=== PATIENT | female | born 1945 | race Caucasian/White ===

== ENCOUNTER → 2018-04-25 13:55 | Outpatient (CLI) | payer MEDICARE, OTHER, SELFPAY | PROVIDERS: PCP Physician Assistant; Visit Provider Physician Assistant | DX: M85.88 Other specified disorders of bone density and structure, other site (principal); Z78.0 Asymptomatic menopausal state; Z82.62 Family history of osteoporosis | CPT/HCPCS: 77080 ==

== ENCOUNTER → 2019-01-14 14:36 | Outpatient (CLI) | payer MEDICARE, OTHER, SELFPAY ==
[2019-01-14 15:35] LABS: Alanine Aminotransferase 23 IU/L (9-52); Albumin 4.6 g/dL (3.5-5.0); Albumin Globulin Ratio 1.6 (1.0-2.8); Alkaline Phosphatase 47 U/L (38-126); Aspartate Aminotransferase 28 IU/L (14-36); BUN Creatinine Ratio 17.5 (6-22); Bilirubin Total 0.5 mg/dL (0.2-1.3); Blood Urea Nitrogen 14 mg/dL (7-17); Calcium 9.7 mg/dL (8.4-10.2); Carbon Dioxide 30 mmol/L (22-32); Chloride 104 mmol/L (98-107); Estimated Glomerular Filt Rate > 60.0 mL/min (>60); Globulin 2.8 g/dL (1.7-4.1); Glucose 71 mg/dL (80-110); HEMOLYSIS < 15 (0-50); Potassium 4.7 mmol/L (3.4-5.1); Sodium 142 mmol/L (137-145); Total Protein 7.4 g/dL (6.3-8.2)
[2019-01-14 15:36] LABS: Iron 132 ug/dL (37-170)
[2019-01-14 15:40] LABS: Add Manual Diff / Slide Review NO; Basophils Absolute Auto 0 /uL (0-100); Basophils Percent Auto 0.7 % (0-2); Eosinophils Absolute Auto 0 /uL (0-450); Eosinophils Percent Auto 0.9 % (2-4); Hematocrit 37.1 % (36-46); Hemoglobin 12.4 g/dL (12.0-16.0); Lymphocytes Absolute Auto 1600 /uL (1100-4500); Lymphocytes Percent Auto 36.8 % (25-40); Mean Corpuscular HGB Conc 33.6 % (30-36); Mean Corpuscular Hemoglobin 31.7 PG (26-34); Mean Corpuscular Volume 94.3 fL (80-100); Monocytes Absolute Auto 600 /uL (0-900); Monocytes Percent Auto 13.2 % (3-14); Neutrophils Absolute Auto 2200 /uL (1500-7000); Neutrophils Percent Auto 48.4 % (50-75); Platelet Count 248 X10^3/uL (150-400); Red Blood Cell Count 3.93 X10^6/uL (4.0-5.2); Red Cell Distribution Width 14.3 % (11.6-14.8); White Blood Cell Count 4.5 X10^3/uL (4.5-11.0)
[2019-01-14 15:52] LABS: Vitamin D 25 Hydroxy (D3) 38.4 ng/mL (30.0-100.0)
[2019-01-14 16:06] LABS: Thyroid Stimulating Hormone 0.67 uIU/mL (0.47-4.68)
[2019-01-14 16:24] LABS: Vitamin B12 303 pg/mL (239-931)
== END ==
PROVIDERS: PCP Physician Assistant; Visit Provider Physician Assistant
DX: M81.0 Age-related osteoporosis without current pathological fracture (principal); R25.1 Tremor, unspecified; R26.89 Other abnormalities of gait and mobility; Z86.2 Personal history of diseases of the blood and blood-forming organs and certain disorders involving the immune mechanism
CPT/HCPCS: 36415; 80053; 82306; 82607; 83540; 84443; 85025

== ENCOUNTER → 2019-03-10 12:09 | Outpatient (CLI) | payer MEDICARE, OTHER, SELFPAY ==
--- NOTE | 2019-03-10 | DI.MG.S_ITS ---
BILATERAL DIGITAL SCREENING MAMMOGRAM 3D/2D WITH CAD WITH AUGMENTATION: 03/10/2019 CLINICAL: Routine screening. Family history of breast cancer. Comparison is made to exams dated: 11/05/2017 mammogram, 10/25/2015 mammogram, and 01/16/2013 mammogram - [facility]. The tissue of both breasts is extremely dense, which lowers the sensitivity of mammography. Current study was also evaluated with a Computer Aided Detection (CAD) system. Bilateral breast implants are stable. No significant masses, calcifications, or other findings are seen in either breast. There has been no significant interval change. IMPRESSION: NEGATIVE There is no mammographic evidence of malignancy. A 1 year screening mammogram is recommended. This exam was interpreted at Station ID: [id number]. NOTE: For mammograms, a report in lay terms will be sent to the patient. Approximately 15% of breast malignancies will not be visualized mammographically. In the management of a palpable breast mass, a negative mammogram must not discourage biopsy of a clinically suspicious lesion. Electronically Signed By: Chayo rosario/jaylon:03/10/2019 12:52:20 letter sent: Normal Exam ACR BI-RADS Category 1: Negative 3341F
== END ==
PROVIDERS: PCP Physician Assistant; Visit Provider Physician Assistant
DX: Z12.31 Encounter for screening mammogram for malignant neoplasm of breast (principal); Z80.3 Family history of malignant neoplasm of breast
CPT/HCPCS: 77063; 77067

== ENCOUNTER 2019-03-25 07:39 | Day surgery (SDC) | payer MEDICARE, OTHER, SELFPAY ==
--- NOTE | 2019-03-21 12:31 | PM.PREOP ---
Pre-operative Note Interval Note History & Physical reviewed/Exam performed by Physician: Yes Changes to H&P: No
--- NOTE | 2019-03-21 12:31 | PM.OP.1 ---
Operative Date/Time/Diagnoses Date of procedure: 03/25/19 Time of procedure: 08:45 Procedure & Clinicians Procedure: Preoperative diagnoses: 1. Right nuclear sclerotic and cortical cataract. Postoperative diagnoses: 1. Cataract removed by phacoemulsification with placement of posterior chamber intraocular lens. Procedure: Phacoemulsification with posterior chamber intraocular lens implant Surgeon: Carlene Avilez MD Complications: None Specimen: None Implant: ZCBOO+23.5 Blood loss: None Anesthesia: Retrobulbar with monitored standby Description of procedure: Patient presents with a complaint of decreased vision due to cataract which is affecting activities of daily living including driving and reading. Preoperative vision is 20/30 for distance with glare to 20/200. The patient wants surgery to improve vision. The patient was taken to the operating room and given IV sedation. A retrobulbar block consisting of 6 cc of 2% xylocaine without epinephrine mixed half and half with 0.5% Marcaine with 1 cc of hyaluronidase added is placed between the medial and lateral 1/3 of the inferior orbital rim. The eye is manually massaged for 30 sec, prepped using Betadine solution, and draped in the usual sterile fashion. Temporal approach was made, a 1 mm side-port incision was made 90? from the proposed clear corneal incision position. Phenylephrine 1.5% mixed with 1% xylocaine 0.2 cc was placed into the anterior chamber. Viscoat followed by Farnaz was then placed. A 2.6 mm clear incision with a 2.6 mm blade was placed. A 360 degree capsulorrhexis style capsulotomy was then performed with a cystitome needle on a Healon. Hydrodelineation and hydrodissection were performed. She had slight discomfort and therefore a topical lidocaine jelly was added with good relief. The phacoemulsification unit is introduced, and sculpting notice used to groove the central lens. It is then removed in chopping mode. Epi nucleus is removed with epinuclear mode and irrigation aspiration was used to remove the peripheral cortex. The posterior capsule is polished. The intraocular lens is selected, inspected, power confirmed, and placed in the posterior chamber. The wound was stromally hydrated and tested for leaks, there was none and it was left sutureless. Vigamox 0.1 cc was placed into the anterior chamber. Kenalog 0.2 cc was placed in the superior subconjunctival space. A drop of antibiotic and was placed and the eye was patched and shielded. The patient was stable and returned to the recovery room in excellent condition. Dictated by: Carlene Avilez MD Copy to: [facility]
[2019-03-25] MEDS: PROPARACAINE 0.5% OPHTH SOL 2 DROPS EYE-OP (08:04)
[2019-03-25] MEDS: CATARACT EYE COMPOUND (10 DROPS/SYRINGE) 3 DROPS EYE-OP ×5 (08:06→08:31)
[2019-03-25 08:14] VITALS: BP 121/78; PULSE 70; RESP 15; TEMP 36.1; O2SAT 99; BMI 19.0
--- NOTE | 2019-03-25 09:11 | SUR.OPER ---
Supine on eye stretcher, head on extension cradle secured with tape. Arms tucked at sides with blanket. Pillow under knees.
[2019-03-25] MEDS: HYALURONATE SODIUM 10 MG/ML SYRINGE INJ (09:15)
[2019-03-25] MEDS: BALANCED SALT IRRIG SOLN NO.2 15 ML IRR (09:15)
[2019-03-25] MEDS: BALANCED SALT IRRIG SOLN NO.2 500 ML, EPINEPHrine 1 MG IRR (09:15)
[2019-03-25] MEDS: CHONDROIDTIN/SOD HYALURONATE 1.05 ML SYRINGE INTRAOCULA (09:16)
[2019-03-25] MEDS: MOXIFLOXACIN INJ 5 MG/ML VIAL EYE-OP (09:18)
[2019-03-25] MEDS: NEOMYCIN/POLY/DEX OPHTH OINT 1 APPLIC EYE-RIGHT (09:18)
[2019-03-25] MEDS: PHENYLEPHRINE/LIDOCAINE VIAL (OR) 0.2 ML EYE-OP (09:19)
[2019-03-25] MEDS: TRIAMCINOLONE 50 MG/5 ML VIAL INJ (09:19)
[2019-03-25] MEDS: LIDOCAINE 2% 4 ML, BUPIVACAINE 0.5% (PF) 4 ML, HYALURONIDASE 150 UNIT INJ (09:20)
[2019-03-25] MEDS: LIDOCAINE JELLY 2% 5 ML 1 APPLIC TOP (09:22)
[2019-03-25 09:45] VITALS: BP 119/72; PULSE 70; RESP 15; TEMP 36.8; O2SAT 99
== END 2019-03-25 10:00 | disposition home or self-care (01) ==
LOC: OR 07:41
PROVIDERS: PCP Physician Assistant; Visit Provider Ophthalmology
PROC: (CPT 66984; principal; 2019-03-25 08:45)
DX: H25.811 Combined forms of age-related cataract, right eye (principal)
CPT/HCPCS: 66984; J0171; J2704; J3301; J3470

== ENCOUNTER 2019-04-01 09:26 | Day surgery (SDC) | payer MEDICARE, OTHER, SELFPAY ==
--- NOTE | 2019-03-28 12:57 | P.OP_ITS ---
Operative Date/Time/Diagnoses Date of procedure: 04/01/19 Time of procedure: 10:45 Procedure & Clinicians Procedure: Preoperative diagnoses: 1. Left nuclear sclerotic and cortical cataract. 2. Narrow angle anatomy with high hyperopic status. Postoperative diagnoses: 1. Cataract removed by phacoemulsification with placement of posterior chamber intraocular lens. Procedure: Phacoemulsification with posterior chamber intraocular lens implant Surgeon: Carlene Avilez MD Complications: None Specimen: None Implant: ZCBOO+26.5 Blood loss: None Anesthesia: Retrobulbar with monitored standby Description of procedure: Patient presents with a complaint of decreased vision due to cataract which is affecting activities of daily living especially distance. She has an anisotropia since recent right cataract surgery. The patient wants surgery to improve vision. The patient was taken to the operating room and given IV sedation. A retrobulbar block consisting of 6 cc of 2% xylocaine without epinephrine mixed half and half with 0.5% Marcaine with 1 cc of hyaluronidase added is placed between the medial and lateral 1/3 of the inferior orbital rim. The eye is manually massaged for 30 sec, prepped using Betadine solution, and draped in the usual sterile fashion. Temporal approach was made, a 1 mm side-port incision was made 90? from the proposed clear corneal incision position. Phenylephrine 1.5% mixed with 1% xylocaine 0.2 cc was placed into the anterior chamber. Viscoat followed by Ryanon was then placed. A 2.6 mm clear incision with a 2.6 mm blade was placed. A 360 degree capsulorrhexis style capsulotomy was then performed with a cystitome needle on a Healon. Hydrodelineation and hydrodissection were performed.She has dense arcus sinilus. The phacoemulsification unit is introduced, and sculpting notice used to groove the central lens. It is then removed in chopping mode. Epi nucleus is removed with epinuclear mode and irrigation aspiration was used to remove the peripheral cortex. The posterior capsule is polished. The intraocular lens is selected, inspected, power confirmed, and placed in the posterior chamber. The wound was stromally hydrated and tested for leaks, there was none and it was left sutureless. Vigamox 0.1 cc was placed into the anterior chamber. Kenalog 0.2 cc was placed in the superior subconjunctival space. A drop of antibiotic and was placed and the eye was patched and shielded. The patient was stable and returned to the recovery room in excellent condition. Dictated by: Carlene Avilez MD Copy to: [facility]
--- NOTE | 2019-03-28 12:57 | PM.PREOP ---
Pre-operative Note Interval Note History & Physical reviewed/Exam performed by Physician: Yes Changes to H&P: No
[2019-04-01] MEDS: PROPARACAINE 0.5% OPHTH SOL 2 DROPS EYE-OP (10:00)
[2019-04-01] MEDS: CATARACT EYE COMPOUND (10 DROPS/SYRINGE) 3 DROPS EYE-OP (10:05)
[2019-04-01 10:09] VITALS: BP 116/71; PULSE 73; RESP 18; TEMP 36.5; O2SAT 99; BMI 19.5
[2019-04-01] MEDS: LIDOCAINE 2% 4 ML, BUPIVACAINE 0.5% (PF) 4 ML, HYALURONIDASE 150 UNIT INJ (10:58)
[2019-04-01] MEDS: CHONDROIDTIN/SOD HYALURONATE 1.05 ML SYRINGE INTRAOCULA (11:12)
[2019-04-01] MEDS: HYALURONATE SODIUM 10 MG/ML SYRINGE INJ (11:12)
[2019-04-01] MEDS: MOXIFLOXACIN INJ 5 MG/ML VIAL EYE-OP (11:13)
[2019-04-01] MEDS: PHENYLEPHRINE/LIDOCAINE VIAL (OR) 0.2 ML EYE-OP (11:13)
[2019-04-01] MEDS: NEOMYCIN/POLY/DEX OPHTH OINT 1 APPLIC EYE-LEFT (11:13)
[2019-04-01] MEDS: TRIAMCINOLONE 50 MG/5 ML VIAL INJ (11:14)
[2019-04-01] MEDS: BALANCED SALT IRRIG SOLN NO.2 500 ML, EPINEPHrine 1 MG IRR (11:14)
[2019-04-01 13:45] VITALS: BP 142/74; PULSE 69; RESP 20; TEMP 36.2; O2SAT 100
== END 2019-04-01 11:55 | disposition home or self-care (01) ==
LOC: OR 09:28
PROVIDERS: PCP Physician Assistant; Visit Provider Ophthalmology
PROC: (CPT 66984; principal; 2019-04-01 10:45)
DX: H25.812 Combined forms of age-related cataract, left eye (principal)
CPT/HCPCS: 66984; J0171; J2704; J3301; J3470

== ENCOUNTER → 2019-04-02 08:56 | Outpatient (CLI) | payer MEDICARE, OTHER, SELFPAY ==
[2019-04-02 10:34] LABS: Vitamin D 25 Hydroxy (D3) 34.1 ng/mL (30.0-100.0)
[2019-04-02 11:07] LABS: Vitamin B12 448 pg/mL (239-931)
== END ==
PROVIDERS: PCP Physician Assistant; Visit Provider Physician Assistant
DX: E53.8 Deficiency of other specified B group vitamins (principal); E55.9 Vitamin D deficiency, unspecified; M85.80 Other specified disorders of bone density and structure, unspecified site
CPT/HCPCS: 36415; 82306; 82607

== ENCOUNTER → 2019-04-21 12:53 | Outpatient (CLI) | payer MEDICARE, OTHER, SELFPAY | PROVIDERS: PCP Physician Assistant; Visit Provider Physician Assistant | DX: M85.851 Other specified disorders of bone density and structure, right thigh (principal); Z78.0 Asymptomatic menopausal state; Z82.62 Family history of osteoporosis | CPT/HCPCS: 77080 ==

== ENCOUNTER → 2019-05-28 15:26 | Outpatient (CLI) | payer MEDICARE, OTHER, SELFPAY ==
[2019-05-28 15:32] LABS: Bacteria Urine None Seen; RBC Urine None Seen (0-5/HPF); WBC Urine None Seen (0-5/HPF)
[2019-05-28 16:00] LABS: Appearance Urine UA CLOUDY; Bilirubin Urine UA NEGATIVE (NEGATIVE); Color Urine UA YELLOW; Glucose Urine UA NEGATIVE (Negative); Ketones Urine UA NEGATIVE (NEGATIVE); Leukocyte Esterase Urine UA NEGATIVE (NEGATIVE); Nitrite Urine UA NEGATIVE (Negative); Occult Blood Urine UA TRACE-LYSED (Negative); Protein Urine UA NEGATIVE (Negative); Specific Gravity Urine UA <=1.005 (1.000-1.035); Urobilinogen Urine UA 0.2 E.U./dL (0.2)
[2019-05-28 16:22] LABS: Amorphous Sediment Urine 3+; Culture Indicated Urine Cult Not Indicated; pH Urine UA 7.5 (4.5-8.0)
== END ==
PROVIDERS: PCP Physician Assistant; Visit Provider Physician Assistant
DX: R30.0 Dysuria (principal)
CPT/HCPCS: 81001

== ENCOUNTER → 2019-07-13 12:10 | Outpatient (CLI) | payer MEDICARE, OTHER, SELFPAY ==
[2019-07-13 14:26] LABS: Vitamin B12 565 pg/mL (239-931)
[2019-07-13 16:22] LABS: Vitamin D 25 Hydroxy (D3) 39.3 ng/mL (30.0-100.0)
== END ==
PROVIDERS: PCP Physician Assistant; Visit Provider Physician Assistant
DX: E55.9 Vitamin D deficiency, unspecified (principal); M81.0 Age-related osteoporosis without current pathological fracture; E53.8 Deficiency of other specified B group vitamins
CPT/HCPCS: 36415; 82306; 82607

== ENCOUNTER → 2019-08-20 17:54 | Outpatient (ROUT) | payer MEDICARE, OTHER, SELFPAY ==
[2019-08-20 19:32] LABS: Blood Urea Nitrogen 18 mg/dL (7-17); Calcium 10.1 mg/dL (8.4-10.2); Carbon Dioxide 27 mmol/L (22-32); Chloride 102 mmol/L (98-107); Cholesterol 243 mg/dL (140-199); Estimated Glomerular Filt Rate > 60.0 mL/min (>60); Glucose 144 mg/dL (80-110); HDL Cholesterol 109 mg/dL (40-60); HEMOLYSIS < 15 (0-50); LDL Cholesterol Calculated 115 mg/dL (<100); Potassium 3.9 mmol/L (3.4-5.1); Sodium 139 mmol/L (137-145); Triglycerides 95 mg/dL (35-150)
[2019-08-20 20:02] LABS: TSH w/ Reflex to FT4 0.94 uIU/mL (0.47-4.68)
== END ==
PROVIDERS: PCP Physician Assistant; Visit Provider Internal Medicine
DX: Z13.220 Encounter for screening for lipoid disorders (principal); R25.1 Tremor, unspecified
CPT/HCPCS: 80048; 80061; 84443

== ENCOUNTER → 2019-09-15 13:53 | Outpatient (ROUT) | payer MEDICARE, OTHER, SELFPAY | PROVIDERS: PCP Physician Assistant; Visit Provider Physician Assistant | DX: N39.0 Urinary tract infection, site not specified (principal) | CPT/HCPCS: 87077; 87086; 87186 ==

== ENCOUNTER → 2019-11-25 11:14 | Outpatient (CLI) | payer MEDICARE, OTHER, SELFPAY ==
--- NOTE | 2019-11-25 | DI.MRI.S_ITS ---
PROCEDURE: MR HEAD/BRAIN WO CON INDICATIONS: Repeated falls TECHNIQUE: Non-contrast axial T1 spin echo, axial T2 fast spin echo, sagittal and axial FLAIR, coronal T2 fast spin echo, axial gradient echo, axial diffusion and ADC through the brain. COMPARISON: None. FINDINGS: Image quality: Excellent. CSF spaces: Ventricles appear symmetric in size and shape. Basal cisterns are patent. No extra-axial fluid collections. Brain: No intracranial bleeds or mass effects. There is cerebral volume loss for age. There are periventricular and deep white matter chronic small vessel ischemic changes. Brainstem appears normal. Diffusion-weighted images show no acute ischemic insults. No chronic ischemic insults. Normal intravascular flow voids are present. Skull and face: Calvarial bone marrow is normal in signal. Orbits are normal. Sinuses: Sinuses and mastoids are clear. IMPRESSION: No sign of mass, hemorrhage, or prior stroke. Mild to moderate microvascular atherosclerotic change is present in the deep white matter of each hemisphere, expected for age. No sign of hydrocephalus. Dictated by: Stanton Barger M.D. on 11/25/2019 at 12:39 Approved by: Stanton Barger M.D. on 11/25/2019 at 12:43
== END ==
PROVIDERS: PCP Internal Medicine; Referring Provider Internal Medicine; Visit Provider Internal Medicine
DX: R29.6 Repeated falls (principal)
CPT/HCPCS: 70551

== ENCOUNTER 2020-02-09 07:20 | Outpatient (RCR) | payer MEDICARE, OTHER, SELFPAY ==
--- NOTE | 2020-02-09 15:30 | OT.OP.EVAL ---
Visit Care Team Role Provider Type Helen Burroughs MD Primary Care Provider Physician Specialty: Internal Medicine Address: [address] [place] [address], [id number] Email: [email or web address] Niurka Ritter MD Attending Provider Non-Staff Referring Provider Specialty: Neurology Address: [address] [facility], [place], [address] Email: Occupational Therapy Initial Evaluation OT Outpatient Adult Evaluation Start: 02/09/20 07:26 Freq: Status: Active Protocol: Document 02/09/20 07:27 AMS (Rec: 02/09/20 08:16 AMS [id number]) General Information Visit Start Time 07:30 Visit Stop Time 08:15 Total Visit Minutes 45 Visit Number 07/17 Plan of Care Dates 02/09/20-02/09/20 Insurance Information Medicare Treatment Setting Outpatient Care Note Type Initial Evaluation Identification Confirmed Yes Identification Confirmed By Patient Assessment/Plan Treatment Assessment Crystal is a 74 year-old left hand dominant female referred to outpatient OT secondary to dx of Parkinsons. Crystal is mainly concerned about her balance. She has a h /o frequent falling; she reports loss of balance when looking up and has difficulty completing s-s from certain surfaces (sofa). Discussed soft vs firm seat cushions and modifications that may support her success. She denied dizziness. Crystal does report difficulties w/ saliva management; discussed seeing a speech therapist to assist her in this area. She denied seeing a speech therapist previously. She recently had cataract surgery; she does not wear glasses. Eye doctor is sending her to specialist. She has sensitivities to light. Reading is a past time; she struggles w/ reading currently and has difficulty tracking to the L. Education was provided and recommended exploring books on CD/tape. Functional activities: Crystal resides with spouse. Crystal reports difficulties with writing; decreased fluidity and size compared to PLOF based on self report. Recommended focusing on 'big' formation of letters and w/ writing. Also discussed various AE available and techniques to support fluidity ; increased errors observed on this date w/ metronome use w/ written work. Crystal denied troubles with buttons and zippers and managing most jewelry items. She did state that she encountered difficulties with necklace clasps and has trouble w/ earrings. Crystal denied any troubles with dressing. Crystal reported a little confusion managing cell telephone. Crystal reports mod I w/ bathing and toileting. Her did buy a suction cup grab bar for the shower stall; discussed importance of installing into studs of home. Self feeding: Crystal reports having trouble staying in front of the plate but no difficulties utilizing utensils. She is aware that she tends to lean to the right . No further OT is needed at this time. Patient in agreement. Recommend re- evaluating in the future as deemed appropriate by PCP. Therapeutic Contents Self-Care Patient Recommendations Discharge from Occupational Therapy Suggested Referrals Physical Therapy,Speech Therapy
== END 2020-02-12 15:36 ==
LOC: OT 07:20
PROVIDERS: PCP Internal Medicine; Referring Provider Psychiatry & Neurology Neurology; Visit Provider Psychiatry & Neurology Neurology
DX: G20 Parkinson's disease (principal)
CPT/HCPCS: 97165; 97535

== ENCOUNTER → 2020-02-29 18:56 | Outpatient (ROUT) | payer MEDICARE, OTHER, SELFPAY ==
[2020-02-29 19:07] LABS: BUN Creatinine Ratio 25.9 (6-22); Blood Urea Nitrogen 21 mg/dL (7-17); Calcium 9.6 mg/dL (8.4-10.2); Carbon Dioxide 29 mmol/L (22-32); Chloride 101 mmol/L (98-107); Estimated Glomerular Filt Rate > 60.0 mL/min (>60); Glucose 156 mg/dL (80-110); HEMOLYSIS 20 (0-50); Potassium 3.8 mmol/L (3.4-5.1); Sodium 137 mmol/L (137-145)
[2020-02-29 19:56] LABS: Vitamin B12 > 1000 pg/mL (239-931)
[2020-03-02 04:36] LABS: RPR Screen Non Reactive (Non Reactive)
== END ==
PROVIDERS: PCP Internal Medicine; Visit Provider Internal Medicine
DX: R41.3 Other amnesia (principal); R39.15 Urgency of urination
CPT/HCPCS: 80048; 82607; 86592; 87086

== ENCOUNTER → 2020-03-04 08:58 | Outpatient (CLI) | payer MEDICARE, OTHER, SELFPAY ==
[2020-03-04 09:15] LABS: Bacteria Urine None Seen; RBC Urine None Seen (0-5/HPF); WBC Urine None Seen (0-5/HPF)
[2020-03-04 09:53] LABS: Appearance Urine UA CLEAR; Bilirubin Urine UA NEGATIVE (NEGATIVE); Color Urine UA YELLOW; Glucose Urine UA NEGATIVE (Negative); Ketones Urine UA NEGATIVE (NEGATIVE); Leukocyte Esterase Urine UA NEGATIVE (NEGATIVE); Nitrite Urine UA NEGATIVE (Negative); Occult Blood Urine UA NEGATIVE (Negative); Protein Urine UA NEGATIVE (Negative); Specific Gravity Urine UA <=1.005 (1.000-1.035); Urobilinogen Urine UA 0.2 E.U./dL (0.2)
[2020-03-04 09:57] LABS: pH Urine UA 6.5 (4.5-8.0)
[2020-03-04 10:00] LABS: Culture Indicated Urine Cult Not Indicated; Urine Comments Microscopic Normal
== END ==
PROVIDERS: PCP Internal Medicine; Referring Provider Internal Medicine; Visit Provider Internal Medicine
DX: R39.15 Urgency of urination (principal)
CPT/HCPCS: 81001

== ENCOUNTER → 2020-03-24 11:15 | Outpatient (CLI) | payer MEDICARE, OTHER, SELFPAY ==
--- NOTE | 2020-03-24 | DI.MG.S_ITS ---
BILATERAL DIGITAL SCREENING MAMMOGRAM 3D/2D WITH CAD WITH AUGMENTATION: 03/24/2020 CLINICAL: Routine screening. Family history of breast cancer. Comparison is made to exams dated: 03/10/2019 mammogram, 11/05/2017 mammogram, and 10/25/2015 mammogram - [facility]. The tissue of both breasts is extremely dense, which lowers the sensitivity of mammography. Current study was also evaluated with a Computer Aided Detection (CAD) system. Bilateral breast implants are stable. No significant masses, calcifications, or other findings are seen in either breast. There has been no significant interval change. IMPRESSION: NEGATIVE There is no mammographic evidence of malignancy. A 1 year screening mammogram is recommended. This exam was interpreted at Station ID: [id number]. NOTE: For mammograms, a report in lay terms will be sent to the patient. Approximately 15% of breast malignancies will not be visualized mammographically. In the management of a palpable breast mass, a negative mammogram must not discourage biopsy of a clinically suspicious lesion. Electronically Signed By: Curtis Shelton M.D., jr/jaylon:03/24/2020 13:21:54 letter sent: Normal Exam ACR BI-RADS Category 1: Negative 3341F
== END ==
PROVIDERS: PCP Internal Medicine; Referring Provider Internal Medicine; Visit Provider Internal Medicine
DX: Z12.31 Encounter for screening mammogram for malignant neoplasm of breast (principal); Z80.3 Family history of malignant neoplasm of breast
CPT/HCPCS: 77063; 77067

== ENCOUNTER → 2020-06-23 09:39 | Outpatient (CLI) | payer MEDICARE, OTHER, SELFPAY | PROVIDERS: Family Provider Internal Medicine; PCP Internal Medicine; Referring Provider Ophthalmology; Visit Provider Ophthalmology | DX: H53.2 Diplopia (principal) | CPT/HCPCS: 36415; 83519; 86255 ==

== ENCOUNTER 2020-07-25 09:30 | Outpatient (RCR) | payer MEDICARE, OTHER, SELFPAY ==
--- NOTE | 2020-05-02 16:26 | OT.OP.EVAL ---
Visit Care Team Role Provider Type Helen Burroughs MD Attending Provider Physician Family Provider Primary Care Provider Referring Provider Specialty: Internal Medicine Address: [address] [place] [address], [id number] Email: [email or web address] Occupational Therapy Initial Evaluation OT Outpatient Adult Evaluation Start: 05/02/20 07:27 Freq: Status: Active Protocol: Document 05/02/20 08:30 AMS (Rec: 05/02/20 07:44 AMS [id number]) General Information Visit Start Time 07:30 Visit Stop Time 08:18 Total Visit Minutes 48 Visit Number 07/17 Plan of Care Dates 05/02/20-06/27/20 Insurance Information Medicare Treatment Setting Outpatient Care Note Type Initial Evaluation Goals Treatment Adaptive equipment education. Shelter Goals 1. Crystal will be modified independent w/ execution of home exercise program utilizing provided written and visual instructions from therapist. 2. Crystal will be able to identify at least 2 different pieces of adaptive equipment that will support her functional independence with active participation in meaningful activities (e.g., ADLs, such as feeding, dressing). Assessment/Plan Treatment Assessment Patient is a 74 year-old left hand dominant female referred to outpatient OT by PCP secondary to diagnosis of Parkinson's disease. PMH: Medical History form completed and placed in paper chart. Evaluation findings: Crystal presents w/ bilateral hand cramping L > R. She cuts and lifts heavy items w/ her right hand. 4 out of 10 indicated on the Pain Assessment Grid relative to her left shoulder and left knee and hand(s). Crystal has been evaluated by speech therapist and will be evaluated by PT on Saturday. Meaningful activities: Denied difficulties w/ g/h tasks. Difficulties w/ managing buttons and snaps; thus, has adjusted wardrobe accordingly. Difficulties w/ management of distal LB dressing; however, she denied diff w/ socks and is wearing shoes w/ shoe laces and was observed to tie shoes without assistance or request for assistance. d/t difficulties w/ donning pants = likely diff w/ lower body undergarment managment. 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 Cont use of bra w/ posterior clasping w/ reported difficulties w/ clasping. Education provided re: front clasping bra and/or clasping prior to donning upper body undergarment as a shirt/ sportsbra. Receives pedicure to care for feet, including managing toe nail length(s). Difficulties w/ clipping fingernails; unable to use traditional nail clippers however, uses file as a compensatory strategy. Crystal has difficulty w/ zippers; she reports increased success w/ no visual fixation when completing. Crystal is able to don watch L wrist without difficulty; denies wearing jewelry secondary to difficulties w/ clasps. Crystal has trouble managing foods w/ self-feeding; reports getting mat dirty frequently and not going out to eat w/ her . Recommended use of rocker knife, weighted utensils, built-up utensils, as well as lip plate to support scooping. Impaired fine motor coordination; reported reduction in clarity of handwriting/decreased accuracy w/ placement of signature on single line. Observations were w/ use of standard width writing utensil . Visual impairment noted; use of phone w/ increased font size. Difficulty reported w/ looking down (as noted w/ zipper management) looking to the left body of space and looking up in visual field. Difficulty w/ managing personal calendar; manages calendar on phone. Use of left second digit for managing phone tabs/et cetera. 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 Averages obtained from 3 trials on dynamometer. Outpatient OT is recommended to address these areas in order to maximize Crystal's success/functional independence w/ active participation in meaningful activities. Comment 8 weeks Treatment Frequency Once a Week Therapeutic Contents Active Range of Motion, Adaptive Equipment Education, Client Education,Cognitive Skills Development,Functional Activities,Home Exercise Program,Joint Protection, Education,Neurodevelopment Treatment,Neuromuscular Re- Education,Self-Care,Stretching /Flexibility Activities, Therapeutic Activities, Therapeutic Exercises Patient Instruction Home Exercise Program,Plan of Care,Questions/Concerns
--- NOTE | 2020-05-09 10:27 | OT.OP.TRT ---
Visit Care Team Role Provider Type Helen Burroughs MD Attending Provider Physician Family Provider Primary Care Provider Referring Provider Specialty: Internal Medicine Address: [address] [place] [id number] Email: [email or web address] Occupational Therapy Treatment Note OT Outpatient Treatment Note - Adult Start: 05/02/20 07:27 Freq: Status: Active Protocol: Document 05/09/20 09:57 AMS (Rec: 05/09/20 10:25 AMS [id number]) OT Outpatient Adult Treatment Note Session Time Visit Start Time 08:30 Visit Stop Time 09:20 Total Visit Minutes 50 Visit Information Visit Number 08/[id number] Plan of Care Dates 05/02/20-06/27/20 Insurance Information Medicare Setting Treatment Setting Outpatient Care Visit Type Note Type Treatment Note General Information General Information Patient is a 74 year-old left hand dominant female referred to outpatient OT by PCP secondary to diagnosis of Parkinson's disease. PMH: Medical History form completed and placed in paper chart. - Subjective Identification Type Name Identification Reconciled With Medical Record Observations Crystal was seen 1:1 for OT treatment session. Crystal saw PT prior to OT treatment session. Patient reportedly had fallen this a.m. - Objective Objective Measurements Please refer to below for progress towards meeting established OT goals: Lateral Riddle Pinch: Avg. 6.0# of force w/ R pinch; Avg 8.8# of force w/ L pinch. Avg = obtained from avg of 3 trials with Lateral Riddle Pinch Strength testing. Norms for women 70-75 years of age; R Lateral Riddle Pinch = 14.5 +/- 2 .9 (> 2 SD below the mean); L lateral Riddle Pinch = 13.8 +/- 3 .0 (> 1 SD below the mean). [facility] Goals 1. Crystal will be modified independent w/ execution of home exercise program utilizing provided written and visual instructions from therapist. 2. Crystal will be able to identify at least 2 different pieces of adaptive equipment that will support her functional independence with active participation in meaningful activities (e.g., ADLs, such as feeding, dressing). - Treatment 1 Descriptor HEP/POC/Education. Therapist recommended that Crystal and her explore the Parkinson '[employer] website given the many resources that the foundation has made available to the community (including videos for caregivers who have loved ones dx w/ Parkinson's disease). Recommended further exploration of audio resources that are available through the [employer]. Recommended practicing of signature given that this was an activity that was identified as meaningful to the patient. Discussed throw rugs and some additional adaptive strategies for the bathroom given that patient is currently showering independently without use of AE. Recommended following up w / PT in re: interest in biking . - Assessment Assessment of Improvement Education was provided. See treatment section of note for specific details. Decreased lateral pinch strength; R weakness > L weakness. Primary PT at [facility] is not utilizing the BIG approach to treatment; Crystal reportedly was given these movement patterns previously w/ PT. Current primary PT indicated that shoulder discomfort is encountered when completing the BIG movement patterns. Focus on meaningful activity ( signature) and education. Therapist did not explore shoulder on this treatment date; thus, will need to explore further at time of next treatment session. Home Exercise Program Please refer to treatment section of note for specific details. - Plan Therapy Recommendations Continue with Current Program, Advance per Rehabilitation Protocol
--- NOTE | 2020-05-16 15:30 | OT.OP.TRT ---
Visit Care Team Role Provider Type Helen Burroughs MD Attending Provider Physician Family Provider Primary Care Provider Referring Provider Specialty: Internal Medicine Address: [address] [place] [address], [id number] Email: [email or web address] Occupational Therapy Treatment Note OT Outpatient Treatment Note - Adult Start: 05/02/20 07:27 Freq: Status: Active Protocol: Document 05/16/20 15:30 AMS (Rec: 05/20/20 15:19 AMS [id number]) OT Outpatient Adult Treatment Note Session Time Visit Start Time 09:30 Visit Stop Time 10:15 Total Visit Minutes 45 Visit Information Visit Number 09/14 Plan of Care Dates 05/02/20-06/27/20 Insurance Information Medicare Setting Treatment Setting Outpatient Care Visit Type Note Type Treatment Note - Subjective Identification Type Name Identification Reconciled With Medical Record Observations I fell the other night on cemet. I was trying to step over a small donahue per Crystal. - Objective Objective Measurements Please refer to below for progress towards meeting established OT goals. Short Term Goals 1. 0-110 degrees active left shoulder abd ROM. 05/16/20 = NEW GOAL 2. 0-50 degrees active left shoulder ER. 05/16/20 = NEW GOAL 3. 4/5 MMT left shoulder extension. 05/16/20 = NEW GOAL 4. 4/5 MMT left shoulder abduction. 05/16/20 = NEW GOAL 5. 4/5 MMT left shoulder ER. 05/16/20 = NEW GOAL Covering Machine Tender Goals 1. Crystal will be modified independent w/ execution of home exercise program utilizing provided written and visual instructions from therapist. 2. Crystal will be able to identify at least 2 different pieces of adaptive equipment that will support her functional independence with active participation in meaningful activities (e.g., ADLs, such as feeding, dressing). - Treatment 2 Descriptor Manual therapy/passive range of motion to address tightness of anterior chest. 1 Descriptor HEP/POC/Education. Provided written and visual instructions for UE stretches; 3 different pec stretches were recommended for morning prior to completion of BIG program. Reviewed all exercises in treatment session . Stretches were selected in supine positioning based on fall risk/recent falls. Crystal denied questions. Exercises 2 Descriptor Pec stretches. 'T' stretch supine. 2 x 20 sec stretch. Football stretch supine. 2 x 20 sec stretch. Crocodile/UB and LB dissociation. 2 x 20 sec stretch. 1 Descriptor ROM. MMT testing. - Assessment Assessment of Improvement Decreased sh ext R, decreased L sh abd and ER. Elbow flex, ext and forearm supination/ pronation WFL. Decreased B UE strength; L UE weakness > R UE weakness. Decreased elbow ext strength B. Recommend addressing UE AROM, UE strength (primarily of the L UE based on patient's complaints/concerns), bilateral elbow strength to support functional abilities. Recommend revisiting functional activities, including signature and any other AE needs to support Crystal's functional independence. Home Exercise Program Please refer to treatment section of note for specific details. - Plan Therapy Recommendations Continue with Current Program, Advance per Rehabilitation Protocol
--- NOTE | 2020-05-24 10:21 | OT.OP.TRT ---
Visit Care Team Role Provider Type Helen Burroughs MD Attending Provider Physician Family Provider Primary Care Provider Referring Provider Specialty: Internal Medicine Address: [address] [place] [address], [address] Email: [email or web address] Occupational Therapy Treatment Note OT Outpatient Treatment Note - Adult Start: 05/02/20 07:27 Freq: Status: Active Protocol: Document 05/24/20 10:00 AMS (Rec: 05/24/20 10:21 AMS [id number]) OT Outpatient Adult Treatment Note Session Time Visit Start Time 08:30 Visit Stop Time 09:15 Total Visit Minutes 45 Visit Information Visit Number 10/15 Plan of Care Dates 05/02/20-06/27/20 Insurance Information Medicare Setting Treatment Setting Outpatient Care Visit Type Note Type Treatment Note General Information General Information Patient is a 74 year-old left hand dominant female referred to outpatient OT by PCP secondary to diagnosis of Parkinson's disease. PMH: Medical History form completed and placed in paper chart. - Subjective Identification Type Name Identification Reconciled With Medical Record Observations I fell again per Crystal. I was trying to do too many things. I was trying to reach for the croutons. I left my cane at home. It hurts this thumb. - Objective Objective Measurements Please refer to below for progress towards meeting established OT goals. Short Term Goals 1. 0-110 degrees active left shoulder abd ROM. 05/16/20 = NEW GOAL 2. 0-50 degrees active left shoulder ER. 05/16/20 = NEW GOAL 3. 4/5 MMT left shoulder extension. 05/16/20 = NEW GOAL 4. 4/5 MMT left shoulder abduction. 05/16/20 = NEW GOAL 5. 4/5 MMT left shoulder ER. 05/16/20 = NEW GOAL Penitentiary Goals 1. Crystal will be modified independent w/ execution of home exercise program utilizing provided written and visual instructions from therapist. 2. Crystal will be able to identify at least 2 different pieces of adaptive equipment that will support her functional independence with active participation in meaningful activities (e.g., ADLs, such as feeding, dressing). - Treatment 3 Descriptor Functional tasks. Use of supply technician. 2 Descriptor Manual therapy/passive range of motion to address tightness of anterior chest. 1 Descriptor HEP/POC/Education. Crystal reported that she is going to order the lip plate, biofreeze , and a grabber. Practiced grabber in treatment session. Reviewed stretches previously recommended and added additional exercises, including ROM exercise for thumb. Crystal denied questions . Exercises 4 Descriptor Thumb ROM/Education. CMC ROM 1x10. Self manual mobilization ; thumb adductor release. D1 2x10. 3 Descriptor UEB. x 5 minutes. 2 Descriptor Pec stretches. 'T' stretch supine. 2 x 20 sec stretch. Football stretch supine. 2 x 20 sec stretch. Crocodile/UB and LB dissociation. 2 x 20 sec stretch. 1 Descriptor ROM. Cane. Bilateral Shoulder Flexion. Supine. 3x10. Snow angels. Bilateral Shoulder Abduction. Supine. 3x10. - Assessment Assessment of Improvement Report of another fall; notified colleagues via e-mail of Crystal's report. Crystal arrived without cane; verbal indication that cane causes pain in the right hand. R thumb adductor tightness; tendency of radial side of hand/digits to position ulnarly. Thus, introduced D1 exercise. Tendency towards hyperextension of MP and IPJ of R thumb. Increased success w/ supply technician w/ practice. Patient report of tightness s/ p completion of exercises. Recommend reviewing grabber, thumb/hand exercises (consider putty if it does not exacerbate pain symptoms), and provided written and visual instructions of exercises. Home Exercise Program Please refer to treatment section of note for specific details. - Plan Therapy Recommendations Continue with Current Program, Advance per Rehabilitation Protocol
--- NOTE | 2020-05-30 10:27 | OT.OP.TRT ---
Visit Care Team Role Provider Type Helen Burroughs MD Attending Provider Physician Family Provider Primary Care Provider Referring Provider Specialty: Internal Medicine Address: [address] [place] [address], [id number] Email: [email or web address] Occupational Therapy Treatment Note OT Outpatient Treatment Note - Adult Start: 05/02/20 07:27 Freq: Status: Active Protocol: Document 05/30/20 10:14 AMS (Rec: 05/30/20 10:27 AMS [id number]) OT Outpatient Adult Treatment Note Session Time Visit Start Time 08:30 Visit Stop Time 09:15 Total Visit Minutes 45 Visit Information Visit Number 11/14 Plan of Care Dates 05/02/20-06/27/20 Insurance Information Medicare Setting Treatment Setting Outpatient Care Visit Type Note Type Treatment Note General Information General Information Patient is a 74 year-old left hand dominant female referred to outpatient OT by PCP secondary to diagnosis of Parkinson's disease. PMH: Medical History form completed and placed in paper chart. - Subjective Identification Type Name Identification Reconciled With Medical Record Observations I got my walker yesterday per Crystal. No, I have not yet ordered anything from the catalog. There are quite a few things in there that would be helpful. I am going to be ordering a lip plate and a solid tire finisher/grabber per Crystal. - Objective Objective Measurements Please refer to below for progress towards meeting established OT goals. Short Term Goals 1. 0-110 degrees active left shoulder abd ROM. 05/16/20 = 25 % met 2. 0-50 degrees active left shoulder ER. 05/16/20 = 25% met 3. 4/5 MMT left shoulder extension. 05/16/20 = 25% met 4. 4/5 MMT left shoulder abduction. 05/16/20 = 25% met 5. 4/5 MMT left shoulder ER. 05/16/20 = 25% met Chlorinator Goals 1. Crystal will be modified independent w/ execution of home exercise program utilizing provided written and visual instructions from therapist. 05/30/20= 25% met GOALS MET Cyrstal will be able to identify at least 2 different pieces of adaptive equipment that will support her functional independence with active participation in meaningful activities (e.g., ADLs, such as feeding, dressing). *MET - Treatment 3 Descriptor Functional tasks. Use of solid tire finisher. 2 Descriptor Manual therapy/passive range of motion to address tightness of anterior chest. 1 Descriptor HEP/POC/Education. Provided updated home exercise program to Crystal; written and visual instructions were provided. Original was placed in paper chart. Exercises were reviewed in treatment session. Exercises 7 Descriptor Posture. Scapular row. Standing. TB #1. 2x15 repetitions. 6 Descriptor Bilateral UE exercises. Sh ext. Standing. 1# DB. 2x15 repetitions. Sh abd. Sidelying. 1# DB. 2x15 repetitions. 5 Descriptor L sh strengthening ER sidelying. 1# DB. 2x15 repetitions. Posterior deltoid sidelying. 1 # DB. 2x15 repetitions. 4 Descriptor Thumb ROM/Education. CMC ROM 1x10. Self manual mobilization ; thumb adductor release. D1 2x10. 3 Descriptor UEB. x 5 minutes. 2 Descriptor ROM. 'T' stretch supine. 2 x 20 sec stretch. Football stretch supine. 2 x 20 sec stretch. Crocodile/UB and LB dissociation. 2 x 20 sec stretch. Yoga ball. Child pose. [place] morris. 2x20 sec stretch. 1 Descriptor ROM. Cane. Bilateral Shoulder Flexion. Supine. 3x10. Snow angels. Bilateral Shoulder Abduction. Supine. 3x10. - Assessment Assessment of Improvement Increased understanding of available AE that will support maintenance of functional independence; this is evidenced by Crystal meeting short term goal in this area and Crystal's ability to identify AE verbally that she believes will help her in day- to-day life. Condensed/ upgraded home exercise program ; reviewed in treatment session. Initiated new UE strengthening exercises. Recommended scheduling of additional visits. Home Exercise Program Please refer to treatment section of note for specific details. - Plan Therapy Recommendations Continue with Current Program, Advance per Rehabilitation Protocol
--- NOTE | 2020-06-06 12:13 | OT.OP.TRT ---
Visit Care Team Role Provider Type Helen Burroughs MD Attending Provider Physician Family Provider Primary Care Provider Referring Provider Specialty: Internal Medicine Address: [address] [place] [address], [id number] Email: [email or web address] Occupational Therapy Treatment Note OT Outpatient Treatment Note - Adult Start: 05/02/20 07:27 Freq: Status: Active Protocol: Document 06/06/20 11:44 AMS (Rec: 06/06/20 12:12 AMS [email or web address]) OT Outpatient Adult Treatment Note Session Time Visit Start Time 08:30 Visit Stop Time 09:15 Total Visit Minutes 45 Visit Information Visit Number 12/15 Plan of Care Dates 05/02/20-06/27/20 Insurance Information Medicare Setting Treatment Setting Outpatient Care Visit Type Note Type Treatment Note General Information General Information Patient is a 74 year-old left hand dominant female referred to outpatient OT by PCP secondary to diagnosis of Parkinson's disease. PMH: Medical History form completed and placed in paper chart. - Subjective Identification Type Name Identification Reconciled With Medical Record Observations I want to hold onto my independence per Crystal. - Objective Objective Measurements Please refer to below for progress towards meeting established OT goals. Short Term Goals 1. 0-110 degrees active left shoulder abd ROM. 05/16/20 = 25 % met 2. 0-50 degrees active left shoulder ER. 05/16/20 = 25% met 3. 4/5 MMT left shoulder extension. 05/16/20 = 25% met 4. 4/5 MMT left shoulder abduction. 05/16/20 = 25% met 5. 4/5 MMT left shoulder ER. 05/16/20 = 25% met Web Marketing Specialist Goals 1. Crystal will be modified independent w/ execution of home exercise program utilizing provided written and visual instructions from therapist. 05/30/20= 25% met GOALS MET Crystal will be able to identify at least 2 different pieces of adaptive equipment that will support her functional independence with active participation in meaningful activities (e.g., ADLs, such as feeding, dressing). *MET - Treatment 2 Descriptor Manual therapy/passive range of motion to address tightness of anterior chest and encourage L shoulder ROM. 1 Descriptor HEP/POC/Education. Discussed following PT recommendations re: mobility AE. Exercises 7 Descriptor Posture. Scapular row. Standing. TB #1. 2x15 repetitions. 6 Descriptor Bilateral UE exercises. Sh abd. Sidelying. 1# DB. 3x15 repetitions. 5 Descriptor L sh strengthening ER sidelying. 1# DB. 3x15 repetitions. Posterior deltoid sidelying. 1 # DB. 3x15 repetitions. 4 Descriptor Thumb ROM/Education. CMC ROM 1x10. Self manual mobilization ; thumb adductor release. D1 2x10. 3 Descriptor UEB. x 5 minutes. 2 Descriptor ROM. 'T' stretch supine. 2 x 20 sec . Football stretch supine. 2 x 20 sec. Crocodile/UB and LB dissociation. 2 x 20 sec. Wall stretch. Child pose. [place] morris. 2 x 20 sec. Upper trap. L/R. 2 x 20 sec. Neck ext. 2 x 20 sec. Rhomboids. Bilateral. 1 x 20 sec each. 1 Descriptor ROM. Cane. Bilateral Shoulder Flexion. Supine. 3x10. Snow angels. Bilateral Shoulder Abduction. Supine. 3x10. - Assessment Assessment of Improvement Upgraded UE therapeutic exercises on this treatment date. Arrived to treatment session without mobility AE; patient verbalized desire to maintain her functional independence. Encouraged following PT outpatient recommendations given fall risk. Recommend advanced UE exercises/stretches as tolerated. Home Exercise Program Please refer to treatment section of note for specific details. - Plan Therapy Recommendations Continue with Current Program, Advance per Rehabilitation Protocol
--- NOTE | 2020-06-13 11:45 | OT.OP.TRT ---
Visit Care Team Role Provider Type Helen Burroughs MD Attending Provider Physician Family Provider Primary Care Provider Referring Provider Specialty: Internal Medicine Address: [address] [place] [address], [id number] Email: [email or web address] Occupational Therapy Treatment Note OT Outpatient Treatment Note - Adult Start: 05/02/20 07:27 Freq: Status: Active Protocol: Document 06/13/20 11:33 AMS (Rec: 06/13/20 11:45 AMS [id number]) OT Outpatient Adult Treatment Note Session Time Visit Start Time 08:30 Visit Stop Time 09:15 Total Visit Minutes 45 Visit Information Visit Number 01/14 Plan of Care Dates 05/02/20-06/27/20 Insurance Information Medicare Setting Treatment Setting Outpatient Care Visit Type Note Type Treatment Note General Information General Information Patient is a 74 year-old left hand dominant female referred to outpatient OT by PCP secondary to diagnosis of Parkinson's disease. PMH: Medical History form completed and placed in paper chart. - Subjective Identification Type Name Identification Reconciled With Medical Record Observations I had one of my shoulders worked on about 7 years ago per Crystal. Did you give me a copy of the exercises? per Crystal. - Objective Objective Measurements Please refer to below for progress towards meeting established OT goals. Short Term Goals 1. 0-110 degrees active left shoulder abd ROM. 05/16/20 = 25 % met 2. 4/5 MMT left shoulder extension. 05/16/20 = 25% met 3. 4/5 MMT left shoulder abduction. 05/16/20 = 25% met 4. 4/5 MMT left shoulder ER. 05/16/20 = 25% met GOALS MET 0-50 degrees active left shoulder ER. *MET 06/13/20. 0- 60 degrees L sh ER Roofing Superintendent Goals 1. Crystal will be modified independent w/ execution of home exercise program utilizing provided written and visual instructions from therapist. 06/13/20= 25% met GOALS MET Crystal will be able to identify at least 2 different pieces of adaptive equipment that will support her functional independence with active participation in meaningful activities (e.g., ADLs, such as feeding, dressing). *MET - Treatment 2 Descriptor Manual therapy/passive range of motion to address tightness of anterior chest and encourage L shoulder ROM. 1 Descriptor HEP/POC/Education. Discussed scheduling of additional outpatient PT appointments; encouraged Crystal to have her call and speak to outpatient title insurance sales representative re: any insurance concerns. Reviewed importance of completing home exercises ( ROM) stretches prior to execution of BIG exercises. Exercises 7 Descriptor Posture. Scapular row. Standing. TB #1. 2x15 repetitions. 6 Descriptor Bilateral UE exercises. Sh abd. Sidelying. 1# DB. 3x15 repetitions. 5 Descriptor L sh strengthening ER sidelying. 2# DB. 2x15 repetitions. 1# DB. 1x15 repetitions. Posterior deltoid sidelying. 1 # DB. 3x15 repetitions. Hor abd and ER supine. 2# DB. 2x15 repetitions. 1# DB. 1x15 repetitions. 3 Descriptor UEB. x 10 minutes. 2 Descriptor ROM. 'T' stretch supine. 2 x 20 sec . Football stretch supine. 2 x 20 sec. Crocodile/UB and LB dissociation. 2 x 20 sec. Wall stretch. Pec stretch. 2 x 30 sec. Upper trap. L/R. 2 x 20 sec. Neck ext. 2 x 20 sec. Rhomboids. Bilateral. 1 x 20 sec each. 1 Descriptor ROM. Cane. Bilateral Shoulder Flexion. Supine. 3x10. Shoulder Abduction. Supine. 3x10. 'Y'. - Assessment Assessment of Improvement Arrived to treatment session with 4WW. Decreased carry-over of home recommendations relative to UE stretches. Improving active ER noted on this date; met short term goal in this area. Improving L sh abd; further improvement in L sh abd noted s/p exercises. Focus on education and support of carry-over. Recommend simplifying HEP with focus on a couple of shoulder ROM stretches to support carry- over pre-execution of BIG program work. Concern re: Medicare coverage of PT appointments; encouraged scheduling for the future and having call and speak to title insurance sales representative if any additional concerns present. Home Exercise Program Please refer to treatment section of note for specific details. - Plan Therapy Recommendations Continue with Current Program, Advance per Rehabilitation Protocol
--- NOTE | 2020-06-20 09:26 | OT.OP.TRT ---
Visit Care Team Role Provider Type Helen Burroughs MD Attending Provider Physician Family Provider Primary Care Provider Referring Provider Specialty: Internal Medicine Address: [address] [place] [address], [id number] Email: [email or web address] Occupational Therapy Treatment Note OT Outpatient Treatment Note - Adult Start: 05/02/20 07:27 Freq: Status: Active Protocol: Document 06/20/20 09:20 [facility] (Rec: 06/20/20 09:26 AMS [id number]) OT Outpatient Adult Treatment Note Session Time Visit Start Time 08:30 Visit Stop Time 09:15 Total Visit Minutes 45 Visit Information Visit Number 02/14 Plan of Care Dates 05/02/20-06/27/20 Insurance Information Medicare Setting Treatment Setting Outpatient Care Visit Type Note Type Treatment Note General Information General Information Patient is a 74 year-old left hand dominant female referred to outpatient OT by PCP secondary to diagnosis of Parkinson's disease. PMH: Medical History form completed and placed in paper chart. - Subjective Identification Type Name Identification Reconciled With Medical Record Observations I fell down the stairs the other day. I was reaching for something that I shouldn't have. My bought me another walker just like this one for downstairs per Crystal. - Objective Objective Measurements Please refer to below for progress towards meeting established OT goals. Short Term Goals 1. 0-110 degrees active left shoulder abd ROM. 05/16/20 = 25 % met 2. 4/5 MMT left shoulder extension. 05/16/20 = 25% met 3. 4/5 MMT left shoulder abduction. 05/16/20 = 25% met 4. 4/5 MMT left shoulder ER. 05/16/20 = 25% met GOALS MET 0-50 degrees active left shoulder ER. *MET 06/13/20. 0- 60 degrees L sh ER Halfway Goals 1. Crystal will be modified independent w/ execution of home exercise program utilizing provided written and visual instructions from therapist. 06/20/20= 25% met GOALS MET Crystal will be able to identify at least 2 different pieces of adaptive equipment that will support her functional independence with active participation in meaningful activities (e.g., ADLs, such as feeding, dressing). *MET - Treatment 2 Descriptor Manual therapy/passive range of motion to address tightness of anterior chest and encourage L shoulder ROM. 1 Descriptor HEP/POC/Education. Reviewed importance of completing home exercises (ROM) stretches prior to execution of BIG exercises. Exercises 7 Descriptor Bilateral sh extension with cane. Supine. TB #1. 3 x 15 repetitions. 6 Descriptor Bilateral UE exercises. Sh abd. Sidelying. 1# DB. 3x15 repetitions. 5 Descriptor L sh strengthening ER sidelying. 2# DB. 3x15 repetitions. Posterior deltoid sidelying. 1 # DB. 3x15 repetitions. Hor abd and ER supine. 2# DB. 3x15 repetitions. 3 Descriptor UEB. x 10 minutes. 2 Descriptor ROM. 'T' stretch supine. 2 x 20 sec . Football stretch supine. 2 x 20 sec. Crocodile/UB and LB dissociation. 2 x 20 sec. Wall stretch. Pec stretch. 2 x 30 sec. Upper trap. L/R. 2 x 20 sec. Neck ext. 2 x 20 sec. Rhomboids. Bilateral. 1 x 20 sec each. 1 Descriptor ROM. Cane. Bilateral Shoulder Flexion. Supine. 3x10. Shoulder Abduction. Supine. 3x10. 'Y'. - Assessment Assessment of Improvement Arrived to treatment session with 4WW. Report of recent fall down stairs w/ denial of injury secondary to reaching ' for something [she] shouldn't have'. Fall x 10 stairs within the home. Report of investing in second 4WW for the home for separate floor of house. Decreased carry-over of home recommendations relative to UE stretches. Focus on education and support of carry-over. Recommend simplifying HEP with focus on a couple of shoulder ROM stretches to support carry- over pre-execution of BIG program work. Upgraded therapeutic exercises, including strengthening exercises. Will need to assess progress at time of next treatment session. Home Exercise Program Please refer to treatment section of note for specific details. - Plan Therapy Recommendations Continue with Current Program, Advance per Rehabilitation Protocol
--- NOTE | 2020-06-27 10:31 | OT.OPPN ---
Current Diagnoses Parkinson's disease (06/27/20) Dysphagia, unspecified (06/27/20) Other lack of coordination (06/27/20) Repeated falls (06/27/20) Occupational Therapy Inpatient Evaluation/Re-Eval OT Outpatient Adult Evaluation Start: 05/02/20 07:27 Freq: Status: Active Protocol: Document 05/02/20 08:30 AMS (Rec: 05/02/20 07:44 AMS [id number]) General Information Session Time Visit Start Time 07:30 Visit Stop Time 08:18 Total Visit Minutes 48 Visit Information Visit Number 07/17 Plan of Care Dates 05/02/20-06/27/20 Insurance Information Medicare Setting Treatment Setting Outpatient Care Visit Type Note Type Initial Evaluation Goals Treatment Treatment Adaptive equipment education. Custodial Goals Custodial Goals 1. Crystal will be modified independent w/ execution of home exercise program utilizing provided written and visual instructions from therapist. 2. Crystal will be able to identify at least 2 different pieces of adaptive equipment that will support her functional independence with active participation in meaningful activities (e.g., ADLs, such as feeding, dressing). Assessment/Plan Assessment Treatment Assessment Patient is a 74 year-old left hand dominant female referred to outpatient OT by PCP secondary to diagnosis of Parkinson's disease. PMH: Medical History form completed and placed in paper chart. Evaluation findings: Crystal presents w/ bilateral hand cramping L > R. She cuts and lifts heavy items w/ her right hand. 4 out of 10 indicated on the Pain Assessment Grid relative to her left shoulder and left knee and hand(s). Crystal has been evaluated by speech therapist and will be evaluated by PT on Saturday. Meaningful activities: Denied difficulties w/ g/h tasks. Difficulties w/ managing buttons and snaps; thus, has adjusted wardrobe accordingly. Difficulties w/ management of distal LB dressing; however, she denied diff w/ socks and is wearing shoes w/ shoe laces and was observed to tie shoes without assistance or request for assistance. d/t difficulties w/ donning pants = likely diff w/ lower body undergarment managment. 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 Cont use of bra w/ posterior clasping w/ reported difficulties w/ clasping. Education provided re: front clasping bra and/or clasping prior to donning upper body undergarment as a shirt/ sportsbra. Receives pedicure to care for feet, including managing toe nail length(s). Difficulties w/ clipping fingernails; unable to use traditional nail clippers however, uses file as a compensatory strategy. Crystal has difficulty w/ zippers; she reports increased success w/ no visual fixation when completing. Crystal is able to don watch L wrist without difficulty; denies wearing jewelry secondary to difficulties w/ clasps. Crystal has trouble managing foods w/ self-feeding; reports getting mat dirty frequently and not going out to eat w/ her . Recommended use of rocker knife, weighted utensils, built-up utensils, as well as lip plate to support scooping. Impaired fine motor coordination; reported reduction in clarity of handwriting/decreased accuracy w/ placement of signature on single line. Observations were w/ use of standard width writing utensil . Visual impairment noted; use of phone w/ increased font size. Difficulty reported w/ looking down (as noted w/ zipper management) looking to the left body of space and looking up in visual field. Difficulty w/ managing personal calendar; manages calendar on phone. Use of left second digit for managing phone tabs/et cetera. 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 Averages obtained from 3 trials on dynamometer. Outpatient OT is recommended to address these areas in order to maximize Crystal's success/functional independence w/ active participation in meaningful activities. Plan Comment 8 weeks Treatment Frequency Once a Week Therapeutic Contents Active Range of Motion, Adaptive Equipment Education, Client Education,Cognitive Skills Development,Functional Activities,Home Exercise Program,Joint Protection, Education,Neurodevelopment Treatment,Neuromuscular Re- Education,Self-Care,Stretching /Flexibility Activities, Therapeutic Activities, Therapeutic Exercises Patient Instruction Home Exercise Program,Plan of Care,Questions/Concerns Sensory Assessment Sensory Profile2 Functional Wrist/Hand Scan Hand Side OT Outpatient Treatment Note - Adult Start: 05/02/20 07:27 Freq: Status: Active Protocol: Document 06/27/20 10:19 AMS (Rec: 06/27/20 10:31 AMS [id number]) OT Outpatient Adult Treatment Note Session Time Visit Start Time 08:30 Visit Stop Time 09:15 Total Visit Minutes 45 Visit Information Visit Number 1/10 Plan of Care Dates 06/27/20-09/19/20 Insurance Information Medicare Setting Treatment Setting Outpatient Care Visit Type Note Type Progress Note General Information General Information Patient is a 74 year-old left hand dominant female referred to outpatient OT by PCP secondary to diagnosis of Parkinson's disease. PMH: Medical History form completed and placed in paper chart. - Subjective Identification Type Name Identification Reconciled With Medical Record Observations I am using my walker at home. This shoulder and this thumb are sore per Crystal. - Objective Objective Measurements Please refer to below for progress towards meeting established OT goals. Short Term Goals 1. 4+/5 MMT left shoulder extension. 06/27/20 = GOAL UPGRADED 2. 4+/5 MMT left shoulder abduction. 06/27/20 = GOAL UPGRADED 3. 4+/5 MMT left shoulder ER. 06/27/20= GOAL UPGRADED GOALS MET 0-50 degrees active left shoulder ER. *MET 06/13/20. 0- 60 degrees L sh ER 0-110 degrees active left shoulder abd ROM. MET 06/27/20 ; 0-110 degrees Lan Analyst Goals 1. Crystal will be modified independent w/ execution of home exercise program utilizing provided written and visual instructions from therapist. 06/27/20= 25% met GOALS MET Crystal will be able to identify at least 2 different pieces of adaptive equipment that will support her functional independence with active participation in meaningful activities (e.g., ADLs, such as feeding, dressing). *MET - Treatment 2 Descriptor Manual therapy/passive range of motion to address tightness of anterior chest and encourage L shoulder ROM. 1 Descriptor HEP/POC/Education. Reviewed importance of completing home exercises (ROM) stretches prior to execution of BIG exercises. Exercises 7 Descriptor Bilateral sh extension with cane. Supine. TB #2. 3 x 15 repetitions. 6 Descriptor Bilateral UE exercises. Sh abd. Sidelying. 1# DB. 3x15 repetitions. 5 Descriptor L sh strengthening ER sidelying. 2# DB. 3x15 repetitions. Posterior deltoid sidelying. 1 # DB. 3x15 repetitions. Hor abd and ER supine. 2# DB. 3x15 repetitions. 3 Descriptor UEB. x 10 minutes. 2 Descriptor ROM. 'T' stretch supine. 2 x 20 sec . Football stretch supine. 2 x 20 sec. Crocodile/UB and LB dissociation. 2 x 20 sec. Wall stretch. Pec stretch. 2 x 30 sec. Upper trap. L/R. 2 x 20 sec. Neck ext. 2 x 20 sec. Rhomboids. Bilateral. 1 x 20 sec each. 1 Descriptor ROM. Cane. Bilateral Shoulder Flexion. Supine. 3x10. Shoulder Abduction. Supine. 3x10. 'Y'. - Assessment Assessment of Improvement Crystal has made progress over the last certification period relative to AE awareness, L UE AROM, and L UE strength. This is evidenced by objective measures and Crystal meeting goals in these areas. Thus, continued outpatient OT is recommended to address carry- over of HEP pre-BIG program relative to ROM to improve/ maintenance/or minimalization of regression w/ transition, and to determine if further progress relative to UE strength can be made. Crystal has verbalized a desire to maintain functional independence w/ ADLS (relative to feeding, dressing, et cetera). She has had several falls over this certification period and is likely to resume outpatient PT services in the new year. Crystal is also receiving outpatient HOSPITAL RECRUITER. Safety awareness is being supported by all disciplines. Home Exercise Program Please refer to treatment section of note for specific details. - Plan Comment 12 weeks Frequency of Treatment Once a Week Therapeutic Contents Active Range of Motion, Adaptive Equipment Education, Client Education,Cognitive Skills Development,Functional Activities,Home Exercise Program,Joint Protection, Manual Therapy,Education, Neurodevelopment Treatment, Neuromuscular Re-Education, Self-Care,Stretching/ Flexibility Activities, Therapeutic Activities, Therapeutic Exercises
--- NOTE | 2020-07-04 09:19 | OT.OP.TRT ---
Visit Care Team Role Provider Type Helen Burroughs MD Attending Provider Physician Family Provider Primary Care Provider Referring Provider Specialty: Internal Medicine Address: [address] [place] [address], [phone] Email: [email or web address] Occupational Therapy Treatment Note OT Outpatient Treatment Note - Adult Start: 05/02/20 07:27 Freq: Status: Active Protocol: Document 07/04/20 09:13 AMS (Rec: 07/04/20 09:19 AMS [id number]) OT Outpatient Adult Treatment Note Session Time Visit Start Time 08:30 Visit Stop Time 09:15 Total Visit Minutes 45 Visit Information Visit Number 08/17 Plan of Care Dates 06/27/20-09/19/20 Insurance Information Medicare Setting Treatment Setting Outpatient Care Visit Type Note Type Treatment Note General Information General Information Patient is a 74 year-old left hand dominant female referred to outpatient OT by PCP secondary to diagnosis of Parkinson's disease. PMH: Medical History form completed and placed in paper chart. - Subjective Identification Type Name Identification Reconciled With Medical Record Observations Yes I have been doing my stretches per Crystal prior to execution of BIG program. Crystal denied any recent falls. I got a payroll accounting specialist and weighted utensils. I still really want the plate to help with eating salads. - Objective Objective Measurements Please refer to below for progress towards meeting established OT goals. Short Term Goals 1. 4+/5 MMT left shoulder extension. 06/27/20 = GOAL UPGRADED 2. 4+/5 MMT left shoulder abduction. 06/27/20 = GOAL UPGRADED 3. 4+/5 MMT left shoulder ER. 06/27/20= GOAL UPGRADED GOALS MET 0-50 degrees active left shoulder ER. *MET 06/13/20. 0- 60 degrees L sh ER 0-110 degrees active left shoulder abd ROM. MET 06/27/20 ; 0-110 degrees Mainframe Analyst Goals 1. Crystal will be modified independent w/ execution of home exercise program utilizing provided written and visual instructions from therapist. 06/27/20= 25% met GOALS MET Crystal will be able to identify at least 2 different pieces of adaptive equipment that will support her functional independence with active participation in meaningful activities (e.g., ADLs, such as feeding, dressing). *MET - Treatment 2 Descriptor Manual therapy/passive range of motion to address tightness of anterior chest and encourage L shoulder ROM. 1 Descriptor HEP/POC/Education. Reviewed importance of completing home exercises (ROM) stretches prior to execution of BIG exercises. Exercises 7 Descriptor Bilateral sh extension with cane. Supine. TB #2. 3 x 15 repetitions. 6 Descriptor Bilateral UE exercises. Sh abd. Sidelying. 1# DB. 3x15 repetitions. 5 Descriptor L sh strengthening ER sidelying. 2# DB. 3x15 repetitions. Posterior deltoid sidelying. 1 # DB. 3x15 repetitions. Hor abd and ER supine. 2# DB. 3x15 repetitions. 3 Descriptor UEB. x 10 minutes. 2 Descriptor ROM. 'T' stretch supine. 2 x 20 sec . Football stretch supine. 2 x 20 sec. Crocodile/UB and LB dissociation. 2 x 20 sec. Neck ext. 2 x 20 sec. Rhomboids. Bilateral. 1 x 20 sec each. 1 Descriptor ROM. Cane. Bilateral Shoulder Flexion. Supine. 3x10. Shoulder Abduction. Supine. 3x10. 'Y'. - Assessment Assessment of Improvement Upgraded ther exercises/ activities. Improved carry- over of HEP per patient self- report; performing ROM prior to BIG exercises and utilizing payroll accounting specialist and weighted utensils . Inconsistent w/ locking of brakes of 4WW prior to transfer to seated surface. Safety awareness is being supported by all disciplines. Home Exercise Program Please refer to treatment section of note for specific details. - Plan Therapy Recommendations Continue with Current Program, Advance per Rehabilitation Protocol
--- NOTE | 2020-07-25 16:42 | OT.OP.DC ---
Visit Care Team Role Provider Type Helen Burroughs MD Attending Provider Physician Family Provider Primary Care Provider Referring Provider Address: [address] [place] [address], [id number] Email: [email or web address] Adult Evaluation Start: 05/02/20 07:27 Freq: Status: Active Protocol: Document 05/02/20 08:30 AMS (Rec: 05/02/20 07:44 AMS [id number]) General Information Session Time Visit Start Time 07:30 Visit Stop Time 08:18 Total Visit Minutes 48 Visit Information Visit Number 07/17 Plan of Care Dates 05/02/20-06/27/20 Insurance Information Medicare Setting Treatment Setting Outpatient Care Visit Type Note Type Initial Evaluation Goals Treatment Treatment Adaptive equipment education. Marketing Support Specialist Goals Care Home Goals 1. Crystal will be modified independent w/ execution of home exercise program utilizing provided written and visual instructions from therapist. 2. Crystal will be able to identify at least 2 different pieces of adaptive equipment that will support her functional independence with active participation in meaningful activities (e.g., ADLs, such as feeding, dressing). Assessment/Plan Assessment Treatment Assessment Patient is a 74 year-old left hand dominant female referred to outpatient OT by PCP secondary to diagnosis of Parkinson's disease. PMH: Medical History form completed and placed in paper chart. Evaluation findings: Crystal presents w/ bilateral hand cramping L > R. She cuts and lifts heavy items w/ her right hand. 4 out of 10 indicated on the Pain Assessment Grid relative to her left shoulder and left knee and hand(s). Crystal has been evaluated by speech therapist and will be evaluated by PT on Saturday. Meaningful activities: Denied difficulties w/ g/h tasks. Difficulties w/ managing buttons and snaps; thus, has adjusted wardrobe accordingly. Difficulties w/ management of distal LB dressing; however, she denied diff w/ socks and is wearing shoes w/ shoe laces and was observed to tie shoes without assistance or request for assistance. d/t difficulties w/ donning pants = likely diff w/ lower body undergarment managment. 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 Cont use of bra w/ posterior clasping w/ reported difficulties w/ clasping. Education provided re: front clasping bra and/or clasping prior to donning upper body undergarment as a shirt/ sportsbra. Receives pedicure to care for feet, including managing toe nail length(s). Difficulties w/ clipping fingernails; unable to use traditional nail clippers however, uses file as a compensatory strategy. Crystal has difficulty w/ zippers; she reports increased success w/ no visual fixation when completing. Crystal is able to don watch L wrist without difficulty; denies wearing jewelry secondary to difficulties w/ clasps. Crystal has trouble managing foods w/ self-feeding; reports getting mat dirty frequently and not going out to eat w/ her . Recommended use of rocker knife, weighted utensils, built-up utensils, as well as lip plate to support scooping. Impaired fine motor coordination; reported reduction in clarity of handwriting/decreased accuracy w/ placement of signature on single line. Observations were w/ use of standard width writing utensil . Visual impairment noted; use of phone w/ increased font size. Difficulty reported w/ looking down (as noted w/ zipper management) looking to the left body of space and looking up in visual field. Difficulty w/ managing personal calendar; manages calendar on phone. Use of left second digit for managing phone tabs/et cetera. Decreased hand/transportation officer strength; avg 21.7# avg R hand 29.0# avg L transportation officer. Averages obtained from 3 trials on dynamometer. Outpatient OT is recommended to address these areas in order to maximize Crystal's success/functional independence w/ active participation in meaningful activities. Plan Comment 8 weeks Treatment Frequency Once a Week Therapeutic Contents Active Range of Motion, Adaptive Equipment Education, Client Education,Cognitive Skills Development,Functional Activities,Home Exercise Program,Joint Protection, Education,Neurodevelopment Treatment,Neuromuscular Re- Education,Self-Care,Stretching /Flexibility Activities, Therapeutic Activities, Therapeutic Exercises Patient Instruction Home Exercise Program,Plan of Care,Questions/Concerns Sensory Assessment Sensory Profile2 Functional Wrist/Hand Scan Hand Side OT Outpatient Muscle Testing Start: 05/20/20 14:56 Freq: Status: Active Protocol: Document 07/25/20 16:18 AMS (Rec: 07/25/20 16:41 AMS [id number]) Shoulder Strength Shoulder Manual Muscle Testing Left Flexion 4+ Good+ Extension 4+ Good+ Abduction (C5) 4+ Good+ Adduction 4+ Good+ External Rotation 4+ Good+ Internal Rotation 5 Normal Horizontal Abduction 4 Good Horizontal Adduction 4+ Good+ Right Flexion 4+ Good+ Extension 4+ Good+ Abduction (C5) 4+ Good+ Adduction 4+ Good+ External Rotation 4+ Good+ Internal Rotation 5 Normal Horizontal Abduction 4+ Good+ Horizontal Adduction 4+ Good+ Elbow/Forearm Strength Elbow and Forearm Manual Muscle Testing Right Flexion (C6) 4+ Good+ Extension (C7) 4 Good Left Flexion (C6) 4+ Good+ Extension (C7) 4 Good OT Outpatient Range of Motion Start: 05/20/20 14:56 Freq: Status: Active Protocol: Document 07/25/20 16:18 AMS (Rec: 07/25/20 16:41 [facility] [id number]) ROM - Shoulder Shoulder Left Forearm ROM Testing Position Sitting Shoulder Flex AROM (degrees) 125 Query Text: Shoulder Ext AROM (degrees) 60 Shoulder Abd AROM (degrees) 110 Shoulder IR AROM (degrees) WFL Shoulder ER AROM (degrees) 60 Right Forearm ROM Testing Position Sitting Shoulder Flex AROM (degrees) 125 Query Text: Shoulder Ext AROM (degrees) 50 Shoulder Abd AROM (degrees) 120 Shoulder IR AROM (degrees) WFL Shoulder ER AROM (degrees) 58 ROM - Elbow/Forearm Elbow/Forearm Measured in Degrees Left Elbow/Forearm ROM WFL Yes Right Elbow/Forearm ROM WFL Yes OT Outpatient Treatment Note - Adult Start: 05/02/20 07:27 Freq: Status: Active Protocol: Document 07/25/20 16:18 AMS (Rec: 07/25/20 16:41 [facility] [id number]) OT Outpatient Adult Treatment Note Session Time Visit Start Time 09:30 Visit Stop Time 10:15 Total Visit Minutes 45 Visit Information Visit Number 09/14 Plan of Care Dates 06/27/20-09/19/20 Insurance Information Medicare Setting Treatment Setting Outpatient Care Visit Type Note Type Treatment Note General Information General Information Patient is a 74 year-old left hand dominant female referred to outpatient OT by PCP secondary to diagnosis of Parkinson's disease. PMH: Medical History form completed and placed in paper chart. - Subjective Identification Type Name Identification Reconciled With Medical Record Observations My is doing the cooking and grocery shopping. We have a cleaning lady that comes once a month and I do the cleaning in between. I make the bed and vacuum. I also do the laundry. I have a hard time getting the clothes out of the dryer. I reach and then have to reach some more. I some times get down onto the floor and reach into the dryer. Yes, I use my walker to move the laundry basket. I have a grab bar I use for bathing. I do have difficulty getting into and out of the car. I have to remember to back up. I have a hard time getting into and out of my bed because I think it is so soft . I think it is time we need to get a new bed per Crystal. I am doing the exercises and I think I am ready for a break per . In my garden, I will trim the bushes, weed, plant and transplant plants. I usually get down to do the weeding. - Objective Objective Measurements Please refer to below for progress towards meeting established OT goals. Short Term Goals GOALS MET 0-50 degrees active left shoulder ER. *MET 06/13/20. 0- 60 degrees L sh ER 0-110 degrees active left shoulder abd ROM. MET 06/27/20 ; 0-110 degrees 4+/5 MMT left shoulder ER. * MET 07/25/20 4+/5 MMT left shoulder abduction. *MET 07/25/20 4+/5 MMT left shoulder extension. *MET 07/25/20 Marketing Support Specialist Goals GOALS MET Crystal will be able to identify at least 2 different pieces of adaptive equipment that will support her functional independence with active participation in meaningful activities (e.g., ADLs, such as feeding, dressing). *MET Crystal will be modified independent w/ execution of home exercise program utilizing provided written and visual instructions from therapist. *MET 07/25/20 - Treatment 2 Descriptor Manual therapy/passive range of motion to address tightness of anterior chest and encourage L shoulder ROM. 1 Descriptor HEP/POC/Education. Reviewed home exercises. All questions were answered. Exercises 7 Descriptor Bilateral sh extension with cane. Supine. TB #2. 3 x 15 repetitions. 6 Descriptor Bilateral UE exercises. Sh abd. Sidelying. 1# DB. 3x15 repetitions. 5 Descriptor L sh strengthening ER sidelying. 2# DB. 3x15 repetitions. Posterior deltoid sidelying. 1 # DB. 3x15 repetitions. Hor abd and ER supine. 2# DB. 3x15 repetitions. 3 Descriptor UEB. Seated. x 8 minutes. 2 Descriptor ROM. 'T' stretch supine. 2 x 20 sec . Football stretch supine. 2 x 20 sec. Crocodile/UB and LB dissociation. 2 x 20 sec. Neck ext. 2 x 20 sec. Rhomboids. Bilateral. 1 x 20 sec each. 1 Descriptor ROM. Cane. Bilateral Shoulder Flexion. Supine. 3x10. Shoulder Abduction. Supine. 3x10. 'Y'. - Assessment Assessment of Improvement Crystal denied any recent falls. Crystal has met all short term and termite control service representative goals for outpatient OT, including identification of AE that may support her functional independence in self- identified areas. Based on self-report, Crystal is modified independent with upper extremity home exercise program utilizing provided written instructions. She was able to demonstrate 2 different pec stretches in supine without visual or written reference. Crystal is currently being seen by outpatient PT and FIRING PIN GAUGER and prior to today's appointment she had not been seen since . Therapist discussed continued treatment versus discharge to home exercise program w/ Crystal. Crystal denied any other functional areas that she needs assistance with at this time/continued need to address shoulder complaints . Based on progress and patient feedback, recommend d/ c from OT and therapist to follow-up as deemed appropriate by PCP. It is important to note that therapist did consult w/ PT given Crystal's history of falls /fall risk re: additional functional areas that were discussed in today's treatment session. Therapist also notified FIRING PIN GAUGER of d/c. Home Exercise Program Please refer to treatment section of note for specific details. - Plan Therapy Recommendations Discharge from Occupational Therapy
== END 2020-07-28 08:33 | disposition home or self-care (01) ==
LOC: OT 09:30
PROVIDERS: Family Provider Internal Medicine; PCP Internal Medicine; Referring Provider Internal Medicine; Visit Provider Internal Medicine
DX: G20 Parkinson's disease (principal); R27.8 Other lack of coordination; R29.6 Repeated falls; R13.10 Dysphagia, unspecified
CPT/HCPCS: 97110; 97140; 97165; 97530; 97535

== ENCOUNTER 2020-08-27 17:01 | Emergency (ER) | payer MEDICARE, OTHER, SELFPAY ==
[2020-08-27 17:12] VITALS: BP 172/79; PULSE 86; RESP 16; TEMP 36.3; O2SAT 97; BMI 20.5
--- NOTE | 2020-08-27 17:15 | DI.RAD.S_ITS ---
PROCEDURE: XR SHOULDER RT MIN 2V INDICATIONS: fall TECHNIQUE: 4 views of the shoulder were acquired. COMPARISON: None. FINDINGS: Bones: There is a moderately displaced fracture of the clavicle, with overlapping fragments of approximately 1.7 cm. No additional acute fractures are seen. No shoulder dislocation. There is a remote appearing right posterior 9th rib fracture. Age-appropriate bony degenerative changes are seen. Soft tissues: No suspicious soft tissue calcifications. The visualized lung demonstrates an unremarkable appearance. IMPRESSION: Right clavicle fracture. Dictated by: David Torres M.D. on 08/27/2020 at 16:54 Approved by: David Torres M.D. on 08/27/2020 at 16:55
--- NOTE | 2020-08-27 18:05 | ED_ITS ---
HPI - Fall General Chief Complaint: Fall Stated Complaint: Fall, Right Shoulder Pain,Hx Parkinson's Time Seen by Provider: 08/27/20 18:05 Source: patient and family () Limitations: no limitations History of Present Illness HPI Narrative: 74-year-old female comes emergency department with complaint ground level fall. Patient states she was trying to make sure her door was completely open and as she was leaning against it she states secondary to her Parkinson's she fell. She denies hitting her head. She denies any other injuries besides her right shoulder/clavicle area. Patient states that she does not have pain elsewhere other than some mild pain on the right lateral neck. Patient denies any other neck, back or hip pain. She states she was able to get herself up off the floor and walk to the front door. She has some tingling in her toes after sitting in the ER gurney for prolonged period but denies any other symptoms. No loss of consciousness, no dizziness, no chest pain, no shortness of breath, no vision changes, no nausea or vomiting. No other numbness, tingling or weakness is appreciated to the patient. Patient denies any other current issues. She does have a history of Parkinson's she takes levodopa daily and is due for her 2nd dose shortly. She denies any thinners or anticoagulants. She lives with her and normally walks unassisted. Helen Burroughs is her PCP. Related Data Home Medications Medication Instructions Recorded Confirmed Turmeric 1 cap PO 2XW 01/14/19 07/13/19 lysine 500 mg capsule 1,000 mg PO 3XW cap 01/14/19 07/13/19 Calcium See Rx Instructions .ROUTE .COMPLEX 02/16/19 07/13/19 Vitamin B-12 See Rx Instructions .ROUTE .COMPLEX 02/16/19 07/13/19 vitamin B complex 1 tab PO DAILY 02/16/19 07/13/19 Previous Rx's Medication Instructions Recorded alendronate 70 mg tablet 70 mg PO QWEEK #12 tab 03/27/19 vitamin D 1,000 unit PO DAILY #30 tab 06/02/19 hydrocodone-acetaminophen [[place]] 1 tab PO Q6H PRN #14 tab 08/27/20 Allergies Allergy/AdvReac Type Severity Reaction Status Date / Time No Known Drug Allergies Allergy Verified 07/13/19 11:39 Review of Systems Review of Systems ROS Unobtainable: All systems reviewed & are unremarkable except as noted in HPI and below Patient History Medical History Arthritis Chickenpox (~1958) History of recurrent ear infection Hx of fracture of wrist (~11/2012) Hyperlipemia Measles Osteopenia (1990) Ovarian cyst (1977) Peptic ulcer disease (1987) Surgical History History of breast augmentation (2002) Hx of thumb surgery (2003) Status post breast lumpectomy Family History (Updated 03/06/18 @ 10:50 by Awilda Marie LPN) Mother Alcoholism Father Cancer Sister Breast cancer Sister No problems noted. Social History household members: spouse Smoking Status: Never smoker second hand exposure: No alcohol intake: current (a glass of wine occasionally. ) substance use type: does not use Smoking Status: Never smoker Exam Narrative Exam Narrative: GEN: Patient appears in mild distress. HEAD: No evidence of trauma, no raccoon/Cueva sign. NECK: Nontender, painless range of motion, trachea midline Negative Nexus criteria, there is no mid line tenderness, distracting injury, altered mental status, neuro deficit, recent EtOH. EYES: PERRLA, EOMI ENT: External inspection normal, trachea is midline, airway is normal and with normal occlusion, No bony tenderness RESP: Chest is nontender and has symmetric movement, no ecchymosis, breath sound s are normal no crackles, wheezes or rales CVS: Heart sounds are normal, no murmur noted, No JVD. ABG/GI: Nontender, soft, normal bowel sounds, no distention, no organomegaly, pelvic rock is negative. NEURO: Oriented AOx3, neuro is grossly intact, sensation and motor is normal all 4 extremities moving, cranial nerves II through XII are intact, GCS is 15 PSYCH: Normal mood and affect SKIN: Intact, warm and dry, no crepitus and without decubitus BACK: No CVA tenderness, no vertebral tenderness, no step-off's, no crepitus EXT: Patient has mild deformity at the right clavicle with no tenting, 2+ radial pulses bilaterally vice president of compliance are equal bilaterally, no other upper extremity tenderness noted, hips are nontender, no pedal edema, normal color and temperature, normal range of motion of extremities with normal tendon exam, 2+ pulses in all four extremities Initial Vital Signs Initial Vital Signs: Vital Signs Temperature 97.4 F L 08/27/20 17:12 Pulse Rate 86 08/27/20 17:12 Respiratory Rate 16 08/27/20 17:12 Blood Pressure 172/79 H 08/27/20 17:12 Pulse Oximetry 97 08/27/20 17:12 Scores GCS Staples coma scale eye opening: Spontaneous Staples coma scale verbal response: Orientated Murtaza coma scale motor response: Obey commands Staples coma scale total score: 15 Course Orders Ordered: ED Orders 08/27/20 17:15 XR shoulder RT min 2V Stat Discontinued Medications Hydrocodone Bitart/Acetaminophen (Hydrocodone/Acet 5/325 Prepack) 1 bottle MISC SEEINSTR ONE Stop: 08/27/20 18:23 Last Admin: 08/27/20 18:39 Dose: 1 bottle Documented by: SACHI Vital Signs Vital signs: Vital Signs - 8 hr 08/27/20 17:12 08/27/20 18:45 Temperature 97.4 F L 98.7 F Pulse Rate 86 86 Respiratory Rate 16 18 Blood Pressure 172/79 H 151/72 H Pulse Oximetry 97 98 MDM - Fall Imaging Data Extremity x-ray #1: Radiologist's Impression: [address] [id number] ReportSigned Patient: Crystal Nickerson [facility]#: [id number]: 7Acct:[id number]/Sex: 74 / FDate of Service: 08/27/20Loc: EDAccession Number: [id number] Procedure: XR shoulder RT min 2V Ordering Provider: Emily Singh D.O. PROCEDURE: XR SHOULDER RT MIN 2V INDICATIONS: fall TECHNIQUE: 4 views of the shoulder were acquired. COMPARISON: None. FINDINGS: Bones: There is a moderately displaced fracture of the clavicle, with overlap ping fragments of approximately 1.7 cm. No additional acute fractures are seen. No shoulder dislocation. There is a remote appearing right posterior 9th rib fracture. Age-appropriate bony degenerative changes are seen. Soft tissues: No suspicious soft tissue calcifications. The visualized lung demonstrates an unremarkable appearance. IMPRESSION: Right clavicle fracture. Dictated by: David Torres M.D. on 08/27/2020 at 16:54 Approved by: David Torres M.D. on 08/27/2020 at 16:55 MDM Narrative Medical decision making narrative: This is a 74-year-old female with mechanical fall with right shoulder pain and right clavicle fracture. Patient denies any other injuries. She is not currently anticoagulated. Patient was placed in sling, given referral to follow up with primary care or orthopedic surgery. Pain control and return precautions discussed with her as well as her . Discharge Plan Departure Patient Disposition: Home Clinical Impression: Closed fracture of right clavicle, Fall from ground level Instructions: DI for Clavicle Fracture-Adult Activity Restrictions/Additional Instructions: Follow up with your physician or orthopedic surgery in the next week for recheck. Call for an appointment. Continue your home medications as prescribed. Take ibuprofen up to 600mg every 6 hours as needed until prescribed. You may take ibuprofen with the narcotic pain medication. Take pain medication as prescribed, this medication can make you sleepy, do not drive, perform hazardous activities or make any major decisions while taking it. Your prescription was sent [facility] in [place]. Make sure taking a stool softener such as Colace 1-2 tablets daily until stools are soft and regular. Splint Care: Elevated affected body part to decrease swelling. OK to use ice pack on the affected body part. Use for 15-20 minutes each time, for 5-6x per day. If you develop confusion, severe headaches, new neck or back pain, persistent vomiting, new chest pain or shortness of breath, worsening pain, numbness, tingling, discoloration of the affected body part, adjust your sling and either see your doctor for an urgent re-assessment, or return to the Emergency Department. Return to the Emergency Department for any new or worsening symptoms. Prescriptions: New hydrocodone-acetaminophen [[place]] 5-325 mg tablet 1 tab PO Q6H PRN (Reason: pain) Qty: 14 RF: 0 No Action alendronate 70 mg tablet 70 mg PO QWEEK Qty: 12 RF: 3 lysine 500 mg capsule 1,000 mg PO 3XW RF: 0 Turmeric 1 cap PO 2XW RF: 0 vitamin B complex tablet 1 tab PO DAILY RF: 0 Calcium See Rx Instructions .ROUTE .COMPLEX RF: 0 Vitamin B-12 See Rx Instructions .ROUTE .COMPLEX RF: 0 vitamin D 1,000 unit PO DAILY Qty: 30 RF: 0 Referrals: Helen Burroughs MD [Primary Care Provider] - Brie Rawls MD [Physician] -
[2020-08-27] MEDS: HYDROCODONE/ACET 5/325 PREPACK 1 BOTTLE MISC (18:39)
[2020-08-27 18:45] VITALS: BP 151/72; PULSE 86; RESP 18; TEMP 37.1; O2SAT 98
== END 2020-08-27 18:47 | disposition home or self-care (01) ==
PROVIDERS: Emergency Provider Emergency Medicine; Family Provider Internal Medicine; PCP Internal Medicine
DX: S42.001A Fracture of unspecified part of right clavicle, initial encounter for closed fracture (principal); M54.2 Cervicalgia; G20 Parkinson's disease; W19.XXXA Unspecified fall, initial encounter
CPT/HCPCS: 73030; 99281; 99283

== ENCOUNTER → 2020-09-16 08:50 | Outpatient (CLI) | payer MEDICARE, OTHER, SELFPAY ==
--- NOTE | 2020-09-16 | DI.RAD.S_ITS ---
PROCEDURE: XR CLAVICLE RT INDICATIONS: Displaced fracture of lateral end of right clavicle, subsequ TECHNIQUE: 2 views of the clavicle were acquired. COMPARISON: None. FINDINGS: Bones: No dislocations. No suspicious bony lesions. There is a transverse right clavicular fracture at the junction of the middle and lateral thirds, with proximal fracture margin overlapped by approximately 2 cm an elevated above the more distal fracture margin. Soft tissues: No suspicious soft tissue calcifications. IMPRESSION: Overlapped lateral clavicular fracture, with the proximal fracture margin elevated above that distal fracture margin. Dictated by: Stanton Barger M.D. on 09/16/2020 at 9:57 Approved by: Stanton Barger M.D. on 09/16/2020 at 9:59
== END ==
PROVIDERS: Family Provider Internal Medicine; PCP Internal Medicine; Referring Provider Internal Medicine; Visit Provider Internal Medicine
DX: S42.031D Displaced fracture of lateral end of right clavicle, subsequent encounter for fracture with routine healing (principal); X58.XXXD Exposure to other specified factors, subsequent encounter
CPT/HCPCS: 73000

== ENCOUNTER 2020-10-03 09:00 | Outpatient (RCR) | payer MEDICARE, OTHER, SELFPAY ==
--- NOTE | 2020-05-06 15:56 | PT.OIE ---
Current Diagnoses Parkinson's disease (05/06/20) Dysphagia, unspecified (05/06/20) Other abnormalities of gait and mobility (05/06/20) Repeated falls (05/06/20) Past Medical History (Last Updated 03/25/19 @ 08:21 by Claudia Parra RN) Arthritis (Acute) Chickenpox (Resolved ~1957) History of recurrent ear infection (Resolved) Hx of fracture of wrist (Resolved ~11/2012) Hyperlipemia (Chronic) Measles (Resolved) Osteopenia (Chronic 1990) Ovarian cyst (Resolved 1977) Peptic ulcer disease (Resolved 1987) Past Surgical History (Last Updated 03/06/18 @ 10:48 by Awilda Marie LPN) History of breast augmentation (2002) Hx of thumb surgery (Resolved 2003) Status post breast lumpectomy Visit Care Team Role Provider Type Helen Burroughs MD Attending Provider Physician Family Provider Primary Care Provider Referring Provider Specialty: Internal Medicine Address: [address] [place] [address] Email: [email or web address] Physical Therapy Initial Evaluation PT-OP-A Visit Information Start: 05/06/20 08:34 Freq: Status: Active Protocol: Document 05/06/20 14:15 AMB (Rec: 05/06/20 15:56 AMB [email or web address]) Out-Patient Physical Therapy Visit Information Visit Information Visit Type Initial Evaluation Visit Start Time 14:15 Visit Stop Time 15:05 Total Visit Minutes 50 Visit Number 1 PT-OP-B Current Condition Start: 05/06/20 08:34 Freq: Status: Active Protocol: Document 05/06/20 14:17 AMB (Rec: 05/06/20 14:35 AMB [id number]) Current Condition History of Current Condition Onset Date years Current Complaints fall history, History of Current Condition 5 falls in the last 6 months. Picking up an m&m from the floor and fell backwards. Has fallen forward multiple time and cut her face- not sure what causes it. Also has noticed reaching for things that are out of reach. Lives in a two story house with a rail, step over step and doesn 't feel like this is an issue, has a walk in shower without grab bars. L shoulder pain with stretching. Difficult to get up from the floor- does have knee pain with kneeling. Prior Treatments and Tests BIG therapy recently have continued on with exercises Treatment Goals Patient/Caregiver Goals Wants to walk with a cane when out in the community. Prior Functional Status Baseline Function- ADL's Modified Independent Baseline Function- Mobility Modified Independent Current Functional Impairments (Reported) Functional Limitations- ADL's Difficulty with floor transfers, gait, no longer driving Personal Factors Other Personal Factors That May Effect Recent cateract surgery pt Therapy/Recovery feels vision isn't the same after that PT-OP-C Subjective Start: 05/06/20 08:34 Freq: Status: Active Protocol: Document 05/06/20 14:15 AMB (Rec: 05/06/20 15:56 AMB [email or web address]) Patient Questionnaires ABC- Activity Specific Balance Confidence Scale ABC Score 48 ABC Functional Impairment 40 to <60% Impaired (Score 41- 60) PT-OP-E Functional Tests Start: 05/06/20 08:34 Freq: Status: Active Protocol: Document 05/06/20 14:15 AMB (Rec: 05/06/20 15:56 AMB [email or web address]) Functional Tests Dynamic Gait Index (DGI) Score 15 DGI Impairment Rating 20 to <40% Impaired (Score 15- 19) Five Times Sit to Stand Test Score 11 seconds, no UE PT-OP-G Mobility & Gait Start: 05/06/20 08:34 Freq: Status: Active Protocol: Document 05/06/20 14:15 AMB (Rec: 05/06/20 15:56 AMB [email or web address]) OP Gait Assessment Comments Gait Comments Pt can ambulate with arm swing when cued to do so, but naturally very stiff. Horizontal head turns are unsafe. Stair Climbing Evaluation Technique/Endurance Stair Climbing Direction Ascend and Descend Stair Climbing Technique Step Over Step Stair Climbing Set # Repetitions (reps) 4 PT-OP-J Posture/Palpation/Skin Start: 05/06/20 08:34 Freq: Status: Active Protocol: Document 05/06/20 14:15 AMB (Rec: 05/06/20 15:56 AMB [email or web address]) Posture Evaluation Comments Posture Comments scoliosis with left shoulder high PT-OP-M Strength Start: 05/06/20 08:34 Freq: Status: Active Protocol: Document 05/06/20 14:15 AMB (Rec: 05/06/20 15:56 AMB [email or web address]) Hip Strength Hip Manual Muscle Testing Right Flexion (L2) 4 Good Extension (S1) 4 Good Abduction 4 Good Adduction 4 Good Left Flexion (L2) 4 Good Extension (S1) 4 Good Abduction 4 Good Adduction 4 Good Knee Strength Knee Manual Muscle Testing Right Flexion (S2) 5 Normal Extension (L3) 5 Normal Left Flexion (S2) 5 Normal Extension (L3) 5 Normal PT-OP-Q Treatments Start: 05/06/20 08:34 Freq: Status: Active Protocol: Document 05/06/20 14:15 AMB (Rec: 05/06/20 15:56 AMB [email or web address]) Neuro Re-Education Treatment Other Activities 1 Details X1 Comments modified tandem horizontal head turns PT-OP-T Assessment and Plan Start: 05/06/20 08:34 Freq: Status: Active Protocol: Document 05/06/20 14:15 AMB (Rec: 05/06/20 15:56 AMB [email or web address]) Physical Therapy Assessment Rehab Potential Rehabilitation Potential Good Evaluation Complexity Number of Personal Factors/Comorbidities 1-2 Number of Body Systems Impaired 4 or More Clinical Presentation at Evaluation Evolving Impairments Impairments Activity Tolerance,Balance, Functional Activities, Functional Mobility,Gait, Posture,Strength,Visual Motor Goals Two Impairment Gait Short Term Goal (STG) Crystal will walk in the community for 6 minutes with a SPC. STG Duration 4 weeks Immunochemist Goal (LTG) Crystal will ambulate with slow head turns so she could safely cross a parking lot while being aware of oncoming vehicles without loss of balance. LTG Duration 8 weeks One Impairment Fall risk Short Term Goal (STG) Crystal will improve her DGI to 19/24 so that she can show decreased risk of falling. STG Duration 4 weeks Correction Goal (LTG) Crystal will safely reach for objects on the floor without loss of balance. LTG Duration 8 weeks Assessment Summary Assessment Crystal attends physical therapy with significant history of falling. She had a score of 15/24 on the dynamica gait index which show increased risk of falling, with the worst being horizontal head turns. She was unable to visually track vertical movement, and is aware of this and has been seeking medical care for it for the past month . She feels like it's been this way since her cateract surgery, but that really wouldn't make sense. Her visual symptoms are likely playing a role in her balance dysfunction, especially her feeling that she is always reaching for things that are out of her reach (she was unable to make her eyes converge as well during testing). She will benefit from gait and balance training , however her visual symptoms may make this challenging. Physical Therapy Plan Frequency and Duration Frequency of Treatment 2x/Week Duration of Treatment 8 weeks Plan of Care Start Date 05/06/20 Plan of Care End Date 07/01/20 Therapeutic Interventions Therapeutic Interventions Balance Training,Gait Training ,Home Exercise Program,Manual Therapy,Neuromuscular Re- education,Self-Care/Home Management,Therapeutic Activities,Therapeutic Exercises Next Visit Focus/Plan Next Note Type Treatment Note Next Visit Plan Progress HEP, focusing on balance and gait
--- NOTE | 2020-05-06 15:57 | PT.OPPOC ---
Physical, Occupational & Speech Therapy At [facility] Current Diagnoses Parkinson's disease (05/06/20) Dysphagia, unspecified (05/06/20) Other abnormalities of gait and mobility (05/06/20) Repeated falls (05/06/20) Visit Care Team Role Provider Type Helen Burroughs MD Attending Provider Physician Family Provider Primary Care Provider Referring Provider Specialty: Internal Medicine Address: [address] [place] [address], [id number] Email: [email or web address] Plan Of Care PT-OP-T Assessment and Plan Start: 05/06/20 08:34 Freq: Status: Active Protocol: Document 05/06/20 14:15 AMB (Rec: 05/06/20 15:56 AMB [email or web address]) Physical Therapy Assessment Rehab Potential Rehabilitation Potential Good Evaluation Complexity Number of Personal Factors/Comorbidities 1-2 Number of Body Systems Impaired 4 or More Clinical Presentation at Evaluation Evolving Impairments Impairments Activity Tolerance,Balance, Functional Activities, Functional Mobility,Gait, Posture,Strength,Visual Motor Goals Two Impairment Gait Short Term Goal (STG) Crystal will walk in the community for 6 minutes with a SPC. STG Duration 4 weeks Prison Goal (LTG) Crystal will ambulate with slow head turns so she could safely cross a parking lot while being aware of oncoming vehicles without loss of balance. LTG Duration 8 weeks One Impairment Fall risk Short Term Goal (STG) Crystal will improve her DGI to 19/24 so that she can show decreased risk of falling. STG Duration 4 weeks Prison Goal (LTG) Crystal will safely reach for objects on the floor without loss of balance. LTG Duration 8 weeks Assessment Summary Assessment Crystal attends physical therapy with significant history of falling. She had a score of 15/24 on the dynamica gait index which show increased risk of falling, with the worst being horizontal head turns. She was unable to visually track vertical movement, and is aware of this and has been seeking medical care for it for the past month . She feels like it's been this way since her cateract surgery, but that really wouldn't make sense. Her visual symptoms are likely playing a role in her balance dysfunction, especially her feeling that she is always reaching for things that are out of her reach (she was unable to make her eyes converge as well during testing). She will benefit from gait and balance training , however her visual symptoms may make this challenging. Physical Therapy Plan Frequency and Duration Frequency of Treatment 2x/Week Duration of Treatment 8 weeks Plan of Care Start Date 05/06/20 Plan of Care End Date 07/01/20 Therapeutic Interventions Therapeutic Interventions Balance Training,Gait Training ,Home Exercise Program,Manual Therapy,Neuromuscular Re- education,Self-Care/Home Management,Therapeutic Activities,Therapeutic Exercises Next Visit Focus/Plan Next Note Type Treatment Note Next Visit Plan Progress HEP, focusing on balance and gait Plan of Care Dates Plan of Care Start Date 05/06/20 Plan of Care End Date 07/01/20 Electronically Signed by: Maribel Fernández, PT 05/06/20 [id number] Please Sign and Return: I have reviewed this Plan of Care and certify that the skilled therapy services above are required to meet the patient?s needs. Physician Signature Date Printed Name and Credentials Clinical Instructor Signature Printed Name and Credentials
--- NOTE | 2020-05-09 10:05 | PT.OTN ---
Current Diagnoses Parkinson's disease (05/09/20) Dysphagia, unspecified (05/09/20) Other abnormalities of gait and mobility (05/09/20) Repeated falls (05/09/20) Physical Therapy Treatment Note PT-OP-A Visit Information Start: 05/06/20 08:34 Freq: Status: Active Protocol: Document 05/09/20 07:30 AMB (Rec: 05/09/20 08:18 AMB [id number]) Out-Patient Physical Therapy Visit Information Visit Information Visit Type Treatment Note Visit Start Time 07:30 Visit Stop Time 08:15 Total Visit Minutes 45 Visit Number 2 PT-OP-B Current Condition Start: 05/06/20 08:34 Freq: Status: Active Protocol: Document 05/06/20 14:17 AMB (Rec: 05/06/20 14:35 AMB [id number]) Current Condition History of Current Condition Onset Date years Current Complaints fall history, History of Current Condition 5 falls in the last 6 months. Picking up an m&m from the floor and fell backwards. Has fallen forward multiple time and cut her face- not sure what causes it. Also has noticed reaching for things that are out of reach. Lives in a two story house with a rail, step over step and doesn 't feel like this is an issue, has a walk in shower without grab bars. L shoulder pain with stretching. Difficult to get up from the floor- does have knee pain with kneeling. Prior Treatments and Tests BIG therapy recently have continued on with exercises Treatment Goals Patient/Caregiver Goals Wants to walk with a cane when out in the community. Prior Functional Status Baseline Function- ADL's Modified Independent Baseline Function- Mobility Modified Independent Current Functional Impairments (Reported) Functional Limitations- ADL's Difficulty with floor transfers, gait, no longer driving Personal Factors Other Personal Factors That May Effect Recent cateract surgery pt Therapy/Recovery feels vision isn't the same after that PT-OP-C Subjective Start: 05/06/20 08:34 Freq: Status: Active Protocol: Document 05/09/20 07:30 AMB (Rec: 05/09/20 08:18 AMB [id number]) OP-PT Subjective Patient Comments Patient Comments Pt reports a fall this morning . Was turning in slippers and hit her head against a corner . PT-OP-E Functional Tests Start: 05/06/20 08:34 Freq: Status: Active Protocol: Document 05/06/20 14:15 AMB (Rec: 05/06/20 15:56 AMB [email or web address]) Functional Tests Dynamic Gait Index (DGI) Score 15 DGI Impairment Rating 20 to <40% Impaired (Score 15- 19) Five Times Sit to Stand Test Score 11 seconds, no UE PT-OP-G Mobility & Gait Start: 05/06/20 08:34 Freq: Status: Active Protocol: Document 05/06/20 14:15 AMB (Rec: 05/06/20 15:56 AMB [email or web address]) OP Gait Assessment Comments Gait Comments Pt can ambulate with arm swing when cued to do so, but naturally very stiff. Horizontal head turns are unsafe. Stair Climbing Evaluation Technique/Endurance Stair Climbing Direction Ascend and Descend Stair Climbing Technique Step Over Step Stair Climbing Set # Repetitions (reps) 4 PT-OP-J Posture/Palpation/Skin Start: 05/06/20 08:34 Freq: Status: Active Protocol: Document 05/06/20 14:15 AMB (Rec: 05/06/20 15:56 AMB [email or web address]) Posture Evaluation Comments Posture Comments scoliosis with left shoulder high PT-OP-M Strength Start: 05/06/20 08:34 Freq: Status: Active Protocol: Document 05/06/20 14:15 AMB (Rec: 05/06/20 15:56 AMB [email or web address]) Hip Strength Hip Manual Muscle Testing Right Flexion (L2) 4 Good Extension (S1) 4 Good Abduction 4 Good Adduction 4 Good Left Flexion (L2) 4 Good Extension (S1) 4 Good Abduction 4 Good Adduction 4 Good Knee Strength Knee Manual Muscle Testing Right Flexion (S2) 5 Normal Extension (L3) 5 Normal Left Flexion (S2) 5 Normal Extension (L3) 5 Normal PT-OP-Q Treatments Start: 05/06/20 08:34 Freq: Status: Active Protocol: Document 05/09/20 07:30 AMB (Rec: 05/09/20 10:05 AMB [id number]) Gait Training Gait Activity 2 Description SPC Comments sequencing cane and LEs, suggested using SPC in left hand as pt feels right leg is weaker 1 Description 4WW vs FWW education Distance/Duration 400' Comments problem solving breaks with 4WW, backing up to chair, navigating around obstacles Neuro Re-Education Treatment Balance Activities 1 Details foam EO/EC Comments NBOS-difficult Other Activities 2 Details hallway walking with head turns Comments SPC vertical and horizontal 1 Details X1 Comments modified tandem horizontal head turns PT-OP-T Assessment and Plan Start: 05/06/20 08:34 Freq: Status: Active Protocol: Document 05/09/20 07:30 AMB (Rec: 05/09/20 09:44 AMB [id number]) Physical Therapy Assessment Assessment Summary Assessment Educated Crystal on footwear safety. Tried 4WW and FWW and educated that she could choose to use a walker in the morning/at night/ when levodopa hasn't kicked in yet, as she was not especially excited to use a walker as it makes me feel old Pt overall slow/careful with all ADs used in clinic today. Vision continues to be a large factor. Physical Therapy Plan Next Visit Focus/Plan Next Note Type Treatment Note Next Visit Plan Review fall safety, home modification, assistive device , continue balance/ gait training
--- NOTE | 2020-05-11 15:18 | PT.OTN ---
Current Diagnoses Parkinson's disease (05/11/20) Dysphagia, unspecified (05/11/20) Other abnormalities of gait and mobility (05/11/20) Repeated falls (05/11/20) Physical Therapy Treatment Note PT-OP-A Visit Information Start: 05/06/20 08:34 Freq: Status: Active Protocol: Document 05/11/20 14:15 AMB (Rec: 05/11/20 15:09 AMB [email or web address]) Out-Patient Physical Therapy Visit Information Visit Information Visit Type Treatment Note Visit Start Time 14:15 Visit Stop Time 15:00 Total Visit Minutes 45 Visit Number 3 PT-OP-B Current Condition Start: 05/06/20 08:34 Freq: Status: Active Protocol: Document 05/06/20 14:17 AMB (Rec: 05/06/20 14:35 AMB [id number]) Current Condition History of Current Condition Onset Date years Current Complaints fall history, History of Current Condition 5 falls in the last 6 months. Picking up an m&m from the floor and fell backwards. Has fallen forward multiple time and cut her face- not sure what causes it. Also has noticed reaching for things that are out of reach. Lives in a two story house with a rail, step over step and doesn 't feel like this is an issue, has a walk in shower without grab bars. L shoulder pain with stretching. Difficult to get up from the floor- does have knee pain with kneeling. Prior Treatments and Tests BIG therapy recently have continued on with exercises Treatment Goals Patient/Caregiver Goals Wants to walk with a cane when out in the community. Prior Functional Status Baseline Function- ADL's Modified Independent Baseline Function- Mobility Modified Independent Current Functional Impairments (Reported) Functional Limitations- ADL's Difficulty with floor transfers, gait, no longer driving Personal Factors Other Personal Factors That May Effect Recent cateract surgery pt Therapy/Recovery feels vision isn't the same after that PT-OP-C Subjective Start: 05/06/20 08:34 Freq: Status: Active Protocol: Document 05/11/20 14:15 AMB (Rec: 05/11/20 15:09 AMB [id number]) OP-PT Subjective Patient Comments Patient Comments Pt reports no new falls, but also attends without assistive device. PT-OP-E Functional Tests Start: 10/30/20 08:34 Freq: Status: Active Protocol: Document 05/06/20 14:15 AMB (Rec: 05/06/20 15:56 AMB [email or web address]) Functional Tests Dynamic Gait Index (DGI) Score 15 DGI Impairment Rating 20 to <40% Impaired (Score 15- 19) Five Times Sit to Stand Test Score 11 seconds, no UE PT-OP-G Mobility & Gait Start: 05/06/20 08:34 Freq: Status: Active Protocol: Document 05/06/20 14:15 AMB (Rec: 05/06/20 15:56 AMB [email or web address]) OP Gait Assessment Comments Gait Comments Pt can ambulate with arm swing when cued to do so, but naturally very stiff. Horizontal head turns are unsafe. Stair Climbing Evaluation Technique/Endurance Stair Climbing Direction Ascend and Descend Stair Climbing Technique Step Over Step Stair Climbing Set # Repetitions (reps) 4 PT-OP-J Posture/Palpation/Skin Start: 05/06/20 08:34 Freq: Status: Active Protocol: Document 05/06/20 14:15 AMB (Rec: 05/06/20 15:56 AMB [email or web address]) Posture Evaluation Comments Posture Comments scoliosis with left shoulder high PT-OP-M Strength Start: 05/06/20 08:34 Freq: Status: Active Protocol: Document 05/06/20 14:15 AMB (Rec: 05/06/20 15:56 AMB [email or web address]) Hip Strength Hip Manual Muscle Testing Right Flexion (L2) 4 Good Extension (S1) 4 Good Abduction 4 Good Adduction 4 Good Left Flexion (L2) 4 Good Extension (S1) 4 Good Abduction 4 Good Adduction 4 Good Knee Strength Knee Manual Muscle Testing Right Flexion (S2) 5 Normal Extension (L3) 5 Normal Left Flexion (S2) 5 Normal Extension (L3) 5 Normal PT-OP-Q Treatments Start: 05/06/20 08:34 Freq: Status: Active Protocol: Document 05/11/20 14:15 AMB (Rec: 05/11/20 15:18 AMB [id number]) Gait Training Gait Activity 3 Description stepping over hurdles Comments CGA, with SPC 2 Description SPC Comments sequencing cane and LEs, focus on looking forward rather than down, keeping cane farther away so doesn't trip on it. Neuro Re-Education Treatment Other Activities 3 Details stepping/ reaching/ weightshifting Comments stepping forward instead of reaching too far 2 Details hallway walking with head turns Comments SPC vertical and horizontal PT-OP-T Assessment and Plan Start: 05/06/20 08:34 Freq: Status: Active Protocol: Document 05/11/20 14:15 AMB (Rec: 05/11/20 15:09 AMB [id number]) Physical Therapy Assessment Assessment Summary Assessment Educated Crystal that her DGI score would indicate that she would be safer with AD. Told her she can use SPC at home, as she worries about a walker in the bathroom and kitchen, to have 's opinion on whether SPC is enough, would recommend 4WW for times when she is more off balance/ at night. Physical Therapy Plan Next Visit Focus/Plan Next Note Type Treatment Note Next Visit Plan Review fall safety, home modification, assistive device , continue balance/ gait training
--- NOTE | 2020-05-16 11:50 | PT.OTN ---
Current Diagnoses Parkinson's disease (05/16/20) Dysphagia, unspecified (05/16/20) Other abnormalities of gait and mobility (05/16/20) Repeated falls (05/16/20) Physical Therapy Treatment Note PT-OP-A Visit Information Start: 05/06/20 08:34 Freq: Status: Active Protocol: Document 05/16/20 10:30 AMB (Rec: 05/16/20 11:49 AMB [email or web address]) Out-Patient Physical Therapy Visit Information Visit Information Visit Type Treatment Note Visit Start Time 10:30 Visit Stop Time 11:15 Total Visit Minutes 45 Visit Number 4 PT-OP-B Current Condition Start: 05/06/20 08:34 Freq: Status: Active Protocol: Document 05/06/20 14:17 AMB (Rec: 05/06/20 14:35 AMB [id number]) Current Condition History of Current Condition Onset Date years Current Complaints fall history, History of Current Condition 5 falls in the last 6 months. Picking up an m&m from the floor and fell backwards. Has fallen forward multiple time and cut her face- not sure what causes it. Also has noticed reaching for things that are out of reach. Lives in a two story house with a rail, step over step and doesn 't feel like this is an issue, has a walk in shower without grab bars. L shoulder pain with stretching. Difficult to get up from the floor- does have knee pain with kneeling. Prior Treatments and Tests BIG therapy recently have continued on with exercises Treatment Goals Patient/Caregiver Goals Wants to walk with a cane when out in the community. Prior Functional Status Baseline Function- ADL's Modified Independent Baseline Function- Mobility Modified Independent Current Functional Impairments (Reported) Functional Limitations- ADL's Difficulty with floor transfers, gait, no longer driving Personal Factors Other Personal Factors That May Effect Recent cateract surgery pt Therapy/Recovery feels vision isn't the same after that PT-OP-C Subjective Start: 05/06/20 08:34 Freq: Status: Active Protocol: Document 05/16/20 10:30 AMB (Rec: 05/16/20 11:49 AMB [email or web address]) OP-PT Subjective Patient Comments Patient Comments Pt reports new fall, she was stepping over a donahue on a path in her yard. She was not using her cane. PT-OP-E Functional Tests Start: 05/06/20 08:34 Freq: Status: Active Protocol: Document 05/06/20 14:15 AMB (Rec: 05/06/20 15:56 AMB [email or web address]) Functional Tests Dynamic Gait Index (DGI) Score 15 DGI Impairment Rating 20 to <40% Impaired (Score 15- 19) Five Times Sit to Stand Test Score 11 seconds, no UE PT-OP-G Mobility & Gait Start: 05/06/20 08:34 Freq: Status: Active Protocol: Document 05/06/20 14:15 AMB (Rec: 05/06/20 15:56 AMB [email or web address]) OP Gait Assessment Comments Gait Comments Pt can ambulate with arm swing when cued to do so, but naturally very stiff. Horizontal head turns are unsafe. Stair Climbing Evaluation Technique/Endurance Stair Climbing Direction Ascend and Descend Stair Climbing Technique Step Over Step Stair Climbing Set # Repetitions (reps) 4 PT-OP-J Posture/Palpation/Skin Start: 05/06/20 08:34 Freq: Status: Active Protocol: Document 05/06/20 14:15 AMB (Rec: 05/06/20 15:56 AMB [email or web address]) Posture Evaluation Comments Posture Comments scoliosis with left shoulder high PT-OP-M Strength Start: 05/06/20 08:34 Freq: Status: Active Protocol: Document 05/06/20 14:15 AMB (Rec: 05/06/20 15:56 AMB [email or web address]) Hip Strength Hip Manual Muscle Testing Right Flexion (L2) 4 Good Extension (S1) 4 Good Abduction 4 Good Adduction 4 Good Left Flexion (L2) 4 Good Extension (S1) 4 Good Abduction 4 Good Adduction 4 Good Knee Strength Knee Manual Muscle Testing Right Flexion (S2) 5 Normal Extension (L3) 5 Normal Left Flexion (S2) 5 Normal Extension (L3) 5 Normal PT-OP-Q Treatments Start: 05/06/20 08:34 Freq: Status: Active Protocol: Document 05/16/20 10:30 AMB (Rec: 05/16/20 11:49 AMB [email or web address]) Gait Training Gait Activity 3 Description stepping over hurdles Comments CGA, with SPC 2 Description SPC Distance/Duration 500' Comments sequencing cane and LEs, focus on looking forward rather than down, walking BIG with natural arm swing, thoracic rotation Neuro Re-Education Treatment Other Activities 3 Details stepping/ reaching/ weightshifting Comments picking up cones from the floor 2 Details hallway walking with head turns Comments SPC vertical and horizontal 1 Details X1 Comments modified tandem horizontal head turns, added walking towards and away with SPC more difficult PT-OP-T Assessment and Plan Start: 05/06/20 08:34 Freq: Status: Active Protocol: Document 05/16/20 10:31 AMB (Rec: 05/16/20 11:37 AMB [id number]) Physical Therapy Assessment Goals Two Impairment Gait Short Term Goal (STG) Crystal will walk in the community for 6 minutes with a SPC. STG Duration 4 weeks [facility] Goal (LTG) Crystal will ambulate with slow head turns so she could safely cross a parking lot while being aware of oncoming vehicles without loss of balance. LTG Duration 8 weeks One Impairment Fall risk Short Term Goal (STG) Crystal will improve her DGI to 19/24 so that she can show decreased risk of falling. STG Duration 4 weeks Field Counsel Goal (LTG) Crystal will safely reach for objects on the floor without loss of balance. LTG Duration 8 weeks Assessment Summary Assessment Crystal continues to have slow processing, dual tasking increases her fall risk. Vision continues to limit safety as well. Crystal is hesitant to continue to use cane as it difficult for her to get the sequencing correct. Did fax her PCP for 4WW prescription per her request so she can use it outside and on first level of her home with plan to use SPC on upper floor. Physical Therapy Plan Next Visit Focus/Plan Next Note Type Treatment Note Next Visit Plan Review fall safety, home modification, assistive device , continue balance/ gait training
--- NOTE | 2020-05-19 08:03 | PT.OTN ---
Current Diagnoses Parkinson's disease (05/18/20) Dysphagia, unspecified (05/18/20) Other abnormalities of gait and mobility (05/18/20) Repeated falls (05/18/20) Physical Therapy Treatment Note PT-OP-A Visit Information Start: 05/06/20 08:34 Freq: Status: Active Protocol: Document 05/18/20 11:08 AMB (Rec: 05/18/20 11:57 AMB [id number]) Out-Patient Physical Therapy Visit Information Visit Information Visit Type Treatment Note Visit Start Time 10:30 Visit Stop Time 11:15 Total Visit Minutes 45 Visit Number 5 PT-OP-B Current Condition Start: 05/06/20 08:34 Freq: Status: Active Protocol: Document 05/06/20 14:17 AMB (Rec: 05/06/20 14:35 AMB [id number]) Current Condition History of Current Condition Onset Date years Current Complaints fall history, History of Current Condition 5 falls in the last 6 months. Picking up an m&m from the floor and fell backwards. Has fallen forward multiple time and cut her face- not sure what causes it. Also has noticed reaching for things that are out of reach. Lives in a two story house with a rail, step over step and doesn 't feel like this is an issue, has a walk in shower without grab bars. L shoulder pain with stretching. Difficult to get up from the floor- does have knee pain with kneeling. Prior Treatments and Tests BIG therapy recently have continued on with exercises Treatment Goals Patient/Caregiver Goals Wants to walk with a cane when out in the community. Prior Functional Status Baseline Function- ADL's Modified Independent Baseline Function- Mobility Modified Independent Current Functional Impairments (Reported) Functional Limitations- ADL's Difficulty with floor transfers, gait, no longer driving Personal Factors Other Personal Factors That May Effect Recent cateract surgery pt Therapy/Recovery feels vision isn't the same after that PT-OP-C Subjective Start: 05/06/20 08:34 Freq: Status: Active Protocol: Document 05/18/20 11:08 AMB (Rec: 05/18/20 11:57 AMB [id number]) OP-PT Subjective Patient Comments Patient Comments Pt reports no new falls, she attends with her SPC. PT-OP-E Functional Tests Start: 05/06/20 08:34 Freq: Status: Active Protocol: Document 05/06/20 14:15 AMB (Rec: 05/06/20 15:56 AMB [email or web address]) Functional Tests Dynamic Gait Index (DGI) Score 15 DGI Impairment Rating 20 to <40% Impaired (Score 15- 19) Five Times Sit to Stand Test Score 11 seconds, no UE PT-OP-G Mobility & Gait Start: 05/06/20 08:34 Freq: Status: Active Protocol: Document 05/06/20 14:15 AMB (Rec: 05/06/20 15:56 AMB [email or web address]) OP Gait Assessment Comments Gait Comments Pt can ambulate with arm swing when cued to do so, but naturally very stiff. Horizontal head turns are unsafe. Stair Climbing Evaluation Technique/Endurance Stair Climbing Direction Ascend and Descend Stair Climbing Technique Step Over Step Stair Climbing Set # Repetitions (reps) 4 PT-OP-J Posture/Palpation/Skin Start: 05/06/20 08:34 Freq: Status: Active Protocol: Document 05/06/20 14:15 AMB (Rec: 05/06/20 15:56 AMB [email or web address]) Posture Evaluation Comments Posture Comments scoliosis with left shoulder high PT-OP-M Strength Start: 05/06/20 08:34 Freq: Status: Active Protocol: Document 05/06/20 14:15 AMB (Rec: 05/06/20 15:56 AMB [email or web address]) Hip Strength Hip Manual Muscle Testing Right Flexion (L2) 4 Good Extension (S1) 4 Good Abduction 4 Good Adduction 4 Good Left Flexion (L2) 4 Good Extension (S1) 4 Good Abduction 4 Good Adduction 4 Good Knee Strength Knee Manual Muscle Testing Right Flexion (S2) 5 Normal Extension (L3) 5 Normal Left Flexion (S2) 5 Normal Extension (L3) 5 Normal PT-OP-Q Treatments Start: 05/06/20 08:34 Freq: Status: Active Protocol: Document 05/18/20 11:00 AMB (Rec: 05/19/20 08:03 AMB [email or web address]) Therapeutic Exercises Standing Exercises 1 Standing Exercise Name sit to stand Reps/Minutes 15 Comments vc avoid hitting back of knees on chair Gait Training Gait Activity 4 Description reaching for door and practice closing it Comments vc to not reach so far for door and moving body towards it instead 3 Description stepping over hurdles Comments CGA, with SPC 2 Description SPC Distance/Duration 500' Comments sequencing cane and LEs, focus on looking forward rather than down, walking BIG with natural arm swing, thoracic rotation 1 Description forward, side stepping, backward stepping Comments sequencing with SPC PT-OP-T Assessment and Plan Start: 05/06/20 08:34 Freq: Status: Active Protocol: Document 05/18/20 11:08 AMB (Rec: 05/18/20 11:57 AMB [id number]) Physical Therapy Assessment Assessment Summary Assessment Crystal eventually was able to coordinate walking backwards with cane, but will have to recheck her retention. Physical Therapy Plan Next Visit Focus/Plan Next Note Type Treatment Note Next Visit Plan Review fall safety, home modification, assistive device , continue balance/ gait training
--- NOTE | 2020-05-25 15:00 | PT.OTN ---
Current Diagnoses Parkinson's disease (05/25/20) Dysphagia, unspecified (05/25/20) Other abnormalities of gait and mobility (05/25/20) Repeated falls (05/25/20) Physical Therapy Treatment Note PT-OP-A Visit Information Start: 05/06/20 08:34 Freq: Status: Active Protocol: Document 05/25/20 12:45 AMB (Rec: 05/25/20 15:56 AMB [email or web address]) Out-Patient Physical Therapy Visit Information Visit Information Visit Type Treatment Note Visit Start Time 12:45 Visit Stop Time 13:30 Total Visit Minutes 45 Visit Number 6 PT-OP-B Current Condition Start: 05/06/20 08:34 Freq: Status: Active Protocol: Document 05/06/20 14:17 AMB (Rec: 05/06/20 14:35 AMB [id number]) Current Condition History of Current Condition Onset Date years Current Complaints fall history, History of Current Condition 5 falls in the last 6 months. Picking up an m&m from the floor and fell backwards. Has fallen forward multiple time and cut her face- not sure what causes it. Also has noticed reaching for things that are out of reach. Lives in a two story house with a rail, step over step and doesn 't feel like this is an issue, has a walk in shower without grab bars. L shoulder pain with stretching. Difficult to get up from the floor- does have knee pain with kneeling. Prior Treatments and Tests BIG therapy recently have continued on with exercises Treatment Goals Patient/Caregiver Goals Wants to walk with a cane when out in the community. Prior Functional Status Baseline Function- ADL's Modified Independent Baseline Function- Mobility Modified Independent Current Functional Impairments (Reported) Functional Limitations- ADL's Difficulty with floor transfers, gait, no longer driving Personal Factors Other Personal Factors That May Effect Recent cateract surgery pt Therapy/Recovery feels vision isn't the same after that PT-OP-C Subjective Start: 05/06/20 08:34 Freq: Status: Active Protocol: Document 05/25/20 12:45 AMB (Rec: 05/26/20 10:03 AMB [id number]) OP-PT Subjective Patient Comments Patient Comments Pt reports a new fall. She was reaching for a salad bowl and tipped it over, then she fell backwards. PT-OP-E Functional Tests Start: 05/06/20 08:34 Freq: Status: Active Protocol: Document 05/06/20 14:15 AMB (Rec: 05/06/20 15:56 AMB [email or web address]) Functional Tests Dynamic Gait Index (DGI) Score 15 DGI Impairment Rating 20 to <40% Impaired (Score 15- 19) Five Times Sit to Stand Test Score 11 seconds, no UE PT-OP-G Mobility & Gait Start: 05/06/20 08:34 Freq: Status: Active Protocol: Document 05/06/20 14:15 AMB (Rec: 05/06/20 15:56 AMB [email or web address]) OP Gait Assessment Comments Gait Comments Pt can ambulate with arm swing when cued to do so, but naturally very stiff. Horizontal head turns are unsafe. Stair Climbing Evaluation Technique/Endurance Stair Climbing Direction Ascend and Descend Stair Climbing Technique Step Over Step Stair Climbing Set # Repetitions (reps) 4 PT-OP-J Posture/Palpation/Skin Start: 05/06/20 08:34 Freq: Status: Active Protocol: Document 05/06/20 14:15 AMB (Rec: 05/06/20 15:56 AMB [email or web address]) Posture Evaluation Comments Posture Comments scoliosis with left shoulder high PT-OP-M Strength Start: 05/06/20 08:34 Freq: Status: Active Protocol: Document 05/06/20 14:15 AMB (Rec: 05/06/20 15:56 AMB [email or web address]) Hip Strength Hip Manual Muscle Testing Right Flexion (L2) 4 Good Extension (S1) 4 Good Abduction 4 Good Adduction 4 Good Left Flexion (L2) 4 Good Extension (S1) 4 Good Abduction 4 Good Adduction 4 Good Knee Strength Knee Manual Muscle Testing Right Flexion (S2) 5 Normal Extension (L3) 5 Normal Left Flexion (S2) 5 Normal Extension (L3) 5 Normal PT-OP-Q Treatments Start: 05/06/20 08:34 Freq: Status: Active Protocol: Document 05/25/20 12:45 AMB (Rec: 05/26/20 10:02 AMB [id number]) Gait Training Gait Activity 3 Description stepping over hurdles Comments CGA, with SPC 2 Description 4WW Distance/Duration 500' Comments safety with backing up to chair and with turning, going around corners PT-OP-T Assessment and Plan Start: 05/06/20 08:34 Freq: Status: Active Protocol: Document 05/25/20 12:45 AMB (Rec: 05/26/20 10:02 AMB [id number]) Physical Therapy Assessment Assessment Summary Assessment Crystal continues to have difficulty with gait safety due to retention and processing difficulties. Unfortunately we could not get her a 4WW through her insurance, so pt was given handouts on two appropriate 4WW that she could get on [employer] or could go to [employer]. Pt's has not come to any PT appointments, so somewhat concerned about whether or not this will happen. Pt was faster/safer with 4WW, but did have difficulty turning/ backing up with it. Will need to continue to practice with whatever assistive device she chooses to use. Recommended using 4WW in community and main level of house and SPC on other level, as pt does have stairs. Also talked about the possibility of getting two 4WWs that pt could have on different levels of her home. Physical Therapy Plan Next Visit Focus/Plan Next Note Type Treatment Note Next Visit Plan Review fall safety, home modification, assistive device , continue balance/ gait training
--- NOTE | 2020-06-01 16:04 | PT.OTN ---
Current Diagnoses Parkinson's disease (06/01/20) Dysphagia, unspecified (06/01/20) Other abnormalities of gait and mobility (06/01/20) Repeated falls (06/01/20) Physical Therapy Treatment Note PT-OP-A Visit Information Start: 05/06/20 08:34 Freq: Status: Active Protocol: Document 06/01/20 13:30 AMB (Rec: 06/01/20 16:02 AMB [email or web address]) Out-Patient Physical Therapy Visit Information Visit Information Visit Type Treatment Note Visit Start Time 13:30 Visit Stop Time 14:15 Total Visit Minutes 45 Visit Number 7 PT-OP-B Current Condition Start: 05/06/20 08:34 Freq: Status: Active Protocol: Document 05/06/20 14:17 AMB (Rec: 05/06/20 14:35 AMB [id number]) Current Condition History of Current Condition Onset Date years Current Complaints fall history, History of Current Condition 5 falls in the last 6 months. Picking up an m&m from the floor and fell backwards. Has fallen forward multiple time and cut her face- not sure what causes it. Also has noticed reaching for things that are out of reach. Lives in a two story house with a rail, step over step and doesn 't feel like this is an issue, has a walk in shower without grab bars. L shoulder pain with stretching. Difficult to get up from the floor- does have knee pain with kneeling. Prior Treatments and Tests BIG therapy recently have continued on with exercises Treatment Goals Patient/Caregiver Goals Wants to walk with a cane when out in the community. Prior Functional Status Baseline Function- ADL's Modified Independent Baseline Function- Mobility Modified Independent Current Functional Impairments (Reported) Functional Limitations- ADL's Difficulty with floor transfers, gait, no longer driving Personal Factors Other Personal Factors That May Effect Recent cateract surgery pt Therapy/Recovery feels vision isn't the same after that PT-OP-C Subjective Start: 05/06/20 08:34 Freq: Status: Active Protocol: Document 06/01/20 13:30 AMB (Rec: 06/01/20 16:02 AMB [email or web address]) OP-PT Subjective Patient Comments Patient Comments Pt attends pt with 4WW. PT-OP-E Functional Tests Start: 05/06/20 08:34 Freq: Status: Active Protocol: Document 05/06/20 14:15 AMB (Rec: 05/06/20 15:56 AMB [email or web address]) Functional Tests Dynamic Gait Index (DGI) Score 15 DGI Impairment Rating 20 to <40% Impaired (Score 15- 19) Five Times Sit to Stand Test Score 11 seconds, no UE PT-OP-G Mobility & Gait Start: 05/06/20 08:34 Freq: Status: Active Protocol: Document 05/06/20 14:15 AMB (Rec: 05/06/20 15:56 AMB [email or web address]) OP Gait Assessment Comments Gait Comments Pt can ambulate with arm swing when cued to do so, but naturally very stiff. Horizontal head turns are unsafe. Stair Climbing Evaluation Technique/Endurance Stair Climbing Direction Ascend and Descend Stair Climbing Technique Step Over Step Stair Climbing Set # Repetitions (reps) 4 PT-OP-J Posture/Palpation/Skin Start: 05/06/20 08:34 Freq: Status: Active Protocol: Document 05/06/20 14:15 AMB (Rec: 05/06/20 15:56 AMB [email or web address]) Posture Evaluation Comments Posture Comments scoliosis with left shoulder high PT-OP-M Strength Start: 05/06/20 08:34 Freq: Status: Active Protocol: Document 05/06/20 14:15 AMB (Rec: 05/06/20 15:56 AMB [email or web address]) Hip Strength Hip Manual Muscle Testing Right Flexion (L2) 4 Good Extension (S1) 4 Good Abduction 4 Good Adduction 4 Good Left Flexion (L2) 4 Good Extension (S1) 4 Good Abduction 4 Good Adduction 4 Good Knee Strength Knee Manual Muscle Testing Right Flexion (S2) 5 Normal Extension (L3) 5 Normal Left Flexion (S2) 5 Normal Extension (L3) 5 Normal PT-OP-Q Treatments Start: 05/06/20 08:34 Freq: Status: Active Protocol: Document 06/01/20 13:30 AMB (Rec: 06/01/20 16:02 AMB [email or web address]) Gait Training Gait Activity 3 Description stepping over hurdles Comments 4WW 2 Description 4WW Distance/Duration 1,000 Comments safety with backing up to chair and with turning, going around corners- went outside, pt needed [place] for safety when going up hill on grass, PT-OP-T Assessment and Plan Start: 05/06/20 08:34 Freq: Status: Active Protocol: Document 06/01/20 13:57 AMB (Rec: 06/01/20 14:22 AMB [id number]) Physical Therapy Assessment Goals Two Impairment Gait Short Term Goal (STG) Crystal will walk in the community for 6 minutes with a SPC. STG Duration 4 weeks Grease Renderer Goal (LTG) Crystal will ambulate with slow head turns so she could safely cross a parking lot while being aware of oncoming vehicles without loss of balance. LTG Duration 8 weeks One Impairment Fall risk Short Term Goal (STG) Crystal will improve her DGI to 19/24 so that she can show decreased risk of falling. STG Duration 4 weeks Mcfp Goal (LTG) Crystal will safely reach for objects on the floor without loss of balance. LTG Duration 8 weeks Assessment Summary Assessment Pt is wanting to take a break for awhile and return in July. She had a near LOB and needed ModA to recover balance when moving from sit to stand. The chair that she was pushing her knees against moved and she lost her balance posteriorly. She does look better with the 4WW, but she will need to continue to be very mindful given her continued visual deficits. Physical Therapy Plan Next Visit Focus/Plan Next Note Type Progress Note Next Visit Plan Pt will be returning in 1 month, follow up on fall risk.
--- NOTE | 2020-07-18 14:00 | PT.OTN ---
Current Diagnoses Parkinson's disease (07/18/20) Dysphagia, unspecified (07/18/20) Other abnormalities of gait and mobility (07/18/20) Repeated falls (07/18/20) Physical Therapy Treatment Note PT-OP-A Visit Information Start: 05/06/20 08:34 Freq: Status: Active Protocol: Document 07/18/20 13:30 AMB (Rec: 07/20/20 09:59 AMB [id number]) Out-Patient Physical Therapy Visit Information Visit Information Visit Type Progress Note Visit Start Time 13:30 Visit Stop Time 14:15 Total Visit Minutes 45 Visit Number 8 PT-OP-B Current Condition Start: 05/06/20 08:34 Freq: Status: Active Protocol: Document 05/06/20 14:17 AMB (Rec: 05/06/20 14:35 AMB [id number]) Current Condition History of Current Condition Onset Date years Current Complaints fall history, History of Current Condition 5 falls in the last 6 months. Picking up an m&m from the floor and fell backwards. Has fallen forward multiple time and cut her face- not sure what causes it. Also has noticed reaching for things that are out of reach. Lives in a two story house with a rail, step over step and doesn 't feel like this is an issue, has a walk in shower without grab bars. L shoulder pain with stretching. Difficult to get up from the floor- does have knee pain with kneeling. Prior Treatments and Tests BIG therapy recently have continued on with exercises Treatment Goals Patient/Caregiver Goals Wants to walk with a cane when out in the community. Prior Functional Status Baseline Function- ADL's Modified Independent Baseline Function- Mobility Modified Independent Current Functional Impairments (Reported) Functional Limitations- ADL's Difficulty with floor transfers, gait, no longer driving Personal Factors Other Personal Factors That May Effect Recent cateract surgery pt Therapy/Recovery feels vision isn't the same after that PT-OP-C Subjective Start: 05/06/20 08:34 Freq: Status: Active Protocol: Document 07/18/20 13:30 AMB (Rec: 07/18/20 13:40 AMB [id number]) OP-PT Subjective Patient Comments Patient Comments Lost her balance in kitchen, backwards, into crop ranch hand- was backing up away from . Was using the 4WW. Did see eye doctor about 2 weeks ago and is getting prism glasses. PT-OP-E Functional Tests Start: 05/06/20 08:34 Freq: Status: Active Protocol: Document 07/18/20 13:30 AMB (Rec: 07/20/20 09:59 AMB [id number]) Functional Tests Dynamic Gait Index (DGI) Score 16 DGI Impairment Rating 20 to <40% Impaired (Score 15- 19) PT-OP-G Mobility & Gait Start: 05/06/20 08:34 Freq: Status: Active Protocol: Document 05/06/20 14:15 AMB (Rec: 05/06/20 15:56 AMB [email or web address]) OP Gait Assessment Comments Gait Comments Pt can ambulate with arm swing when cued to do so, but naturally very stiff. Horizontal head turns are unsafe. Stair Climbing Evaluation Technique/Endurance Stair Climbing Direction Ascend and Descend Stair Climbing Technique Step Over Step Stair Climbing Set # Repetitions (reps) 4 PT-OP-J Posture/Palpation/Skin Start: 05/06/20 08:34 Freq: Status: Active Protocol: Document 05/06/20 14:15 AMB (Rec: 05/06/20 15:56 AMB [email or web address]) Posture Evaluation Comments Posture Comments scoliosis with left shoulder high PT-OP-M Strength Start: 05/06/20 08:34 Freq: Status: Active Protocol: Document 05/06/20 14:15 AMB (Rec: 05/06/20 15:56 AMB [email or web address]) Hip Strength Hip Manual Muscle Testing Right Flexion (L2) 4 Good Extension (S1) 4 Good Abduction 4 Good Adduction 4 Good Left Flexion (L2) 4 Good Extension (S1) 4 Good Abduction 4 Good Adduction 4 Good Knee Strength Knee Manual Muscle Testing Right Flexion (S2) 5 Normal Extension (L3) 5 Normal Left Flexion (S2) 5 Normal Extension (L3) 5 Normal PT-OP-Q Treatments Start: 05/06/20 08:34 Freq: Status: Active Protocol: Document 07/18/20 13:30 AMB (Rec: 07/20/20 10:14 AMB [email or web address]) Therapeutic Exercises Other Exercises 1 Other Exercise Name yoga routine Comments downward dog, susanne pose, quadruped UE ext, cat cow Gait Training Gait Activity 3 Description stepping over hurdles Comments 4WW 1 Description turning, walking with head turns with 4WW Comments keeping 4WW close especially with turning PT-OP-T Assessment and Plan Start: 05/06/20 08:34 Freq: Status: Active Protocol: Document 07/18/20 13:30 AMB (Rec: 07/20/20 09:59 AMB [id number]) Physical Therapy Assessment Goals Two Impairment Gait Short Term Goal (STG) Crystal will walk in the community for 6 minutes with a 4WW-- Crystal is using a 4WW STG Duration 4 weeks Stevedoring Supervisor Goal (LTG) Crystal will ambulate with slow head turns so she could safely cross a parking lot while being aware of oncoming vehicles without loss of balance. LTG Duration 8 weeks One Impairment Fall risk Short Term Goal (STG) Crystal will improve her DGI to so that she can show decreased risk of falling.-- - 1 point improvement STG Duration 4 weeks Stevedoring Supervisor Goal (LTG) Crystal will safely reach for objects on the floor without loss of balance.-- Crystal's vision makes this challenging LTG Duration 8 weeks Assessment Summary Assessment Crystal returns to PT after a 6 week break due to her request. She has had multiple falls over that time. She continues to be a fall risk, and has stopped doing her exercises from [facility] BIG- she did do some yoga as she previously liked that, but had to reiterate that she needs to hang on to a sturdy piece of furniture when moving from standing to floor for safety. She will benefit from continued PT to reduce her fall risk, although this is challenging considering her vision and processing complications. Physical Therapy Plan Frequency and Duration Frequency of Treatment 2x/Week Duration of Treatment 8 weeks Plan of Care Start Date 07/19/20 Plan of Care End Date 09/13/20 Therapeutic Interventions Therapeutic Interventions Balance Training,Gait Training ,Home Exercise Program,Manual Therapy,Neuromuscular Re- education,Self-Care/Home Management,Therapeutic Activities,Therapeutic Exercises Next Visit Focus/Plan Next Note Type Treatment Note Next Visit Plan Progress gait training, work on turning, fall reduction.
--- NOTE | 2020-07-18 14:30 | PT.OPPOC ---
Physical, Occupational & Speech Therapy At [facility] Current Diagnoses Parkinson's disease (07/18/20) Dysphagia, unspecified (07/18/20) Other abnormalities of gait and mobility (07/18/20) Repeated falls (07/18/20) Visit Care Team Role Provider Type Helen Burroughs MD Attending Provider Physician Family Provider Primary Care Provider Referring Provider Specialty: Internal Medicine Address: [address] [place] [address], [id number] Email: [email or web address] Plan Of Care PT-OP-T Assessment and Plan Start: 05/06/20 08:34 Freq: Status: Active Protocol: Document 07/18/20 13:30 AMB (Rec: 07/20/20 09:59 AMB [id number]) Physical Therapy Assessment Goals Two Impairment Gait Short Term Goal (STG) Crystal will walk in the community for 6 minutes with a 4WW-- Crystal is using a 4WW STG Duration 4 weeks Flight Service Specialist Goal (LTG) Crystal will ambulate with slow head turns so she could safely cross a parking lot while being aware of oncoming vehicles without loss of balance. LTG Duration 8 weeks One Impairment Fall risk Short Term Goal (STG) Crystal will improve her DGI to 19/24 so that she can show decreased risk of falling.-- 1624- 1 point improvement STG Duration 4 weeks Flight Service Specialist Goal (LTG) Crystal will safely reach for objects on the floor without loss of balance.-- Crystal's vision makes this challenging LTG Duration 8 weeks Assessment Summary Assessment Crystal returns to PT after a 6 week break due to her request. She has had multiple falls over that time. She continues to be a fall risk, and has stopped doing her exercises from [employer]- she did do some yoga as she previously liked that, but had to reiterate that she needs to hang on to a sturdy piece of furniture when moving from standing to floor for safety. She will benefit from continued PT to reduce her fall risk, although this is challenging considering her vision and processing complications. Physical Therapy Plan Frequency and Duration Frequency of Treatment 2x/Week Duration of Treatment 8 weeks Plan of Care Start Date 07/19/20 Plan of Care End Date 09/13/20 Therapeutic Interventions Therapeutic Interventions Balance Training,Gait Training ,Home Exercise Program,Manual Therapy,Neuromuscular Re- education,Self-Care/Home Management,Therapeutic Activities,Therapeutic Exercises Next Visit Focus/Plan Next Note Type Treatment Note Next Visit Plan Progress gait training, work on turning, fall reduction. Plan of Care Dates Plan of Care Start Date 07/19/20 Plan of Care End Date 09/13/20 Electronically Signed by: Maribel Fernández, PT 07/20/20 1011 Please Sign and Return: I have reviewed this Plan of Care and certify that the skilled therapy services above are required to meet the patient?s needs. Physician Signature Date Printed Name and Credentials Clinical Instructor Signature Printed Name and Credentials
--- NOTE | 2020-07-26 16:00 | PT.OTN ---
Current Diagnoses Parkinson's disease (07/26/20) Dysphagia, unspecified (07/26/20) Other abnormalities of gait and mobility (07/26/20) Repeated falls (07/26/20) Physical Therapy Treatment Note PT-OP-A Visit Information Start: 05/06/20 08:34 Freq: Status: Active Protocol: Document 07/26/20 14:15 AMB (Rec: 07/31/20 13:32 AMB [email or web address]) Out-Patient Physical Therapy Visit Information Visit Information Visit Type Treatment Note Visit Note 07/17 Visit Start Time 14:15 Visit Stop Time 15:00 Total Visit Minutes 45 Visit Number 9 PT-OP-B Current Condition Start: 05/06/20 08:34 Freq: Status: Active Protocol: Document 05/06/20 14:17 AMB (Rec: 05/06/20 14:35 AMB [id number]) Current Condition History of Current Condition Onset Date years Current Complaints fall history, History of Current Condition 5 falls in the last 6 months. Picking up an m&m from the floor and fell backwards. Has fallen forward multiple time and cut her face- not sure what causes it. Also has noticed reaching for things that are out of reach. Lives in a two story house with a rail, step over step and doesn 't feel like this is an issue, has a walk in shower without grab bars. L shoulder pain with stretching. Difficult to get up from the floor- does have knee pain with kneeling. Prior Treatments and Tests BIG therapy recently have continued on with exercises Treatment Goals Patient/Caregiver Goals Wants to walk with a cane when out in the community. Prior Functional Status Baseline Function- ADL's Modified Independent Baseline Function- Mobility Modified Independent Current Functional Impairments (Reported) Functional Limitations- ADL's Difficulty with floor transfers, gait, no longer driving Personal Factors Other Personal Factors That May Effect Recent cateract surgery pt Therapy/Recovery feels vision isn't the same after that PT-OP-C Subjective Start: 05/06/20 08:34 Freq: Status: Active Protocol: Document 07/26/20 14:15 AMB (Rec: 07/31/20 13:32 AMB [email or web address]) OP-PT Subjective Patient Comments Patient Comments Pt reports she was not able to do the bird dog exercise, but was able to do other yoga exercises on the floor. PT-OP-E Functional Tests Start: 05/06/20 08:34 Freq: Status: Active Protocol: Document 07/18/20 13:30 AMB (Rec: 07/20/20 09:59 AMB [id number]) Functional Tests Dynamic Gait Index (DGI) Score 16 DGI Impairment Rating 20 to <40% Impaired (Score 15- 19) PT-OP-G Mobility & Gait Start: 05/06/20 08:34 Freq: Status: Active Protocol: Document 05/06/20 14:15 AMB (Rec: 05/06/20 15:56 AMB [email or web address]) OP Gait Assessment Comments Gait Comments Pt can ambulate with arm swing when cued to do so, but naturally very stiff. Horizontal head turns are unsafe. Stair Climbing Evaluation Technique/Endurance Stair Climbing Direction Ascend and Descend Stair Climbing Technique Step Over Step Stair Climbing Set # Repetitions (reps) 4 PT-OP-J Posture/Palpation/Skin Start: 05/06/20 08:34 Freq: Status: Active Protocol: Document 05/06/20 14:15 AMB (Rec: 05/06/20 15:56 AMB [email or web address]) Posture Evaluation Comments Posture Comments scoliosis with left shoulder high PT-OP-M Strength Start: 05/06/20 08:34 Freq: Status: Active Protocol: Document 05/06/20 14:15 AMB (Rec: 05/06/20 15:56 AMB [email or web address]) Hip Strength Hip Manual Muscle Testing Right Flexion (L2) 4 Good Extension (S1) 4 Good Abduction 4 Good Adduction 4 Good Left Flexion (L2) 4 Good Extension (S1) 4 Good Abduction 4 Good Adduction 4 Good Knee Strength Knee Manual Muscle Testing Right Flexion (S2) 5 Normal Extension (L3) 5 Normal Left Flexion (S2) 5 Normal Extension (L3) 5 Normal PT-OP-Q Treatments Start: 05/06/20 08:34 Freq: Status: Active Protocol: Document 07/26/20 14:15 AMB (Rec: 08/01/20 10:46 AMB [email or web address]) Therapeutic Activity Therapeutic Activity 4 Name car transfer Comments Getting out of the way of the door (backing up) while shutting it, practiced shutting door avoiding over reaching, moving feet, focus on not rushing. 3 Name laundry Comments Pt has front kiln car unloader that she was having to reach in and reaching is a common cause of loss of balance, currently using a photo mask processor 2 Name gardening Comments problem solving floor tx as well as mobility in garden- pt most concerned about walking over uneven terrain 1 Name bed mobility Comments Pt able to roll I on mat table , but more difficult with soft mattress PT-OP-T Assessment and Plan Start: 05/06/20 08:34 Freq: Status: Active Protocol: Document 07/26/20 14:15 AMB (Rec: 08/01/20 10:46 AMB [email or web address]) Physical Therapy Assessment Assessment Summary Assessment Crystal continues to be a fall risk, spent most time on car transfer as well as counseling pt to try not to let herself feel rushed by her .
--- NOTE | 2020-08-02 10:11 | PT.OTN ---
Current Diagnoses Parkinson's disease (08/02/20) Dysphagia, unspecified (08/02/20) Other abnormalities of gait and mobility (08/02/20) Repeated falls (08/02/20) Physical Therapy Treatment Note PT-OP-A Visit Information Start: 05/06/20 08:34 Freq: Status: Active Protocol: Document 08/02/20 09:00 AMB (Rec: 08/02/20 10:11 AMB [id number]) Out-Patient Physical Therapy Visit Information Visit Information Visit Type Treatment Note Visit Note 08/17 Visit Start Time 09:00 Visit Stop Time 09:45 Total Visit Minutes 45 Visit Number 10 PT-OP-B Current Condition Start: 05/06/20 08:34 Freq: Status: Active Protocol: Document 05/06/20 14:17 AMB (Rec: 05/06/20 14:35 AMB [id number]) Current Condition History of Current Condition Onset Date years Current Complaints fall history, History of Current Condition 5 falls in the last 6 months. Picking up an m&m from the floor and fell backwards. Has fallen forward multiple time and cut her face- not sure what causes it. Also has noticed reaching for things that are out of reach. Lives in a two story house with a rail, step over step and doesn 't feel like this is an issue, has a walk in shower without grab bars. L shoulder pain with stretching. Difficult to get up from the floor- does have knee pain with kneeling. Prior Treatments and Tests BIG therapy recently have continued on with exercises Treatment Goals Patient/Caregiver Goals Wants to walk with a cane when out in the community. Prior Functional Status Baseline Function- ADL's Modified Independent Baseline Function- Mobility Modified Independent Current Functional Impairments (Reported) Functional Limitations- ADL's Difficulty with floor transfers, gait, no longer driving Personal Factors Other Personal Factors That May Effect Recent cateract surgery pt Therapy/Recovery feels vision isn't the same after that PT-OP-C Subjective Start: 05/06/20 08:34 Freq: Status: Active Protocol: Document 08/02/20 09:00 AMB (Rec: 08/02/20 10:11 AMB [id number]) OP-PT Subjective Patient Comments Patient Comments Pt reports fall yesterday, fell lateraly when getting up from stool in kitchen. States no injuries. PT-OP-E Functional Tests Start: 05/06/20 08:34 Freq: Status: Active Protocol: Document 07/18/20 13:30 AMB (Rec: 07/20/20 09:59 AMB [id number]) Functional Tests Dynamic Gait Index (DGI) Score 16 DGI Impairment Rating 20 to <40% Impaired (Score 15- 19) PT-OP-G Mobility & Gait Start: 05/06/20 08:34 Freq: Status: Active Protocol: Document 05/06/20 14:15 AMB (Rec: 05/06/20 15:56 AMB [email or web address]) OP Gait Assessment Comments Gait Comments Pt can ambulate with arm swing when cued to do so, but naturally very stiff. Horizontal head turns are unsafe. Stair Climbing Evaluation Technique/Endurance Stair Climbing Direction Ascend and Descend Stair Climbing Technique Step Over Step Stair Climbing Set # Repetitions (reps) 4 PT-OP-J Posture/Palpation/Skin Start: 05/06/20 08:34 Freq: Status: Active Protocol: Document 05/06/20 14:15 AMB (Rec: 05/06/20 15:56 AMB [email or web address]) Posture Evaluation Comments Posture Comments scoliosis with left shoulder high PT-OP-M Strength Start: 05/06/20 08:34 Freq: Status: Active Protocol: Document 05/06/20 14:15 AMB (Rec: 05/06/20 15:56 AMB [email or web address]) Hip Strength Hip Manual Muscle Testing Right Flexion (L2) 4 Good Extension (S1) 4 Good Abduction 4 Good Adduction 4 Good Left Flexion (L2) 4 Good Extension (S1) 4 Good Abduction 4 Good Adduction 4 Good Knee Strength Knee Manual Muscle Testing Right Flexion (S2) 5 Normal Extension (L3) 5 Normal Left Flexion (S2) 5 Normal Extension (L3) 5 Normal PT-OP-Q Treatments Start: 05/06/20 08:34 Freq: Status: Active Protocol: Document 08/02/20 09:00 AMB (Rec: 08/02/20 10:11 AMB [id number]) Therapeutic Exercises Standing Exercises 1 Standing Exercise Name sit to stand Reps/Minutes 15 Comments vc avoid hitting back of knees on chair Neuro Re-Education Treatment Balance Activities 1 Details corner balance exercises Comments NBOS: vertical/horizontal HT. Stride stance: EC, EO weightshifts PT-OP-T Assessment and Plan Start: 05/06/20 08:34 Freq: Status: Active Protocol: Document 08/02/20 09:00 AMB (Rec: 08/02/20 10:11 AMB [id number]) Physical Therapy Assessment Goals Two Impairment Gait Short Term Goal (STG) Crystal will walk in the community for 6 minutes with a 4WW-- Crystal is using a 4WW STG Duration 4 weeks Usp Goal (LTG) Crystal will ambulate with slow head turns so she could safely cross a parking lot while being aware of oncoming vehicles without loss of balance. LTG Duration 8 weeks One Impairment Fall risk Short Term Goal (STG) Crystal will improve her DGI to so that she can show decreased risk of falling.-- - 1 point improvement STG Duration 4 weeks Usp Goal (LTG) Crystal will safely reach for objects on the floor without loss of balance.-- Crystal's vision makes this challenging LTG Duration 8 weeks Assessment Summary Assessment Crystal needed extensive cues and written instruction for new HEP, but should be safe doing it at home, will reassess next visit. Discussed sit to stand safety after most recent fall. Physical Therapy Plan Next Visit Focus/Plan Next Note Type Treatment Note Next Visit Plan Progress gait training, work on turning, fall reduction, reasess HEP: corner balance
--- NOTE | 2020-08-08 11:54 | PT.OTN ---
Current Diagnoses Parkinson's disease (08/08/20) Dysphagia, unspecified (08/08/20) Other abnormalities of gait and mobility (08/08/20) Repeated falls (08/08/20) Physical Therapy Treatment Note PT-OP-A Visit Information Start: 05/06/20 08:34 Freq: Status: Active Protocol: Document 08/08/20 09:02 AMB (Rec: 08/08/20 09:08 AMB [id number]) Out-Patient Physical Therapy Visit Information Visit Information Visit Type Treatment Note Visit Note 09/14 Visit Start Time 09:00 Visit Stop Time 09:45 Total Visit Minutes 45 Visit Number 11 PT-OP-B Current Condition Start: 05/06/20 08:34 Freq: Status: Active Protocol: Document 05/06/20 14:17 AMB (Rec: 05/06/20 14:35 AMB [id number]) Current Condition History of Current Condition Onset Date years Current Complaints fall history, History of Current Condition 5 falls in the last 6 months. Picking up an m&m from the floor and fell backwards. Has fallen forward multiple time and cut her face- not sure what causes it. Also has noticed reaching for things that are out of reach. Lives in a two story house with a rail, step over step and doesn 't feel like this is an issue, has a walk in shower without grab bars. L shoulder pain with stretching. Difficult to get up from the floor- does have knee pain with kneeling. Prior Treatments and Tests BIG therapy recently have continued on with exercises Treatment Goals Patient/Caregiver Goals Wants to walk with a cane when out in the community. Prior Functional Status Baseline Function- ADL's Modified Independent Baseline Function- Mobility Modified Independent Current Functional Impairments (Reported) Functional Limitations- ADL's Difficulty with floor transfers, gait, no longer driving Personal Factors Other Personal Factors That May Effect Recent cateract surgery pt Therapy/Recovery feels vision isn't the same after that PT-OP-C Subjective Start: 05/06/20 08:34 Freq: Status: Active Protocol: Document 08/08/20 09:02 AMB (Rec: 08/08/20 09:08 AMB [id number]) OP-PT Subjective Patient Comments Patient Comments Pt reports 2 more falls, one where she was holding a dog while he was getting a shot, and the other while she was pushing a stool in, it got caught on a rug. PT-OP-E Functional Tests Start: 05/06/20 08:34 Freq: Status: Active Protocol: Document 07/18/20 13:30 AMB (Rec: 07/20/20 09:59 AMB [id number]) Functional Tests Dynamic Gait Index (DGI) Score 16 DGI Impairment Rating 20 to <40% Impaired (Score 15- 19) PT-OP-G Mobility & Gait Start: 05/06/20 08:34 Freq: Status: Active Protocol: Document 05/06/20 14:15 AMB (Rec: 05/06/20 15:56 AMB [email or web address]) OP Gait Assessment Comments Gait Comments Pt can ambulate with arm swing when cued to do so, but naturally very stiff. Horizontal head turns are unsafe. Stair Climbing Evaluation Technique/Endurance Stair Climbing Direction Ascend and Descend Stair Climbing Technique Step Over Step Stair Climbing Set # Repetitions (reps) 4 PT-OP-J Posture/Palpation/Skin Start: 05/06/20 08:34 Freq: Status: Active Protocol: Document 05/06/20 14:15 AMB (Rec: 05/06/20 15:56 AMB [email or web address]) Posture Evaluation Comments Posture Comments scoliosis with left shoulder high PT-OP-M Strength Start: 05/06/20 08:34 Freq: Status: Active Protocol: Document 05/06/20 14:15 AMB (Rec: 05/06/20 15:56 AMB [email or web address]) Hip Strength Hip Manual Muscle Testing Right Flexion (L2) 4 Good Extension (S1) 4 Good Abduction 4 Good Adduction 4 Good Left Flexion (L2) 4 Good Extension (S1) 4 Good Abduction 4 Good Adduction 4 Good Knee Strength Knee Manual Muscle Testing Right Flexion (S2) 5 Normal Extension (L3) 5 Normal Left Flexion (S2) 5 Normal Extension (L3) 5 Normal PT-OP-Q Treatments Start: 05/06/20 08:34 Freq: Status: Active Protocol: Document 08/08/20 09:00 AMB (Rec: 08/08/20 11:53 AMB [email or web address]) Gym Equipment Shuttle Balance 1 Details BLUE Comments NBOS EC WBOS HT EO Neuro Re-Education Treatment Balance Activities 1 Details corner balance exercises Comments NBOS: vertical/horizontal HT. Stride stance: EC, EO weightshifts Other Activities 2 [address] walking with head turns Comments SPC vertical and horizontal PT-OP-T Assessment and Plan Start: 05/06/20 08:34 Freq: Status: Active Protocol: Document 08/08/20 09:00 AMB (Rec: 08/08/20 11:53 AMB [email or web address]) Physical Therapy Assessment Assessment Summary Assessment Crystal was semi resistant to changing the way she is giving her dog shots, even though she has fallen doing it. Explained that it is important to change high risk activities so they are less high risk because there is only so much we can do with strengthening and improving reaction time. Physical Therapy Plan Next Visit Focus/Plan Next Note Type Treatment Note Next Visit Plan Progress gait training, work on turning, fall reduction, reasess HEP: corner balance
--- NOTE | 2020-08-15 10:43 | PT.OTN ---
Current Diagnoses Parkinson's disease (08/15/20) Dysphagia, unspecified (08/15/20) Other abnormalities of gait and mobility (08/15/20) Repeated falls (08/15/20) Physical Therapy Treatment Note PT-OP-A Visit Information Start: 05/06/20 08:34 Freq: Status: Active Protocol: Document 08/15/20 09:00 AMB (Rec: 08/15/20 10:43 AMB [id number]) Out-Patient Physical Therapy Visit Information Visit Information Visit Type Treatment Note Visit Start Time 09:00 Visit Stop Time 09:45 Total Visit Minutes 45 Visit Number 12 PT-OP-B Current Condition Start: 05/06/20 08:34 Freq: Status: Active Protocol: Document 05/06/20 14:17 AMB (Rec: 05/06/20 14:35 AMB [id number]) Current Condition History of Current Condition Onset Date years Current Complaints fall history, History of Current Condition 5 falls in the last 6 months. Picking up an m&m from the floor and fell backwards. Has fallen forward multiple time and cut her face- not sure what causes it. Also has noticed reaching for things that are out of reach. Lives in a two story house with a rail, step over step and doesn 't feel like this is an issue, has a walk in shower without grab bars. L shoulder pain with stretching. Difficult to get up from the floor- does have knee pain with kneeling. Prior Treatments and Tests BIG therapy recently have continued on with exercises Treatment Goals Patient/Caregiver Goals Wants to walk with a cane when out in the community. Prior Functional Status Baseline Function- ADL's Modified Independent Baseline Function- Mobility Modified Independent Current Functional Impairments (Reported) Functional Limitations- ADL's Difficulty with floor transfers, gait, no longer driving Personal Factors Other Personal Factors That May Effect Recent cateract surgery pt Therapy/Recovery feels vision isn't the same after that PT-OP-C Subjective Start: 05/06/20 08:34 Freq: Status: Active Protocol: Document 08/15/20 09:00 AMB (Rec: 08/15/20 10:43 AMB [id number]) OP-PT Subjective Patient Comments Patient Comments Pt reports 0 falls in the last week PT-OP-E Functional Tests Start: 05/06/20 08:34 Freq: Status: Active Protocol: Document 07/18/20 13:30 AMB (Rec: 07/20/20 09:59 AMB [id number]) Functional Tests Dynamic Gait Index (DGI) Score 16 DGI Impairment Rating 20 to <40% Impaired (Score 15- 19) PT-OP-G Mobility & Gait Start: 05/06/20 08:34 Freq: Status: Active Protocol: Document 05/06/20 14:15 AMB (Rec: 05/06/20 15:56 AMB [email or web address]) OP Gait Assessment Comments Gait Comments Pt can ambulate with arm swing when cued to do so, but naturally very stiff. Horizontal head turns are unsafe. Stair Climbing Evaluation Technique/Endurance Stair Climbing Direction Ascend and Descend Stair Climbing Technique Step Over Step Stair Climbing Set # Repetitions (reps) 4 PT-OP-J Posture/Palpation/Skin Start: 05/06/20 08:34 Freq: Status: Active Protocol: Document 05/06/20 14:15 AMB (Rec: 05/06/20 15:56 AMB [email or web address]) Posture Evaluation Comments Posture Comments scoliosis with left shoulder high PT-OP-M Strength Start: 05/06/20 08:34 Freq: Status: Active Protocol: Document 05/06/20 14:15 AMB (Rec: 05/06/20 15:56 AMB [email or web address]) Hip Strength Hip Manual Muscle Testing Right Flexion (L2) 4 Good Extension (S1) 4 Good Abduction 4 Good Adduction 4 Good Left Flexion (L2) 4 Good Extension (S1) 4 Good Abduction 4 Good Adduction 4 Good Knee Strength Knee Manual Muscle Testing Right Flexion (S2) 5 Normal Extension (L3) 5 Normal Left Flexion (S2) 5 Normal Extension (L3) 5 Normal PT-OP-Q Treatments Start: 05/06/20 08:34 Freq: Status: Active Protocol: Document 08/15/20 09:00 AMB (Rec: 08/15/20 10:43 AMB [id number]) Therapeutic Exercises Standing Exercises 3 Standing Exercise Name counter top pushups- HEP Reps/Minutes 10 2 Standing Exercise Name rows #2 tband- HEP Reps/Minutes 15 Therapeutic Activity Therapeutic Activity 4 Name car transfer Comments backing up, pushing door, decided safest was to backup and then sit down on seat and then move legs in- will need to follow up on follow through , as this is a new way of getting into the car. PT-OP-T Assessment and Plan Start: 05/06/20 08:34 Freq: Status: Active Protocol: Document 08/15/20 09:00 AMB (Rec: 08/15/20 10:43 AMB [id number]) Physical Therapy Assessment Assessment Summary Assessment Crystal is going back to eye doctor (has prisms in R lens for sunglasses but not regular glasses). Hoping improvement in vision will help balance. Pt is concerned about upper body strength with closing the large SUV door, hence new HEP exercises. T band rows are a bit of a balance exercise for her. Follow up on scheduling next visit. Physical Therapy Plan Next Visit Focus/Plan Next Note Type Treatment Note Next Visit Plan Progress gait training, work on turning, fall reduction, reasess HEP: countertop push up and t band rows
--- NOTE | 2020-08-22 12:35 | PT.OTN ---
Current Diagnoses Parkinson's disease (08/22/20) Dysphagia, unspecified (08/22/20) Other abnormalities of gait and mobility (08/22/20) Repeated falls (08/22/20) Physical Therapy Treatment Note PT-OP-A Visit Information Start: 05/06/20 08:34 Freq: Status: Active Protocol: Document 08/22/20 09:00 AMB (Rec: 08/22/20 12:35 AMB [email or web address]) Out-Patient Physical Therapy Visit Information Visit Information Visit Type Treatment Note Visit Note 11/14 Visit Start Time 09:00 Visit Stop Time 09:45 Total Visit Minutes 45 Visit Number 13 PT-OP-B Current Condition Start: 05/06/20 08:34 Freq: Status: Active Protocol: Document 05/06/20 14:17 AMB (Rec: 05/06/20 14:35 AMB [id number]) Current Condition History of Current Condition Onset Date years Current Complaints fall history, History of Current Condition 5 falls in the last 6 months. Picking up an m&m from the floor and fell backwards. Has fallen forward multiple time and cut her face- not sure what causes it. Also has noticed reaching for things that are out of reach. Lives in a two story house with a rail, step over step and doesn 't feel like this is an issue, has a walk in shower without grab bars. L shoulder pain with stretching. Difficult to get up from the floor- does have knee pain with kneeling. Prior Treatments and Tests BIG therapy recently have continued on with exercises Treatment Goals Patient/Caregiver Goals Wants to walk with a cane when out in the community. Prior Functional Status Baseline Function- ADL's Modified Independent Baseline Function- Mobility Modified Independent Current Functional Impairments (Reported) Functional Limitations- ADL's Difficulty with floor transfers, gait, no longer driving Personal Factors Other Personal Factors That May Effect Recent cateract surgery pt Therapy/Recovery feels vision isn't the same after that PT-OP-C Subjective Start: 05/06/20 08:34 Freq: Status: Active Protocol: Document 08/22/20 09:00 AMB (Rec: 08/22/20 12:35 AMB [email or web address]) OP-PT Subjective Patient Comments Patient Comments Pt reports 0 falls in the last week, the pushups didn't realy work, but the band exercise did. PT-OP-E Functional Tests Start: 05/06/20 08:34 Freq: Status: Active Protocol: Document 07/18/20 13:30 AMB (Rec: 07/20/20 09:59 AMB [id number]) Functional Tests Dynamic Gait Index (DGI) Score 16 DGI Impairment Rating 20 to <40% Impaired (Score 15- 19) PT-OP-G Mobility & Gait Start: 05/06/20 08:34 Freq: Status: Active Protocol: Document 05/06/20 14:15 AMB (Rec: 05/06/20 15:56 AMB [email or web address]) OP Gait Assessment Comments Gait Comments Pt can ambulate with arm swing when cued to do so, but naturally very stiff. Horizontal head turns are unsafe. Stair Climbing Evaluation Technique/Endurance Stair Climbing Direction Ascend and Descend Stair Climbing Technique Step Over Step Stair Climbing Set # Repetitions (reps) 4 PT-OP-J Posture/Palpation/Skin Start: 05/06/20 08:34 Freq: Status: Active Protocol: Document 05/06/20 14:15 AMB (Rec: 05/06/20 15:56 AMB [email or web address]) Posture Evaluation Comments Posture Comments scoliosis with left shoulder high PT-OP-M Strength Start: 05/06/20 08:34 Freq: Status: Active Protocol: Document 05/06/20 14:15 AMB (Rec: 05/06/20 15:56 AMB [email or web address]) Hip Strength Hip Manual Muscle Testing Right Flexion (L2) 4 Good Extension (S1) 4 Good Abduction 4 Good Adduction 4 Good Left Flexion (L2) 4 Good Extension (S1) 4 Good Abduction 4 Good Adduction 4 Good Knee Strength Knee Manual Muscle Testing Right Flexion (S2) 5 Normal Extension (L3) 5 Normal Left Flexion (S2) 5 Normal Extension (L3) 5 Normal PT-OP-Q Treatments Start: 05/06/20 08:34 Freq: Status: Active Protocol: Document 08/22/20 09:00 AMB (Rec: 08/22/20 12:35 AMB [email or web address]) Therapeutic Exercises Standing Exercises 2 Standing Exercise Name rows #2 tband- HEP Reps/Minutes 15 1 Standing Exercise Name t band tricep extension-HEP Reps/Minutes 15 Gait Training Gait Activity 4 Description walking: backing up and turning Comments wiht 4WW 3 Description 4WW Distance/Duration 350ft Comments CGA- focus on looking not straight down at feet to allow time to react to obstacles PT-OP-T Assessment and Plan Start: 05/06/20 08:34 Freq: Status: Active Protocol: Document 08/22/20 09:00 AMB (Rec: 08/22/20 12:35 AMB [email or web address]) Physical Therapy Assessment Assessment Summary Assessment Crystal is doing better with her falls, but her vision still limits her ability to be safe in a complex environment, does better when practicing with multiple reps, but ability to keep improvement over extended time frame is still challenging, difficult time remembering multiple cues, trying to keep cueing simple to aid with remembering. Physical Therapy Plan Next Visit Focus/Plan Next Note Type Treatment Note Next Visit Plan Progress gait training, work on turning, fall reduction, reasess HEP: corner balance, t band rows, t band tricep extension
--- NOTE | 2020-08-29 10:25 | PT.OPPOC ---
Physical, Occupational & Speech Therapy At [facility] Current Diagnoses Parkinson's disease (08/29/20) Dysphagia, unspecified (08/29/20) Other abnormalities of gait and mobility (08/29/20) Repeated falls (08/29/20) Visit Care Team Role Provider Type Helen Burroughs MD Attending Provider Physician Family Provider Primary Care Provider Referring Provider Specialty: Internal Medicine Address: [address] [place] [address], [id number] Email: [email or web address] Plan Of Care PT-OP-T Assessment and Plan Start: 05/06/20 08:34 Freq: Status: Active Protocol: Document 08/29/20 09:00 AMB (Rec: 09/03/20 10:24 AMB [email or web address]) Physical Therapy Assessment Other Concerns Fall Risk yes Goals Two Impairment Gait Short Term Goal (STG) Crystal will walk in the community for 6 minutes with a 4WW--08/29: using SPC due to clavicle fx and in a sling STG Duration 4 weeks Shelter Goal (LTG) Crystal will ambulate with slow head turns so she could safely cross a parking lot while being aware of oncoming vehicles without loss of balance. LTG Duration 8 weeks One Impairment Fall risk Short Term Goal (STG) Crystal will improve her DGI to 19/24 so that she can show decreased risk of falling.-- - 1 point improvement STG Duration 4 weeks Banjo Repairer Goal (LTG) Crystal will safely reach for objects on the floor without loss of balance.-- Crystal's vision makes this challenging LTG Duration 8 weeks Assessment Summary Assessment Crystal recently fell while closing a door. She fractured her clavicle, and is wearing a sling. She was seen in the ED and has an apt with her PCP in 2 days. She is more unstable now because she is no longer able to use her 4WW, but her is helping more around the house, with dressing, bathing, etc. Her vision continues to make her balance more precarious, she was not wearing her glasses at the time of the fall, as they are at the eye doctors, getting a prism put in them. Overall today, she was slower, but that is appropriate considering the SPC and her recent fall. She would benefit from continued physical therapy to manage her fall risk, although she continues to be a very high fall risk and she will likely need to make behavioral changes to manage this (doing fewer things that challenge her balance) but she does at times feel like she needs to crawley, makes poor decisions about challenging balance scenarios. Discussed this with Speech therapist, who did evaluate her cognition. She also found vision/spatial awareness impaired. Physical therapy will continue to focus on managing fall risk. Physical Therapy Plan Frequency and Duration Frequency of Treatment 1x/Week Duration of Treatment 8 weeks Plan of Care Start Date 08/29/20 Plan of Care End Date 10/24/20 Therapeutic Interventions Therapeutic Interventions Balance Training,Gait Training ,Home Exercise Program,Manual Therapy,Neuromuscular Re- education,Self-Care/Home Management,Therapeutic Activities,Therapeutic Exercises Next Visit Focus/Plan Next Note Type Treatment Note Next Visit Plan Progress gait training, work on turning, reaching, fall risk reduction, manage SPC while pt needs to use sling Plan of Care Dates Plan of Care Start Date 08/29/20 Plan of Care End Date 10/24/20 Electronically Signed by: Maribel Fernández, PT 09/03/20 1027 Please Sign and Return: I have reviewed this Plan of Care and certify that the skilled therapy services above are required to meet the patient?s needs. Physician Signature Date Printed Name and Credentials Clinical Instructor Signature Printed Name and Credentials
--- NOTE | 2020-08-29 10:25 | PT.OTN ---
Current Diagnoses Parkinson's disease (08/29/20) Dysphagia, unspecified (08/29/20) Other abnormalities of gait and mobility (08/29/20) Repeated falls (08/29/20) Physical Therapy Treatment Note PT-OP-A Visit Information Start: 05/06/20 08:34 Freq: Status: Active Protocol: Document 08/29/20 09:00 AMB (Rec: 08/29/20 10:05 AMB [id number]) Out-Patient Physical Therapy Visit Information Visit Information Visit Type Progress Note Visit Note 010 Visit Start Time 09:00 Visit Stop Time 09:45 Total Visit Minutes 45 Visit Number 14 PT-OP-B Current Condition Start: 05/06/20 08:34 Freq: Status: Active Protocol: Document 05/06/20 14:17 AMB (Rec: 05/06/20 14:35 AMB [id number]) Current Condition History of Current Condition Onset Date years Current Complaints fall history, History of Current Condition 5 falls in the last 6 months. Picking up an m&m from the floor and fell backwards. Has fallen forward multiple time and cut her face- not sure what causes it. Also has noticed reaching for things that are out of reach. Lives in a two story house with a rail, step over step and doesn 't feel like this is an issue, has a walk in shower without grab bars. L shoulder pain with stretching. Difficult to get up from the floor- does have knee pain with kneeling. Prior Treatments and Tests BIG therapy recently have continued on with exercises Treatment Goals Patient/Caregiver Goals Wants to walk with a cane when out in the community. Prior Functional Status Baseline Function- ADL's Modified Independent Baseline Function- Mobility Modified Independent Current Functional Impairments (Reported) Functional Limitations- ADL's Difficulty with floor transfers, gait, no longer driving Personal Factors Other Personal Factors That May Effect Recent cateract surgery pt Therapy/Recovery feels vision isn't the same after that PT-OP-C Subjective Start: 05/06/20 08:34 Freq: Status: Active Protocol: Document 08/29/20 09:00 AMB (Rec: 08/29/20 10:05 AMB [id number]) OP-PT Subjective Patient Comments Patient Comments Pt does report clavicle pain today thinks it's because she' s wearing a bra. Denies pain elsewhere, She is using a SPC and reports is helping with ADLS. She attends with a SPC. PT-OP-E Functional Tests Start: 05/06/20 08:34 Freq: Status: Active Protocol: Document 07/18/20 13:30 AMB (Rec: 07/20/20 09:59 AMB [id number]) Functional Tests Dynamic Gait Index (DGI) Score 16 DGI Impairment Rating 20 to <40% Impaired (Score 15- 19) PT-OP-G Mobility & Gait Start: 05/06/20 08:34 Freq: Status: Active Protocol: Document 05/06/20 14:15 AMB (Rec: 05/06/20 15:56 AMB [email or web address]) OP Gait Assessment Comments Gait Comments Pt can ambulate with arm swing when cued to do so, but naturally very stiff. Horizontal head turns are unsafe. Stair Climbing Evaluation Technique/Endurance Stair Climbing Direction Ascend and Descend Stair Climbing Technique Step Over Step Stair Climbing Set # Repetitions (reps) 4 PT-OP-J Posture/Palpation/Skin Start: 05/06/20 08:34 Freq: Status: Active Protocol: Document 05/06/20 14:15 AMB (Rec: 05/06/20 15:56 AMB [email or web address]) Posture Evaluation Comments Posture Comments scoliosis with left shoulder high PT-OP-M Strength Start: 05/06/20 08:34 Freq: Status: Active Protocol: Document 05/06/20 14:15 AMB (Rec: 05/06/20 15:56 AMB [email or web address]) Hip Strength Hip Manual Muscle Testing Right Flexion (L2) 4 Good Extension (S1) 4 Good Abduction 4 Good Adduction 4 Good Left Flexion (L2) 4 Good Extension (S1) 4 Good Abduction 4 Good Adduction 4 Good Knee Strength Knee Manual Muscle Testing Right Flexion (S2) 5 Normal Extension (L3) 5 Normal Left Flexion (S2) 5 Normal Extension (L3) 5 Normal PT-OP-Q Treatments Start: 05/06/20 08:34 Freq: Status: Active Protocol: Document 08/29/20 09:00 AMB (Rec: 09/03/20 10:24 AMB [email or web address]) Therapeutic Activity Therapeutic Activity 4 Name car transfer Comments backing up, pushing door, decided safest was to backup and then sit down on seat and then move legs in- now needs to close/open door for her given the sling 3 Name Closing/opening doors Comments backing up reaching, with SPC safely, again reiterated moving body toward door rather than reaching outside of SHU 2 Name SPC safety Comments turning body with SPC- not holding phone and SPC in the same hand while walking 1 Name dressing Comments considering sling- Crystal needs assistance from , reiterated importance of not trying to use shoulder even when it's in the sling PT-OP-T Assessment and Plan Start: 05/06/20 08:34 Freq: Status: Active Protocol: Document 08/29/20 09:00 AMB (Rec: 09/03/20 10:24 AMB [email or web address]) Physical Therapy Assessment Other Concerns Fall Risk yes Goals Two Impairment Gait Short Term Goal (STG) Crystal will walk in the community for 6 minutes with a 4WW--08/29: using SPC due to clavicle fx and in a sling STG Duration 4 weeks Usp Goal (LTG) Crystal will ambulate with slow head turns so she could safely cross a parking lot while being aware of oncoming vehicles without loss of balance. LTG Duration 8 weeks One Impairment Fall risk Short Term Goal (STG) Crystal will improve her DGI to 19/ so that she can show decreased risk of falling.-- - 1 point improvement STG Duration 4 weeks Material Crew Supervisor Goal (LTG) Crystal will safely reach for objects on the floor without loss of balance.-- Crystal's vision makes this challenging LTG Duration 8 weeks Assessment Summary Assessment Crystal recently fell while closing a door. She fractured her clavicle, and is wearing a sling. She was seen in the ED and has an apt with her PCP in 2 days. She is more unstable now because she is no longer able to use her 4WW, but her is helping more around the house, with dressing, bathing, etc. Her vision continues to make her balance more precarious, she was not wearing her glasses at the time of the fall, as they are at the eye doctors, getting a prism put in them. Overall today, she was slower, but that is appropriate considering the SPC and her recent fall. She would benefit from continued physical therapy to manage her fall risk, although she continues to be a very high fall risk and she will likely need to make behavioral changes to manage this (doing fewer things that challenge her balance) but she does at times feel like she needs to crawley, makes poor decisions about challenging balance scenarios. Discussed this with Speech therapist, who did evaluate her cognition. She also found vision/spatial awareness impaired. Physical therapy will continue to focus on managing fall risk. Physical Therapy Plan Frequency and Duration Frequency of Treatment 1x/Week Duration of Treatment 8 weeks Plan of Care Start Date 08/29/20 Plan of Care End Date 10/24/20 Therapeutic Interventions Therapeutic Interventions Balance Training,Gait Training ,Home Exercise Program,Manual Therapy,Neuromuscular Re- education,Self-Care/Home Management,Therapeutic Activities,Therapeutic Exercises Next Visit Focus/Plan Next Note Type Treatment Note Next Visit Plan Progress gait training, work on turning, reaching, fall risk reduction, manage SPC while pt needs to use sling
--- NOTE | 2020-09-05 13:26 | PT.OTN ---
Current Diagnoses Parkinson's disease (09/05/20) Dysphagia, unspecified (09/05/20) Other abnormalities of gait and mobility (09/05/20) Repeated falls (09/05/20) Physical Therapy Treatment Note PT-OP-A Visit Information Start: 05/06/20 08:34 Freq: Status: Active Protocol: Document 09/05/20 09:00 AMB (Rec: 09/05/20 10:11 AMB [id number]) Out-Patient Physical Therapy Visit Information Visit Information Visit Type Treatment Note Visit Note 07/17 Visit Start Time 09:00 Visit Stop Time 09:45 Total Visit Minutes 45 Visit Number 15 PT-OP-B Current Condition Start: 05/06/20 08:34 Freq: Status: Active Protocol: Document 05/06/20 14:17 AMB (Rec: 05/06/20 14:35 AMB [id number]) Current Condition History of Current Condition Onset Date years Current Complaints fall history, History of Current Condition 5 falls in the last 6 months. Picking up an m&m from the floor and fell backwards. Has fallen forward multiple time and cut her face- not sure what causes it. Also has noticed reaching for things that are out of reach. Lives in a two story house with a rail, step over step and doesn 't feel like this is an issue, has a walk in shower without grab bars. L shoulder pain with stretching. Difficult to get up from the floor- does have knee pain with kneeling. Prior Treatments and Tests BIG therapy recently have continued on with exercises Treatment Goals Patient/Caregiver Goals Wants to walk with a cane when out in the community. Prior Functional Status Baseline Function- ADL's Modified Independent Baseline Function- Mobility Modified Independent Current Functional Impairments (Reported) Functional Limitations- ADL's Difficulty with floor transfers, gait, no longer driving Personal Factors Other Personal Factors That May Effect Recent cateract surgery pt Therapy/Recovery feels vision isn't the same after that PT-OP-C Subjective Start: 05/06/20 08:34 Freq: Status: Active Protocol: Document 09/05/20 09:00 AMB (Rec: 09/05/20 10:11 AMB [id number]) OP-PT Subjective Patient Comments Patient Comments No falls in the last week, get X-ray 2 weeks from now, sling probably for another 5 weeks. PT-OP-E Functional Tests Start: 05/06/20 08:34 Freq: Status: Active Protocol: Document 07/18/20 13:30 AMB (Rec: 07/20/20 09:59 AMB [id number]) Functional Tests Dynamic Gait Index (DGI) Score 16 DGI Impairment Rating 20 to <40% Impaired (Score 15- 19) PT-OP-G Mobility & Gait Start: 05/06/20 08:34 Freq: Status: Active Protocol: Document 05/06/20 14:15 AMB (Rec: 05/06/20 15:56 AMB [email or web address]) OP Gait Assessment Comments Gait Comments Pt can ambulate with arm swing when cued to do so, but naturally very stiff. Horizontal head turns are unsafe. Stair Climbing Evaluation Technique/Endurance Stair Climbing Direction Ascend and Descend Stair Climbing Technique Step Over Step Stair Climbing Set # Repetitions (reps) 4 PT-OP-J Posture/Palpation/Skin Start: 05/06/20 08:34 Freq: Status: Active Protocol: Document 05/06/20 14:15 AMB (Rec: 05/06/20 15:56 AMB [email or web address]) Posture Evaluation Comments Posture Comments scoliosis with left shoulder high PT-OP-M Strength Start: 05/06/20 08:34 Freq: Status: Active Protocol: Document 05/06/20 14:15 AMB (Rec: 05/06/20 15:56 AMB [email or web address]) Hip Strength Hip Manual Muscle Testing Right Flexion (L2) 4 Good Extension (S1) 4 Good Abduction 4 Good Adduction 4 Good Left Flexion (L2) 4 Good Extension (S1) 4 Good Abduction 4 Good Adduction 4 Good Knee Strength Knee Manual Muscle Testing Right Flexion (S2) 5 Normal Extension (L3) 5 Normal Left Flexion (S2) 5 Normal Extension (L3) 5 Normal PT-OP-Q Treatments Start: 05/06/20 08:34 Freq: Status: Active Protocol: Document 09/05/20 09:00 AMB (Rec: 09/05/20 13:25 AMB [email or web address]) Therapeutic Activity Therapeutic Activity 5 Name laundry Comments reaching and pulling, bending safety with one arm as pt is not supposed to be lifting more than 5# 3 Name Closing/opening doors Comments backing up reaching, with SPC safely, again reiterated moving body toward door rather than reaching outside of SHU Gait Training Gait Activity 2 Description SPC training Level of Assistance SBA Surface smooth Distance/Duration 300' Comments looking forward, pt does tend to lose balance when she turns her head 1 Description SPC training Comments over hurdles PT-OP-T Assessment and Plan Start: 05/06/20 08:34 Freq: Status: Active Protocol: Document 09/05/20 09:00 AMB (Rec: 09/05/20 10:11 AMB [id number]) Physical Therapy Assessment Assessment Summary Assessment Crystal was encouraged to have her help with laundry. She is currently bending over reaching and pulling wet laundry and putting it into dryer and considering her balance and history of falls and vision challenges, it's very difficult to make this a safe activity at this time. Physical Therapy Plan Next Visit Focus/Plan Next Note Type Treatment Note Next Visit Plan Progress gait training, work on turning, reaching, fall risk reduction, manage SPC while pt needs to use sling
--- NOTE | 2020-09-12 16:31 | PT.OTN ---
Current Diagnoses Parkinson's disease (09/12/20) Dysphagia, unspecified (09/12/20) Other abnormalities of gait and mobility (09/12/20) Repeated falls (09/12/20) Physical Therapy Treatment Note PT-OP-A Visit Information Start: 05/06/20 08:34 Freq: Status: Active Protocol: Document 09/12/20 09:48 MA (Rec: 09/12/20 10:18 MA [id number]) Out-Patient Physical Therapy Visit Information Visit Information Visit Type Treatment Note Visit Note 08/17 Visit Start Time 09:30 Visit Stop Time 10:10 Total Visit Minutes 40 Visit Number 16 Number of [employer]ER Visits 1 PT-OP-B Current Condition Start: 05/06/20 08:34 Freq: Status: Active Protocol: Document 05/06/20 14:17 AMB (Rec: 05/06/20 14:35 AMB [id number]) Current Condition History of Current Condition Onset Date years Current Complaints fall history, History of Current Condition 5 falls in the last 6 months. Picking up an m&m from the floor and fell backwards. Has fallen forward multiple time and cut her face- not sure what causes it. Also has noticed reaching for things that are out of reach. Lives in a two story house with a rail, step over step and doesn 't feel like this is an issue, has a walk in shower without grab bars. L shoulder pain with stretching. Difficult to get up from the floor- does have knee pain with kneeling. Prior Treatments and Tests BIG therapy recently have continued on with exercises Treatment Goals Patient/Caregiver Goals Wants to walk with a cane when out in the community. Prior Functional Status Baseline Function- ADL's Modified Independent Baseline Function- Mobility Modified Independent Current Functional Impairments (Reported) Functional Limitations- ADL's Difficulty with floor transfers, gait, no longer driving Personal Factors Other Personal Factors That May Effect Recent cateract surgery pt Therapy/Recovery feels vision isn't the same after that PT-OP-C Subjective Start: 05/06/20 08:34 Freq: Status: Active Protocol: Document 09/12/20 09:48 MA (Rec: 09/12/20 10:18 MA [id number]) OP-PT Subjective Patient Comments Patient Comments Pt arrives with hank deras and SPC. She states I had a fall yesterday when I came out of the closet and tripped over the hamper. PT-OP-E Functional Tests Start: 05/06/20 08:34 Freq: Status: Active Protocol: Document 07/18/20 13:30 AMB (Rec: 07/20/20 09:59 AMB [id number]) Functional Tests Dynamic Gait Index (DGI) Score 16 DGI Impairment Rating 20 to <40% Impaired (Score 15- 19) PT-OP-G Mobility & Gait Start: 05/06/20 08:34 Freq: Status: Active Protocol: Document 05/06/20 14:15 AMB (Rec: 05/06/20 15:56 AMB [email or web address]) OP Gait Assessment Comments Gait Comments Pt can ambulate with arm swing when cued to do so, but naturally very stiff. Horizontal head turns are unsafe. Stair Climbing Evaluation Technique/Endurance Stair Climbing Direction Ascend and Descend Stair Climbing Technique Step Over Step Stair Climbing Set # Repetitions (reps) 4 PT-OP-J Posture/Palpation/Skin Start: 05/06/20 08:34 Freq: Status: Active Protocol: Document 05/06/20 14:15 AMB (Rec: 05/06/20 15:56 AMB [email or web address]) Posture Evaluation Comments Posture Comments scoliosis with left shoulder high PT-OP-M Strength Start: 05/06/20 08:34 Freq: Status: Active Protocol: Document 05/06/20 14:15 AMB (Rec: 05/06/20 15:56 AMB [email or web address]) Hip Strength Hip Manual Muscle Testing Right Flexion (L2) 4 Good Extension (S1) 4 Good Abduction 4 Good Adduction 4 Good Left Flexion (L2) 4 Good Extension (S1) 4 Good Abduction 4 Good Adduction 4 Good Knee Strength Knee Manual Muscle Testing Right Flexion (S2) 5 Normal Extension (L3) 5 Normal Left Flexion (S2) 5 Normal Extension (L3) 5 Normal PT-OP-Q Treatments Start: 05/06/20 08:34 Freq: Status: Active Protocol: Document 09/12/20 09:48 MA (Rec: 09/12/20 10:18 MA [id number]) Therapeutic Activity Therapeutic Activity 5 Name reaching Comments stepping up to cones and reaching to pick them up close to SHU, stepping up to signs and reaching up to tap them, stepping up to door and reaching handle 3 Name Closing/opening doors Comments backing up reaching, with SPC safely, again reiterated moving body toward door rather than reaching outside of SHU Gait Training Gait Activity Stairs Description 4 & 6 stairs Level of Assistance Left rail (ascending) Distance/Duration 6x Comments 1. stepping up on 6 single step alternating feet with cane 2. gym stairs-ascending step- over, descending step-to pattern using single rail 2 Description SPC training Level of Assistance SBA Surface smooth Distance/Duration 2x300' Comments 1. Working on looking fwd 2. Working on walking forward with head turns (L/R) 3. Walking backwards with cues to move cane 1 Description SPC training Comments over hurdles PT-OP-T Assessment and Plan Start: 05/06/20 08:34 Freq: Status: Active Protocol: Document 09/12/20 09:48 MA (Rec: 09/12/20 10:18 MA [id number]) Physical Therapy Assessment Goals Two Impairment Gait Short Term Goal (STG) Crystal will walk in the community for 6 minutes with a 4WW--08/29: using SPC due to clavicle fx and in a sling STG Duration 4 weeks Associate Relations Specialist Goal (LTG) Crystal will ambulate with slow head turns so she could safely cross a parking lot while being aware of oncoming vehicles without loss of balance. LTG Duration 8 weeks One Impairment Fall risk Short Term Goal (STG) Crystal will improve her DGI to so that she can show decreased risk of falling.-- - 1 point improvement STG Duration 4 weeks Associate Relations Specialist Goal (LTG) Crystal will safely reach for objects on the floor without loss of balance.-- Crystal's vision makes this challenging LTG Duration 8 weeks Assessment Summary Assessment Pt had another fall yesterday. Practiced looking forward while walking to be able to see any tripping hazards. Pt also states her worries about her on the stairs so practiced stepping up on 6 step with cane and then using gym stairs with single rail assist, no cane. Pt tends to step reciprocally when ascending/descending but loses her balance on descent. Worked on step-to pattern instead while descending so pt can maintain her balance with good results. Pt shows good carryover of training while opening and closing doors, stepping up to door before opening instead of leaning outside SHU. Physical Therapy Plan Frequency and Duration Frequency of Treatment 1x/Week Duration of Treatment 8 weeks Plan of Care Start Date 08/29/20 Plan of Care End Date 10/24/20 Therapeutic Interventions Therapeutic Interventions Balance Training,Gait Training ,Home Exercise Program,Manual Therapy,Neuromuscular Re- education,Self-Care/Home Management,Therapeutic Activities,Therapeutic Exercises Next Visit Focus/Plan Next Note Type Treatment Note Next Visit Plan Reassess stairs, ascending reciprocally and descending step-to with single rail assist. Progress gait training, work on turning, reaching, fall risk reduction, manage SPC while pt needs to use sling
--- NOTE | 2020-09-19 15:44 | PT.OTN ---
Current Diagnoses Parkinson's disease (09/19/20) Dysphagia, unspecified (09/19/20) Other abnormalities of gait and mobility (09/19/20) Repeated falls (09/19/20) Physical Therapy Treatment Note PT-OP-A Visit Information Start: 05/06/20 08:34 Freq: Status: Active Protocol: Document 09/19/20 09:06 AMB (Rec: 09/19/20 09:21 AMB [id number]) Out-Patient Physical Therapy Visit Information Visit Information Visit Type Treatment Note Visit Start Time 09:00 Visit Stop Time 09:45 Total Visit Minutes 45 Visit Number 17 PT-OP-B Current Condition Start: 05/06/20 08:34 Freq: Status: Active Protocol: Document 05/06/20 14:17 AMB (Rec: 05/06/20 14:35 AMB [id number]) Current Condition History of Current Condition Onset Date years Current Complaints fall history, History of Current Condition 5 falls in the last 6 months. Picking up an m&m from the floor and fell backwards. Has fallen forward multiple time and cut her face- not sure what causes it. Also has noticed reaching for things that are out of reach. Lives in a two story house with a rail, step over step and doesn 't feel like this is an issue, has a walk in shower without grab bars. L shoulder pain with stretching. Difficult to get up from the floor- does have knee pain with kneeling. Prior Treatments and Tests BIG therapy recently have continued on with exercises Treatment Goals Patient/Caregiver Goals Wants to walk with a cane when out in the community. Prior Functional Status Baseline Function- ADL's Modified Independent Baseline Function- Mobility Modified Independent Current Functional Impairments (Reported) Functional Limitations- ADL's Difficulty with floor transfers, gait, no longer driving Personal Factors Other Personal Factors That May Effect Recent cateract surgery pt Therapy/Recovery feels vision isn't the same after that PT-OP-C Subjective Start: 05/06/20 08:34 Freq: Status: Active Protocol: Document 09/19/20 09:06 AMB (Rec: 09/19/20 09:21 AMB [id number]) OP-PT Subjective Patient Comments Patient Comments Fell in the closet, yelled at her when she was in the closet to turn the light, turned the light on and stood up and wasn't able to stand up all the way and fell. PT-OP-E Functional Tests Start: 05/06/20 08:34 Freq: Status: Active Protocol: Document 07/18/20 13:30 AMB (Rec: 07/20/20 09:59 AMB [id number]) Functional Tests Dynamic Gait Index (DGI) Score 16 DGI Impairment Rating 20 to <40% Impaired (Score 15- 19) PT-OP-G Mobility & Gait Start: 05/06/20 08:34 Freq: Status: Active Protocol: Document 05/06/20 14:15 AMB (Rec: 05/06/20 15:56 AMB [email or web address]) OP Gait Assessment Comments Gait Comments Pt can ambulate with arm swing when cued to do so, but naturally very stiff. Horizontal head turns are unsafe. Stair Climbing Evaluation Technique/Endurance Stair Climbing Direction Ascend and Descend Stair Climbing Technique Step Over Step Stair Climbing Set # Repetitions (reps) 4 PT-OP-J Posture/Palpation/Skin Start: 05/06/20 08:34 Freq: Status: Active Protocol: Document 05/06/20 14:15 AMB (Rec: 05/06/20 15:56 AMB [email or web address]) Posture Evaluation Comments Posture Comments scoliosis with left shoulder high PT-OP-M Strength Start: 05/06/20 08:34 Freq: Status: Active Protocol: Document 05/06/20 14:15 AMB (Rec: 05/06/20 15:56 AMB [email or web address]) Hip Strength Hip Manual Muscle Testing Right Flexion (L2) 4 Good Extension (S1) 4 Good Abduction 4 Good Adduction 4 Good Left Flexion (L2) 4 Good Extension (S1) 4 Good Abduction 4 Good Adduction 4 Good Knee Strength Knee Manual Muscle Testing Right Flexion (S2) 5 Normal Extension (L3) 5 Normal Left Flexion (S2) 5 Normal Extension (L3) 5 Normal PT-OP-Q Treatments Start: 05/06/20 08:34 Freq: Status: Active Protocol: Document 09/19/20 09:00 AMB (Rec: 09/19/20 15:43 AMB [id number]) Therapeutic Activity Therapeutic Activity 1 Name sit to stand Reps/Minutes 35 minutes Comments See assessment Gait Training Gait Activity 2 Description SPC training Level of Assistance SBA Surface smooth Distance/Duration 2x300' Comments 1. Working on looking fwd 3. Walking backwards with cues to move cane PT-OP-T Assessment and Plan Start: 05/06/20 08:34 Freq: Status: Active Protocol: Document 09/19/20 09:00 AMB (Rec: 09/19/20 15:43 AMB [id number]) Physical Therapy Assessment Assessment Summary Assessment Pt continues to have tendency to go backwards with sit to stand, spent entire session working on safety with sit to stand, breaking it up into steps 1) scoot forward, 2)feet under neath, 3)lean forward, then stand up, pt able to do about 50% of the time, but continues to weightbear extensively on heels and fall backward. Physical Therapy Plan Next Visit Focus/Plan Next Note Type Treatment Note Next Visit Plan Reassess retention of sit to stand safety, this has been reiterated multiple times, but pt has had significant difficulty putting it into practice.
--- NOTE | 2020-09-26 14:12 | PT.OTN ---
Current Diagnoses Parkinson's disease (09/26/20) Dysphagia, unspecified (09/26/20) Other abnormalities of gait and mobility (09/26/20) Repeated falls (09/26/20) Physical Therapy Treatment Note PT-OP-A Visit Information Start: 05/06/20 08:34 Freq: Status: Active Protocol: Document 09/26/20 09:00 AMB (Rec: 09/26/20 10:11 AMB [id number]) Out-Patient Physical Therapy Visit Information Visit Information Visit Type Treatment Note Visit Start Time 09:00 Visit Stop Time 09:45 Total Visit Minutes 45 Visit Number 18 PT-OP-B Current Condition Start: 05/06/20 08:34 Freq: Status: Active Protocol: Document 05/06/20 14:17 AMB (Rec: 05/06/20 14:35 AMB [id number]) Current Condition History of Current Condition Onset Date years Current Complaints fall history, History of Current Condition 5 falls in the last 6 months. Picking up an m&m from the floor and fell backwards. Has fallen forward multiple time and cut her face- not sure what causes it. Also has noticed reaching for things that are out of reach. Lives in a two story house with a rail, step over step and doesn 't feel like this is an issue, has a walk in shower without grab bars. L shoulder pain with stretching. Difficult to get up from the floor- does have knee pain with kneeling. Prior Treatments and Tests BIG therapy recently have continued on with exercises Treatment Goals Patient/Caregiver Goals Wants to walk with a cane when out in the community. Prior Functional Status Baseline Function- ADL's Modified Independent Baseline Function- Mobility Modified Independent Current Functional Impairments (Reported) Functional Limitations- ADL's Difficulty with floor transfers, gait, no longer driving Personal Factors Other Personal Factors That May Effect Recent cateract surgery pt Therapy/Recovery feels vision isn't the same after that PT-OP-C Subjective Start: 05/06/20 08:34 Freq: Status: Active Protocol: Document 09/26/20 09:00 AMB (Rec: 09/26/20 10:11 AMB [id number]) OP-PT Subjective Patient Comments Patient Comments No falls in the last week. New sling is too big, getting a new one. PT-OP-E Functional Tests Start: 05/06/20 08:34 Freq: Status: Active Protocol: Document 07/18/20 13:30 AMB (Rec: 07/20/20 09:59 AMB [id number]) Functional Tests Dynamic Gait Index (DGI) Score 16 DGI Impairment Rating 20 to <40% Impaired (Score 15- 19) PT-OP-G Mobility & Gait Start: 05/06/20 08:34 Freq: Status: Active Protocol: Document 05/06/20 14:15 AMB (Rec: 05/06/20 15:56 AMB [email or web address]) OP Gait Assessment Comments Gait Comments Pt can ambulate with arm swing when cued to do so, but naturally very stiff. Horizontal head turns are unsafe. Stair Climbing Evaluation Technique/Endurance Stair Climbing Direction Ascend and Descend Stair Climbing Technique Step Over Step Stair Climbing Set # Repetitions (reps) 4 PT-OP-J Posture/Palpation/Skin Start: 05/06/20 08:34 Freq: Status: Active Protocol: Document 05/06/20 14:15 AMB (Rec: 05/06/20 15:56 AMB [email or web address]) Posture Evaluation Comments Posture Comments scoliosis with left shoulder high PT-OP-M Strength Start: 05/06/20 08:34 Freq: Status: Active Protocol: Document 05/06/20 14:15 AMB (Rec: 05/06/20 15:56 AMB [email or web address]) Hip Strength Hip Manual Muscle Testing Right Flexion (L2) 4 Good Extension (S1) 4 Good Abduction 4 Good Adduction 4 Good Left Flexion (L2) 4 Good Extension (S1) 4 Good Abduction 4 Good Adduction 4 Good Knee Strength Knee Manual Muscle Testing Right Flexion (S2) 5 Normal Extension (L3) 5 Normal Left Flexion (S2) 5 Normal Extension (L3) 5 Normal PT-OP-Q Treatments Start: 05/06/20 08:34 Freq: Status: Active Protocol: Document 09/26/20 09:00 AMB (Rec: 09/26/20 14:11 AMB [email or web address]) Therapeutic Activity Therapeutic Activity 5 Name reaching Comments stepping up to cones and reaching to pick them up close to SHU, stepping up to signs and reaching up to tap them, stepping up to door and reaching handle 3 Name Closing/opening doors Comments backing up reaching, with SPC safely, again reiterated moving body toward door rather than reaching outside of SHU 1 Name sit to stand Reps/Minutes 15 minutes Gait Training Gait Activity 2 Description SPC training Level of Assistance SBA Surface smooth Distance/Duration 2x300' Comments 1. Working on looking fwd rather than down 1 Description SPC training Comments over hurdles, around cones PT-OP-T Assessment and Plan Start: 05/06/20 08:34 Freq: Status: Active Protocol: Document 09/26/20 09:00 AMB (Rec: 09/26/20 10:11 AMB [id number]) Physical Therapy Assessment Goals Two Impairment Gait Short Term Goal (STG) Crystal will walk in the community for 6 minutes with a 4WW--08/29: using SPC due to clavicle fx and in a sling STG Duration 4 weeks Skilled Nursing Goal (LTG) Crystal will ambulate with slow head turns so she could safely cross a parking lot while being aware of oncoming vehicles without loss of balance. LTG Duration 8 weeks One Impairment Fall risk Short Term Goal (STG) Crystal will improve her DGI to so that she can show decreased risk of falling.-- - 1 point improvement STG Duration 4 weeks Vault Keeper Goal (LTG) Crystal will safely reach for objects on the floor without loss of balance.-- Crystal's vision makes this challenging LTG Duration 8 weeks Assessment Summary Assessment Anikas safety to sit to stand was improved today, but continues to fail to lean far enough forward about 25% of the time. Has good cognitive understanding of this, but difficulty putting it into practice. Physical Therapy Plan Next Visit Focus/Plan Next Visit Plan Continue work on sit to stand safety, reaching, try to progress safety with gait.
--- NOTE | 2020-10-03 14:43 | PT.OTN ---
Current Diagnoses Parkinson's disease (10/03/20) Dysphagia, unspecified (10/03/20) Other abnormalities of gait and mobility (10/03/20) Repeated falls (10/03/20) Physical Therapy Treatment Note PT-OP-A Visit Information Start: 05/06/20 08:34 Freq: Status: Active Protocol: Document 10/03/20 09:00 AMB (Rec: 10/03/20 10:25 AMB [id number]) Out-Patient Physical Therapy Visit Information Visit Information Visit Type Treatment Note Visit Start Time 09:00 Visit Stop Time 09:45 Total Visit Minutes 45 Visit Number 19 PT-OP-B Current Condition Start: 05/06/20 08:34 Freq: Status: Active Protocol: Document 05/06/20 14:17 AMB (Rec: 05/06/20 14:35 AMB [id number]) Current Condition History of Current Condition Onset Date years Current Complaints fall history, History of Current Condition 5 falls in the last 6 months. Picking up an m&m from the floor and fell backwards. Has fallen forward multiple time and cut her face- not sure what causes it. Also has noticed reaching for things that are out of reach. Lives in a two story house with a rail, step over step and doesn 't feel like this is an issue, has a walk in shower without grab bars. L shoulder pain with stretching. Difficult to get up from the floor- does have knee pain with kneeling. Prior Treatments and Tests BIG therapy recently have continued on with exercises Treatment Goals Patient/Caregiver Goals Wants to walk with a cane when out in the community. Prior Functional Status Baseline Function- ADL's Modified Independent Baseline Function- Mobility Modified Independent Current Functional Impairments (Reported) Functional Limitations- ADL's Difficulty with floor transfers, gait, no longer driving Personal Factors Other Personal Factors That May Effect Recent cateract surgery pt Therapy/Recovery feels vision isn't the same after that PT-OP-C Subjective Start: 05/06/20 08:34 Freq: Status: Active Protocol: Document 10/03/20 09:00 AMB (Rec: 10/03/20 10:25 AMB [id number]) OP-PT Subjective Patient Comments Patient Comments Saw orthopedist who d/jerry sling and said ok to return to 4WW. PT-OP-E Functional Tests Start: 05/06/20 08:34 Freq: Status: Active Protocol: Document 07/18/20 13:30 AMB (Rec: 07/20/20 09:59 AMB [id number]) Functional Tests Dynamic Gait Index (DGI) Score 16 DGI Impairment Rating 20 to <40% Impaired (Score 15- 19) PT-OP-G Mobility & Gait Start: 05/06/20 08:34 Freq: Status: Active Protocol: Document 05/06/20 14:15 AMB (Rec: 05/06/20 15:56 AMB [email or web address]) OP Gait Assessment Comments Gait Comments Pt can ambulate with arm swing when cued to do so, but naturally very stiff. Horizontal head turns are unsafe. Stair Climbing Evaluation Technique/Endurance Stair Climbing Direction Ascend and Descend Stair Climbing Technique Step Over Step Stair Climbing Set # Repetitions (reps) 4 PT-OP-J Posture/Palpation/Skin Start: 05/06/20 08:34 Freq: Status: Active Protocol: Document 05/06/20 14:15 AMB (Rec: 05/06/20 15:56 AMB [email or web address]) Posture Evaluation Comments Posture Comments scoliosis with left shoulder high PT-OP-M Strength Start: 05/06/20 08:34 Freq: Status: Active Protocol: Document 05/06/20 14:15 AMB (Rec: 05/06/20 15:56 AMB [email or web address]) Hip Strength Hip Manual Muscle Testing Right Flexion (L2) 4 Good Extension (S1) 4 Good Abduction 4 Good Adduction 4 Good Left Flexion (L2) 4 Good Extension (S1) 4 Good Abduction 4 Good Adduction 4 Good Knee Strength Knee Manual Muscle Testing Right Flexion (S2) 5 Normal Extension (L3) 5 Normal Left Flexion (S2) 5 Normal Extension (L3) 5 Normal PT-OP-Q Treatments Start: 05/06/20 08:34 Freq: Status: Active Protocol: Document 10/03/20 09:00 AMB (Rec: 10/03/20 14:43 AMB [email or web address]) Therapeutic Activity Therapeutic Activity 3 Name Closing/opening doors Comments backing up reaching, with 4WW safely, again reiterated moving body toward door rather than reaching outside of SHU 1 Name sit to stand Reps/Minutes 15 minutes Comments better at avoiding posterior LOB today Gait Training Gait Activity 2 Description 4WW Level of Assistance SBA Surface smooth Distance/Duration 2x300' Comments 1. Working on looking fwd rather than down Neuro Re-Education Treatment Balance Activities 1 Details corner balance exercises Comments NBOS: vertical/horizontal HT. Stride stance: EC, EO weightshifts PT-OP-T Assessment and Plan Start: 05/06/20 08:34 Freq: Status: Active Protocol: Document 10/03/20 09:00 AMB (Rec: 10/03/20 14:43 AMB [email or web address]) Physical Therapy Assessment Goals Two Impairment Gait Short Term Goal (STG) Crystal will walk in the community for 6 minutes with a 4WW--08/29: using SPC due to clavicle fx and in a sling STG Duration 4 weeks Mcfp Goal (LTG) Crystal will ambulate with slow head turns so she could safely cross a parking lot while being aware of oncoming vehicles without loss of balance. LTG Duration 8 weeks One Impairment Fall risk Short Term Goal (STG) Crystal will improve her DGI to so that she can show decreased risk of falling.-- - 1 point improvement STG Duration 4 weeks Mcfp Goal (LTG) Crystal will safely reach for objects on the floor without loss of balance.-- Crystal's vision makes this challenging LTG Duration 8 weeks Assessment Summary Assessment Crystal did better today with better sit to stand and better walking considering that she was able to use her 4WW. She does continue to have poor vision and poor awareness of her balance with reaching. Physical Therapy Plan Next Visit Focus/Plan Next Visit Plan Pt is wanting to d/c soon, but continues to be fall risk, will discuss at next visit
--- NOTE | 2020-10-04 15:18 | PT.OPDS ---
Current Diagnoses Parkinson's disease (10/03/20) Dysphagia, unspecified (10/03/20) Other abnormalities of gait and mobility (10/03/20) Repeated falls (10/03/20) Visit Care Team Role Provider Type Helen Burroughs MD Attending Provider Physician Family Provider Primary Care Provider Referring Provider Specialty: Internal Medicine Address: [address] [place] [address], [facility] Email: [email or web address] Visit Number Visit Number 19 Discharge Summary PT-OP-B Current Condition Start: 05/06/20 08:34 Freq: Status: Active Protocol: Document 05/06/20 14:17 AMB (Rec: 05/06/20 14:35 AMB [id number]) Current Condition History of Current Condition Onset Date years Current Complaints fall history, History of Current Condition 5 falls in the last 6 months. Picking up an m&m from the floor and fell backwards. Has fallen forward multiple time and cut her face- not sure what causes it. Also has noticed reaching for things that are out of reach. Lives in a two story house with a rail, step over step and doesn 't feel like this is an issue, has a walk in shower without grab bars. L shoulder pain with stretching. Difficult to get up from the floor- does have knee pain with kneeling. Prior Treatments and Tests BIG therapy recently have continued on with exercises Treatment Goals Patient/Caregiver Goals Wants to walk with a cane when out in the community. Prior Functional Status Baseline Function- ADL's Modified Independent Baseline Function- Mobility Modified Independent Current Functional Impairments (Reported) Functional Limitations- ADL's Difficulty with floor transfers, gait, no longer driving Personal Factors Other Personal Factors That May Effect Recent cateract surgery pt Therapy/Recovery feels vision isn't the same after that PT-OP-C Subjective Start: 05/06/20 08:34 Freq: Status: Active Protocol: Document 10/03/20 09:00 AMB (Rec: 10/03/20 10:25 AMB [id number]) OP-PT Subjective Patient Comments Patient Comments Saw orthopedist who d/jerry sling and said ok to return to 4WW. PT-OP-E Functional Tests Start: 05/06/20 08:34 Freq: Status: Active Protocol: Document 07/18/20 13:30 AMB (Rec: 07/20/20 09:59 AMB [id number]) Functional Tests Dynamic Gait Index (DGI) Score 16 DGI Impairment Rating 20 to <40% Impaired (Score 15- 19) PT-OP-G Mobility & Gait Start: 05/06/20 08:34 Freq: Status: Active Protocol: Document 05/06/20 14:15 AMB (Rec: 05/06/20 15:56 AMB [email or web address]) OP Gait Assessment Comments Gait Comments Pt can ambulate with arm swing when cued to do so, but naturally very stiff. Horizontal head turns are unsafe. Stair Climbing Evaluation Technique/Endurance Stair Climbing Direction Ascend and Descend Stair Climbing Technique Step Over Step Stair Climbing Set # Repetitions (reps) 4 PT-OP-J Posture/Palpation/Skin Start: 05/06/20 08:34 Freq: Status: Active Protocol: Document 05/06/20 14:15 AMB (Rec: 05/06/20 15:56 AMB [email or web address]) Posture Evaluation Comments Posture Comments scoliosis with left shoulder high PT-OP-M Strength Start: 05/06/20 08:34 Freq: Status: Active Protocol: Document 05/06/20 14:15 AMB (Rec: 05/06/20 15:56 AMB [email or web address]) Hip Strength Hip Manual Muscle Testing Right Flexion (L2) 4 Good Extension (S1) 4 Good Abduction 4 Good Adduction 4 Good Left Flexion (L2) 4 Good Extension (S1) 4 Good Abduction 4 Good Adduction 4 Good Knee Strength Knee Manual Muscle Testing Right Flexion (S2) 5 Normal Extension (L3) 5 Normal Left Flexion (S2) 5 Normal Extension (L3) 5 Normal PT-OP-T Assessment and Plan Start: 05/06/20 08:34 Freq: Status: Active Protocol: Document 10/04/20 15:14 AMB (Rec: 10/04/20 15:18 AMB [email or web address]) Physical Therapy Assessment Goals Two Impairment Gait Short Term Goal (STG) Crystal will walk in the community for 6 minutes with a 4WW--08/29: using SPC due to clavicle fx and in a sling STG Duration 4 weeks Motion Graphics Designer Goal (LTG) Crystal will ambulate with slow head turns so she could safely cross a parking lot while being aware of oncoming vehicles without loss of balance. LTG Duration 8 weeks One Impairment Fall risk Short Term Goal (STG) Crystal will improve her DGI to 19 so that she can show decreased risk of falling.-- - 1 point improvement STG Duration 4 weeks Motion Graphics Designer Goal (LTG) Crystal will safely reach for objects on the floor without loss of balance.-- Crystal's vision makes this challenging LTG Duration 8 weeks Assessment Summary Assessment Crystal is going to be evaluated by a PT in [place] so we are going to discharge for now. She continues to have very frequent falls, and is a very high fall risk. Her vision and cogniti ve status play an important role in this because she continues to perform risking activities that end in falls. We have spent extensive time on moving from sit to stand and reaching appropriately but she continues to have difficulty with this. She is using a 4WW in the community, but I doubt she is using it at home, unfortunately. She would be welcome back in the future if she wants continued PT.
== END 2020-10-13 10:11 | disposition home or self-care (01) ==
LOC: PHYS 09:00
PROVIDERS: Family Provider Internal Medicine; PCP Internal Medicine; Referring Provider Internal Medicine; Visit Provider Internal Medicine
DX: R29.6 Repeated falls (principal); G20 Parkinson's disease; R13.10 Dysphagia, unspecified; R26.89 Other abnormalities of gait and mobility
CPT/HCPCS: 97110; 97112; 97116; 97162; 97530

== ENCOUNTER 2020-10-18 12:30 | Outpatient (RCR) | payer MEDICARE, OTHER, SELFPAY ==
--- NOTE | 2020-04-20 16:36 | ST.OPIE ---
Visit Care Team Role Provider Type Helen Burroughs MD Attending Provider Physician Family Provider Primary Care Provider Referring Provider Specialty: Internal Medicine Address: [address] [place] [address], [address] Email: [email or web address] Speech-Language Pathology Initial Evaluation OUTREACH TEAM MEMBER Motor Speech Evaluation Start: 04/20/20 11:29 Freq: Status: Active Protocol: Document 04/20/20 11:30 BUCK (Rec: 04/20/20 11:40 BUCK [id number]) Motor Speech Evaluation Session Time Visit Start Time 14:30 Visit Stop Time 15:30 Total Visit Minutes 60 Visit Information Visit Number Initial Evaluation Plan of Care Dates 04/18/20 - 07/19/20 Insurance Information Medicare Setting Setting Outpatient Care Next Note Type Next Note Type Treatment Note Patient History Source: [employer]). Patient History The pt is a 74-yr-old female with Parkinsonian symptoms not yet diagnosed as Parkinson's Disease. The pt has been seeing Dr. Niurka Ritter, who is retiring. She is scheduled to establish neurological care with Dr. Harleen Phelan at [facility] in [place] at the end of this month. The pt has complaints of drooling and slowed speech and auditory processing since December. She states that she sometimes uses the wrong words , her voice has gotten quieter than it used to, and she feels a tremor inside her body, especially when she is tired. She recently began taking Levadopa, which has improved her symptoms. She denied dysphagia symptoms with exception of 3 recent coughing episodes, which the pt attributes to swallowing too large of bites without properly chewing. The pt also reported 4-5 falls since in the last ~1.5 months , some in which she hit her head, but she denies loss of consciousness, changes in mentation, or injuries greater that cuts and bruises. She has reported none of the falls to her doctors because she did not feel they were of great significance. Additionally, the pt reported recent cataract surgery (2019) and stated she is unable to move eyes to the left or focus to the left, which nearly eliminates her ability to read. During the oral peripheral exam today, some facial asymmetry was noted, and the pt stated that she thinks she had a small stroke or TIA a few years ago which went unreported and therefore undiagnosed. The pt did just complete the [facility] program with a Physical Therapist in [facility] in March. She stated she was originally interested in the [facility]-Loud program with Speech Therapy, but due to scheduling delays and concerns of symptoms besides voice, she desired to participate in more generalized ST services. Referral Referring Physician Dr. Helen Burroughs Reason for Referral Parkinsonian disorder Mental Status Mental Status Alert,Responsive,Cooperative Subjective Observations Subjective The pt arrived on time and provided case history supplemental to medical records. The pt informed that she lives with her , who is hard of hearing, and this adds to communication challenges. Oral Motor Lips Function Mild Impairment Observation at rest Mild asymmetry, reduced tone at Right side Pucker WNL Retraction WNL Alternating pucker/retraction Mildly reduced coordination Involuntary Movement No Tongue Function Mild Impairment Observations at rest WNL Protrusion Less mass on left side vs right Retraction WNL Lateralization WNL Involuntary Movement Mild tremor upon protrusion Jaw Function WNL Involuntary movement No Soft Palate Function WNL Involuntary Movement No Respiration/Phonation Phonation Stimulus Conversation Quality WNL,WFL Other Adequate loudness in quiet room w/ single partner. 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 It is possible that some characteristics may be contributed by stroke, if in fact the pt did experience a stroke in past, which is unknown. Vocal quality is perceived to be WNL; however, further assessment is warranted and will be conducted during treatment. Additionally, expressive, receptive and cognitive communication skills will also be assessed, given the pt's complaints of changes in these areas. In response to the pt's concern about communicating with her , education was provided orally and in writing to the pt RE communication associated with hearing loss. The OUTREACH TEAM MEMBER encouraged the pt to invite her to a session for further education and discussion of recommendations to meet both the pt's and her 's unique communication needs. She was in agreement with this and appreciative. Additional education was provided RE potential effects of Parkinson's disease on communication, voice, swallow, and cognitive linguistic skills, as well as recommended POC. Again, the pt was in agreement and appreciative. Prognosis Rehabilitation Potential Good Recommendations Treatment Recommended Yes Frequency 1x/wk Duration 12 wks Therapy Recommendations Further assessment of voice, expressive, receptive, and cognitive communication with treatment as indicated. Oral motor, vocal and breathing exercises to improve speech production and saliva management. Short Term Goals 1. The pt will participate in further assessment of voice, expressive, receptive, and cognitive communication skills to determine areas of strengths and deficits and to guide POC. 2. The pt will perform oral motor exercises with min cues to improve speech articulation , facial expression, and saliva management. 3. The pt will perform sustained phonation tasks at varying pitches and at or above 70 dB to increase breath support for voice and speech and reduce monoloudness/pitch. Additional goals to be determined pending further assessment Jail Goals 1. The pt will manage saliva WFL, as measured by pt report and clinician judgment. 2. The pt will exhibit variation of loudness, pitch, and facial expressions WNL in 80% of opportunities in structured tasks (e.g., reading paragraphs, role playing, etc.). 3. The pt will exhibit variation of loudness, pitch, and facial expressions WNL in at least 70% of opportunities in structured conversation to improve communication skills in the presence of a progressive disease. Additional goals to be determined pending further assessment Patient/Family Education Education Described results of evaluation,Patient Understanding,Patient Needs More Info,Family Needs More Info
--- NOTE | 2020-04-26 11:23 | ST.OPTN ---
Visit Care Team Role Provider Type Helen Burroughs MD Attending Provider Physician Family Provider Primary Care Provider Referring Provider Address: [address] [place] [address], [id number] INSTALLATION MANAGER Treatment Note INSTALLATION MANAGER Treatment Note Start: 04/18/20 14:31 Freq: Status: Active Protocol: Document 04/26/20 11:00 BUCK (Rec: 04/26/20 11:20 BUCK [id number]) Speech Pathology Treatment Note Session Time Visit Start Time 09:30 Visit Stop Time 10:20 Total Visit Minutes 50 Visit Information Visit Number 1 Plan of Care Dates 04/18/20 - 07/19/20 Insurance Information Medicare Setting Treatment Setting Outpatient Care Visit Type Note Type Treatment Note Next Note Type Next Note Type Treatment Note General Information General Information The pt is a 74-yr-old female with Parkinsonian symptoms not yet diagnosed as Parkinson's Disease. The pt has been seeing Dr. Niurka Ritter, who is retiring. She is scheduled to establish neurological care with Dr. Harleen Phelan at [facility] in [place] at the end of this month. The pt has complaints of drooling and slowed speech and auditory processing since December. She states that she sometimes uses the wrong words , her voice has gotten quieter than it used to, and she feels a tremor inside her body, especially when she is tired. She recently began taking Levadopa, which has improved her symptoms. She denied dysphagia symptoms with exception of 3 recent coughing episodes, which the pt attributes to swallowing too large of bites without properly chewing. The pt also reported 4-5 falls since in the last ~1.5 months , some in which she hit her head, but she denies loss of consciousness, changes in mentation, or injuries greater that cuts and bruises. She has reported none of the falls to her doctors because she did not feel they were of great significance. Additionally, the pt reported recent cataract surgery (2019) and stated she is unable to move eyes to the left or focus to the left, which nearly eliminates her ability to read. During the oral peripheral exam today, some facial asymmetry was noted, and the pt stated that she thinks she had a small stroke or TIA a few years ago which went unreported and therefore undiagnosed. The pt did just complete the LSVT-Big program with a Physical Therapist in [place] in March. She stated she was originally interested in the LSVT-Loud program with Speech Therapy, but due to scheduling delays and concerns of symptoms besides voice, she desired to participate in more generalized ST services. Subjective Observations/Patient Presentation The pt arrived on time unaccompanied. During discussions of POC, the pt prioritized targeting improvement of expressive language processing skills and speech articulation to improve her ability to communicate effectively, particularly with her . She stated that she often feels pressed to respond quickly to her , and in those times her language is jumbled and she finds it difficult to say what she is thinking. She reported saying a wrong word and then perseverating on it even though she knows it is wrong. She stated her becomes angry at her when she is unable to express herself. When asked how he displays that anger, she said he speaks to her condescendingly and I know he is mad. Upon further discussion, it appeared that her is in the process of accepting the pt's new condition and adjusting accordingly to transfer of household/relationship responsibilities from the pt to him. The couple has been 15 yrs and each have 2 grown children from previous relationships. Three of the children live in [place], and one lives in [place]. The pt has no other relatives or friends closeby. One neighbor frequently visits her; otherwise, her is her support system. Chief Complaint(s) Speech,Language,Voice Additional Areas of Concern Saliva management Patient Knowledge/Awareness of INSTALLATION MANAGER Role Good in Treatment Objective Short Term Goals 1. The pt will participate in further assessment of voice, expressive, receptive, and cognitive communication skills to determine areas of strengths and deficits and to guide POC. 2. The pt will perform oral motor exercises with min cues to improve speech articulation , facial expression, and saliva management. 3. The pt will perform sustained phonation tasks at varying pitches and at or above 70 dB to increase breath support for voice and speech and reduce monoloudness/pitch. Additional goals to be determined pending further assessment Senior Care Goals 1. The pt will manage saliva WFL, as measured by pt report and clinician judgment. 2. The pt will exhibit variation of loudness, pitch, and facial expressions WNL in 80% of opportunities in structured tasks (e.g., reading paragraphs, role playing, etc.). 3. The pt will exhibit variation of loudness, pitch, and facial expressions WNL in at least 70% of opportunities in structured conversation to improve communication skills in the presence of a progressive disease. Additional goals to be determined pending further assessment Treatment Activities Consulted with pt RE POC and pt goals. Trained pt in oral motor exercises targeting improving speech articulation, saliva management, facial expression, oral prep and swallow phases. Also initiated training in sustained phonation targeting breath support and vocal loudness for speech. The pt returned demonstration of all tasks and verbalized understanding and motivation to complete exercises. I think these will be really good. I will do my exercises every day. Assessment Patient Response to Treatment Good Rehab Potential Good Impairments Identified Dysarthria,Expressive Language ,Oral Motor,Parkinson's Disease,Speech Intelligibility ,Vocal Quality,Other Additional Impairments Identified Saliva managemetn Assessment of Improvement The pt was highly receptive to all information and training today. She demonstrated understanding of HEP tasks and motivation to complete. Pt/spouse education is necessary to promote family support/assistance and carryover of therapeutic targets. Recommended the pt's attend next therapy session and periodically thereafter. The pt was in agreement and stated she would invite her . Reviewed with Patient Goals,Progress Being Made,Home Exercise Program Patient/Caregiver Understanding Excellent Plan Therapeutic Contents Client Education,Expressive Language Training,Home Exercise Program,Information Processing,Intelligibility, Swallowing/Feeding,Voice Training Additional Areas of Treatment Saliva Management Provided Patient/Caregiver Instruction Home Exercise Program,Plan of Care,Questions/Concerns Therapy Recommendations Continue with Current Program
--- NOTE | 2020-05-04 18:31 | ST.OPTN ---
Visit Care Team Role Provider Type Helen Burroughs MD Attending Provider Physician Family Provider Primary Care Provider Referring Provider Address: [address] [place] [address], [id number] BUCKLE ASSEMBLER Treatment Note BUCKLE ASSEMBLER Treatment Note Start: 04/18/20 14:31 Freq: Status: Active Protocol: Document 05/04/20 17:53 BUCK (Rec: 05/04/20 18:31 BUCK [id number]) Speech Pathology Treatment Note Session Time Visit Start Time 10:30 Visit Stop Time 11:30 Total Visit Minutes 60 Visit Information Visit Number 2 Plan of Care Dates 04/18/20 - 07/19/20 Insurance Information Medicare Setting Treatment Setting Outpatient Care Visit Type Note Type Treatment Note Next Note Type Next Note Type Treatment Note General Information General Information The pt is a 74-yr-old female with Parkinsonian symptoms not yet diagnosed as Parkinson's Disease. The pt has been seeing Dr. Niurka Ritter, who is retiring. She is scheduled to establish neurological care with Dr. Harleen Phelan at [facility] in [place] at the end of this month. The pt has complaints of drooling and slowed speech and auditory processing since December. She states that she sometimes uses the wrong words , her voice has gotten quieter than it used to, and she feels a tremor inside her body, especially when she is tired. She recently began taking Levadopa, which has improved her symptoms. She denied dysphagia symptoms with exception of 3 recent coughing episodes, which the pt attributes to swallowing too large of bites without properly chewing. The pt also reported 4-5 falls since in the last ~1.5 months , some in which she hit her head, but she denies loss of consciousness, changes in mentation, or injuries greater that cuts and bruises. She has reported none of the falls to her doctors because she did not feel they were of great significance. Additionally, the pt reported recent cataract surgery (2019) and stated she is unable to move eyes to the left or focus to the left, which nearly eliminates her ability to read. During the oral peripheral exam today, some facial asymmetry was noted, and the pt stated that she thinks she had a small stroke or TIA a few years ago which went unreported and therefore undiagnosed. The pt did just complete the LSVT-Big program with a Physical Therapist in [place] in March. She stated she was originally interested in the LSVT-Loud program with Speech Therapy, but due to scheduling delays and concerns of symptoms besides voice, she desired to participate in more generalized ST services. Subjective Observations/Patient Presentation The pt arrived on time accompanied by her , Wilber, who was present and participatory in the session, providing case history supplemental to the pt's and expressing his perspective and concerns related to the pt's medical condition. The pt was seen by Neurologist at [facility] in [place] yesterday. Diagnosis was not made and is pending further assessment via imaging . She is also scheduled to see a vision therapist/specialist tomorrow for further assessment of vision changes and discussion of potential treatments. The pt is being seen by OT and PT at this clinic now as well . Chief Complaint(s) Speech,Language,Voice Additional Areas of Concern Saliva management Patient Knowledge/Awareness of BUCKLE ASSEMBLER Role Good in Treatment Objective Short Term Goals 1. The pt will participate in further assessment of voice, expressive, receptive, and cognitive communication skills to determine areas of strengths and deficits and to guide POC. 2. The pt will perform oral motor exercises with min cues to improve speech articulation , facial expression, and saliva management. 3. The pt will perform sustained phonation tasks at varying pitches and at or above 70 dB to increase breath support for voice and speech and reduce monoloudness/pitch. Additional goals to be determined pending further assessment Detention Goals 1. The pt will manage saliva WFL, as measured by pt report and clinician judgment. 2. The pt will exhibit variation of loudness, pitch, and facial expressions WNL in 80% of opportunities in structured tasks (e.g., reading paragraphs, role playing, etc.). 3. The pt will exhibit variation of loudness, pitch, and facial expressions WNL in at least 70% of opportunities in structured conversation to improve communication skills in the presence of a progressive disease. Additional goals to be determined pending further assessment Treatment Activities Education and counseling was provided to the pt and her RE common impacts of PD on communication, swallowing, voice, cognition and self-perception, as well as communication strategies in the presence of probable PD ( pt) and confirmed hearing loss (spouse). The discussion led to concerns expressed by spouse RE the pt's frequent falls, decreased ability to perform ADLs in the home, and decreased safety awareness and judgment. The pt confirmed events described by her , and this information was communicated via email by the BUCKLE ASSEMBLER to the pt's Physical and Occupational Therapists. Recommended the spouse attend the next treatment session and occasional subsequent sessions to target communication strategies in order to increase the pt's safety in the home, maintain/ improve their cooperative relationship, and maintain highest level of independence for the pt with caregiver support. Both the pt and spouse were agreeable to this. Assessment Patient Response to Treatment Good Rehab Potential Good Impairments Identified Dysarthria,Expressive Language ,Oral Motor,Parkinson's Disease,Speech Intelligibility ,Vocal Quality,Other Additional Impairments Identified Saliva management Assessment of Overall Progress Unchanged Assessment of Improvement The pt and her were participatory in today's discussion, receptive to education, and agreeable to collaborative therapy including caregiver education and training. It appears that the couple are still learning to accept and adapt to the changes in the pt 's abiliites and are both concerned for her safety, as related to decreased safety awareness and physcial ability to perform ADLs as per PLOF. The 's hearing loss compounds communication challenges, and it is highly recommended he be present and participatory in therapy to reach communication goals and promote carryover in the pt's functional environment. Reviewed with Patient Goals,Progress Being Made,Home Exercise Program Patient/Caregiver Understanding Excellent Plan Therapeutic Contents Client Education,Expressive Language Training,Home Exercise Program,Information Processing,Intelligibility, Swallowing/Feeding,Voice Training Additional Areas of Treatment Saliva Management Provided Patient/Caregiver Instruction Home Exercise Program,Plan of Care,Questions/Concerns Therapy Recommendations Continue with Current Program
--- NOTE | 2020-05-10 11:51 | ST.OPTN ---
Visit Care Team Role Provider Type Helen Burroughs MD Attending Provider Physician Family Provider Primary Care Provider Referring Provider Address: [address] [place] [address], [id number] PAINT DEPARTMENT SUPERVISOR Treatment Note PAINT DEPARTMENT SUPERVISOR Treatment Note Start: 04/18/20 14:31 Freq: Status: Active Protocol: Document 05/10/20 11:37 BUCK (Rec: 05/10/20 11:50 [email or web address]) Speech Pathology Treatment Note Session Time Visit Start Time 10:35 Visit Stop Time 11:35 Total Visit Minutes 60 Visit Information Visit Number 3 Plan of Care Dates 04/18/20 - 07/19/20 Insurance Information Medicare Setting Treatment Setting Outpatient Care Visit Type Note Type Treatment Note Next Note Type Next Note Type Treatment Note General Information General Information The pt is a 74-yr-old female with Parkinsonian symptoms not yet diagnosed as Parkinson's Disease. The pt has been seeing Dr. Niurka Ritter, who is retiring. She is scheduled to establish neurological care with Dr. Harleen Phelan at [facility] in [place] at the end of this month. The pt has complaints of drooling and slowed speech and auditory processing since December. She states that she sometimes uses the wrong words , her voice has gotten quieter than it used to, and she feels a tremor inside her body, especially when she is tired. She recently began taking Levadopa, which has improved her symptoms. She denied dysphagia symptoms with exception of 3 recent coughing episodes, which the pt attributes to swallowing too large of bites without properly chewing. The pt also reported 4-5 falls since in the last ~1.5 months , some in which she hit her head, but she denies loss of consciousness, changes in mentation, or injuries greater that cuts and bruises. She has reported none of the falls to her doctors because she did not feel they were of great significance. Additionally, the pt reported recent cataract surgery (2019) and stated she is unable to move eyes to the left or focus to the left, which nearly eliminates her ability to read. During the oral peripheral exam today, some facial asymmetry was noted, and the pt stated that she thinks she had a small stroke or TIA a few years ago which went unreported and therefore undiagnosed. The pt did just complete the LSVT-Big program with a Physical Therapist in [place] in March. She stated she was originally interested in the LSVT-Loud program with Speech Therapy, but due to scheduling delays and concerns of symptoms besides voice, she desired to participate in more generalized ST services. Subjective Observations/Patient Presentation The pt arrived on time accompanied by her , Wilber, who was present and participatory in the session. Chief Complaint(s) Speech,Language,Voice Additional Areas of Concern Saliva management Patient Knowledge/Awareness of PAINT DEPARTMENT SUPERVISOR Role Good in Treatment Objective Short Term Goals 1. The pt will participate in further assessment of voice, expressive, receptive, and cognitive communication skills to determine areas of strengths and deficits and to guide POC. 2. The pt will perform oral motor exercises with min cues to improve speech articulation , facial expression, and saliva management. 3. The pt will perform sustained phonation tasks at varying pitches and at or above 70 dB to increase breath support for voice and speech and reduce monoloudness/pitch. Additional goals to be determined pending further assessment Group Home Goals 1. The pt will manage saliva WFL, as measured by pt report and clinician judgment. 2. The pt will exhibit variation of loudness, pitch, and facial expressions WNL in 80% of opportunities in structured tasks (e.g., reading paragraphs, role playing, etc.). 3. The pt will exhibit variation of loudness, pitch, and facial expressions WNL in at least 70% of opportunities in structured conversation to improve communication skills in the presence of a progressive disease. Additional goals to be determined pending further assessment Treatment Activities Continued education and counseling to the pt and her RE common impacts of PD on communication, voice, cognition and self-perception, as well as communication strategies in the presence of probable PD (pt) and confirmed hearing loss (spouse). The pt expressed feeling desire to maintain independence and that her was over supervising her. Her expressed frustration with the pt's repeated patterns of putting herself in situations that often lead to falls and/ or unattainable goals (e.g., reaching for a plate across a large table), as well as her tendency not to face him when talking. Recommended strategies of saying each other's name at start of conversations and gentle reminders to use strategies discussed in therapy, including stating, Remember what Wilma said you/we need to do. Discussed the need for compromise on the part of each person and the need for reinforcement of strategies at home to promote carryover and transition to habit. Education and training was also provided RE respiratory support for speech, voice and airway protection. With PAINT DEPARTMENT SUPERVISOR verbal prompts, the pt sustained phonation at or above normal loudness levels for up to 13 sec. Needs reinforcement and further training at next session. Assessment Patient Response to Treatment Good Rehab Potential Good Impairments Identified Dysarthria,Expressive Language ,Oral Motor,Parkinson's Disease,Speech Intelligibility ,Vocal Quality,Other Additional Impairments Identified Saliva management Assessment of Overall Progress Unchanged Assessment of Improvement The pt and her were participatory in today's discussion. It appears that the couple are still learning to accept and adapt to the changes in the pt's abiliites and are both concerned for her safety, as related to decreased safety awareness and physcial ability to perform ADLs as per PLOF. The ' s hearing loss compounds communication challenges. The pt has expressed difficulty letting go of independence despite acknowledging physical changes that increase her risk of falling or otherwise hurting herself. Her admits to being impatient and easily bothered by the pt's attempts to accomplish tasks that he can see are unreasonable. Relationship dynamics and habitual patterns of behavior beyond the scope of Speech Pathology appear to be factors that contribute to challenges related to communication and patient safety. The pt was receptive to education and training in sustained phonation task, which will be critical to strengthening breath support for voice and speech. She demonstrated ability to extend sustained phonation at or above normal loudness levels, making her stimulable to improving breath support and vocal loudness for speech intelligibility. Reviewed with Patient Goals,Progress Being Made,Home Exercise Program Patient/Caregiver Understanding Good Plan Treatment Emphasis Next Session Sustained phonation, functional phrases - vocal loudness Therapeutic Contents Client Education,Expressive Language Training,Home Exercise Program,Information Processing,Intelligibility, Swallowing/Feeding,Voice Training Additional Areas of Treatment Saliva Management Provided Patient/Caregiver Instruction Home Exercise Program,Plan of Care,Questions/Concerns Therapy Recommendations Continue with Current Program
--- NOTE | 2020-05-20 15:01 | ST.OPIE ---
Visit Care Team Role Provider Type Helen Burroughs MD Attending Provider Physician Family Provider Primary Care Provider Referring Provider Specialty: Internal Medicine Address: [address] [place] [address], [id number] Email: [email or web address] Speech-Language Pathology Initial Evaluation SALES AND IN HOME DELIVERY SPECIALIST Voice Resonance Evaluation Start: 04/18/20 14:31 Freq: Status: Active Protocol: Document 05/18/20 18:12 BUCK (Rec: 05/18/20 18:12 [email or web address] [email or web address]) Voice and Resonance Assessment Session Time Visit Start Time 12:30 Visit Stop Time 13:45 Total Visit Minutes 45 Visit Information Visit Number 4 Plan of Care Dates 04/18/20 - 07/19/20 Insurance Information Medicare Next Note Type Next Note Type Treatment Note Referral Referring Physician Dr. Helen Burroughs Reason for Referral Parkinsonian disorder Setting Setting Outpatient Care Patient History General Information This 74-yr-old female has Parkinsonian symptoms and is currently in the process of diagnosis with Neurologist Dr. Harleen Phelan. She is being seen for Speech Pathology services targeting effective communication skills and is seen today for formal voice evaluation. Hearing Hearing Level Normal Vision Vision Status Impaired [place] Langauge Language(s) Spoken in the Home [place] Occupational Status Occupation Status Retired Previous Therapy History of Previous Therapy The pt has been seen by this clinician since 04/18/20. No previous Speech Therapy. Subjective Subjective The pt arrived on time. Expressed desires are to improve vocal loudness, increase rate of speech and rate of thought processing for expressive and receptive language. She states that by the time she formulates her thoughts, conversation topics have changed and her opinions are no longer relevant to the conversation. She lives with her who is hard of hearing, and the pt's declining vocal loudness levels further impede their communication. - Laryngeal Performance Voice Handicap Index Function Subtotal 16 - Moderate-Severe Physical Subtotal 8 - Mild Emotional Subtotal 12 - Mild-Moderate Total Score 36 Severity Moderate (31-60) CAPE-V Overall Severity 24% Mild-Moderate Roughness 3% Minimal Breathiness WNL Strain WNl Pitch 16% Mild Loudness 44% Moderate Normal Resonance? Yes Maximum Phonation Time MPT Norms: Women (15-25) Men (25-35) Loudness (50-60 dB); Speaking Rate: Oral Reading of Sentences (190 Words Per Minute); Oral Reading of Paragraphs (160-170 WPM); Speaking Rate in Conversation (150-250 WPM) Maximum Phonation Time 15.5 sec Maximum Phonation Time Adequate for Speech Maximum Phonation Time Comments Decreased to 13/1 sec with increased loudness of 69 dB. Jitter/Shimmer Norms: Jitter (Less than or equal to 1.040% - Frequency) Norms: Shimmer (Less than or equal to 3.810% - Amplitude) Jitter 0.24% WNL Shimmer 1.13% WNL Pitch [place] Pitch [place] Reduced Range Breath Support Speaks on Room Air Yes Voice Pitch Range Norms: Women (100-300 Hz) Men (70-250 Hz) Fundamental Frequency Norms: Women (Mean: 225 Hz; Range: 155-334 Hz) Men ( Mean: 128 Hz; Range: 85-196 Hz) Fundamental Frequency 192 Hz WNL Paradoxical Vocal Fold Movement No Indications Resonance Nasal Resonance Normal Oral Resonance Normal Therapeutic Techniques Therapy Tactics Increase Loudness Other Tactics Pt able to produce minimal loudness increase (62 - 69 dB) Findings Findings Moderate Impairment Voice/Resonance Assessment Assessment The pt presents with moderate dysphonia secondary to Parkinson's disease or Parkinsonian disorder, diagnosis pending. Vocal quality is largely WFL but with reduced vocal loudness and pitch range. The pt was stimulable to increasing loudness levels, making her a good candidate for voice therapy. Skilled intervention is medically necessary to increase the pt's ability to communicate her functional wants, needs, and ideas particularly given that her is hard of hearing. Prognosis Rehabilitation Potential Good - Recommendations Treatment Recommended Yes Treatment Frequency/Duration 1x/wk for 12 wks Placement Recommendation Home,Outpatient Therapy Therapy Recommendations [id number] exercises and rate of speech training to improve speech intelligibility . Expressive language therapy targeting increasing processing speeds and word recall strategies. Short Term Goals 1. The pt will participate in further assessment of voice, expressive, receptive, and cognitive communication skills to determine areas of strengths and deficits and to guide POC. 2. The pt will perform oral motor exercises with min cues to improve speech articulation , facial expression, and saliva management. 3. The pt will perform sustained phonation tasks at varying pitches and at or above 70 dB to increase breath support for voice and speech and reduce monoloudness/pitch. 4. The pt will read texts of a variety of lengths at 70 dB or greater in 80% of opportunities to increase speech intelligibility. Penitentiary Goals 1. The pt will manage saliva WFL, as measured by pt report and clinician judgment. 2. The pt will exhibit variation of loudness, pitch, and facial expressions WNL in 80% of opportunities in structured tasks (e.g., reading paragraphs, role playing, etc.). 3. The pt will exhibit variation of loudness, pitch, and facial expressions WNL in at least 70% of opportunities in structured conversation to improve communication skills in the presence of a progressive disease. 4. The pt will produce spontaneous conversation at 68 dB or greater in 80% of opportunities to increase speech intelligibility. Patient/Caregiver Education Patient/Family Education Described results of evaluation,Patient Understanding
--- NOTE | 2020-05-25 14:31 | ST.OPTN ---
Visit Care Team Role Provider Type Helen Burroughs MD Attending Provider Physician Family Provider Primary Care Provider Referring Provider Address: [address] [place] [address], [id number] QUALITY IMPROVEMENT SPECIALIST Treatment Note QUALITY IMPROVEMENT SPECIALIST Treatment Note Start: 04/18/20 14:31 Freq: Status: Active Protocol: Document 05/25/20 14:21 BUCK (Rec: 05/25/20 14:31 BUCK [email or web address]) Speech Pathology Treatment Note Session Time Visit Start Time 13:35 Visit Stop Time 14:20 Total Visit Minutes 45 Visit Information Visit Number 5 Plan of Care Dates 04/18/20 - 07/19/20 Insurance Information Medicare Setting Treatment Setting Outpatient Care Visit Type Note Type Treatment Note Next Note Type Next Note Type Treatment Note General Information General Information This 74-yr-old female has Parkinsonian symptoms and is currently in the process of diagnosis with Neurologist Dr. Harleen Phelan. She is being seen for Speech Pathology services targeting effective communication skills and is seen today for formal voice evaluation. Subjective Observations/Patient Presentation The pt arrived on time and reported having fallen again while reaching for something. She expressed frustration because in her mind she believes she can still do things that her body is no longer able to do. Chief Complaint(s) Speech,Language,Voice Additional Areas of Concern Saliva management Patient Knowledge/Awareness of QUALITY IMPROVEMENT SPECIALIST Role Good in Treatment Objective Short Term Goals 1. The pt will participate in further assessment of voice, expressive, receptive, and cognitive communication skills to determine areas of strengths and deficits and to guide POC. 2. The pt will perform oral motor exercises with min cues to improve speech articulation , facial expression, and saliva management. 3. The pt will perform sustained phonation tasks at varying pitches and at or above 70 dB to increase breath support for voice and speech and reduce monoloudness/pitch. 4. The pt will read texts of a variety of lengths at 70 dB or greater in 80% of opportunities to increase speech intelligibility. Care Home Goals 1. The pt will manage saliva WFL, as measured by pt report and clinician judgment. 2. The pt will exhibit variation of loudness, pitch, and facial expressions WNL in 80% of opportunities in structured tasks (e.g., reading paragraphs, role playing, etc.). 3. The pt will exhibit variation of loudness, pitch, and facial expressions WNL in at least 70% of opportunities in structured conversation to improve communication skills in the presence of a progressive disease. 4. The pt will produce spontaneous conversation at 68 dB or greater in 80% of opportunities to increase speech intelligibility. Treatment Activities Skilled counseling, education and feedback provided to the pt RE acceptance of physical changes and impacts of PD, strategies to increase safety and establishment of external/ internal reminders for safety and well being. Created 2 lists of written reminders for the pt to post in her home to promote acceptance and safety, including: *It's not me, it's my body *Don't reach *Don't bend *Listen to my gut After discussion and rehearsal , the pt recalled the list with min cues. These items were used to initiate a list of Functional Phrases to be included in voice therapy. The pt also identified 2 statements she says each day, one to her dog and the other to her . Will continue development of a list of 10 phrases at next session. Assessment Patient Response to Treatment Good Rehab Potential Good Impairments Identified Dysarthria,Expressive Language ,Oral Motor,Parkinson's Disease,Speech Intelligibility ,Vocal Quality,Other Additional Impairments Identified Saliva management Assessment of Overall Progress Unchanged Assessment of Improvement The pt was participatory and receptive in conversations related to safety. As a means of accepting her physical limitations, the pt benefited from herself as an individual from the body in which she lives. She also verbalized recognition of the risks of bending and reaching, as these activities have frequently lead to falls. She demonstrated good initial recall of these safety reminders; needs reinforcement in order to impact functional behavior. Reviewed with Patient Progress Being Made,Home Exercise Program Patient/Caregiver Understanding Good Plan Treatment Emphasis Next Session Sustained phonation, functional phrases - vocal loudness Therapeutic Contents Client Education,Expressive Language Training,Home Exercise Program,Information Processing,Intelligibility, Swallowing/Feeding,Voice Training Additional Areas of Treatment Saliva Management Provided Patient/Caregiver Instruction Home Exercise Program,Plan of Care,Questions/Concerns Therapy Recommendations Continue with Current Program
--- NOTE | 2020-05-31 12:22 | ST.OPTN ---
Visit Care Team Role Provider Type Helen Burroughs MD Attending Provider Physician Family Provider Primary Care Provider Referring Provider Address: [address] [place] [address], [id number] PITTING MACHINE OPERATOR Treatment Note PITTING MACHINE OPERATOR Treatment Note Start: 04/18/20 14:31 Freq: Status: Active Protocol: Document 05/31/20 12:12 BUCK (Rec: 05/31/20 12:22 [email or web address]) Speech Pathology Treatment Note Session Time Visit Start Time 10:30 Visit Stop Time 11:15 Total Visit Minutes 45 Visit Information Visit Number 12/15 Plan of Care Dates 04/18/20 - 07/19/20 Insurance Information Medicare Setting Treatment Setting Outpatient Care Visit Type Note Type Treatment Note Next Note Type Next Note Type Treatment Note General Information General Information This 74-yr-old female has Parkinsonian symptoms and is currently in the process of diagnosis with Neurologist Dr. Harleen Phelan. She is being seen for Speech Pathology services targeting effective communication skills and is seen today for formal voice evaluation. Subjective Observations/Patient Presentation The pt arrived on time and reported no falls since last seen. She has received a 4WW but ambulated today with cane. She questioned if the 4WW was appropriate for her. PITTING MACHINE OPERATOR encouraged pt to bring 4WW to her next PT appt for assessment. Pt stated she would. Chief Complaint(s) Speech,Language,Voice Additional Areas of Concern Saliva management Patient Knowledge/Awareness of PITTING MACHINE OPERATOR Role Good in Treatment Objective Short Term Goals 1. The pt will participate in further assessment of voice, expressive, receptive, and cognitive communication skills to determine areas of strengths and deficits and to guide POC. 2. The pt will perform oral motor exercises with min cues to improve speech articulation , facial expression, and saliva management. 3. The pt will perform sustained phonation tasks at varying pitches and at or above 70 dB to increase breath support for voice and speech and reduce monoloudness/pitch. 4. The pt will read texts of a variety of lengths at 70 dB or greater in 80% of opportunities to increase speech intelligibility. Fpc Goals 1. The pt will manage saliva WFL, as measured by pt report and clinician judgment. 2. The pt will exhibit variation of loudness, pitch, and facial expressions WNL in 80% of opportunities in structured tasks (e.g., reading paragraphs, role playing, etc.). 3. The pt will exhibit variation of loudness, pitch, and facial expressions WNL in at least 70% of opportunities in structured conversation to improve communication skills in the presence of a progressive disease. 4. The pt will produce spontaneous conversation at 68 dB or greater in 80% of opportunities to increase speech intelligibility. Treatment Activities The pt independently recalled 4/4 safety strategies introduced in last session. She stated these strategies had helped her throughout the week and she had no falls. Completed development of Functional Phrases list. With PITTING MACHINE OPERATOR guidance, the pt completed oral motor exercises targeting lips, cheeks and various aspects of tongue. She completed diadochokinetic tasks with good rate and consistent rhythm of individual phonemes and mildly reduced rate and rhythm with combined phonemes sequence. The pt stated the later was difficult as the sequence did not form a known word. Trialed the pt in use of word pattycake but she stated it was not easier and chose to continue with phoneme sequence . The pt demonstrated good ability to complete anterior lingual press against a tongue depressor, but difficulty using tongue depressor for lateral presses. Much improved with pressure of fingers against cheeks. Pt sustained phonation from 13 - 12.5 sec with avg loudness of 74.3 dB. She benefited from PITTING MACHINE OPERATOR encouragement during sustained phonation. Pt read functional phrases with an avg of 72.3 dB across 3 trials. Skilled feedback and instruction for home practice was provided. Pt verbalized understanding. Assessment Patient Response to Treatment Good Rehab Potential Good Impairments Identified Dysarthria,Expressive Language ,Oral Motor,Parkinson's Disease,Speech Intelligibility ,Vocal Quality,Other Additional Impairments Identified Saliva management Progress Towards Goals Slow Progress Assessment of Overall Progress Improving Assessment of Improvement The pt performed all tasks well with min cues required. Modifications to ease exercise completion were made as needed, and the pt was able to follow all directions. She performed all structured tasks with loudness levels WNL with min-mod prompts. The pt exhibited excellent carryover of information targeted at last session, able to recall safety strategies independently. Reviewed with Patient Progress Being Made,Home Exercise Program Patient/Caregiver Understanding Good Plan Treatment Emphasis Next Session Sustained phonation, functional phrases - vocal loudness Therapeutic Contents Client Education,Expressive Language Training,Home Exercise Program,Information Processing,Intelligibility, Swallowing/Feeding,Voice Training Additional Areas of Treatment Saliva Management Provided Patient/Caregiver Instruction Home Exercise Program,Plan of Care,Questions/Concerns Therapy Recommendations Continue with Current Program
--- NOTE | 2020-07-04 16:44 | ST.OPTN ---
Visit Care Team Role Provider Type Helen Burroughs MD Attending Provider Physician Family Provider Primary Care Provider Referring Provider Address: [address] [place] [address], [id number] BRAIDER SETTER Treatment Note BRAIDER SETTER Treatment Note Start: 04/18/20 14:31 Freq: Status: Active Protocol: Document 06/29/20 18:15 BUCK (Rec: 06/29/20 18:19 BUCK [email or web address]) Speech Pathology Treatment Note Session Time Visit Start Time 10:30 Visit Stop Time 11:30 Total Visit Minutes 60 Visit Information Visit Number 01/14 Plan of Care Dates 04/18/20 - 07/19/20 Insurance Information Medicare Setting Treatment Setting Outpatient Care Visit Type Note Type Treatment Note Next Note Type Next Note Type Treatment Note General Information General Information This 74-yr-old female has Parkinsonian symptoms and is currently in the process of diagnosis with Neurologist Dr. Harleen Phelan. She is being seen for Speech Pathology services targeting effective communication skills and is seen today for formal voice evaluation. Subjective Observations/Patient Presentation Reported falls but claims she is being very careful not to bend over and reach, yet fell on stairs d/t bending over to pick something off the step. Also fell in bathroom when stepping backwards and losing balance. Hit head while falling down steps. Denied changes in communication, cognition, vision, etc. Did not seek medical assistance. was present and available after falls; did not witness. Chief Complaint(s) Speech,Language,Voice Additional Areas of Concern Saliva management Patient Knowledge/Awareness of BRAIDER SETTER Role Good in Treatment Objective Jail Goals 1. The pt will manage saliva WFL, as measured by pt report and clinician judgment. 2. The pt will exhibit variation of loudness, pitch, and facial expressions WNL in 80% of opportunities in structured tasks (e.g., reading paragraphs, role playing, etc.). 3. The pt will exhibit variation of loudness, pitch, and facial expressions WNL in at least 70% of opportunities in structured conversation to improve communication skills in the presence of a progressive disease. 4. The pt will produce spontaneous conversation at 68 dB or greater in 80% of opportunities to increase speech intelligibility. Treatment Activities Pt independently recalled safety mantras from earlier sessions. Pt participated in establishing a visual reminder for posture (Upright) attached to her walker for daily functional use, to increase safety and reduce behaviors that frequently lead to falls. This strategy supports earlier mantras for safety. Established daily schedule to increase OT/PT/ST HEP compliance. Assessment Patient Response to Treatment Good Rehab Potential Good Impairments Identified Dysarthria,Expressive Language ,Oral Motor,Parkinson's Disease,Speech Intelligibility ,Vocal Quality,Other Additional Impairments Identified Saliva management Progress Towards Goals Slow Progress Assessment of Overall Progress Improving Assessment of Improvement The pt is reporting adherence to safety strategies and did independently recall associated mantras; however, she continues to fall, at least sometimes while using behaviors that the mantras are designed to reduce (i.e., bending over to pick items off the floor, even on stairs). This is of great concern as the potential for injury is so high. During today's session, the pt was highly participatory in establishment of external cues to increase safety and reduce risk of falls and to increase HEP compliance with home exercise programs. Reviewed with Patient Goals,Progress Being Made,Home Exercise Program Patient/Caregiver Understanding Good Plan Treatment Emphasis Next Session Sustained phonation, functional phrases - vocal loudness Therapeutic Contents Client Education,Expressive Language Training,Home Exercise Program,Information Processing,Intelligibility, Swallowing/Feeding,Voice Training Additional Areas of Treatment Saliva Management Provided Patient/Caregiver Instruction Home Exercise Program,Plan of Care,Questions/Concerns Therapy Recommendations Continue with Current Program
--- NOTE | 2020-07-13 17:21 | ST.OPTN ---
Visit Care Team Role Provider Type Helen Burroughs MD Attending Provider Physician Family Provider Primary Care Provider Referring Provider Address: [address] [place] [address], [id number] SMALL LOT OPERATOR Treatment Note SMALL LOT OPERATOR Treatment Note Start: 04/18/20 14:31 Freq: Status: Active Protocol: Document 07/06/20 18:24 BUCK (Rec: 07/06/20 18:25 BUCK [email or web address]) Speech Pathology Treatment Note Session Time Visit Start Time 10:30 Visit Stop Time 11:15 Total Visit Minutes 45 Visit Information Visit Number 01/14 Plan of Care Dates 04/18/20 - 07/19/20 Insurance Information Medicare Setting Treatment Setting Outpatient Care Visit Type Note Type Treatment Note Next Note Type Next Note Type Treatment Note General Information General Information This 74-yr-old female has Parkinsonian symptoms and is currently in the process of diagnosis with Neurologist Dr. Harleen Phelan. She is being seen for Speech Pathology services targeting effective communication skills and is seen today for formal voice evaluation. Subjective Observations/Patient Presentation Reported no falls since last visit. Written reminder for upright position remains on walker, and pt states this is helpful. She also stated that she is having difficulty being motivated to perform home exercises (PT/OT/ST) and did not perform over the last week . With pt's permission, this report was shared with pt's PT and OT by this SMALL LOT OPERATOR. Chief Complaint(s) Speech,Language,Voice Additional Areas of Concern Saliva management Patient Knowledge/Awareness of SMALL LOT OPERATOR Role Good in Treatment Objective Short Term Goals 1. The pt will participate in further assessment of voice, expressive, receptive, and cognitive communication skills to determine areas of strengths and deficits and to guide POC. 2. The pt will perform oral motor exercises with min cues to improve speech articulation , facial expression, and saliva management. 3. The pt will perform sustained phonation tasks at varying pitches and at or above 70 dB to increase breath support for voice and speech and reduce monoloudness/pitch. 4. The pt will read texts of a variety of lengths at 70 dB or greater in 80% of opportunities to increase speech intelligibility. Nursing Home Goals 1. The pt will manage saliva WFL, as measured by pt report and clinician judgment. 2. The pt will exhibit variation of loudness, pitch, and facial expressions WNL in 80% of opportunities in structured tasks (e.g., reading paragraphs, role playing, etc.). 3. The pt will exhibit variation of loudness, pitch, and facial expressions WNL in at least 70% of opportunities in structured conversation to improve communication skills in the presence of a progressive disease. 4. The pt will produce spontaneous conversation at 68 dB or greater in 80% of opportunities to increase speech intelligibility. Treatment Activities Consulted with pt to determine topics of interest to incorporate into speech tasks to promote home practice. The pt identified [address] that she performs regularly at different times during the day. This left 3 exercises that have been prescribed: sustained phonation, lingual resistance exercises that the pt stated were difficult to perform with tongue depressor, and reading aloud tasks targeting vocal loudness which are difficult for her to perform d/t vision deficits. Encouraged pt to perform sustained phonation tasks, and she was agreeable. Modified lingual exercise to pressing tongue into cheeks against resistance of fingers. Pt performed and expressed this was much easier. Modified reading task to picture description tasks. The pt follows online group that shares Hooked dog photos. The pt described photos as she scrolled through them on her phone, keeping her vocal loudness to WNL over duration of 5 min. She expressed feeling this was an easier and more enjoyable task, and she committed to increasing frequency of home practice. Assessment Patient Response to Treatment Good Rehab Potential Good Impairments Identified Dysarthria,Expressive Language ,Oral Motor,Parkinson's Disease,Speech Intelligibility ,Vocal Quality,Other Additional Impairments Identified Saliva management Progress Towards Goals Slow Progress Assessment of Overall Progress Improving Assessment of Improvement The pt was collaborative and honest in discussions and tasks today. She was able to perform modifications to HEP tasks appropriately and expressed feeling they were easier and more enjoyable. She committed to increasing home practice. Reviewed with Patient Goals,Progress Being Made,Home Exercise Program Patient/Caregiver Understanding Good Plan Treatment Emphasis Next Session Sustained phonation, functional phrases - vocal loudness Therapeutic Contents Client Education,Expressive Language Training,Home Exercise Program,Information Processing,Intelligibility, Swallowing/Feeding,Voice Training Additional Areas of Treatment Saliva Management Provided Patient/Caregiver Instruction Home Exercise Program,Plan of Care,Questions/Concerns Therapy Recommendations Continue with Current Program
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
--- NOTE | 2020-07-20 11:11 | ST.OPTN ---
Visit Care Team Role Provider Type Helen Burroughs MD Attending Provider Physician Family Provider Primary Care Provider Referring Provider Address: [address] [place] [address], [id number] BRAKE RELINER Treatment Note BRAKE RELINER Treatment Note Start: 04/18/20 14:31 Freq: Status: Active Protocol: Document 07/20/20 11:10 BUCK (Rec: 07/20/20 11:11 BUCK [email or web address]) Speech Pathology Treatment Note Subjective Observations/Patient Presentation No Show. Called pt and left msg on VM.
--- NOTE | 2020-07-27 17:11 | ST.OPTN ---
Visit Care Team Role Provider Type Helen Burroughs MD Attending Provider Physician Family Provider Primary Care Provider Referring Provider Address: [address] [place] [address], [id number] EDITOR IN CHIEF NEWSPAPER Treatment Note EDITOR IN CHIEF NEWSPAPER Treatment Note Start: 04/18/20 14:31 Freq: Status: Active Protocol: Document 07/27/20 16:48 BUCK (Rec: 07/27/20 17:11 [email or web address] [email or web address]) Speech Pathology Treatment Note Session Time Visit Start Time 10:30 Visit Stop Time 11:20 Total Visit Minutes 50 Visit Information Visit Number 03/17 Plan of Care Dates 04/18/20 - 07/19/20 Insurance Information Medicare Setting Treatment Setting Outpatient Care Visit Type Note Type Treatment Note Next Note Type Next Note Type Progress Note General Information General Information This 74-yr-old female has Parkinsonian symptoms and is currently in the process of diagnosis with Neurologist Dr. Harleen Phelan. She is being seen for Speech Pathology services targeting effective communication skills and is seen today for formal voice evaluation. Subjective Observations/Patient Presentation The pt arrived on time. She reported that last week's appt fell off the calendar and she apologized for missing it. She reported falling once ( yesterday) in the last 2 wks. She stated she felt dizzy after exercising and fell on her side. She denied injury. The pt also reported that information provided in writing by the therapist at last visit was received well by her and that he has been more gentle and kinder since then. The pt reported difficulty with expressive language, sometimes skipping words in speech, other times saying unintended things such as no when she meands yes. This has been frustrating her. Chief Complaint(s) Speech,Language,Voice Additional Areas of Concern Saliva management Patient Knowledge/Awareness of EDITOR IN CHIEF NEWSPAPER Role Good in Treatment Objective Short Term Goals 1. The pt will participate in further assessment of voice, expressive, receptive, and cognitive communication skills to determine areas of strengths and deficits and to guide POC. 2. The pt will perform oral motor exercises with min cues to improve speech articulation , facial expression, and saliva management. 3. The pt will perform sustained phonation tasks at varying pitches and at or above 70 dB to increase breath support for voice and speech and reduce monoloudness/pitch. 4. The pt will read texts of a variety of lengths at 70 dB or greater in 80% of opportunities to increase speech intelligibility. Scientific Artist Goals 1. The pt will manage saliva WFL, as measured by pt report and clinician judgment. 2. The pt will exhibit variation of loudness, pitch, and facial expressions WNL in 80% of opportunities in structured tasks (e.g., reading paragraphs, role playing, etc.). 3. The pt will exhibit variation of loudness, pitch, and facial expressions WNL in at least 70% of opportunities in structured conversation to improve communication skills in the presence of a progressive disease. 4. The pt will produce spontaneous conversation at 68 dB or greater in 80% of opportunities to increase speech intelligibility. Treatment Activities Consulted with the pt RE saliva management. She reported it being under control, as she has increased her awareness of oral saliva and been swallowing more frequently. She had one daytime drooling episode last week but otherwise only at night when sleeping. Education provided RE expressive language changes that sometimes occur with PD. Trained pt in use of pacing board to reduce rate of speech and increase attention to words and intended messages. The pt produced scripted sentences while tapping the table with each word. Initially, she exhibited difficulty synchronizing words and tapping but improved with practice. A pacing board was provided for home practice using both scripted and spontaneous speech. Assessment Patient Response to Treatment Good Rehab Potential Good Impairments Identified Dysarthria,Expressive Language ,Oral Motor,Parkinson's Disease,Speech Intelligibility ,Vocal Quality,Other Additional Impairments Identified Saliva management Progress Towards Goals Good Progress Assessment of Overall Progress Improving Assessment of Improvement The pt was responsive to education and training of pacing board use with improved accuracy with practice. While using pacing board, the pt's speech was mildly slowed and halting, which is expected to improve to more natural fluency as the pt becomes more familiar and proficient with its use. Needs reinforcement. Reviewed with Patient Goals,Progress Being Made,Home Exercise Program Patient/Caregiver Understanding Good Plan Therapeutic Contents Client Education,Expressive Language Training,Home Exercise Program,Information Processing,Intelligibility, Swallowing/Feeding,Voice Training Additional Areas of Treatment Saliva Management Provided Patient/Caregiver Instruction Home Exercise Program,Plan of Care,Questions/Concerns Therapy Recommendations Continue with Current Program
--- NOTE | 2020-08-03 12:08 | ST.OPTN ---
Visit Care Team Role Provider Type Helen Burroughs MD Attending Provider Physician Family Provider Primary Care Provider Referring Provider Address: [address] [place] [address], [id number] PRICING ASSOCIATE Treatment Note PRICING ASSOCIATE Treatment Note Start: 04/18/20 14:31 Freq: Status: Active Protocol: Document 07/27/20 16:48 BUCK (Rec: 07/27/20 17:11 [email or web address] [email or web address]) Speech Pathology Treatment Note Session Time Visit Start Time 10:30 Visit Stop Time 11:20 Total Visit Minutes 50 Visit Information Visit Number 03/17 Plan of Care Dates 07/27/20 - 10/25/20 Insurance Information Medicare Setting Treatment Setting Outpatient Care Visit Type Note Type Progress Note Next Note Type Next Note Type Treatment Note General Information General Information This 74-yr-old female has Parkinsonian symptoms and is currently in the process of diagnosis with Neurologist Dr. Harleen Phelan. She is being seen for Speech Pathology services targeting effective communication skills and is seen today for formal voice evaluation. Subjective Observations/Patient Presentation The pt arrived on time. She reported that last week's appt fell off the calendar and she apologized for missing it. She reported falling once ( yesterday) in the last 2 wks. She stated she felt dizzy after exercising and fell on her side. She denied injury. The pt also reported that information provided in writing by the therapist at last visit was received well by her and that he has been more gentle and kinder since then. The pt reported difficulty with expressive language, sometimes skipping words in speech, other times saying unintended things such as no when she meands yes. This has been frustrating her. Chief Complaint(s) Speech,Language,Voice Additional Areas of Concern Saliva management Patient Knowledge/Awareness of PRICING ASSOCIATE Role Good in Treatment Objective Short Term Goals 1. The pt will participate in further assessment of voice, expressive, receptive, and cognitive communication skills to determine areas of strengths and deficits and to guide POC. GOAL MET 2. The pt will perform oral motor exercises with min cues to improve speech articulation , facial expression, and saliva management. GOAL MET 3. The pt will perform sustained phonation tasks at varying pitches and at or above 70 dB to increase breath support for voice and speech and reduce monoloudness/pitch. MAKING PROGRESS 4. The pt will read texts of a variety of lengths at 70 dB or greater in 80% of opportunities to increase speech intelligibility. MAKING PROGRESS NEW GOAL: 5. Using a pacing board, the pt will produce scripted speech in tandem to finger tapping to increase control of expressive language and reduce episodes of incorrect or missing words in functional speech. Fpc Goals 1. The pt will manage saliva WFL, as measured by pt report and clinician judgment. GOAL MET 2. The pt will exhibit variation of loudness, pitch, and facial expressions WNL in 80% of opportunities in structured tasks (e.g., reading paragraphs, role playing, etc.). GOAL MET 3. The pt will exhibit variation of loudness, pitch, and facial expressions WNL in at least 70% of opportunities in structured conversation to improve communication skills in the presence of a progressive disease. MAKING PROGRESS 4. The pt will produce spontaneous conversation at 68 dB or greater in 80% of opportunities to increase speech intelligibility. MAKING PROGRESS NEW GOAL: 5. Using finger tapping strategy as needed, the pt will control rate of speech in order to increase attention to word choices to improve expressive language and reduce episodes of missing or misuse of words in functional communication. Treatment Activities Consulted with the pt RE saliva management. She reported it being under control, as she has increased her awareness of oral saliva and been swallowing more frequently. She had one daytime drooling episode last week but otherwise only at night when sleeping. Education provided RE expressive language changes that sometimes occur with PD. Trained pt in use of pacing board to reduce rate of speech and increase attention to words and intended messages. The pt produced scripted sentences while tapping the table with each word. Initially, she exhibited difficulty synchronizing words and tapping but improved with practice. A pacing board was provided for home practice using both scripted and spontaneous speech. Assessment Patient Response to Treatment Good Rehab Potential Good Impairments Identified Dysarthria,Expressive Language ,Oral Motor,Parkinson's Disease,Speech Intelligibility ,Vocal Quality,Other Additional Impairments Identified Saliva management Progress Towards Goals Good Progress Assessment of Overall Progress Improving Assessment of Improvement The pt was responsive to education and training of pacing board use with improved accuracy with practice. While using pacing board, the pt's speech was mildly slowed and halting, which is expected to improve to more natural fluency as the pt becomes more familiar and proficient with its use. Needs reinforcement. Over the course of treatment, the pt has made progress with saliva management, reporting only occasional drooling episodes, most of which occur while sleeping (WFL). The pt's conversational loudness levels are WNL for 1:1 communication in a quiet environment. Further training is necessary to increase loudness levels and stamina for loudness in busier environments and/or conversation partners who have hearing impairment, such as the pt's . Early in treatment course, the pt's accompanied her and education was provided to the couple RE strategies to improve communication between the two, including strategies addressing speakers with weaker voices and partners who are hard of hearing. The pt reports the couple are implementing these strategies with improved communication results. The pt has also reported frustration on the part of her regarding the pt's frequent falls. Per pt report, this frustration often is expressed via harsh voice/ language aimed at the patient. Additional communication strategies and education RE potential impacts of PD on couples and families was provided in writing for the couple to review at home. The pt reported this was helpful and that her has modified his words and tone with her; however, the couple would likely benefit from marriage counseling with a therapist trained for assisting couples in major life transitions, particularly with diseases. Other targets in treatment have included external aids to remind the pt of strategies to decrease fall risk, including signs at home and on her walker to remain upright and to avoid mending and reaching and to follow my gut in moments when she has acted impulsively against her inner judgment. The pt can recite all of these, although she continues to fall frequently. She continues to work with PT to improve balance and otherwise reduce fall risk. In general, the pt is making slow but good progress toward speech therapy goals. Continued skilled intervention is medically necessary to improve the pt's vocal loudness, facial expression and expressive language in order to maintain highest level of independence, ability to communicate, and quality of life. Reviewed with Patient Goals,Progress Being Made,Home Exercise Program Patient/Caregiver Understanding Good Plan Amount of Therapy Recommended 3-4 Months Frequency of Treatment Once a Week Length of Session 45 Minutes Treatment Emphasis Next Session Continue pacing board training . Therapeutic Contents Client Education,Expressive Language Training,Home Exercise Program,Information Processing,Intelligibility, Swallowing/Feeding,Voice Training Additional Areas of Treatment Saliva Management Provided Patient/Caregiver Instruction Home Exercise Program,Plan of Care,Questions/Concerns Therapy Recommendations Continue with Current Program Suggested Referral Other Other Referrals Couples counseling for pt and her
--- NOTE | 2020-08-03 12:23 | ST.OPTN ---
Visit Care Team Role Provider Type Helen Burroughs MD Attending Provider Physician Family Provider Primary Care Provider Referring Provider Address: [address] [place] [address], [id number] RADIOLOGICAL EQUIPMENT SPECIALIST Treatment Note RADIOLOGICAL EQUIPMENT SPECIALIST Treatment Note Start: 04/18/20 14:31 Freq: Status: Active Protocol: Document 08/03/20 12:08 BUCK (Rec: 08/03/20 12:23 [email or web address] [email or web address]) Speech Pathology Treatment Note Session Time Visit Start Time 10:30 Visit Stop Time 11:20 Total Visit Minutes 50 Visit Information Visit Number 07/17 Plan of Care Dates 07/27/20 - 10/25/20 Insurance Information Medicare Setting Treatment Setting Outpatient Care Visit Type Note Type Treatment Note Next Note Type Next Note Type Treatment Note General Information General Information This 74-yr-old female has Parkinsonian symptoms and is currently in the process of diagnosis with Neurologist Dr. Harleen Phelan. She is being seen for Speech Pathology services targeting effective communication skills and is seen today for formal voice evaluation. Subjective Observations/Patient Presentation The pt arrived on time. She reported having fallen once in the last week (yesterday) without injury. She lost balance while getting off a stool at the kitchen counter. She also reported the fall to her PT. Chief Complaint(s) Speech,Language,Voice Additional Areas of Concern Saliva management Patient Knowledge/Awareness of RADIOLOGICAL EQUIPMENT SPECIALIST Role Good in Treatment Objective Short Term Goals 1. The pt will participate in further assessment of voice, expressive, receptive, and cognitive communication skills to determine areas of strengths and deficits and to guide POC. GOAL MET 2. The pt will perform oral motor exercises with min cues to improve speech articulation , facial expression, and saliva management. GOAL MET 3. The pt will perform sustained phonation tasks at varying pitches and at or above 70 dB to increase breath support for voice and speech and reduce monoloudness/pitch. MAKING PROGRESS 4. The pt will read texts of a variety of lengths at 70 dB or greater in 80% of opportunities to increase speech intelligibility. MAKING PROGRESS NEW GOAL: 5. Using a pacing board, the pt will produce scripted speech in tandem to finger tapping to increase control of expressive language and reduce episodes of incorrect or missing words in functional speech. Cloth Winder Goals 1. The pt will manage saliva WFL, as measured by pt report and clinician judgment. GOAL MET 2. The pt will exhibit variation of loudness, pitch, and facial expressions WNL in 80% of opportunities in structured tasks (e.g., reading paragraphs, role playing, etc.). GOAL MET 3. The pt will exhibit variation of loudness, pitch, and facial expressions WNL in at least 70% of opportunities in structured conversation to improve communication skills in the presence of a progressive disease. MAKING PROGRESS 4. The pt will produce spontaneous conversation at 68 dB or greater in 80% of opportunities to increase speech intelligibility. MAKING PROGRESS NEW GOAL: 5. Using finger tapping strategy as needed, the pt will control rate of speech in order to increase attention to word choices to improve expressive language and reduce episodes of missing or misuse of words in functional communication. Treatment Activities Continued training pt in use of pacing board to reduce rate of speech to facilitate complete and accurate expression of thoughts and word choices. Using functional phrases from the pt's life ( things she says to her dog), the pt tapped out sentences initially with inconsistent coordination between finger tapping and verbalizations. This improved with practice and modifications to include functional words and content words in single taps (e.g., go *for*awalk vs go*for*a*walk) in order to simplify dual task coordination. The pt transitioned from tapping on the pacing board to tapping on leg, and then from tapping scripted speech to spontaneous conversation. The latter again resulted in moderate incoordination between taps and words, but clearly demonstrated progress in understanding and use of the technique. Materials and recommendations for home practice were provided. Assessment Patient Response to Treatment Good Rehab Potential Good Impairments Identified Dysarthria,Expressive Language ,Oral Motor,Parkinson's Disease,Speech Intelligibility ,Vocal Quality,Other Additional Impairments Identified Saliva management Progress Towards Goals Good Progress Assessment of Overall Progress Improving Assessment of Improvement The pt is making good progress with use of pacing board technique, advancing from scripted speech on visual board to spontaneous speech while tapping on leg. Practice and reinforcement is required , but the pt did exhibit independent use in a conversation with the RADIOLOGICAL EQUIPMENT SPECIALIST. Reviewed with Patient Goals,Progress Being Made,Home Exercise Program Patient/Caregiver Understanding Good Plan Amount of Therapy Recommended 3-4 Months Frequency of Treatment Once a Week Length of Session 45 Minutes Treatment Emphasis Next Session Continue pacing board training . Review goals with pt. Therapeutic Contents Client Education,Expressive Language Training,Home Exercise Program,Information Processing,Intelligibility, Swallowing/Feeding,Voice Training Additional Areas of Treatment Saliva Management Provided Patient/Caregiver Instruction Home Exercise Program,Plan of Care,Questions/Concerns Therapy Recommendations Continue with Current Program Suggested Referral Other Other Referrals Couples counseling for pt and her
--- NOTE | 2020-08-10 17:16 | ST.OPTN ---
Visit Care Team Role Provider Type Helen Burroughs MD Attending Provider Physician Family Provider Primary Care Provider Referring Provider Address: [address] [place] [address], [id number] PLATFORM BEATER Treatment Note PLATFORM BEATER Treatment Note Start: 04/18/20 14:31 Freq: Status: Active Protocol: Document 08/10/20 16:44 BUCK (Rec: 08/10/20 17:16 BUCK [email or web address]) Speech Pathology Treatment Note Session Time Visit Start Time 10:30 Visit Stop Time 11:20 Total Visit Minutes 45 Visit Information Visit Number 08/17 Plan of Care Dates 07/27/20 - 10/25/20 Insurance Information Medicare Setting Treatment Setting Outpatient Care Visit Type Note Type Treatment Note Next Note Type Next Note Type Treatment Note General Information General Information This 74-yr-old female has Parkinsonian symptoms and is currently in the process of diagnosis with Neurologist Dr. Harleen Phelan. She is being seen for Speech Pathology services targeting effective communication skills and is seen today for formal voice evaluation. Subjective Observations/Patient Presentation The pt arrived on time. She reported having fallen once in the last week without injury. She lost balance while moving a stool by the kitchen counter. She also reported the fall to her PT, who had informed the PLATFORM BEATER of the fall yesterday after the pt's PT appt. PT also informed that during a dual task exercise during that session, the pt was unable to count backwards from 100 by 2s, which raised concerns about the pt's cognitive skills. Chief Complaint(s) Speech,Language,Voice Additional Areas of Concern Saliva management Patient Knowledge/Awareness of PLATFORM BEATER Role Good in Treatment Objective Short Term Goals 1. The pt will perform sustained phonation tasks at varying pitches and at or above 70 dB to increase breath support for voice and speech and reduce monoloudness/pitch. MAKING PROGRESS 2. The pt will read texts of a variety of lengths at 70 dB or greater in 80% of opportunities to increase speech intelligibility. MAKING PROGRESS 3. Using a pacing board, the pt will produce scripted speech in tandem to finger tapping to increase control of expressive language and reduce episodes of incorrect or missing words in functional speech. 4. Given a concrete category, the pt will name 12 items in 60 sec to improve organization of thought and expressive language processing. 5. The pt will complete simple mental flexibility tasks (e.g ., trail making tasks, listing items in various sequences, etc.) to improve executive function and information processing skills. Mcfp Goals 1. The pt will exhibit variation of loudness, pitch, and facial expressions WNL in at least 70% of opportunities in structured conversation to improve communication skills in the presence of a progressive disease. MAKING PROGRESS 2. The pt will produce spontaneous conversation at 68 dB or greater in 80% of opportunities to increase speech intelligibility. MAKING PROGRESS 3. Using finger tapping strategy as needed, the pt will control rate of speech in order to increase attention to word choices to improve expressive language and reduce episodes of missing or misuse of words in functional communication. 4. Given abstract categories, the pt will name 8 items in 60 sec to improve organization of thought and expressive language processing. 5. The pt will complete mental flexibility tasks of moderate complexity to improve executive function and information processing skills. Treatment Activities Consulted with pt RE cogntive skills involving thought organization, formulation and mental flexibility and potential impacts of PD on cognitive skills. The pt reporte ongoing challenges in organizing thoughts for expressive language and reported that the tapping technique trained and practiced in the last 2 sessions were helpful. She was agreeable to cognitive screening using MoCA (v. 8.3), which was administered with a score of 21/30 pts (26 or greater is normal). She exhibited greatest difficulty completing visuospatial tasks secondary to impaired vision and with executive functions and mental flexibility in trail making task, subtraction task (subtracting by 7s), and naming words beginning with b (6 words in 60 sec). Additionally, she altered words in 1/2 sentence repetition tasks, recalled 4/5 words in a list after a delay , and stated the date as Aug 11 (acutally Aug 10). Skilled feedback was provided with recommendation to include cognitive training in thought organization and mental flexibility, which will also aid her in organizing thoughts into speech. The pt was in agreement. New goals established. Assessment Patient Response to Treatment Good Rehab Potential Good Impairments Identified Dysarthria,Expressive Language ,Oral Motor,Parkinson's Disease,Speech Intelligibility ,Vocal Quality,Other Additional Impairments Identified Saliva management Progress Towards Goals Good Progress Assessment of Overall Progress Improving Assessment of Improvement The pt is making good progress with use of pacing board technique, and demonstrated independent use of it in conversations with PLATFORM BEATER. She demonstrated mild-moderate impairments in areas of executive function, thought organization/flexibility and slowed information processing during completion of MoCA cognitive screening tool. Addition of cognitive- linguistic skills into therapy is medically necessary to improve cognitive linguistic skills necessary to complete ADLs and converstational tasks of moderate or greater complexity. Reviewed with Patient Goals,Progress Being Made,Home Exercise Program Patient/Caregiver Understanding Good Plan Amount of Therapy Recommended 3-4 Months Frequency of Treatment Once a Week Length of Session 45 Minutes Treatment Emphasis Next Session Initiate cognitive-linguistic therapy Therapeutic Contents Client Education,Expressive Language Training,Home Exercise Program,Information Processing,Intelligibility, Swallowing/Feeding,Voice Training Additional Areas of Treatment Saliva Management Provided Patient/Caregiver Instruction Home Exercise Program,Plan of Care,Questions/Concerns Therapy Recommendations Continue with Current Program Suggested Referral Other Other Referrals Couples counseling for pt and her
--- NOTE | 2020-08-24 11:39 | ST.OPTN ---
Visit Care Team Role Provider Type Helen Burroughs MD Attending Provider Physician Family Provider Primary Care Provider Referring Provider Address: [address] [place] [address], [id number] ETL ANALYST DEVELOPER Treatment Note ETL ANALYST DEVELOPER Treatment Note Start: 04/18/20 14:31 Freq: Status: Active Protocol: Document 08/24/20 11:30 BUCK (Rec: 08/24/20 11:39 BUCK [email or web address]) Speech Pathology Treatment Note Session Time Visit Start Time 10:30 Visit Stop Time 11:25 Total Visit Minutes 55 Visit Information Visit Number 09/14 Plan of Care Dates 07/27/20 - 10/25/20 Insurance Information Medicare Setting Treatment Setting Outpatient Care Visit Type Note Type Treatment Note Next Note Type Next Note Type Treatment Note General Information General Information This 74-yr-old female has Parkinsonian symptoms and is currently in the process of diagnosis with Neurologist Dr. Harleen Phelan. She is being seen for Speech Pathology services targeting effective communication skills and is seen today for formal voice evaluation. Subjective Observations/Patient Presentation The pt arrived on time. She reported no falls in the last 5 days. No new complaints. Chief Complaint(s) Speech,Language,Voice Additional Areas of Concern Saliva management Patient Knowledge/Awareness of ETL ANALYST DEVELOPER Role Good in Treatment Objective Short Term Goals 1. The pt will perform sustained phonation tasks at varying pitches and at or above 70 dB to increase breath support for voice and speech and reduce monoloudness/pitch. MAKING PROGRESS 2. The pt will read texts of a variety of lengths at 70 dB or greater in 80% of opportunities to increase speech intelligibility. MAKING PROGRESS 3. Using a pacing board, the pt will produce scripted speech in tandem to finger tapping to increase control of expressive language and reduce episodes of incorrect or missing words in functional speech. 4. Given a concrete category, the pt will name 12 items in 60 sec to improve organization of thought and expressive language processing. 5. The pt will complete simple mental flexibility tasks (e.g ., trail making tasks, listing items in various sequences, etc.) to improve executive function and information processing skills. Display Trimmer Goals 1. The pt will exhibit variation of loudness, pitch, and facial expressions WNL in at least 70% of opportunities in structured conversation to improve communication skills in the presence of a progressive disease. MAKING PROGRESS 2. The pt will produce spontaneous conversation at 68 dB or greater in 80% of opportunities to increase speech intelligibility. MAKING PROGRESS 3. Using finger tapping strategy as needed, the pt will control rate of speech in order to increase attention to word choices to improve expressive language and reduce episodes of missing or misuse of words in functional communication. 4. Given abstract categories, the pt will name 8 items in 60 sec to improve organization of thought and expressive language processing. 5. The pt will complete mental flexibility tasks of moderate complexity to improve executive function and information processing skills. Treatment Activities Initiated training in thought organization using categorical naming tasks with education and feedback RE carryover to conversational skills. Instructed pt in keeping thoughts simple and organized, using sub-categories for categorical naming task, and focusing on main points in conversation, discussing details as they arise in conversation. Given concrete categories, the pt identified 7+ sub- categories and, with min-mod verbal prompts, listed 21 animals and 31 foods (untimed) . Skilled feedback RE transfer of skills to conversation was provided. The pt offered examples from her own conversations and ideas for minimizing confusion, demonstrating understanding. HEP tasks provided. Assessment Patient Response to Treatment Good Rehab Potential Good Impairments Identified Dysarthria,Expressive Language ,Oral Motor,Parkinson's Disease,Speech Intelligibility ,Vocal Quality,Other Additional Impairments Identified Saliva management Progress Towards Goals Good Progress Assessment of Overall Progress Improving Assessment of Improvement The pt was responsive to education and training today, able to organized broad concrete topics into specific sub-categories and generate large numbers of items in each . In discussions of organizing thoughts in spontaneous conversations, she offered personal examples, demonstrating understanding. The pt continues to report benefit from tapping method also to maintain thought organization in conjunction with speech. Reviewed with Patient Goals,Progress Being Made,Home Exercise Program Patient/Caregiver Understanding Good Plan Amount of Therapy Recommended 3-4 Months Frequency of Treatment Once a Week Length of Session 45 Minutes Treatment Emphasis Next Session Initiate cognitive-linguistic therapy Therapeutic Contents Client Education,Expressive Language Training,Home Exercise Program,Information Processing,Intelligibility, Swallowing/Feeding,Voice Training Additional Areas of Treatment Saliva Management Provided Patient/Caregiver Instruction Home Exercise Program,Plan of Care,Questions/Concerns Therapy Recommendations Continue with Current Program Suggested Referral Other Other Referrals Couples counseling for pt and her
--- NOTE | 2020-08-30 17:27 | ST.OPTN ---
Visit Care Team Role Provider Type Helen Burroughs MD Attending Provider Physician Family Provider Primary Care Provider Referring Provider Address: [address] [place] [address], [id number] [employer]PRESENT[employer]IVE Treatment Note [employer] REPRESENTATIVE Treatment Note Start: 04/18/20 14:31 Freq: Status: Active Protocol: Document 08/30/20 17:15 BUCK (Rec: 08/30/20 17:27 [email or web address]) Speech Pathology Treatment Note Session Time Visit Start Time 15:30 Visit Stop Time 16:20 Total Visit Minutes 50 Visit Information Visit Number 10/15 Plan of Care Dates 07/27/20 - 10/25/20 Insurance Information Medicare Setting Treatment Setting Outpatient Care Visit Type Note Type Treatment Note Next Note Type Next Note Type Treatment Note General Information General Information This 74-yr-old female has Parkinsonian symptoms and is currently in the process of diagnosis with Neurologist Dr. Harleen Phelan. She is being seen for Speech Pathology services targeting effective communication skills. Subjective Observations/Patient Presentation The pt arrived on time with her arm in a sling d/t broken clavical resulting from a fall since last visit. Pt reported she will be receiving prism eye glasses from othalmologist within the next 1.5 wks. Chief Complaint(s) Speech,Language,Voice Additional Areas of Concern Saliva management Patient Knowledge/Awareness of [employer] REPRESENTATIVE Role Good in Treatment Objective Short Term Goals 1. The pt will perform sustained phonation tasks at varying pitches and at or above 70 dB to increase breath support for voice and speech and reduce monoloudness/pitch. MAKING PROGRESS 2. The pt will read texts of a variety of lengths at 70 dB or greater in 80% of opportunities to increase speech intelligibility. MAKING PROGRESS 3. Using a pacing board, the pt will produce scripted speech in tandem to finger tapping to increase control of expressive language and reduce episodes of incorrect or missing words in functional speech. 4. Given a concrete category, the pt will name 12 items in 60 sec to improve organization of thought and expressive language processing. 5. The pt will complete simple mental flexibility tasks (e.g ., trail making tasks, listing items in various sequences, etc.) to improve executive function and information processing skills. Fdc Goals 1. The pt will exhibit variation of loudness, pitch, and facial expressions WNL in at least 70% of opportunities in structured conversation to improve communication skills in the presence of a progressive disease. MAKING PROGRESS 2. The pt will produce spontaneous conversation at 68 dB or greater in 80% of opportunities to increase speech intelligibility. MAKING PROGRESS 3. Using finger tapping strategy as needed, the pt will control rate of speech in order to increase attention to word choices to improve expressive language and reduce episodes of missing or misuse of words in functional communication. 4. Given abstract categories, the pt will name 8 items in 60 sec to improve organization of thought and expressive language processing. 5. The pt will complete mental flexibility tasks of moderate complexity to improve executive function and information processing skills. Treatment Activities Received updated case hx from pt RE recent fall. She has been instructed to maintain a shoulders-back posture to promote optimal healing of clavical. Pt expressed concern of remembering to do this and felt that external reminders in her home would be helpful. Those were made by [employer] SAL[employer] REPRESENTATIVE on sticky notes that the pt could post around her home. Education provided RE breath support for voice, swallow and cough, as related to potential restriction d/t broken clavical. The pt denied difficulty taking breath and denied pain with deep and tidal breathing. Pt performed deep breathing with phonation task and exhibited no interference from injury in doing so. Phonation time ranged from 9-11.9s with avg loudness levels ranging from 74-77 dB. Pt benefited from visual biofeedback using Voice Stamper Blocker iza, where she could monitor and modify her loudness levels to increase and maintain loudness. With biofeedback, she was able to maintain consistent loudness throughout repetitions. Assessment Patient Response to Treatment Good Rehab Potential Good Impairments Identified Dysarthria,Expressive Language ,Oral Motor,Parkinson's Disease,Speech Intelligibility ,Vocal Quality,Other Additional Impairments Identified Saliva management Progress Towards Goals Good Progress Assessment of Overall Progress Improving Assessment of Improvement The pt was responsive to education and continued training in vocal loudness. She increased loudness in phonation tasks from 74-77 dB and improved consistency of loudness with use of visual biofeedback. She continues be a high fall risk and expressed frustration with this. Hopefully corrective prism lenses with improve eyesight issues that may contribute to falling, as well as allow the pt to resume reading, which she is limited in doing. Reviewed with Patient Goals,Progress Being Made,Home Exercise Program Patient/Caregiver Understanding Good Plan Amount of Therapy Recommended 3-4 Months Frequency of Treatment Once a Week Length of Session 45 Minutes Treatment Emphasis Next Session Initiate cognitive-linguistic therapy Therapeutic Contents Client Education,Expressive Language Training,Home Exercise Program,Information Processing,Intelligibility, Swallowing/Feeding,Voice Training Additional Areas of Treatment Saliva Management Provided Patient/Caregiver Instruction Home Exercise Program,Plan of Care,Questions/Concerns Therapy Recommendations Continue with Current Program Suggested Referral Other Other Referrals Couples counseling for pt and her
--- NOTE | 2020-09-20 15:48 | ST.OPTN ---
Visit Care Team Role Provider Type Helen Burroughs MD Attending Provider Physician Family Provider Primary Care Provider Referring Provider Address: [address] [place] [address], [id number] H[employer] AND [employer]YING ROOM ATTENDANT Treatment Note HAT AND [employer] DRYING ROOM ATTENDANT Treatment Note Start: 04/18/20 14:31 Freq: Status: Active Protocol: Document 09/20/20 15:19 BUCK (Rec: 09/20/20 15:47 BUCK [email or web address]) Speech Pathology Treatment Note Session Time Visit Start Time 15:30 Visit Stop Time 16:15 Total Visit Minutes 45 Visit Information Visit Number 11/14 Plan of Care Dates 07/27/20 - 10/25/20 Insurance Information Medicare Setting Treatment Setting Outpatient Care Visit Type Note Type Treatment Note Next Note Type Next Note Type Treatment Note General Information General Information This 74-yr-old female has Parkinsonian symptoms and is currently in the process of diagnosis with Neurologist Dr. Harleen Phelan. She is being seen for Speech Pathology services targeting effective communication skills. Subjective Observations/Patient Presentation The pt arrived on time. Continues to wear a sling d/t broken clavical. The pt did report falling x2 earlier this week but was not injured. She continues to work with PT on balance and strength. The pt also was wearing new glasses that are bifocal prescription with prisms. She reports these are helping her to see her environment better. She has attempted reading but found she was confused by the content, which focused on medications and chemistry related to PD including names of chemicals with which she was unfamiliar. This raised concerns for her about her reading comprehension skills. 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 The pt will perform sustained phonation tasks at varying pitches and at or above 70 dB to increase breath support for voice and speech and reduce monoloudness/pitch. MAKING PROGRESS 2. The pt will read texts of a variety of lengths at 70 dB or greater in 80% of opportunities to increase speech intelligibility. MAKING PROGRESS 3. Using a pacing board, the pt will produce scripted speech in tandem to finger tapping to increase control of expressive language and reduce episodes of incorrect or missing words in functional speech. 4. Given a concrete category, the pt will name 12 items in 60 sec to improve organization of thought and expressive language processing. 5. The pt will complete simple mental flexibility tasks (e.g ., trail making tasks, listing items in various sequences, etc.) to improve executive function and information processing skills. 6. Using visual aids as needed , the pt will read simple texts with 90% accuracy to improve reading comprehension skills. Tie In Hand Goals 1. The pt will exhibit variation of loudness, pitch, and facial expressions WNL in at least 70% of opportunities in structured conversation to improve communication skills in the presence of a progressive disease. MAKING PROGRESS 2. The pt will produce spontaneous conversation at 68 dB or greater in 80% of opportunities to increase speech intelligibility. MAKING PROGRESS 3. Using finger tapping strategy as needed, the pt will control rate of speech in order to increase attention to word choices to improve expressive language and reduce episodes of missing or misuse of words in functional communication. 4. Given abstract categories, the pt will name 8 items in 60 sec to improve organization of thought and expressive language processing. 5. The pt will complete mental flexibility tasks of moderate complexity to improve executive function and information processing skills. 6. Using visual aids as necessary, the pt will demonstrate understanding of simple written texts (e.g., newspaper articles) by retelling stories and/or answering open-ended questions with 80% acc to improve reading comprehension and confidence. Treatment Activities Assessed pt's reading skills with short story from [employer]. Given the text as presented in the magazine (~11 pt font), the pt read text using her finger as visual guide. Accuracy of reading was ~60%; the pt skipped many words, freqently at left margin to center, and frequently substituted words for other words/phrases that were at times, but not always, synonymous with given text. Attempted to highlight left margin with a colored vertical line and provided a visual guide to assist in line orientation. These strategies improved accuracy minimally, but the pt continued with the same types of errors. The text was then copied to enlarge print to ~16 pt font. Given larger text, the same visual aids and mod prompts to read the words that are there, the pt read text with ~80% acc , with 19 word/phrase errors occurring over 5 paragraphs. When prompted to reread text for accuracy, the pt was able to do so, indicating visual acuity adequate for reading, with mild left side neglect apparent. Suspect attention deficits contribute to the pt' s errors. Upon completion of reading, the pt retold the story and answered referential questions with 67% acc. Skilled feedback was provided related to left side neglect, attention skills as related to reading, and strategies to improve visual attention. The pt verbalized understanding. A highlighted reading guide was provided to the pt for home use. Assessment Patient Response to Treatment Good Rehab Potential Good Impairments Identified Attention,Cognitive-Linguistic Skills,Dysarthria,Expressive Language,Oral Motor,Parkinson' s Disease,Reading Comprehension,Speech Intelligibility,Vocal Quality, Other Additional Impairments Identified Saliva management Progress Towards Goals Good Progress Assessment of Overall Progress Improving Assessment of Improvement The pt exhibits mild-mod reading and reading comprehension dificits secondary to visual and attention impairments, resulting in left side neglect , overlooking of words/phrases , and substitutions of words/ phrases seemingly based on assumptions of text. While some substitutions were synonymous with given text, others were not and significantly changed the meaning of messages, which likely contributes significantly to the pt's comprehension and recall of information. When corrected or prompted to read text accurately, she demonstrated adequate comprehension of this limited trial. The pt benefited from visual aids including left margin indicators and line markers; however, use of these tools requires further training. Goals added to POC to address reading and reading comprehension skills. Reviewed with Patient Goals,Progress Being Made,Home Exercise Program Patient/Caregiver Understanding Good Plan Amount of Therapy Recommended 3-4 Months Frequency of Treatment Once a Week Length of Session 45 Minutes Treatment Emphasis Next Session Initiate cognitive-linguistic therapy Therapeutic Contents Client Education,Cognitive- Linguistic Training,Expressive Language Training,Home Exercise Program,Information Processing,Intelligibility, Reading Comprehension, Swallowing/Feeding,Voice Training Additional Areas of Treatment Saliva Management Provided Patient/Caregiver Instruction Home Exercise Program,Plan of Care,Questions/Concerns Therapy Recommendations Continue with Current Program Suggested Referral Other Other Referrals Couples counseling for pt and her
--- NOTE | 2020-09-27 17:47 | ST.OPTN ---
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 SORTER Treatment Note CATTLE S[employer]TER Treatment Note Start: 04/18/20 14:31 Freq: Status: Active Protocol: Document 09/27/20 18:08 BUCK (Rec: 09/27/20 18:08 BUCK [email or web address]) Speech Pathology Treatment Note Session Time Visit Start Time 12:30 Visit Stop Time 13:15 Total Visit Minutes 45 Visit Information Visit Number 12/15 Plan of Care Dates 07/27/20 - 10/25/20 Insurance Information Medicare Setting Treatment Setting Outpatient Care Visit Type Note Type Treatment Note Next Note Type Next Note Type Treatment Note General Information General Information This 74-yr-old female has Parkinsonian symptoms and is currently in the process of diagnosis with Neurologist Dr. Harleen Phelan. She is being seen for Speech Pathology services targeting effective communication skills. Subjective Observations/Patient Presentation The pt arrived on time and without arm sling. She saw MD yesterday who released her from continuous use of sling. She was again walking with her walker now that she has access to both hands, and has not fallen since last visit. The pt was not wearing prism glasses because she has requested transition glasses vs bifocals. She anticipates getting her new glasses within the week. She did report improved reading ability at home using prism glasses and felt that the difficulty she experienced earlier last week was d/t the content of the material vs her reading ability. She did report frequently missing information on the left side of the page. 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 The pt will perform sustained phonation tasks at varying pitches and at or above 70 dB to increase breath support for voice and speech and reduce monoloudness/pitch. GOAL MET 2. The pt will read texts/ describe pictures at 70 dB or greater in 80% of opportunities to increase speech intelligibility. GOAL MET 3. Using a pacing board, the pt will produce scripted speech in tandem to finger tapping to increase control of expressive language and reduce episodes of incorrect or missing words in functional speech. GOAL MET 4. Given a concrete category, the pt will name 12 items in 60 sec to improve organization of thought and expressive language processing. 5. The pt will complete simple mental flexibility tasks (e.g ., trail making tasks, listing items in various sequences, etc.) to improve executive function and information processing skills. 6. Using visual aids as needed , the pt will read simple texts with 90% accuracy to improve reading comprehension skills. Mcfp Goals 1. The pt will exhibit variation of loudness, pitch, and facial expressions WNL in at least 70% of opportunities in structured conversation to improve communication skills in the presence of a progressive disease. GOAL MET 2. The pt will produce spontaneous conversation at 68 dB or greater in 80% of opportunities to increase speech intelligibility. GOAL MET 3. Using finger tapping strategy as needed, the pt will control rate of speech in order to increase attention to word choices to improve expressive language and reduce episodes of missing or misuse of words in functional communication. GOAL MET 4. Given abstract categories, the pt will name 8 items in 60 sec to improve organization of thought and expressive language processing. 5. The pt will complete mental flexibility tasks of moderate complexity to improve executive function and information processing skills. 6. Using visual aids as necessary, the pt will demonstrate understanding of simple written texts (e.g., newspaper articles) by retelling stories and/or answering open-ended questions with 80% acc to improve reading comprehension and confidence. Treatment Activities Pt sustained phonation with avg loudness of 75.8 dB. MPT = 12 sec; beyond this time, the pt consistently reported a need to swallow, indicating posterior drainage of saliva from oral cavity. She expressed frustration at not being able to go longer and did appear to have breath to support longer durations. However, in order to prevent aspiration of saliva, the pt was instructed to stop when she felt that sensation. Due to absence of prescription glasses and pt's subsequent vision difficulties, picture description exercise replaced reading exercise. The pt described pictures with avg loudness of 71.8 dB. Loudness ranged from 70 dB (pt's natural loudness level) to 73 dB when instructed to speak as though talking to her , who is [place]. The pt reported some effort with increased loudness, stating, I would get tired if I had to talk for very long at that level. Education was provided RE cognitive processes often involved in speech comprehension for persons with high frequency hearing loss, such as the pt's . Discussed challenges in hearing only parts of words/ sentences and the need to use context to fill in missing pieces. The pt was quite surprised and expressed empathy for her . Reviewed importance of communication strategies previously discussed in treatment in light of this information. The pt verbalized understanding and intention to continue to use strategies at home in functional communication with her . Assessment Patient Response to Treatment Good Rehab Potential Good Impairments Identified Attention,Cognitive-Linguistic Skills,Dysarthria,Expressive Language,Oral Motor,Parkinson' s Disease,Reading Comprehension,Speech Intelligibility,Vocal Quality, Other Additional Impairments Identified Saliva management Progress Towards Goals Good Progress Assessment of Overall Progress Improving Assessment of Improvement The pt exhibits vocal loudness in conversation and structured tasks WNL. However, d/t her 's hearing loss, louder than normal levels are often required of the pt. She was highly receptive of education RE communication challenges for people with hearing loss. Use of communication strategies (e .g., facing conversation partner, using person's name to get attention at start of conversations, eliminating distracting noises, etc.) are imperative to optimize conversation between the pt and her . She was in strong agreement with this and expressed motivation to continue to use/increase use of strategies. The pt's MPT was limited by urge to swallow after 10-12 sec., indicating possible excessive saliva or difficulty managing saliva. Will f/u with this in further sessions. The pt's speech rate was mildly slow but steady and fluent, both in structured tasks and spontaneous speech. The pt reports benefit from occasional use of tapping strategy but does not rely heavily on it. She reported feeling more comfortable with the rate of her speech. Reviewed with Patient Goals,Progress Being Made,Home Exercise Program Patient/Caregiver Understanding Good Plan Amount of Therapy Recommended 3-4 Months Frequency of Treatment Once a Week Length of Session 45 Minutes Treatment Emphasis Next Session cognitive-linguistic treatment ; reading skills & comp Therapeutic Contents Client Education,Cognitive- Linguistic Training,Expressive Language Training,Home Exercise Program,Information Processing,Intelligibility, Reading Comprehension, Swallowing/Feeding,Voice Training Additional Areas of Treatment Saliva Management Provided Patient/Caregiver Instruction Home Exercise Program,Plan of Care,Questions/Concerns Therapy Recommendations Continue with Current Program Suggested Referral Other Other Referrals Couples counseling for pt and her
--- NOTE | 2020-10-04 17:20 | ST.OPTN ---
Visit Care Team Role Provider Type Helen Burroughs MD Attending Provider Physician Family Provider Primary Care Provider Referring Provider Address: [address] [place] [address], [id number] MANAGER TRANSPLANT Treatment Note MANAGER TRANSPLANT Treatment Note Start: 04/18/20 14:31 Freq: Status: Active Protocol: Document 10/04/20 13:22 BUCK (Rec: 10/04/20 13:31 [email or web address]) Speech Pathology Treatment Note Session Time Visit Start Time 12:30 Visit Stop Time 13:20 Total Visit Minutes 50 Visit Information Visit Number 01/14 Plan of Care Dates 07/27/20 - 10/25/20 Insurance Information Medicare Setting Treatment Setting Outpatient Care Visit Type Note Type Treatment Note Next Note Type Next Note Type Treatment Note General Information General Information This 74-yr-old female has Parkinsonian symptoms and is currently in the process of diagnosis with Neurologist Dr. Harleen Phelan. She is being seen for Speech Pathology services targeting effective communication skills. Subjective Observations/Patient Presentation The pt arrived on time with noticable bruising and contusion at right eye. Pt reported having fallen while getting into the shower this morning when her was not home. She braced herself with her forearms and did have a scrape on her right wrist. She felt her right arm was tired and mildly bruised but demonstrated full ROM. She denied cognitive, vision, and language changes since fall, but did report having increased confusion in conversation yesterday, both with her and with neighbors. She had difficulty maintaining focus, comprehending what was being said, and finding her words to respond. She stated, Yesterday I just felt bad. She stated she was feeling better today and comprehending conversation better. She agreed that she would see her PCP or attend to ED if she observed any further changes, which could be a result of the fall. This MANAGER TRANSPLANT consulted with the pt 's PT, Maribel Fernández, regarding physical aspects of the fall. PT has discharged the pt from care as of yesterday because the pt is transferring PT and OT care to her neurology clinic in [place] next week (10/10/20). Maribel did not see the pt but recommended the pt track right shoulder ROM and seek PCP assistance if reduced. This was communicated to the pt, who verbalized understanding and was in agreement. It is understood from conversations between this clinic and the pt's that the pt will continue Speech Therapy at this clinic while receiving PT/OT care in [place]. Chief Complaint(s) Speech,Language,Voice Patient Knowledge/Awareness of MANAGER TRANSPLANT Role Good in Treatment Objective Short Term Goals 1. The pt will perform sustained phonation tasks at varying pitches and at or above 70 dB to increase breath support for voice and speech and reduce monoloudness/pitch. GOAL MET 2. The pt will read texts/ describe pictures at 70 dB or greater in 80% of opportunities to increase speech intelligibility. GOAL MET 3. Using a pacing board, the pt will produce scripted speech in tandem to finger tapping to increase control of expressive language and reduce episodes of incorrect or missing words in functional speech. GOAL MET 4. Given a concrete category, the pt will name 12 items in 60 sec to improve organization of thought and expressive language processing. 5. The pt will complete simple mental flexibility tasks (e.g ., trail making tasks, listing items in various sequences, etc.) to improve executive function and information processing skills. 6. Using visual aids as needed , the pt will read simple texts with 90% accuracy to improve reading comprehension skills. Longterm Goals 1. The pt will exhibit variation of loudness, pitch, and facial expressions WNL in at least 70% of opportunities in structured conversation to improve communication skills in the presence of a progressive disease. GOAL MET 2. The pt will produce spontaneous conversation at 68 dB or greater in 80% of opportunities to increase speech intelligibility. GOAL MET 3. Using finger tapping strategy as needed, the pt will control rate of speech in order to increase attention to word choices to improve expressive language and reduce episodes of missing or misuse of words in functional communication. GOAL MET 4. Given abstract categories, the pt will name 8 items in 60 sec to improve organization of thought and expressive language processing. 5. The pt will complete mental flexibility tasks of moderate complexity to improve executive function and information processing skills. 6. Using visual aids as necessary, the pt will demonstrate understanding of simple written texts (e.g., newspaper articles) by retelling stories and/or answering open-ended questions with 80% acc to improve reading comprehension and confidence. Treatment Activities Consulted with pt RE recent fall, upcoming appt with [facility] [place], and new concerns, as identified above. In conversation, the pt exhibited occasional confusion in identifying current date and finding dates related to upcoming appts on the calendar . Some confusion between months was present. At times, the pt repeated information but with differing details, requiring clarification. The pt also expressed fear and concern that her was going to move them/her out of their home and possibly move her into a facility. Provided skilled education and counseling to the pt RE disease progression and importance of carryover of therapeutic strategies in completion of home tasks. Initiated education and training of name recall and auditory processing strategies . Will continue at next session. The pt verbalized understanding of all information provided today. Assessment Patient Response to Treatment Good Rehab Potential Good Impairments Identified Attention,Cognitive-Linguistic Skills,Dysarthria,Expressive Language,Oral Motor,Parkinson' s Disease,Reading Comprehension,Speech Intelligibility,Vocal Quality, Other Additional Impairments Identified Saliva management Progress Towards Goals Good Progress Assessment of Overall Progress Improving Assessment of Improvement The pt presented with mild confusion in both conversation and in calendar tasks related to her treatment schedule and other appts. She was responsive to redirection and clarifying questions. Given her continued falls at home and interactions with her related to these falls, the pt expressed fears and concern related to potential future living arrangements. She demonstrates good awareness of the safety concerns and consequences around her frequent falls during discussions had in treatment; however, she exhibits poor judgment in decision making and consideration of these consequences when performing functional tasks at home, indicating decline in cognitive skills. Continued skilled intervention is medically necessary to improve the pt's ability to make safe functional choices, as well participate effectively in social conversations and those related to her care, safety and future planning. Reviewed with Patient Goals,Progress Being Made,Home Exercise Program Patient/Caregiver Understanding Good Plan Amount of Therapy Recommended 3-4 Months Frequency of Treatment Once a Week Length of Session 45 Minutes Treatment Emphasis Next Session Information processing; problem-solving/reasoning skills Therapeutic Contents Client Education,Cognitive- Linguistic Training,Expressive Language Training,Home Exercise Program,Information Processing,Intelligibility, Reading Comprehension, Swallowing/Feeding,Voice Training Additional Areas of Treatment Saliva Management Provided Patient/Caregiver Instruction Home Exercise Program,Plan of Care,Questions/Concerns Therapy Recommendations Continue with Current Program Suggested Referral Other Other Referrals Couples counseling for pt and her
--- NOTE | 2020-10-11 15:21 | ST.OPTN ---
Visit Care Team Role Provider Type Helen Burroughs MD Attending Provider Physician Family Provider Primary Care Provider Referring Provider Address: [address] [place] [address], [id number] SWITCH FOREMAN Treatment Note SWITCH FOREMAN Treatment Note Start: 04/18/20 14:31 Freq: Status: Active Protocol: Document 10/11/20 14:59 BUCK (Rec: 10/11/20 15:21 BUCK [email or web address]) Speech Pathology Treatment Note Session Time Visit Start Time 12:30 Visit Stop Time 11:20 Total Visit Minutes 50 Visit Information Visit Number 02/14 Plan of Care Dates 07/27/20 - 10/25/20 Insurance Information Medicare Setting Treatment Setting Outpatient Care Visit Type Note Type Treatment Note Next Note Type Next Note Type Treatment Note General Information General Information This 74-yr-old female has Parkinsonian symptoms and is currently in the process of diagnosis with Neurologist Dr. Harleen Phelan. She is being seen for Speech Pathology services targeting effective communication skills. Subjective Observations/Patient Presentation The pt arrived on time accompanied by her , who requested advice and guidance on how to assist the pt at home. He reported that the pt had again fallen last night in the bathroom after refusing multiple requests from her to get into bed. Mr. Nickerson expressed frustration, stating She won' t listen to me. He reported having consulted with [facility] regarding potential placement of the pt but felt this was not appropriate because they told him that they cannot prevent her from falling at that facility. In response, the pt simply apologized and stated that she would go to bed when her told her in the future. The pt's also informed that PT/ OT evaluations were administered at [facility] yesterday, and that ST services were also scheduled for initiation in December, including some kind of swallow test. He reported observing increased coughing from the pt, particularly in the middle of the night and requested a swallow assessment by this clinician. Chief Complaint(s) Speech,Language,Swallowing, Cognitive Patient Knowledge/Awareness of SWITCH FOREMAN Role Good in Treatment Objective Short Term Goals 1. Given a concrete category, the pt will name 12 items in 60 sec to improve organization of thought and expressive language processing. 2. The pt will complete simple mental flexibility tasks (e.g ., trail making tasks, listing items in various sequences, etc.) to improve executive function and information processing skills. 3. Using visual aids as needed , the pt will read simple texts with 90% accuracy to improve reading comprehension skills. 4. The pt will participate in evaluation of swallow to guide POC. Primary School Principal Goals 1. Given abstract categories, the pt will name 8 items in 60 sec to improve organization of thought and expressive language processing. 2. The pt will complete mental flexibility tasks of moderate complexity to improve executive function and information processing skills. 3. Using visual aids as necessary, the pt will demonstrate understanding of simple written texts (e.g., newspaper articles) by retelling stories and/or answering open-ended questions with 80% acc to improve reading comprehension and confidence. Treatment Activities Consulted with pt/spouse RE spouse's concerns and frustrations with the pt's continued falling and challenges in communication between the couple related to this. Discussed possibility of in-home therapeutic care as well as counseling for the couple to target communication and coping strategies and future planning guidance. Counseling was provided by this clinician within scope of practice and related to multiple factors related to progression of Parkinson's disease that may be impacting the couple's current situation . This SWITCH FOREMAN offered to research resources for the couple, and they were agreeable to this. SWITCH FOREMAN also agreed to consult with [facility] around collaborative care, and the couple agreed. Throughout the session, the pt was largely silent with exception of apologizing for falling and expressing agreement with the clinician's offers of research and care coordination. After the session, this SWITCH FOREMAN left a request at [facility] for a call back from the pt's neurologist, Dr Monalisa Phelan. Also consulted [facility] Social Workers and obtained names and numbers of potential community resources, as well as talked with Nieves Dykes OT and Home Modification Specialist, who expressed interest in working with the couple in their home. This information will be passed on to the pt and her as it becomes available. Assessment Patient Response to Treatment Good Rehab Potential Good Impairments Identified Attention,Cognitive-Linguistic Skills,Dysarthria,Expressive Language,Oral Motor,Parkinson' s Disease,Reading Comprehension,Speech Intelligibility,Vocal Quality, Other Additional Impairments Identified Saliva management Progress Towards Goals Slow Progress Assessment of Improvement The pt continues to experience falls at home, which frustrate her spouse. He expressed feeling at a loss of what to do to prevent falls . The pt expressed very little beyond apologizing for fall and agreeing to do what her asks her to do. The couple is in need of guidance, which would best be offered by community and/or counseling resources in order to provide home assistance and training for the pt and spouse in their functional environment, as well as support for the couple in coping with stages of disease progression and related communication. This clinician was successful in connecting with a local OT who provides in-home care. Awaiting call back from Dr. Phelan for collaboration. Reviewed with Patient Goals,Progress Being Made,Home Exercise Program Patient/Caregiver Understanding Good Plan Amount of Therapy Recommended 3-4 Months Frequency of Treatment Once a Week Length of Session 45 Minutes Treatment Emphasis Next Session Information processing; problem-solving/reasoning skills Therapeutic Contents Client Education,Cognitive- Linguistic Training,Expressive Language Training,Home Exercise Program,Information Processing,Intelligibility, Reading Comprehension, Swallowing/Feeding,Voice Training Additional Areas of Treatment Saliva Management Provided Patient/Caregiver Instruction Home Exercise Program,Plan of Care,Questions/Concerns Therapy Recommendations Continue with Current Program Suggested Referral Other Other Referrals Couples counseling for pt and her
--- NOTE | 2020-10-18 16:45 | ST.OPIE ---
Visit Care Team Role Provider Type Helen Burroughs MD Attending Provider Physician Family Provider Primary Care Provider Referring Provider Specialty: Internal Medicine Address: [address] [place] [address], [id number] Email: [email or web address] Speech-Language Pathology Initial Evaluation ASP NET DEVELOPER Clinical Swallow Evaluation Start: 10/18/20 16:55 Freq: Status: Active Protocol: Document 10/18/20 16:56 BUCK (Rec: 10/18/20 17:04 BUCK [email or web address]) Clinical Swallow Evaluation Session Time Visit Start Time 12:30 Visit Stop Time 11:20 Total Visit Minutes 50 Visit Information Plan of Care Dates 07/27/20 - 10/25/20 Insurance Information Medicare Referral Referring Provider Dr. Helen Burroughs Reason for Referral Parkinsonian disorder Setting Assessment Location Outpatient Care Visit Type Note Type Initial evaluation Next Note Type Next Note Type Treatment Note Patient Information History The pt is a 74-yr-old female with Parkinsonian symptoms not yet diagnosed as Parkinson's Disease. The pt has been seeing Dr. Niurka Ritter, who is retiring. She is scheduled to establish neurological care with Dr. aHrleen Phelan at [facility] in [place] at the end of this month. The pt has complaints of drooling and slowed speech and auditory processing since December. She states that she sometimes uses the wrong words , her voice has gotten quieter than it used to, and she feels a tremor inside her body, especially when she is tired. She recently began taking Levadopa, which has improved her symptoms. She denied dysphagia symptoms with exception of 3 recent coughing episodes, which the pt attributes to swallowing too large of bites without properly chewing. The pt also reported 4-5 falls since in the last ~1.5 months , some in which she hit her head, but she denies loss of consciousness, changes in mentation, or injuries greater that cuts and bruises. She has reported none of the falls to her doctors because she did not feel they were of great significance. Additionally, the pt reported recent cataract surgery (2019) and stated she is unable to move eyes to the left or focus to the left, which nearly eliminates her ability to read. During the oral peripheral exam today, some facial asymmetry was noted, and the pt stated that she thinks she had a small stroke or TIA a few years ago which went unreported and therefore undiagnosed. The pt did just complete the LSVT-Big program with a Physical Therapist in [facility] [place] in March. She stated she was originally interested in the LSVT-Loud program with Speech Therapy, but due to scheduling delays and concerns of symptoms besides voice, she desired to participate in more generalized ST services. Subjective Observations The pt arrived on time, unaccompanied. She reported that she has discontinued therapy services at [facility] [place] in order to continue with therapy at [facility]. ASP NET DEVELOPER has a call in with Dr. Phelan to discuss but has not received a call back. Per the pt's 's concern of observing the pt with increased coughing and choking when eating, pt agreed to swallow evaluation. She reported some coughing with orange juice and dry crumbly textures and increased drooling, especially at night. Reported by Patient Other Symptoms Coughing,Difficulty swallowing liquids,Difficulty swallowing solids,Drooling Comment liquids = orange juice; solids = dry crumbly textures Current Diet Regular,Thin liquids Baseline Feeding Method Independent in self-feeding Objective Assessment Mental Status Alert,Responsive,Cooperative Oral Integrity WFL Dentition Within normal limits Lip Function Mild impairment Observation of Lips at Rest Symmetrical Pucker Within normal limits Lip Retraction Reduced range of motion Alternating Pucker/Lip Retraction Within normal limits Tongue Function Mild impairment Observations of Tongue at Rest Involuntary movement(s) Tongue Protrusion Involuntary movement(s) Tongue Lateralization Reduced strength Jaw Function Mild impairment Observations of Jaw at Rest Within normal limits Jaw Opening Within normal limits Jaw Closing Reduced strength Jaw Lateralization Reduced range of motion Hard/Soft Palate Function Within normal limits Observations of Hard/Soft Palate Within normal limits Nasality Within normal limits Phonation Within normal limits Respiratory Sufficiency Within normal limits Comment Mild tremors observed upon tongue protrusion. The pt has dental implants in excellent condition. Food and Liquid Trials Position During Assessment Upright (90 degrees) Liquids Trialed Thin Solids Trialed Puree,Mechanical Soft,Regular Administration Type Self-feeding Oral Impairment Mildly impaired Oral Phase Comments Oral prep and swallow phase WNL with solids and liquid trials. Mildly excessive saliva buildup observed and reported. Pt c/o difficulty managing saliva. No food/ liquid residue observed. Pharyngeal Phase Comments No overt s/sx of aspiration were observed during today's evaluation; however, the pt reports occasional coughing with dry crumbly foods and with orange juice. Her spouse reports more coughing that the pt endorses. Treatment will include ongoing evaluation. Will attempt to consult with [facility] to collaborate care and determine if MBSS is warranted. Comment Endurance WNL with limited trials. Findings Swallowing Function Comments Mild oral dysphagia. Suspect mild pharyngeal dysphagia. Contributing Factors to Swallow Reduced oral strength/ Impairment coordination/sensation, Impaired airway protection Prognosis Good Based on Cognitive status,Family support,Duration of symptoms/ severity Comment Trained oral motor exercises targeting labial and buccal strength/coordination to improve saliva management. Educated pt RE community services that can provide in- home Occupational Therapy care to assess home environment and pt/caregiver skills to reduce falls. The pt expressed great interest in this and stated intent to call the OT when she returned home from this appt to discuss an appt for consultation. This is highly recommended. Impact on Safety and Functioning Risk for aspiration Comments Mild risk Recommendations Instrumental Assessment No Swallowing Treatment Yes Frequency 1x/wk in conjunction with ongoing speech therapy Duration 2-30 months Recommended Solids Regular Recommended Liquids Thin Safety Precautions/Swallowing Reduce distractions,Remain Recommendations upright (90 degrees) during all oral intake,Upright position at least 30 minutes after meals,Small bites and sips when eating,Slow rate; swallow between bites Medication Recommendations As Tolerated Education Patient/Caregiver Education Described results of evaluation,Patient expressed understanding of evaluation, Patient expressed agreement with goals & treatment plans, Patient expressed understanding of safety precautions,Patient expressed understanding of feeding recommendations Goals Short-term Goals 1. The pt will follow safe swallow strategies and aspiration precautions to reduce risk of aspiration. 2. The pt will perform oral- motor and swallow exercises to improve saliva management and swallow safety. Long-term Goals 1. The pt will tolerate least restrictive diet to meet her nutrition and hydration needs.
--- NOTE | 2020-11-30 11:34 | ST.OPDS ---
Visit Care Team Role Provider Type Helen Burroughs MD Attending Provider Physician Family Provider Primary Care Provider Referring Provider Address: [address] [place] [address], [id number] LITERATURE PROFESSOR Treatment Note LITERATURE PROFESSOR Treatment Note Start: 04/18/20 14:31 Freq: Status: Active Protocol: Document 11/30/20 11:22 BUCK (Rec: 11/30/20 11:34 BUCK [email or web address]) Speech Pathology Treatment Note Visit Information Plan of Care Dates 07/27/20 - 10/25/20 Setting Treatment Setting Outpatient Care Visit Type Note Type Discharge Summary General Information General Information This now 75-yr-old female has Parkinsonian symptoms and is currently in the process of diagnosis with Neurologist Dr. Harleen Phelan. She is being seen for Speech Pathology services targeting effective expressive, receptive and cognitive communication skills and swallow safety. Subjective Observations/Patient Presentation New orders for Speech Therapy have been received. The pt had been collaborating with [facility] over last ~2 mos. Unclear if pt was seen by Speech Therapy there. She is discharged from this course of therapy at this time and will be reassessed and new POC developed under new orders. Chief Complaint(s) Speech,Language,Swallowing, Cognitive Patient Knowledge/Awareness of LITERATURE PROFESSOR Role Good in Treatment Objective Short Term Goals 1. Given a concrete category, the pt will name 12 items in 60 sec to improve organization of thought and expressive language processing. GOAL MET 2. The pt will complete simple mental flexibility tasks (e.g ., trail making tasks, listing items in various sequences, etc.) to improve executive function and information processing skills. GOAL NOT MET 3. Using visual aids as needed , the pt will read simple texts with 90% accuracy to improve reading comprehension skills. NOT MET D/T VISUAL DEFICITS 4. The pt will participate in evaluation of swallow to guide POC. GOAL MET Group Home Goals 1. Given abstract categories, the pt will name 8 items in 60 sec to improve organization of thought and expressive language processing. GOAL NOT MET 2. The pt will complete mental flexibility tasks of moderate complexity to improve executive function and information processing skills. GOAL NOT MET 3. Using visual aids as necessary, the pt will demonstrate understanding of simple written texts (e.g., newspaper articles) by retelling stories and/or answering open-ended questions with 80% acc to improve reading comprehension and confidence. GOAL NOT MET D/T VISUAL DEFICITS Assessment Patient Response to Treatment Fair Rehab Potential Good Impairments Identified Attention,Cognitive-Linguistic Skills,Dysarthria,Expressive Language,Oral Motor,Parkinson' s Disease,Reading Comprehension,Speech Intelligibility,Vocal Quality, Other Additional Impairments Identified Saliva management Progress Towards Goals Slow Progress Assessment of Improvement Over the course of treatment, the pt has demonstrated appropriate loudness levels of voice. Language has been appropriate in basic conversation. Swallow safety appears to be WFL via therapeutic trials, although the pt/spouse report more coughing with oral intake than has been observed in therapy. Mild-moderate impairment of saliva management remains present but improved with oral motor exercises. The pt has exhibited mild decline in cognitive function over the course of treatment with increased difficulty with mental flexibility and executive functions and occ decrease in STM skills. Suspect cognitive changes may impact the pt's ability to make safe decisions related to movements around her home that frequently result in falls. Communication between the pt and her regarding such safety appears to continue to be strained. The couple may benefit from counseling with a family therapist to navigate these challenges. Patient/Caregiver Understanding Good Plan Therapy Recommendations Discharge from Speech Therapy Suggested Referral Other Other Referrals Couples counseling for pt and her
== END 2020-12-07 13:18 | disposition home or self-care (01) ==
LOC: SP 12:30
PROVIDERS: Family Provider Internal Medicine; PCP Internal Medicine; Referring Provider Internal Medicine; Visit Provider Internal Medicine
DX: R29.6 Repeated falls (principal); G20 Parkinson's disease; R13.10 Dysphagia, unspecified
CPT/HCPCS: 92507; 92520; 92521; 92523; 92524; 92610; 97129; 97130

== ENCOUNTER 2020-11-24 10:21 | Emergency (ER) | payer MEDICARE, OTHER, SELFPAY ==
[2020-11-24] VITALS (20 sets, daily range): BP systolic 122–148; BP diastolic 64–74; PULSE 63–76; RESP 14–17; TEMP 36.7; O2SAT 92–100
--- NOTE | 2020-11-24 10:33 | DI.CT.S_ITS ---
PROCEDURE: CT HEAD/BRAIN WO CON INDICATIONS: falls, hit right side of head. TECHNIQUE: Noncontrast 4.5 mm thick angled axial sections acquired from the foramen magnum to the vertex, with coronal and sagittal reformats. For radiation dose reduction, the following was used: automated exposure control, adjustment of mA and/or kV according to patient size. COMPARISON: None. FINDINGS: Image quality: Excellent. CSF spaces: Basal cisterns are patent. No extra-axial fluid collections. The ventricles are symmetric in size and shape. Brain: No intracranial bleeds or masses. There is cerebral volume loss for age, with resultant ventricular and sulcal prominence. There are periventricular and deep white matter chronic small vessel ischemic changes. There is intracranial internal carotid artery atherosclerosis. Skull and face: Calvarium and visualized facial bones appear intact, without suspicious lesions. Sinuses: Visualized sinuses and mastoids are clear. IMPRESSION: No acute intracranial disease process. Dictated by: Ashlee Laura MD, PhD on 11/24/2020 at 11:22 Approved by: Ashlee Laura MD, PhD on 11/24/2020 at 11:24
--- NOTE | 2020-11-24 10:39 | DI.CT.S_ITS ---
PROCEDURE: CT CERVICAL SPINE WO CON INDICATIONS: falls hit right side of neck. TECHNIQUE: Noncontrast 3 mm thick sections acquired from the skull base to the T4 level. Sagittal and coronal reformats were then constructed. For radiation dose reduction, the following was used: automated exposure control, adjustment of mA and/or kV according to patient size. COMPARISON: None. FINDINGS: Image quality: Excellent. Bones: Comminuted, fracture of the tip of the right C1 transverse process. Fracture lucency appears to extend into the right transverse foramen. Visualized superior ribs are intact. Spine degenerative disc disease and facet arthropathy. Soft tissues: Prevertebral soft tissues are normal in thickness. No paravertebral hematomas. No apical pneumothoraces. Pleural-parenchymal scarring noted in the lung apices. IMPRESSION: Fracture of the C1 right transverse process with possible extension into the right transverse foramen. Recommend CT angiogram of the neck for dedicated evaluation of the right vertebral artery. Findings telephoned to Dr. Singh on November 24, 2020 at 11:29 a.m. Dictated by: Ashlee Laura MD, PhD on 11/24/2020 at 11:25 Approved by: Ashlee Laura MD, PhD on 11/24/2020 at 11:34
[2020-11-24 10:49] LABS: Add Manual Diff / Slide Review NO; Basophils Absolute Auto 0 /uL (0-100); Basophils Percent Auto 0.6 % (0-2); Eosinophils Absolute Auto 0 /uL (0-450); Eosinophils Percent Auto 0.5 % (2-4); Hematocrit 36.1 % (36-46); Hemoglobin 11.9 g/dL (12.0-16.0); Lymphocytes Absolute Auto 1100 /uL (1100-4500); Mean Corpuscular HGB Conc 32.9 % (30-36); Mean Corpuscular Hemoglobin 30.5 PG (26-34); Mean Corpuscular Volume 92.6 fL (80-100); Monocytes Absolute Auto 700 /uL (0-900); Monocytes Percent Auto 10.4 % (3-14); Neutrophils Absolute Auto 4400 /uL (1500-7000); Neutrophils Percent Auto 70.5 % (50-75); Platelet Count 214 X10^3/uL (150-400); Red Cell Distribution Width 14.1 % (11.6-14.8); White Blood Cell Count 6.3 X10^3/uL (4.5-11.0)
--- NOTE | 2020-11-24 10:52 | ED.FALL ---
HPI - Fall General Chief Complaint: Fall Stated Complaint: Fell, slipped on floor Time Seen by Provider: 11/24/20 10:47 Source: patient and family Mode of arrival: Wheelchair Limitations: no limitations History of Present Illness HPI Narrative: Patient is a 74-year-old female who has history of Parkinson's presenting with increase in falls. She does fall frequently, however she fell last night and this morning. Last night the saw her she has perception and depth issues she was turning around from her walker to sit on the bed and as she was doing so only 1 buttock was on the bed and she fell down to the ground. This morning she her walker and fell hitting her head. She has a laceration on the right side of her head. No loss of consciousness she has some minimal neck pain but no vertebral tenderness. She denies any fever or chills. No chest pain shortness of breath or painful or frequent urination. MD complaint: fall Onset (ago): day(s) Fall from: standing Fall witnessed: yes, by family Loss of consciousness: none Prolonged down time: no Symptoms prior to fall: none Related Data Home Medications Medication Instructions Recorded Confirmed carbidopa-levodopa 1 tab PO 5XD 11/24/20 11/24/20 donepezil 5 mg PO QAM 11/24/20 11/24/20 sertraline 100 mg PO QAM 11/24/20 11/24/20 Allergies Allergy/AdvReac Type Severity Reaction Status Date / Time No Known Drug Allergies Allergy Verified 11/24/20 10:45 Review of Systems Review of Systems ROS Unobtainable: All systems reviewed & are unremarkable except as noted in HPI and below Constitutional Constitutional: Denies chills, Denies fever(s), Reports frequent falls, Denies headache(s), Denies lethargy and Denies weakness ENT Ears, Nose, Mouth, and Throat: Denies change in voice, Denies vertigo, Denies dizziness, Denies headache(s), Denies neck pain and Denies sore throat Cardiovascular Cardiovascular: Denies chest pain, Denies syncope, Denies irregular heart rhythm, Denies lightheadedness, Denies palpitations, Denies dyspnea, Denies dyspnea on exertion and Denies orthopnea Respiratory Respiratory: Denies cough, Denies dyspnea, Denies dyspnea on exertion and Denies wheezing Gastrointestinal Gastrointestinal: Denies abdominal pain, Denies change in bowel habits, Denies diarrhea, Denies nausea and Denies vomiting Musculoskeletal Musculoskeletal: Denies arthralgias, Denies back pain and Denies neck pain Integumentary/Breasts Skin/Breast: Reports as per HPI Neurologic Neurologic: Denies vertigo, Denies dizziness, Denies syncope, Reports frequent falls, Denies headache(s) and Denies weakness Endocrine Endocrine: Denies palpitations Allergic/Immunologic Allergic/Immunologic: Denies wheezing Patient History Medical History Arthritis Chickenpox (~1957) History of recurrent ear infection Hx of fracture of wrist (~11/2012) Hyperlipemia Measles Osteopenia (1990) Ovarian cyst (1977) Peptic ulcer disease (1987) Surgical History History of breast augmentation (2002) Hx of thumb surgery (2003) Status post breast lumpectomy Family History Mother Alcoholism Father Cancer Sister Breast cancer Sister No problems noted. Social History household members: spouse Smoking Status: Never smoker second hand exposure: No alcohol intake: current (a glass of wine occasionally. ) substance use type: does not use Smoking Status: Never smoker alcohol intake frequency: 0-2 drinks per day Substance Use Type: does not use Exam Initial Vital Signs Initial Vital Signs: Vital Signs Temperature 98.0 F 11/24/20 10:30 Pulse Rate 71 11/24/20 10:30 Respiratory Rate 14 11/24/20 10:30 Blood Pressure 138/73 11/24/20 10:30 Pulse Oximetry 99 11/24/20 10:30 GENERAL: Alert thin 74-year-old female and in no acute distress. HEENT: Head 1 cm laceration right parietal no crepitations or depression,EOMI, pupils reactive, face symmetric, moist mucous membranes NECK: No vertebral tenderness no step-offs full flexion extension and rotation CARDIOVASCULAR: Regular rate and rhythm without murmurs, rubs or gallops. RESPIRATORY: Breath sounds equal bilaterally, no wheezes rales or rhonchi. ABDOMEN: Soft, nontender. Normoactive bowel sounds all 4 quadrants. No guarding or rebound. BACK: No vertebral tenderness no step-offs no sign of trauma EXTREMITIES: Normal range of motion, no clubbing or edema. Neurovascularly intact NEUROLOGICAL: Alert and oriented x4.Normal gait and speech. Cranial nerves II through XII grossly intact. Good [id number], good ohdk-yr-[id number], strength equal bilaterally, no dysarthria or aphasia, sensation in tact to soft touch bilaterally, no visual changes, no facial droop SKIN: Warm, dry, no laceration, no petechiae, no rashes or lesions. Procedures Laceration Repair Laceration 1: Site: scalp Side (If applicable): right Description: linear Skin layer closed with: marizol Number of sutures: 1 Course Orders Ordered: ED Orders 11/24/20 10:33 CT head/brain wo con Stat EKG-12 Lead Stat 11/24/20 10:39 CT cervical spine wo con Stat 11/24/20 10:42 Complete Blood Count AUTO DIFF Stat Comprehensive Metabolic Panel Stat Partial Thromboplastin Time Stat Prothrombin Time INR Stat 11/24/20 11:33 CT angio neck Stat Discontinued Medications Acetaminophen (Acetaminophen 325 Mg Tablet) 975 mg PO NOW ONE Stop: 11/24/20 11:02 Last Admin: 11/24/20 11:22 Dose: 975 mg Documented by: DOMENIC Carbidopa/Levodopa (Carbidopa-Levodopa 25/100 Tablet) 1 each PO NOW ONE Stop: 11/24/20 11:53 Last Admin: 11/24/20 11:56 Dose: 1 each Documented by: DOMENIC Carbidopa/Levodopa (Carbidopa-Levodopa 25/100 Tablet) 1 each PO NOW ONE Stop: 11/24/20 17:02 Last Admin: 11/24/20 17:14 Dose: 1 each Documented by: DOMENIC Diphtheria/Tetanus/Acell Pertussis (Tet,Diph,Pertuss(Acell),Vac/Pf 0.5 Ml Syringe) 0.5 ml IM .ONCE ONE Stop: 11/24/20 11:14 Last Admin: 11/24/20 11:21 Dose: 0.5 ml Documented by: DOMENIC Vital Signs Vital signs: Vital Signs - 8 hr 11/24/20 10:30 11/24/20 10:51 11/24/20 10:52 Temperature 98.0 F Pulse Rate 71 68 66 Respiratory Rate 14 Blood Pressure 138/73 140/74 Pulse Oximetry 99 100 99 11/24/20 11:00 11/24/20 11:23 11/24/20 11:30 Temperature Pulse Rate 66 63 Respiratory Rate 17 16 Blood Pressure 134/69 130/67 Pulse Oximetry 99 100 11/24/20 11:56 11/24/20 12:00 11/24/20 12:30 Temperature Pulse Rate 76 68 65 Respiratory Rate Blood Pressure 148/73 H 141/70 H Pulse Oximetry 92 97 98 11/24/20 13:00 11/24/20 13:30 11/24/20 13:45 Temperature Pulse Rate 64 69 70 Respiratory Rate 14 Blood Pressure 122/64 123/67 123/67 Pulse Oximetry 97 96 99 11/24/20 14:00 11/24/20 14:03 11/24/20 14:30 Temperature Pulse Rate 67 68 67 Respiratory Rate Blood Pressure 145/70 H 134/73 Pulse Oximetry 97 97 97 11/24/20 15:00 11/24/20 15:30 11/24/20 16:00 Temperature Pulse Rate 63 64 65 Respiratory Rate 14 16 Blood Pressure 135/70 125/74 122/65 Pulse Oximetry 96 96 96 11/24/20 16:30 11/24/20 17:00 Temperature Pulse Rate 64 66 Respiratory Rate 15 Blood Pressure 124/65 124/67 Pulse Oximetry 96 96 MDM - Fall Lab Data Attestation: I reviewed the patient's lab results. Result diagrams: 11/24/20 10:42 11/24/20 10:42 Labs: Lab Results 11/24/20 11/24/20 11/24/20 Range/Units 10:42 10:42 10:42 WBC 6.3 (4.5-11.0) X10^3/uL RBC 3.90 L (4.0-5.2) X10^6/uL Hgb 11.9 L (12.0-16.0) g/dL Hct 36.1 (36-46) % MCV 92.6 (80-100) fL MCH 30.5 (26-34) PG MCHC 32.9 (30-36) % RDW 14.1 (11.6-14.8) % Plt Count 214 (150-400) X10^3/uL Neut % (Auto) 70.5 (50-75) % Lymph % (Auto) 18.0 L (25-40) % Bowman % (Auto) 10.4 (3-14) % Eos % (Auto) 0.5 L (2-4) % Baso % (Auto) 0.6 (0-2) % Neut # (Auto) 4400 (3913-5596) /uL Lymph # (Auto) 1100 (3399-0527) /uL Bowman # (Auto) 700 (0-900) /uL Eos # (Auto) 0 (0-450) /uL Baso # (Auto) 0 (0-100) /uL PT 10.2 (10.1-12.7) SECONDS INR 0.9 (0.9-1.3) APTT 29 (26.4-36.2) SECONDS Sodium 137 (137-145) mmol/L Potassium 4.3 (3.4-5.1) mmol/L Chloride 106 (98-107) mmol/L Carbon Dioxide 24 (22-32) mmol/L BUN 20 H (7-17) mg/dL Creatinine 0.72 (0.52-1.04) mg/dL Estimated GFR > 60.0 (>60) mL/min BUN/Creatinine Ratio 27.8 H (6-22) Glucose 93 (80-110) mg/dL Calcium 9.4 (8.4-10.2) mg/dL Total Bilirubin 0.4 (0.2-1.3) mg/dL AST 24 (14-36) IU/L ALT 4 (<35) IU/L Alkaline Phosphatase 71 (38-126) U/L Total Protein 7.0 (6.3-8.2) g/dL Albumin 4.3 (3.5-5.0) g/dL Globulin 2.7 (1.7-4.1) g/dL Albumin/Globulin Ratio 1.6 (1.0-2.8) Urine Dip Bedside Urine Glucose Negative Bedside Urine Bilirubin - Negative Bedside Urine Ketone - Negative Urine Specific [place] 1.020 Bedside Urine Occult Blood - Negative Bedside Urine pH 7.0 Bedside Urine Protein - Negative Bedside Urine Urobilinogen - Negative Bedside Urine Nitrite - Negative Bedside Urine Leukocytes - Negative Esterase Imaging Data CT scan - head: Radiologist's Impression: PROCEDURE: CT HEAD/BRAIN WO CON INDICATIONS: falls, hit right side of head. TECHNIQUE: Noncontrast 4.5 mm thick angled axial sections acquired from the foramen magnum to the vertex, with coronal and sagittal reformats. For radiation dose reduction, the following was used: automated exposure control, adjustment of mA and/or kV according to patient size. COMPARISON: None. FINDINGS: Image quality: Excellent. CSF spaces: Basal cisterns are patent. No extra-axial fluid collections. The ventricles are symmetric in size and shape. Brain: No intracranial bleeds or masses. There is cerebral volume loss for age, with resultant ventricular and sulcal prominence. There are periventricular and deep white matter chronic small vessel ischemic changes. There is intracranial internal carotid artery atherosclerosis. Skull and face: Calvarium and visualized facial bones appear intact, without suspicious lesions. Sinuses: Visualized sinuses and mastoids are clear. IMPRESSION: No acute intracranial disease process. Dictated by: Ashlee Laura MD, PhD on 11/24/2020 at 11:22 CT - cervical spine: Radiologist's Impression: PROCEDURE: CT CERVICAL SPINE WO CON INDICATIONS: falls hit right side of neck. TECHNIQUE: Noncontrast 3 mm thick sections acquired from the skull base to the T4 level. Sagittal and coronal reformats were then constructed. For radiation dose reduction, the following was used: automated exposure control, adjustment of mA and/or kV according to patient size. COMPARISON: None. FINDINGS: Image quality: Excellent. Bones: Comminuted, fracture of the tip of the right C1 transverse process. Fracture lucency appears to extend into the right transverse foramen. Visualized superior ribs are intact. Spine degenerative disc disease and facet arthropathy. Soft tissues: Prevertebral soft tissues are normal in thickness. No paravertebral hematomas. No apical pneumothoraces. Pleural-parenchymal scarring noted in the lung apices. IMPRESSION: Fracture of the C1 right transverse process with possible extension into the right transverse foramen. Recommend CT angiogram of the neck for dedicated evaluation of the right vertebral artery. Findings telephoned to Dr. Singh on November 24, 2020 at 11:29 a.m. Dictated by: Ashlee Laura MD, PhD on 11/24/2020 at 11:25 CTA - brain/neck: Radiologist's Impression: PROCEDURE: CT ANGIO NECK INDICATIONS: ? Possible dissection TECHNIQUE: After the administration of intravenous contrast, 1.5 mm axial sections acquired from the aortic arch to the [place] of [place]. Maximum intensity projection (MIP) reformats were then performed. COMPARISON: [facility], CT, CT HEAD/BRAIN WO [facility], 11/24/2020, 10:43. [facility], CT, CT CERVICAL SPINE WO [facility], 11/24/2020, 10:43. FINDINGS: Image quality: Excellent. Carotid system: The great vessels demonstrate a conventional anatomy as they arise from the aortic arch. The origins of the common carotid arteries appear patent. The common carotid arteries demonstrate normal calibers and courses. The bifurcation regions appear normal bilaterally. The internal carotid arteries demonstrate normal caliber and course. Posterior circulation: In this patient with this given history, scrutiny is given to the right vertebral artery at the C1 level. At this site, the right vertebral artery appears normal, without findings of dissection or luminal narrowing. The origins of the vertebral arteries appear patent. The more superior portions of the vertebral arteries demonstrate normal course and caliber. The left vertebral artery is dominant to the right. They join to form a normal appearing basilar artery. Soft tissues: Visualized neck soft tissues demonstrate no suspicious abnormalities. Thyroid gland is within normal limits, with a posteriorly projected portion on the right side, as on series 5, image 99. Bones: The known right C1 transverse process fracture is again seen. No suspicious bony lesions. Visualized cervical spine appears normally aligned. Degenerative changes are seen, which are worst inferiorly. IMPRESSION: No findings of dissection can be seen within the right vertebral artery at C1. Right C1 transverse process fracture again seen. Within the arteries of the neck, no hemodynamically significant stenosis can be seen. Any quantitative stenosis measurements were performed using the NASCET criteria. Dictated by: David Torres M.D. on 11/24/2020 at 10:57 Approved by: David Torres M.D. on 11/24/2020 at 11:00 [facility] Narrative Medical decision making narrative: Patient is found to have a C1 transverse fracture. CT angio does not show any dissection. Patient is initially placed in [place] collar in till arm speaking with spine surgeon Unfortunately heart reviews PACS system is down a difficult time seeing images images actually were not seen by the spine surgeon but I was able to read the report to Dr. Amezcua. At this time no color is needed no surgical management pain control only 1700 Dr. Amezcua, updated patient's symptoms and radiology reports at this time conservative management only no surgical intervention and no collar needed. Patient's collar was removed and she was given Parkinson's medication in the emergency department. Discharge Plan Departure Patient Disposition: Home Clinical Impression: Laceration of head C1 cervical fracture Qualifiers: Encounter type: initial encounter Fracture type: closed Fracture morphology: other fracture Fracture alignment: nondisplaced Qualified Code(s): S12.091A - Other nondisplaced fracture of first cervical vertebra, initial encounter for closed fracture Instructions: Neck Fracture Activity Restrictions/Additional Instructions: *You have been diagnosed with cervical fracture, scalp laceration *What to do: At this time I have spoken with the hazardous waste management specialist no need to wear a collar no need for surgical intervention this will heal on its own. Please have your marizol removed in about 5 days. He may wash your hair. *Continue to take medications as directed Tylenol 650 mg every 4-6 hours if needed for xmhf-pu-boagropj pain *Follow up with your primary care provider in 2-3 days *Return to ER if you should have increasing shortness of breath [or] any new, worsening or concerning symptoms Prescriptions: No Action sertraline 100 mg tablet 100 mg PO QAM RF: 0 donepezil 5 mg tablet 5 mg PO QAM RF: 0 carbidopa-levodopa 25-100 mg tablet 1 tab PO 5XD RF: 0 Referrals: Helen Burroughs MD [Primary Care Provider] -
[2020-11-24 10:56] LABS: INR 0.9 (0.9-1.3); Prothrombin Time 10.2 SECONDS (10.1-12.7)
[2020-11-24 10:58] LABS: PTT Partial Thromboplastin Tim 29 SECONDS (26.4-36.2)
[2020-11-24 11:00] LABS: Alanine Aminotransferase 4 IU/L (<35); Albumin 4.3 g/dL (3.5-5.0); Albumin Globulin Ratio 1.6 (1.0-2.8); Alkaline Phosphatase 71 U/L (38-126); Aspartate Aminotransferase 24 IU/L (14-36); BUN Creatinine Ratio 27.8 (6-22); Bilirubin Total 0.4 mg/dL (0.2-1.3); Blood Urea Nitrogen 20 mg/dL (7-17); Calcium 9.4 mg/dL (8.4-10.2); Carbon Dioxide 24 mmol/L (22-32); Chloride 106 mmol/L (98-107); Estimated Glomerular Filt Rate > 60.0 mL/min (>60); Globulin 2.7 g/dL (1.7-4.1); Glucose 93 mg/dL (80-110); HEMOLYSIS 33 (0-50); Potassium 4.3 mmol/L (3.4-5.1); Sodium 137 mmol/L (137-145)
[2020-11-24] MEDS: TET,DIPH,PERTUSS(ACELL),VAC/PF 0.5 ML SYRINGE IM (11:21)
[2020-11-24] MEDS: ACETAMINOPHEN 325 MG TABLET 975 MG PO (11:22)
--- NOTE | 2020-11-24 11:33 | DI.CT.S_ITS ---
PROCEDURE: CT ANGIO NECK INDICATIONS: ? Possible dissection TECHNIQUE: After the administration of intravenous contrast, 1.5 mm axial sections acquired from the aortic arch to the [place] of [place]. Maximum intensity projection (MIP) reformats were then performed. COMPARISON: [facility], CT, CT HEAD/BRAIN WO [facility], 11/24/2020, 10:43. [facility], CT, CT CERVICAL SPINE WO [facility], 11/24/2020, 10:43. FINDINGS: Image quality: Excellent. Carotid system: The great vessels demonstrate a conventional anatomy as they arise from the aortic arch. The origins of the common carotid arteries appear patent. The common carotid arteries demonstrate normal calibers and courses. The bifurcation regions appear normal bilaterally. The internal carotid arteries demonstrate normal caliber and course. Posterior circulation: In this patient with this given history, scrutiny is given to the right vertebral artery at the C1 level. At this site, the right vertebral artery appears normal, without findings of dissection or luminal narrowing. The origins of the vertebral arteries appear patent. The more superior portions of the vertebral arteries demonstrate normal course and caliber. The left vertebral artery is dominant to the right. They join to form a normal appearing basilar artery. Soft tissues: Visualized neck soft tissues demonstrate no suspicious abnormalities. Thyroid gland is within normal limits, with a posteriorly projected portion on the right side, as on series 5, image 99. Bones: The known right C1 transverse process fracture is again seen. No suspicious bony lesions. Visualized cervical spine appears normally aligned. Degenerative changes are seen, which are worst inferiorly. IMPRESSION: No findings of dissection can be seen within the right vertebral artery at C1. Right C1 transverse process fracture again seen. Within the arteries of the neck, no hemodynamically significant stenosis can be seen. Any quantitative stenosis measurements were performed using the NASCET criteria. Dictated by: David Torres M.D. on 11/24/2020 at 10:57 Approved by: David Torres M.D. on 11/24/2020 at 11:00
--- NOTE | 2020-11-24 11:40 | PC.NURSE ---
Trego collar placed w/ Dr. Singh. Pt w/ no cervical spine tenderness nor neuro deficit. Verbalized understanding of need for Trego collar and cervical spine immobilization.
[2020-11-24] MEDS: CARBIDOPA-LEVODOPA 25/100 TABLET 1 EACH PO ×2 (11:56→17:14)
== END 2020-11-24 17:23 | disposition home or self-care (01) ==
PROVIDERS: Emergency Provider Emergency Medicine; Family Provider Internal Medicine; PCP Internal Medicine
DX: S12.091A Other nondisplaced fracture of first cervical vertebra, initial encounter for closed fracture (principal); S01.01XA Laceration without foreign body of scalp, initial encounter; W19.XXXA Unspecified fall, initial encounter; G20 Parkinson's disease; R29.6 Repeated falls; Z23 Encounter for immunization
CPT/HCPCS: 12001; 36415; 70450; 70498; 72125; 80053; 81003; 85025; 85610; 85730; 90471; 93005; 99284; 99285; 90715

== ENCOUNTER 2021-01-20 09:41 | Emergency (ER) | payer MEDICARE, OTHER, SELFPAY ==
[2021-01-20 09:43] VITALS: BP 140/70; PULSE 68; RESP 14; TEMP 36.2; O2SAT 99
--- NOTE | 2021-01-20 09:56 | ED.FALL ---
HPI - Fall General Chief Complaint: Fall Stated Complaint: fell and split scalp Time Seen by Provider: 01/20/21 09:55 Source: patient Mode of arrival: Wheelchair History of Present Illness HPI Narrative: Patient is a 75-year-old female. History of Parkinson's disease. Not on anticoagulation who is here for evaluation of a fall. Patient and state that she does have balance issues secondary to her Parkinson's disease and she fell backwards off of her walker. She did hit her head. No loss of conscious. No neck pain. No tingling in her arms or legs. No other orthopedic injuries reported from the patient. She did sustain a cut to her scalp. She is up-to-date on her tetanus shot. She did have a fall within the past year where she had a cervical spine CT and a cervical fracture was found. It was determined that this was non operative and she was discharged home. They state that she was not having any discomfort at that time. Related Data Home Medications Medication Instructions Recorded Confirmed carbidopa 25 mg-levodopa 100 mg 1 tab PO 5XD 11/24/20 11/24/20 tablet donepezil 5 mg tablet 5 mg PO QAM 11/24/20 11/24/20 sertraline 100 mg tablet 100 mg PO QAM 11/24/20 11/24/20 Allergies Allergy/AdvReac Type Severity Reaction Status Date / Time No Known Drug Allergies Allergy Verified 11/24/20 10:45 Review of Systems Constitutional Constitutional: Denies headache(s) Eyes Eyes: Reports system reviewed and no additional complaints, except as documented ENT Ears, Nose, Mouth, and Throat: Denies headache(s) Cardiovascular Cardiovascular: Reports system reviewed and no additional complaints, except as documented Respiratory Respiratory: Reports system reviewed and no additional complaints, except as documented Musculoskeletal Comments: No arms or leg discomfort Integumentary/Breasts Comments: Cut to scalp Neurologic Neurologic: Denies headache(s) Psychiatric Psychiatric: Reports system reviewed and no additional complaints, except as documented Hematologic/Lymphatic On Anticoagulants: No Allergic/Immunologic Allergic/Immunologic: Reports system reviewed and no additional complaints, except as documented Patient History Medical History Arthritis Chickenpox (~1957) History of recurrent ear infection Hx of fracture of wrist (~11/2012) Hyperlipemia Measles Osteopenia (1990) Ovarian cyst (1977) Peptic ulcer disease (1987) Surgical History History of breast augmentation (2002) Hx of thumb surgery (2003) Status post breast lumpectomy Family History Mother Alcoholism Father Cancer Sister Breast cancer Sister No problems noted. Social History household members: spouse Smoking Status: Never smoker second hand exposure: No alcohol intake: current substance use type: does not use Smoking Status: Never smoker alcohol intake frequency: 0-2 drinks per day Substance Use Type: does not use Exam Initial Vital Signs Initial Vital Signs: Vital Signs Temperature 97.1 F L 01/20/21 09:43 Pulse Rate 68 01/20/21 09:43 Respiratory Rate 14 01/20/21 09:43 Blood Pressure 140/70 01/20/21 09:43 Pulse Oximetry 99 01/20/21 09:43 Const General: cooperative, healthy appearing and comfortable HENIA Head: laceration Eyes General: appearance normal, both eyes and all related structures Resp Effort & Inspection: normal respiratory effort Cardio Rate: regular rate Back/Spine/Pelvis Cervical Spine: No collar present, No cervical spasm and No cervical spinal tenderness Thoracic/Lumbar Spine: No thoracic spinal tenderness Skin Other: 4 cm laceration to the right parietal/occipital portion of the scalp. No active bleeding. Neuro General: patient alert, patient awake, patient oriented x3 and moves all extremities Extrem General: normal to inspection and capillary refill normal Psych Appearance: grossly normal Procedures Laceration Repair Laceration 1: Site: scalp Side (If applicable): right Size (cm): 4 Description: linear Depth: simple, single layer Local Anesthetic: lidocaine 1% and with bicarb Amount of anesthesia used (mL): 4 Pre-repair: wound explored and irrigated extensively Skin layer closed with: aby Course Orders Ordered: ED Orders 01/20/21 10:25 CT cervical spine wo con Stat CT head/brain wo con Stat Discontinued Medications Lidocaine/Sodium Bicarbonate (Lido 1%/Sod Bicarb 8.4% (10ml) 10 Ml Syringe) 10 ml INJ NOW ONE Stop: 01/20/21 09:57 Last Admin: 07/16/21 10:05 Dose: 10 ml Documented by: DOMENIC Vital Signs Vital signs: Vital Signs - 8 hr 01/20/21 09:43 Temperature 97.1 F L Pulse Rate 68 Respiratory Rate 14 Blood Pressure 140/70 Pulse Oximetry 99 MDM - Fall Imaging Data CT scan - head: Radiologist's Impression: [facility] [place] [id number] Scan ReportSigned Patient: Crystal Nickerson MMR#: [id number]: [id number]:[id number]/Sex: 75 / FDate of Service: 01/20/21Loc: EDAccession Number: [id number] Procedure: CT head/brain wo con Ordering Provider: Schuyler Moss D.O. PROCEDURE: CT HEAD/BRAIN WO CON INDICATIONS: fall hit head and head laceration TECHNIQUE: Noncontrast 4.5 mm thick angled axial sections acquired from the foramen magnum to the vertex, with coronal and sagittal reformats. For radiation dose reduction, the following was used: automated exposure control, adjustment of mA and/or kV according to patient size. COMPARISON: [facility], MR, MR HEAD/BRAIN WO CON, 11/25/2019, 11:37. [facility], CT, CT CERVICAL SPINE WO CON, 01/20/2021, 10:27. [facility], CT, CT HEAD/BRAIN WO CON, 11/24/2020, 10:43. FINDINGS: Image quality: Excellent. CSF spaces: Basal cisterns are patent. No extra-axial fluid collections. The ventricles are symmetric in size and shape. Brain: No intracranial bleeds or masses. There is cerebral volume loss for age, with resultant ventricular and sulcal prominence. There are periventricular and deep white matter chronic small vessel ischemic changes. There is intracranial internal carotid artery atherosclerosis. Skull and face: There is a repaired scalp laceration seen involving the right occipital region. No underlying calvarial fracture is seen. Calvarium and visualized facial bones appear intact, without suspicious lesions. Sinuses: Visualized sinuses and mastoids are clear. IMPRESSION: No acute intracranial hemorrhage is seen. No acute intracranial process is seen. Repaired right posterior scalp laceration. Dictated by: David Torres M.D. on 01/20/2021 at 9:46 Approved by: David Torres M.D. on 01/20/2021 at 9:48 CT - cervical spine: Radiologist's Impression: [address] [id number] Scan ReportSigned Patient: Crystal Nickerson MMR#: [id number]: [id number]:[id number]/Sex: 75 / FDate of Service: 01/20/21Loc: EDAccession Number: [id number] Procedure: CT cervical spine wo con Ordering Provider: Schuyler Moss D.O. PROCEDURE: CT CERVICAL SPINE WO CON INDICATIONS: fall hx oc cervical fx no pain TECHNIQUE: Noncontrast 3 mm thick sections acquired from the skull base to the T4 level. Sagittal and coronal reformats were then constructed. For radiation dose reduction, the following was used: automated exposure control, adjustment of mA and/or kV according to patient size. COMPARISON: [facility], CT, CT CERVICAL SPINE WO CON, 11/24/2020, 10:43. FINDINGS: Image quality: Excellent. Bones: There is straightening of normal cervical lordosis with minimal retrolisthesis of C3 on C4 and minimal anterolisthesis of C4 on C5. Previously noted fracture involving tip of right C1 transverse process is seen with interval healing at fracture site. No acute fracture or dislocation. Vertebral body heights are preserved. Decreased intervertebral disc space and degenerative endplate changes throughout cervical spine is seen. Visualized superior ribs are intact. Soft tissues: Prevertebral soft tissues are normal in thickness. No paravertebral hematomas. No apical pneumothoraces. IMPRESSION: 1. Healing at comminuted right C1 transverse process fracture site. No new cervical spine fracture or dislocation is seen. 2. Degenerative disc disease throughout cervical spine not significantly changed from prior study. Dictated by: Rolly Serrano M.D. on 01/20/2021 at 10:54 Approved by: Rolly Serrano M.D. on 01/20/2021 at 11:00 [facility] Narrative Medical decision making narrative: Her head CT and cervical spine CT were ordered secondary to her history, Parkinson's disease, prior cervical spine fracture and also per family request. These CT scans were subsequently unremarkable for any new acute fractures. The scalp laceration was closed with aby and she was given care instructions and return precautions. This does appear to be a mechanical fall most likely secondary to or balance issues secondary to Parkinson's disease. She was given care instructions and return precautions. She expressed understanding and agreement. Discharge Plan Departure Patient Disposition: Home Clinical Impression: Laceration of scalp Instructions: DI for Laceration Repair -- Aby Activity Restrictions/Additional Instructions: Continue all of your medications as directed. The aby do need to be removed in 7-10 days. Please contact your primary provider for this. No restrictions on your activities. You can shower like normal. Return to the emergency department for any new or worsening symptoms Prescriptions: No Action sertraline 100 mg tablet 100 mg PO QAM RF: 0 donepezil 5 mg tablet 5 mg PO QAM RF: 0 carbidopa-levodopa 25-100 mg tablet 1 tab PO 5XD RF: 0 Referrals: Helen Burroughs MD [Primary Care Provider] -
[2021-01-20] MEDS: LIDO 1%/SOD BICARB 8.4% (10ML) 10 ML SYRINGE INJ (10:05)
--- NOTE | 2021-01-20 10:25 | DI.CT.S_ITS ---
PROCEDURE: CT HEAD/BRAIN WO CON INDICATIONS: fall hit head and head laceration TECHNIQUE: Noncontrast 4.5 mm thick angled axial sections acquired from the foramen magnum to the vertex, with coronal and sagittal reformats. For radiation dose reduction, the following was used: automated exposure control, adjustment of mA and/or kV according to patient size. COMPARISON: [facility], MR, MR HEAD/BRAIN WO CON, 11/25/2019, 11:37. [facility], CT, CT CERVICAL SPINE WO CON, 01/20/2021, 10:27. [facility], CT, CT HEAD/BRAIN WO CON, 11/24/2020, 10:43. FINDINGS: Image quality: Excellent. CSF spaces: Basal cisterns are patent. No extra-axial fluid collections. The ventricles are symmetric in size and shape. Brain: No intracranial bleeds or masses. There is cerebral volume loss for age, with resultant ventricular and sulcal prominence. There are periventricular and deep white matter chronic small vessel ischemic changes. There is intracranial internal carotid artery atherosclerosis. Skull and face: There is a repaired scalp laceration seen involving the right occipital region. No underlying calvarial fracture is seen. Calvarium and visualized facial bones appear intact, without suspicious lesions. Sinuses: Visualized sinuses and mastoids are clear. IMPRESSION: No acute intracranial hemorrhage is seen. No acute intracranial process is seen. Repaired right posterior scalp laceration. Dictated by: David Torres M.D. on 01/20/2021 at 9:46 Approved by: David Torres M.D. on 01/20/2021 at 9:48
--- NOTE | 2021-01-20 10:25 | DI.CT.S_ITS ---
PROCEDURE: CT CERVICAL SPINE WO CON INDICATIONS: fall hx oc cervical fx no pain TECHNIQUE: Noncontrast 3 mm thick sections acquired from the skull base to the T4 level. Sagittal and coronal reformats were then constructed. For radiation dose reduction, the following was used: automated exposure control, adjustment of mA and/or kV according to patient size. COMPARISON: [facility], CT, CT CERVICAL SPINE WO CON, 11/24/2020, 10:43. FINDINGS: Image quality: Excellent. Bones: There is straightening of normal cervical lordosis with minimal retrolisthesis of C3 on C4 and minimal anterolisthesis of C4 on C5. Previously noted fracture involving tip of right C1 transverse process is seen with interval healing at fracture site. No acute fracture or dislocation. Vertebral body heights are preserved. Decreased intervertebral disc space and degenerative endplate changes throughout cervical spine is seen. Visualized superior ribs are intact. Soft tissues: Prevertebral soft tissues are normal in thickness. No paravertebral hematomas. No apical pneumothoraces. IMPRESSION: 1. Healing at comminuted right C1 transverse process fracture site. No new cervical spine fracture or dislocation is seen. 2. Degenerative disc disease throughout cervical spine not significantly changed from prior study. Dictated by: Rolly Serrano M.D. on 01/20/2021 at 10:54 Approved by: Rolly Serrano M.D. on 01/20/2021 at 11:00
[2021-01-20 11:41] VITALS: BP 108/55; PULSE 68; RESP 16; O2SAT 98
== END 2021-01-20 11:42 | disposition home or self-care (01) ==
PROVIDERS: Emergency Provider Emergency Medicine; Family Provider Internal Medicine; PCP Internal Medicine
DX: S01.01XA Laceration without foreign body of scalp, initial encounter (principal); G20 Parkinson's disease; W19.XXXA Unspecified fall, initial encounter
CPT/HCPCS: 12002; 70450; 72125; 99283; 99284

== ENCOUNTER 2021-03-09 16:21 | Emergency (ER) | payer MEDICARE, OTHER, SELFPAY ==
[2021-03-09 16:26] VITALS: BP 141/73; PULSE 87; RESP 16; TEMP 37; O2SAT 97
--- NOTE | 2021-03-09 16:32 | DI.CT.S_ITS ---
PROCEDURE: CT CERVICAL SPINE WO CON INDICATIONS: fall, altered mental status TECHNIQUE: Noncontrast 3 mm thick sections acquired from the skull base to the T4 level. Sagittal and coronal reformats were then constructed. For radiation dose reduction, the following was used: automated exposure control, adjustment of mA and/or kV according to patient size. COMPARISON: [facility], CT, CT CERVICAL SPINE WO CON, 01/20/2021, 10:27. FINDINGS: Image quality: Excellent. Bones: No fractures or dislocations. Visualized superior ribs are intact. Cervical straightening is present. There is trace retrolisthesis of C3 on C4, C5 on C6 and trace anterolisthesis of C4 on C5, unchanged. Soft tissues: Prevertebral soft tissues are normal in thickness. No paravertebral hematomas. No apical pneumothoraces. IMPRESSION: Multilevel degenerative changes without visualized fracture. Dictated by: Melia Zee M.D. on 03/09/2021 at 16:52 Approved by: Melia Zee M.D. on 03/09/2021 at 16:53
--- NOTE | 2021-03-09 16:32 | DI.CT.S_ITS ---
PROCEDURE: CT HEAD/BRAIN WO CON INDICATIONS: fall, mental status change TECHNIQUE: Noncontrast 4.5 mm thick angled axial sections acquired from the foramen magnum to the vertex, with coronal and sagittal reformats. For radiation dose reduction, the following was used: automated exposure control, adjustment of mA and/or kV according to patient size. COMPARISON: [facility], CT, CT HEAD/BRAIN WO CON, 01/20/2021, 10:27. FINDINGS: Image quality: Excellent. CSF spaces: Basal cisterns are patent. No extra-axial fluid collections. The ventricles are symmetric in size and shape. Brain: No intracranial bleeds or masses. There is cerebral volume loss for age, with resultant ventricular and sulcal prominence. There are periventricular and deep white matter chronic small vessel ischemic changes. There is intracranial internal carotid artery atherosclerosis. Skull and face: Calvarium and visualized facial bones appear intact, without suspicious lesions. Right frontal scalp hematoma. Sinuses: Visualized sinuses and mastoids are clear. IMPRESSION: 1. No acute intracranial process. Right frontal scalp hematoma. 2. Moderate atrophy and chronic microvascular ischemic changes. Dictated by: Melia Zee M.D. on 03/09/2021 at 16:51 Approved by: Melia Zee M.D. on 03/09/2021 at 16:52
--- NOTE | 2021-03-09 17:33 | ED.HEATRA ---
HPI - Head Injury General Chief complaint: Head Injury Stated complaint: fall, change in mental status Time Seen by Provider: 03/09/21 16:32 Source: patient Mode of arrival: Wheelchair Limitations: no limitations History of Present Illness HPI Narrative: The patient has Parkinson's with serous balance issues. She falls frequently. Today she was sitting in her living room, watching TV. Her was several feet away, but did not see her get up. She fell to the floor striking her right forehead. She does not remember falling. She was not having chest pain, palpitations, or dyspnea. She was unconscious for several minutes. She was confused when she did wake up. She has been seen here multiple times for falls with head injury. She has walker, but her has resorted to moving her in a wheelchair. She has no history of stroke, cardiac disease, or arrhythmia. She has no recent illness. She is not anticoagulated. Related Data Home Medications Medication Instructions Recorded Confirmed carbidopa 25 mg-levodopa 100 mg 1 tab PO 5XD 11/24/20 01/31/21 tablet donepezil 5 mg tablet 5 mg PO QAM 11/24/20 01/31/21 sertraline 100 mg tablet 100 mg PO QAM 11/24/20 01/31/21 pramipexole 0.125 mg tablet 0.125 mg PO DAILY 01/31/21 01/31/21 Allergies Allergy/AdvReac Type Severity Reaction Status Date / Time No Known Drug Allergies Allergy Verified 11/24/20 10:45 Review of Systems Constitutional Constitutional: Denies body ache(s), Denies chills, Denies fever(s), Reports headache(s) and Denies weakness Eyes Eyes: Denies blurry vision, Denies change in vision and Reports other (No eye injury) ENT Ears, Nose, Mouth, and Throat: Denies dysphagia, Denies vertigo, Denies dizziness, Reports headache(s), Denies hoarseness, Denies nose pain, Denies sinus pressure and Denies sore throat Cardiovascular Cardiovascular: Denies chest pain, Reports syncope, Denies rapid heart rate and Denies dyspnea Respiratory Respiratory: Denies chest congestion, Denies cough and Denies dyspnea Gastrointestinal Gastrointestinal: Denies abdominal pain, Denies constipation, Denies dysphagia and Denies nausea Genitourinary Genitourinary: Denies dysuria Musculoskeletal Musculoskeletal: Reports as per HPI Integumentary/Breasts Skin/Breast: Denies lesions, Denies rash and Denies wounds Neurologic Neurologic: Reports abnormal movements, Denies abnormal speech, Denies confusion, Denies vertigo, Denies dizziness, Reports syncope, Reports headache(s), Denies seizure-like activity and Denies weakness Psychiatric Psychiatric: Denies confusion Hematologic/Lymphatic On Anticoagulants: No Patient History Medical History Arthritis Chickenpox (~1957) History of recurrent ear infection Hx of fracture of wrist (~11/2012) Hyperlipemia Measles Osteopenia (1990) Ovarian cyst (1977) Peptic ulcer disease (1987) Surgical History History of breast augmentation (2002) Hx of thumb surgery (2003) Status post breast lumpectomy Family History Mother Alcoholism Father Cancer Sister Breast cancer Sister No problems noted. Social History household members: spouse Smoking Status: Never smoker second hand exposure: No alcohol intake: current (a glass of wine occasionally. ) substance use type: does not use Smoking Status: Never smoker alcohol intake frequency: 0-2 drinks per day Substance Use Type: does not use Exam Initial Vital Signs Initial Vital Signs: Vital Signs Temperature 98.6 F 03/09/21 16:26 Pulse Rate 87 03/09/21 16:26 Respiratory Rate 16 03/09/21 16:26 Blood Pressure 141/73 H 03/09/21 16:26 Pulse Oximetry 97 03/09/21 16:26 Const General: cooperative, healthy appearing and comfortable [facility] Head: contusion (Right forehead hematoma without bony abnormality), No laceration and No scalp lesion Ears: external ears normal and TM's normal bilaterally Nose: nares normal Face and sinus: normal facial exam Mouth: oral mucosae normal Throat: posterior oropharynx normal Eyes Pupils: PERRL EOM: EOM intact bilaterally and No nystagmus Neck Neck: normal visual inspection, full ROM, No tender and No JVD Chest Chest: normal inspection of the chest and normal palpation of entire chest wall Resp Auscultation: clear to auscultation bilaterally Cardio Rate: regular rate Rhythm: regular rhythm Heart Sounds: S1 normal, S2 normal and no murmurs Pulses: brachial pulses present GI Inspection: normal to inspection Palpation: No tender Auscultation: normal bowel sounds Back/Spine/Pelvis Back: normal to inspection, No back tenderness and No CVA tenderness Skin General: no rashes or lesions noted Neuro General: patient alert, patient awake, patient oriented x3 and no focal motor deficits Cranial Nerves: No nystagmus Cognition: normal cognition Speech: speech normal Motor: muscle tone normal throughout Sensory Exam: no sensory deficits noted Other: NIHSS is 0 Extrem General: normal to inspection, full ROM and no pedal edema Right lower extremity: hip/thigh Details: Negative for no tenderness and no swelling Psych Appearance: grossly normal Course Course Course Narrative: The patient appears to have followed her pattern of falling due to poor balance. It is unclear if she had syncope, though in this situation. A prolonged QTC is noted, she has no arrhythmia history. She is advised to follow-up with her PCM. Orders Ordered: ED Orders 03/09/21 16:32 CT cervical spine wo con Stat CT head/brain wo con Stat 03/09/21 17:42 Basic Metabolic Panel Stat Complete Blood Count AUTO DIFF Stat Prothrombin Time INR Stat EKG-12 Lead Stat Vital Signs Vital signs: Vital Signs - 8 hr 03/09/21 16:26 Temperature 98.6 F Pulse Rate 87 Respiratory Rate 16 Blood Pressure 141/73 H Pulse Oximetry 97 MDM - Head Injury Lab Data Result diagrams: 03/09/21 18:04 03/09/21 18:04 Labs: Lab Results 03/09/21 03/09/21 03/09/21 Range/Units 18:04 18:04 18:04 WBC 6.0 (4.5-11.0) X10^3/uL RBC 3.91 L (4.0-5.2) X10^6/uL Hgb 12.2 (12.0-16.0) g/dL Hct 36.1 (36-46) % MCV 92.4 (80-100) fL MCH 31.2 (26-34) PG MCHC 33.8 (30-36) % RDW 14.1 (11.6-14.8) % Plt Count 266 (150-400) X10^3/uL Neut % (Auto) 74.3 (50-75) % Lymph % (Auto) 13.9 L (25-40) % [place] % (Auto) 10.2 (3-14) % Eos % (Auto) 0.6 L (2-4) % Baso % (Auto) 1.0 (0-2) % Neut # (Auto) 4500 (4096-7457) /uL Lymph # (Auto) 800 L (0257-5965) /uL [place] # (Auto) 600 (0-900) /uL Eos # (Auto) 0 (0-450) /uL Baso # (Auto) 100 (0-100) /uL PT 10.8 (10.1-12.7) SECONDS INR 1.0 (0.9-1.3) Sodium 134 L (137-145) mmol/L Potassium 4.4 (3.4-5.1) mmol/L Chloride 100 (98-107) mmol/L Carbon Dioxide 27 (22-32) mmol/L BUN 17 (7-17) mg/dL Creatinine 0.79 (0.52-1.04) mg/dL Estimated GFR > 60.0 (>60) mL/min BUN/Creatinine Ratio 21.5 (6-22) Glucose 94 (80-110) mg/dL Calcium 9.2 (8.4-10.2) mg/dL Imaging Data CT - cervical spine: Radiologist's Impression: [address] [address] [address] Scan Report Signed Patient: Crystal Nickerson MR#: [id number] : 1945 Acct:[id number] Age/Sex: 75 / F Date of Service: 03/09/21 Loc: ED Accession Number: [id number] ?? Procedure: CT cervical spine wo con Ordering Provider: Lucy Lara P.A-C PROCEDURE:? CT CERVICAL SPINE WO CON ? INDICATIONS:? fall, altered mental status ? TECHNIQUE:? Noncontrast 3 mm thick sections acquired from the skull base to the T4 level.? Sagittal and coronal reformats were then constructed.? For radiation dose reduction, the following was used:? automated exposure control, adjustment of mA and/or kV according to patient size.? ? COMPARISON:? [facility], CT, CT CERVICAL SPINE WO CON, 01/20/2021, 10:27. ? FINDINGS:? Image quality:? Excellent.? ? Bones:? No fractures or dislocations.? Visualized superior ribs are intact.? Cervical straightening is present.? There is trace retrolisthesis of C3 on C4, C5 on C6 and trace anterolisthesis of C4 on C5, unchanged. ? Soft tissues:? Prevertebral soft tissues are normal in thickness.? No paravertebral hematomas.? No apical pneumothoraces.? ? ? IMPRESSION:? Multilevel degenerative changes without visualized fracture. ? Dictated by: Melia Zee M.D. on 03/09/2021 at 16:52 ? ? Approved by: Melia Zee M.D. on 03/09/2021 at 16:53?? CT scan - head: Radiologist's Impression: [place] [address] CT Scan Report Signed Patient: Crystal Nickerson MR#: [id number] : 1945 Acct:[id number] Age/Sex: 75 / F Date of Service: 03/09/21 Loc: ED Accession Number: [id number] ?? Procedure: CT head/brain wo con Ordering Provider: Lucy Lara P.A-C PROCEDURE:? CT HEAD/BRAIN WO CON ? INDICATIONS:? fall, mental status change ? TECHNIQUE:? Noncontrast 4.5 mm thick angled axial sections acquired from the foramen magnum to the vertex, with coronal and sagittal reformats.? For radiation dose reduction, the following was used:? automated exposure control, adjustment of mA and/or kV according to patient size.? ? COMPARISON:? [facility], CT, CT HEAD/BRAIN WO CON, 01/20/2021, 10:27. ? FINDINGS:? Image quality:? Excellent.? ? CSF spaces:? Basal cisterns are patent.? No extra-axial fluid collections.? The ventricles are symmetric in size and shape.? ? Brain:? No intracranial bleeds or masses.? There is cerebral volume loss for age, with resultant ventricular and sulcal prominence.? There are periventricular and deep white matter chronic small vessel ischemic changes.? There is intracranial internal carotid artery atherosclerosis.? ? Skull and face:? Calvarium and visualized facial bones appear intact, without suspicious lesions.? Right frontal scalp hematoma. ? Sinuses:? Visualized sinuses and mastoids are clear.? ? IMPRESSION:? ? 1. No acute intracranial process.? Right frontal scalp hematoma. ? 2. Moderate atrophy and chronic microvascular ischemic changes. ? ? ? Dictated by: Melia Zee M.D. on 03/09/2021 at 16:51 ? ? Approved by: Melia Zee M.D. on 03/09/2021 at 16:52?? ECG Data Attestation: I personally reviewed and interpreted this ECG as follows: (Normal sinus rhythm rate 82 beats per minute. Normal intervals. No ectopy. No acute ST T wave changes. QTC 432 , QTC 504.) Discharge Plan Departure Patient Disposition: Home Clinical Impression: Parkinson's disease Contusion of forehead Qualifiers: Encounter type: initial encounter Qualified Code(s): S00.83XA - Contusion of other part of head, initial encounter Concussion Qualifiers: Encounter type: initial encounter Instructions: Concussion Activity Restrictions/Additional Instructions: Continue current medications. I suggest you follow up with her PCM, noting her past history the 1 thing I would add would be possibly at home cardiac monitoring. Give Tylenol for her headache. Return here as needed. Prescriptions: No Action sertraline 100 mg tablet 100 mg PO QAM RF: 0 donepezil 5 mg tablet 5 mg PO QAM RF: 0 carbidopa-levodopa 25-100 mg tablet 1 tab PO 5XD RF: 0 pramipexole 0.125 mg tablet 0.125 mg PO DAILY RF: 0 Referrals: Helen Burroughs MD [Primary Care Provider] -
[2021-03-09 18:22] LABS: Add Manual Diff / Slide Review NO; Basophils Absolute Auto 100 /uL (0-100); Eosinophils Absolute Auto 0 /uL (0-450); Eosinophils Percent Auto 0.6 % (2-4); Hematocrit 36.1 % (36-46); Hemoglobin 12.2 g/dL (12.0-16.0); Lymphocytes Absolute Auto 800 /uL (1100-4500); Lymphocytes Percent Auto 13.9 % (25-40); Mean Corpuscular HGB Conc 33.8 % (30-36); Mean Corpuscular Hemoglobin 31.2 PG (26-34); Mean Corpuscular Volume 92.4 fL (80-100); Monocytes Absolute Auto 600 /uL (0-900); Monocytes Percent Auto 10.2 % (3-14); Neutrophils Absolute Auto 4500 /uL (1500-7000); Neutrophils Percent Auto 74.3 % (50-75); Platelet Count 266 X10^3/uL (150-400); Red Blood Cell Count 3.91 X10^6/uL (4.0-5.2); Red Cell Distribution Width 14.1 % (11.6-14.8)
[2021-03-09 18:41] LABS: Prothrombin Time 10.8 SECONDS (10.1-12.7)
[2021-03-09 18:45] LABS: BUN Creatinine Ratio 21.5 (6-22); Blood Urea Nitrogen 17 mg/dL (7-17); Calcium 9.2 mg/dL (8.4-10.2); Carbon Dioxide 27 mmol/L (22-32); Chloride 100 mmol/L (98-107); Estimated Glomerular Filt Rate > 60.0 mL/min (>60); Glucose 94 mg/dL (80-110); HEMOLYSIS < 15 (0-50); Potassium 4.4 mmol/L (3.4-5.1); Sodium 134 mmol/L (137-145)
[2021-03-09 19:14] VITALS: BP 146/74; PULSE 86; RESP 16; O2SAT 98
== END 2021-03-09 19:15 | disposition home or self-care (01) ==
PROVIDERS: Emergency Provider Emergency Medicine; Family Provider Internal Medicine; PCP Internal Medicine
DX: S06.0X1A Concussion with loss of consciousness of 30 minutes or less, initial encounter (principal); S00.83XA Contusion of other part of head, initial encounter; G20 Parkinson's disease; R29.6 Repeated falls; R51.9 Headache, unspecified; W19.XXXA Unspecified fall, initial encounter
CPT/HCPCS: 36415; 70450; 72125; 80048; 85025; 85610; 93005; 99282; 99284

== ENCOUNTER 2021-04-11 10:43 | Emergency (ER) | payer MEDICARE, OTHER, SELFPAY ==
[2021-04-11 10:48] VITALS: BP 124/67; PULSE 84; RESP 14; TEMP 35.9; O2SAT 98; BMI 20.7
== END 2021-04-11 11:43 | disposition left against medical advice (07) ==
PROVIDERS: Emergency Provider Emergency Medicine; Family Provider Internal Medicine; PCP Internal Medicine
CPT/HCPCS: 99281

== ENCOUNTER 2021-04-11 15:10 | Emergency (ER) | payer SELFPAY ==
[2021-04-11 15:38] VITALS: BP 141/62; PULSE 86; RESP 16; TEMP 36.2; O2SAT 98; BMI 19.5
== END 2021-04-11 15:45 | disposition left against medical advice (07) ==
PROVIDERS: Emergency Provider Emergency Medicine; Family Provider Internal Medicine; PCP Internal Medicine

== ENCOUNTER → 2021-08-15 09:55 | Outpatient (CLI) | payer MEDICARE, OTHER, SELFPAY ==
--- NOTE | 2021-08-15 | DI.RAD.S_ITS ---
PROCEDURE: FL BARIUM SWALLOW W SPEECH INDICATIONS: Dysphagia, oropharyngeal phase COMPARISON: TECHNIQUE: Examination was conducted in conjunction with speech pathology per standard protocol. In the lateral projection, filming was performed of the patient swallowing. AP projection filming may also be performed with patient swallowing. COMPARISON: [facility], CT, CT HEAD/BRAIN WO CON, 03/09/2021, 16:38. FINDINGS: Function: The oral preparatory phase appears normal, with proper containment. The subsequent oral propulsive phase, pharyngeal phase, and esophageal phase of swallowing also appear normal with all proffered substances. No laryngotracheal penetration or aspiration. No pathologic vallecular pooling. Morphology: No cricopharyngeal bar is identified. No cervical esophageal webs. No Zenker's diverticulum. No strictures. IMPRESSION: No laryngeal tracheal penetration or aspiration. Please see speech pathologist's report for detail. Dictated by: Jake Cali M.D. on 08/15/2021 at 13:41 Approved by: Jake Cali M.D. on 08/15/2021 at 13:42
--- NOTE | 2021-08-16 11:45 | ST.SWALLOW ---
Visit Care Team Role Provider Type Helen Burroughs MD Attending Provider Physician Family Provider Primary Care Provider Referring Provider Specialty: Internal Medicine Address: [address] [place] [address], [address] Email: [email or web address] Modified Barium Swallow Study MOTOR VEHICLE FIELD REPRESENTATIVE Modified Barium Swallow Study Start: 08/15/21 13:39 Freq: Status: Active Protocol: Document 08/15/21 13:39 LNK (Rec: 08/15/21 14:29 LNK [email or web address]) Modified Barium Swallow Study Total Time Visit Start Time 10:30 Visit Stop Time 11:00 Total Visit Minutes [address] Helen Burroughs Reason for Referral dysphagia Setting Setting Outpatient Care Patient Information Identification Type Name,Date of Patient History Pt was seen for a Modified Barium Swallow Study as per her physician, Dr. Burroughs. Pt has been seen for dysphagia treatment by TAMMY Clay at [facility] with a clinical dysphagia evaluation completed on 08/09/21. The results of that evaluation noted that the pt frequently cleared her throat, even prior to oral intake trials. The pt reported feeling there is a sense of something...in my throat. She described the feeling as a fluid/water build up. Swallowing was assessed via oral trials including pureed texture and thin liquids. The pt reported consistent feelings of pharyngeal residue, minimized somewhat with postural head changes, no one change better than the others. No reduction in throat clearing was noted; pt cleared throat after all trials. No coughing or wet vocal quality were noted. MBSS was recommended. Subjective Observations Pt was seated in her wheel chair for the MBSS. Instructions and procedures were described for the pt who indicated she understood and agreed to proceed. Patient Positioning Position View Lateral Imaging Lateral View Textures Administered Trials Presented Thin Liquid via Spoon,Thin Liquid via Cup,Lipan Liquid via Spoon,Honey Liquid via Spoon,Pudding Thick Liquid via Spoon,Dysphagia Mechanical Textures,Regular Textures Oral Phase Source: MBSIMP (TM) (C) Bolus Specific Scoring Grid Lip Closure Mild Impairment Tongue Control During Bolus Hold Mild Impairment Bolus Prep/Mastication WFL Bolus Transport/Lingual Motion Mild Impairment A/P Lingual Propulsion Delay Yes: For solid bolus trials Oral Residue Minimal Impairment Residue Clearing WFL Nasal Regurgitation No Additional Oral Phase Observations Pt's speech intelligibility was good. Oral structures were judged to be adequate for mastication. OME noted ROM reduced as well as speed and strength for DKS. ORAL PHASE: Observed weak labial closure with difficulty with liquids escaping closure. Tongue control was reduced with premature spillage to the valeculla before the swallow response was observed. Lingual rocking was observed with solid trials. Minimal to mild oral residue was seen post swallow, which was cleared spontaneously with subsequent swallows. Pharyngeal Phase Source: MBSIMP (TM) (C) Bolus Specific Scoring Grid Delayed Initiation of Pharyngeal Swallow Yes: Premature spillage to vallecula before swallow response was observed Soft Palate Elevation WFL Tongue Base Strength/Range of Motion Mild Impairment Residue Along the Tongue Base Yes Clearance of Residue Along Tongue Base Minimal Impairment Laryngeal Elevation WFL Anterior Hyoid Movement WFL Epiglottic Range of Motion WFL Vallecular Residue Yes: Trace to mild residue which cleared with spontaneous second swallow Clearance of Vallecular Residue Minimal Impairment Laryngeal Vestibular Closure Minimal Impairment Pharyngeal Stripping Wave Mild Impairment Posterior Pharyngeal Wall Residue Yes: trace to minimal Clearance of Posterior Pharyngeal Wall WFL Residue Upper Esophageal Sphincter Opening WFL Residue in the Pyriform Sinuses No Esophageal Clearance Upright Position WFL Pharyngoesophageal Backflow Observed No Additional Pharyngeal Phase Observations PHARYNGEAL PHASE: The patient presented with minimal to mild pharyngeal phase dysphagia. Hyolaryngeal elevation and movement were observed to be WFL. Epiglottic inversion and laryngeal seal were adequate to protect the airway. Mild tongue base weakness was observed resulting in mild to moderate pharyngeal contrast pooling: spontaneous second swallows were observed to clear pooled contrast. Flash penetration x1 was observed, which is considered to be normal for older pts. No other penetration or aspiration was observed. Pt did not cough or clear her throat during the evaluation. A/P View Esophageal Observations Esophageal Function esophagus was not screened Clinical Impressions Dysphagia Type mild oropharyngeal dysphagia Findings Mild oropharyngeal dysphagia characterized by weak and slow oromotor skills. Pt is able to chew foods adequately but at a slower pace. Tongue control of liquids and solids noted to be mildy impaired with premature escape of the boluses from the oral cavity into the pharynx. Pharyngeal pooling was observed within the pharynx and was cleared following second swallow. Using a second swallow per bite/drink when eating appears to be a good strategy to increase safety when swallowing, reducing cough/ choking episodes. Continued dysphagia therapy is recommended for the pt. Safe swallow strategies as well as pt/family education would continue to be target in treatment. Rehabilitation Potential Fair Patient Appropriate for Therapy Yes: Continue current therapeutic program with MOTOR VEHICLE FIELD REPRESENTATIVE Recommendations Diet Liquids Order [place] Diet Order Dysphagia Mechanical Medication Recommendation Whole in Carrier,Crushed in Carrier Additional Dietary Needs 1:1 Assistance,Encourage to Self-Feed Aspiration Precautions Recommended Precautions Upright at 90 Degrees,Frequent Rest Periods,Small Bites/Sips ,Double Swallow Treatment Plan Therapy Recommendations Outpatient Speech Therapy Additional Therapy Recommendations Continue current dysphagia therapy program with her MOTOR VEHICLE FIELD REPRESENTATIVE Compensatory Strategies Recommendations Sitting Upright (90 deg),Small Bites and Sips Short Term Goals see goals established by current MOTOR VEHICLE FIELD REPRESENTATIVE
== END ==
PROVIDERS: Family Provider Internal Medicine; PCP Internal Medicine; Referring Provider Internal Medicine; Visit Provider Internal Medicine
DX: R13.12 Dysphagia, oropharyngeal phase (principal)
CPT/HCPCS: 74230; 92507

== ENCOUNTER → 2021-10-28 17:41 | Outpatient (CLI) | payer MEDICARE, OTHER, SELFPAY | PROVIDERS: Family Provider Internal Medicine; PCP Internal Medicine; Visit Provider Nurse Practitioner Family | DX: N39.0 Urinary tract infection, site not specified (principal) | CPT/HCPCS: 87077; 87086; 87186 ==

== ENCOUNTER 2021-12-22 13:45 | Outpatient (RCR) | payer MEDICARE, OTHER, SELFPAY ==
--- NOTE | 2020-11-23 15:52 | PT.OIE ---
Current Diagnoses Parkinson's disease (11/23/20) Other abnormalities of gait and mobility (11/23/20) History of falling (11/23/20) Past Medical History (Last Reviewed 08/27/20 @ 18:30 by Pamela Sierra DO) Arthritis Chickenpox (~1957) History of recurrent ear infection Hx of fracture of wrist (~11/2012) Hyperlipemia Measles Osteopenia (1990) Ovarian cyst (1977) Peptic ulcer disease (1987) Past Surgical History (Last Reviewed 08/27/20 @ 18:30 by Pamela Sierra DO) History of breast augmentation (2002) Hx of thumb surgery (2003) Status post breast lumpectomy Visit Care Team Role Provider Type Helen Burroughs MD Family Provider Physician Primary Care Provider Specialty: Internal Medicine Address: [address] [place] [address], [facility] Email: [email or web address] Attending Provider Referring Provider Specialty: Address: Phone: Fax: Email: Physical Therapy Initial Evaluation PT-OP-A Visit Information Start: 11/23/20 13:39 Freq: Status: Active Protocol: Document 11/23/20 14:15 AMB (Rec: 11/23/20 15:46 AMB [email or web address]) Out-Patient Physical Therapy Visit Information Visit Information Visit Type Initial Evaluation Visit Start Time 14:15 Visit Stop Time 15:00 Total Visit Minutes 45 Visit Number 1 PT-OP-B Current Condition Start: 11/23/20 13:39 Freq: Status: Active Protocol: Document 11/23/20 14:15 AMB (Rec: 11/23/20 14:28 AMB [email or web address]) Current Condition History of Current Condition Onset Date years Current Complaints fall history, Parkinsons History of Current Condition Crystal returns to physical therapy to continue to reduce her fall risk. She reports a bad fall going into the shower fell in October and hit her head. Multiple other small falls. She does report that she now uses the walker in the house. Also has noticed reaching for things that are out of reach causes falls. Lives in a two story house with her . Has a walk in shower without grab bars. L shoulder pain with stretching- did have clavicle fracture that she reports healed poory- sleeping on the shoulder is challenging. Difficult to get up from the floor- does have knee pain with kneeling. No longer doing the laundry- takes it to a laundromat. No longer wearing her glasses, no longer cooks. Doing BIG exercises, reads. My doesn't let me do anything any more. Prior Treatments and Tests BIG therapy recently have continued on with exercises Treatment Goals Patient/Caregiver Goals I'd like how to use my walker better, going in and out of doorways, getting in and out of the car. Prior Functional Status Baseline Function- ADL's Modified Independent Baseline Function- Mobility Modified Independent Current Functional Impairments (Reported) Functional Limitations- ADL's No longer does laundry, no longer cooks, falls with ADLS like bathing, dressing Personal Factors Other Personal Factors That May Effect Long history of falls, vision Therapy/Recovery issues, recall issues PT-OP-E Functional Tests Start: 11/23/20 13:39 Freq: Status: Active Protocol: Document 11/23/20 14:15 AMB (Rec: 11/23/20 15:46 AMB [email or web address]) Functional Tests 10 Meter Walk Test Distance 13 seconds Device Used 4WW Five Times Sit to Stand Test Score 31 seconds Timed Up and Go (TUG) Score 37 seconds Comments 4WW TUG Impairment Rating 100% Impaired (Score 20) PT-OP-G Mobility & Gait Start: 11/23/20 13:39 Freq: Status: Active Protocol: Document 11/23/20 14:15 AMB (Rec: 11/23/20 15:46 AMB [email or web address]) OP Mobility Evaluation Transfers Sit to Stand Poor habits--pt tends to pull on 4WW, stop before the chair and then walk a few steps from walker to chair-- all despite extensive prior training in correct usage. OP Gait Assessment Assistive Devices Assistive Device 4 Wheeled Walker Gait Deviations General Gait Pattern Decreased Stride Length, Decreased Feet Clearance, Festinating,Lateral Trunk Lean ,Narrow Based Gait Stair Climbing Evaluation Evaluation Level of Assist On Stairs Standby Assistance Devices Stair Climbing Assistive Devices Left Railing Technique/Endurance Stair Climbing Direction Ascend and Descend Stair Climbing Technique Step to Step Number of Steps Climbed 8 PT-OP-J Posture/Palpation/Skin Start: 11/23/20 13:39 Freq: Status: Active Protocol: Document 11/23/20 14:15 AMB (Rec: 11/23/20 15:46 AMB [email or web address]) Posture Evaluation Comments Posture Comments scoliosis, tends to have severe cervical flexion PT-OP-M Strength Start: 11/23/20 13:39 Freq: Status: Active Protocol: Document 11/23/20 14:15 AMB (Rec: 11/23/20 15:46 AMB [email or web address]) Hip Strength Hip Manual Muscle Testing Right Flexion (L2) 4+ Good+ Extension (S1) 4- Good- Abduction 4 Good Left Flexion (L2) 4+ Good+ Extension (S1) 4- Good- Abduction 4 Good Knee Strength Knee Manual Muscle Testing Right Flexion (S2) 4- Good- Extension (L3) 4+ Good+ Left Flexion (S2) 4- Good- Extension (L3) 4+ Good+ PT-OP-T Assessment and Plan Start: 11/23/20 13:39 Freq: Status: Active Protocol: Document 11/23/20 14:15 AMB (Rec: 11/23/20 15:46 AMB [email or web address]) Physical Therapy Assessment Rehab Potential Rehabilitation Potential Fair Evaluation Complexity Number of Personal Factors/Comorbidities 1-2 Number of Body Systems Impaired 4 or More Clinical Presentation at Evaluation Evolving Impairments Impairments Balance,Functional Activities, Gait,Posture Goals Three Impairment Sit to stand Short Term Goal (STG) Crystal will improve her 5x sit to stand to 20 seconds or less . STG Duration 4 weeks Senior Living Goal (LTG) Crystal will move from sit to stand from a low chair without UE support with good balance. LTG Duration 8 weeks Two Impairment Gait Short Term Goal (STG) Crystal will walk with her 4WW for 6 minutes over smooth terrain without loss of balance or running into obstacles. STG Duration 4 weeks One Impairment Fall risk Short Term Goal (STG) Crystal will decrease her timed up and go score to 30 seconds or less to show decreased risk of falling. STG Duration 4 weeks Senior Living Goal (LTG) Crystal will use her 4WW appropriately when moving from walking to sitting ( remembering to reach for chair , not leaving 4WW and walking to chair, etc.). LTG Duration 8 weeks Assessment Summary Assessment Crystal attends physical therapy with continued fall history. First when asked how many falls she has had, she reports a bad fall in the shower last month, and the fall where she broke her left clavicle. However upon further questioning it sounds like she has had more falls that did not result in injury. She has multiple impairments that impact her ability to move without falling. Her vision, pathfinding, and problem solving greatly impact her fall risk and it will be difficult to change these in physical therapy. 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 She will benefit from physical therapy for further strengthening, and instruction in safety although her recall of this may be limited. Physical Therapy Plan Frequency and Duration Frequency of Treatment 1x/Week Duration of Treatment 12 weeks Plan of Care Start Date 11/23/20 Plan of Care End Date 02/15/21 Therapeutic Interventions Therapeutic Interventions Balance Training,Gait Training ,Home Exercise Program,Manual Therapy,Neuromuscular Re- education,Self-Care/Home Management,Therapeutic Activities,Therapeutic Exercises Next Visit Focus/Plan Next Note Type Treatment Note Next Visit Plan Safety with sit to stand and 4WW
--- NOTE | 2020-11-23 15:53 | PT.OPPOC ---
Physical, Occupational & Speech Therapy At [facility] Current Diagnoses Parkinson's disease (11/23/20) Other abnormalities of gait and mobility (11/23/20) History of falling (11/23/20) Visit Care Team Role Provider Type Helen Burroughs MD Family Provider Physician Primary Care Provider Specialty: Internal Medicine Address: [address] [place] [address], [facility] Email: [email or web address] Attending Provider Referring Provider Specialty: Address: Phone: Fax: Email: Plan Of Care PT-OP-T Assessment and Plan Start: 11/23/20 13:39 Freq: Status: Active Protocol: Document 11/23/20 14:15 AMB (Rec: 11/23/20 15:46 AMB [id number]) Physical Therapy Assessment Rehab Potential Rehabilitation Potential Fair Evaluation Complexity Number of Personal Factors/Comorbidities 1-2 Number of Body Systems Impaired 4 or More Clinical Presentation at Evaluation Evolving Impairments Impairments Balance,Functional Activities, Gait,Posture Goals Three Impairment Sit to stand Short Term Goal (STG) Crystal will improve her 5x sit to stand to 20 seconds or less . STG Duration 4 weeks Metal Tester Goal (LTG) Crystal will move from sit to stand from a low chair without UE support with good balance. LTG Duration 8 weeks Two Impairment Gait Short Term Goal (STG) Crystal will walk with her 4WW for 6 minutes over smooth terrain without loss of balance or running into obstacles. STG Duration 4 weeks One Impairment Fall risk Short Term Goal (STG) Crystal will decrease her timed up and go score to 30 seconds or less to show decreased risk of falling. STG Duration 4 weeks Correction Goal (LTG) Crystal will use her 4WW appropriately when moving from walking to sitting ( remembering to reach for chair , not leaving 4WW and walking to chair, etc.). LTG Duration 8 weeks Assessment Summary Assessment Crystal attends physical therapy with continued fall history. First when asked how many falls she has had, she reports a bad fall in the shower last month, and the fall where she broke her left clavicle. However upon further questioning it sounds like she has had more falls that did not result in injury. She has multiple impairments that impact her ability to move without falling. Her vision, pathfinding, and problem solving greatly impact her fall risk and it will be difficult to change these in physical therapy. 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 She will benefit from physical therapy for further strengthening, and instruction in safety although her recall of this may be limited. Physical Therapy Plan Frequency and Duration Frequency of Treatment 1x/Week Duration of Treatment 12 weeks Plan of Care Start Date 11/23/20 Plan of Care End Date 02/15/21 Therapeutic Interventions Therapeutic Interventions Balance Training,Gait Training ,Home Exercise Program,Manual Therapy,Neuromuscular Re- education,Self-Care/Home Management,Therapeutic Activities,Therapeutic Exercises Next Visit Focus/Plan Next Note Type Treatment Note Next Visit Plan Safety with sit to stand and 4WW Plan of Care Dates Plan of Care Start Date 11/23/20 Plan of Care End Date 02/15/21 Electronically Signed by: Maribel Fernández, PT 11/23/20 [id number] Please Sign and Return: I have reviewed this Plan of Care and certify that the skilled therapy services above are required to meet the patient?s needs. Physician Signature Date Printed Name and Credentials Clinical Instructor Signature Printed Name and Credentials
--- NOTE | 2020-12-06 16:01 | PT.OTN ---
Current Diagnoses Parkinson's disease (12/06/20) Other abnormalities of gait and mobility (12/06/20) History of falling (12/06/20) Physical Therapy Treatment Note PT-OP-A Visit Information Start: 11/23/20 13:39 Freq: Status: Active Protocol: Document 12/06/20 11:00 AMB (Rec: 12/06/20 11:36 AMB [id number]) Out-Patient Physical Therapy Visit Information Visit Information Visit Type Treatment Note Visit Start Time 11:00 Visit Stop Time 11:45 Total Visit Minutes 45 Visit Number 2 PT-OP-B Current Condition Start: 11/23/20 13:39 Freq: Status: Active Protocol: Document 11/23/20 14:15 AMB (Rec: 11/23/20 14:28 AMB [id number]) Current Condition History of Current Condition Onset Date years Current Complaints fall history, Parkinsons History of Current Condition Crystal returns to physical therapy to continue to reduce her fall risk. She reports a bad fall going into the shower fell in October and hit her head. Multiple other small falls. She does report that she now uses the walker in the house. Also has noticed reaching for things that are out of reach causes falls. Lives in a two story house with her . Has a walk in shower without grab bars. L shoulder pain with stretching- did have clavicle fracture that she reports healed poory- sleeping on the shoulder is challenging. Difficult to get up from the floor- does have knee pain with kneeling. No longer doing the laundry- takes it to a laundromat. No longer wearing her glasses, no longer cooks. Doing BIG exercises, reads. My doesn't let me do anything any more. Prior Treatments and Tests BIG therapy recently have continued on with exercises Treatment Goals Patient/Caregiver Goals I'd like how to use my walker better, going in and out of doorways, getting in and out of the car. Prior Functional Status Baseline Function- ADL's Modified Independent Baseline Function- Mobility Modified Independent Current Functional Impairments (Reported) Functional Limitations- ADL's No longer does laundry, no longer cooks, falls with ADLS like bathing, dressing Personal Factors Other Personal Factors That May Effect Long history of falls, vision Therapy/Recovery issues, recall issues PT-OP-C Subjective Start: 11/23/20 13:39 Freq: Status: Active Protocol: Document 12/06/20 11:00 AMB (Rec: 12/06/20 11:36 AMB [id number]) OP-PT Subjective Patient Comments Patient Comments Pt was in the ED since eval and broke C1 transverse process. She reports she fell off the bed and hit her neck against the walker. She needed a staple on her scalp. She did need assistance remembering the fall. She does report near falls since that incident. PT-OP-E Functional Tests Start: 11/23/20 13:39 Freq: Status: Active Protocol: Document 11/23/20 14:15 AMB (Rec: 11/23/20 15:46 AMB [email or web address]) Functional Tests 10 Meter Walk Test Distance 13 seconds Device Used 4WW Five Times Sit to Stand Test Score 31 seconds Timed Up and Go (TUG) Score 37 seconds Comments 4WW TUG Impairment Rating 100% Impaired (Score 20) PT-OP-G Mobility & Gait Start: 11/23/20 13:39 Freq: Status: Active Protocol: Document 11/23/20 14:15 AMB (Rec: 11/23/20 15:46 AMB [email or web address]) OP Mobility Evaluation Transfers Sit to Stand Poor habits--pt tends to pull on 4WW, stop before the chair and then walk a few steps from walker to chair-- all despite extensive prior training in correct usage. OP Gait Assessment Assistive Devices Assistive Device 4 Wheeled Walker Gait Deviations General Gait Pattern Decreased Stride Length, Decreased Feet Clearance, Festinating,Lateral Trunk Lean ,Narrow Based Gait Stair Climbing Evaluation Evaluation Level of Assist On Stairs Standby Assistance Devices Stair Climbing Assistive Devices Left Railing Technique/Endurance Stair Climbing Direction Ascend and Descend Stair Climbing Technique Step to Step Number of Steps Climbed 8 PT-OP-J Posture/Palpation/Skin Start: 11/23/20 13:39 Freq: Status: Active Protocol: Document 11/23/20 14:15 AMB (Rec: 11/23/20 15:46 AMB [email or web address]) Posture Evaluation Comments Posture Comments scoliosis, tends to have severe cervical flexion PT-OP-M Strength Start: 11/23/20 13:39 Freq: Status: Active Protocol: Document 11/23/20 14:15 AMB (Rec: 11/23/20 15:46 AMB [email or web address]) Hip Strength Hip Manual Muscle Testing Right Flexion (L2) 4+ Good+ Extension (S1) 4- Good- Abduction 4 Good Left Flexion (L2) 4+ Good+ Extension (S1) 4- Good- Abduction 4 Good Knee Strength Knee Manual Muscle Testing Right Flexion (S2) 4- Good- Extension (L3) 4+ Good+ Left Flexion (S2) 4- Good- Extension (L3) 4+ Good+ PT-OP-Q Treatments Start: 11/23/20 13:39 Freq: Status: Active Protocol: Document 12/06/20 11:00 AMB (Rec: 12/06/20 16:01 AMB [id number]) Gait Training Gait Activity 1 Description sit to stand then walk around cones Comments with 4WW- Crystal needs repeat cues for sequencing safely, safely using 4WW 2 Description 4WW Distance/Duration 250' Comments cues to attend to visual cues- pt does tend to run into things Neuro Re-Education Treatment Balance Activities 1 Details seated balance- reaching laterally for cones Comments Most difficulty putting cones on stack- put them to the side , difficulty with shifting weight. PT-OP-T Assessment and Plan Start: 11/23/20 13:39 Freq: Status: Active Protocol: Document 12/06/20 11:00 AMB (Rec: 12/06/20 15:58 AMB [id number]) Physical Therapy Assessment Assessment Summary Assessment Pt denied neck pain s/p fall and ER visit, see subjective. Does not need surgery/to wear brace. She continues to need reminders to look to avoid running into objects, and showed poor vision with difficulty reaching and stacking cones. Pt continues to be a high falls risk, with motor planning and visuospatial challenges that make PT training challenging. Physical Therapy Plan Next Visit Focus/Plan Next Note Type Treatment Note Next Visit Plan Would pt benefit from caregiver/be interested- especially with showering as she states that her lets her do this independently and she has had previous falls in the shower.
--- NOTE | 2020-12-12 13:45 | PT.OTN ---
Current Diagnoses Parkinson's disease (12/12/20) Other abnormalities of gait and mobility (12/12/20) History of falling (12/12/20) Physical Therapy Treatment Note PT-OP-A Visit Information Start: 11/23/20 13:39 Freq: Status: Active Protocol: Document 12/12/20 13:05 SP (Rec: 12/12/20 16:15 SP [id number]) Out-Patient Physical Therapy Visit Information Visit Information Visit Type Treatment Note Visit Start Time 13:05 Visit Stop Time 13:45 Total Visit Minutes 40 Visit Number 3 Number of SEWING MACHINE REPAIRER HELPER Visits 1 PT-OP-B Current Condition Start: 11/23/20 13:39 Freq: Status: Active Protocol: Document 11/23/20 14:15 AMB (Rec: 11/23/20 14:28 AMB [id number]) Current Condition History of Current Condition Onset Date years Current Complaints fall history, Parkinsons History of Current Condition Crystal returns to physical therapy to continue to reduce her fall risk. She reports a bad fall going into the shower fell in October and hit her head. Multiple other small falls. She does report that she now uses the walker in the house. Also has noticed reaching for things that are out of reach causes falls. Lives in a two story house with her . Has a walk in shower without grab bars. L shoulder pain with stretching- did have clavicle fracture that she reports healed poory- sleeping on the shoulder is challenging. Difficult to get up from the floor- does have knee pain with kneeling. No longer doing the laundry- takes it to a laundromat. No longer wearing her glasses, no longer cooks. Doing BIG exercises, reads. My doesn't let me do anything any more. Prior Treatments and Tests BIG therapy recently have continued on with exercises Treatment Goals Patient/Caregiver Goals I'd like how to use my walker better, going in and out of doorways, getting in and out of the car. Prior Functional Status Baseline Function- ADL's Modified Independent Baseline Function- Mobility Modified Independent Current Functional Impairments (Reported) Functional Limitations- ADL's No longer does laundry, no longer cooks, falls with ADLS like bathing, dressing Personal Factors Other Personal Factors That May Effect Long history of falls, vision Therapy/Recovery issues, recall issues PT-OP-C Subjective Start: 11/23/20 13:39 Freq: Status: Active Protocol: Document 12/12/20 13:05 SP (Rec: 12/12/20 16:15 SP [id number]) OP-PT Subjective Patient Comments Patient Comments Pt stated felt very good after last tx. Pt stated did have a fall before going into the shower taking stool from one location to another, ususally is not in bathroom because likes her privacy. Pt stated tends to look down when walking because her vision is most clear in front of her. PT-OP-E Functional Tests Start: 11/23/20 13:39 Freq: Status: Active Protocol: Document 11/23/20 14:15 AMB (Rec: 11/23/20 15:46 AMB [email or web address]) Functional Tests 10 Meter Walk Test Distance 13 seconds Device Used 4WW Five Times Sit to Stand Test Score 31 seconds Timed Up and Go (TUG) Score 37 seconds Comments 4WW TUG Impairment Rating 100% Impaired (Score 20) PT-OP-G Mobility & Gait Start: 11/23/20 13:39 Freq: Status: Active Protocol: Document 11/23/20 14:15 AMB (Rec: 11/23/20 15:46 AMB [email or web address]) OP Mobility Evaluation Transfers Sit to Stand Poor habits--pt tends to pull on 4WW, stop before the chair and then walk a few steps from walker to chair-- all despite extensive prior training in correct usage. OP Gait Assessment Assistive Devices Assistive Device 4 Wheeled Walker Gait Deviations General Gait Pattern Decreased Stride Length, Decreased Feet Clearance, Festinating,Lateral Trunk Lean ,Narrow Based Gait Stair Climbing Evaluation Evaluation Level of Assist On Stairs Standby Assistance Devices Stair Climbing Assistive Devices Left Railing Technique/Endurance Stair Climbing Direction Ascend and Descend Stair Climbing Technique Step to Step Number of Steps Climbed 8 PT-OP-J Posture/Palpation/Skin Start: 11/23/20 13:39 Freq: Status: Active Protocol: Document 11/23/20 14:15 AMB (Rec: 11/23/20 15:46 AMB [email or web address]) Posture Evaluation Comments Posture Comments scoliosis, tends to have severe cervical flexion PT-OP-M Strength Start: 11/23/20 13:39 Freq: Status: Active Protocol: Document 11/23/20 14:15 AMB (Rec: 11/23/20 15:46 AMB [email or web address]) Hip Strength Hip Manual Muscle Testing Right Flexion (L2) 4+ Good+ Extension (S1) 4- Good- Abduction 4 Good Left Flexion (L2) 4+ Good+ Extension (S1) 4- Good- Abduction 4 Good Knee Strength Knee Manual Muscle Testing Right Flexion (S2) 4- Good- Extension (L3) 4+ Good+ Left Flexion (S2) 4- Good- Extension (L3) 4+ Good+ PT-OP-Q Treatments Start: 11/23/20 13:39 Freq: Status: Active Protocol: Document 12/12/20 13:05 SP (Rec: 12/12/20 16:15 SP [id number]) Therapeutic Activity Therapeutic Activity transfer trng w/ 4WW Comments education for brake mgt pre stand, sit and stationary stance activities reaching outside SHU for objects in standing for stability. 1 Name sit<>stands Reps/Minutes 2x5 reps Comments cues scoot forward, feet under LE, hip hinge forward knees apart- push from chair arms at this time, redirected from pulling on 4WW. Improved COG over SHU Gait Training Gait Activity 1 Description sit to stand then walk around cones and gym equipment Comments with 4WW- Crystal needs repeat cues for sequencing safely brake mgt after cues, safely using 4WW obstacle mgt focuses one side. 2 Description 4WW Distance/Duration 340 ft (2 laps around gym/ hallway) Treatment Focus safety path finding w/ upright posture Comments cues to attend to visual cues of upright posture scanning upcoming obstacles/ turns- pt does tend to look down toward feet thus run into things Neuro Re-Education Treatment Balance Activities 2 Details standing balance- reaching laterally and cross body Surface firm Equipment 4WW front for assist if needed Reps/Duration 4x8 cones Comments difficulty stacking cones due to limited vision clarity in depth perception, stable reaching outside SHU, no LOB. 1 Details seated balance- reaching laterally for cones Comments Most difficulty putting cones on stack- put them to the side , difficulty with shifting weight. PT-OP-T Assessment and Plan Start: 11/23/20 13:39 Freq: Status: Active Protocol: Document 12/12/20 13:05 SP (Rec: 12/12/20 16:15 SP [id number]) Physical Therapy Assessment Goals Three Impairment Sit to stand Short Term Goal (STG) Crystal will improve her 5x sit to stand to 20 seconds or less . STG Duration 4 weeks Foam Rubber Fabricator Goal (LTG) Crystal will move from sit to stand from a low chair without UE support with good balance. LTG Duration 8 weeks Two Impairment Gait Short Term Goal (STG) Crystal will walk with her 4WW for 6 minutes over smooth terrain without loss of balance or running into obstacles. STG Duration 4 weeks One Impairment Fall risk Short Term Goal (STG) Crystal will decrease her timed up and go score to 30 seconds or less to show decreased risk of falling. STG Duration 4 weeks [facility] Goal (LTG) Crystal will use her 4WW appropriately when moving from walking to sitting ( remembering to reach for chair , not leaving 4WW and walking to chair, etc.). LTG Duration 8 weeks Assessment Summary Assessment Pt requires multiple cues for follow through directions of planning reaching, safety brake mgt during transfer, directions loop walking around clinic with upright posture needs to look out in front for obstacle mgt, tends to look near feet. SEWING MACHINE REPAIRER HELPER discussed with patient if could call spouse to discuss doing coming in to PT to work with therapists on safety cues/ training including transfers, gait with obstacle mgt and set up bathroom for use and potentially someone safety support durign showers, requires multiple cuing and support needed for safety during tx. Physical Therapy Plan Frequency and Duration Frequency of Treatment 1x/Week Duration of Treatment 12 weeks Plan of Care Start Date 11/23/20 Plan of Care End Date 02/15/21 Therapeutic Interventions Therapeutic Interventions Balance Training,Gait Training ,Home Exercise Program,Manual Therapy,Neuromuscular Re- education,Self-Care/Home Management,Therapeutic Activities,Therapeutic Exercises Next Visit Focus/Plan Next Note Type Treatment Note Next Visit Plan Pt open to calling spouse to attend PT for safety support training, especially with showering as she states that her lets her do this independently and she has had previous falls in the shower.
--- NOTE | 2020-12-21 11:34 | PT.OTN ---
Current Diagnoses Parkinson's disease (12/21/20) Other abnormalities of gait and mobility (12/21/20) History of falling (12/21/20) Physical Therapy Treatment Note PT-OP-A Visit Information Start: 11/23/20 13:39 Freq: Status: Active Protocol: Document 12/21/20 10:30 AMB (Rec: 12/21/20 10:44 AMB [id number]) Out-Patient Physical Therapy Visit Information Visit Information Visit Type Treatment Note Visit Start Time 10:30 Visit Stop Time 11:15 Total Visit Minutes 45 Visit Number 4 Number of ELEVATOR EXAMINER AND ADJUSTER Visits 0 PT-OP-B Current Condition Start: 11/23/20 13:39 Freq: Status: Active Protocol: Document 11/23/20 14:15 AMB (Rec: 11/23/20 14:28 AMB [id number]) Current Condition History of Current Condition Onset Date years Current Complaints fall history, Parkinsons History of Current Condition Crystal returns to physical therapy to continue to reduce her fall risk. She reports a bad fall going into the shower fell in October and hit her head. Multiple other small falls. She does report that she now uses the walker in the house. Also has noticed reaching for things that are out of reach causes falls. Lives in a two story house with her . Has a walk in shower without grab bars. L shoulder pain with stretching- did have clavicle fracture that she reports healed poory- sleeping on the shoulder is challenging. Difficult to get up from the floor- does have knee pain with kneeling. No longer doing the laundry- takes it to a laundromat. No longer wearing her glasses, no longer cooks. Doing BIG exercises, reads. My doesn't let me do anything any more. Prior Treatments and Tests BIG therapy recently have continued on with exercises Treatment Goals Patient/Caregiver Goals I'd like how to use my walker better, going in and out of doorways, getting in and out of the car. Prior Functional Status Baseline Function- ADL's Modified Independent Baseline Function- Mobility Modified Independent Current Functional Impairments (Reported) Functional Limitations- ADL's No longer does laundry, no longer cooks, falls with ADLS like bathing, dressing Personal Factors Other Personal Factors That May Effect Long history of falls, vision Therapy/Recovery issues, recall issues PT-OP-C Subjective Start: 11/23/20 13:39 Freq: Status: Active Protocol: Document 12/21/20 10:30 AMB (Rec: 12/21/20 10:44 AMB [id number]) OP-PT Subjective Patient Comments Patient Comments Pt reports walked on the patio with her and that went well but did need his assistance to look up and to navigate. PT-OP-E Functional Tests Start: 11/23/20 13:39 Freq: Status: Active Protocol: Document 11/23/20 14:15 AMB (Rec: 11/23/20 15:46 AMB [email or web address]) Functional Tests 10 Meter Walk Test Distance 13 seconds Device Used 4WW Five Times Sit to Stand Test Score 31 seconds Timed Up and Go (TUG) Score 37 seconds Comments 4WW TUG Impairment Rating 100% Impaired (Score 20) PT-OP-G Mobility & Gait Start: 11/23/20 13:39 Freq: Status: Active Protocol: Document 11/23/20 14:15 AMB (Rec: 11/23/20 15:46 AMB [email or web address]) OP Mobility Evaluation Transfers Sit to Stand Poor habits--pt tends to pull on 4WW, stop before the chair and then walk a few steps from walker to chair-- all despite extensive prior training in correct usage. OP Gait Assessment Assistive Devices Assistive Device 4 Wheeled Walker Gait Deviations General Gait Pattern Decreased Stride Length, Decreased Feet Clearance, Festinating,Lateral Trunk Lean ,Narrow Based Gait Stair Climbing Evaluation Evaluation Level of Assist On Stairs Standby Assistance Devices Stair Climbing Assistive Devices Left Railing Technique/Endurance Stair Climbing Direction Ascend and Descend Stair Climbing Technique Step to Step Number of Steps Climbed 8 PT-OP-J Posture/Palpation/Skin Start: 11/23/20 13:39 Freq: Status: Active Protocol: Document 11/23/20 14:15 AMB (Rec: 11/23/20 15:46 AMB [email or web address]) Posture Evaluation Comments Posture Comments scoliosis, tends to have severe cervical flexion PT-OP-M Strength Start: 11/23/20 13:39 Freq: Status: Active Protocol: Document 11/23/20 14:15 AMB (Rec: 11/23/20 15:46 AMB [email or web address]) Hip Strength Hip Manual Muscle Testing Right Flexion (L2) 4+ Good+ Extension (S1) 4- Good- Abduction 4 Good Left Flexion (L2) 4+ Good+ Extension (S1) 4- Good- Abduction 4 Good Knee Strength Knee Manual Muscle Testing Right Flexion (S2) 4- Good- Extension (L3) 4+ Good+ Left Flexion (S2) 4- Good- Extension (L3) 4+ Good+ PT-OP-Q Treatments Start: 11/23/20 13:39 Freq: Status: Active Protocol: Document 12/21/20 11:25 AMB (Rec: 12/21/20 11:34 AMB [email or web address]) Therapeutic Activity Therapeutic Activity 1 Name sit<>stands Reps/Minutes 2x5 reps Comments cues scoot forward, feet under LE, hip hinge forward knees apart- push from chair arms at this time, redirected from pulling on 4WW. Improved COG over SHU Gait Training Gait Activity 2 Description outdoor walking Distance/Duration 200' Treatment Focus safety path finding w/ upright posture Comments cues to attend to visual cues of upright posture scanning upcoming obstacles/ turns- pt does tend to look down toward feet thus run into things- needed approx 5-6 cues to avoid running into objects- walking around parking lot but avoided uneven terrain/curbs for now PT-OP-T Assessment and Plan Start: 11/23/20 13:39 Freq: Status: Active Protocol: Document 12/21/20 11:25 AMB (Rec: 12/21/20 11:34 AMB [email or web address]) Physical Therapy Assessment Goals Three Impairment Sit to stand Short Term Goal (STG) Crystal will improve her 5x sit to stand to 20 seconds or less . STG Duration 4 weeks Ecological Economist Goal (LTG) Crystal will move from sit to stand from a low chair without UE support with good balance. LTG Duration 8 weeks Two Impairment Gait Short Term Goal (STG) Crystal will walk with her 4WW for 6 minutes over smooth terrain without loss of balance or running into obstacles. STG Duration 4 weeks One Impairment Fall risk Short Term Goal (STG) Crystal will decrease her timed up and go score to 30 seconds or less to show decreased risk of falling. STG Duration 4 weeks [facility] Goal (LTG) Crystal will use her 4WW appropriately when moving from walking to sitting ( remembering to reach for chair , not leaving 4WW and walking to chair, etc.). LTG Duration 8 weeks Assessment Summary Assessment Will follow up with spouse to educate in appropriate cueing for pt. Pt continues to need fairly constant cueing for safety and to be aware of her surroundings while walking. Physical Therapy Plan Next Visit Focus/Plan Next Note Type Treatment Note Next Visit Plan Discuss education of spouse
--- NOTE | 2020-12-28 16:13 | PT.OTN ---
Current Diagnoses Parkinson's disease (12/28/20) Other abnormalities of gait and mobility (12/28/20) History of falling (12/28/20) Physical Therapy Treatment Note PT-OP-A Visit Information Start: 11/23/20 13:39 Freq: Status: Active Protocol: Document 12/28/20 12:45 AMB (Rec: 12/28/20 12:55 AMB [id number]) Out-Patient Physical Therapy Visit Information Visit Information Visit Type Treatment Note Visit Start Time 12:45 Visit Stop Time 13:30 Total Visit Minutes 45 Visit Number 5 PT-OP-B Current Condition Start: 11/23/20 13:39 Freq: Status: Active Protocol: Document 11/23/20 14:15 AMB (Rec: 11/23/20 14:28 AMB [id number]) Current Condition History of Current Condition Onset Date years Current Complaints fall history, Parkinsons History of Current Condition Crystal returns to physical therapy to continue to reduce her fall risk. She reports a bad fall going into the shower fell in October and hit her head. Multiple other small falls. She does report that she now uses the walker in the house. Also has noticed reaching for things that are out of reach causes falls. Lives in a two story house with her . Has a walk in shower without grab bars. L shoulder pain with stretching- did have clavicle fracture that she reports healed poory- sleeping on the shoulder is challenging. Difficult to get up from the floor- does have knee pain with kneeling. No longer doing the laundry- takes it to a laundromat. No longer wearing her glasses, no longer cooks. Doing BIG exercises, reads. My doesn't let me do anything any more. Prior Treatments and Tests BIG therapy recently have continued on with exercises Treatment Goals Patient/Caregiver Goals I'd like how to use my walker better, going in and out of doorways, getting in and out of the car. Prior Functional Status Baseline Function- ADL's Modified Independent Baseline Function- Mobility Modified Independent Current Functional Impairments (Reported) Functional Limitations- ADL's No longer does laundry, no longer cooks, falls with ADLS like bathing, dressing Personal Factors Other Personal Factors That May Effect Long history of falls, vision Therapy/Recovery issues, recall issues PT-OP-C Subjective Start: 11/23/20 13:39 Freq: Status: Active Protocol: Document 12/28/20 12:45 AMB (Rec: 12/28/20 12:55 AMB [id number]) OP-PT Subjective Patient Comments Patient Comments Pt reports no falls, but did have a near fall yesterday when getting off the stool at dinner time while holding a drinking glass. PT-OP-E Functional Tests Start: 11/23/20 13:39 Freq: Status: Active Protocol: Document 11/23/20 14:15 AMB (Rec: 11/23/20 15:46 AMB [email or web address]) Functional Tests 10 Meter Walk Test Distance 13 seconds Device Used 4WW Five Times Sit to Stand Test Score 31 seconds Timed Up and Go (TUG) Score 37 seconds Comments 4WW TUG Impairment Rating 100% Impaired (Score 20) PT-OP-G Mobility & Gait Start: 11/23/20 13:39 Freq: Status: Active Protocol: Document 11/23/20 14:15 AMB (Rec: 11/23/20 15:46 AMB [email or web address]) OP Mobility Evaluation Transfers Sit to Stand Poor habits--pt tends to pull on 4WW, stop before the chair and then walk a few steps from walker to chair-- all despite extensive prior training in correct usage. OP Gait Assessment Assistive Devices Assistive Device 4 Wheeled Walker Gait Deviations General Gait Pattern Decreased Stride Length, Decreased Feet Clearance, Festinating,Lateral Trunk Lean ,Narrow Based Gait Stair Climbing Evaluation Evaluation Level of Assist On Stairs Standby Assistance Devices Stair Climbing Assistive Devices Left Railing Technique/Endurance Stair Climbing Direction Ascend and Descend Stair Climbing Technique Step to Step Number of Steps Climbed 8 PT-OP-J Posture/Palpation/Skin Start: 11/23/20 13:39 Freq: Status: Active Protocol: Document 11/23/20 14:15 AMB (Rec: 11/23/20 15:46 AMB [email or web address]) Posture Evaluation Comments Posture Comments scoliosis, tends to have severe cervical flexion PT-OP-M Strength Start: 11/23/20 13:39 Freq: Status: Active Protocol: Document 11/23/20 14:15 AMB (Rec: 11/23/20 15:46 AMB [email or web address]) Hip Strength Hip Manual Muscle Testing Right Flexion (L2) 4+ Good+ Extension (S1) 4- Good- Abduction 4 Good Left Flexion (L2) 4+ Good+ Extension (S1) 4- Good- Abduction 4 Good Knee Strength Knee Manual Muscle Testing Right Flexion (S2) 4- Good- Extension (L3) 4+ Good+ Left Flexion (S2) 4- Good- Extension (L3) 4+ Good+ PT-OP-Q Treatments Start: 11/23/20 13:39 Freq: Status: Active Protocol: Document 12/28/20 13:32 AMB (Rec: 12/28/20 13:33 AMB [id number]) Therapeutic Activity Therapeutic Activity 1 Name sit<>stands Reps/Minutes 2x5 reps Comments cues scoot forward, feet under LE, hip hinge forward knees apart- push from chair arms at this time, redirected from pulling on 4WW. Improved COG over SHU- but without constant cues pt has difficulty doing this. Gait Training Gait Activity 3 Description indoor walking-navigating clinic Comments Crystal needed repeat cues to not run into objects/people in the clinic. Knows cognitively to look up but cannot do so in practice. PT-OP-T Assessment and Plan Start: 11/23/20 13:39 Freq: Status: Active Protocol: Document 12/28/20 12:45 AMB (Rec: 12/28/20 12:55 AMB [id number]) Physical Therapy Assessment Goals Three Impairment Sit to stand Short Term Goal (STG) Crystal will improve her 5x sit to stand to 20 seconds or less . STG Duration 4 weeks Halfway Goal (LTG) Crystal will move from sit to stand from a low chair without UE support with good balance. LTG Duration 8 weeks Two Impairment Gait Short Term Goal (STG) Crystal will walk with her 4WW for 6 minutes over smooth terrain without loss of balance or running into obstacles. STG Duration 4 weeks One Impairment Fall risk Short Term Goal (STG) Crystal will decrease her timed up and go score to 30 seconds or less to show decreased risk of falling. STG Duration 4 weeks District Attorney Goal (LTG) Crystal will use her 4WW appropriately when moving from walking to sitting ( remembering to reach for chair , not leaving 4WW and walking to chair, etc.). LTG Duration 8 weeks Assessment Summary Assessment Crystal continues to run into objects in the clinic despite extensive verbal cues to scan her environment. She continues to have difficult with sit to stand and can verbally describe that she is supposed to lean forward and push from her chair, but then about half the time does not do this when she is moving from sit to stand. Physical Therapy Plan Next Visit Focus/Plan Next Note Type Treatment Note Next Visit Plan Discuss education of spouse
--- NOTE | 2021-01-05 15:27 | PT.OTN ---
Current Diagnoses Parkinson's disease (01/05/21) Other abnormalities of gait and mobility (01/05/21) History of falling (01/05/21) Physical Therapy Treatment Note PT-OP-A Visit Information Start: 11/23/20 13:39 Freq: Status: Active Protocol: Document 01/05/21 12:45 AMB (Rec: 01/05/21 14:15 AMB [email or web address]) Out-Patient Physical Therapy Visit Information Visit Information Visit Type Treatment Note Visit Start Time 12:45 Visit Stop Time 13:30 Total Visit Minutes 45 Visit Number 6 PT-OP-B Current Condition Start: 11/23/20 13:39 Freq: Status: Active Protocol: Document 11/23/20 14:15 AMB (Rec: 11/23/20 14:28 AMB [id number]) Current Condition History of Current Condition Onset Date years Current Complaints fall history, Parkinsons History of Current Condition Crystal returns to physical therapy to continue to reduce her fall risk. She reports a bad fall going into the shower fell in October and hit her head. Multiple other small falls. She does report that she now uses the walker in the house. Also has noticed reaching for things that are out of reach causes falls. Lives in a two story house with her . Has a walk in shower without grab bars. L shoulder pain with stretching- did have clavicle fracture that she reports healed poory- sleeping on the shoulder is challenging. Difficult to get up from the floor- does have knee pain with kneeling. No longer doing the laundry- takes it to a laundromat. No longer wearing her glasses, no longer cooks. Doing BIG exercises, reads. My doesn't let me do anything any more. Prior Treatments and Tests BIG therapy recently have continued on with exercises Treatment Goals Patient/Caregiver Goals I'd like how to use my walker better, going in and out of doorways, getting in and out of the car. Prior Functional Status Baseline Function- ADL's Modified Independent Baseline Function- Mobility Modified Independent Current Functional Impairments (Reported) Functional Limitations- ADL's No longer does laundry, no longer cooks, falls with ADLS like bathing, dressing Personal Factors Other Personal Factors That May Effect Long history of falls, vision Therapy/Recovery issues, recall issues PT-OP-C Subjective Start: 11/23/20 13:39 Freq: Status: Active Protocol: Document 01/05/21 12:45 AMB (Rec: 01/05/21 15:27 AMB [email or web address]) OP-PT Subjective Patient Comments Patient Comments Pt attends with Wilber per PT request. PT-OP-E Functional Tests Start: 11/23/20 13:39 Freq: Status: Active Protocol: Document 11/23/20 14:15 AMB (Rec: 11/23/20 15:46 AMB [email or web address]) Functional Tests 10 Meter Walk Test Distance 13 seconds Device Used 4WW Five Times Sit to Stand Test Score 31 seconds Timed Up and Go (TUG) Score 37 seconds Comments 4WW TUG Impairment Rating 100% Impaired (Score 20) PT-OP-G Mobility & Gait Start: 11/23/20 13:39 Freq: Status: Active Protocol: Document 11/23/20 14:15 AMB (Rec: 11/23/20 15:46 AMB [email or web address]) OP Mobility Evaluation Transfers Sit to Stand Poor habits--pt tends to pull on 4WW, stop before the chair and then walk a few steps from walker to chair-- all despite extensive prior training in correct usage. OP Gait Assessment Assistive Devices Assistive Device 4 Wheeled Walker Gait Deviations General Gait Pattern Decreased Stride Length, Decreased Feet Clearance, Festinating,Lateral Trunk Lean ,Narrow Based Gait Stair Climbing Evaluation Evaluation Level of Assist On Stairs Standby Assistance Devices Stair Climbing Assistive Devices Left Railing Technique/Endurance Stair Climbing Direction Ascend and Descend Stair Climbing Technique Step to Step Number of Steps Climbed 8 PT-OP-J Posture/Palpation/Skin Start: 11/23/20 13:39 Freq: Status: Active Protocol: Document 11/23/20 14:15 AMB (Rec: 11/23/20 15:46 AMB [email or web address]) Posture Evaluation Comments Posture Comments scoliosis, tends to have severe cervical flexion PT-OP-M Strength Start: 11/23/20 13:39 Freq: Status: Active Protocol: Document 11/23/20 14:15 AMB (Rec: 11/23/20 15:46 AMB [email or web address]) Hip Strength Hip Manual Muscle Testing Right Flexion (L2) 4+ Good+ Extension (S1) 4- Good- Abduction 4 Good Left Flexion (L2) 4+ Good+ Extension (S1) 4- Good- Abduction 4 Good Knee Strength Knee Manual Muscle Testing Right Flexion (S2) 4- Good- Extension (L3) 4+ Good+ Left Flexion (S2) 4- Good- Extension (L3) 4+ Good+ PT-OP-Q Treatments Start: 11/23/20 13:39 Freq: Status: Active Protocol: Document 01/05/21 12:45 AMB (Rec: 01/05/21 15:27 AMB [email or web address]) Self-Care/Home Management Treatment Education Caregiver Education Encouraged Wilber that Crystal is not doing things that she shouldn't on purpose but it is the disease process and if he could possibly more patient with her that would be very helpful. Also encouraged to consider caregivers to decrease his stress with feeling like he has to watch her at all times. PT-OP-T Assessment and Plan Start: 11/23/20 13:39 Freq: Status: Active Protocol: Document 01/05/21 12:45 AMB (Rec: 01/05/21 15:27 AMB [email or web address]) Physical Therapy Assessment Assessment Summary Assessment Discussed care with Crystal and Wilber extensively and was blunt that the number of falls Crystal has had is really extremely concerning and that it is too much work for Wilber to watch her 28/01. Encouraged them to get at least a physics department chair caregiver, consider bedside commode to reduce chance of falling, but agree with Wilber that it is hard for her to remember all of her fall reduction strategies so she will very likely unfortunately continue to fall. Physical Therapy Plan Next Visit Focus/Plan Next Note Type Treatment Note Next Visit Plan Follow up with pt in regards to last appointment with her
--- NOTE | 2021-01-11 16:04 | PT.OTN ---
Current Diagnoses Parkinson's disease (01/11/21) Other abnormalities of gait and mobility (01/11/21) History of falling (01/11/21) Physical Therapy Treatment Note PT-OP-A Visit Information Start: 11/23/20 13:39 Freq: Status: Active Protocol: Document 01/11/21 14:15 AMB (Rec: 01/11/21 16:04 AMB [email or web address]) Out-Patient Physical Therapy Visit Information Visit Information Visit Type Treatment Note Visit Start Time 14:15 Visit Stop Time 15:00 Total Visit Minutes 45 Visit Number 7 PT-OP-B Current Condition Start: 11/23/20 13:39 Freq: Status: Active Protocol: Document 11/23/20 14:15 AMB (Rec: 11/23/20 14:28 AMB [id number]) Current Condition History of Current Condition Onset Date years Current Complaints fall history, Parkinsons History of Current Condition Crystal returns to physical therapy to continue to reduce her fall risk. She reports a bad fall going into the shower fell in October and hit her head. Multiple other small falls. She does report that she now uses the walker in the house. Also has noticed reaching for things that are out of reach causes falls. Lives in a two story house with her . Has a walk in shower without grab bars. L shoulder pain with stretching- did have clavicle fracture that she reports healed poory- sleeping on the shoulder is challenging. Difficult to get up from the floor- does have knee pain with kneeling. No longer doing the laundry- takes it to a laundromat. No longer wearing her glasses, no longer cooks. Doing BIG exercises, reads. My doesn't let me do anything any more. Prior Treatments and Tests BIG therapy recently have continued on with exercises Treatment Goals Patient/Caregiver Goals I'd like how to use my walker better, going in and out of doorways, getting in and out of the car. Prior Functional Status Baseline Function- ADL's Modified Independent Baseline Function- Mobility Modified Independent Current Functional Impairments (Reported) Functional Limitations- ADL's No longer does laundry, no longer cooks, falls with ADLS like bathing, dressing Personal Factors Other Personal Factors That May Effect Long history of falls, vision Therapy/Recovery issues, recall issues PT-OP-C Subjective Start: 11/23/20 13:39 Freq: Status: Active Protocol: Document 01/11/21 14:15 AMB (Rec: 01/11/21 16:04 AMB [email or web address]) OP-PT Subjective Patient Comments Patient Comments Crystal says things are doing well, better since talking with Wilber. PT-OP-E Functional Tests Start: 11/23/20 13:39 Freq: Status: Active Protocol: Document 11/23/20 14:15 AMB (Rec: 11/23/20 15:46 AMB [email or web address]) Functional Tests 10 Meter Walk Test Distance 13 seconds Device Used 4WW Five Times Sit to Stand Test Score 31 seconds Timed Up and Go (TUG) Score 37 seconds Comments 4WW TUG Impairment Rating 100% Impaired (Score 20) PT-OP-G Mobility & Gait Start: 11/23/20 13:39 Freq: Status: Active Protocol: Document 11/23/20 14:15 AMB (Rec: 11/23/20 15:46 AMB [email or web address]) OP Mobility Evaluation Transfers Sit to Stand Poor habits--pt tends to pull on 4WW, stop before the chair and then walk a few steps from walker to chair-- all despite extensive prior training in correct usage. OP Gait Assessment Assistive Devices Assistive Device 4 Wheeled Walker Gait Deviations General Gait Pattern Decreased Stride Length, Decreased Feet Clearance, Festinating,Lateral Trunk Lean ,Narrow Based Gait Stair Climbing Evaluation Evaluation Level of Assist On Stairs Standby Assistance Devices Stair Climbing Assistive Devices Left Railing Technique/Endurance Stair Climbing Direction Ascend and Descend Stair Climbing Technique Step to Step Number of Steps Climbed 8 PT-OP-J Posture/Palpation/Skin Start: 11/23/20 13:39 Freq: Status: Active Protocol: Document 11/23/20 14:15 AMB (Rec: 11/23/20 15:46 AMB [email or web address]) Posture Evaluation Comments Posture Comments scoliosis, tends to have severe cervical flexion PT-OP-M Strength Start: 11/23/20 13:39 Freq: Status: Active Protocol: Document 11/23/20 14:15 AMB (Rec: 11/23/20 15:46 AMB [email or web address]) Hip Strength Hip Manual Muscle Testing Right Flexion (L2) 4+ Good+ Extension (S1) 4- Good- Abduction 4 Good Left Flexion (L2) 4+ Good+ Extension (S1) 4- Good- Abduction 4 Good Knee Strength Knee Manual Muscle Testing Right Flexion (S2) 4- Good- Extension (L3) 4+ Good+ Left Flexion (S2) 4- Good- Extension (L3) 4+ Good+ PT-OP-Q Treatments Start: 11/23/20 13:39 Freq: Status: Active Protocol: Document 01/11/21 14:15 AMB (Rec: 01/11/21 16:04 AMB [email or web address]) Therapeutic Activity Therapeutic Activity transfer trng w/ 4WW Comments education for brake mgt pre stand, sit and stationary stance activities reaching outside SHU for objects in standing for stability. 1 Name sit<>stands Reps/Minutes 2x5 reps Comments cues scoot forward, feet under LE, hip hinge forward knees apart- push from chair arms at this time, redirected from pulling on 4WW. Improved COG over SHU- but without constant cues pt has difficulty doing this. Gait Training Gait Activity 3 Description indoor walking-navigating clinic Comments Crystal needed repeat cues to not run into objects/people in the clinic. Knows cognitively to look up but cannot do so in practice. PT-OP-T Assessment and Plan Start: 11/23/20 13:39 Freq: Status: Active Protocol: Document 01/11/21 14:15 AMB (Rec: 01/11/21 16:04 AMB [email or web address]) Physical Therapy Assessment Assessment Summary Assessment Crystal continues to need verbal cues for safety, but feels her is very negative when giving those cues and pt is feeling like he is limiting her from moving, she feels like she can do things still but he isn't letting her. Encouraged Crystal that she continues to need to be mindful of her fall risk as it is quite high and needs to have someone with her at all times really. Physical Therapy Plan Next Visit Focus/Plan Next Note Type Treatment Note Next Visit Plan Continue to follow up on home safety
--- NOTE | 2021-01-18 15:38 | PT.OTN ---
Current Diagnoses Parkinson's disease (01/18/21) Other abnormalities of gait and mobility (01/18/21) History of falling (01/18/21) Physical Therapy Treatment Note PT-OP-A Visit Information Start: 11/23/20 13:39 Freq: Status: Active Protocol: Document 01/18/21 13:30 AMB (Rec: 01/18/21 13:50 AMB [id number]) Out-Patient Physical Therapy Visit Information Visit Information Visit Type Treatment Note Visit Start Time 13:30 Visit Stop Time 14:15 Total Visit Minutes 45 Visit Number 8 PT-OP-B Current Condition Start: 11/23/20 13:39 Freq: Status: Active Protocol: Document 11/23/20 14:15 AMB (Rec: 11/23/20 14:28 AMB [id number]) Current Condition History of Current Condition Onset Date years Current Complaints fall history, Parkinsons History of Current Condition Crystal returns to physical therapy to continue to reduce her fall risk. She reports a bad fall going into the shower fell in October and hit her head. Multiple other small falls. She does report that she now uses the walker in the house. Also has noticed reaching for things that are out of reach causes falls. Lives in a two story house with her . Has a walk in shower without grab bars. L shoulder pain with stretching- did have clavicle fracture that she reports healed poory- sleeping on the shoulder is challenging. Difficult to get up from the floor- does have knee pain with kneeling. No longer doing the laundry- takes it to a laundromat. No longer wearing her glasses, no longer cooks. Doing BIG exercises, reads. My doesn't let me do anything any more. Prior Treatments and Tests BIG therapy recently have continued on with exercises Treatment Goals Patient/Caregiver Goals I'd like how to use my walker better, going in and out of doorways, getting in and out of the car. Prior Functional Status Baseline Function- ADL's Modified Independent Baseline Function- Mobility Modified Independent Current Functional Impairments (Reported) Functional Limitations- ADL's No longer does laundry, no longer cooks, falls with ADLS like bathing, dressing Personal Factors Other Personal Factors That May Effect Long history of falls, vision Therapy/Recovery issues, recall issues PT-OP-C Subjective Start: 11/23/20 13:39 Freq: Status: Active Protocol: Document 01/18/21 13:30 AMB (Rec: 01/18/21 13:50 AMB [id number]) OP-PT Subjective Patient Comments Patient Comments Crystal has had two falls, both walking with the walker and ended up falling backwards. PT-OP-E Functional Tests Start: 11/23/20 13:39 Freq: Status: Active Protocol: Document 11/23/20 14:15 AMB (Rec: 11/23/20 15:46 AMB [email or web address]) Functional Tests 10 Meter Walk Test Distance 13 seconds Device Used 4WW Five Times Sit to Stand Test Score 31 seconds Timed Up and Go (TUG) Score 37 seconds Comments 4WW TUG Impairment Rating 100% Impaired (Score 20) PT-OP-G Mobility & Gait Start: 11/23/20 13:39 Freq: Status: Active Protocol: Document 11/23/20 14:15 AMB (Rec: 11/23/20 15:46 AMB [email or web address]) OP Mobility Evaluation Transfers Sit to Stand Poor habits--pt tends to pull on 4WW, stop before the chair and then walk a few steps from walker to chair-- all despite extensive prior training in correct usage. OP Gait Assessment Assistive Devices Assistive Device 4 Wheeled Walker Gait Deviations General Gait Pattern Decreased Stride Length, Decreased Feet Clearance, Festinating,Lateral Trunk Lean ,Narrow Based Gait Stair Climbing Evaluation Evaluation Level of Assist On Stairs Standby Assistance Devices Stair Climbing Assistive Devices Left Railing Technique/Endurance Stair Climbing Direction Ascend and Descend Stair Climbing Technique Step to Step Number of Steps Climbed 8 PT-OP-J Posture/Palpation/Skin Start: 11/23/20 13:39 Freq: Status: Active Protocol: Document 11/23/20 14:15 AMB (Rec: 11/23/20 15:46 AMB [email or web address]) Posture Evaluation Comments Posture Comments scoliosis, tends to have severe cervical flexion PT-OP-M Strength Start: 11/23/20 13:39 Freq: Status: Active Protocol: Document 11/23/20 14:15 AMB (Rec: 11/23/20 15:46 AMB [email or web address]) Hip Strength Hip Manual Muscle Testing Right Flexion (L2) 4+ Good+ Extension (S1) 4- Good- Abduction 4 Good Left Flexion (L2) 4+ Good+ Extension (S1) 4- Good- Abduction 4 Good Knee Strength Knee Manual Muscle Testing Right Flexion (S2) 4- Good- Extension (L3) 4+ Good+ Left Flexion (S2) 4- Good- Extension (L3) 4+ Good+ PT-OP-Q Treatments Start: 11/23/20 13:39 Freq: Status: Active Protocol: Document 01/18/21 15:30 AMB (Rec: 01/18/21 15:34 AMB [email or web address]) Gait Training Gait Activity 1 Description sit to stand then walk around cones and gym equipment Comments with 4WW- Crystal needs repeat cues for sequencing safely brake mgt after cues, safely using 4WW obstacle mgt focuses one side. Stairs Description 6 stairs Level of Assistance Right railing (ascending) Distance/Duration 6x Comments gym stairs-ascending step-over , descending step-to pattern using single rail 4 Description walking: backing up and turning Comments with 4WW - managing backing up into chair 3 Description indoor walking-navigating clinic Comments Crystal needed repeat cues to not run into objects/people in the clinic. Knows cognitively to look up but cannot do so in practice without heavy cueing. 2 Description outdoor walking Distance/Duration 150 ft Comments on sidewalk only, cues for navigating and posture PT-OP-T Assessment and Plan Start: 11/23/20 13:39 Freq: Status: Active Protocol: Document 01/18/21 13:30 AMB (Rec: 01/18/21 13:50 AMB [id number]) Physical Therapy Assessment Goals Three Impairment Sit to stand Short Term Goal (STG) Crystal will improve her 5x sit to stand to 20 seconds or less . STG Duration 4 weeks Patient Safety Attendant Goal (LTG) Crystal will move from sit to stand from a low chair without UE support with good balance. LTG Duration 8 weeks Two Impairment Gait Short Term Goal (STG) Crystal will walk with her 4WW for 6 minutes over smooth terrain without loss of balance or running into obstacles. STG Duration 4 weeks One Impairment Fall risk Short Term Goal (STG) Crystal will decrease her timed up and go score to 30 seconds or less to show decreased risk of falling. STG Duration 4 weeks Detention Goal (LTG) Crystal will use her 4WW appropriately when moving from walking to sitting ( remembering to reach for chair , not leaving 4WW and walking to chair, etc.). LTG Duration 8 weeks Assessment Summary Assessment Crystal states she has had two falls, but then when talking with at end of session he states she is having about 2 falls a day at home. During therapy she bent down to pick a sticker off her walker despite PT cues to avoid bending and that this was a fall risk activity. Pt is seeing neurologist in 2 weeks and advised pt and to discuss speed of pt 's descent- even two years ago she was not falling nearly as much and was traveling/ boating, just in the time she has known this PT she has had a significant decline that is quite precipitous given her Parkinson's diagnosis. Physical Therapy Plan Next Visit Focus/Plan Next Note Type Treatment Note Next Visit Plan Continue to follow up on home safety
--- NOTE | 2021-01-31 13:07 | PT-OP ANOTE ---
Pt and family member arrived stating saw neurologist yesterday and has a new diagnosis of PSP. Neurologist suggested DC current PT and being assessed for OT and PT for progressive mobility and potential DME needs into the future then can come back to continue PT here at if prefers.
--- NOTE | 2021-01-31 15:31 | PT.OTN ---
Current Diagnoses Parkinson's disease (01/31/21) Other abnormalities of gait and mobility (01/31/21) History of falling (01/31/21) Physical Therapy Treatment Note PT-OP-A Visit Information Start: 11/23/20 13:39 Freq: Status: Active Protocol: Document 01/31/21 13:30 AMB (Rec: 01/31/21 14:09 AMB [id number]) Out-Patient Physical Therapy Visit Information Visit Information Visit Type Progress Note Visit Start Time 13:30 Visit Stop Time 14:15 Total Visit Minutes 45 Visit Number 9 PT-OP-B Current Condition Start: 11/23/20 13:39 Freq: Status: Active Protocol: Document 11/23/20 14:15 AMB (Rec: 11/23/20 14:28 AMB [id number]) Current Condition History of Current Condition Onset Date years Current Complaints fall history, Parkinsons History of Current Condition Crystal returns to physical therapy to continue to reduce her fall risk. She reports a bad fall going into the shower fell in October and hit her head. Multiple other small falls. She does report that she now uses the walker in the house. Also has noticed reaching for things that are out of reach causes falls. Lives in a two story house with her . Has a walk in shower without grab bars. L shoulder pain with stretching- did have clavicle fracture that she reports healed poory- sleeping on the shoulder is challenging. Difficult to get up from the floor- does have knee pain with kneeling. No longer doing the laundry- takes it to a laundromat. No longer wearing her glasses, no longer cooks. Doing BIG exercises, reads. My doesn't let me do anything any more. Prior Treatments and Tests BIG therapy recently have continued on with exercises Treatment Goals Patient/Caregiver Goals I'd like how to use my walker better, going in and out of doorways, getting in and out of the car. Prior Functional Status Baseline Function- ADL's Modified Independent Baseline Function- Mobility Modified Independent Current Functional Impairments (Reported) Functional Limitations- ADL's No longer does laundry, no longer cooks, falls with ADLS like bathing, dressing Personal Factors Other Personal Factors That May Effect Long history of falls, vision Therapy/Recovery issues, recall issues PT-OP-C Subjective Start: 11/23/20 13:39 Freq: Status: Active Protocol: Document 01/31/21 14:30 AMB (Rec: 01/31/21 14:33 AMB [id number]) OP-PT Subjective Patient Comments Patient Comments Pt had a recent diagnosis from neurologist yesterday: Progressive supranuclear palsy . Neurologist wants her to be evaluated for a w/c down in [place] so we will need to discharge before that happens per and then if neurologist wants us to resume they would need a new referral. PT-OP-E Functional Tests Start: 11/23/20 13:39 Freq: Status: Active Protocol: Document 01/31/21 13:30 AMB (Rec: 01/31/21 15:25 AMB [id number]) Functional Tests 6 Minute Walk Test Distance 414 Device Used 4WW Comments cues for navigating Five Times Sit to Stand Test Score 40 Comments needed bilat UE support Timed Up and Go (TUG) Score 57 Comments 4WW TUG Impairment Rating 100% Impaired (Score 20) PT-OP-G Mobility & Gait Start: 11/23/20 13:39 Freq: Status: Active Protocol: Document 11/23/20 14:15 AMB (Rec: 11/23/20 15:46 AMB [email or web address]) OP Mobility Evaluation Transfers Sit to Stand Poor habits--pt tends to pull on 4WW, stop before the chair and then walk a few steps from walker to chair-- all despite extensive prior training in correct usage. OP Gait Assessment Assistive Devices Assistive Device 4 Wheeled Walker Gait Deviations General Gait Pattern Decreased Stride Length, Decreased Feet Clearance, Festinating,Lateral Trunk Lean ,Narrow Based Gait Stair Climbing Evaluation Evaluation Level of Assist On Stairs Standby Assistance Devices Stair Climbing Assistive Devices Left Railing Technique/Endurance Stair Climbing Direction Ascend and Descend Stair Climbing Technique Step to Step Number of Steps Climbed 8 PT-OP-J Posture/Palpation/Skin Start: 11/23/20 13:39 Freq: Status: Active Protocol: Document 11/23/20 14:15 AMB (Rec: 11/23/20 15:46 AMB [email or web address]) Posture Evaluation Comments Posture Comments scoliosis, tends to have severe cervical flexion PT-OP-M Strength Start: 11/23/20 13:39 Freq: Status: Active Protocol: Document 11/23/20 14:15 AMB (Rec: 11/23/20 15:46 AMB [email or web address]) Hip Strength Hip Manual Muscle Testing Right Flexion (L2) 4+ Good+ Extension (S1) 4- Good- Abduction 4 Good Left Flexion (L2) 4+ Good+ Extension (S1) 4- Good- Abduction 4 Good Knee Strength Knee Manual Muscle Testing Right Flexion (S2) 4- Good- Extension (L3) 4+ Good+ Left Flexion (S2) 4- Good- Extension (L3) 4+ Good+ PT-OP-Q Treatments Start: 11/23/20 13:39 Freq: Status: Active Protocol: Document 01/31/21 13:30 AMB (Rec: 01/31/21 15:31 AMB [id number]) Therapeutic Activity Therapeutic Activity 5 Name sit to stand Reps/Minutes 5 Gait Training Gait Activity 1 Description sit to stand then walk around cones and gym equipment Comments with 4WW- Crystal needs repeat cues for sequencing safely brake mgt after cues, safely using 4WW obstacle mgt focuses one side. 3 Description indoor walking-navigating clinic Distance/Duration 414 Comments Crystal needed repeat cues to not run into objects/people in the clinic. Knows cognitively to look up but cannot do so in practice without heavy cueing. PT-OP-T Assessment and Plan Start: 11/23/20 13:39 Freq: Status: Active Protocol: Document 01/31/21 13:30 AMB (Rec: 01/31/21 14:09 AMB [id number]) Physical Therapy Assessment Goals Three Impairment Sit to stand Short Term Goal (STG) Crystal will improve her 5x sit to stand to 20 seconds or less . STG Duration 01/31: 40 seconds Filterer Goal (LTG) Crystal will move from sit to stand from a low chair without UE support with good balance. LTG Duration NOT MET Two Impairment Gait Short Term Goal (STG) Crystal will walk with her 4WW for 6 minutes over smooth terrain without loss of balance or running into obstacles. STG Duration NOT MET One Impairment Fall risk Short Term Goal (STG) Crystal will decrease her timed up and go score to 30 seconds or less to show decreased risk of falling. STG Duration NOT MET Care Home Goal (LTG) Crystal will use her 4WW appropriately when moving from walking to sitting ( remembering to reach for chair , not leaving 4WW and walking to chair, etc.). LTG Duration NOT MET Assessment Summary Assessment Crystal unfortunately has not progressed with her mobility and has in fact deteriorated. Discussed this with patient and . Pt is going to get w/c eval and will call to say when this is. Physical Therapy Plan Frequency and Duration Frequency of Treatment 1x/Week Duration of Treatment 12 weeks Plan of Care Start Date 11/23/20 Plan of Care End Date 02/15/21 Therapeutic Interventions Therapeutic Interventions Balance Training,Gait Training ,Home Exercise Program,Manual Therapy,Neuromuscular Re- education,Self-Care/Home Management,Therapeutic Activities,Therapeutic Exercises Next Visit Focus/Plan Next Note Type Treatment Note Next Visit Plan Depending on upcoming w/c eval may consider d/c
--- NOTE | 2021-02-08 16:11 | PT.OTN ---
Current Diagnoses Parkinson's disease (02/08/21) Other abnormalities of gait and mobility (02/08/21) History of falling (02/08/21) Physical Therapy Treatment Note PT-OP-A Visit Information Start: 11/23/20 13:39 Freq: Status: Active Protocol: Document 02/08/21 11:15 AMB (Rec: 02/08/21 16:10 AMB [email or web address]) Out-Patient Physical Therapy Visit Information Visit Information Visit Type Treatment Note Visit Note 08/17 Visit Start Time 11:15 Visit Stop Time 12:00 Total Visit Minutes 45 Visit Number 10 PT-OP-B Current Condition Start: 11/23/20 13:39 Freq: Status: Active Protocol: Document 11/23/20 14:15 AMB (Rec: 11/23/20 14:28 AMB [id number]) Current Condition History of Current Condition Onset Date years Current Complaints fall history, Parkinsons History of Current Condition Crystal returns to physical therapy to continue to reduce her fall risk. She reports a bad fall going into the shower fell in October and hit her head. Multiple other small falls. She does report that she now uses the walker in the house. Also has noticed reaching for things that are out of reach causes falls. Lives in a two story house with her . Has a walk in shower without grab bars. L shoulder pain with stretching- did have clavicle fracture that she reports healed poory- sleeping on the shoulder is challenging. Difficult to get up from the floor- does have knee pain with kneeling. No longer doing the laundry- takes it to a laundromat. No longer wearing her glasses, no longer cooks. Doing BIG exercises, reads. My doesn't let me do anything any more. Prior Treatments and Tests BIG therapy recently have continued on with exercises Treatment Goals Patient/Caregiver Goals I'd like how to use my walker better, going in and out of doorways, getting in and out of the car. Prior Functional Status Baseline Function- ADL's Modified Independent Baseline Function- Mobility Modified Independent Current Functional Impairments (Reported) Functional Limitations- ADL's No longer does laundry, no longer cooks, falls with ADLS like bathing, dressing Personal Factors Other Personal Factors That May Effect Long history of falls, vision Therapy/Recovery issues, recall issues PT-OP-C Subjective Start: 11/23/20 13:39 Freq: Status: Active Protocol: Document 02/08/21 11:15 AMB (Rec: 02/08/21 16:10 AMB [email or web address]) OP-PT Subjective Patient Comments Patient Comments Wilber states pt hasn't had any falls in the last 2 weeks. She will be seen down in [place] for w/c eval at the beginning of March. Crystal states she is extra stiff today. PT-OP-E Functional Tests Start: 11/23/20 13:39 Freq: Status: Active Protocol: Document 01/31/21 13:30 AMB (Rec: 01/31/21 15:25 AMB [id number]) Functional Tests 6 Minute Walk Test Distance 414 Device Used 4WW Comments cues for navigating Five Times Sit to Stand Test Score 40 Comments needed bilat UE support Timed Up and Go (TUG) Score 57 Comments 4WW TUG Impairment Rating 100% Impaired (Score 20) PT-OP-G Mobility & Gait Start: 11/23/20 13:39 Freq: Status: Active Protocol: Document 11/23/20 14:15 AMB (Rec: 11/23/20 15:46 AMB [email or web address]) OP Mobility Evaluation Transfers Sit to Stand Poor habits--pt tends to pull on 4WW, stop before the chair and then walk a few steps from walker to chair-- all despite extensive prior training in correct usage. OP Gait Assessment Assistive Devices Assistive Device 4 Wheeled Walker Gait Deviations General Gait Pattern Decreased Stride Length, Decreased Feet Clearance, Festinating,Lateral Trunk Lean ,Narrow Based Gait Stair Climbing Evaluation Evaluation Level of Assist On Stairs Standby Assistance Devices Stair Climbing Assistive Devices Left Railing Technique/Endurance Stair Climbing Direction Ascend and Descend Stair Climbing Technique Step to Step Number of Steps Climbed 8 PT-OP-J Posture/Palpation/Skin Start: 11/23/20 13:39 Freq: Status: Active Protocol: Document 11/23/20 14:15 AMB (Rec: 11/23/20 15:46 AMB [email or web address]) Posture Evaluation Comments Posture Comments scoliosis, tends to have severe cervical flexion PT-OP-M Strength Start: 11/23/20 13:39 Freq: Status: Active Protocol: Document 11/23/20 14:15 AMB (Rec: 11/23/20 15:46 AMB [email or web address]) Hip Strength Hip Manual Muscle Testing Right Flexion (L2) 4+ Good+ Extension (S1) 4- Good- Abduction 4 Good Left Flexion (L2) 4+ Good+ Extension (S1) 4- Good- Abduction 4 Good Knee Strength Knee Manual Muscle Testing Right Flexion (S2) 4- Good- Extension (L3) 4+ Good+ Left Flexion (S2) 4- Good- Extension (L3) 4+ Good+ PT-OP-Q Treatments Start: 11/23/20 13:39 Freq: Status: Active Protocol: Document 02/08/21 11:15 AMB (Rec: 02/08/21 16:10 AMB [email or web address]) Therapeutic Exercises Supine Exercises 3 Supine Exercise Name piriformis stretch Reps/Minutes 30x3 2 Supine Exercise Name LTR Reps/Minutes 10 1 Supine Exercise Name Bridging Reps/Minutes 2x10 Gait Training Gait Activity 3 Description indoor walking-navigating clinic Distance/Duration 500' Comments Cyrstal needed repeat cues to not run into objects/people in clinic- vision is a big impairment. PT-OP-T Assessment and Plan Start: 11/23/20 13:39 Freq: Status: Active Protocol: Document 02/08/21 11:15 AMB (Rec: 02/08/21 16:10 AMB [email or web address]) Physical Therapy Assessment Assessment Summary Assessment Crystal did wel with supine HEP today. Continues to need cues for safe mobility around clinic, needs extensive education in exercises. Physical Therapy Plan Next Visit Focus/Plan Next Note Type Treatment Note Next Visit Plan Progress HEP as safety allows
--- NOTE | 2021-02-15 15:17 | PT.OTN ---
Current Diagnoses Parkinson's disease (02/15/21) Other abnormalities of gait and mobility (02/15/21) History of falling (02/15/21) Physical Therapy Treatment Note PT-OP-A Visit Information Start: 11/23/20 13:39 Freq: Status: Active Protocol: Document 02/15/21 11:16 AMB (Rec: 02/15/21 11:39 AMB [id number]) Out-Patient Physical Therapy Visit Information Visit Information Visit Type Progress Note Visit Start Time 11:15 Visit Stop Time 12:00 Total Visit Minutes 45 Visit Number 11 PT-OP-B Current Condition Start: 11/23/20 13:39 Freq: Status: Active Protocol: Document 11/23/20 14:15 AMB (Rec: 11/23/20 14:28 AMB [id number]) Current Condition History of Current Condition Onset Date years Current Complaints fall history, Parkinsons History of Current Condition Crystal returns to physical therapy to continue to reduce her fall risk. She reports a bad fall going into the shower fell in October and hit her head. Multiple other small falls. She does report that she now uses the walker in the house. Also has noticed reaching for things that are out of reach causes falls. Lives in a two story house with her . Has a walk in shower without grab bars. L shoulder pain with stretching- did have clavicle fracture that she reports healed poory- sleeping on the shoulder is challenging. Difficult to get up from the floor- does have knee pain with kneeling. No longer doing the laundry- takes it to a laundromat. No longer wearing her glasses, no longer cooks. Doing BIG exercises, reads. My doesn't let me do anything any more. Prior Treatments and Tests BIG therapy recently have continued on with exercises Treatment Goals Patient/Caregiver Goals I'd like how to use my walker better, going in and out of doorways, getting in and out of the car. Prior Functional Status Baseline Function- ADL's Modified Independent Baseline Function- Mobility Modified Independent Current Functional Impairments (Reported) Functional Limitations- ADL's No longer does laundry, no longer cooks, falls with ADLS like bathing, dressing Personal Factors Other Personal Factors That May Effect Long history of falls, vision Therapy/Recovery issues, recall issues PT-OP-C Subjective Start: 11/23/20 13:39 Freq: Status: Active Protocol: Document 02/15/21 11:16 AMB (Rec: 02/15/21 11:39 AMB [id number]) OP-PT Subjective Patient Comments Patient Comments Mid back pain after fall backwards. Was using walker, but notes difficulty with turning and walking backwards to sit down. PT-OP-E Functional Tests Start: 11/23/20 13:39 Freq: Status: Active Protocol: Document 01/31/21 13:30 AMB (Rec: 01/31/21 15:25 AMB [id number]) Functional Tests 6 Minute Walk Test Distance 414 Device Used 4WW Comments cues for navigating Five Times Sit to Stand Test Score 40 Comments needed bilat UE support Timed Up and Go (TUG) Score 57 Comments 4WW TUG Impairment Rating 100% Impaired (Score 20) PT-OP-G Mobility & Gait Start: 11/23/20 13:39 Freq: Status: Active Protocol: Document 11/23/20 14:15 AMB (Rec: 11/23/20 15:46 AMB [email or web address]) OP Mobility Evaluation Transfers Sit to Stand Poor habits--pt tends to pull on 4WW, stop before the chair and then walk a few steps from walker to chair-- all despite extensive prior training in correct usage. OP Gait Assessment Assistive Devices Assistive Device 4 Wheeled Walker Gait Deviations General Gait Pattern Decreased Stride Length, Decreased Feet Clearance, Festinating,Lateral Trunk Lean ,Narrow Based Gait Stair Climbing Evaluation Evaluation Level of Assist On Stairs Standby Assistance Devices Stair Climbing Assistive Devices Left Railing Technique/Endurance Stair Climbing Direction Ascend and Descend Stair Climbing Technique Step to Step Number of Steps Climbed 8 PT-OP-J Posture/Palpation/Skin Start: 11/23/20 13:39 Freq: Status: Active Protocol: Document 11/23/20 14:15 AMB (Rec: 11/23/20 15:46 AMB [email or web address]) Posture Evaluation Comments Posture Comments scoliosis, tends to have severe cervical flexion PT-OP-M Strength Start: 11/23/20 13:39 Freq: Status: Active Protocol: Document 11/23/20 14:15 AMB (Rec: 11/23/20 15:46 AMB [email or web address]) Hip Strength Hip Manual Muscle Testing Right Flexion (L2) 4+ Good+ Extension (S1) 4- Good- Abduction 4 Good Left Flexion (L2) 4+ Good+ Extension (S1) 4- Good- Abduction 4 Good Knee Strength Knee Manual Muscle Testing Right Flexion (S2) 4- Good- Extension (L3) 4+ Good+ Left Flexion (S2) 4- Good- Extension (L3) 4+ Good+ PT-OP-Q Treatments Start: 11/23/20 13:39 Freq: Status: Active Protocol: Document 02/15/21 12:44 AMB (Rec: 02/15/21 12:48 AMB [email or web address]) Therapeutic Activity Therapeutic Activity 5 Name sit to stand Reps/Minutes 10x2 Comments vc lean forward Gait Training Gait Activity 1 Description sit to stand then walk around cones and gym equipment Comments with 4WW- Crystal needs repeat cues for sequencing safely brake mgt after cues, safely using 4WW obstacle mgt focuses one side. 3 Description indoor walking-navigating clinic Distance/Duration 500' Comments Crsytal needed repeat cues to not run into objects/people in clinic- vision is a big impairment. PT-OP-T Assessment and Plan Start: 11/23/20 13:39 Freq: Status: Active Protocol: Document 02/15/21 11:16 AMB (Rec: 02/15/21 11:39 AMB [id number]) Physical Therapy Assessment Goals Three Impairment Sit to stand Short Term Goal (STG) Crystal will improve her 5x sit to stand to 20 seconds or less . STG Duration 01/31: 40 seconds Title Department Manager Goal (LTG) Crystal will move from sit to stand from a low chair without UE support with good balance. LTG Duration NOT MET Two Impairment Gait Short Term Goal (STG) Crystal will walk with her 4WW for 6 minutes over smooth terrain without loss of balance or running into obstacles. STG Duration NOT MET One Impairment Fall risk Short Term Goal (STG) Crystal will decrease her timed up and go score to 30 seconds or less to show decreased risk of falling. STG Duration NOT MET Alf Goal (LTG) Crystal will use her 4WW appropriately when moving from walking to sitting ( remembering to reach for chair , not leaving 4WW and walking to chair, etc.). LTG Duration NOT MET Assessment Summary Assessment Crystal's function continues to worsen, however without physical therapy her physical function would likely be even worse. We continue to work on gait and transfer safety, and while Crystal cognitively can understand what she is supposed to do, planning the motor function continues to be quite challenging. Her impaired vision also complicates her safety and fall risk. She continues to be very high risk for falling. Physical Therapy Plan Frequency and Duration Frequency of Treatment 1x/Week Duration of Treatment 4 weeks Plan of Care Start Date 02/15/21 Plan of Care End Date 03/15/21 Therapeutic Interventions Therapeutic Interventions Balance Training,Gait Training ,Home Exercise Program,Manual Therapy,Neuromuscular Re- education,Self-Care/Home Management,Therapeutic Activities,Therapeutic Exercises
--- NOTE | 2021-02-15 15:18 | PT.OPPOC ---
Physical, Occupational & Speech Therapy At [facility] Current Diagnoses Parkinson's disease (02/15/21) Other abnormalities of gait and mobility (02/15/21) History of falling (02/15/21) Visit Care Team Role Provider Type Helen Burroughs MD Family Provider Physician Primary Care Provider Specialty: Internal Medicine Address: [address] [place] [address], [facility] Email: [email or web address] Attending Provider Referring Provider Specialty: Address: Phone: Fax: Email: Plan Of Care PT-OP-T Assessment and Plan Start: 11/23/20 13:39 Freq: Status: Active Protocol: Document 02/15/21 11:16 AMB (Rec: 02/15/21 11:39 AMB [id number]) Physical Therapy Assessment Goals Three Impairment Sit to stand Short Term Goal (STG) Crystal will improve her 5x sit to stand to 20 seconds or less . STG Duration 01/31: 40 seconds Proj Mgr Goal (LTG) Crystal will move from sit to stand from a low chair without UE support with good balance. LTG Duration NOT MET Two Impairment Gait Short Term Goal (STG) Crystal will walk with her 4WW for 6 minutes over smooth terrain without loss of balance or running into obstacles. STG Duration NOT MET One Impairment Fall risk Short Term Goal (STG) Crystal will decrease her timed up and go score to 30 seconds or less to show decreased risk of falling. STG Duration NOT MET Proj Mgr Goal (LTG) Crystal will use her 4WW appropriately when moving from walking to sitting ( remembering to reach for chair , not leaving 4WW and walking to chair, etc.). LTG Duration NOT MET Assessment Summary Assessment Crystal's function continues to worsen, however without physical therapy her physical function would likely be even worse. We continue to work on gait and transfer safety, and while Crystal cognitively can understand what she is supposed to do, planning the motor function continues to be quite challenging. Her impaired vision also complicates her safety and fall risk. She continues to be very high risk for falling. Physical Therapy Plan Frequency and Duration Frequency of Treatment 1x/Week Duration of Treatment 4 weeks Plan of Care Start Date 02/15/21 Plan of Care End Date 03/15/21 Therapeutic Interventions Therapeutic Interventions Balance Training,Gait Training ,Home Exercise Program,Manual Therapy,Neuromuscular Re- education,Self-Care/Home Management,Therapeutic Activities,Therapeutic Exercises Plan of Care Dates Plan of Care Start Date 02/15/21 Plan of Care End Date 03/15/21 Electronically Signed by: Maribel Fernández, PT 02/15/21 0594 Please Sign and Return: I have reviewed this Plan of Care and certify that the skilled therapy services above are required to meet the patient?s needs. Physician Signature Date Printed Name and Credentials Clinical Instructor Signature Printed Name and Credentials
--- NOTE | 2021-02-21 09:45 | PT.OTN ---
Current Diagnoses Parkinson's disease (02/21/21) Other abnormalities of gait and mobility (02/21/21) History of falling (02/21/21) Physical Therapy Treatment Note PT-OP-A Visit Information Start: 11/23/20 13:39 Freq: Status: Active Protocol: Document 02/21/21 09:00 SP (Rec: 02/21/21 09:45 SP [id number]) Out-Patient Physical Therapy Visit Information Visit Information Visit Type Treatment Note Visit Start Time 09:00 Visit Stop Time 09:45 Total Visit Minutes 45 Visit Number 12 Number of FURNACE ROOM SUPERVISOR Visits 1 PT-OP-B Current Condition Start: 11/23/20 13:39 Freq: Status: Active Protocol: Document 11/23/20 14:15 AMB (Rec: 11/23/20 14:28 AMB [id number]) Current Condition History of Current Condition Onset Date years Current Complaints fall history, Parkinsons History of Current Condition Crystal returns to physical therapy to continue to reduce her fall risk. She reports a bad fall going into the shower fell in October and hit her head. Multiple other small falls. She does report that she now uses the walker in the house. Also has noticed reaching for things that are out of reach causes falls. Lives in a two story house with her . Has a walk in shower without grab bars. L shoulder pain with stretching- did have clavicle fracture that she reports healed poory- sleeping on the shoulder is challenging. Difficult to get up from the floor- does have knee pain with kneeling. No longer doing the laundry- takes it to a laundromat. No longer wearing her glasses, no longer cooks. Doing BIG exercises, reads. My doesn't let me do anything any more. Prior Treatments and Tests BIG therapy recently have continued on with exercises Treatment Goals Patient/Caregiver Goals I'd like how to use my walker better, going in and out of doorways, getting in and out of the car. Prior Functional Status Baseline Function- ADL's Modified Independent Baseline Function- Mobility Modified Independent Current Functional Impairments (Reported) Functional Limitations- ADL's No longer does laundry, no longer cooks, falls with ADLS like bathing, dressing Personal Factors Other Personal Factors That May Effect Long history of falls, vision Therapy/Recovery issues, recall issues PT-OP-C Subjective Start: 11/23/20 13:39 Freq: Status: Active Protocol: Document 02/21/21 09:00 SP (Rec: 02/21/21 09:45 SP [id number]) OP-PT Subjective Patient Comments Patient Comments Pt reported doing well. PT-OP-E Functional Tests Start: 11/23/20 13:39 Freq: Status: Active Protocol: Document 01/31/21 13:30 AMB (Rec: 01/31/21 15:25 AMB [id number]) Functional Tests 6 Minute Walk Test Distance 414 Device Used 4WW Comments cues for navigating Five Times Sit to Stand Test Score 40 Comments needed bilat UE support Timed Up and Go (TUG) Score 57 Comments 4WW TUG Impairment Rating 100% Impaired (Score 20) PT-OP-G Mobility & Gait Start: 11/23/20 13:39 Freq: Status: Active Protocol: Document 11/23/20 14:15 AMB (Rec: 11/23/20 15:46 AMB [email or web address]) OP Mobility Evaluation Transfers Sit to Stand Poor habits--pt tends to pull on 4WW, stop before the chair and then walk a few steps from walker to chair-- all despite extensive prior training in correct usage. OP Gait Assessment Assistive Devices Assistive Device 4 Wheeled Walker Gait Deviations General Gait Pattern Decreased Stride Length, Decreased Feet Clearance, Festinating,Lateral Trunk Lean ,Narrow Based Gait Stair Climbing Evaluation Evaluation Level of Assist On Stairs Standby Assistance Devices Stair Climbing Assistive Devices Left Railing Technique/Endurance Stair Climbing Direction Ascend and Descend Stair Climbing Technique Step to Step Number of Steps Climbed 8 PT-OP-J Posture/Palpation/Skin Start: 11/23/20 13:39 Freq: Status: Active Protocol: Document 11/23/20 14:15 AMB (Rec: 11/23/20 15:46 AMB [email or web address]) Posture Evaluation Comments Posture Comments scoliosis, tends to have severe cervical flexion PT-OP-M Strength Start: 11/23/20 13:39 Freq: Status: Active Protocol: Document 11/23/20 14:15 AMB (Rec: 11/23/20 15:46 AMB [email or web address]) Hip Strength Hip Manual Muscle Testing Right Flexion (L2) 4+ Good+ Extension (S1) 4- Good- Abduction 4 Good Left Flexion (L2) 4+ Good+ Extension (S1) 4- Good- Abduction 4 Good Knee Strength Knee Manual Muscle Testing Right Flexion (S2) 4- Good- Extension (L3) 4+ Good+ Left Flexion (S2) 4- Good- Extension (L3) 4+ Good+ PT-OP-Q Treatments Start: 11/23/20 13:39 Freq: Status: Active Protocol: Document 02/21/21 09:00 SP (Rec: 02/21/21 09:45 SP [id number]) Therapeutic Activity Therapeutic Activity 5 Name sit to stand Reps/Minutes 10x2 Comments 4 reps in 30sec. Max cues for lean forward ascend/ descending with UE reaching back prior sit for safety guidence. Gait Training Gait Activity 1 Description sit to stand then walk around cones and gym equipment Comments with 4WW- Crystal needs repeat cues for sequencing safely brake mgt after cues, safely using 4WW obstacle mgt focuses one side. 3 Description indoor walking-navigating clinic Distance/Duration 203 ft, 256 ft Comments Crystal needed repeat cues to not run into objects/people in clinic- vision is a big impairment. Neuro Re-Education Treatment Balance Activities 3 Details standing balance COG over SHU Equipment //bars Comments -WBOS, NBOS w/ head turns CG- Min A - stagger 1 foot on 8 step COG over SHU PT-OP-T Assessment and Plan Start: 11/23/20 13:39 Freq: Status: Active Protocol: Document 02/21/21 09:00 SP (Rec: 02/21/21 09:45 SP [id number]) Physical Therapy Assessment Goals Three Impairment Sit to stand Short Term Goal (STG) Crystal will improve her 5x sit to stand to 20 seconds or less . STG Duration 01/31: 40 seconds Centrifugal Chiller Technician Goal (LTG) Crystal will move from sit to stand from a low chair without UE support with good balance. LTG Duration NOT MET Two Impairment Gait Short Term Goal (STG) Crystal will walk with her 4WW for 6 minutes over smooth terrain without loss of balance or running into obstacles. STG Duration NOT MET One Impairment Fall risk Short Term Goal (STG) Crystal will decrease her timed up and go score to 30 seconds or less to show decreased risk of falling. STG Duration NOT MET Centrifugal Chiller Technician Goal (LTG) Crystal will use her 4WW appropriately when moving from walking to sitting ( remembering to reach for chair , not leaving 4WW and walking to chair, etc.). LTG Duration NOT MET Assessment Summary Assessment Pt continues to require max cuing for forward hip hinge COG over SHU to decrease retro lean for safety ascend/ descend sit<> stands, proper hand placement for safety. Pt had 1 LOB requiring Mod A for recovery while pivoting and backing up to chair due to retro lean and couldn't recovery without assist. Min cues for obstacle management using 4WW for safety. We continue to work on gait and transfer safety, and while Crystal cognitively can understand what she is supposed to do, planning the motor function continues to be quite challenging along with vision impaired. She continues to be very high risk for falling. Physical Therapy Plan Frequency and Duration Frequency of Treatment 1x/Week Duration of Treatment 4 weeks Plan of Care Start Date 02/15/21 Plan of Care End Date 03/15/21 Therapeutic Interventions Therapeutic Interventions Balance Training,Gait Training ,Home Exercise Program,Manual Therapy,Neuromuscular Re- education,Self-Care/Home Management,Therapeutic Activities,Therapeutic Exercises Next Visit Focus/Plan Next Note Type Treatment Note Next Visit Plan Progress HEP as safety allows
--- NOTE | 2021-03-01 15:57 | PT.OTN ---
Current Diagnoses Parkinson's disease (03/01/21) Other abnormalities of gait and mobility (03/01/21) History of falling (03/01/21) Physical Therapy Treatment Note PT-OP-A Visit Information Start: 11/23/20 13:39 Freq: Status: Active Protocol: Document 03/01/21 12:45 AMB (Rec: 03/01/21 13:27 AMB [id number]) Out-Patient Physical Therapy Visit Information Visit Information Visit Type Treatment Note PT-OP-B Current Condition Start: 11/23/20 13:39 Freq: Status: Active Protocol: Document 11/23/20 14:15 AMB (Rec: 11/23/20 14:28 AMB [id number]) Current Condition History of Current Condition Onset Date years Current Complaints fall history, Parkinsons History of Current Condition Crystal returns to physical therapy to continue to reduce her fall risk. She reports a bad fall going into the shower fell in October and hit her head. Multiple other small falls. She does report that she now uses the walker in the house. Also has noticed reaching for things that are out of reach causes falls. Lives in a two story house with her . Has a walk in shower without grab bars. L shoulder pain with stretching- did have clavicle fracture that she reports healed poory- sleeping on the shoulder is challenging. Difficult to get up from the floor- does have knee pain with kneeling. No longer doing the laundry- takes it to a laundromat. No longer wearing her glasses, no longer cooks. Doing BIG exercises, reads. My doesn't let me do anything any more. Prior Treatments and Tests BIG therapy recently have continued on with exercises Treatment Goals Patient/Caregiver Goals I'd like how to use my walker better, going in and out of doorways, getting in and out of the car. Prior Functional Status Baseline Function- ADL's Modified Independent Baseline Function- Mobility Modified Independent Current Functional Impairments (Reported) Functional Limitations- ADL's No longer does laundry, no longer cooks, falls with ADLS like bathing, dressing Personal Factors Other Personal Factors That May Effect Long history of falls, vision Therapy/Recovery issues, recall issues PT-OP-C Subjective Start: 11/23/20 13:39 Freq: Status: Active Protocol: Document 03/01/21 12:45 AMB (Rec: 03/01/21 15:57 AMB [email or web address]) OP-PT Subjective Patient Comments Patient Comments Pt is attending in transport chair today. PT-OP-E Functional Tests Start: 11/23/20 13:39 Freq: Status: Active Protocol: Document 01/31/21 13:30 AMB (Rec: 01/31/21 15:25 AMB [id number]) Functional Tests 6 Minute Walk Test Distance 414 Device Used 4WW Comments cues for navigating Five Times Sit to Stand Test Score 40 Comments needed bilat UE support Timed Up and Go (TUG) Score 57 Comments 4WW TUG Impairment Rating 100% Impaired (Score 20) PT-OP-G Mobility & Gait Start: 11/23/20 13:39 Freq: Status: Active Protocol: Document 11/23/20 14:15 AMB (Rec: 11/23/20 15:46 AMB [email or web address]) OP Mobility Evaluation Transfers Sit to Stand Poor habits--pt tends to pull on 4WW, stop before the chair and then walk a few steps from walker to chair-- all despite extensive prior training in correct usage. OP Gait Assessment Assistive Devices Assistive Device 4 Wheeled Walker Gait Deviations General Gait Pattern Decreased Stride Length, Decreased Feet Clearance, Festinating,Lateral Trunk Lean ,Narrow Based Gait Stair Climbing Evaluation Evaluation Level of Assist On Stairs Standby Assistance Devices Stair Climbing Assistive Devices Left Railing Technique/Endurance Stair Climbing Direction Ascend and Descend Stair Climbing Technique Step to Step Number of Steps Climbed 8 PT-OP-J Posture/Palpation/Skin Start: 11/23/20 13:39 Freq: Status: Active Protocol: Document 11/23/20 14:15 AMB (Rec: 11/23/20 15:46 AMB [email or web address]) Posture Evaluation Comments Posture Comments scoliosis, tends to have severe cervical flexion PT-OP-M Strength Start: 11/23/20 13:39 Freq: Status: Active Protocol: Document 11/23/20 14:15 AMB (Rec: 11/23/20 15:46 AMB [email or web address]) Hip Strength Hip Manual Muscle Testing Right Flexion (L2) 4+ Good+ Extension (S1) 4- Good- Abduction 4 Good Left Flexion (L2) 4+ Good+ Extension (S1) 4- Good- Abduction 4 Good Knee Strength Knee Manual Muscle Testing Right Flexion (S2) 4- Good- Extension (L3) 4+ Good+ Left Flexion (S2) 4- Good- Extension (L3) 4+ Good+ PT-OP-Q Treatments Start: 11/23/20 13:39 Freq: Status: Active Protocol: Document 03/01/21 12:45 AMB (Rec: 03/01/21 15:57 AMB [email or web address]) Therapeutic Exercises Sitting Exercises 2 Sitting Exercise Name t band seated exercises Resistance #3 t band Comments hip abd, knee ext, flex, hip flex 1 Sitting Exercise Name toe tapping alternating Comments difficult to coordinate Gait Training Gait Activity 1 Description sit to stand then walk around cones and gym equipment Comments with 4WW- Crystal needs repeat cues for sequencing safely brake mgt after cues, safely using 4WW obstacle mgt focuses one side. 3 Description outdoor walking Distance/Duration 200ft Comments Crystal needed repeat cues to not run into objects/people in clinic- vision is a big impairment. PT-OP-T Assessment and Plan Start: 11/23/20 13:39 Freq: Status: Active Protocol: Document 03/01/21 12:45 AMB (Rec: 03/01/21 15:57 AMB [email or web address]) Physical Therapy Assessment Goals Three Impairment Sit to stand Short Term Goal (STG) Crystal will improve her 5x sit to stand to 20 seconds or less . STG Duration 01/31: 40 seconds Penitentiary Goal (LTG) Crystal will move from sit to stand from a low chair without UE support with good balance. LTG Duration NOT MET Two Impairment Gait Short Term Goal (STG) Crystal will walk with her 4WW for 6 minutes over smooth terrain without loss of balance or running into obstacles. STG Duration NOT MET One Impairment Fall risk Short Term Goal (STG) Crystal will decrease her timed up and go score to 30 seconds or less to show decreased risk of falling. STG Duration NOT MET Keg Washer Goal (LTG) Crystal will use her 4WW appropriately when moving from walking to sitting ( remembering to reach for chair , not leaving 4WW and walking to chair, etc.). LTG Duration NOT MET Assessment Summary Assessment Pt attended with w/c today and new gait belt. Encouraged pt that we will continue to work on gait here. Pt given seated exercises to work on continued strengthening. Physical Therapy Plan Next Visit Focus/Plan Next Note Type Treatment Note Next Visit Plan Progress HEP as safety allows
--- NOTE | 2021-03-08 15:28 | PT.OTN ---
Current Diagnoses Parkinson's disease (03/08/21) Other abnormalities of gait and mobility (03/08/21) History of falling (03/08/21) Physical Therapy Treatment Note PT-OP-A Visit Information Start: 11/23/20 13:39 Freq: Status: Active Protocol: Document 03/08/21 12:45 AMB (Rec: 03/08/21 15:28 AMB [email or web address]) Out-Patient Physical Therapy Visit Information Visit Information Visit Type Treatment Note Visit Start Time 12:45 Visit Stop Time 13:30 Total Visit Minutes 45 Visit Number 13 PT-OP-B Current Condition Start: 11/23/20 13:39 Freq: Status: Active Protocol: Document 11/23/20 14:15 AMB (Rec: 11/23/20 14:28 AMB [id number]) Current Condition History of Current Condition Onset Date years Current Complaints fall history, Parkinsons History of Current Condition Crystal returns to physical therapy to continue to reduce her fall risk. She reports a bad fall going into the shower fell in October and hit her head. Multiple other small falls. She does report that she now uses the walker in the house. Also has noticed reaching for things that are out of reach causes falls. Lives in a two story house with her . Has a walk in shower without grab bars. L shoulder pain with stretching- did have clavicle fracture that she reports healed poory- sleeping on the shoulder is challenging. Difficult to get up from the floor- does have knee pain with kneeling. No longer doing the laundry- takes it to a laundromat. No longer wearing her glasses, no longer cooks. Doing BIG exercises, reads. My doesn't let me do anything any more. Prior Treatments and Tests BIG therapy recently have continued on with exercises Treatment Goals Patient/Caregiver Goals I'd like how to use my walker better, going in and out of doorways, getting in and out of the car. Prior Functional Status Baseline Function- ADL's Modified Independent Baseline Function- Mobility Modified Independent Current Functional Impairments (Reported) Functional Limitations- ADL's No longer does laundry, no longer cooks, falls with ADLS like bathing, dressing Personal Factors Other Personal Factors That May Effect Long history of falls, vision Therapy/Recovery issues, recall issues PT-OP-C Subjective Start: 11/23/20 13:39 Freq: Status: Active Protocol: Document 03/08/21 12:45 AMB (Rec: 03/08/21 15:28 AMB [email or web address]) OP-PT Subjective Patient Comments Patient Comments Pt attends with 4WW, Wilber attends first 10 minutes, states she had an almost choking episode last night. She fell backwards onto her buttocks. PT-OP-E Functional Tests Start: 11/23/20 13:39 Freq: Status: Active Protocol: Document 01/31/21 13:30 AMB (Rec: 01/31/21 15:25 AMB [id number]) Functional Tests 6 Minute Walk Test Distance 414 Device Used 4WW Comments cues for navigating Five Times Sit to Stand Test Score 40 Comments needed bilat UE support Timed Up and Go (TUG) Score 57 Comments 4WW TUG Impairment Rating 100% Impaired (Score 20) PT-OP-G Mobility & Gait Start: 11/23/20 13:39 Freq: Status: Active Protocol: Document 11/23/20 14:15 AMB (Rec: 11/23/20 15:46 AMB [email or web address]) OP Mobility Evaluation Transfers Sit to Stand Poor habits--pt tends to pull on 4WW, stop before the chair and then walk a few steps from walker to chair-- all despite extensive prior training in correct usage. OP Gait Assessment Assistive Devices Assistive Device 4 Wheeled Walker Gait Deviations General Gait Pattern Decreased Stride Length, Decreased Feet Clearance, Festinating,Lateral Trunk Lean ,Narrow Based Gait Stair Climbing Evaluation Evaluation Level of Assist On Stairs Standby Assistance Devices Stair Climbing Assistive Devices Left Railing Technique/Endurance Stair Climbing Direction Ascend and Descend Stair Climbing Technique Step to Step Number of Steps Climbed 8 PT-OP-J Posture/Palpation/Skin Start: 11/23/20 13:39 Freq: Status: Active Protocol: Document 11/23/20 14:15 AMB (Rec: 11/23/20 15:46 AMB [email or web address]) Posture Evaluation Comments Posture Comments scoliosis, tends to have severe cervical flexion PT-OP-M Strength Start: 11/23/20 13:39 Freq: Status: Active Protocol: Document 11/23/20 14:15 AMB (Rec: 11/23/20 15:46 AMB [email or web address]) Hip Strength Hip Manual Muscle Testing Right Flexion (L2) 4+ Good+ Extension (S1) 4- Good- Abduction 4 Good Left Flexion (L2) 4+ Good+ Extension (S1) 4- Good- Abduction 4 Good Knee Strength Knee Manual Muscle Testing Right Flexion (S2) 4- Good- Extension (L3) 4+ Good+ Left Flexion (S2) 4- Good- Extension (L3) 4+ Good+ PT-OP-Q Treatments Start: 11/23/20 13:39 Freq: Status: Active Protocol: Document 03/08/21 12:45 AMB (Rec: 03/08/21 15:28 AMB [email or web address]) Therapeutic Exercises Supine Exercises 4 Supine Exercise Name SAQ Resistance 4# Reps/Minutes 2x10 3 Supine Exercise Name piriformis stretch Reps/Minutes 30x3 2 Supine Exercise Name LTR Reps/Minutes 10 1 Supine Exercise Name Bridging Reps/Minutes 2x10 Sitting Exercises 2 Sitting Exercise Name t band seated exercises Resistance #3 t band Comments hip abd, knee ext, flex, hip flex 1 Sitting Exercise Name toe tapping alternating Comments difficult to coordinate Gait Training Gait Activity 1 Description sit to stand then walk around cones and gym equipment Comments with 4WW- Crystal needs repeat cues for sequencing safely brake mgt after cues, safely using 4WW obstacle mgt focuses one side. PT-OP-T Assessment and Plan Start: 11/23/20 13:39 Freq: Status: Active Protocol: Document 03/08/21 12:45 AMB (Rec: 03/08/21 15:28 AMB [email or web address]) Physical Therapy Assessment Goals Three Impairment Sit to stand Short Term Goal (STG) Crystal will improve her 5x sit to stand to 20 seconds or less . STG Duration 01/31: 40 seconds Rougher Machine Operator Goal (LTG) Crystal will move from sit to stand from a low chair without UE support with good balance. LTG Duration NOT MET Two Impairment Gait Short Term Goal (STG) Crystal will walk with her 4WW for 6 minutes over smooth terrain without loss of balance or running into obstacles. STG Duration NOT MET Assessment Summary Assessment Continued to encourage Crystal to communicate with Wilber when she is going to stand up so that he is able to guard her appropriately. Physical Therapy Plan Next Visit Focus/Plan Next Note Type Treatment Note Next Visit Plan Consider modified exercises for amplitude
--- NOTE | 2021-03-15 16:06 | PT.OTN ---
Current Diagnoses Parkinson's disease (03/15/21) Other abnormalities of gait and mobility (03/15/21) History of falling (03/15/21) Physical Therapy Treatment Note PT-OP-A Visit Information Start: 11/23/20 13:39 Freq: Status: Active Protocol: Document 03/15/21 12:57 AMB (Rec: 03/15/21 13:41 AMB [id number]) Out-Patient Physical Therapy Visit Information Visit Information Visit Type Progress Note Visit Start Time 13:00 Visit Stop Time 13:45 Total Visit Minutes 45 Visit Number 14 PT-OP-B Current Condition Start: 11/23/20 13:39 Freq: Status: Active Protocol: Document 11/23/20 14:15 AMB (Rec: 11/23/20 14:28 AMB [id number]) Current Condition History of Current Condition Onset Date years Current Complaints fall history, Parkinsons History of Current Condition Crystal returns to physical therapy to continue to reduce her fall risk. She reports a bad fall going into the shower fell in October and hit her head. Multiple other small falls. She does report that she now uses the walker in the house. Also has noticed reaching for things that are out of reach causes falls. Lives in a two story house with her . Has a walk in shower without grab bars. L shoulder pain with stretching- did have clavicle fracture that she reports healed poory- sleeping on the shoulder is challenging. Difficult to get up from the floor- does have knee pain with kneeling. No longer doing the laundry- takes it to a laundromat. No longer wearing her glasses, no longer cooks. Doing BIG exercises, reads. My doesn't let me do anything any more. Prior Treatments and Tests BIG therapy recently have continued on with exercises Treatment Goals Patient/Caregiver Goals I'd like how to use my walker better, going in and out of doorways, getting in and out of the car. Prior Functional Status Baseline Function- ADL's Modified Independent Baseline Function- Mobility Modified Independent Current Functional Impairments (Reported) Functional Limitations- ADL's No longer does laundry, no longer cooks, falls with ADLS like bathing, dressing Personal Factors Other Personal Factors That May Effect Long history of falls, vision Therapy/Recovery issues, recall issues PT-OP-C Subjective Start: 11/23/20 13:39 Freq: Status: Active Protocol: Document 03/15/21 13:00 AMB (Rec: 03/15/21 15:42 AMB [id number]) OP-PT Subjective Patient Comments Patient Comments Crystal fell at home and had to go to the ER because she lost conciousness after hitting her head. Wilber states he was in the room with her and she decided to stand up and before he could get to her she fell. He has since taken the walker away and she is only in the transport chair or the couch. PT-OP-E Functional Tests Start: 11/23/20 13:39 Freq: Status: Active Protocol: Document 01/31/21 13:30 AMB (Rec: 01/31/21 15:25 AMB [id number]) Functional Tests 6 Minute Walk Test Distance 414 Device Used 4WW Comments cues for navigating Five Times Sit to Stand Test Score 40 Comments needed bilat UE support Timed Up and Go (TUG) Score 57 Comments 4WW TUG Impairment Rating 100% Impaired (Score 20) PT-OP-G Mobility & Gait Start: 11/23/20 13:39 Freq: Status: Active Protocol: Document 11/23/20 14:15 AMB (Rec: 11/23/20 15:46 AMB [email or web address]) OP Mobility Evaluation Transfers Sit to Stand Poor habits--pt tends to pull on 4WW, stop before the chair and then walk a few steps from walker to chair-- all despite extensive prior training in correct usage. OP Gait Assessment Assistive Devices Assistive Device 4 Wheeled Walker Gait Deviations General Gait Pattern Decreased Stride Length, Decreased Feet Clearance, Festinating,Lateral Trunk Lean ,Narrow Based Gait Stair Climbing Evaluation Evaluation Level of Assist On Stairs Standby Assistance Devices Stair Climbing Assistive Devices Left Railing Technique/Endurance Stair Climbing Direction Ascend and Descend Stair Climbing Technique Step to Step Number of Steps Climbed 8 PT-OP-J Posture/Palpation/Skin Start: 11/23/20 13:39 Freq: Status: Active Protocol: Document 11/23/20 14:15 AMB (Rec: 11/23/20 15:46 AMB [email or web address]) Posture Evaluation Comments Posture Comments scoliosis, tends to have severe cervical flexion PT-OP-M Strength Start: 11/23/20 13:39 Freq: Status: Active Protocol: Document 11/23/20 14:15 AMB (Rec: 11/23/20 15:46 AMB [email or web address]) Hip Strength Hip Manual Muscle Testing Right Flexion (L2) 4+ Good+ Extension (S1) 4- Good- Abduction 4 Good Left Flexion (L2) 4+ Good+ Extension (S1) 4- Good- Abduction 4 Good Knee Strength Knee Manual Muscle Testing Right Flexion (S2) 4- Good- Extension (L3) 4+ Good+ Left Flexion (S2) 4- Good- Extension (L3) 4+ Good+ PT-OP-Q Treatments Start: 11/23/20 13:39 Freq: Status: Active Protocol: Document 03/15/21 13:00 AMB (Rec: 03/16/21 16:00 AMB [email or web address]) Gait Training Gait Activity 1 Description sit to stand then walk around cones and gym equipment Comments with 4WW- Crystal needs repeat cues for sequencing safely brake mgt after cues, safely using 4WW obstacle mgt focuses one side. Neuro Re-Education Treatment Other Activities 1 Details BIG exercises (seated) Comments Pt needed cues for all exercises, but was able to do them safely, difficulty with sequencing coordination, will need to repeat if pt to be independent. PT-OP-T Assessment and Plan Start: 11/23/20 13:39 Freq: Status: Active Protocol: Document 03/15/21 12:57 AMB (Rec: 03/15/21 13:41 AMB [id number]) Physical Therapy Assessment Goals Three Impairment Sit to stand Short Term Goal (STG) Crystal will improve her 5x sit to stand to 20 seconds or less . STG Duration 01/31: 40 seconds Supervisor Detasseling Crew Goal (LTG) Crystal will move from sit to stand from a low chair without UE support with good balance. LTG Duration NOT MET Two Impairment Gait Short Term Goal (STG) Crystal will walk with her 4WW for 6 minutes over smooth terrain without loss of balance or running into obstacles. STG Duration NOT MET One Impairment Fall risk Short Term Goal (STG) Crystal will decrease her timed up and go score to 30 seconds or less to show decreased risk of falling. STG Duration NOT MET Supervisor Detasseling Crew Goal (LTG) Crystal will use her 4WW appropriately when moving from walking to sitting ( remembering to reach for chair , not leaving 4WW and walking to chair, etc.). LTG Duration NOT MET Assessment Summary Assessment Spent a significant amount of today's treatment in counseling with Wilber (Crystal' s ) about home safety. Pt continues to stand up from surfaces without discussing this with him and then she falls. She went to the ED due to concussion last week. Did give pt and information on a w/c alarm so that at least he would hear when she stands up, but he states often she stands up while he is in the room but he just can't get there fast enough because she is on another couch. He has taken away the walker at this point and she either sits on the couch or in her transport chair. PT will focus on gait training to maintain strength while in PT, but agree with Wilber that Crystal is just not safe to do this at home at this point. Discussed this with Crystal and Wilber. Did instruct Crystal in a seated HEP to work on movement amplitude and coordination but will need to review again for Crystal to be able to perform independently. Wilber is considering home caregiver to help Crystal with showering and this PT would encourage that. Physical Therapy Plan Frequency and Duration Frequency of Treatment 1x/Week Duration of Treatment 8 weeks Plan of Care Start Date 03/15/21 Plan of Care End Date 05/10/21 Therapeutic Interventions Therapeutic Interventions Balance Training,Gait Training ,Home Exercise Program,Manual Therapy,Neuromuscular Re- education,Self-Care/Home Management,Therapeutic Activities,Therapeutic Exercises Next Visit Focus/Plan Next Note Type Treatment Note Next Visit Plan Progress seated exercises for amplitude and coordination
--- NOTE | 2021-03-16 16:06 | PT.OPPOC ---
Physical, Occupational & Speech Therapy At [facility] Current Diagnoses Parkinson's disease (03/15/21) Other abnormalities of gait and mobility (03/15/21) History of falling (03/15/21) Visit Care Team Role Provider Type Helen Burroughs MD Family Provider Physician Primary Care Provider Specialty: Internal Medicine Address: [address] [place] [address], [facility] Email: [email or web address] Attending Provider Referring Provider Specialty: Address: Phone: Fax: Email: Plan Of Care PT-OP-T Assessment and Plan Start: 11/23/20 13:39 Freq: Status: Active Protocol: Document 03/15/21 12:57 AMB (Rec: 03/15/21 13:41 AMB [id number]) Physical Therapy Assessment Goals Three Impairment Sit to stand Short Term Goal (STG) Crystal will improve her 5x sit to stand to 20 seconds or less . STG Duration 01/31: 40 seconds Senior Living Goal (LTG) Crystal will move from sit to stand from a low chair without UE support with good balance. LTG Duration NOT MET Two Impairment Gait Short Term Goal (STG) Crystal will walk with her 4WW for 6 minutes over smooth terrain without loss of balance or running into obstacles. STG Duration NOT MET One Impairment Fall risk Short Term Goal (STG) Crystal will decrease her timed up and go score to 30 seconds or less to show decreased risk of falling. STG Duration NOT MET Consumer Analyst Goal (LTG) Crystal will use her 4WW appropriately when moving from walking to sitting ( remembering to reach for chair , not leaving 4WW and walking to chair, etc.). LTG Duration NOT MET Assessment Summary Assessment Spent a significant amount of today's treatment in counseling with Wilber (Crystal' s ) about home safety. Pt continues to stand up from surfaces without discussing this with him and then she falls. She went to the ED due to concussion last week. Did give pt and information on a w/c alarm so that at least he would hear when she stands up, but he states often she stands up while he is in the room but he just can't get there fast enough because she is on another couch. He has taken away the walker at this point and she either sits on the couch or in her transport chair. PT will focus on gait training to maintain strength while in PT, but agree with Wilber that Crystal is just not safe to do this at home at this point. Discussed this with Crystal and Wilber. Did instruct Crystal in a seated HEP to work on movement amplitude and coordination but will need to review again for Crystal to be able to perform independently. Wilber is considering home caregiver to help Crystal with showering and this PT would encourage that. Physical Therapy Plan Frequency and Duration Frequency of Treatment 1x/Week Duration of Treatment 8 weeks Plan of Care Start Date 03/15/21 Plan of Care End Date 05/10/21 Therapeutic Interventions Therapeutic Interventions Balance Training,Gait Training ,Home Exercise Program,Manual Therapy,Neuromuscular Re- education,Self-Care/Home Management,Therapeutic Activities,Therapeutic Exercises Next Visit Focus/Plan Next Note Type Treatment Note Next Visit Plan Progress seated exercises for amplitude and coordination Plan of Care Dates Plan of Care Start Date 03/15/21 Plan of Care End Date 05/10/21 Electronically Signed by: Maribel Fernández, PT 03/16/21 [id number] Please Sign and Return: I have reviewed this Plan of Care and certify that the skilled therapy services above are required to meet the patient?s needs. Physician Signature Date Printed Name and Credentials Clinical Instructor Signature Printed Name and Credentials
--- NOTE | 2021-03-22 13:36 | PT-OP ANOTE ---
pt no showed appointment, called and left a voicemail.
--- NOTE | 2021-04-07 15:39 | PT.OTN ---
Current Diagnoses Parkinson's disease (04/07/21) Other abnormalities of gait and mobility (04/07/21) History of falling (04/07/21) Physical Therapy Treatment Note PT-OP-A Visit Information Start: 11/23/20 13:39 Freq: Status: Active Protocol: Document 04/07/21 13:46 AMB (Rec: 04/07/21 14:36 AMB [id number]) Out-Patient Physical Therapy Visit Information Visit Information Visit Type Treatment Note Visit Start Time 13:45 Visit Stop Time 14:30 Total Visit Minutes 45 Visit Number 15 PT-OP-B Current Condition Start: 11/23/20 13:39 Freq: Status: Active Protocol: Document 11/23/20 14:15 AMB (Rec: 11/23/20 14:28 AMB [id number]) Current Condition History of Current Condition Onset Date years Current Complaints fall history, Parkinsons History of Current Condition Crystal returns to physical therapy to continue to reduce her fall risk. She reports a bad fall going into the shower fell in October and hit her head. Multiple other small falls. She does report that she now uses the walker in the house. Also has noticed reaching for things that are out of reach causes falls. Lives in a two story house with her . Has a walk in shower without grab bars. L shoulder pain with stretching- did have clavicle fracture that she reports healed poory- sleeping on the shoulder is challenging. Difficult to get up from the floor- does have knee pain with kneeling. No longer doing the laundry- takes it to a laundromat. No longer wearing her glasses, no longer cooks. Doing BIG exercises, reads. My doesn't let me do anything any more. Prior Treatments and Tests BIG therapy recently have continued on with exercises Treatment Goals Patient/Caregiver Goals I'd like how to use my walker better, going in and out of doorways, getting in and out of the car. Prior Functional Status Baseline Function- ADL's Modified Independent Baseline Function- Mobility Modified Independent Current Functional Impairments (Reported) Functional Limitations- ADL's No longer does laundry, no longer cooks, falls with ADLS like bathing, dressing Personal Factors Other Personal Factors That May Effect Long history of falls, vision Therapy/Recovery issues, recall issues PT-OP-C Subjective Start: 11/23/20 13:39 Freq: Status: Active Protocol: Document 04/07/21 13:45 AMB (Rec: 04/07/21 15:39 AMB [email or web address]) OP-PT Subjective Patient Comments Patient Comments Aylin state she has not had any more falls, pretty much in the chair or on the couch all day long. PT-OP-E Functional Tests Start: 11/23/20 13:39 Freq: Status: Active Protocol: Document 01/31/21 13:30 AMB (Rec: 01/31/21 15:25 AMB [id number]) Functional Tests 6 Minute Walk Test Distance 414 Device Used 4WW Comments cues for navigating Five Times Sit to Stand Test Score 40 Comments needed bilat UE support Timed Up and Go (TUG) Score 57 Comments 4WW TUG Impairment Rating 100% Impaired (Score 20) PT-OP-G Mobility & Gait Start: 11/23/20 13:39 Freq: Status: Active Protocol: Document 11/23/20 14:15 AMB (Rec: 11/23/20 15:46 AMB [email or web address]) OP Mobility Evaluation Transfers Sit to Stand Poor habits--pt tends to pull on 4WW, stop before the chair and then walk a few steps from walker to chair-- all despite extensive prior training in correct usage. OP Gait Assessment Assistive Devices Assistive Device 4 Wheeled Walker Gait Deviations General Gait Pattern Decreased Stride Length, Decreased Feet Clearance, Festinating,Lateral Trunk Lean ,Narrow Based Gait Stair Climbing Evaluation Evaluation Level of Assist On Stairs Standby Assistance Devices Stair Climbing Assistive Devices Left Railing Technique/Endurance Stair Climbing Direction Ascend and Descend Stair Climbing Technique Step to Step Number of Steps Climbed 8 PT-OP-J Posture/Palpation/Skin Start: 11/23/20 13:39 Freq: Status: Active Protocol: Document 11/23/20 14:15 AMB (Rec: 11/23/20 15:46 AMB [email or web address]) Posture Evaluation Comments Posture Comments scoliosis, tends to have severe cervical flexion PT-OP-M Strength Start: 11/23/20 13:39 Freq: Status: Active Protocol: Document 11/23/20 14:15 AMB (Rec: 11/23/20 15:46 AMB [email or web address]) Hip Strength Hip Manual Muscle Testing Right Flexion (L2) 4+ Good+ Extension (S1) 4- Good- Abduction 4 Good Left Flexion (L2) 4+ Good+ Extension (S1) 4- Good- Abduction 4 Good Knee Strength Knee Manual Muscle Testing Right Flexion (S2) 4- Good- Extension (L3) 4+ Good+ Left Flexion (S2) 4- Good- Extension (L3) 4+ Good+ PT-OP-Q Treatments Start: 11/23/20 13:39 Freq: Status: Active Protocol: Document 04/07/21 15:30 AMB (Rec: 04/07/21 15:35 AMB [email or web address]) Gait Training Gait Activity 1 Description sit to stand then walk around cones and gym equipment Comments with 4WW- Crystal needs repeat cues for sequencing safely brake mgt after cues, safely using 4WW obstacle mgt focuses one side. Neuro Re-Education Treatment Other Activities 1 Details BIG exercises (seated) Comments Pt needed cues for all exercises, but was able to do them safely, difficulty with sequencing coordination, will need to repeat if pt to be independent. PT-OP-T Assessment and Plan Start: 11/23/20 13:39 Freq: Status: Active Protocol: Document 04/07/21 15:30 AMB (Rec: 04/07/21 15:35 AMB [email or web address]) Physical Therapy Assessment Goals Three Impairment Sit to stand Short Term Goal (STG) Crystal will improve her 5x sit to stand to 20 seconds or less . STG Duration 01/31: 40 seconds Intermediate Goal (LTG) Crystal will move from sit to stand from a low chair without UE support with good balance. LTG Duration NOT MET Two Impairment Gait Short Term Goal (STG) Crystal will walk with her 4WW for 6 minutes over smooth terrain without loss of balance or running into obstacles. STG Duration NOT MET One Impairment Fall risk Short Term Goal (STG) Crystal will decrease her timed up and go score to 30 seconds or less to show decreased risk of falling. STG Duration NOT MET Intermediate Goal (LTG) Crystal will use her 4WW appropriately when moving from walking to sitting ( remembering to reach for chair , not leaving 4WW and walking to chair, etc.). LTG Duration NOT MET Assessment Summary Assessment Crystal continues to need extensive cueing to avoid posterior lean, worse today, leaning back even in seated. Physical Therapy Plan Next Visit Focus/Plan Next Note Type Treatment Note Next Visit Plan Progress seated exercises for amplitude and coordination
--- NOTE | 2021-04-12 16:07 | PT.OTN ---
Current Diagnoses Parkinson's disease (04/12/21) Other abnormalities of gait and mobility (04/12/21) History of falling (04/12/21) Physical Therapy Treatment Note PT-OP-A Visit Information Start: 11/23/20 13:39 Freq: Status: Active Protocol: Document 04/12/21 14:30 AMB (Rec: 04/12/21 16:06 AMB [id number]) Out-Patient Physical Therapy Visit Information Visit Information Visit Type Treatment Note Visit Start Time 14:30 Visit Stop Time 15:15 Total Visit Minutes 45 Visit Number 16 PT-OP-B Current Condition Start: 11/23/20 13:39 Freq: Status: Active Protocol: Document 11/23/20 14:15 AMB (Rec: 11/23/20 14:28 AMB [id number]) Current Condition History of Current Condition Onset Date years Current Complaints fall history, Parkinsons History of Current Condition Crystal returns to physical therapy to continue to reduce her fall risk. She reports a bad fall going into the shower fell in October and hit her head. Multiple other small falls. She does report that she now uses the walker in the house. Also has noticed reaching for things that are out of reach causes falls. Lives in a two story house with her . Has a walk in shower without grab bars. L shoulder pain with stretching- did have clavicle fracture that she reports healed poory- sleeping on the shoulder is challenging. Difficult to get up from the floor- does have knee pain with kneeling. No longer doing the laundry- takes it to a laundromat. No longer wearing her glasses, no longer cooks. Doing BIG exercises, reads. My doesn't let me do anything any more. Prior Treatments and Tests BIG therapy recently have continued on with exercises Treatment Goals Patient/Caregiver Goals I'd like how to use my walker better, going in and out of doorways, getting in and out of the car. Prior Functional Status Baseline Function- ADL's Modified Independent Baseline Function- Mobility Modified Independent Current Functional Impairments (Reported) Functional Limitations- ADL's No longer does laundry, no longer cooks, falls with ADLS like bathing, dressing Personal Factors Other Personal Factors That May Effect Long history of falls, vision Therapy/Recovery issues, recall issues PT-OP-C Subjective Start: 11/23/20 13:39 Freq: Status: Active Protocol: Document 04/12/21 14:30 AMB (Rec: 04/12/21 16:06 AMB [id number]) OP-PT Subjective Patient Comments Patient Comments Crystal is able to report that she fell yesterday. She was standing to brush her teeth with her transport chair behind her PT-OP-E Functional Tests Start: 11/23/20 13:39 Freq: Status: Active Protocol: Document 01/31/21 13:30 AMB (Rec: 01/31/21 15:25 AMB [id number]) Functional Tests 6 Minute Walk Test Distance 414 Device Used 4WW Comments cues for navigating Five Times Sit to Stand Test Score 40 Comments needed bilat UE support Timed Up and Go (TUG) Score 57 Comments 4WW TUG Impairment Rating 100% Impaired (Score 20) PT-OP-G Mobility & Gait Start: 11/23/20 13:39 Freq: Status: Active Protocol: Document 11/23/20 14:15 AMB (Rec: 11/23/20 15:46 AMB [email or web address]) OP Mobility Evaluation Transfers Sit to Stand Poor habits--pt tends to pull on 4WW, stop before the chair and then walk a few steps from walker to chair-- all despite extensive prior training in correct usage. OP Gait Assessment Assistive Devices Assistive Device 4 Wheeled Walker Gait Deviations General Gait Pattern Decreased Stride Length, Decreased Feet Clearance, Festinating,Lateral Trunk Lean ,Narrow Based Gait Stair Climbing Evaluation Evaluation Level of Assist On Stairs Standby Assistance Devices Stair Climbing Assistive Devices Left Railing Technique/Endurance Stair Climbing Direction Ascend and Descend Stair Climbing Technique Step to Step Number of Steps Climbed 8 PT-OP-J Posture/Palpation/Skin Start: 11/23/20 13:39 Freq: Status: Active Protocol: Document 11/23/20 14:15 AMB (Rec: 11/23/20 15:46 AMB [email or web address]) Posture Evaluation Comments Posture Comments scoliosis, tends to have severe cervical flexion PT-OP-M Strength Start: 11/23/20 13:39 Freq: Status: Active Protocol: Document 11/23/20 14:15 AMB (Rec: 11/23/20 15:46 AMB [email or web address]) Hip Strength Hip Manual Muscle Testing Right Flexion (L2) 4+ Good+ Extension (S1) 4- Good- Abduction 4 Good Left Flexion (L2) 4+ Good+ Extension (S1) 4- Good- Abduction 4 Good Knee Strength Knee Manual Muscle Testing Right Flexion (S2) 4- Good- Extension (L3) 4+ Good+ Left Flexion (S2) 4- Good- Extension (L3) 4+ Good+ PT-OP-Q Treatments Start: 11/23/20 13:39 Freq: Status: Active Protocol: Document 04/12/21 14:30 AMB (Rec: 04/12/21 16:06 AMB [id number]) Therapeutic Activity Therapeutic Activity 5 Name sit to stand Reps/Minutes 10x2 Comments Max cues for lean forward ascend/ descending with UE reaching back prior sit for safety guidence. Pt needed min/modA for appropriate form. Gait Training Gait Activity 1 Description sit to stand then walk around cones and gym equipment Comments with 4WW- Crystal needs repeat cues for sequencing safely brake mgt after cues, safely using 4WW obstacle mgt focuses one side. 4 Description walking: backing up and turning Comments with 4WW - managing backing up into chair PT-OP-T Assessment and Plan Start: 11/23/20 13:39 Freq: Status: Active Protocol: Document 04/12/21 14:30 AMB (Rec: 04/12/21 16:06 AMB [id number]) Physical Therapy Assessment Assessment Summary Assessment Would like to follow up with Wilber on transfer training and if he needs assistance with getting antitip bars or a different w/c, will call Physical Therapy Plan Next Visit Focus/Plan Next Note Type Treatment Note Next Visit Plan Progress seated exercises for amplitude and coordination
--- NOTE | 2021-04-19 12:14 | PT.OTN ---
Current Diagnoses Parkinson's disease (04/19/21) Other abnormalities of gait and mobility (04/19/21) History of falling (04/19/21) Physical Therapy Treatment Note PT-OP-A Visit Information Start: 11/23/20 13:39 Freq: Status: Active Protocol: Document 04/19/21 11:15 AMB (Rec: 04/19/21 12:14 AMB [email or web address]) Out-Patient Physical Therapy Visit Information Visit Information Visit Type Treatment Note Visit Start Time 11:15 Visit Stop Time 12:00 Total Visit Minutes 45 Visit Number 17 PT-OP-B Current Condition Start: 11/23/20 13:39 Freq: Status: Active Protocol: Document 11/23/20 14:15 AMB (Rec: 11/23/20 14:28 AMB [id number]) Current Condition History of Current Condition Onset Date years Current Complaints fall history, Parkinsons History of Current Condition Crystal returns to physical therapy to continue to reduce her fall risk. She reports a bad fall going into the shower fell in October and hit her head. Multiple other small falls. She does report that she now uses the walker in the house. Also has noticed reaching for things that are out of reach causes falls. Lives in a two story house with her . Has a walk in shower without grab bars. L shoulder pain with stretching- did have clavicle fracture that she reports healed poory- sleeping on the shoulder is challenging. Difficult to get up from the floor- does have knee pain with kneeling. No longer doing the laundry- takes it to a laundromat. No longer wearing her glasses, no longer cooks. Doing BIG exercises, reads. My doesn't let me do anything any more. Prior Treatments and Tests BIG therapy recently have continued on with exercises Treatment Goals Patient/Caregiver Goals I'd like how to use my walker better, going in and out of doorways, getting in and out of the car. Prior Functional Status Baseline Function- ADL's Modified Independent Baseline Function- Mobility Modified Independent Current Functional Impairments (Reported) Functional Limitations- ADL's No longer does laundry, no longer cooks, falls with ADLS like bathing, dressing Personal Factors Other Personal Factors That May Effect Long history of falls, vision Therapy/Recovery issues, recall issues PT-OP-C Subjective Start: 11/23/20 13:39 Freq: Status: Active Protocol: Document 04/19/21 11:15 AMB (Rec: 04/19/21 12:14 AMB [email or web address]) OP-PT Subjective Patient Comments Patient Comments Crystal attends with her for the first few minutes of the PT session. He states that she will be getting an evaulation for a new w/c next week. He is having difficulty with her pulling backwards with transfers. She has not had any falls this week. PT-OP-E Functional Tests Start: 11/23/20 13:39 Freq: Status: Active Protocol: Document 01/31/21 13:30 AMB (Rec: 01/31/21 15:25 AMB [id number]) Functional Tests 6 Minute Walk Test Distance 414 Device Used 4WW Comments cues for navigating Five Times Sit to Stand Test Score 40 Comments needed bilat UE support Timed Up and Go (TUG) Score 57 Comments 4WW TUG Impairment Rating 100% Impaired (Score 20) PT-OP-G Mobility & Gait Start: 11/23/20 13:39 Freq: Status: Active Protocol: Document 11/23/20 14:15 AMB (Rec: 11/23/20 15:46 AMB [email or web address]) OP Mobility Evaluation Transfers Sit to Stand Poor habits--pt tends to pull on 4WW, stop before the chair and then walk a few steps from walker to chair-- all despite extensive prior training in correct usage. OP Gait Assessment Assistive Devices Assistive Device 4 Wheeled Walker Gait Deviations General Gait Pattern Decreased Stride Length, Decreased Feet Clearance, Festinating,Lateral Trunk Lean ,Narrow Based Gait Stair Climbing Evaluation Evaluation Level of Assist On Stairs Standby Assistance Devices Stair Climbing Assistive Devices Left Railing Technique/Endurance Stair Climbing Direction Ascend and Descend Stair Climbing Technique Step to Step Number of Steps Climbed 8 PT-OP-J Posture/Palpation/Skin Start: 11/23/20 13:39 Freq: Status: Active Protocol: Document 11/23/20 14:15 AMB (Rec: 11/23/20 15:46 AMB [email or web address]) Posture Evaluation Comments Posture Comments scoliosis, tends to have severe cervical flexion PT-OP-M Strength Start: 11/23/20 13:39 Freq: Status: Active Protocol: Document 11/23/20 14:15 AMB (Rec: 11/23/20 15:46 AMB [email or web address]) Hip Strength Hip Manual Muscle Testing Right Flexion (L2) 4+ Good+ Extension (S1) 4- Good- Abduction 4 Good Left Flexion (L2) 4+ Good+ Extension (S1) 4- Good- Abduction 4 Good Knee Strength Knee Manual Muscle Testing Right Flexion (S2) 4- Good- Extension (L3) 4+ Good+ Left Flexion (S2) 4- Good- Extension (L3) 4+ Good+ PT-OP-Q Treatments Start: 11/23/20 13:39 Freq: Status: Active Protocol: Document 04/19/21 11:15 AMB (Rec: 04/19/21 12:14 AMB [email or web address]) Therapeutic Activity Therapeutic Activity 5 Name sit to stand Reps/Minutes 10x2 Comments Max cues for lean forward ascend/ descending with UE reaching back prior sit for safety guidence. Pt needed min/modA for appropriate form. 1 Name squat pivot transfer Comments reaching forward gave pt better lean forward Gait Training Gait Activity 1 Description sit to stand then walk around cones and gym equipment Comments with 4WW- Crystal needs repeat cues for sequencing safely brake mgt after cues, safely using 4WW obstacle mgt focuses one side. Neuro Re-Education Treatment Other Activities 1 Details BIG exercises (seated) Comments Pt needed cues for all exercises, but was able to do them safely, difficulty with sequencing coordination, will need to repeat if pt to be independent. Just did forward reach warm up today. PT-OP-T Assessment and Plan Start: 11/23/20 13:39 Freq: Status: Active Protocol: Document 04/19/21 11:15 AMB (Rec: 04/19/21 12:14 AMB [email or web address]) Physical Therapy Assessment Assessment Summary Assessment Crystal did well with cues for forward reach instead of leaning forward. Best when she has something to reach towards like w/c arm rest, did give her this info written down to give to Wilber. Physical Therapy Plan Next Visit Focus/Plan Next Note Type Treatment Note Next Visit Plan Progress seated exercises for amplitude and coordination
--- NOTE | 2021-04-26 12:00 | PT.OTN ---
Current Diagnoses Parkinson's disease (04/26/21) Other abnormalities of gait and mobility (04/26/21) History of falling (04/26/21) Physical Therapy Treatment Note PT-OP-A Visit Information Start: 11/23/20 13:39 Freq: Status: Active Protocol: Document 04/26/21 11:15 AMB (Rec: 04/26/21 16:32 AMB [email or web address]) Out-Patient Physical Therapy Visit Information Visit Information Visit Type Treatment Note Visit Start Time 11:15 Visit Stop Time 12:00 Total Visit Minutes 45 Visit Number 18 PT-OP-B Current Condition Start: 11/23/20 13:39 Freq: Status: Active Protocol: Document 11/23/20 14:15 AMB (Rec: 11/23/20 14:28 AMB [id number]) Current Condition History of Current Condition Onset Date years Current Complaints fall history, Parkinsons History of Current Condition Crystal returns to physical therapy to continue to reduce her fall risk. She reports a bad fall going into the shower fell in October and hit her head. Multiple other small falls. She does report that she now uses the walker in the house. Also has noticed reaching for things that are out of reach causes falls. Lives in a two story house with her . Has a walk in shower without grab bars. L shoulder pain with stretching- did have clavicle fracture that she reports healed poory- sleeping on the shoulder is challenging. Difficult to get up from the floor- does have knee pain with kneeling. No longer doing the laundry- takes it to a laundromat. No longer wearing her glasses, no longer cooks. Doing BIG exercises, reads. My doesn't let me do anything any more. Prior Treatments and Tests BIG therapy recently have continued on with exercises Treatment Goals Patient/Caregiver Goals I'd like how to use my walker better, going in and out of doorways, getting in and out of the car. Prior Functional Status Baseline Function- ADL's Modified Independent Baseline Function- Mobility Modified Independent Current Functional Impairments (Reported) Functional Limitations- ADL's No longer does laundry, no longer cooks, falls with ADLS like bathing, dressing Personal Factors Other Personal Factors That May Effect Long history of falls, vision Therapy/Recovery issues, recall issues PT-OP-C Subjective Start: 11/23/20 13:39 Freq: Status: Active Protocol: Document 04/26/21 11:15 AMB (Rec: 04/30/21 10:17 AMB [email or web address]) OP-PT Subjective Patient Comments Patient Comments Pt is getting fit for new w/c this week, reports no new falls. PT-OP-E Functional Tests Start: 11/23/20 13:39 Freq: Status: Active Protocol: Document 01/31/21 13:30 AMB (Rec: 01/31/21 15:25 AMB [id number]) Functional Tests 6 Minute Walk Test Distance 414 Device Used 4WW Comments cues for navigating Five Times Sit to Stand Test Score 40 Comments needed bilat UE support Timed Up and Go (TUG) Score 57 Comments 4WW TUG Impairment Rating 100% Impaired (Score 20) PT-OP-G Mobility & Gait Start: 11/23/20 13:39 Freq: Status: Active Protocol: Document 11/23/20 14:15 AMB (Rec: 11/23/20 15:46 AMB [email or web address]) OP Mobility Evaluation Transfers Sit to Stand Poor habits--pt tends to pull on 4WW, stop before the chair and then walk a few steps from walker to chair-- all despite extensive prior training in correct usage. OP Gait Assessment Assistive Devices Assistive Device 4 Wheeled Walker Gait Deviations General Gait Pattern Decreased Stride Length, Decreased Feet Clearance, Festinating,Lateral Trunk Lean ,Narrow Based Gait Stair Climbing Evaluation Evaluation Level of Assist On Stairs Standby Assistance Devices Stair Climbing Assistive Devices Left Railing Technique/Endurance Stair Climbing Direction Ascend and Descend Stair Climbing Technique Step to Step Number of Steps Climbed 8 PT-OP-J Posture/Palpation/Skin Start: 11/23/20 13:39 Freq: Status: Active Protocol: Document 11/23/20 14:15 AMB (Rec: 11/23/20 15:46 AMB [email or web address]) Posture Evaluation Comments Posture Comments scoliosis, tends to have severe cervical flexion PT-OP-M Strength Start: 11/23/20 13:39 Freq: Status: Active Protocol: Document 11/23/20 14:15 AMB (Rec: 11/23/20 15:46 AMB [email or web address]) Hip Strength Hip Manual Muscle Testing Right Flexion (L2) 4+ Good+ Extension (S1) 4- Good- Abduction 4 Good Left Flexion (L2) 4+ Good+ Extension (S1) 4- Good- Abduction 4 Good Knee Strength Knee Manual Muscle Testing Right Flexion (S2) 4- Good- Extension (L3) 4+ Good+ Left Flexion (S2) 4- Good- Extension (L3) 4+ Good+ PT-OP-Q Treatments Start: 11/23/20 13:39 Freq: Status: Active Protocol: Document 04/26/21 11:15 AMB (Rec: 04/30/21 10:16 AMB [email or web address]) Therapeutic Activity Therapeutic Activity 5 Name sit to stand Reps/Minutes 10x2 Comments Max cues for lean forward ascend/ descending with UE reaching back prior sit for safety guidence. Pt needed min/modA for appropriate form. 4 Name squat pivot transfer Reps/Minutes 30min Comments w/c to chair and back. Best with forward lean to reach for armrest, difficulty with forward lean when doesn't have anything specific to reach for. Gait Training Gait Activity 1 Description sit to stand then walk around cones and gym equipment Comments with 4WW- Crystal needs repeat cues for sequencing safely brake mgt after cues, safely using 4WW obstacle mgt focuses one side. PT-OP-T Assessment and Plan Start: 11/23/20 13:39 Freq: Status: Active Protocol: Document 04/26/21 11:15 AMB (Rec: 04/30/21 10:16 AMB [email or web address]) Physical Therapy Assessment Assessment Summary Assessment Crystal did well with the cue to reach forward for an armrest. when she has a goal of what to reach for her forward lean is much better with her transfers. Physical Therapy Plan Next Visit Focus/Plan Next Note Type Treatment Note Next Visit Plan Progress seated exercises for amplitude and coordination. Safety with sit to stand and transfers
--- NOTE | 2021-05-03 15:20 | PT.OTN ---
Current Diagnoses Parkinson's disease (05/03/21) Other abnormalities of gait and mobility (05/03/21) History of falling (05/03/21) Physical Therapy Treatment Note PT-OP-A Visit Information Start: 11/23/20 13:39 Freq: Status: Active Protocol: Document 05/03/21 11:15 AMB (Rec: 05/03/21 12:51 AMB [email or web address]) Out-Patient Physical Therapy Visit Information Visit Information Visit Type Treatment Note Visit Start Time 11:15 Visit Stop Time 12:00 Total Visit Minutes 45 Visit Number 19 PT-OP-B Current Condition Start: 11/23/20 13:39 Freq: Status: Active Protocol: Document 11/23/20 14:15 AMB (Rec: 11/23/20 14:28 AMB [id number]) Current Condition History of Current Condition Onset Date years Current Complaints fall history, Parkinsons History of Current Condition Crystal returns to physical therapy to continue to reduce her fall risk. She reports a bad fall going into the shower fell in October and hit her head. Multiple other small falls. She does report that she now uses the walker in the house. Also has noticed reaching for things that are out of reach causes falls. Lives in a two story house with her . Has a walk in shower without grab bars. L shoulder pain with stretching- did have clavicle fracture that she reports healed poory- sleeping on the shoulder is challenging. Difficult to get up from the floor- does have knee pain with kneeling. No longer doing the laundry- takes it to a laundromat. No longer wearing her glasses, no longer cooks. Doing BIG exercises, reads. My doesn't let me do anything any more. Prior Treatments and Tests BIG therapy recently have continued on with exercises Treatment Goals Patient/Caregiver Goals I'd like how to use my walker better, going in and out of doorways, getting in and out of the car. Prior Functional Status Baseline Function- ADL's Modified Independent Baseline Function- Mobility Modified Independent Current Functional Impairments (Reported) Functional Limitations- ADL's No longer does laundry, no longer cooks, falls with ADLS like bathing, dressing Personal Factors Other Personal Factors That May Effect Long history of falls, vision Therapy/Recovery issues, recall issues PT-OP-C Subjective Start: 11/23/20 13:39 Freq: Status: Active Protocol: Document 05/03/21 11:15 AMB (Rec: 05/03/21 15:20 AMB [email or web address]) OP-PT Subjective Patient Comments Patient Comments Wilber Rojas has not had any falls in the last week . The new w/c has been ordered. PT-OP-E Functional Tests Start: 11/23/20 13:39 Freq: Status: Active Protocol: Document 01/31/21 13:30 AMB (Rec: 01/31/21 15:25 AMB [id number]) Functional Tests 6 Minute Walk Test Distance 414 Device Used 4WW Comments cues for navigating Five Times Sit to Stand Test Score 40 Comments needed bilat UE support Timed Up and Go (TUG) Score 57 Comments 4WW TUG Impairment Rating 100% Impaired (Score 20) PT-OP-G Mobility & Gait Start: 11/23/20 13:39 Freq: Status: Active Protocol: Document 11/23/20 14:15 AMB (Rec: 11/23/20 15:46 AMB [email or web address]) OP Mobility Evaluation Transfers Sit to Stand Poor habits--pt tends to pull on 4WW, stop before the chair and then walk a few steps from walker to chair-- all despite extensive prior training in correct usage. OP Gait Assessment Assistive Devices Assistive Device 4 Wheeled Walker Gait Deviations General Gait Pattern Decreased Stride Length, Decreased Feet Clearance, Festinating,Lateral Trunk Lean ,Narrow Based Gait Stair Climbing Evaluation Evaluation Level of Assist On Stairs Standby Assistance Devices Stair Climbing Assistive Devices Left Railing Technique/Endurance Stair Climbing Direction Ascend and Descend Stair Climbing Technique Step to Step Number of Steps Climbed 8 PT-OP-J Posture/Palpation/Skin Start: 11/23/20 13:39 Freq: Status: Active Protocol: Document 11/23/20 14:15 AMB (Rec: 11/23/20 15:46 AMB [email or web address]) Posture Evaluation Comments Posture Comments scoliosis, tends to have severe cervical flexion PT-OP-M Strength Start: 11/23/20 13:39 Freq: Status: Active Protocol: Document 11/23/20 14:15 AMB (Rec: 11/23/20 15:46 AMB [email or web address]) Hip Strength Hip Manual Muscle Testing Right Flexion (L2) 4+ Good+ Extension (S1) 4- Good- Abduction 4 Good Left Flexion (L2) 4+ Good+ Extension (S1) 4- Good- Abduction 4 Good Knee Strength Knee Manual Muscle Testing Right Flexion (S2) 4- Good- Extension (L3) 4+ Good+ Left Flexion (S2) 4- Good- Extension (L3) 4+ Good+ PT-OP-Q Treatments Start: 11/23/20 13:39 Freq: Status: Active Protocol: Document 05/03/21 11:15 AMB (Rec: 05/03/21 15:20 AMB [email or web address]) Therapeutic Activity Therapeutic Activity 5 Name sit to stand Reps/Minutes 2x5 Comments Max cues for lean forward ascend/ descending with UE reaching back prior sit for safety guidence. Pt needed min/modA for appropriate form. 1 Name squat pivot transfer Reps/Minutes 10 min Comments reaching forward gave pt better lean forward Gait Training Gait Activity 1 Description sit to stand then walk around cones and gym equipment Distance/Duration 100x2 Comments with 4WW- Crystal needs repeat cues for sequencing safely brake mgt after cues, safely using 4WW obstacle mgt focuses one side. PT-OP-T Assessment and Plan Start: 11/23/20 13:39 Freq: Status: Active Protocol: Document 05/03/21 11:15 AMB (Rec: 05/03/21 15:20 AMB [email or web address]) Physical Therapy Assessment Goals Three Impairment Sit to stand Short Term Goal (STG) Crystal will improve her 5x sit to stand to 20 seconds or less . STG Duration 01/31: 40 seconds Intermediate Goal (LTG) Crystal will move from sit to stand from a low chair without UE support with good balance. LTG Duration NOT MET Two Impairment Gait Short Term Goal (STG) Crystal will walk with her 4WW for 6 minutes over smooth terrain without loss of balance or running into obstacles. STG Duration NOT MET One Impairment Fall risk Short Term Goal (STG) Crystal will decrease her timed up and go score to 30 seconds or less to show decreased risk of falling. STG Duration NOT MET Hose Mender Goal (LTG) Crystal will use her 4WW appropriately when moving from walking to sitting ( remembering to reach for chair , not leaving 4WW and walking to chair, etc.). LTG Duration NOT MET Assessment Summary Assessment Crystal did well today with reaching and increasing her forward lean. Physical Therapy Plan Next Visit Focus/Plan Next Note Type Progress Note Next Visit Plan Reassess goals
--- NOTE | 2021-05-10 16:10 | PT.OTN ---
Current Diagnoses Parkinson's disease (05/10/21) Other abnormalities of gait and mobility (05/10/21) History of falling (05/10/21) Physical Therapy Treatment Note PT-OP-A Visit Information Start: 11/23/20 13:39 Freq: Status: Active Protocol: Document 05/10/21 11:15 AMB (Rec: 05/10/21 16:08 AMB [email or web address]) Out-Patient Physical Therapy Visit Information Visit Information Visit Type Progress Note Visit Start Time 11:15 Visit Stop Time 12:00 Total Visit Minutes 45 Visit Number 20 PT-OP-B Current Condition Start: 11/23/20 13:39 Freq: Status: Active Protocol: Document 11/23/20 14:15 AMB (Rec: 11/23/20 14:28 AMB [id number]) Current Condition History of Current Condition Onset Date years Current Complaints fall history, Parkinsons History of Current Condition Crystal returns to physical therapy to continue to reduce her fall risk. She reports a bad fall going into the shower fell in October and hit her head. Multiple other small falls. She does report that she now uses the walker in the house. Also has noticed reaching for things that are out of reach causes falls. Lives in a two story house with her . Has a walk in shower without grab bars. L shoulder pain with stretching- did have clavicle fracture that she reports healed poory- sleeping on the shoulder is challenging. Difficult to get up from the floor- does have knee pain with kneeling. No longer doing the laundry- takes it to a laundromat. No longer wearing her glasses, no longer cooks. Doing BIG exercises, reads. My doesn't let me do anything any more. Prior Treatments and Tests BIG therapy recently have continued on with exercises Treatment Goals Patient/Caregiver Goals I'd like how to use my walker better, going in and out of doorways, getting in and out of the car. Prior Functional Status Baseline Function- ADL's Modified Independent Baseline Function- Mobility Modified Independent Current Functional Impairments (Reported) Functional Limitations- ADL's No longer does laundry, no longer cooks, falls with ADLS like bathing, dressing Personal Factors Other Personal Factors That May Effect Long history of falls, vision Therapy/Recovery issues, recall issues PT-OP-C Subjective Start: 11/23/20 13:39 Freq: Status: Active Protocol: Document 05/10/21 11:15 AMB (Rec: 05/10/21 16:08 AMB [email or web address]) OP-PT Subjective Patient Comments Patient Comments No new falls, got a new transport chair that fits her better, still waiting on new w /c PT-OP-E Functional Tests Start: 11/23/20 13:39 Freq: Status: Active Protocol: Document 05/10/21 11:15 AMB (Rec: 05/10/21 16:08 AMB [email or web address]) Functional Tests Timed Up and Go (TUG) Score 1 minute 53 seconds Comments 4WW TUG Impairment Rating 100% Impaired (Score 20) PT-OP-G Mobility & Gait Start: 11/23/20 13:39 Freq: Status: Active Protocol: Document 11/23/20 14:15 AMB (Rec: 11/23/20 15:46 AMB [email or web address]) OP Mobility Evaluation Transfers Sit to Stand Poor habits--pt tends to pull on 4WW, stop before the chair and then walk a few steps from walker to chair-- all despite extensive prior training in correct usage. OP Gait Assessment Assistive Devices Assistive Device 4 Wheeled Walker Gait Deviations General Gait Pattern Decreased Stride Length, Decreased Feet Clearance, Festinating,Lateral Trunk Lean ,Narrow Based Gait Stair Climbing Evaluation Evaluation Level of Assist On Stairs Standby Assistance Devices Stair Climbing Assistive Devices Left Railing Technique/Endurance Stair Climbing Direction Ascend and Descend Stair Climbing Technique Step to Step Number of Steps Climbed 8 PT-OP-J Posture/Palpation/Skin Start: 11/23/20 13:39 Freq: Status: Active Protocol: Document 11/23/20 14:15 AMB (Rec: 11/23/20 15:46 AMB [email or web address]) Posture Evaluation Comments Posture Comments scoliosis, tends to have severe cervical flexion PT-OP-M Strength Start: 11/23/20 13:39 Freq: Status: Active Protocol: Document 11/23/20 14:15 AMB (Rec: 11/23/20 15:46 AMB [email or web address]) Hip Strength Hip Manual Muscle Testing Right Flexion (L2) 4+ Good+ Extension (S1) 4- Good- Abduction 4 Good Left Flexion (L2) 4+ Good+ Extension (S1) 4- Good- Abduction 4 Good Knee Strength Knee Manual Muscle Testing Right Flexion (S2) 4- Good- Extension (L3) 4+ Good+ Left Flexion (S2) 4- Good- Extension (L3) 4+ Good+ PT-OP-Q Treatments Start: 11/23/20 13:39 Freq: Status: Active Protocol: Document 05/10/21 11:15 AMB (Rec: 05/10/21 16:08 AMB [email or web address]) Therapeutic Activity Therapeutic Activity 5 Name sit to stand Reps/Minutes 2x5 Comments Max cues for lean forward ascend/ descending with UE reaching back prior sit for safety guidence. Pt needed min/modA for appropriate form. 1 Name squat pivot transfer Reps/Minutes 10 min Comments reaching forward gave pt better lean forward Gait Training Gait Activity 1 Description sit to stand then walk around cones and gym equipment Distance/Duration TUG x 3 Comments with 4WW- Crystal needs repeat cues for sequencing safely brake mgt after cues, safely using 4WW obstacle mgt focuses one side. - significant difficulty motor planning stand to sit today. PT-OP-T Assessment and Plan Start: 11/23/20 13:39 Freq: Status: Active Protocol: Document 05/10/21 11:15 AMB (Rec: 05/10/21 16:08 AMB [email or web address]) Physical Therapy Assessment Goals Three Impairment SIT TO STAND Short Term Goal (STG) NEW GOAL: Crystal will move from sit to stand and stand to sit with Milton and good forward lean without heavy posterior LOB. STG Duration 4 weeks Two Short Term Goal (STG) NEW GOAL Crystal will walk with a 4WW for 100' with CGA over smooth terrain without LOB. STG Duration 4 weeks One Impairment Transfers Short Term Goal (STG) NEW GOAL: Crystal will perform a squat pivot transfer with Milton. STG Duration 4 weeks Mcc Goal (LTG) NEW GOAL: Crystal and Wilber will perform a squat pivot transfer with good body mechanics. LTG Duration 8 weeks Assessment Summary Assessment Due to the progressive nature of Crystal's disease, we updated her goals today to be more appropriate for her functional level. Her TUG Score unfortuantely progressed from 54 seconds to 1 minute 54seconds. She is not really ambulating at home any more, so we are more focused on transfer safety. Her retropulsion has significnatly increased, and while she cognitively understands it is difficult for her to put the forward lean into practice. Physical Therapy Plan Frequency and Duration Frequency of Treatment 1x/Week Duration of Treatment 8 weeks Plan of Care Start Date 05/10/21 Plan of Care End Date 07/05/21 Next Visit Focus/Plan Next Note Type Treatment Note Next Visit Plan Progress transfer safety, promote forward lean
--- NOTE | 2021-05-10 16:11 | PT.OPPOC ---
Physical, Occupational & Speech Therapy At [facility] Current Diagnoses Parkinson's disease (05/10/21) Other abnormalities of gait and mobility (05/10/21) History of falling (05/10/21) Visit Care Team Role Provider Type Helen Burroughs MD Family Provider Physician Primary Care Provider Specialty: Internal Medicine Address: [address] [place] [address], [facility] Email: [email or web address]ending Provider Referring Provider Specialty: Address: Phone: Fax: Email: Plan Of Care PT-OP-T Assessment and Plan Start: 11/23/20 13:39 Freq: Status: Active Protocol: Document 05/10/21 11:15 AMB (Rec: 05/10/21 16:08 AMB [email or web address]) Physical Therapy Assessment Goals Three Impairment SIT TO STAND Short Term Goal (STG) NEW GOAL: Crystal will move from sit to stand and stand to sit with Milton and good forward lean without heavy posterior LOB. STG Duration 4 weeks Two Short Term Goal (STG) NEW GOAL Crystal will walk with a 4WW for 100' with CGA over smooth terrain without LOB. STG Duration 4 weeks One Impairment Transfers Short Term Goal (STG) NEW GOAL: Crystal will perform a squat pivot transfer with Milton. STG Duration 4 weeks Usp Goal (LTG) NEW GOAL: Crystal and Wilber will perform a squat pivot transfer with good body mechanics. LTG Duration 8 weeks Assessment Summary Assessment Due to the progressive nature of Crystal's disease, we updated her goals today to be more appropriate for her functional level. Her TUG Score unfortunately progressed from 54 seconds to 1 minute 54seconds. She is not really ambulating at home any more, so we are more focused on transfer safety. Her retropulsion has significantly increased, and while she cognitively understands it is difficult for her to put the forward lean into practice. Physical Therapy Plan Frequency and Duration Frequency of Treatment 1x/Week Duration of Treatment 8 weeks Plan of Care Start Date 05/10/21 Plan of Care End Date 07/05/21 Next Visit Focus/Plan Next Note Type Treatment Note Next Visit Plan Progress transfer safety, promote forward lean Plan of Care Dates Plan of Care Start Date 05/10/21 Plan of Care End Date 07/05/21 Electronically Signed by: Maribel Fernández, PT 05/10/21 [id number] Please Sign and Return: I have reviewed this Plan of Care and certify that the skilled therapy services above are required to meet the patient?s needs. Physician Signature Date Printed Name and Credentials Clinical Instructor Signature Printed Name and Credentials
--- NOTE | 2021-05-31 15:35 | PT.OTN ---
Current Diagnoses Parkinson's disease (05/31/21) Other abnormalities of gait and mobility (05/31/21) History of falling (05/31/21) Physical Therapy Treatment Note PT-OP-A Visit Information Start: 11/23/20 13:39 Freq: Status: Active Protocol: Document 05/31/21 14:35 AMB (Rec: 05/31/21 15:28 AMB [id number]) Out-Patient Physical Therapy Visit Information Visit Information Visit Type Treatment Note Visit Start Time 14:30 Visit Stop Time 15:15 Total Visit Minutes 45 Visit Number 21 PT-OP-B Current Condition Start: 11/23/20 13:39 Freq: Status: Active Protocol: Document 11/23/20 14:15 AMB (Rec: 11/23/20 14:28 AMB [id number]) Current Condition History of Current Condition Onset Date years Current Complaints fall history, Parkinsons History of Current Condition Crystal returns to physical therapy to continue to reduce her fall risk. She reports a bad fall going into the shower fell in October and hit her head. Multiple other small falls. She does report that she now uses the walker in the house. Also has noticed reaching for things that are out of reach causes falls. Lives in a two story house with her . Has a walk in shower without grab bars. L shoulder pain with stretching- did have clavicle fracture that she reports healed poory- sleeping on the shoulder is challenging. Difficult to get up from the floor- does have knee pain with kneeling. No longer doing the laundry- takes it to a laundromat. No longer wearing her glasses, no longer cooks. Doing BIG exercises, reads. My doesn't let me do anything any more. Prior Treatments and Tests BIG therapy recently have continued on with exercises Treatment Goals Patient/Caregiver Goals I'd like how to use my walker better, going in and out of doorways, getting in and out of the car. Prior Functional Status Baseline Function- ADL's Modified Independent Baseline Function- Mobility Modified Independent Current Functional Impairments (Reported) Functional Limitations- ADL's No longer does laundry, no longer cooks, falls with ADLS like bathing, dressing Personal Factors Other Personal Factors That May Effect Long history of falls, vision Therapy/Recovery issues, recall issues PT-OP-C Subjective Start: 11/23/20 13:39 Freq: Status: Active Protocol: Document 05/31/21 14:35 AMB (Rec: 05/31/21 15:28 AMB [id number]) OP-PT Subjective Patient Comments Patient Comments Pt fell was in the bathroom, standing at the bathroom sink. Wilber helped get off floor. Happened on Saturday and didn' t hurt herself. Was alone in the bathroom and decided to stand up alone. PT-OP-E Functional Tests Start: 11/23/20 13:39 Freq: Status: Active Protocol: Document 05/10/21 11:15 AMB (Rec: 05/10/21 16:08 AMB [email or web address]) Functional Tests Timed Up and Go (TUG) Score 1 minute 53 seconds Comments 4WW TUG Impairment Rating 100% Impaired (Score 20) PT-OP-G Mobility & Gait Start: 11/23/20 13:39 Freq: Status: Active Protocol: Document 11/23/20 14:15 AMB (Rec: 11/23/20 15:46 AMB [email or web address]) OP Mobility Evaluation Transfers Sit to Stand Poor habits--pt tends to pull on 4WW, stop before the chair and then walk a few steps from walker to chair-- all despite extensive prior training in correct usage. OP Gait Assessment Assistive Devices Assistive Device 4 Wheeled Walker Gait Deviations General Gait Pattern Decreased Stride Length, Decreased Feet Clearance, Festinating,Lateral Trunk Lean ,Narrow Based Gait Stair Climbing Evaluation Evaluation Level of Assist On Stairs Standby Assistance Devices Stair Climbing Assistive Devices Left Railing Technique/Endurance Stair Climbing Direction Ascend and Descend Stair Climbing Technique Step to Step Number of Steps Climbed 8 PT-OP-J Posture/Palpation/Skin Start: 11/23/20 13:39 Freq: Status: Active Protocol: Document 11/23/20 14:15 AMB (Rec: 11/23/20 15:46 AMB [email or web address]) Posture Evaluation Comments Posture Comments scoliosis, tends to have severe cervical flexion PT-OP-M Strength Start: 11/23/20 13:39 Freq: Status: Active Protocol: Document 11/23/20 14:15 AMB (Rec: 11/23/20 15:46 AMB [email or web address]) Hip Strength Hip Manual Muscle Testing Right Flexion (L2) 4+ Good+ Extension (S1) 4- Good- Abduction 4 Good Left Flexion (L2) 4+ Good+ Extension (S1) 4- Good- Abduction 4 Good Knee Strength Knee Manual Muscle Testing Right Flexion (S2) 4- Good- Extension (L3) 4+ Good+ Left Flexion (S2) 4- Good- Extension (L3) 4+ Good+ PT-OP-Q Treatments Start: 11/23/20 13:39 Freq: Status: Active Protocol: Document 05/31/21 14:15 AMB (Rec: 05/31/21 15:35 AMB [email or web address]) Therapeutic Exercises Supine Exercises 3 Supine Exercise Name adductor stretch Reps/Minutes 30x3 2 Supine Exercise Name LTR Reps/Minutes 10 1 Supine Exercise Name Bridging Reps/Minutes 2x10 Therapeutic Activity Therapeutic Activity 5 Name sit to stand Reps/Minutes 2x5 Comments Max cues for lean forward ascend/ descending with UE reaching back prior sit for safety guidence. Pt needed min/modA for appropriate form. 1 Name squat pivot transfer Reps/Minutes 10 min Comments reaching forward gave pt better lean forward Gait Training Gait Activity 4 Description walking: backing up and turning Comments with 4WW - managing backing up into chair 2 Description indoor walking Distance/Duration 150 ft Comments heavy cues for navigation-4WW PT-OP-T Assessment and Plan Start: 11/23/20 13:39 Freq: Status: Active Protocol: Document 05/31/21 14:35 AMB (Rec: 05/31/21 15:28 AMB [id number]) Physical Therapy Assessment Goals Three Impairment SIT TO STAND Short Term Goal (STG) NEW GOAL: Crystal will move from sit to stand and stand to sit with Milton and good forward lean without heavy posterior LOB. STG Duration 4 weeks Two Short Term Goal (STG) NEW GOAL Crystal will walk with a 4WW for 100' with CGA over smooth terrain without LOB. STG Duration 4 weeks One Impairment Transfers Short Term Goal (STG) NEW GOAL: Crystal will perform a squat pivot transfer with Milton. STG Duration 4 weeks Registered Nurses Goal (LTG) NEW GOAL: Crystal and Wilber will perform a squat pivot transfer with good body mechanics. LTG Duration 8 weeks Assessment Summary Assessment Crystal is having a difficult time with forward lean. Pt is having a difficult time with feeling slow. She cognitively knows she is declining and this is frustrating. Physical Therapy Plan Next Visit Focus/Plan Next Note Type Treatment Note Next Visit Plan Progress transfer safety, promote forward lean
--- NOTE | 2021-06-07 15:48 | PT.OTN ---
Current Diagnoses Parkinson's disease (06/07/21) Other abnormalities of gait and mobility (06/07/21) History of falling (06/07/21) Physical Therapy Treatment Note PT-OP-A Visit Information Start: 11/23/20 13:39 Freq: Status: Active Protocol: Document 06/07/21 13:45 AMB (Rec: 06/07/21 15:48 AMB [email or web address]) Out-Patient Physical Therapy Visit Information Visit Information Visit Type Treatment Note Visit Start Time 13:45 Visit Stop Time 14:30 Total Visit Minutes 45 Visit Number 22 PT-OP-B Current Condition Start: 11/23/20 13:39 Freq: Status: Active Protocol: Document 11/23/20 14:15 AMB (Rec: 11/23/20 14:28 AMB [id number]) Current Condition History of Current Condition Onset Date years Current Complaints fall history, Parkinsons History of Current Condition Crystal returns to physical therapy to continue to reduce her fall risk. She reports a bad fall going into the shower fell in October and hit her head. Multiple other small falls. She does report that she now uses the walker in the house. Also has noticed reaching for things that are out of reach causes falls. Lives in a two story house with her . Has a walk in shower without grab bars. L shoulder pain with stretching- did have clavicle fracture that she reports healed poory- sleeping on the shoulder is challenging. Difficult to get up from the floor- does have knee pain with kneeling. No longer doing the laundry- takes it to a laundromat. No longer wearing her glasses, no longer cooks. Doing BIG exercises, reads. My doesn't let me do anything any more. Prior Treatments and Tests BIG therapy recently have continued on with exercises Treatment Goals Patient/Caregiver Goals I'd like how to use my walker better, going in and out of doorways, getting in and out of the car. Prior Functional Status Baseline Function- ADL's Modified Independent Baseline Function- Mobility Modified Independent Current Functional Impairments (Reported) Functional Limitations- ADL's No longer does laundry, no longer cooks, falls with ADLS like bathing, dressing Personal Factors Other Personal Factors That May Effect Long history of falls, vision Therapy/Recovery issues, recall issues PT-OP-C Subjective Start: 11/23/20 13:39 Freq: Status: Active Protocol: Document 06/07/21 13:45 AMB (Rec: 06/07/21 15:48 AMB [email or web address]) OP-PT Subjective Patient Comments Patient Comments Pt does not have any falls to report. She states she is doing well. PT-OP-E Functional Tests Start: 11/23/20 13:39 Freq: Status: Active Protocol: Document 05/10/21 11:15 AMB (Rec: 05/10/21 16:08 AMB [email or web address]) Functional Tests Timed Up and Go (TUG) Score 1 minute 53 seconds Comments 4WW TUG Impairment Rating 100% Impaired (Score 20) PT-OP-G Mobility & Gait Start: 11/23/20 13:39 Freq: Status: Active Protocol: Document 11/23/20 14:15 AMB (Rec: 11/23/20 15:46 AMB [email or web address]) OP Mobility Evaluation Transfers Sit to Stand Poor habits--pt tends to pull on 4WW, stop before the chair and then walk a few steps from walker to chair-- all despite extensive prior training in correct usage. OP Gait Assessment Assistive Devices Assistive Device 4 Wheeled Walker Gait Deviations General Gait Pattern Decreased Stride Length, Decreased Feet Clearance, Festinating,Lateral Trunk Lean ,Narrow Based Gait Stair Climbing Evaluation Evaluation Level of Assist On Stairs Standby Assistance Devices Stair Climbing Assistive Devices Left Railing Technique/Endurance Stair Climbing Direction Ascend and Descend Stair Climbing Technique Step to Step Number of Steps Climbed 8 PT-OP-J Posture/Palpation/Skin Start: 11/23/20 13:39 Freq: Status: Active Protocol: Document 11/23/20 14:15 AMB (Rec: 11/23/20 15:46 AMB [email or web address]) Posture Evaluation Comments Posture Comments scoliosis, tends to have severe cervical flexion PT-OP-M Strength Start: 11/23/20 13:39 Freq: Status: Active Protocol: Document 11/23/20 14:15 AMB (Rec: 11/23/20 15:46 AMB [email or web address]) Hip Strength Hip Manual Muscle Testing Right Flexion (L2) 4+ Good+ Extension (S1) 4- Good- Abduction 4 Good Left Flexion (L2) 4+ Good+ Extension (S1) 4- Good- Abduction 4 Good Knee Strength Knee Manual Muscle Testing Right Flexion (S2) 4- Good- Extension (L3) 4+ Good+ Left Flexion (S2) 4- Good- Extension (L3) 4+ Good+ PT-OP-Q Treatments Start: 11/23/20 13:39 Freq: Status: Active Protocol: Document 06/07/21 13:45 AMB (Rec: 06/07/21 15:48 AMB [email or web address]) Therapeutic Exercises Supine Exercises 3 Supine Exercise Name adductor stretch Reps/Minutes 30x3 2 Supine Exercise Name LTR Reps/Minutes 10 Sidelying Exercises open book Resistance 10 ea side Comments Milton for setup Gait Training Gait Activity 4 Description walking: backing up and turning Comments with 4WW - managing backing up into chair- min/modA 2 Description indoor walking Distance/Duration 150 ft Comments heavy cues for navigation-4WW Min/ModA for safety PT-OP-T Assessment and Plan Start: 11/23/20 13:39 Freq: Status: Active Protocol: Document 06/07/21 13:45 AMB (Rec: 06/07/21 15:48 AMB [email or web address]) Physical Therapy Assessment Goals Three Impairment SIT TO STAND Short Term Goal (STG) NEW GOAL: Crystal will move from sit to stand and stand to sit with Milton and good forward lean without heavy posterior LOB. STG Duration 4 weeks Two Short Term Goal (STG) NEW GOAL Crystal will walk with a 4WW for 100' with CGA over smooth terrain without LOB. STG Duration 4 weeks One Impairment Transfers Short Term Goal (STG) NEW GOAL: Crystal will perform a squat pivot transfer with Milton. STG Duration 4 weeks Compressor Station Operator Goal (LTG) NEW GOAL: Crystal and Wilber will perform a squat pivot transfer with good body mechanics. LTG Duration 8 weeks Assessment Summary Assessment Crystal did well with stretches, but continues to need Milton for gait safety, starting to get into ModA really. Physical Therapy Plan Next Visit Focus/Plan Next Note Type Treatment Note Next Visit Plan Progress transfer safety, promote forward lean
--- NOTE | 2021-06-14 15:34 | PT.OTN ---
Current Diagnoses Parkinson's disease (06/14/21) Other abnormalities of gait and mobility (06/14/21) History of falling (06/14/21) Physical Therapy Treatment Note PT-OP-A Visit Information Start: 11/23/20 13:39 Freq: Status: Active Protocol: Document 06/14/21 10:30 AMB (Rec: 06/14/21 11:19 AMB [id number]) Out-Patient Physical Therapy Visit Information Visit Information Visit Type Treatment Note Visit Start Time 10:30 Visit Stop Time 11:15 Total Visit Minutes 45 Visit Number 23 PT-OP-B Current Condition Start: 11/23/20 13:39 Freq: Status: Active Protocol: Document 11/23/20 14:15 AMB (Rec: 11/23/20 14:28 AMB [id number]) Current Condition History of Current Condition Onset Date years Current Complaints fall history, Parkinsons History of Current Condition Crystal returns to physical therapy to continue to reduce her fall risk. She reports a bad fall going into the shower fell in October and hit her head. Multiple other small falls. She does report that she now uses the walker in the house. Also has noticed reaching for things that are out of reach causes falls. Lives in a two story house with her . Has a walk in shower without grab bars. L shoulder pain with stretching- did have clavicle fracture that she reports healed poory- sleeping on the shoulder is challenging. Difficult to get up from the floor- does have knee pain with kneeling. No longer doing the laundry- takes it to a laundromat. No longer wearing her glasses, no longer cooks. Doing BIG exercises, reads. My doesn't let me do anything any more. Prior Treatments and Tests BIG therapy recently have continued on with exercises Treatment Goals Patient/Caregiver Goals I'd like how to use my walker better, going in and out of doorways, getting in and out of the car. Prior Functional Status Baseline Function- ADL's Modified Independent Baseline Function- Mobility Modified Independent Current Functional Impairments (Reported) Functional Limitations- ADL's No longer does laundry, no longer cooks, falls with ADLS like bathing, dressing Personal Factors Other Personal Factors That May Effect Long history of falls, vision Therapy/Recovery issues, recall issues PT-OP-C Subjective Start: 11/23/20 13:39 Freq: Status: Active Protocol: Document 06/14/21 10:30 AMB (Rec: 06/14/21 11:19 AMB [id number]) OP-PT Subjective Patient Comments Patient Comments Pt reports fall yesterday, was trying to walk, does report understanding that she shouldn 't do that. PT-OP-E Functional Tests Start: 11/23/20 13:39 Freq: Status: Active Protocol: Document 05/10/21 11:15 AMB (Rec: 05/10/21 16:08 AMB [email or web address]) Functional Tests Timed Up and Go (TUG) Score 1 minute 53 seconds Comments 4WW TUG Impairment Rating 100% Impaired (Score 20) PT-OP-G Mobility & Gait Start: 11/23/20 13:39 Freq: Status: Active Protocol: Document 11/23/20 14:15 AMB (Rec: 11/23/20 15:46 AMB [email or web address]) OP Mobility Evaluation Transfers Sit to Stand Poor habits--pt tends to pull on 4WW, stop before the chair and then walk a few steps from walker to chair-- all despite extensive prior training in correct usage. OP Gait Assessment Assistive Devices Assistive Device 4 Wheeled Walker Gait Deviations General Gait Pattern Decreased Stride Length, Decreased Feet Clearance, Festinating,Lateral Trunk Lean ,Narrow Based Gait Stair Climbing Evaluation Evaluation Level of Assist On Stairs Standby Assistance Devices Stair Climbing Assistive Devices Left Railing Technique/Endurance Stair Climbing Direction Ascend and Descend Stair Climbing Technique Step to Step Number of Steps Climbed 8 PT-OP-J Posture/Palpation/Skin Start: 11/23/20 13:39 Freq: Status: Active Protocol: Document 11/23/20 14:15 AMB (Rec: 11/23/20 15:46 AMB [email or web address]) Posture Evaluation Comments Posture Comments scoliosis, tends to have severe cervical flexion PT-OP-M Strength Start: 11/23/20 13:39 Freq: Status: Active Protocol: Document 11/23/20 14:15 AMB (Rec: 11/23/20 15:46 AMB [email or web address]) Hip Strength Hip Manual Muscle Testing Right Flexion (L2) 4+ Good+ Extension (S1) 4- Good- Abduction 4 Good Left Flexion (L2) 4+ Good+ Extension (S1) 4- Good- Abduction 4 Good Knee Strength Knee Manual Muscle Testing Right Flexion (S2) 4- Good- Extension (L3) 4+ Good+ Left Flexion (S2) 4- Good- Extension (L3) 4+ Good+ PT-OP-Q Treatments Start: 11/23/20 13:39 Freq: Status: Active Protocol: Document 06/14/21 10:30 AMB (Rec: 06/14/21 11:19 AMB [id number]) Therapeutic Exercises Sitting Exercises 5 Sitting Exercise Name thoracic rotation Reps/Minutes 10 4 Sitting Exercise Name thoracic extension Reps/Minutes 10 3 Sitting Exercise Name forward lean Reps/Minutes 10 Therapeutic Activity Therapeutic Activity 5 Name sit to stand Reps/Minutes 2x5 Comments Max cues for lean forward ascend/ descending with UE reaching back prior sit for safety guidence. Pt needed min/modA for appropriate form. PT-OP-T Assessment and Plan Start: 11/23/20 13:39 Freq: Status: Active Protocol: Document 06/14/21 10:30 AMB (Rec: 06/14/21 15:28 AMB [email or web address]) Physical Therapy Assessment Goals Three Impairment SIT TO STAND Short Term Goal (STG) NEW GOAL: Crystal will move from sit to stand and stand to sit with Milton and good forward lean without heavy posterior LOB. STG Duration 4 weeks Two Short Term Goal (STG) NEW GOAL Crystal will walk with a 4WW for 100' with CGA over smooth terrain without LOB. STG Duration 4 weeks One Impairment Transfers Short Term Goal (STG) NEW GOAL: Crystal will perform a squat pivot transfer with Milton. STG Duration 4 weeks [employer] Goal (LTG) NEW GOAL: Crystal and Wilber will perform a squat pivot transfer with good body mechanics. LTG Duration 8 weeks Assessment Summary Assessment Crystal continues to struggle with sit to stand and sequencing of motor tasks. Continues to need heavy verbal cues and displays poor decision making ability as shown by her decision to try to walk at home. She is able to exercise and transfer with patient consistent cues. Physical Therapy Plan Next Visit Focus/Plan Next Note Type Treatment Note Next Visit Plan Progress transfer safety, promote forward lean
--- NOTE | 2021-06-30 16:00 | PT.OTN ---
Current Diagnoses Parkinson's disease (06/29/21) Other abnormalities of gait and mobility (06/29/21) History of falling (06/29/21) Physical Therapy Treatment Note PT-OP-A Visit Information Start: 11/23/20 13:39 Freq: Status: Active Protocol: Document 06/29/21 09:45 AMB (Rec: 06/29/21 16:19 AMB [id number]) Out-Patient Physical Therapy Visit Information Visit Information Visit Type Progress Note Visit Start Time 09:45 Visit Stop Time 10:30 Total Visit Minutes 45 Visit Number 24 PT-OP-B Current Condition Start: 11/23/20 13:39 Freq: Status: Active Protocol: Document 11/23/20 14:15 AMB (Rec: 11/23/20 14:28 AMB [id number]) Current Condition History of Current Condition Onset Date years Current Complaints fall history, Parkinsons History of Current Condition Crystal returns to physical therapy to continue to reduce her fall risk. She reports a bad fall going into the shower fell in October and hit her head. Multiple other small falls. She does report that she now uses the walker in the house. Also has noticed reaching for things that are out of reach causes falls. Lives in a two story house with her . Has a walk in shower without grab bars. L shoulder pain with stretching- did have clavicle fracture that she reports healed poory- sleeping on the shoulder is challenging. Difficult to get up from the floor- does have knee pain with kneeling. No longer doing the laundry- takes it to a laundromat. No longer wearing her glasses, no longer cooks. Doing BIG exercises, reads. My doesn't let me do anything any more. Prior Treatments and Tests BIG therapy recently have continued on with exercises Treatment Goals Patient/Caregiver Goals I'd like how to use my walker better, going in and out of doorways, getting in and out of the car. Prior Functional Status Baseline Function- ADL's Modified Independent Baseline Function- Mobility Modified Independent Current Functional Impairments (Reported) Functional Limitations- ADL's No longer does laundry, no longer cooks, falls with ADLS like bathing, dressing Personal Factors Other Personal Factors That May Effect Long history of falls, vision Therapy/Recovery issues, recall issues PT-OP-C Subjective Start: 11/23/20 13:39 Freq: Status: Active Protocol: Document 06/29/21 09:45 AMB (Rec: 06/29/21 16:19 AMB [id number]) OP-PT Subjective Patient Comments Patient Comments Wilber states pt has caregiver coming 3x/week for a couple hours to help with showers/ chores around the house. PT-OP-E Functional Tests Start: 11/23/20 13:39 Freq: Status: Active Protocol: Document 05/10/21 11:15 AMB (Rec: 05/10/21 16:08 AMB [email or web address]) Functional Tests Timed Up and Go (TUG) Score 1 minute 53 seconds Comments 4WW TUG Impairment Rating 100% Impaired (Score 20) PT-OP-G Mobility & Gait Start: 11/23/20 13:39 Freq: Status: Active Protocol: Document 11/23/20 14:15 AMB (Rec: 11/23/20 15:46 AMB [email or web address]) OP Mobility Evaluation Transfers Sit to Stand Poor habits--pt tends to pull on 4WW, stop before the chair and then walk a few steps from walker to chair-- all despite extensive prior training in correct usage. OP Gait Assessment Assistive Devices Assistive Device 4 Wheeled Walker Gait Deviations General Gait Pattern Decreased Stride Length, Decreased Feet Clearance, Festinating,Lateral Trunk Lean ,Narrow Based Gait Stair Climbing Evaluation Evaluation Level of Assist On Stairs Standby Assistance Devices Stair Climbing Assistive Devices Left Railing Technique/Endurance Stair Climbing Direction Ascend and Descend Stair Climbing Technique Step to Step Number of Steps Climbed 8 PT-OP-J Posture/Palpation/Skin Start: 11/23/20 13:39 Freq: Status: Active Protocol: Document 11/23/20 14:15 AMB (Rec: 11/23/20 15:46 AMB [email or web address]) Posture Evaluation Comments Posture Comments scoliosis, tends to have severe cervical flexion PT-OP-M Strength Start: 11/23/20 13:39 Freq: Status: Active Protocol: Document 11/23/20 14:15 AMB (Rec: 11/23/20 15:46 AMB [email or web address]) Hip Strength Hip Manual Muscle Testing Right Flexion (L2) 4+ Good+ Extension (S1) 4- Good- Abduction 4 Good Left Flexion (L2) 4+ Good+ Extension (S1) 4- Good- Abduction 4 Good Knee Strength Knee Manual Muscle Testing Right Flexion (S2) 4- Good- Extension (L3) 4+ Good+ Left Flexion (S2) 4- Good- Extension (L3) 4+ Good+ PT-OP-Q Treatments Start: 11/23/20 13:39 Freq: Status: Active Protocol: Document 06/29/21 09:45 AMB (Rec: 06/29/21 16:19 AMB [id number]) Therapeutic Activity Therapeutic Activity 5 Name sit to stand Reps/Minutes 2x5 Comments Max cues for lean forward ascend/ descending with UE reaching back prior sit for safety guidence. Pt needed min/modA for appropriate form. 4 Name stand pivot transfer R and L Reps/Minutes 4 Comments Milton for transfer until sitting down then ModA Gait Training Gait Activity 4 Description walking: backing up and turning Comments with 4WW - managing backing up into chair- min/modA- pt tends to lose balance posteriorly with taking steps backwards 2 Description indoor walking Distance/Duration 150 ft Comments heavy cues for navigation-4WW MinAfor safety Neuro Re-Education Treatment Other Activities 1 Details seated floor to ceiling Reps/Duration 5 3 Details seated vahid to side Reps/Duration 5 PT-OP-T Assessment and Plan Start: 11/23/20 13:39 Freq: Status: Active Protocol: Document 06/29/21 09:50 AMB (Rec: 06/29/21 10:21 AMB [id number]) Physical Therapy Assessment Goals Three Impairment SIT TO STAND Short Term Goal (STG) Crystal will move from sit to stand and stand to sit with Milton and good forward lean without heavy posterior LOB. STG Duration PROGRESS MADE- can do sit to stand but stand to sit loses balance post Two Short Term Goal (STG) Crystal will walk with a 4WW for 100' with CGA over smooth terrain without LOB. STG Duration PROGRESS MADE- Milton for navigation, walker management One Impairment Transfers Short Term Goal (STG) Crystal will perform a squat pivot transfer with Milton. STG Duration 4 weeks Intermediate Goal (LTG) Crystal and Wilber will perform a squat pivot transfer with good body mechanics. LTG Duration 8 weeks Assessment Summary Assessment Crystal is continuing to lose her balance backwards with sit to stand despite extended time spent in therapy on this. She is falling less at home, but this is mostly because she is doing less. Her has gotten a caregiver for shower assistance. Crystal continues to use her transport chair which does not have adequate anti tip bars because the wheelchair that she has is too wide for her to get into her bathroom. Will discuss with her OT further. Physical therapy has focused on safe transfers and mobility preservation considering the progressive degenerative nature of her disease. Physical Therapy Plan Frequency and Duration Frequency of Treatment 1x/Week Duration of Treatment 12 weeks Plan of Care Start Date 06/29/21 Plan of Care End Date 09/21/21 Therapeutic Interventions Therapeutic Interventions Balance Training,Gait Training ,Home Exercise Program,Manual Therapy,Neuromuscular Re- education,Self-Care/Home Management,Therapeutic Activities,Therapeutic Exercises Next Visit Focus/Plan Next Note Type Treatment Note Next Visit Plan Progress forward lean with transfers, gait.
--- NOTE | 2021-06-30 16:00 | PT.OPPOC ---
Physical, Occupational & Speech Therapy At [facility] Current Diagnoses Parkinson's disease (06/29/21) Other abnormalities of gait and mobility (06/29/21) History of falling (06/29/21) Visit Care Team Role Provider Type Helen Burroughs MD Family Provider Physician Primary Care Provider Specialty: Internal Medicine Address: [address] [place] [address], [facility] Email: [email or web address] Attending Provider Referring Provider Specialty: Address: Phone: Fax: Email: Plan Of Care PT-OP-T Assessment and Plan Start: 11/23/20 13:39 Freq: Status: Active Protocol: Document 06/29/21 09:50 AMB (Rec: 06/29/21 10:21 AMB [id number]) Physical Therapy Assessment Goals Three Impairment SIT TO STAND Short Term Goal (STG) Crystal will move from sit to stand and stand to sit with Milton and good forward lean without heavy posterior LOB. STG Duration PROGRESS MADE- can do sit to stand but stand to sit loses balance post Two Short Term Goal (STG) Crystal will walk with a 4WW for 100' with CGA over smooth terrain without LOB. STG Duration PROGRESS MADE- Milton for navigation, walker management One Impairment Transfers Short Term Goal (STG) Crystal will perform a squat pivot transfer with Milton. STG Duration 4 weeks Test Driller Goal (LTG) Crystal and Wilber will perform a squat pivot transfer with good body mechanics. LTG Duration 8 weeks Assessment Summary Assessment Crystal is continuing to lose her balance backwards with sit to stand despite extended time spent in therapy on this. She is falling less at home, but this is mostly because she is doing less. Her has gotten a caregiver for shower assistance. Crystal continues to use her transport chair which does not have adequte anti tip bars because the wheelchair that she has is too wide for her to get into her bathroom. Will discuss with her OT further. Physical therapy has focused on safe transfers and mobility preservation considering the progressive degenerative nature of her disease. Physical Therapy Plan Frequency and Duration Frequency of Treatment 1x/Week Duration of Treatment 12 weeks Plan of Care Start Date 06/29/21 Plan of Care End Date 09/21/21 Therapeutic Interventions Therapeutic Interventions Balance Training,Gait Training ,Home Exercise Program,Manual Therapy,Neuromuscular Re- education,Self-Care/Home Management,Therapeutic Activities,Therapeutic Exercises Next Visit Focus/Plan Next Note Type Treatment Note Next Visit Plan Progress forward lean with transfers, gait. Plan of Care Dates Plan of Care Start Date 06/29/21 Plan of Care End Date 09/21/21 Electronically Signed by: Maribel Fernández, PT 07/05/21 [id number] Please Sign and Return: I have reviewed this Plan of Care and certify that the skilled therapy services above are required to meet the patient?s needs. Physician Signature Date Printed Name and Credentials Clinical Instructor Signature Printed Name and Credentials
--- NOTE | 2021-07-05 14:07 | PT.OTN ---
Current Diagnoses Parkinson's disease (07/05/21) Other abnormalities of gait and mobility (07/05/21) History of falling (07/05/21) Physical Therapy Treatment Note PT-OP-A Visit Information Start: 11/23/20 13:39 Freq: Status: Active Protocol: Document 07/05/21 13:02 AW (Rec: 07/05/21 14:07 AW [id number]) Out-Patient Physical Therapy Visit Information Visit Information Visit Type Treatment Note Visit Start Time 13:00 Visit Stop Time 13:45 Total Visit Minutes 45 Visit Number 25 PT-OP-B Current Condition Start: 11/23/20 13:39 Freq: Status: Active Protocol: Document 11/23/20 14:15 AMB (Rec: 11/23/20 14:28 AMB [id number]) Current Condition History of Current Condition Onset Date years Current Complaints fall history, Parkinsons History of Current Condition Crystal returns to physical therapy to continue to reduce her fall risk. She reports a bad fall going into the shower fell in October and hit her head. Multiple other small falls. She does report that she now uses the walker in the house. Also has noticed reaching for things that are out of reach causes falls. Lives in a two story house with her . Has a walk in shower without grab bars. L shoulder pain with stretching- did have clavicle fracture that she reports healed poory- sleeping on the shoulder is challenging. Difficult to get up from the floor- does have knee pain with kneeling. No longer doing the laundry- takes it to a laundromat. No longer wearing her glasses, no longer cooks. Doing BIG exercises, reads. My doesn't let me do anything any more. Prior Treatments and Tests BIG therapy recently have continued on with exercises Treatment Goals Patient/Caregiver Goals I'd like how to use my walker better, going in and out of doorways, getting in and out of the car. Prior Functional Status Baseline Function- ADL's Modified Independent Baseline Function- Mobility Modified Independent Current Functional Impairments (Reported) Functional Limitations- ADL's No longer does laundry, no longer cooks, falls with ADLS like bathing, dressing Personal Factors Other Personal Factors That May Effect Long history of falls, vision Therapy/Recovery issues, recall issues PT-OP-C Subjective Start: 11/23/20 13:39 Freq: Status: Active Protocol: Document 07/05/21 13:02 AW (Rec: 07/05/21 14:07 AW [id number]) OP-PT Subjective Patient Comments Patient Comments Wilber arrives with pt but leaves to run some errands during appointment. Both deny falls since last visit. PT-OP-E Functional Tests Start: 11/23/20 13:39 Freq: Status: Active Protocol: Document 05/10/21 11:15 AMB (Rec: 05/10/21 16:08 AMB [email or web address]) Functional Tests Timed Up and Go (TUG) Score 1 minute 53 seconds Comments 4WW TUG Impairment Rating 100% Impaired (Score 20) PT-OP-G Mobility & Gait Start: 11/23/20 13:39 Freq: Status: Active Protocol: Document 11/23/20 14:15 AMB (Rec: 11/23/20 15:46 AMB [email or web address]) OP Mobility Evaluation Transfers Sit to Stand Poor habits--pt tends to pull on 4WW, stop before the chair and then walk a few steps from walker to chair-- all despite extensive prior training in correct usage. OP Gait Assessment Assistive Devices Assistive Device 4 Wheeled Walker Gait Deviations General Gait Pattern Decreased Stride Length, Decreased Feet Clearance, Festinating,Lateral Trunk Lean ,Narrow Based Gait Stair Climbing Evaluation Evaluation Level of Assist On Stairs Standby Assistance Devices Stair Climbing Assistive Devices Left Railing Technique/Endurance Stair Climbing Direction Ascend and Descend Stair Climbing Technique Step to Step Number of Steps Climbed 8 PT-OP-J Posture/Palpation/Skin Start: 11/23/20 13:39 Freq: Status: Active Protocol: Document 11/23/20 14:15 AMB (Rec: 11/23/20 15:46 AMB [email or web address]) Posture Evaluation Comments Posture Comments scoliosis, tends to have severe cervical flexion PT-OP-M Strength Start: 11/23/20 13:39 Freq: Status: Active Protocol: Document 11/23/20 14:15 AMB (Rec: 11/23/20 15:46 AMB [email or web address]) Hip Strength Hip Manual Muscle Testing Right Flexion (L2) 4+ Good+ Extension (S1) 4- Good- Abduction 4 Good Left Flexion (L2) 4+ Good+ Extension (S1) 4- Good- Abduction 4 Good Knee Strength Knee Manual Muscle Testing Right Flexion (S2) 4- Good- Extension (L3) 4+ Good+ Left Flexion (S2) 4- Good- Extension (L3) 4+ Good+ PT-OP-Q Treatments Start: 11/23/20 13:39 Freq: Status: Active Protocol: Document 07/05/21 13:02 AW (Rec: 07/05/21 14:07 AW [id number]) Therapeutic Activity Therapeutic Activity seated fwd lean Name seated fwd lean Comments - with 45 cm ball on lap - reaching fwd toward target without ball 5 Name sit to stand Reps/Minutes 2x5 Comments Max cues for lean forward ascend/ descending with UE reaching back prior sit for safety guidence. Pt needed min/modA for appropriate form and constant cues for leaning forward. 4 Name stand pivot transfer R and L Reps/Minutes 4 Comments Milton for transfer until sitting down then ModA. Cues needed for pt to contact chair arms on descent. Gait Training Gait Activity 4 Description walking: backing up and turning Comments with 4WW - managing backing up into chair- min/modA- pt tends to lose balance posteriorly with taking steps backwards and is unable to correct PT-OP-T Assessment and Plan Start: 11/23/20 13:39 Freq: Status: Active Protocol: Document 07/05/21 13:02 AW (Rec: 07/05/21 14:07 AW [id number]) Physical Therapy Assessment Goals Three Impairment SIT TO STAND Short Term Goal (STG) Crystal will move from sit to stand and stand to sit with Milton and good forward lean without heavy posterior LOB. STG Duration PROGRESS MADE- can do sit to stand but stand to sit loses balance post Two Short Term Goal (STG) Crystal will walk with a 4WW for 100' with CGA over smooth terrain without LOB. STG Duration PROGRESS MADE- Milton for navigation, walker management One Impairment Transfers Short Term Goal (STG) Crystal will perform a squat pivot transfer with Milton. STG Duration 4 weeks Photographs Curator Goal (LTG) Crystal and Wilber will perform a squat pivot transfer with good body mechanics. LTG Duration 8 weeks Assessment Summary Assessment Crystal does well with forward leaning as a pre-standing activity. She improves eccentric control of backward lean with increased repetitions but reverts to heavy posterior lean for sit to stand and transfers. Practiced in supported and unsupported sitting today for maximal involvement of postural musculature. Physical Therapy Plan Frequency and Duration Frequency of Treatment 1x/Week Duration of Treatment 12 weeks Plan of Care Start Date 06/29/21 Plan of Care End Date 09/21/21 Therapeutic Interventions Therapeutic Interventions Balance Training,Gait Training ,Home Exercise Program,Manual Therapy,Neuromuscular Re- education,Self-Care/Home Management,Therapeutic Activities,Therapeutic Exercises Next Visit Focus/Plan Next Note Type Treatment Note Next Visit Plan Progress forward lean with transfers, gait.
--- NOTE | 2021-07-11 11:17 | PT.OTN ---
Current Diagnoses Parkinson's disease (07/11/21) Other abnormalities of gait and mobility (07/11/21) History of falling (07/11/21) Physical Therapy Treatment Note PT-OP-A Visit Information Start: 11/23/20 13:39 Freq: Status: Active Protocol: Document 07/11/21 09:49 AMB (Rec: 07/11/21 10:31 AMB [id number]) Out-Patient Physical Therapy Visit Information Visit Information Visit Type Treatment Note Visit Start Time 09:45 Visit Stop Time 10:30 Total Visit Minutes 45 Visit Number 26 PT-OP-B Current Condition Start: 11/23/20 13:39 Freq: Status: Active Protocol: Document 11/23/20 14:15 AMB (Rec: 11/23/20 14:28 AMB [id number]) Current Condition History of Current Condition Onset Date years Current Complaints fall history, Parkinsons History of Current Condition Crystal returns to physical therapy to continue to reduce her fall risk. She reports a bad fall going into the shower fell in October and hit her head. Multiple other small falls. She does report that she now uses the walker in the house. Also has noticed reaching for things that are out of reach causes falls. Lives in a two story house with her . Has a walk in shower without grab bars. L shoulder pain with stretching- did have clavicle fracture that she reports healed poory- sleeping on the shoulder is challenging. Difficult to get up from the floor- does have knee pain with kneeling. No longer doing the laundry- takes it to a laundromat. No longer wearing her glasses, no longer cooks. Doing BIG exercises, reads. My doesn't let me do anything any more. Prior Treatments and Tests BIG therapy recently have continued on with exercises Treatment Goals Patient/Caregiver Goals I'd like how to use my walker better, going in and out of doorways, getting in and out of the car. Prior Functional Status Baseline Function- ADL's Modified Independent Baseline Function- Mobility Modified Independent Current Functional Impairments (Reported) Functional Limitations- ADL's No longer does laundry, no longer cooks, falls with ADLS like bathing, dressing Personal Factors Other Personal Factors That May Effect Long history of falls, vision Therapy/Recovery issues, recall issues PT-OP-C Subjective Start: 11/23/20 13:39 Freq: Status: Active Protocol: Document 07/11/21 09:45 AMB (Rec: 07/11/21 11:17 AMB [id number]) OP-PT Subjective Patient Comments Patient Comments Crystal reports both caregiver and Wilber tend to transfer her passively instead of letting her help. Denies falls, sent w/c back as it wasn't working to get into bathroom. PT-OP-E Functional Tests Start: 11/23/20 13:39 Freq: Status: Active Protocol: Document 05/10/21 11:15 AMB (Rec: 05/10/21 16:08 AMB [email or web address]) Functional Tests Timed Up and Go (TUG) Score 1 minute 53 seconds Comments 4WW TUG Impairment Rating 100% Impaired (Score 20) PT-OP-G Mobility & Gait Start: 11/23/20 13:39 Freq: Status: Active Protocol: Document 11/23/20 14:15 AMB (Rec: 11/23/20 15:46 AMB [email or web address]) OP Mobility Evaluation Transfers Sit to Stand Poor habits--pt tends to pull on 4WW, stop before the chair and then walk a few steps from walker to chair-- all despite extensive prior training in correct usage. OP Gait Assessment Assistive Devices Assistive Device 4 Wheeled Walker Gait Deviations General Gait Pattern Decreased Stride Length, Decreased Feet Clearance, Festinating,Lateral Trunk Lean ,Narrow Based Gait Stair Climbing Evaluation Evaluation Level of Assist On Stairs Standby Assistance Devices Stair Climbing Assistive Devices Left Railing Technique/Endurance Stair Climbing Direction Ascend and Descend Stair Climbing Technique Step to Step Number of Steps Climbed 8 PT-OP-J Posture/Palpation/Skin Start: 11/23/20 13:39 Freq: Status: Active Protocol: Document 11/23/20 14:15 AMB (Rec: 11/23/20 15:46 AMB [email or web address]) Posture Evaluation Comments Posture Comments scoliosis, tends to have severe cervical flexion PT-OP-M Strength Start: 11/23/20 13:39 Freq: Status: Active Protocol: Document 11/23/20 14:15 AMB (Rec: 11/23/20 15:46 AMB [email or web address]) Hip Strength Hip Manual Muscle Testing Right Flexion (L2) 4+ Good+ Extension (S1) 4- Good- Abduction 4 Good Left Flexion (L2) 4+ Good+ Extension (S1) 4- Good- Abduction 4 Good Knee Strength Knee Manual Muscle Testing Right Flexion (S2) 4- Good- Extension (L3) 4+ Good+ Left Flexion (S2) 4- Good- Extension (L3) 4+ Good+ PT-OP-Q Treatments Start: 11/23/20 13:39 Freq: Status: Active Protocol: Document 07/11/21 09:45 AMB (Rec: 07/11/21 11:17 AMB [id number]) Therapeutic Activity Therapeutic Activity 5 Name sit to stand Reps/Minutes 2x5 Comments Max cues for lean forward ascend/ descending with UE reaching back prior sit for safety guidence. Pt needed min/modA for appropriate form and constant cues for leaning forward. 4 Name stand pivot transfer R and L Reps/Minutes 4 Comments Milton for transfer until sitting down then ModA. Cues needed for pt to contact chair arms on descent. Gait Training Gait Activity 4 Description walking: backing up and turning Comments with 4WW - managing backing up into chair- min/modA- pt tends to lose balance posteriorly with taking steps backwards and is unable to correct 2 Description indoor walking Distance/Duration 150 ftx2 Comments heavy cues for navigation-4WW MinAfor safety Neuro Re-Education Treatment Other Activities 1 Details seated floor to ceiling Reps/Duration 5 3 Details seated vahid to side Reps/Duration 5 Comments physical cues to avoid LOB posterior PT-OP-T Assessment and Plan Start: 11/23/20 13:39 Freq: Status: Active Protocol: Document 07/11/21 09:45 AMB (Rec: 07/11/21 11:17 AMB [id number]) Physical Therapy Assessment Goals Three Impairment SIT TO STAND Short Term Goal (STG) Crystal will move from sit to stand and stand to sit with Milton and good forward lean without heavy posterior LOB. STG Duration PROGRESS MADE- can do sit to stand but stand to sit loses balance post Two Short Term Goal (STG) Crystal will walk with a 4WW for 100' with CGA over smooth terrain without LOB. STG Duration PROGRESS MADE- Milton for navigation, walker management One Impairment Transfers Short Term Goal (STG) Crystal will perform a squat pivot transfer with Milton. STG Duration 4 weeks Snf Goal (LTG) Crystal and Wilber will perform a squat pivot transfer with good body mechanics. LTG Duration 8 weeks Assessment Summary Assessment Crystal had a better time with gait practice today, did well with forward lean with exercises, but then reverts back to hard posterior lean with standing and with transfers. Physical Therapy Plan Next Visit Focus/Plan Next Note Type Treatment Note Next Visit Plan Progress forward lean with transfers, gait.
--- NOTE | 2021-07-21 15:57 | PT.OTN ---
Current Diagnoses Parkinson's disease (07/21/21) Other abnormalities of gait and mobility (07/21/21) History of falling (07/21/21) Physical Therapy Treatment Note PT-OP-A Visit Information Start: 11/23/20 13:39 Freq: Status: Active Protocol: Document 07/21/21 13:00 AMB (Rec: 07/21/21 15:56 AMB [id number]) Out-Patient Physical Therapy Visit Information Visit Information Visit Type Treatment Note Visit Start Time 13:00 Visit Stop Time 13:45 Total Visit Minutes 45 Visit Number 27 PT-OP-B Current Condition Start: 11/23/20 13:39 Freq: Status: Active Protocol: Document 11/23/20 14:15 AMB (Rec: 11/23/20 14:28 AMB [id number]) Current Condition History of Current Condition Onset Date years Current Complaints fall history, Parkinsons History of Current Condition Crystal returns to physical therapy to continue to reduce her fall risk. She reports a bad fall going into the shower fell in October and hit her head. Multiple other small falls. She does report that she now uses the walker in the house. Also has noticed reaching for things that are out of reach causes falls. Lives in a two story house with her . Has a walk in shower without grab bars. L shoulder pain with stretching- did have clavicle fracture that she reports healed poory- sleeping on the shoulder is challenging. Difficult to get up from the floor- does have knee pain with kneeling. No longer doing the laundry- takes it to a laundromat. No longer wearing her glasses, no longer cooks. Doing BIG exercises, reads. My doesn't let me do anything any more. Prior Treatments and Tests BIG therapy recently have continued on with exercises Treatment Goals Patient/Caregiver Goals I'd like how to use my walker better, going in and out of doorways, getting in and out of the car. Prior Functional Status Baseline Function- ADL's Modified Independent Baseline Function- Mobility Modified Independent Current Functional Impairments (Reported) Functional Limitations- ADL's No longer does laundry, no longer cooks, falls with ADLS like bathing, dressing Personal Factors Other Personal Factors That May Effect Long history of falls, vision Therapy/Recovery issues, recall issues PT-OP-C Subjective Start: 11/23/20 13:39 Freq: Status: Active Protocol: Document 07/21/21 13:00 AMB (Rec: 07/21/21 15:56 AMB [id number]) OP-PT Subjective Patient Comments Patient Comments Crystal says things are fine, Wilber says that the w/c rep is coming on Saturday. PT-OP-E Functional Tests Start: 11/23/20 13:39 Freq: Status: Active Protocol: Document 05/10/21 11:15 AMB (Rec: 05/10/21 16:08 AMB [email or web address]) Functional Tests Timed Up and Go (TUG) Score 1 minute 53 seconds Comments 4WW TUG Impairment Rating 100% Impaired (Score 20) PT-OP-G Mobility & Gait Start: 11/23/20 13:39 Freq: Status: Active Protocol: Document 11/23/20 14:15 AMB (Rec: 11/23/20 15:46 AMB [email or web address]) OP Mobility Evaluation Transfers Sit to Stand Poor habits--pt tends to pull on 4WW, stop before the chair and then walk a few steps from walker to chair-- all despite extensive prior training in correct usage. OP Gait Assessment Assistive Devices Assistive Device 4 Wheeled Walker Gait Deviations General Gait Pattern Decreased Stride Length, Decreased Feet Clearance, Festinating,Lateral Trunk Lean ,Narrow Based Gait Stair Climbing Evaluation Evaluation Level of Assist On Stairs Standby Assistance Devices Stair Climbing Assistive Devices Left Railing Technique/Endurance Stair Climbing Direction Ascend and Descend Stair Climbing Technique Step to Step Number of Steps Climbed 8 PT-OP-J Posture/Palpation/Skin Start: 11/23/20 13:39 Freq: Status: Active Protocol: Document 11/23/20 14:15 AMB (Rec: 11/23/20 15:46 AMB [email or web address]) Posture Evaluation Comments Posture Comments scoliosis, tends to have severe cervical flexion PT-OP-M Strength Start: 11/23/20 13:39 Freq: Status: Active Protocol: Document 11/23/20 14:15 AMB (Rec: 11/23/20 15:46 AMB [email or web address]) Hip Strength Hip Manual Muscle Testing Right Flexion (L2) 4+ Good+ Extension (S1) 4- Good- Abduction 4 Good Left Flexion (L2) 4+ Good+ Extension (S1) 4- Good- Abduction 4 Good Knee Strength Knee Manual Muscle Testing Right Flexion (S2) 4- Good- Extension (L3) 4+ Good+ Left Flexion (S2) 4- Good- Extension (L3) 4+ Good+ PT-OP-Q Treatments Start: 11/23/20 13:39 Freq: Status: Active Protocol: Document 07/21/21 13:00 AMB (Rec: 07/21/21 15:56 [facility] [id number]) Therapeutic Activity Therapeutic Activity 5 Name sit to stand Reps/Minutes 2x5 Comments Max cues for lean forward ascend/ descending with UE reaching back prior sit for safety guidence. Pt needed min/modA for appropriate form and constant cues for leaning forward. Head forward cues did seem to help Gait Training Gait Activity 2 Description indoor walking Distance/Duration 75'x2 Comments heavy cues for navigation-4WW ModA for safety, MaxA when backing up to chair Neuro Re-Education Treatment Balance Activities 3 Details standing balance COG over SHU Equipment 4WW Comments -WBOS, Other Activities 1 Details seated floor to ceiling Reps/Duration 5 PT-OP-T Assessment and Plan Start: 11/23/20 13:39 Freq: Status: Active Protocol: Document 07/21/21 13:00 AMB (Rec: 07/21/21 15:56 [facility] [id number]) Physical Therapy Assessment Assessment Summary Assessment Crystal had a difficult time with PT today, she did not sleep well last night and thinks that is why. She was quite unsafe with her gait, needing Mod/Max A to prevent falling and was reminded as to why she is not walking at home. Physical Therapy Plan Next Visit Focus/Plan Next Note Type Treatment Note Next Visit Plan Progress forward lean with transfers, gait.
--- NOTE | 2021-07-26 16:01 | PT.OTN ---
Current Diagnoses Parkinson's disease (07/26/21) Other abnormalities of gait and mobility (07/26/21) History of falling (07/26/21) Physical Therapy Treatment Note PT-OP-A Visit Information Start: 11/23/20 13:39 Freq: Status: Active Protocol: Document 07/26/21 14:33 AMB (Rec: 07/26/21 15:33 AMB [id number]) Out-Patient Physical Therapy Visit Information Visit Information Visit Type Treatment Note Visit Start Time 14:30 Visit Stop Time 15:15 Total Visit Minutes 45 Visit Number 28 PT-OP-B Current Condition Start: 11/23/20 13:39 Freq: Status: Active Protocol: Document 11/23/20 14:15 AMB (Rec: 11/23/20 14:28 AMB [id number]) Current Condition History of Current Condition Onset Date years Current Complaints fall history, Parkinsons History of Current Condition Crystal returns to physical therapy to continue to reduce her fall risk. She reports a bad fall going into the shower fell in October and hit her head. Multiple other small falls. She does report that she now uses the walker in the house. Also has noticed reaching for things that are out of reach causes falls. Lives in a two story house with her . Has a walk in shower without grab bars. L shoulder pain with stretching- did have clavicle fracture that she reports healed poory- sleeping on the shoulder is challenging. Difficult to get up from the floor- does have knee pain with kneeling. No longer doing the laundry- takes it to a laundromat. No longer wearing her glasses, no longer cooks. Doing BIG exercises, reads. My doesn't let me do anything any more. Prior Treatments and Tests BIG therapy recently have continued on with exercises Treatment Goals Patient/Caregiver Goals I'd like how to use my walker better, going in and out of doorways, getting in and out of the car. Prior Functional Status Baseline Function- ADL's Modified Independent Baseline Function- Mobility Modified Independent Current Functional Impairments (Reported) Functional Limitations- ADL's No longer does laundry, no longer cooks, falls with ADLS like bathing, dressing Personal Factors Other Personal Factors That May Effect Long history of falls, vision Therapy/Recovery issues, recall issues PT-OP-C Subjective Start: 11/23/20 13:39 Freq: Status: Active Protocol: Document 07/26/21 14:33 AMB (Rec: 07/26/21 15:33 AMB [id number]) OP-PT Subjective Patient Comments Patient Comments w/c rep was supposed to come this week but rescheduled due to having covid last week. PT-OP-E Functional Tests Start: 11/23/20 13:39 Freq: Status: Active Protocol: Document 05/10/21 11:15 AMB (Rec: 05/10/21 16:08 AMB [email or web address]) Functional Tests Timed Up and Go (TUG) Score 1 minute 53 seconds Comments 4WW TUG Impairment Rating 100% Impaired (Score 20) PT-OP-G Mobility & Gait Start: 11/23/20 13:39 Freq: Status: Active Protocol: Document 11/23/20 14:15 AMB (Rec: 11/23/20 15:46 AMB [email or web address]) OP Mobility Evaluation Transfers Sit to Stand Poor habits--pt tends to pull on 4WW, stop before the chair and then walk a few steps from walker to chair-- all despite extensive prior training in correct usage. OP Gait Assessment Assistive Devices Assistive Device 4 Wheeled Walker Gait Deviations General Gait Pattern Decreased Stride Length, Decreased Feet Clearance, Festinating,Lateral Trunk Lean ,Narrow Based Gait Stair Climbing Evaluation Evaluation Level of Assist On Stairs Standby Assistance Devices Stair Climbing Assistive Devices Left Railing Technique/Endurance Stair Climbing Direction Ascend and Descend Stair Climbing Technique Step to Step Number of Steps Climbed 8 PT-OP-J Posture/Palpation/Skin Start: 11/23/20 13:39 Freq: Status: Active Protocol: Document 11/23/20 14:15 AMB (Rec: 11/23/20 15:46 AMB [email or web address]) Posture Evaluation Comments Posture Comments scoliosis, tends to have severe cervical flexion PT-OP-M Strength Start: 11/23/20 13:39 Freq: Status: Active Protocol: Document 11/23/20 14:15 AMB (Rec: 11/23/20 15:46 AMB [email or web address]) Hip Strength Hip Manual Muscle Testing Right Flexion (L2) 4+ Good+ Extension (S1) 4- Good- Abduction 4 Good Left Flexion (L2) 4+ Good+ Extension (S1) 4- Good- Abduction 4 Good Knee Strength Knee Manual Muscle Testing Right Flexion (S2) 4- Good- Extension (L3) 4+ Good+ Left Flexion (S2) 4- Good- Extension (L3) 4+ Good+ PT-OP-Q Treatments Start: 11/23/20 13:39 Freq: Status: Active Protocol: Document 07/26/21 14:30 AMB (Rec: 07/26/21 16:01 AMB [id number]) Therapeutic Activity Therapeutic Activity transfer trng w/ 4WW Comments stand pivot transfer- discussed not going up on toes 1 Reps/Minutes 10 min Comments seated balloon toss on rajan disc- challenging, mirror feedback to work on upright posture Gait Training Gait Activity 2 Description indoor walking Distance/Duration 75'x2 Comments heavy cues for navigation-4WW ModA for safety, MaxA when backing up to chair Neuro Re-Education Treatment Other Activities 1 Details seated floor to ceiling Reps/Duration 5 3 Details seated vahid to side Reps/Duration 5 Comments physical cues to avoid LOB posterior PT-OP-T Assessment and Plan Start: 11/23/20 13:39 Freq: Status: Active Protocol: Document 07/26/21 14:33 AMB (Rec: 07/26/21 15:33 AMB [id number]) Physical Therapy Assessment Assessment Summary Assessment Crystal is showing increased difficulty cognitively today. Worked more on seated balance , as she does have a tendency to fall into her scoliosis, especially when walking. Needed Mod/MaxA when backing up today. Physical Therapy Plan Next Visit Focus/Plan Next Note Type Treatment Note Next Visit Plan Progress forward lean with transfers, gait.
--- NOTE | 2021-08-02 15:32 | PT.OTN ---
Current Diagnoses Parkinson's disease (08/02/21) Other abnormalities of gait and mobility (08/02/21) History of falling (08/02/21) Physical Therapy Treatment Note PT-OP-A Visit Information Start: 11/23/20 13:39 Freq: Status: Active Protocol: Document 08/02/21 13:45 AMB (Rec: 08/02/21 15:31 AMB [id number]) Out-Patient Physical Therapy Visit Information Visit Information Visit Type Treatment Note Visit Start Time 13:45 Visit Stop Time 14:30 Total Visit Minutes 45 Visit Number 29 PT-OP-B Current Condition Start: 11/23/20 13:39 Freq: Status: Active Protocol: Document 11/23/20 14:15 AMB (Rec: 11/23/20 14:28 AMB [id number]) Current Condition History of Current Condition Onset Date years Current Complaints fall history, Parkinsons History of Current Condition Crystal returns to physical therapy to continue to reduce her fall risk. She reports a bad fall going into the shower fell in October and hit her head. Multiple other small falls. She does report that she now uses the walker in the house. Also has noticed reaching for things that are out of reach causes falls. Lives in a two story house with her . Has a walk in shower without grab bars. L shoulder pain with stretching- did have clavicle fracture that she reports healed poory- sleeping on the shoulder is challenging. Difficult to get up from the floor- does have knee pain with kneeling. No longer doing the laundry- takes it to a laundromat. No longer wearing her glasses, no longer cooks. Doing BIG exercises, reads. My doesn't let me do anything any more. Prior Treatments and Tests BIG therapy recently have continued on with exercises Treatment Goals Patient/Caregiver Goals I'd like how to use my walker better, going in and out of doorways, getting in and out of the car. Prior Functional Status Baseline Function- ADL's Modified Independent Baseline Function- Mobility Modified Independent Current Functional Impairments (Reported) Functional Limitations- ADL's No longer does laundry, no longer cooks, falls with ADLS like bathing, dressing Personal Factors Other Personal Factors That May Effect Long history of falls, vision Therapy/Recovery issues, recall issues PT-OP-C Subjective Start: 11/23/20 13:39 Freq: Status: Active Protocol: Document 08/02/21 13:45 AMB (Rec: 08/02/21 15:31 AMB [id number]) OP-PT Subjective Patient Comments Patient Comments w/c rep coming tomorrow. Crystal states she spends a lot of time on the couch and then uses the tranport chair to go to the bathroom. PT-OP-E Functional Tests Start: 11/23/20 13:39 Freq: Status: Active Protocol: Document 05/10/21 11:15 AMB (Rec: 05/10/21 16:08 AMB [email or web address]) Functional Tests Timed Up and Go (TUG) Score 1 minute 53 seconds Comments 4WW TUG Impairment Rating 100% Impaired (Score 20) PT-OP-G Mobility & Gait Start: 11/23/20 13:39 Freq: Status: Active Protocol: Document 11/23/20 14:15 AMB (Rec: 11/23/20 15:46 AMB [email or web address]) OP Mobility Evaluation Transfers Sit to Stand Poor habits--pt tends to pull on 4WW, stop before the chair and then walk a few steps from walker to chair-- all despite extensive prior training in correct usage. OP Gait Assessment Assistive Devices Assistive Device 4 Wheeled Walker Gait Deviations General Gait Pattern Decreased Stride Length, Decreased Feet Clearance, Festinating,Lateral Trunk Lean ,Narrow Based Gait Stair Climbing Evaluation Evaluation Level of Assist On Stairs Standby Assistance Devices Stair Climbing Assistive Devices Left Railing Technique/Endurance Stair Climbing Direction Ascend and Descend Stair Climbing Technique Step to Step Number of Steps Climbed 8 PT-OP-J Posture/Palpation/Skin Start: 11/23/20 13:39 Freq: Status: Active Protocol: Document 11/23/20 14:15 AMB (Rec: 11/23/20 15:46 AMB [email or web address]) Posture Evaluation Comments Posture Comments scoliosis, tends to have severe cervical flexion PT-OP-M Strength Start: 11/23/20 13:39 Freq: Status: Active Protocol: Document 11/23/20 14:15 AMB (Rec: 11/23/20 15:46 AMB [email or web address]) Hip Strength Hip Manual Muscle Testing Right Flexion (L2) 4+ Good+ Extension (S1) 4- Good- Abduction 4 Good Left Flexion (L2) 4+ Good+ Extension (S1) 4- Good- Abduction 4 Good Knee Strength Knee Manual Muscle Testing Right Flexion (S2) 4- Good- Extension (L3) 4+ Good+ Left Flexion (S2) 4- Good- Extension (L3) 4+ Good+ PT-OP-Q Treatments Start: 11/23/20 13:39 Freq: Status: Active Protocol: Document 08/02/21 13:45 AMB (Rec: 08/02/21 15:31 AMB [id number]) Therapeutic Exercises Standing Exercises 1 Standing Exercise Name sidestepping at railing Reps/Minutes 10'x2 Therapeutic Activity Therapeutic Activity 1 Reps/Minutes 10 min Comments seated balloon toss on firm surface, mirror feedback to work on upright posture Gait Training Gait Activity 2 Description indoor walking Distance/Duration 75'x1 Comments heavy cues for navigation-4WW ModA for safety, MaxA when backing up to chair. Leaning to R requires ModA to prevent LOB even with forward gait. Running into dennis. PT-OP-T Assessment and Plan Start: 11/23/20 13:39 Freq: Status: Active Protocol: Document 08/02/21 13:45 AMB (Rec: 08/02/21 15:31 AMB [id number]) Physical Therapy Assessment Goals Three Impairment SIT TO STAND Short Term Goal (STG) Crystal will move from sit to stand and stand to sit with Milton and good forward lean without heavy posterior LOB. STG Duration PROGRESS MADE- can do sit to stand but stand to sit loses balance post Two Short Term Goal (STG) Crystal will walk with a 4WW for 100' with CGA over smooth terrain without LOB. STG Duration PROGRESS MADE- Milton for navigation, walker management One Impairment Transfers Short Term Goal (STG) Crystal will perform a squat pivot transfer with Milton. STG Duration 4 weeks Prison Goal (LTG) Crystal and Wilber will perform a squat pivot transfer with good body mechanics. LTG Duration 8 weeks Assessment Summary Assessment Continued seated balance, Crystal really needed ModA during all gait today, but did well at the railing. Physical Therapy Plan Next Visit Focus/Plan Next Note Type Treatment Note Next Visit Plan Consider transition to // bars for gait training instead of 4WW due to continued decline in vision/ right lean
--- NOTE | 2021-08-09 16:00 | PT.OTN ---
Current Diagnoses Parkinson's disease (08/09/21) Other abnormalities of gait and mobility (08/09/21) History of falling (08/09/21) Physical Therapy Treatment Note PT-OP-A Visit Information Start: 11/23/20 13:39 Freq: Status: Active Protocol: Document 08/09/21 13:45 AMB (Rec: 08/09/21 14:35 AMB [id number]) Out-Patient Physical Therapy Visit Information Visit Information Visit Type Treatment Note Visit Start Time 13:45 Visit Stop Time 14:30 Total Visit Minutes 45 Visit Number 30 PT-OP-B Current Condition Start: 11/23/20 13:39 Freq: Status: Active Protocol: Document 11/23/20 14:15 AMB (Rec: 11/23/20 14:28 AMB [id number]) Current Condition History of Current Condition Onset Date years Current Complaints fall history, Parkinsons History of Current Condition Crystal returns to physical therapy to continue to reduce her fall risk. She reports a bad fall going into the shower fell in October and hit her head. Multiple other small falls. She does report that she now uses the walker in the house. Also has noticed reaching for things that are out of reach causes falls. Lives in a two story house with her . Has a walk in shower without grab bars. L shoulder pain with stretching- did have clavicle fracture that she reports healed poory- sleeping on the shoulder is challenging. Difficult to get up from the floor- does have knee pain with kneeling. No longer doing the laundry- takes it to a laundromat. No longer wearing her glasses, no longer cooks. Doing BIG exercises, reads. My doesn't let me do anything any more. Prior Treatments and Tests BIG therapy recently have continued on with exercises Treatment Goals Patient/Caregiver Goals I'd like how to use my walker better, going in and out of doorways, getting in and out of the car. Prior Functional Status Baseline Function- ADL's Modified Independent Baseline Function- Mobility Modified Independent Current Functional Impairments (Reported) Functional Limitations- ADL's No longer does laundry, no longer cooks, falls with ADLS like bathing, dressing Personal Factors Other Personal Factors That May Effect Long history of falls, vision Therapy/Recovery issues, recall issues PT-OP-C Subjective Start: 11/23/20 13:39 Freq: Status: Active Protocol: Document 08/09/21 13:45 AMB (Rec: 08/13/21 10:50 AMB [id number]) OP-PT Subjective Patient Comments Patient Comments using w/c at home and it seems to be working, brought transport chair because it's dry boss to PT Patient Reported Progress Same PT-OP-E Functional Tests Start: 11/23/20 13:39 Freq: Status: Active Protocol: Document 05/10/21 11:15 AMB (Rec: 05/10/21 16:08 AMB [email or web address]) Functional Tests Timed Up and Go (TUG) Score 1 minute 53 seconds Comments 4WW TUG Impairment Rating 100% Impaired (Score 20) PT-OP-G Mobility & Gait Start: 11/23/20 13:39 Freq: Status: Active Protocol: Document 11/23/20 14:15 AMB (Rec: 11/23/20 15:46 AMB [email or web address]) OP Mobility Evaluation Transfers Sit to Stand Poor habits--pt tends to pull on 4WW, stop before the chair and then walk a few steps from walker to chair-- all despite extensive prior training in correct usage. OP Gait Assessment Assistive Devices Assistive Device 4 Wheeled Walker Gait Deviations General Gait Pattern Decreased Stride Length, Decreased Feet Clearance, Festinating,Lateral Trunk Lean ,Narrow Based Gait Stair Climbing Evaluation Evaluation Level of Assist On Stairs Standby Assistance Devices Stair Climbing Assistive Devices Left Railing Technique/Endurance Stair Climbing Direction Ascend and Descend Stair Climbing Technique Step to Step Number of Steps Climbed 8 PT-OP-J Posture/Palpation/Skin Start: 11/23/20 13:39 Freq: Status: Active Protocol: Document 11/23/20 14:15 AMB (Rec: 11/23/20 15:46 AMB [email or web address]) Posture Evaluation Comments Posture Comments scoliosis, tends to have severe cervical flexion PT-OP-M Strength Start: 11/23/20 13:39 Freq: Status: Active Protocol: Document 11/23/20 14:15 AMB (Rec: 11/23/20 15:46 AMB [email or web address]) Hip Strength Hip Manual Muscle Testing Right Flexion (L2) 4+ Good+ Extension (S1) 4- Good- Abduction 4 Good Left Flexion (L2) 4+ Good+ Extension (S1) 4- Good- Abduction 4 Good Knee Strength Knee Manual Muscle Testing Right Flexion (S2) 4- Good- Extension (L3) 4+ Good+ Left Flexion (S2) 4- Good- Extension (L3) 4+ Good+ PT-OP-Q Treatments Start: 11/23/20 13:39 Freq: Status: Active Protocol: Document 08/09/21 13:45 AMB (Rec: 08/13/21 10:50 AMB [id number]) Therapeutic Exercises Sitting Exercises 5 Sitting Exercise Name forward lean Comments 10x in seated Standing Exercises 3 Standing Exercise Name mini squat in // bars Reps/Minutes 10 Comments with focus on forward lean 2 Standing Exercise Name high knee marching in // bars Reps/Minutes 3 min 1 Standing Exercise Name sidestepping at railing Reps/Minutes 10'x2 Gait Training Gait Activity 3 Description // bars Comments fwd, lateral, backwards walking- heavy use of UEs but overall safer than with 4WW PT-OP-T Assessment and Plan Start: 11/23/20 13:39 Freq: Status: Active Protocol: Document 08/09/21 13:45 AMB (Rec: 08/13/21 10:50 AMB [id number]) Physical Therapy Assessment Goals Three Impairment SIT TO STAND Short Term Goal (STG) Crystal will move from sit to stand and stand to sit with Milton and good forward lean without heavy posterior LOB. STG Duration PROGRESS MADE- can do sit to stand but stand to sit loses balance post Two Short Term Goal (STG) Crystal will walk with a 4WW for 100' with CGA over smooth terrain without LOB. STG Duration PROGRESS MADE- Milton for navigation, walker management One Impairment Transfers Short Term Goal (STG) Crystal will perform a squat pivot transfer with Milton. STG Duration 4 weeks Nursing Home Goal (LTG) Aylin will perform a squat pivot transfer with good body mechanics. LTG Duration 8 weeks Assessment Summary Assessment Crystal did well with exercise in the paralel bars. Will need to assess safety at counter in order to provide her a new HEP. Physical Therapy Plan Next Visit Focus/Plan Next Note Type Treatment Note Next Visit Plan Consider transition to // bars for gait training instead of 4WW due to continued decline in vision/ right lean
--- NOTE | 2021-08-17 15:59 | PT.OTN ---
Current Diagnoses Parkinson's disease (08/17/21) Other abnormalities of gait and mobility (08/17/21) History of falling (08/17/21) Physical Therapy Treatment Note PT-OP-A Visit Information Start: 11/23/20 13:39 Freq: Status: Active Protocol: Document 08/17/21 13:17 AMB (Rec: 08/17/21 13:49 AMB [id number]) Out-Patient Physical Therapy Visit Information Visit Information Visit Type Treatment Note Visit Start Time 13:00 Visit Stop Time 13:45 Total Visit Minutes 45 Visit Number 31 PT-OP-B Current Condition Start: 11/23/20 13:39 Freq: Status: Active Protocol: Document 11/23/20 14:15 AMB (Rec: 11/23/20 14:28 AMB [id number]) Current Condition History of Current Condition Onset Date years Current Complaints fall history, Parkinsons History of Current Condition Donn returns to physical therapy to continue to reduce her fall risk. She reports a bad fall going into the shower fell in October and hit her head. Multiple other small falls. She does report that she now uses the walker in the house. Also has noticed reaching for things that are out of reach causes falls. Lives in a two story house with her . Has a walk in shower without grab bars. L shoulder pain with stretching- did have clavicle fracture that she reports healed poory- sleeping on the shoulder is challenging. Difficult to get up from the floor- does have knee pain with kneeling. No longer doing the laundry- takes it to a laundromat. No longer wearing her glasses, no longer cooks. Doing BIG exercises, reads. My doesn't let me do anything any more. Prior Treatments and Tests BIG therapy recently have continued on with exercises Treatment Goals Patient/Caregiver Goals I'd like how to use my walker better, going in and out of doorways, getting in and out of the car. Prior Functional Status Baseline Function- ADL's Modified Independent Baseline Function- Mobility Modified Independent Current Functional Impairments (Reported) Functional Limitations- ADL's No longer does laundry, no longer cooks, falls with ADLS like bathing, dressing Personal Factors Other Personal Factors That May Effect Long history of falls, vision Therapy/Recovery issues, recall issues PT-OP-C Subjective Start: 11/23/20 13:39 Freq: Status: Active Protocol: Document 08/17/21 13:17 AMB (Rec: 08/17/21 13:49 AMB [id number]) OP-PT Subjective Patient Comments Patient Comments Saw neurologist who is offering a referral to paliative care. PT-OP-E Functional Tests Start: 11/23/20 13:39 Freq: Status: Active Protocol: Document 05/10/21 11:15 AMB (Rec: 05/10/21 16:08 AMB [email or web address]) Functional Tests Timed Up and Go (TUG) Score 1 minute 53 seconds Comments 4WW TUG Impairment Rating 100% Impaired (Score 20) PT-OP-G Mobility & Gait Start: 11/23/20 13:39 Freq: Status: Active Protocol: Document 11/23/20 14:15 AMB (Rec: 11/23/20 15:46 AMB [email or web address]) OP Mobility Evaluation Transfers Sit to Stand Poor habits--pt tends to pull on 4WW, stop before the chair and then walk a few steps from walker to chair-- all despite extensive prior training in correct usage. OP Gait Assessment Assistive Devices Assistive Device 4 Wheeled Walker Gait Deviations General Gait Pattern Decreased Stride Length, Decreased Feet Clearance, Festinating,Lateral Trunk Lean ,Narrow Based Gait Stair Climbing Evaluation Evaluation Level of Assist On Stairs Standby Assistance Devices Stair Climbing Assistive Devices Left Railing Technique/Endurance Stair Climbing Direction Ascend and Descend Stair Climbing Technique Step to Step Number of Steps Climbed 8 PT-OP-J Posture/Palpation/Skin Start: 11/23/20 13:39 Freq: Status: Active Protocol: Document 11/23/20 14:15 AMB (Rec: 11/23/20 15:46 AMB [email or web address]) Posture Evaluation Comments Posture Comments scoliosis, tends to have severe cervical flexion PT-OP-M Strength Start: 11/23/20 13:39 Freq: Status: Active Protocol: Document 11/23/20 14:15 AMB (Rec: 11/23/20 15:46 AMB [email or web address]) Hip Strength Hip Manual Muscle Testing Right Flexion (L2) 4+ Good+ Extension (S1) 4- Good- Abduction 4 Good Left Flexion (L2) 4+ Good+ Extension (S1) 4- Good- Abduction 4 Good Knee Strength Knee Manual Muscle Testing Right Flexion (S2) 4- Good- Extension (L3) 4+ Good+ Left Flexion (S2) 4- Good- Extension (L3) 4+ Good+ PT-OP-Q Treatments Start: 11/23/20 13:39 Freq: Status: Active Protocol: Document 08/17/21 15:54 AMB (Rec: 08/17/21 15:59 AMB [id number]) Therapeutic Exercises Sitting Exercises 1 Sitting Exercise Name sit to stand Reps/Minutes 10 Comments [place] for forward lean Standing Exercises 4 Standing Exercise Name mini lunges in // bars Reps/Minutes 10 3 Standing Exercise Name mini squat in // bars Reps/Minutes 10 Comments with focus on forward lean 2 Standing Exercise Name high knee marching in // bars Reps/Minutes 3 min 1 Standing Exercise Name sidestepping at railing Reps/Minutes 10'x2 Neuro Re-Education Treatment Balance Activities 1 Details baloon toss Comments difficulty throwing baloon- was able to bat at it, needed cues to avoid posterior lean PT-OP-T Assessment and Plan Start: 11/23/20 13:39 Freq: Status: Active Protocol: Document 08/17/21 13:17 AMB (Rec: 08/17/21 13:49 AMB [id number]) Physical Therapy Assessment Goals Three Impairment SIT TO STAND Short Term Goal (STG) Donn will move from sit to stand and stand to sit with [place] and good forward lean without heavy posterior LOB. STG Duration PROGRESS MADE- can do sit to stand but stand to sit loses balance post Two Short Term Goal (STG) Donn will walk with a 4WW for 100' with CGA over smooth terrain without LOB. STG Duration PROGRESS MADE- Milton for navigation, walker management One Impairment Transfers Short Term Goal (STG) Donn will perform a squat pivot transfer with Milton. STG Duration 4 weeks Dry Kiln Operator Goal (LTG) Donn and Wilber will perform a squat pivot transfer with good body mechanics. LTG Duration 8 weeks Assessment Summary Assessment Donn tolerated exercises well . Tried to problem solve bathroom transfer. Donn wants to pull on w/c arm rests which isn't really safe. Have talked to Wilber previously on putting something so that Donn can push up from toilet, but will discuss again. Physical Therapy Plan Next Visit Focus/Plan Next Note Type Treatment Note Next Visit Plan Continue transition to // bars for gait training instead of 4WW due to continued decline in vision/ right lean
--- NOTE | 2021-08-23 16:06 | PT.OTN ---
Current Diagnoses Parkinson's disease (08/23/21) Other abnormalities of gait and mobility (08/23/21) History of falling (08/23/21) Physical Therapy Treatment Note PT-OP-A Visit Information Start: 11/23/20 13:39 Freq: Status: Active Protocol: Document 08/23/21 13:45 AMB (Rec: 08/23/21 14:30 AMB [id number]) Out-Patient Physical Therapy Visit Information Visit Information Visit Type Treatment Note Visit Start Time 13:45 Visit Stop Time 14:30 Total Visit Minutes 45 Visit Number 32 PT-OP-B Current Condition Start: 11/23/20 13:39 Freq: Status: Active Protocol: Document 11/23/20 14:15 AMB (Rec: 11/23/20 14:28 AMB [id number]) Current Condition History of Current Condition Onset Date years Current Complaints fall history, Parkinsons History of Current Condition Crystal returns to physical therapy to continue to reduce her fall risk. She reports a bad fall going into the shower fell in October and hit her head. Multiple other small falls. She does report that she now uses the walker in the house. Also has noticed reaching for things that are out of reach causes falls. Lives in a two story house with her . Has a walk in shower without grab bars. L shoulder pain with stretching- did have clavicle fracture that she reports healed poory- sleeping on the shoulder is challenging. Difficult to get up from the floor- does have knee pain with kneeling. No longer doing the laundry- takes it to a laundromat. No longer wearing her glasses, no longer cooks. Doing BIG exercises, reads. My doesn't let me do anything any more. Prior Treatments and Tests BIG therapy recently have continued on with exercises Treatment Goals Patient/Caregiver Goals I'd like how to use my walker better, going in and out of doorways, getting in and out of the car. Prior Functional Status Baseline Function- ADL's Modified Independent Baseline Function- Mobility Modified Independent Current Functional Impairments (Reported) Functional Limitations- ADL's No longer does laundry, no longer cooks, falls with ADLS like bathing, dressing Personal Factors Other Personal Factors That May Effect Long history of falls, vision Therapy/Recovery issues, recall issues PT-OP-C Subjective Start: 11/23/20 13:39 Freq: Status: Active Protocol: Document 08/23/21 13:45 AMB (Rec: 08/23/21 14:30 AMB [id number]) OP-PT Subjective Patient Comments Patient Reported Progress Same PT-OP-E Functional Tests Start: 11/23/20 13:39 Freq: Status: Active Protocol: Document 05/10/21 11:15 AMB (Rec: 05/10/21 16:08 AMB [email or web address]) Functional Tests Timed Up and Go (TUG) Score 1 minute 53 seconds Comments 4WW TUG Impairment Rating 100% Impaired (Score 20) PT-OP-G Mobility & Gait Start: 11/23/20 13:39 Freq: Status: Active Protocol: Document 11/23/20 14:15 AMB (Rec: 11/23/20 15:46 AMB [email or web address]) OP Mobility Evaluation Transfers Sit to Stand Poor habits--pt tends to pull on 4WW, stop before the chair and then walk a few steps from walker to chair-- all despite extensive prior training in correct usage. OP Gait Assessment Assistive Devices Assistive Device 4 Wheeled Walker Gait Deviations General Gait Pattern Decreased Stride Length, Decreased Feet Clearance, Festinating,Lateral Trunk Lean ,Narrow Based Gait Stair Climbing Evaluation Evaluation Level of Assist On Stairs Standby Assistance Devices Stair Climbing Assistive Devices Left Railing Technique/Endurance Stair Climbing Direction Ascend and Descend Stair Climbing Technique Step to Step Number of Steps Climbed 8 PT-OP-J Posture/Palpation/Skin Start: 11/23/20 13:39 Freq: Status: Active Protocol: Document 11/23/20 14:15 AMB (Rec: 11/23/20 15:46 AMB [email or web address]) Posture Evaluation Comments Posture Comments scoliosis, tends to have severe cervical flexion PT-OP-M Strength Start: 11/23/20 13:39 Freq: Status: Active Protocol: Document 11/23/20 14:15 AMB (Rec: 11/23/20 15:46 AMB [email or web address]) Hip Strength Hip Manual Muscle Testing Right Flexion (L2) 4+ Good+ Extension (S1) 4- Good- Abduction 4 Good Left Flexion (L2) 4+ Good+ Extension (S1) 4- Good- Abduction 4 Good Knee Strength Knee Manual Muscle Testing Right Flexion (S2) 4- Good- Extension (L3) 4+ Good+ Left Flexion (S2) 4- Good- Extension (L3) 4+ Good+ PT-OP-Q Treatments Start: 11/23/20 13:39 Freq: Status: Active Protocol: Document 08/23/21 15:50 AMB (Rec: 08/23/21 16:06 AMB [id number]) Therapeutic Exercises Supine Exercises 4 Supine Exercise Name calf/hamstring stretch Reps/Minutes 30x2 3 Supine Exercise Name adductor stretch Reps/Minutes 30x3 2 Supine Exercise Name LTR Reps/Minutes 10 1 Supine Exercise Name Bridging Reps/Minutes 2x10 Sitting Exercises 1 Sitting Exercise Name sit to stand Reps/Minutes 10 Comments Milton for forward lean Standing Exercises 4 Standing Exercise Name mini lunges in // bars Reps/Minutes 10 3 Standing Exercise Name mini squat in // bars Reps/Minutes 10 Comments with focus on forward lean 2 Standing Exercise Name high knee marching in // bars Reps/Minutes 3 min 1 Standing Exercise Name sidestepping at railing Reps/Minutes 10'x2 Therapeutic Activity Therapeutic Activity 2 Name rolling Reps/Minutes ModA Comments difficult for pt to initiate 1 Name stand pivot transfer Reps/Minutes 2 Comments ModA Neuro Re-Education Treatment Balance Activities 1 Details baloon toss Comments difficulty throwing baloon- was able to bat at it, needed physical cues to avoid posterior lean PT-OP-T Assessment and Plan Start: 11/23/20 13:39 Freq: Status: Active Protocol: Document 08/23/21 15:50 AMB (Rec: 08/23/21 16:06 AMB [id number]) Physical Therapy Assessment Assessment Summary Assessment Crystal struggled with rolling today, better with standing balance but continues to tend to weightshift backwards heavily and need Mod/Max A at times to avoid posterior fall. Physical Therapy Plan Frequency and Duration Frequency of Treatment 1x/Week Duration of Treatment 12 weeks Plan of Care Start Date 06/29/21 Plan of Care End Date 09/21/21 Next Visit Focus/Plan Next Note Type Treatment Note Next Visit Plan Follow up on rolling. Continue transition to // bars for gait training instead of 4WW due to continued decline in vision/ right lean
--- NOTE | 2021-09-06 14:56 | PT.OTN ---
Current Diagnoses Parkinson's disease (09/06/21) Other abnormalities of gait and mobility (09/06/21) History of falling (09/06/21) Physical Therapy Treatment Note PT-OP-A Visit Information Start: 11/23/20 13:39 Freq: Status: Active Protocol: Document 09/06/21 13:45 AMB (Rec: 09/06/21 14:56 AMB [id number]) Out-Patient Physical Therapy Visit Information Visit Information Visit Type Treatment Note Visit Start Time 13:45 Visit Stop Time 14:30 Total Visit Minutes 45 Visit Number 33 PT-OP-B Current Condition Start: 11/23/20 13:39 Freq: Status: Active Protocol: Document 11/23/20 14:15 AMB (Rec: 11/23/20 14:28 AMB [id number]) Current Condition History of Current Condition Onset Date years Current Complaints fall history, Parkinsons History of Current Condition Crystal returns to physical therapy to continue to reduce her fall risk. She reports a bad fall going into the shower fell in October and hit her head. Multiple other small falls. She does report that she now uses the walker in the house. Also has noticed reaching for things that are out of reach causes falls. Lives in a two story house with her . Has a walk in shower without grab bars. L shoulder pain with stretching- did have clavicle fracture that she reports healed poory- sleeping on the shoulder is challenging. Difficult to get up from the floor- does have knee pain with kneeling. No longer doing the laundry- takes it to a laundromat. No longer wearing her glasses, no longer cooks. Doing BIG exercises, reads. My doesn't let me do anything any more. Prior Treatments and Tests BIG therapy recently have continued on with exercises Treatment Goals Patient/Caregiver Goals I'd like how to use my walker better, going in and out of doorways, getting in and out of the car. Prior Functional Status Baseline Function- ADL's Modified Independent Baseline Function- Mobility Modified Independent Current Functional Impairments (Reported) Functional Limitations- ADL's No longer does laundry, no longer cooks, falls with ADLS like bathing, dressing Personal Factors Other Personal Factors That May Effect Long history of falls, vision Therapy/Recovery issues, recall issues PT-OP-C Subjective Start: 11/23/20 13:39 Freq: Status: Active Protocol: Document 09/06/21 13:45 AMB (Rec: 09/06/21 14:56 AMB [id number]) OP-PT Subjective Patient Comments Patient Comments Wilber reports that Crystal had a fall right before coming to PT. He had gone to the bathroom and she got up and tried to walk per his report. She fell into some electronics. He reports she was uninjured. He also reports he is feeling very overwhelmed because he has been up since 3am, she kept getting up and trying to get out of bed. HE is feeling very overwhelmed. PT-OP-E Functional Tests Start: 11/23/20 13:39 Freq: Status: Active Protocol: Document 05/10/21 11:15 AMB (Rec: 05/10/21 16:08 AMB [email or web address]) Functional Tests Timed Up and Go (TUG) Score 1 minute 53 seconds Comments 4WW TUG Impairment Rating 100% Impaired (Score 20) PT-OP-G Mobility & Gait Start: 11/23/20 13:39 Freq: Status: Active Protocol: Document 11/23/20 14:15 AMB (Rec: 11/23/20 15:46 AMB [email or web address]) OP Mobility Evaluation Transfers Sit to Stand Poor habits--pt tends to pull on 4WW, stop before the chair and then walk a few steps from walker to chair-- all despite extensive prior training in correct usage. OP Gait Assessment Assistive Devices Assistive Device 4 Wheeled Walker Gait Deviations General Gait Pattern Decreased Stride Length, Decreased Feet Clearance, Festinating,Lateral Trunk Lean ,Narrow Based Gait Stair Climbing Evaluation Evaluation Level of Assist On Stairs Standby Assistance Devices Stair Climbing Assistive Devices Left Railing Technique/Endurance Stair Climbing Direction Ascend and Descend Stair Climbing Technique Step to Step Number of Steps Climbed 8 PT-OP-J Posture/Palpation/Skin Start: 11/23/20 13:39 Freq: Status: Active Protocol: Document 11/23/20 14:15 AMB (Rec: 11/23/20 15:46 AMB [email or web address]) Posture Evaluation Comments Posture Comments scoliosis, tends to have severe cervical flexion PT-OP-M Strength Start: 11/23/20 13:39 Freq: Status: Active Protocol: Document 11/23/20 14:15 AMB (Rec: 11/23/20 15:46 AMB [email or web address]) Hip Strength Hip Manual Muscle Testing Right Flexion (L2) 4+ Good+ Extension (S1) 4- Good- Abduction 4 Good Left Flexion (L2) 4+ Good+ Extension (S1) 4- Good- Abduction 4 Good Knee Strength Knee Manual Muscle Testing Right Flexion (S2) 4- Good- Extension (L3) 4+ Good+ Left Flexion (S2) 4- Good- Extension (L3) 4+ Good+ PT-OP-Q Treatments Start: 11/23/20 13:39 Freq: Status: Active Protocol: Document 09/06/21 13:45 AMB (Rec: 09/06/21 14:56 AMB [id number]) Therapeutic Exercises Sitting Exercises 1 Sitting Exercise Name sit to stand Reps/Minutes 10 Comments [place] for forward lean Standing Exercises 4 Standing Exercise Name mini lunges in // bars Reps/Minutes 10 3 Standing Exercise Name mini squat in // bars Reps/Minutes 10 Comments with focus on forward lean Gait Training Gait Activity 3 Description // bars Comments fwd, lateral, backwards walking- heavy use of UEs but overall safer than with 4WW Neuro Re-Education Treatment Balance Activities 1 Details balloon toss Comments difficulty throwing baloon- was able to bat at it, needed physical cues to avoid posterior lean PT-OP-T Assessment and Plan Start: 11/23/20 13:39 Freq: Status: Active Protocol: Document 09/06/21 13:45 AMB (Rec: 09/06/21 14:56 AMB [id number]) Physical Therapy Assessment Goals Three Impairment SIT TO STAND Short Term Goal (STG) Crystal will move from sit to stand and stand to sit with Milton and good forward lean without heavy posterior LOB. STG Duration PROGRESS MADE- can do sit to stand but stand to sit loses balance post Two Short Term Goal (STG) Crystal will walk with a 4WW for 100' with CGA over smooth terrain without LOB. STG Duration PROGRESS MADE- Milton for navigation, walker management One Impairment Transfers Short Term Goal (STG) Crystal will perform a squat pivot transfer with Milton. STG Duration 4 weeks [employer]fter [employer] Goal (LTG) Crystal and Wilber will perform a squat pivot transfer with good body mechanics. LTG Duration 8 weeks Assessment Summary Assessment Encouraged Wilber to follow up with Crystal's neurologist re considering hospice so that he has more support. Overall Crystal did ok today, definitely needs // bars continues to be challenged by sit to stand. Physical Therapy Plan Next Visit Focus/Plan Next Note Type Progress Note
--- NOTE | 2021-09-27 14:56 | PT-OP ANOTE ---
Pt no showed PT appt and prior Speech appt, ST had already called and left detailed voicemail.
--- NOTE | 2021-10-09 15:58 | PT.OTN ---
Current Diagnoses Parkinson's disease (10/09/21) Other abnormalities of gait and mobility (10/09/21) History of falling (10/09/21) Physical Therapy Treatment Note PT-OP-A Visit Information Start: 11/23/20 13:39 Freq: Status: Active Protocol: Document 10/09/21 14:33 AMB (Rec: 10/09/21 15:53 AMB [id number]) Out-Patient Physical Therapy Visit Information Visit Information Visit Type Progress Note Visit Start Time 14:30 Visit Stop Time 15:15 Total Visit Minutes 45 Visit Number 34 PT-OP-B Current Condition Start: 11/23/20 13:39 Freq: Status: Active Protocol: Document 11/23/20 14:15 AMB (Rec: 11/23/20 14:28 AMB [id number]) Current Condition History of Current Condition Onset Date years Current Complaints fall history, Parkinsons History of Current Condition Crystal returns to physical therapy to continue to reduce her fall risk. She reports a bad fall going into the shower fell in October and hit her head. Multiple other small falls. She does report that she now uses the walker in the house. Also has noticed reaching for things that are out of reach causes falls. Lives in a two story house with her . Has a walk in shower without grab bars. L shoulder pain with stretching- did have clavicle fracture that she reports healed poory- sleeping on the shoulder is challenging. Difficult to get up from the floor- does have knee pain with kneeling. No longer doing the laundry- takes it to a laundromat. No longer wearing her glasses, no longer cooks. Doing BIG exercises, reads. My doesn't let me do anything any more. Prior Treatments and Tests BIG therapy recently have continued on with exercises Treatment Goals Patient/Caregiver Goals I'd like how to use my walker better, going in and out of doorways, getting in and out of the car. Prior Functional Status Baseline Function- ADL's Modified Independent Baseline Function- Mobility Modified Independent Current Functional Impairments (Reported) Functional Limitations- ADL's No longer does laundry, no longer cooks, falls with ADLS like bathing, dressing Personal Factors Other Personal Factors That May Effect Long history of falls, vision Therapy/Recovery issues, recall issues PT-OP-C Subjective Start: 11/23/20 13:39 Freq: Status: Active Protocol: Document 10/09/21 14:33 AMB (Rec: 10/09/21 15:53 AMB [id number]) OP-PT Subjective Patient Comments Patient Comments Crystal fell out of bed this morning, Wilber is going to to be getting a new bed railing. PT-OP-E Functional Tests Start: 11/23/20 13:39 Freq: Status: Active Protocol: Document 05/10/21 11:15 AMB (Rec: 05/10/21 16:08 AMB [email or web address]) Functional Tests Timed Up and Go (TUG) Score 1 minute 53 seconds Comments 4WW TUG Impairment Rating 100% Impaired (Score 20) PT-OP-G Mobility & Gait Start: 11/23/20 13:39 Freq: Status: Active Protocol: Document 11/23/20 14:15 AMB (Rec: 11/23/20 15:46 AMB [email or web address]) OP Mobility Evaluation Transfers Sit to Stand Poor habits--pt tends to pull on 4WW, stop before the chair and then walk a few steps from walker to chair-- all despite extensive prior training in correct usage. OP Gait Assessment Assistive Devices Assistive Device 4 Wheeled Walker Gait Deviations General Gait Pattern Decreased Stride Length, Decreased Feet Clearance, Festinating,Lateral Trunk Lean ,Narrow Based Gait Stair Climbing Evaluation Evaluation Level of Assist On Stairs Standby Assistance Devices Stair Climbing Assistive Devices Left Railing Technique/Endurance Stair Climbing Direction Ascend and Descend Stair Climbing Technique Step to Step Number of Steps Climbed 8 PT-OP-J Posture/Palpation/Skin Start: 11/23/20 13:39 Freq: Status: Active Protocol: Document 11/23/20 14:15 AMB (Rec: 11/23/20 15:46 AMB [email or web address]) Posture Evaluation Comments Posture Comments scoliosis, tends to have severe cervical flexion PT-OP-M Strength Start: 11/23/20 13:39 Freq: Status: Active Protocol: Document 11/23/20 14:15 AMB (Rec: 11/23/20 15:46 AMB [email or web address]) Hip Strength Hip Manual Muscle Testing Right Flexion (L2) 4+ Good+ Extension (S1) 4- Good- Abduction 4 Good Left Flexion (L2) 4+ Good+ Extension (S1) 4- Good- Abduction 4 Good Knee Strength Knee Manual Muscle Testing Right Flexion (S2) 4- Good- Extension (L3) 4+ Good+ Left Flexion (S2) 4- Good- Extension (L3) 4+ Good+ PT-OP-Q Treatments Start: 11/23/20 13:39 Freq: Status: Active Protocol: Document 10/09/21 14:33 AMB (Rec: 10/09/21 15:53 AMB [id number]) Therapeutic Exercises Standing Exercises 4 Standing Exercise Name mini lunges in // bars Reps/Minutes 10 3 Standing Exercise Name mini squat in // bars Reps/Minutes 10 Comments with focus on forward lean 1 Standing Exercise Name sidestepping at railing Reps/Minutes 10'x2 Therapeutic Activity Therapeutic Activity 2 Name rolling Reps/Minutes ModA Comments difficult for pt to initiate both to right and left Gait Training Gait Activity 3 Description // bars Comments fwd walking and stepping over 2 nestor- Milton throughout, cues for sequencing, posture PT-OP-T Assessment and Plan Start: 11/23/20 13:39 Freq: Status: Active Protocol: Document 10/09/21 14:33 AMB (Rec: 10/09/21 15:53 AMB [id number]) Physical Therapy Assessment Goals Three Impairment SIT TO STAND Short Term Goal (STG) Crystal will move from sit to stand and stand to sit with Milton and good forward lean without heavy posterior LOB. STG Duration PROGRESS MADE- can do sit to stand but stand to sit loses balance post Two Short Term Goal (STG) Crystal will ambulate in the paralel bars for 20' with Milton for quality of life purposes as she continues to be motivated with gait. STG Duration 4 weeks One Impairment Transfers Short Term Goal (STG) Crystal will perform a squat pivot transfer with Milton. STG Duration MET Mcc Goal (LTG) Crystal and Wilber will perform a squat pivot transfer with good body mechanics. LTG Duration 8 weeks- per pt report does most of the work when transferring Assessment Summary Assessment Crystal continues to show declines consistent with her degenerative neurological disease process. Her neurologist has encouraged Wilbre to consider hospice care, but they have not yet been evaluated by hospice. Time spent today discussing that if hospice orders home health that we would discontinue outpatient therapy services. While we wait for hospice care, Crystal would continue to benefit from physical therapy to work on transfer safety and to reduce tone and fall risk. Physical Therapy Plan Frequency and Duration Frequency of Treatment 1x/Week Duration of Treatment 8 weeks Plan of Care Start Date 10/09/21 Plan of Care End Date 12/04/21 Therapeutic Interventions Therapeutic Interventions Balance Training,Gait Training ,Home Exercise Program,Manual Therapy,Neuromuscular Re- education,Self-Care/Home Management,Therapeutic Activities,Therapeutic Exercises Next Visit Focus/Plan Next Visit Plan // bars, rolling/bed mobility training. Safety with stand pivot transfers.
--- NOTE | 2021-10-09 15:58 | PT.OPPOC ---
Physical, Occupational & Speech Therapy At [facility] Current Diagnoses Parkinson's disease (10/09/21) Other abnormalities of gait and mobility (10/09/21) History of falling (10/09/21) Visit Care Team Role Provider Type Helen Burroughs MD Family Provider Physician Primary Care Provider Specialty: Internal Medicine Address: [address] [place] [address], [facility]: [email or web address] Attending Provider Referring Provider Specialty: Address: Phone: Fax: Email: Plan Of Care PT-OP-T Assessment and Plan Start: 11/23/20 13:39 Freq: Status: Active Protocol: Document 10/09/21 14:33 AMB (Rec: 10/09/21 15:53 AMB [id number]) Physical Therapy Assessment Goals Three Impairment SIT TO STAND Short Term Goal (STG) Crystal will move from sit to stand and stand to sit with Milton and good forward lean without heavy posterior LOB. STG Duration PROGRESS MADE- can do sit to stand but stand to sit loses balance post Two Short Term Goal (STG) Crystal will ambulate in the paralel bars for 20' with Milton for quality of life purposes as she continues to be motivated with gait. STG Duration 4 weeks One Impairment Transfers Short Term Goal (STG) Crystal will perform a squat pivot transfer with Milton. STG Duration MET [facility] Goal (LTG) Crystal and Wilber will perform a squat pivot transfer with good body mechanics. LTG Duration 8 weeks- per pt report does most of the work when transferring Assessment Summary Assessment Crystal continues to show declines consistent with her degenerative neurological disease process. Her neurologist has encouraged Wilber to consider hospice care, but they have not yet been evaluated by hospice. Time spent today discussing that if hospice orders home health that we would discontinue outpatient therapy services. While we wait for hospice care, Crystal would continue to benefit from physical therapy to work on transfer safety and to reduce tone and fall risk. Physical Therapy Plan Frequency and Duration Frequency of Treatment 1x/Week Duration of Treatment 8 weeks Plan of Care Start Date 10/09/21 Plan of Care End Date 12/04/21 Therapeutic Interventions Therapeutic Interventions Balance Training,Gait Training ,Home Exercise Program,Manual Therapy,Neuromuscular Re- education,Self-Care/Home Management,Therapeutic Activities,Therapeutic Exercises Next Visit Focus/Plan Next Visit Plan // bars, rolling/bed mobility training. Safety with stand pivot transfers. Plan of Care Dates Plan of Care Start Date 10/09/21 Plan of Care End Date 12/04/21 Electronically Signed by: Maribel Fernández, PT 10/09/21 [id number] Please Sign and Return: I have reviewed this Plan of Care and certify that the skilled therapy services above are required to meet the patient?s needs. Physician Signature Date Printed Name and Credentials Clinical Instructor Signature Printed Name and Credentials
--- NOTE | 2021-10-16 16:28 | PT.OTN ---
Current Diagnoses Parkinson's disease (10/16/21) Other abnormalities of gait and mobility (10/16/21) History of falling (10/16/21) Physical Therapy Treatment Note PT-OP-A Visit Information Start: 11/23/20 13:39 Freq: Status: Active Protocol: Document 10/16/21 10:50 AMB (Rec: 10/16/21 11:22 AMB [id number]) Out-Patient Physical Therapy Visit Information Visit Information Visit Type Treatment Note Visit Start Time 10:30 Visit Stop Time 11:15 Total Visit Minutes 45 Visit Number 35 PT-OP-B Current Condition Start: 11/23/20 13:39 Freq: Status: Active Protocol: Document 11/23/20 14:15 AMB (Rec: 11/23/20 14:28 AMB [id number]) Current Condition History of Current Condition Onset Date years Current Complaints fall history, Parkinsons History of Current Condition Crystal returns to physical therapy to continue to reduce her fall risk. She reports a bad fall going into the shower fell in October and hit her head. Multiple other small falls. She does report that she now uses the walker in the house. Also has noticed reaching for things that are out of reach causes falls. Lives in a two story house with her . Has a walk in shower without grab bars. L shoulder pain with stretching- did have clavicle fracture that she reports healed poory- sleeping on the shoulder is challenging. Difficult to get up from the floor- does have knee pain with kneeling. No longer doing the laundry- takes it to a laundromat. No longer wearing her glasses, no longer cooks. Doing BIG exercises, reads. My doesn't let me do anything any more. Prior Treatments and Tests BIG therapy recently have continued on with exercises Treatment Goals Patient/Caregiver Goals I'd like how to use my walker better, going in and out of doorways, getting in and out of the car. Prior Functional Status Baseline Function- ADL's Modified Independent Baseline Function- Mobility Modified Independent Current Functional Impairments (Reported) Functional Limitations- ADL's No longer does laundry, no longer cooks, falls with ADLS like bathing, dressing Personal Factors Other Personal Factors That May Effect Long history of falls, vision Therapy/Recovery issues, recall issues PT-OP-C Subjective Start: 11/23/20 13:39 Freq: Status: Active Protocol: Document 10/16/21 10:30 AMB (Rec: 10/19/21 16:28 AMB [id number]) OP-PT Subjective Patient Comments Patient Comments No more falls reported. PT-OP-E Functional Tests Start: 11/23/20 13:39 Freq: Status: Active Protocol: Document 05/10/21 11:15 AMB (Rec: 05/10/21 16:08 AMB [email or web address]) Functional Tests Timed Up and Go (TUG) Score 1 minute 53 seconds Comments 4WW TUG Impairment Rating 100% Impaired (Score 20) PT-OP-G Mobility & Gait Start: 11/23/20 13:39 Freq: Status: Active Protocol: Document 11/23/20 14:15 AMB (Rec: 11/23/20 15:46 AMB [email or web address]) OP Mobility Evaluation Transfers Sit to Stand Poor habits--pt tends to pull on 4WW, stop before the chair and then walk a few steps from walker to chair-- all despite extensive prior training in correct usage. OP Gait Assessment Assistive Devices Assistive Device 4 Wheeled Walker Gait Deviations General Gait Pattern Decreased Stride Length, Decreased Feet Clearance, Festinating,Lateral Trunk Lean ,Narrow Based Gait Stair Climbing Evaluation Evaluation Level of Assist On Stairs Standby Assistance Devices Stair Climbing Assistive Devices Left Railing Technique/Endurance Stair Climbing Direction Ascend and Descend Stair Climbing Technique Step to Step Number of Steps Climbed 8 PT-OP-J Posture/Palpation/Skin Start: 11/23/20 13:39 Freq: Status: Active Protocol: Document 11/23/20 14:15 AMB (Rec: 11/23/20 15:46 AMB [email or web address]) Posture Evaluation Comments Posture Comments scoliosis, tends to have severe cervical flexion PT-OP-M Strength Start: 11/23/20 13:39 Freq: Status: Active Protocol: Document 11/23/20 14:15 AMB (Rec: 11/23/20 15:46 AMB [email or web address]) Hip Strength Hip Manual Muscle Testing Right Flexion (L2) 4+ Good+ Extension (S1) 4- Good- Abduction 4 Good Left Flexion (L2) 4+ Good+ Extension (S1) 4- Good- Abduction 4 Good Knee Strength Knee Manual Muscle Testing Right Flexion (S2) 4- Good- Extension (L3) 4+ Good+ Left Flexion (S2) 4- Good- Extension (L3) 4+ Good+ PT-OP-Q Treatments Start: 11/23/20 13:39 Freq: Status: Active Protocol: Document 10/16/21 10:30 AMB (Rec: 10/19/21 16:28 AMB [id number]) Therapeutic Activity Therapeutic Activity seated fwd lean Name seated fwd lean Comments then progressed to sit to stand with focus on fwd lean- pt requires Milton 2 Name rolling Reps/Minutes ModA Comments difficult for pt to initiate both to right and left Gait Training Gait Activity 3 Description // bars Comments fwd walking and stepping over 2 nestor- Milton throughout, cues for sequencing, posture, sidestepping, backwards stepping requires Mod/MAXA PT-OP-T Assessment and Plan Start: 11/23/20 13:39 Freq: Status: Active Protocol: Document 10/16/21 10:30 AMB (Rec: 10/19/21 16:28 AMB [id number]) Physical Therapy Assessment Goals Three Impairment SIT TO STAND Short Term Goal (STG) Crystal will move from sit to stand and stand to sit with Milton and good forward lean without heavy posterior LOB. STG Duration PROGRESS MADE- can do sit to stand but stand to sit loses balance post Two Short Term Goal (STG) Crystal will ambulate in the paralel bars for 20' with Milton for quality of life purposes as she continues to be motivated with gait. STG Duration 4 weeks One Impairment Transfers Short Term Goal (STG) Crystal will perform a squat pivot transfer with Milton. STG Duration MET Intermediate Goal (LTG) Crystal and Wilber will perform a squat pivot transfer with good body mechanics. LTG Duration 8 weeks- per pt report does most of the work when transferring Assessment Summary Assessment Discussed hospice with Crystal and Wilber. Pt and are meeting with them on Saturday. Crystal continues to need more and more support to be safe with ambulation, but continues to voice that it is very important for her quality of life to keep moving. Discussed with Wilber that she really needs help to exercise at home, he voices feeling overwhelmed with just ADLs, encouraged to either think about hospice or adult family home program manager helping with home exercise since it is a quality of life concern. Physical Therapy Plan Next Visit Focus/Plan Next Note Type Treatment Note Next Visit Plan // bars, rolling/bed mobility training. Safety with stand pivot transfers.
--- NOTE | 2021-10-26 14:19 | PT.OTN ---
Current Diagnoses Parkinson's disease (10/26/21) Other abnormalities of gait and mobility (10/26/21) History of falling (10/26/21) Physical Therapy Treatment Note PT-OP-A Visit Information Start: 11/23/20 13:39 Freq: Status: Active Protocol: Document 10/26/21 13:00 AMB (Rec: 10/26/21 15:51 AMB [id number]) Out-Patient Physical Therapy Visit Information Visit Information Visit Type Treatment Note Visit Start Time 13:00 Visit Stop Time 13:45 Total Visit Minutes 45 Visit Number 36 PT-OP-B Current Condition Start: 11/23/20 13:39 Freq: Status: Active Protocol: Document 11/23/20 14:15 AMB (Rec: 11/23/20 14:28 AMB [id number]) Current Condition History of Current Condition Onset Date years Current Complaints fall history, Parkinsons History of Current Condition Ney returns to physical therapy to continue to reduce her fall risk. She reports a bad fall going into the shower fell in October and hit her head. Multiple other small falls. She does report that she now uses the walker in the house. Also has noticed reaching for things that are out of reach causes falls. Lives in a two story house with her . Has a walk in shower without grab bars. L shoulder pain with stretching- did have clavicle fracture that she reports healed poory- sleeping on the shoulder is challenging. Difficult to get up from the floor- does have knee pain with kneeling. No longer doing the laundry- takes it to a laundromat. No longer wearing her glasses, no longer cooks. Doing BIG exercises, reads. My doesn't let me do anything any more. Prior Treatments and Tests BIG therapy recently have continued on with exercises Treatment Goals Patient/Caregiver Goals I'd like how to use my walker better, going in and out of doorways, getting in and out of the car. Prior Functional Status Baseline Function- ADL's Modified Independent Baseline Function- Mobility Modified Independent Current Functional Impairments (Reported) Functional Limitations- ADL's No longer does laundry, no longer cooks, falls with ADLS like bathing, dressing Personal Factors Other Personal Factors That May Effect Long history of falls, vision Therapy/Recovery issues, recall issues PT-OP-C Subjective Start: 11/23/20 13:39 Freq: Status: Active Protocol: Document 10/26/21 13:00 AMB (Rec: 10/26/21 15:51 AMB [id number]) OP-PT Subjective Patient Comments Patient Comments Wilber reports he has some concerns about hospice, regarding what medicare would pay for with her custom wheelchair and speech devices. PT-OP-E Functional Tests Start: 11/23/20 13:39 Freq: Status: Active Protocol: Document 05/10/21 11:15 AMB (Rec: 05/10/21 16:08 AMB [email or web address]) Functional Tests Timed Up and Go (TUG) Score 1 minute 53 seconds Comments 4WW TUG Impairment Rating 100% Impaired (Score 20) PT-OP-G Mobility & Gait Start: 11/23/20 13:39 Freq: Status: Active Protocol: Document 11/23/20 14:15 AMB (Rec: 11/23/20 15:46 AMB [email or web address]) OP Mobility Evaluation Transfers Sit to Stand Poor habits--pt tends to pull on 4WW, stop before the chair and then walk a few steps from walker to chair-- all despite extensive prior training in correct usage. OP Gait Assessment Assistive Devices Assistive Device 4 Wheeled Walker Gait Deviations General Gait Pattern Decreased Stride Length, Decreased Feet Clearance, Festinating,Lateral Trunk Lean ,Narrow Based Gait Stair Climbing Evaluation Evaluation Level of Assist On Stairs Standby Assistance Devices Stair Climbing Assistive Devices Left Railing Technique/Endurance Stair Climbing Direction Ascend and Descend Stair Climbing Technique Step to Step Number of Steps Climbed 8 PT-OP-J Posture/Palpation/Skin Start: 11/23/20 13:39 Freq: Status: Active Protocol: Document 11/23/20 14:15 AMB (Rec: 11/23/20 15:46 AMB [email or web address]) Posture Evaluation Comments Posture Comments scoliosis, tends to have severe cervical flexion PT-OP-M Strength Start: 11/23/20 13:39 Freq: Status: Active Protocol: Document 11/23/20 14:15 AMB (Rec: 11/23/20 15:46 AMB [email or web address]) Hip Strength Hip Manual Muscle Testing Right Flexion (L2) 4+ Good+ Extension (S1) 4- Good- Abduction 4 Good Left Flexion (L2) 4+ Good+ Extension (S1) 4- Good- Abduction 4 Good Knee Strength Knee Manual Muscle Testing Right Flexion (S2) 4- Good- Extension (L3) 4+ Good+ Left Flexion (S2) 4- Good- Extension (L3) 4+ Good+ PT-OP-Q Treatments Start: 11/23/20 13:39 Freq: Status: Active Protocol: Document 10/26/21 13:00 AMB (Rec: 10/26/21 15:51 AMB [id number]) Therapeutic Exercises Sitting Exercises 5 Sitting Exercise Name forward lean Comments 10x in seated 4 Sitting Exercise Name alternating marching Comments challenging 3 Sitting Exercise Name upright seated posture Comments ney is tending to lean heavily to the right in seated and standing Therapeutic Activity Therapeutic Activity seated fwd lean Name seated fwd lean Comments then progressed to sit to stand with focus on fwd lean- pt requires Milton Gait Training Gait Activity 3 Description // bars Comments fwd walking and stepping over 2 nestor- Milton throughout, cues for sequencing, posture, sidestepping, backwards stepping requires Mod/MAXA PT-OP-T Assessment and Plan Start: 11/23/20 13:39 Freq: Status: Active Protocol: Document 10/26/21 13:00 AMB (Rec: 10/26/21 15:51 AMB [id number]) Physical Therapy Assessment Goals Three Impairment SIT TO STAND Short Term Goal (STG) Ney will move from sit to stand and stand to sit with Milton and good forward lean without heavy posterior LOB. STG Duration PROGRESS MADE- can do sit to stand but stand to sit loses balance post Two Short Term Goal (STG) Ney will ambulate in the paralel bars for 20' with Milton for quality of life purposes as she continues to be motivated with gait. STG Duration 4 weeks One Impairment Transfers Short Term Goal (STG) Ney will perform a squat pivot transfer with Milton. STG Duration [facility] [employer] Ad[facility] Goal (LTG) Ney and Wilber will perform a squat pivot transfer with good body mechanics. LTG Duration 8 weeks- per pt report does most of the work when transferring Assessment Summary Assessment Ney's gait and transfers continue to decline, she is now having a harder time maintaining an upright position while seated or standing and tends to collapse over to her right side. Physical Therapy Plan Next Visit Focus/Plan Next Note Type Treatment Note Next Visit Plan // bars, rolling/bed mobility training. Safety with stand pivot transfers.
--- NOTE | 2021-10-31 15:33 | PT.OTN ---
Current Diagnoses Parkinson's disease (10/31/21) Other abnormalities of gait and mobility (10/31/21) History of falling (10/31/21) Physical Therapy Treatment Note PT-OP-A Visit Information Start: 11/23/20 13:39 Freq: Status: Active Protocol: Document 10/31/21 14:30 AMB (Rec: 10/31/21 15:33 AMB [id number]) Out-Patient Physical Therapy Visit Information Visit Information Visit Type Treatment Note Visit Start Time 14:30 Visit Stop Time 15:15 Total Visit Minutes 45 Visit Number 37 PT-OP-B Current Condition Start: 11/23/20 13:39 Freq: Status: Active Protocol: Document 11/23/20 14:15 AMB (Rec: 11/23/20 14:28 AMB [id number]) Current Condition History of Current Condition Onset Date years Current Complaints fall history, Parkinsons History of Current Condition Crystal returns to physical therapy to continue to reduce her fall risk. She reports a bad fall going into the shower fell in October and hit her head. Multiple other small falls. She does report that she now uses the walker in the house. Also has noticed reaching for things that are out of reach causes falls. Lives in a two story house with her . Has a walk in shower without grab bars. L shoulder pain with stretching- did have clavicle fracture that she reports healed poory- sleeping on the shoulder is challenging. Difficult to get up from the floor- does have knee pain with kneeling. No longer doing the laundry- takes it to a laundromat. No longer wearing her glasses, no longer cooks. Doing BIG exercises, reads. My doesn't let me do anything any more. Prior Treatments and Tests BIG therapy recently have continued on with exercises Treatment Goals Patient/Caregiver Goals I'd like how to use my walker better, going in and out of doorways, getting in and out of the car. Prior Functional Status Baseline Function- ADL's Modified Independent Baseline Function- Mobility Modified Independent Current Functional Impairments (Reported) Functional Limitations- ADL's No longer does laundry, no longer cooks, falls with ADLS like bathing, dressing Personal Factors Other Personal Factors That May Effect Long history of falls, vision Therapy/Recovery issues, recall issues PT-OP-C Subjective Start: 11/23/20 13:39 Freq: Status: Active Protocol: Document 10/31/21 14:30 AMB (Rec: 10/31/21 15:33 AMB [id number]) OP-PT Subjective Patient Comments Patient Comments Crystal is in the waiting area, leaning heavily to the right. Wilber says that she leans to her right when at home on the couch as well. PT-OP-E Functional Tests Start: 11/23/20 13:39 Freq: Status: Active Protocol: Document 05/10/21 11:15 AMB (Rec: 05/10/21 16:08 AMB [email or web address]) Functional Tests Timed Up and Go (TUG) Score 1 minute 53 seconds Comments 4WW TUG Impairment Rating 100% Impaired (Score 20) PT-OP-G Mobility & Gait Start: 11/23/20 13:39 Freq: Status: Active Protocol: Document 11/23/20 14:15 AMB (Rec: 11/23/20 15:46 AMB [email or web address]) OP Mobility Evaluation Transfers Sit to Stand Poor habits--pt tends to pull on 4WW, stop before the chair and then walk a few steps from walker to chair-- all despite extensive prior training in correct usage. OP Gait Assessment Assistive Devices Assistive Device 4 Wheeled Walker Gait Deviations General Gait Pattern Decreased Stride Length, Decreased Feet Clearance, Festinating,Lateral Trunk Lean ,Narrow Based Gait Stair Climbing Evaluation Evaluation Level of Assist On Stairs Standby Assistance Devices Stair Climbing Assistive Devices Left Railing Technique/Endurance Stair Climbing Direction Ascend and Descend Stair Climbing Technique Step to Step Number of Steps Climbed 8 PT-OP-J Posture/Palpation/Skin Start: 11/23/20 13:39 Freq: Status: Active Protocol: Document 11/23/20 14:15 AMB (Rec: 11/23/20 15:46 AMB [email or web address]) Posture Evaluation Comments Posture Comments scoliosis, tends to have severe cervical flexion PT-OP-M Strength Start: 11/23/20 13:39 Freq: Status: Active Protocol: Document 11/23/20 14:15 AMB (Rec: 11/23/20 15:46 AMB [email or web address]) Hip Strength Hip Manual Muscle Testing Right Flexion (L2) 4+ Good+ Extension (S1) 4- Good- Abduction 4 Good Left Flexion (L2) 4+ Good+ Extension (S1) 4- Good- Abduction 4 Good Knee Strength Knee Manual Muscle Testing Right Flexion (S2) 4- Good- Extension (L3) 4+ Good+ Left Flexion (S2) 4- Good- Extension (L3) 4+ Good+ PT-OP-Q Treatments Start: 11/23/20 13:39 Freq: Status: Active Protocol: Document 10/31/21 14:30 AMB (Rec: 10/31/21 15:33 AMB [id number]) Gait Training Gait Activity 1 Description // bars 3 Description // bars Distance/Duration 2 laps, slow processing Comments fwd walking and stepping ModA throughout, cues for sequencing, posture, Neuro Re-Education Treatment Other Activities 1 Comments postural righting in front of mirror with ModA from therapist-Crystal abl eto maintain 50% of the time for short periods but not able to maintain. 3 Details forward lean with therapy ball 2 Details sitting balance Reps/Duration 5 min Comments Crystal requires ModA to maintain sitting balance, leans heavily to the right and backward, unable to maintain seated posture independently PT-OP-T Assessment and Plan Start: 11/23/20 13:39 Freq: Status: Active Protocol: Document 10/31/21 14:30 AMB (Rec: 10/31/21 15:33 AMB [id number]) Physical Therapy Assessment Goals Three Impairment SIT TO STAND Short Term Goal (STG) Crystal will move from sit to stand and stand to sit with Milton and good forward lean without heavy posterior LOB. STG Duration PROGRESS MADE- can do sit to stand but stand to sit loses balance post Two Short Term Goal (STG) Crystal will ambulate in the paralel bars for 20' with Milton for quality of life purposes as she continues to be motivated with gait. STG Duration 4 weeks One Impairment Transfers Short Term Goal (STG) Crystal will perform a squat pivot transfer with Milton. STG Duration [facility] Goal (LTG) Crystal and Wilber will perform a squat pivot transfer with good body mechanics. LTG Duration 8 weeks- per pt report does most of the work when transferring Assessment Summary Assessment Crystal had a really hard time today with postural righting. She leans heavily to the right, and needed physical assistance to maintain a more neutral posture. Physical Therapy Plan Next Visit Focus/Plan Next Note Type Treatment Note Next Visit Plan // bars, rolling/bed mobility training. Safety with stand pivot transfers.
--- NOTE | 2021-11-07 15:11 | PT.OTN ---
Current Diagnoses Parkinson's disease (11/07/21) Other abnormalities of gait and mobility (11/07/21) History of falling (11/07/21) Physical Therapy Treatment Note PT-OP-A Visit Information Start: 11/23/20 13:39 Freq: Status: Active Protocol: Document 11/07/21 13:47 AMB (Rec: 11/07/21 15:11 AMB [id number]) Out-Patient Physical Therapy Visit Information Visit Information Visit Type Treatment Note Visit Start Time 13:30 Visit Stop Time 13:45 Total Visit Minutes 45 Visit Number 38 PT-OP-B Current Condition Start: 11/23/20 13:39 Freq: Status: Active Protocol: Document 11/23/20 14:15 AMB (Rec: 11/23/20 14:28 AMB [id number]) Current Condition History of Current Condition Onset Date years Current Complaints fall history, Parkinsons History of Current Condition Crystal returns to physical therapy to continue to reduce her fall risk. She reports a bad fall going into the shower fell in October and hit her head. Multiple other small falls. She does report that she now uses the walker in the house. Also has noticed reaching for things that are out of reach causes falls. Lives in a two story house with her . Has a walk in shower without grab bars. L shoulder pain with stretching- did have clavicle fracture that she reports healed poory- sleeping on the shoulder is challenging. Difficult to get up from the floor- does have knee pain with kneeling. No longer doing the laundry- takes it to a laundromat. No longer wearing her glasses, no longer cooks. Doing BIG exercises, reads. My doesn't let me do anything any more. Prior Treatments and Tests BIG therapy recently have continued on with exercises Treatment Goals Patient/Caregiver Goals I'd like how to use my walker better, going in and out of doorways, getting in and out of the car. Prior Functional Status Baseline Function- ADL's Modified Independent Baseline Function- Mobility Modified Independent Current Functional Impairments (Reported) Functional Limitations- ADL's No longer does laundry, no longer cooks, falls with ADLS like bathing, dressing Personal Factors Other Personal Factors That May Effect Long history of falls, vision Therapy/Recovery issues, recall issues PT-OP-C Subjective Start: 11/23/20 13:39 Freq: Status: Active Protocol: Document 11/07/21 13:47 AMB (Rec: 11/07/21 15:11 AMB [id number]) OP-PT Subjective Patient Comments Patient Comments Wilber and Crystal are 30 minutes late due to being confused as to the start time of their appointment. PT-OP-E Functional Tests Start: 11/23/20 13:39 Freq: Status: Active Protocol: Document 05/10/21 11:15 AMB (Rec: 05/10/21 16:08 AMB [email or web address]) Functional Tests Timed Up and Go (TUG) Score 1 minute 53 seconds Comments 4WW TUG Impairment Rating 100% Impaired (Score 20) PT-OP-G Mobility & Gait Start: 11/23/20 13:39 Freq: Status: Active Protocol: Document 11/23/20 14:15 AMB (Rec: 11/23/20 15:46 AMB [email or web address]) OP Mobility Evaluation Transfers Sit to Stand Poor habits--pt tends to pull on 4WW, stop before the chair and then walk a few steps from walker to chair-- all despite extensive prior training in correct usage. OP Gait Assessment Assistive Devices Assistive Device 4 Wheeled Walker Gait Deviations General Gait Pattern Decreased Stride Length, Decreased Feet Clearance, Festinating,Lateral Trunk Lean ,Narrow Based Gait Stair Climbing Evaluation Evaluation Level of Assist On Stairs Standby Assistance Devices Stair Climbing Assistive Devices Left Railing Technique/Endurance Stair Climbing Direction Ascend and Descend Stair Climbing Technique Step to Step Number of Steps Climbed 8 PT-OP-J Posture/Palpation/Skin Start: 11/23/20 13:39 Freq: Status: Active Protocol: Document 11/23/20 14:15 AMB (Rec: 11/23/20 15:46 AMB [email or web address]) Posture Evaluation Comments Posture Comments scoliosis, tends to have severe cervical flexion PT-OP-M Strength Start: 11/23/20 13:39 Freq: Status: Active Protocol: Document 11/23/20 14:15 AMB (Rec: 11/23/20 15:46 AMB [email or web address]) Hip Strength Hip Manual Muscle Testing Right Flexion (L2) 4+ Good+ Extension (S1) 4- Good- Abduction 4 Good Left Flexion (L2) 4+ Good+ Extension (S1) 4- Good- Abduction 4 Good Knee Strength Knee Manual Muscle Testing Right Flexion (S2) 4- Good- Extension (L3) 4+ Good+ Left Flexion (S2) 4- Good- Extension (L3) 4+ Good+ PT-OP-Q Treatments Start: 11/23/20 13:39 Freq: Status: Active Protocol: Document 11/07/21 13:47 AMB (Rec: 11/07/21 15:11 AMB [id number]) Neuro Re-Education Treatment Other Activities 1 Comments postural righting in front of mirror with ModA from therapist-Crystal abl eto maintain 50% of the time for short periods but not able to maintain. 3 Details forward lean 2 Details sitting balance Reps/Duration 5 min Comments Crystal requires ModA to maintain sitting balance, but then was able to decrease to CGA and then SBA throughout session. PT-OP-T Assessment and Plan Start: 11/23/20 13:39 Freq: Status: Active Protocol: Document 11/07/21 13:47 AMB (Rec: 11/07/21 15:11 AMB [id number]) Physical Therapy Assessment Goals Three Impairment SIT TO STAND Short Term Goal (STG) Crystal will move from sit to stand and stand to sit with Milton and good forward lean without heavy posterior LOB. STG Duration PROGRESS MADE- can do sit to stand but stand to sit loses balance post Two Short Term Goal (STG) Crystal will ambulate in the paralel bars for 20' with Milton for quality of life purposes as she continues to be motivated with gait. STG Duration 4 weeks One Impairment Transfers Short Term Goal (STG) Crystal will perform a squat pivot transfer with Milton. STG Duration MET [employer] Professor Goal (LTG) Crystal and Wilber will perform a squat pivot transfer with good body mechanics. LTG Duration 8 weeks- per pt report does most of the work when transferring Assessment Summary Assessment Crystal did better today with the short appointment as far as keeping herself upright, was able to sit with SBA on the plinth.
--- NOTE | 2021-11-14 16:47 | PT.OTN ---
Current Diagnoses Parkinson's disease (11/14/21) Other abnormalities of gait and mobility (11/14/21) History of falling (11/14/21) Physical Therapy Treatment Note PT-OP-A Visit Information Start: 11/23/20 13:39 Freq: Status: Active Protocol: Document 11/14/21 13:00 AMB (Rec: 11/14/21 13:48 AMB [id number]) Out-Patient Physical Therapy Visit Information Visit Information Visit Type Treatment Note Visit Start Time 13:00 Visit Stop Time 13:45 Total Visit Minutes 45 Visit Number 39 PT-OP-B Current Condition Start: 11/23/20 13:39 Freq: Status: Active Protocol: Document 11/23/20 14:15 AMB (Rec: 11/23/20 14:28 AMB [id number]) Current Condition History of Current Condition Onset Date years Current Complaints fall history, Parkinsons History of Current Condition Crystal returns to physical therapy to continue to reduce her fall risk. She reports a bad fall going into the shower fell in October and hit her head. Multiple other small falls. She does report that she now uses the walker in the house. Also has noticed reaching for things that are out of reach causes falls. Lives in a two story house with her . Has a walk in shower without grab bars. L shoulder pain with stretching- did have clavicle fracture that she reports healed poory- sleeping on the shoulder is challenging. Difficult to get up from the floor- does have knee pain with kneeling. No longer doing the laundry- takes it to a laundromat. No longer wearing her glasses, no longer cooks. Doing BIG exercises, reads. My doesn't let me do anything any more. Prior Treatments and Tests BIG therapy recently have continued on with exercises Treatment Goals Patient/Caregiver Goals I'd like how to use my walker better, going in and out of doorways, getting in and out of the car. Prior Functional Status Baseline Function- ADL's Modified Independent Baseline Function- Mobility Modified Independent Current Functional Impairments (Reported) Functional Limitations- ADL's No longer does laundry, no longer cooks, falls with ADLS like bathing, dressing Personal Factors Other Personal Factors That May Effect Long history of falls, vision Therapy/Recovery issues, recall issues PT-OP-C Subjective Start: 11/23/20 13:39 Freq: Status: Active Protocol: Document 11/14/21 13:00 AMB (Rec: 11/14/21 13:48 AMB [id number]) OP-PT Subjective Patient Comments Patient Comments Wilber reports new research test engine evaluator, Wilver requests handout for her with appropriate exercises. PT-OP-E Functional Tests Start: 11/23/20 13:39 Freq: Status: Active Protocol: Document 05/10/21 11:15 AMB (Rec: 05/10/21 16:08 AMB [email or web address]) Functional Tests Timed Up and Go (TUG) Score 1 minute 53 seconds Comments 4WW TUG Impairment Rating 100% Impaired (Score 20) PT-OP-G Mobility & Gait Start: 11/23/20 13:39 Freq: Status: Active Protocol: Document 11/23/20 14:15 AMB (Rec: 11/23/20 15:46 AMB [email or web address]) OP Mobility Evaluation Transfers Sit to Stand Poor habits--pt tends to pull on 4WW, stop before the chair and then walk a few steps from walker to chair-- all despite extensive prior training in correct usage. OP Gait Assessment Assistive Devices Assistive Device 4 Wheeled Walker Gait Deviations General Gait Pattern Decreased Stride Length, Decreased Feet Clearance, Festinating,Lateral Trunk Lean ,Narrow Based Gait Stair Climbing Evaluation Evaluation Level of Assist On Stairs Standby Assistance Devices Stair Climbing Assistive Devices Left Railing Technique/Endurance Stair Climbing Direction Ascend and Descend Stair Climbing Technique Step to Step Number of Steps Climbed 8 PT-OP-J Posture/Palpation/Skin Start: 11/23/20 13:39 Freq: Status: Active Protocol: Document 11/23/20 14:15 AMB (Rec: 11/23/20 15:46 AMB [email or web address]) Posture Evaluation Comments Posture Comments scoliosis, tends to have severe cervical flexion PT-OP-M Strength Start: 11/23/20 13:39 Freq: Status: Active Protocol: Document 11/23/20 14:15 AMB (Rec: 11/23/20 15:46 AMB [email or web address]) Hip Strength Hip Manual Muscle Testing Right Flexion (L2) 4+ Good+ Extension (S1) 4- Good- Abduction 4 Good Left Flexion (L2) 4+ Good+ Extension (S1) 4- Good- Abduction 4 Good Knee Strength Knee Manual Muscle Testing Right Flexion (S2) 4- Good- Extension (L3) 4+ Good+ Left Flexion (S2) 4- Good- Extension (L3) 4+ Good+ PT-OP-Q Treatments Start: 11/23/20 13:39 Freq: Status: Active Protocol: Document 11/14/21 13:00 AMB (Rec: 11/14/21 13:48 [facility] [id number]) Therapeutic Exercises Standing Exercises 3 Standing Exercise Name mini squat in // bars Reps/Minutes 10 Comments with focus on forward lean 2 Standing Exercise Name high knee marching in // bars Reps/Minutes 3 min 1 Standing Exercise Name sidestepping at railing Reps/Minutes 10'x2 Gait Training Gait Activity 1 Description // bars Level of Assistance Milton- 1 LOB Surface firm PT-OP-T Assessment and Plan Start: 11/23/20 13:39 Freq: Status: Active Protocol: Document 11/14/21 13:[address] [facility] (Rec: 11/14/21 13:48 [facility] [id number]) Physical Therapy Assessment Assessment Summary Assessment Crystal was well motivated today with her exercises and gait. Difficulty with coordinating left/ right toe taps, but was able to coordinate left right marching. Physical Therapy Plan Next Visit Focus/Plan Next Note Type Treatment Note Next Visit Plan // bars, rolling/bed mobility training. Safety with stand pivot transfers.
--- NOTE | 2021-11-21 15:43 | PT.OTN ---
Current Diagnoses Parkinson's disease (11/21/21) Other abnormalities of gait and mobility (11/21/21) History of falling (11/21/21) Physical Therapy Treatment Note PT-OP-A Visit Information Start: 11/23/20 13:39 Freq: Status: Active Protocol: Document 11/21/21 14:30 AMB (Rec: 11/21/21 15:42 AMB [id number]) Out-Patient Physical Therapy Visit Information Visit Information Visit Type Treatment Note Visit Start Time 14:30 Visit Stop Time 15:15 Total Visit Minutes 45 Visit Number 40 PT-OP-B Current Condition Start: 11/23/20 13:39 Freq: Status: Active Protocol: Document 11/23/20 14:15 AMB (Rec: 11/23/20 14:28 AMB [id number]) Current Condition History of Current Condition Onset Date years Current Complaints fall history, Parkinsons History of Current Condition Crystal returns to physical therapy to continue to reduce her fall risk. She reports a bad fall going into the shower fell in October and hit her head. Multiple other small falls. She does report that she now uses the walker in the house. Also has noticed reaching for things that are out of reach causes falls. Lives in a two story house with her . Has a walk in shower without grab bars. L shoulder pain with stretching- did have clavicle fracture that she reports healed poory- sleeping on the shoulder is challenging. Difficult to get up from the floor- does have knee pain with kneeling. No longer doing the laundry- takes it to a laundromat. No longer wearing her glasses, no longer cooks. Doing BIG exercises, reads. My doesn't let me do anything any more. Prior Treatments and Tests BIG therapy recently have continued on with exercises Treatment Goals Patient/Caregiver Goals I'd like how to use my walker better, going in and out of doorways, getting in and out of the car. Prior Functional Status Baseline Function- ADL's Modified Independent Baseline Function- Mobility Modified Independent Current Functional Impairments (Reported) Functional Limitations- ADL's No longer does laundry, no longer cooks, falls with ADLS like bathing, dressing Personal Factors Other Personal Factors That May Effect Long history of falls, vision Therapy/Recovery issues, recall issues PT-OP-C Subjective Start: 11/23/20 13:39 Freq: Status: Active Protocol: Document 11/21/21 14:30 AMB (Rec: 11/21/21 15:42 AMB [id number]) OP-PT Subjective Patient Comments Patient Comments Crystal states caregiver has been doing exercises with her Saturday-Saturday PT-OP-E Functional Tests Start: 11/23/20 13:39 Freq: Status: Active Protocol: Document 05/10/21 11:15 AMB (Rec: 05/10/21 16:08 AMB [email or web address]) Functional Tests Timed Up and Go (TUG) Score 1 minute 53 seconds Comments 4WW TUG Impairment Rating 100% Impaired (Score 20) PT-OP-G Mobility & Gait Start: 11/23/20 13:39 Freq: Status: Active Protocol: Document 11/23/20 14:15 AMB (Rec: 11/23/20 15:46 AMB [email or web address]) OP Mobility Evaluation Transfers Sit to Stand Poor habits--pt tends to pull on 4WW, stop before the chair and then walk a few steps from walker to chair-- all despite extensive prior training in correct usage. OP Gait Assessment Assistive Devices Assistive Device 4 Wheeled Walker Gait Deviations General Gait Pattern Decreased Stride Length, Decreased Feet Clearance, Festinating,Lateral Trunk Lean ,Narrow Based Gait Stair Climbing Evaluation Evaluation Level of Assist On Stairs Standby Assistance Devices Stair Climbing Assistive Devices Left Railing Technique/Endurance Stair Climbing Direction Ascend and Descend Stair Climbing Technique Step to Step Number of Steps Climbed 8 PT-OP-J Posture/Palpation/Skin Start: 11/23/20 13:39 Freq: Status: Active Protocol: Document 11/23/20 14:15 AMB (Rec: 11/23/20 15:46 AMB [email or web address]) Posture Evaluation Comments Posture Comments scoliosis, tends to have severe cervical flexion PT-OP-M Strength Start: 11/23/20 13:39 Freq: Status: Active Protocol: Document 11/23/20 14:15 AMB (Rec: 11/23/20 15:46 AMB [email or web address]) Hip Strength Hip Manual Muscle Testing Right Flexion (L2) 4+ Good+ Extension (S1) 4- Good- Abduction 4 Good Left Flexion (L2) 4+ Good+ Extension (S1) 4- Good- Abduction 4 Good Knee Strength Knee Manual Muscle Testing Right Flexion (S2) 4- Good- Extension (L3) 4+ Good+ Left Flexion (S2) 4- Good- Extension (L3) 4+ Good+ PT-OP-Q Treatments Start: 11/23/20 13:39 Freq: Status: Active Protocol: Document 11/21/21 14:30 AMB (Rec: 11/21/21 15:42 AMB [id number]) Therapeutic Exercises Standing Exercises 4 Standing Exercise Name calf stretch Reps/Minutes 30x4 Comments on DUDLEY and in stride stance Milton for foot placement 3 Standing Exercise Name mini squat in // bars Reps/Minutes 10 Comments with focus on forward lean 2 Standing Exercise Name high knee marching in // bars Reps/Minutes 3 min 1 Standing Exercise Name sidestepping at railing Reps/Minutes 10'x2 Gait Training Gait Activity 1 Description // bars Level of Assistance Milton- 1 LOB Surface firm Neuro Re-Education Treatment Balance Activities 3 Details standing balance COG over SHU Comments // bars 2 Comments Weightshifting- challenging- pt tends to to plantarflex foot 1 Comments Forward stepping at railing, cued high stepping Other Activities 1 Comments postural righting in front of mirror with ModA from therapist-Crystal abl eto maintain 50% of the time for short periods but not able to maintain. 3 Details forward lean 2 Details sitting balance Reps/Duration 5 min Comments Crystal requires ModA to maintain sitting balance, but then was able to decrease to CGA and then SBA throughout session. PT-OP-T Assessment and Plan Start: 11/23/20 13:39 Freq: Status: Active Protocol: Document 11/21/21 14:30 AMB (Rec: 11/21/21 15:42 AMB [id number]) Physical Therapy Assessment Goals Three Impairment SIT TO STAND Short Term Goal (STG) Crystal will move from sit to stand and stand to sit with Milton and good forward lean without heavy posterior LOB. STG Duration PROGRESS MADE- can do sit to stand but stand to sit loses balance post Two Short Term Goal (STG) Crystal will ambulate in the paralel bars for 20' with Milton for quality of life purposes as she continues to be motivated with gait. STG Duration 4 weeks One Impairment Transfers Short Term Goal (STG) Crystal will perform a squat pivot transfer with Milton. STG Duration MET Wire Straightener Goal (LTG) Crystal and Wilber will perform a squat pivot transfer with good body mechanics. LTG Duration 8 weeks- per pt report does most of the work when transferring Assessment Summary Assessment Crystal continues to be able to flex forward with exercises when cued, but flexing trunk forward in standing to sit back down safely continues to be challenging. Pt does continue to enjoy exercises. Physical Therapy Plan Next Visit Focus/Plan Next Note Type Treatment Note Next Visit Plan // bars, rolling/bed mobility training. Safety with stand pivot transfers.
--- NOTE | 2021-12-05 16:00 | PT.OPPOC ---
Physical, Occupational & Speech Therapy At [facility] Current Diagnoses Parkinson's disease (12/05/21) Other abnormalities of gait and mobility (12/05/21) History of falling (12/05/21) Visit Care Team Role Provider Type Helen Burroughs MD Family Provider Physician Primary Care Provider Specialty: Internal Medicine Address: [address] [place] [address], [facility] Email: [email or web address] Attending Provider Referring Provider Specialty: Address: Phone: Fax: Email: Plan Of Care PT-OP-T Assessment and Plan Start: 11/23/20 13:39 Freq: Status: Active Protocol: Document 12/05/21 15:00 AMB (Rec: 12/05/21 16:08 AMB [id number]) Physical Therapy Assessment Goals Three Impairment SIT TO STAND Short Term Goal (STG) Crystal will move from sit to stand and stand to sit with Milton and good forward lean without heavy posterior LOB. STG Duration Heavy posterior LOB at times Two Short Term Goal (STG) Crystal will ambulate in the paralel bars for 20' with Milton for quality of life purposes as she continues to be motivated with gait. STG Duration MET One Impairment Transfers Short Term Goal (STG) Crystal will perform a squat pivot transfer with Milton. STG Duration MET Custodial Goal (LTG) Crystal and Wilber will perform a squat pivot transfer with good body mechanics. LTG Duration 8 weeks- per pt report does most of the work when transferring Assessment Summary Assessment Crystal continues to be motivated when coming to physical therapy. She does have a home care aide who is helping her with standing exercises at home, and has shown good improvement with those recently. Her disease continues to progress and she is needing heavier cueing/more prossessing time to perform exercises/ gait activities. She continues to need Min/ModA for sit to stand and despite being able to lean forward for exercises, has a difficult time moving that into her transfers at home. 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 Overall she continues to benefit from physical therapy to manage her decline and provide family/caregiver with changing instructions for her mobility as she declines. Physical Therapy Plan Frequency and Duration Frequency of Treatment 1x/Week Duration of Treatment 12 weeks Plan of Care Start Date 12/05/21 Plan of Care End Date 02/27/22 Therapeutic Interventions Therapeutic Interventions Balance Training,Gait Training ,Home Exercise Program,Manual Therapy,Neuromuscular Re- education,Self-Care/Home Management,Therapeutic Activities,Therapeutic Exercises Next Visit Focus/Plan Next Note Type Treatment Note Next Visit Plan // bars, rolling/bed mobility training. Safety with stand pivot transfers. Plan of Care Dates Plan of Care Start Date 12/05/21 Plan of Care End Date 02/27/22 Electronically Signed by: Maribel Fernández, PT 12/10/21 [id number] If you are in agreement with this Plan of Care, please return a signed and dated copy. I have reviewed this Plan of Care and certify that the skilled therapy services above are required to meet the patient?s needs. Physician Signature Date Printed Name and Credentials Clinical Instructor Signature Printed Name and Credentials
--- NOTE | 2021-12-05 16:00 | PT.OTN ---
Current Diagnoses Parkinson's disease (12/05/21) Other abnormalities of gait and mobility (12/05/21) History of falling (12/05/21) Physical Therapy Treatment Note PT-OP-A Visit Information Start: 11/23/20 13:39 Freq: Status: Active Protocol: Document 12/05/21 15:00 AMB (Rec: 12/05/21 16:08 AMB [id number]) Out-Patient Physical Therapy Visit Information Visit Information Visit Type Treatment Note Visit Start Time 14:30 Visit Stop Time 15:15 Total Visit Minutes 45 Visit Number 40 PT-OP-B Current Condition Start: 11/23/20 13:39 Freq: Status: Active Protocol: Document 11/23/20 14:15 AMB (Rec: 11/23/20 14:28 AMB [id number]) Current Condition History of Current Condition Onset Date years Current Complaints fall history, Parkinsons History of Current Condition Crystal returns to physical therapy to continue to reduce her fall risk. She reports a bad fall going into the shower fell in October and hit her head. Multiple other small falls. She does report that she now uses the walker in the house. Also has noticed reaching for things that are out of reach causes falls. Lives in a two story house with her . Has a walk in shower without grab bars. L shoulder pain with stretching- did have clavicle fracture that she reports healed poory- sleeping on the shoulder is challenging. Difficult to get up from the floor- does have knee pain with kneeling. No longer doing the laundry- takes it to a laundromat. No longer wearing her glasses, no longer cooks. Doing BIG exercises, reads. My doesn't let me do anything any more. Prior Treatments and Tests BIG therapy recently have continued on with exercises Treatment Goals Patient/Caregiver Goals I'd like how to use my walker better, going in and out of doorways, getting in and out of the car. Prior Functional Status Baseline Function- ADL's Modified Independent Baseline Function- Mobility Modified Independent Current Functional Impairments (Reported) Functional Limitations- ADL's No longer does laundry, no longer cooks, falls with ADLS like bathing, dressing Personal Factors Other Personal Factors That May Effect Long history of falls, vision Therapy/Recovery issues, recall issues PT-OP-C Subjective Start: 11/23/20 13:39 Freq: Status: Active Protocol: Document 12/05/21 14:30 AMB (Rec: 12/10/21 11:15 AMB [id number]) OP-PT Subjective Patient Comments Patient Comments Pt reports she is doing well, Wilber states no new falls, caregiver is coming for 4 hrs/ day 5 days a week and is doing exercises with her. PT-OP-E Functional Tests Start: 11/23/20 13:39 Freq: Status: Active Protocol: Document 05/10/21 11:15 AMB (Rec: 05/10/21 16:08 AMB [id number]) Functional Tests Timed Up and Go (TUG) Score 1 minute 53 seconds Comments 4WW TUG Impairment Rating 100% Impaired (Score 20) PT-OP-G Mobility & Gait Start: 11/23/20 13:39 Freq: Status: Active Protocol: Document 11/23/20 14:15 AMB (Rec: 11/23/20 15:46 AMB [id number]) OP Mobility Evaluation Transfers Sit to Stand Poor habits--pt tends to pull on 4WW, stop before the chair and then walk a few steps from walker to chair-- all despite extensive prior training in correct usage. OP Gait Assessment Assistive Devices Assistive Device 4 Wheeled Walker Gait Deviations General Gait Pattern Decreased Stride Length, Decreased Feet Clearance, Festinating,Lateral Trunk Lean ,Narrow Based Gait Stair Climbing Evaluation Evaluation Level of Assist On Stairs Standby Assistance Devices Stair Climbing Assistive Devices Left Railing Technique/Endurance Stair Climbing Direction Ascend and Descend Stair Climbing Technique Step to Step Number of Steps Climbed 8 PT-OP-J Posture/Palpation/Skin Start: 11/23/20 13:39 Freq: Status: Active Protocol: Document 11/23/20 14:15 AMB (Rec: 11/23/20 15:46 AMB [email or web address]) Posture Evaluation Comments Posture Comments scoliosis, tends to have severe cervical flexion PT-OP-M Strength Start: 11/23/20 13:39 Freq: Status: Active Protocol: Document 11/23/20 14:15 AMB (Rec: 11/23/20 15:46 AMB [email or web address]) Hip Strength Hip Manual Muscle Testing Right Flexion (L2) 4+ Good+ Extension (S1) 4- Good- Abduction 4 Good Left Flexion (L2) 4+ Good+ Extension (S1) 4- Good- Abduction 4 Good Knee Strength Knee Manual Muscle Testing Right Flexion (S2) 4- Good- Extension (L3) 4+ Good+ Left Flexion (S2) 4- Good- Extension (L3) 4+ Good+ PT-OP-Q Treatments Start: 11/23/20 13:39 Freq: Status: Active Protocol: Document 12/05/21 14:30 AMB (Rec: 12/10/21 11:15 AMB [id number]) Therapeutic Exercises Standing Exercises 3 Standing Exercise Name mini squat in // bars Reps/Minutes 10 Comments with focus on forward lean 2 Standing Exercise Name high knee marching in // bars Reps/Minutes 3 min Gait Training Gait Activity 1 Description // bars Level of Assistance Milton- no LOB Surface firm Comments fwd/backward/side, pt needs assist for motor planning, cue big movement, slow processing PT-OP-T Assessment and Plan Start: 11/23/20 13:39 Freq: Status: Active Protocol: Document 12/05/21 15:00 AMB (Rec: 12/05/21 16:08 AMB [id number]) Physical Therapy Assessment Goals Three Impairment SIT TO STAND Short Term Goal (STG) Crystal will move from sit to stand and stand to sit with Milton and good forward lean without heavy posterior LOB. STG Duration Heavy posterior LOB at times Two Short Term Goal (STG) Crystal will ambulate in the paralel bars for 20' with Milton for quality of life purposes as she continues to be motivated with gait. STG Duration MET One Impairment Transfers Short Term Goal (STG) Crystal will perform a squat pivot transfer with Milton. STG Duration MET Nursing Home Goal (LTG) Crystal and Wilber will perform a squat pivot transfer with good body mechanics. LTG Duration 8 weeks- per pt report does most of the work when transferring Assessment Summary Assessment Crystal continues to be motivated when coming to physical therapy. She does have a home designer who is helping her with standing exercises at home, and has shown good improvement with those recently. Her disease continues to progress and she is needing heavier cueing/more prossessing time to perform exercises/ gait activities. She continues to need Min/ModA for sit to stand and despite being able to lean forward for exercises, has a difficult time moving that into her transfers at home. 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 Overall she continues to benefit from physical therapy to manage her decline and provide family/caregiver with changing instructions for her mobility as she declines. Physical Therapy Plan Frequency and Duration Frequency of Treatment 1x/Week Duration of Treatment 12 weeks Plan of Care Start Date 12/05/21 Plan of Care End Date 02/27/22 Therapeutic Interventions Therapeutic Interventions Balance Training,Gait Training ,Home Exercise Program,Manual Therapy,Neuromuscular Re- education,Self-Care/Home Management,Therapeutic Activities,Therapeutic Exercises Next Visit Focus/Plan Next Note Type Treatment Note Next Visit Plan // bars, rolling/bed mobility training. Safety with stand pivot transfers.
--- NOTE | 2021-12-22 14:53 | PT.OTN ---
Current Diagnoses Parkinson's disease (12/22/21) Other abnormalities of gait and mobility (12/22/21) History of falling (12/22/21) Physical Therapy Treatment Note PT-OP-A Visit Information Start: 11/23/20 13:39 Freq: Status: Active Protocol: Document 12/22/21 14:13 AMB (Rec: 12/22/21 14:51 AMB [id number]) Out-Patient Physical Therapy Visit Information Visit Information Visit Type Treatment Note Visit Start Time 13:45 Visit Stop Time 14:30 Total Visit Minutes 45 Visit Number 40 PT-OP-B Current Condition Start: 11/23/20 13:39 Freq: Status: Active Protocol: Document 11/23/20 14:15 AMB (Rec: 11/23/20 14:28 AMB [id number]) Current Condition History of Current Condition Onset Date years Current Complaints fall history, Parkinsons History of Current Condition Crystal returns to physical therapy to continue to reduce her fall risk. She reports a bad fall going into the shower fell in October and hit her head. Multiple other small falls. She does report that she now uses the walker in the house. Also has noticed reaching for things that are out of reach causes falls. Lives in a two story house with her . Has a walk in shower without grab bars. L shoulder pain with stretching- did have clavicle fracture that she reports healed poory- sleeping on the shoulder is challenging. Difficult to get up from the floor- does have knee pain with kneeling. No longer doing the laundry- takes it to a laundromat. No longer wearing her glasses, no longer cooks. Doing BIG exercises, reads. My doesn't let me do anything any more. Prior Treatments and Tests BIG therapy recently have continued on with exercises Treatment Goals Patient/Caregiver Goals I'd like how to use my walker better, going in and out of doorways, getting in and out of the car. Prior Functional Status Baseline Function- ADL's Modified Independent Baseline Function- Mobility Modified Independent Current Functional Impairments (Reported) Functional Limitations- ADL's No longer does laundry, no longer cooks, falls with ADLS like bathing, dressing Personal Factors Other Personal Factors That May Effect Long history of falls, vision Therapy/Recovery issues, recall issues PT-OP-C Subjective Start: 11/23/20 13:39 Freq: Status: Active Protocol: Document 12/22/21 14:13 AMB (Rec: 12/22/21 14:51 AMB [id number]) OP-PT Subjective Patient Comments Patient Comments Crystal is going to be getting botox in her neck and hand. Wilber continues to consider hospice. PT-OP-E Functional Tests Start: 11/23/20 13:39 Freq: Status: Active Protocol: Document 05/10/21 11:15 AMB (Rec: 05/10/21 16:08 AMB [email or web address]) Functional Tests Timed Up and Go (TUG) Score 1 minute 53 seconds Comments 4WW TUG Impairment Rating 100% Impaired (Score 20) PT-OP-G Mobility & Gait Start: 11/23/20 13:39 Freq: Status: Active Protocol: Document 11/23/20 14:15 AMB (Rec: 11/23/20 15:46 AMB [email or web address]) OP Mobility Evaluation Transfers Sit to Stand Poor habits--pt tends to pull on 4WW, stop before the chair and then walk a few steps from walker to chair-- all despite extensive prior training in correct usage. OP Gait Assessment Assistive Devices Assistive Device 4 Wheeled Walker Gait Deviations General Gait Pattern Decreased Stride Length, Decreased Feet Clearance, Festinating,Lateral Trunk Lean ,Narrow Based Gait Stair Climbing Evaluation Evaluation Level of Assist On Stairs Standby Assistance Devices Stair Climbing Assistive Devices Left Railing Technique/Endurance Stair Climbing Direction Ascend and Descend Stair Climbing Technique Step to Step Number of Steps Climbed 8 PT-OP-J Posture/Palpation/Skin Start: 11/23/20 13:39 Freq: Status: Active Protocol: Document 11/23/20 14:15 AMB (Rec: 11/23/20 15:46 AMB [email or web address]) Posture Evaluation Comments Posture Comments scoliosis, tends to have severe cervical flexion PT-OP-M Strength Start: 11/23/20 13:39 Freq: Status: Active Protocol: Document 11/23/20 14:15 AMB (Rec: 11/23/20 15:46 AMB [email or web address]) Hip Strength Hip Manual Muscle Testing Right Flexion (L2) 4+ Good+ Extension (S1) 4- Good- Abduction 4 Good Left Flexion (L2) 4+ Good+ Extension (S1) 4- Good- Abduction 4 Good Knee Strength Knee Manual Muscle Testing Right Flexion (S2) 4- Good- Extension (L3) 4+ Good+ Left Flexion (S2) 4- Good- Extension (L3) 4+ Good+ PT-OP-Q Treatments Start: 11/23/20 13:39 Freq: Status: Active Protocol: Document 12/22/21 14:13 AMB (Rec: 12/22/21 14:51 AMB [id number]) Therapeutic Exercises Standing Exercises 4 Standing Exercise Name sit to stand Comments encourage forward lean 3 Standing Exercise Name mini squat in // bars Reps/Minutes 10 Comments with focus on forward lean 2 Standing Exercise Name high knee marching in // bars Reps/Minutes 3 min 1 Standing Exercise Name calf stretch Reps/Minutes 30x2 Gait Training Gait Activity 1 Description // bars Level of Assistance Milton/ModA as fatigued Surface firm Comments fwd/backward/side, pt needs assist for motor planning, cue big movement, slow processing PT-OP-T Assessment and Plan Start: 11/23/20 13:39 Freq: Status: Active Protocol: Document 12/22/21 14:13 AMB (Rec: 12/22/21 14:51 AMB [id number]) Physical Therapy Assessment Goals Three Impairment SIT TO STAND Short Term Goal (STG) Crystal will move from sit to stand and stand to sit with Milton and good forward lean without heavy posterior LOB. STG Duration Heavy posterior LOB at times Two Short Term Goal (STG) Crystal will ambulate in the paralel bars for 20' with Milton for quality of life purposes as she continues to be motivated with gait. STG Duration MET One Impairment Transfers Short Term Goal (STG) Crystal will perform a squat pivot transfer with Milton. STG Duration MET Power Generation Plant Operator Goal (LTG) Crystal and Wilber will perform a squat pivot transfer with good body mechanics. LTG Duration 8 weeks- per pt report does most of the work when transferring Assessment Summary Assessment Crystal is having more difficulty following commands for her exercises. Wilber is wondering what we can do about her hand. Suggested hand therapy to consider splints, but she continues to have pain with passive range. Pt needed Min-ModA to prevent LOB especially as she fatigued. Physical Therapy Plan Next Visit Focus/Plan Next Note Type Treatment Note Next Visit Plan // bars, rolling/bed mobility training. Safety with stand pivot transfers.
--- NOTE | 2022-01-25 07:42 | PT.OPDS ---
Current Diagnoses Parkinson's disease (12/22/21) Other abnormalities of gait and mobility (12/22/21) History of falling (12/22/21) Visit Care Team Role Provider Type Helen Burroughs MD Family Provider Physician Primary Care Provider Specialty: Internal Medicine Address: [address] [place] [address], [id number] Email: [email or web address] Attending Provider Referring Provider Specialty: Address: Phone: Fax: Email: Visit Number Visit Number [phone] Discharge Summary PT-OP-B Current Condition Start: 11/23/20 13:39 Freq: Status: Active Protocol: Document 11/23/20 14:15 AMB (Rec: 11/23/20 14:28 AMB [id number]) Current Condition History of Current Condition Onset Date years Current Complaints fall history, Parkinsons History of Current Condition Crystal returns to physical therapy to continue to reduce her fall risk. She reports a bad fall going into the shower fell in October and hit her head. Multiple other small falls. She does report that she now uses the walker in the house. Also has noticed reaching for things that are out of reach causes falls. Lives in a two story house with her . Has a walk in shower without grab bars. L shoulder pain with stretching- did have clavicle fracture that she reports healed poory- sleeping on the shoulder is challenging. Difficult to get up from the floor- does have knee pain with kneeling. No longer doing the laundry- takes it to a laundromat. No longer wearing her glasses, no longer cooks. Doing BIG exercises, reads. My doesn't let me do anything any more. Prior Treatments and Tests BIG therapy recently have continued on with exercises Treatment Goals Patient/Caregiver Goals I'd like how to use my walker better, going in and out of doorways, getting in and out of the car. Prior Functional Status Baseline Function- ADL's Modified Independent Baseline Function- Mobility Modified Independent Current Functional Impairments (Reported) Functional Limitations- ADL's No longer does laundry, no longer cooks, falls with ADLS like bathing, dressing Personal Factors Other Personal Factors That May Effect Long history of falls, vision Therapy/Recovery issues, recall issues PT-OP-C Subjective Start: 11/23/20 13:39 Freq: Status: Active Protocol: Document 12/22/21 14:13 AMB (Rec: 12/22/21 14:51 AMB [id number]) OP-PT Subjective Patient Comments Patient Comments Crystal is going to be getting botox in her neck and hand. Wilber continues to consider hospice. PT-OP-E Functional Tests Start: 11/23/20 13:39 Freq: Status: Active Protocol: Document 05/10/21 11:15 AMB (Rec: 05/10/21 16:08 AMB [email or web address]) Functional Tests Timed Up and Go (TUG) Score 1 minute 53 seconds Comments 4WW TUG Impairment Rating 100% Impaired (Score 20) PT-OP-G Mobility & Gait Start: 11/23/20 13:39 Freq: Status: Active Protocol: Document 11/23/20 14:15 AMB (Rec: 11/23/20 15:46 AMB [email or web address]) OP Mobility Evaluation Transfers Sit to Stand Poor habits--pt tends to pull on 4WW, stop before the chair and then walk a few steps from walker to chair-- all despite extensive prior training in correct usage. OP Gait Assessment Assistive Devices Assistive Device 4 Wheeled Walker Gait Deviations General Gait Pattern Decreased Stride Length, Decreased Feet Clearance, Festinating,Lateral Trunk Lean ,Narrow Based Gait Stair Climbing Evaluation Evaluation Level of Assist On Stairs Standby Assistance Devices Stair Climbing Assistive Devices Left Railing Technique/Endurance Stair Climbing Direction Ascend and Descend Stair Climbing Technique Step to Step Number of Steps Climbed 8 PT-OP-J Posture/Palpation/Skin Start: 11/23/20 13:39 Freq: Status: Active Protocol: Document 11/23/20 14:15 AMB (Rec: 11/23/20 15:46 AMB [email or web address]) Posture Evaluation Comments Posture Comments scoliosis, tends to have severe cervical flexion PT-OP-M Strength Start: 11/23/20 13:39 Freq: Status: Active Protocol: Document 11/23/20 14:15 AMB (Rec: 11/23/20 15:46 AMB [email or web address]) Hip Strength Hip Manual Muscle Testing Right Flexion (L2) 4+ Good+ Extension (S1) 4- Good- Abduction 4 Good Left Flexion (L2) 4+ Good+ Extension (S1) 4- Good- Abduction 4 Good Knee Strength Knee Manual Muscle Testing Right Flexion (S2) 4- Good- Extension (L3) 4+ Good+ Left Flexion (S2) 4- Good- Extension (L3) 4+ Good+ PT-OP-T Assessment and Plan Start: 11/23/20 13:39 Freq: Status: Active Protocol: Document 01/25/22 07:37 AMB (Rec: 01/25/22 07:42 AMB [id number]) Physical Therapy Assessment Goals Three Impairment SIT TO STAND Short Term Goal (STG) Crystal will move from sit to stand and stand to sit with Milton and good forward lean without heavy posterior LOB. STG Duration Heavy posterior LOB at times Two Short Term Goal (STG) Crystal will ambulate in the paralel bars for 20' with Milton for quality of life purposes as she continues to be motivated with gait. STG Duration MET One Impairment Transfers Short Term Goal (STG) Crystal will perform a squat pivot transfer with Milton. STG Duration MET Charge Authorizer Goal (LTG) Aylin will perform a squat pivot transfer with good body mechanics. LTG Duration 8 weeks- per pt report does most of the work when transferring Assessment Summary Assessment Aylin have decided to go on hopsice. Therefore she is discharged from outpatient PT. Overall in her physical therapy she continued to decline, given her neurodegenerative disease process. At the end of her physical therapy care she was using a w/c for all mobility and ambulating in // bars with PT only. Transfers continued to need cueing to prevent significant posterior lean. Physical Therapy Plan Discharge Physical Therapy Discharge Reasons Change in Medical Status
== END 2022-01-29 14:33 ==
LOC: PHYS 13:45
PROVIDERS: Family Provider Internal Medicine; PCP Internal Medicine
DX: G20 Parkinson's disease (principal); Z91.81 History of falling; R26.89 Other abnormalities of gait and mobility
CPT/HCPCS: 93010; 97110; 97112; 97116; 97162; 97530; 97535

== ENCOUNTER 2021-12-27 14:30 | Outpatient (RCR) | payer MEDICARE, OTHER, SELFPAY ==
--- NOTE | 2020-11-30 18:09 | ST.OPIE ---
Visit Care Team Role Provider Type Helen Burroughs MD Family Provider Physician Primary Care Provider Specialty: Internal Medicine Address: [address] [place] [address], [id number] Email: [email or web address] Attending Provider Referring Provider Specialty: Address: Phone: Fax: Email: Speech-Language Pathology Initial Evaluation LEG ASSEMBLER Adult Cognitive Linguistic Eval Start: 11/30/20 16:59 Freq: Status: Active Protocol: Document 11/30/20 16:59 BUCK (Rec: 11/30/20 18:04 BUCK [email or web address]) Adult Cognitive Linguistic Evaluation Session Time Visit Start Time 12:30 Visit Stop Time 13:30 Total Visit Minutes 60 Visit Information Visit Number Initial Evaluation Plan of Care Dates 11/30/20 - 03/02/21 Insurance Information Medicare Referral Referring Provider Dr. Harleen Phelan Reason for Referral Parkinson's Disease Setting Assessment Location Outpatient Care Visit Type Note Type Initial evaluation Next Note Type Next Note Type Treatment Note Patient Information Medical History The pt is a 75-yr-old female recently diagnosed with Parkinson's disease. She is familiar to this LEG ASSEMBLER from previous therapy. The pt has a history of very frequent falls, often several in a week. On 11/24/20 she was seen at [facility] ED after a fall at home that resulted in scalp laceration and right C1 transverse process fracture. No hospitalization, surgery or neck brace was required. Pt was d/c'd home with instructions to take Tylenol for the pain. The pt denies changes in cognitive status from this and all other falls. Language(s) Spoken in the Home Persian Education Level 1 yr college Occupation Status Retired Hearing Hearing Level Normal Vision Vision Status Impaired Previous Therapy Previous Speech-Language Therapy Yes History of Therapy Pt seen from Apr 2020 - October 2020 targeting effective expressive, receptive and cognitive communication skills , swallow safety and saliva management. Also addressed were communication strategies between the pt and her , who is [place], RE changes related to PD including vocal loudness and communication around the pt's frequent falls . Slow progress was made. Subjective Patient Report The pt returns today under new MD orders to resume therapy. She denied dysphagia symptoms. Pt's complaints included excessive drooling at night; WFDs including saying yes when she means no and vice versa; confusing left and right; difficulty tracking dates and daily events; and forgetting details of conversations. Regarding dates and events, the pt reported that she has limited or no access to the calendar on which this information is kept; her manages the calendar and informs her when she needs to leave for an appt. Regarding forgetting details of conversations, the pt stated, I don't listen, which appeared to relate to conversations with and on TV (e.g., news) on topics about which she is uninterested. She stated that she often tunes [her ] out d/t disinterest. She felt that she remembered conversational details when they were meaningful to her. The pt also reported difficulty tracking plots of movies, which was disappointing to her, as she has always enjoyed movies. These challenges result in increased disagreement between the pt and her , decreased independence, confusion in conversations d/t wrong word usage, and decreased enjoyment of pastimes. Mental Status Alert,Responsive,Cooperative Assessment Oral Motor Examination Completed No Formal Assessment Standardized Test/Screener Type Frederick Cognitive Assessment (MoCA) Administration Complete Results Total Score: 17/30 (26 or greater = normal). Visuospatial/Executive Function (1/5): In trail making task, the pt appropriately alternated numbers and letters in correct order but pravin lines from each [place] to the letter A. Cube copying included small square within larger square and lines connecting the 4 corners of each. Clock drawing included appropriate contour; all numbers were included in correct sequence with skewed spacing of #s 4-6; hands of different lengths were present and originated from the center of the clock with minute hand pointing to 11 and hour hand pointing to just past 1. Confrontational Naming (/3) Memory: Pt recalled 5/5 items immediately x2 after a single presentation and again uncued after a delay. Attention (2/6): Pt repeated 5 numbers in forward order; scrambled numbers in reverse order; made 3 errors in responding to letter A in oral presentation of letters; and subtracted 7 correctly x2 of 5 opportunities (answers subtracting from 100: 93, 66, 37, 70, 63). Language (2/3): Pt accurately repeated 2 sentences and named 6 words in categorical naming task. Abstraction (1/2): Identified similarities between fruits and objects with wheels; responded to watch-ruler as Both tell time? Orientation (6): Pt was oriented to month, year and city. Named place as [facility]. Findings/Results Language Function Mild-moderately impaired Cognitive Function Moderately-severely impaired Findings Expressive Language: Pragmatics were WNL. Content and word choices were largely appropriate with slowed processing and slow speech production. Occasional WFDs were noted but resolved by the pt; vocabulary used was varied and descriptive. Limited trials of picture naming were accurate. Responses to abstract categorical naming were limited (6 in 60 sec). Syntax was largely WNL with occasionally unclear pronoun reference. Receptive Language: WFL for conversation. Partial accuracy in following directions during trail making task. Slowed processing and response time noted during attention task (i.e., tap table upon each presentation of A). Cognitive Communication: The pt exhibited strong memory skills in recall of 5-item list. Deficits noted in executive functions, attention , mental flexibility, and abstract thought. Visuospatial skill deficits also apparent and likely impacted by impaired vision. Additional assessment in all areas is recommended and will be administered in treatment to more fully assess pt's skills and guide POC. Cognitive Communication Deficits Self-awareness of Cognitive- Predictive awareness (able to Communication Deficits predict problem; impact of impairments) Concomitant Factors Comment Visual impairment requiring bifocal lenses with prisms Impact on Functioning Activity Limits/Particip.Rest. Mild: Household Tasks Mod: General Tasks and Demands Interpersonal Interactions Safety Risks Mod: Reacting to Emergency Sev: Being Left Alone at Home Traveling Alone in Community Comment Pt's physical and visual impairments further contribute to safety risks Prognosis Prognosis Fair Based on Family support,Comorbidities, Duration of symptoms/severity Comment Inconsistent progress in previous therapy Plan of Care Speech-Language Treatment Yes Frequency 1x/wk Duration 12 wks Patient/Caregiver Education Described results of evaluation,Patient expressed understanding of evaluation, Patient expressed agreement with goals and treatment plans ,Patient expressed understanding of safety precautions Short Term Goals 1. The pt will produce yes/no and left/right responses with 80% acc in structured tasks to improve accuracy and dependability of expressive language. 2. With collaboration from LEG ASSEMBLER , the pt will establish external memory tools in her functional environment to increase awareness and recall of date and daily tasks. 3. Given short stories presented orally or visually ( i.e., film), the pt will answer questions related to plot with 80% accuracy to improve general comprehension and resume hobby for improved QOL. 4. The pt will perform oral motor exercises to improve saliva management and reduce drooling. 5. Caregiver/spouse education and training to be provided as needed. Additional goals may be added upon further assessment of expressive and receptive language skills. Escalator Service Mechanic Goals 1. With use of environmental tools as needed, the pt will recall date and upcoming daily tasks/appts in 80% of opportunities, as measured by therapeutic trials, pt/spouse report, and clinician judgment . 2. Given short stories presented orally or visually ( i.e., film), the pt will retell main ideas of plot with 80% accuracy to improve general comprehension and resume hobby for improved QOL. 3. The pt will demonstrate 90% reliability in yes/no and right/left expression to improve expressive language and reduce confusion in functional conversations. Additional goals may be added upon further assessment of expressive and receptive language skills.
--- NOTE | 2020-12-14 15:40 | ST.OPTN ---
Visit Care Team Role Provider Type Helen Burroughs MD Family Provider Physician Primary Care Provider Address: [address] [place] [address], [id number] Attending Provider Referring Provider Address: Phone: Fax: PUBLISHING SPECIALIST Treatment Note PUBLISHING SPECIALIST Treatment Note Start: 11/30/20 16:59 Freq: Status: Active Protocol: Document 12/14/20 19:43 BUCK (Rec: 12/14/20 19:44 BUCK [id number]) Speech Pathology Treatment Note Session Time Visit Start Time 15:30 Visit Stop Time 14:20 Total Visit Minutes 50 Visit Information Visit Number 07/17 Plan of Care Dates 11/30/20 - 03/02/21 Insurance Information Medicare Setting Treatment Setting Outpatient Care Visit Type Note Type Treatment Note Next Note Type Next Note Type Treatment Note General Information General Information The pt is a 75-yr-old female recently diagnosed with Parkinson's disease. She is familiar to this PUBLISHING SPECIALIST from previous therapy. The pt has a history of very frequent falls, often several in a week. On 11/24/20 she was seen at [facility] ED after a fall at home that resulted in scalp laceration and right C1 transverse process fracture. No hospitalization, surgery or neck brace was required. Pt was d/c'd home with instructions to take Tylenol for the pain. The pt denies changes in cognitive status from this and all other falls. Subjective Others Present Student Observations/Patient Presentation The pt arrived on time. Reported falling again yesterday when making her bed. She denied injury, stating she landed on her bum. She informed that ROOPA Olivarez is working with her 2x/wk in her home; sessions are 45 minutes. The pt also has housekeeping assistance once every 2 wks and she takes laundry to the laundromat for cleaning, eliminating some household duties for herself. Chief Complaint(s) Speech,Language,Swallowing, Cognitive Patient Knowledge/Awareness of PUBLISHING SPECIALIST Role Good in Treatment Objective Short Term Goals 1. The pt will produce yes/no and left/right responses with 80% acc in structured tasks to improve accuracy and dependability of expressive language. 2. With collaboration from PUBLISHING SPECIALIST , the pt will establish external memory tools in her functional environment to increase awareness and recall of date and daily tasks. 3. Given short stories presented orally or visually ( i.e., film), the pt will answer questions related to plot with 80% accuracy to improve general comprehension and resume hobby for improved QOL. 4. The pt will perform oral motor exercises to improve saliva management and reduce drooling. 5. Caregiver/spouse education and training to be provided as needed. Additional goals may be added upon further assessment of expressive and receptive language skills. Muck Farmer Goals 1. With use of environmental tools as needed, the pt will recall date and upcoming daily tasks/appts in 80% of opportunities, as measured by therapeutic trials, pt/spouse report, and clinician judgment . 2. Given short stories presented orally or visually ( i.e., film), the pt will retell main ideas of plot with 80% accuracy to improve general comprehension and resume hobby for improved QOL. 3. The pt will demonstrate 90% reliability in yes/no and right/left expression to improve expressive language and reduce confusion in functional conversations. Additional goals may be added upon further assessment of expressive and receptive language skills. Treatment Activities The pt was oriented to year and season; not oriented to date, month or day of the week . Initiated development of calendar usage. The pt stated that her manages the calendar on his phone, which then syncs to the pt's phone. She has access to the calendar when she remembers to charge her cell phone. Today she had viewed the calendar and was aware of this appt, which was helpful because then I wasn't surprised when my told me we had to leave in 20 minutes. Established external memory tool (written note) to be placed in the pt's clothes closet, where she changes clothes in the morning and at night and where her phone rubbish collector is. With this visual reminder, the pt agreed to establish a routine of charging her phone each night and reviewing the calendar every night before bed and first thing each morning. Initiated training of left vs right orientation. The pt is left handed and stated that she thinks of the hand she writes with to assist her in discriminating left and right. Introduced visual prompt of the left hand making the shape of an L with fingers and thumb. Pt was enthusiastic about this prompt. Given verbal naming of items around the treatment room, the pt stated if they were located to the left or right of her (5/6 opportunities, 83% acc). The pt made one error, which appeared to result from difficulty in visually locating the correct object d/ t vision deficits. Will continue training. Assessment Patient Response to Treatment Fair Rehab Potential Good Impairments Identified Attention,Cognitive-Linguistic Skills,Dysarthria,Expressive Language,Oral Motor,Parkinson' s Disease,Reading Comprehension,Speech Intelligibility,Vocal Quality, Other Additional Impairments Identified Saliva management Progress Towards Goals Slow Progress Assessment of Overall Progress Improving Assessment of Improvement The pt was participatory in development of external memory tool and was responsive to left vs right strategies. She exhibited good orientation to left and right immediately following training. Will continue to train during direction-giving tasks. The pt was minimally oriented to time, demonstrating the need for improved calendar access and use. Reviewed with Patient Goals,Progress Being Made,Home Exercise Program Patient/Caregiver Understanding Good Plan Amount of Therapy Recommended 4 Months Frequency of Treatment Once a Week Length of Session 45 Minutes Treatment Emphasis Next Session F/U with calendar; Cont left/ right; Initiate yes/no Therapeutic Contents Client Education,Cognitive- Linguistic Training,Expressive Language Training,Home Exercise Program,Information Processing,Oral Motor Training Provided Patient/Caregiver Instruction Home Exercise Program,Plan of Care,Questions/Concerns Therapy Recommendations Continue with Current Program Suggested Referral Other Other Referrals Couples counseling for pt and her
--- NOTE | 2020-12-21 16:03 | ST.OPTN ---
Visit Care Team Role Provider Type Helen Burroughs MD Family Provider Physician Primary Care Provider Address: [address] [place] [address], [id number] Attending Provider Referring Provider Address: Phone: Fax: GEOMORPHOLOGIST Treatment Note GEOMORPHOLOGIST Treatment Note Start: 11/30/20 16:59 Freq: Status: Active Protocol: Document 12/21/20 15:46 BUCK (Rec: 12/21/20 16:03 BUCK [email or web address]) Speech Pathology Treatment Note Session Time Visit Start Time 09:30 Visit Stop Time 10:15 Total Visit Minutes 45 Visit Information Visit Number 08/17 Plan of Care Dates 11/30/20 - 03/02/21 Insurance Information Medicare Setting Treatment Setting Outpatient Care Visit Type Note Type Treatment Note Next Note Type Next Note Type Treatment Note General Information General Information The pt is a 75-yr-old female recently diagnosed with Parkinson's disease. She is familiar to this GEOMORPHOLOGIST from previous therapy. The pt has a history of very frequent falls, often several in a week. On 11/24/20 she was seen at [facility] ED after a fall at home that resulted in scalp laceration and right C1 transverse process fracture. No hospitalization, surgery or neck brace was required. Pt was d/c'd home with instructions to take Tylenol for the pain. The pt denies changes in cognitive status from this and all other falls. Subjective Others Present Student Observations/Patient Presentation The pt arrived on time. Reported no falls but several near misses since last session. Chief Complaint(s) Speech,Language,Swallowing, Cognitive Patient Knowledge/Awareness of GEOMORPHOLOGIST Role Good in Treatment Objective Short Term Goals 1. The pt will produce yes/no and left/right responses with 80% acc in structured tasks to improve accuracy and dependability of expressive language. 2. With collaboration from GEOMORPHOLOGIST , the pt will establish external memory tools in her functional environment to increase awareness and recall of date and daily tasks. 3. Given short stories presented orally or visually ( i.e., film), the pt will answer questions related to plot with 80% accuracy to improve general comprehension and resume hobby for improved QOL. 4. The pt will perform oral motor exercises to improve saliva management and reduce drooling. 5. Caregiver/spouse education and training to be provided as needed. Additional goals may be added upon further assessment of expressive and receptive language skills. Usp Goals 1. With use of environmental tools as needed, the pt will recall date and upcoming daily tasks/appts in 80% of opportunities, as measured by therapeutic trials, pt/spouse report, and clinician judgment . 2. Given short stories presented orally or visually ( i.e., film), the pt will retell main ideas of plot with 80% accuracy to improve general comprehension and resume hobby for improved QOL. 3. The pt will demonstrate 90% reliability in yes/no and right/left expression to improve expressive language and reduce confusion in functional conversations. Additional goals may be added upon further assessment of expressive and receptive language skills. Treatment Activities Continued training in expressive language including discrimination between left/ right and yes/no with use of L formed with the left hand ( index finger and thumb). Given various simple maps and using strategies, the pt answered Left/Right questions (Is X on the right or left? What is on the right/left?) with 80% acc. She identified items on left/right with 25% accuracy without v/v cues, often sliding her left hand ( in the shape of an L) to objects on the right side and declaring them on the left. Feedback and further training was provided to eliminate crossing over the center point of reference. Accuracy increased to 92% with visual aid (ruler sides of page) and mod verbal prompts that tapered over span of task . The pt gave directions to get to various markers on the maps with 38% acc of left/right. The pt commented, That's really confusing. Skilled feedback was provided . Training to continue with added support to reduce confusion. Initiated yes/no discrimination and accuracy using same maps. The pt answered questions with 88% accuracy, self-correcting the one error that she made. Assessment Patient Response to Treatment Fair Rehab Potential Good Impairments Identified Attention,Cognitive-Linguistic Skills,Dysarthria,Expressive Language,Oral Motor,Parkinson' s Disease,Reading Comprehension,Speech Intelligibility,Vocal Quality, Other Additional Impairments Identified Saliva management Progress Towards Goals Slow Progress Assessment of Overall Progress Improving Assessment of Improvement The pt demonstrated inconsistent discrimination and identification of objects at left and right side of markers. She benefited from tactile strategies and training using the visual shape of an L at her left hand , as well as arms stretched out and not allowed to cross over the body from one side to the other (in order to train a central point of reference). Accuracy of left/right improved with these strategies but remained inconsistent. The pt exhibited significant difficulty in giving oral directions around a simple map , which may reflect impairments with mental flexibilty, memory, and visuospatial skills. Reviewed with Patient Goals,Progress Being Made,Home Exercise Program Patient/Caregiver Understanding Good Plan Amount of Therapy Recommended 4 Months Frequency of Treatment Once a Week Length of Session 45 Minutes Treatment Emphasis Next Session F/U with calendar; Cont left/ right; Initiate yes/no Therapeutic Contents Client Education,Cognitive- Linguistic Training,Expressive Language Training,Home Exercise Program,Information Processing,Oral Motor Training Provided Patient/Caregiver Instruction Home Exercise Program,Plan of Care,Questions/Concerns Therapy Recommendations Continue with Current Program Suggested Referral Other Other Referrals Couples counseling for pt and her
--- NOTE | 2020-12-27 17:44 | ST.OPTN ---
Visit Care Team Role Provider Type Helen Burroughs MD Family Provider Physician Primary Care Provider Address: [address] [place] [address], [id number] Attending Provider Referring Provider Address: Phone: Fax: GREENSKEEPER LABORER Treatment Note GREENSKEEPER LABORER Treatment Note Start: 11/30/20 16:59 Freq: Status: Active Protocol: Document 12/27/20 10:32 BUCK (Rec: 12/27/20 10:34 BUCK [email or web address]) Speech Pathology Treatment Note Session Time Visit Start Time 09:30 Visit Stop Time 10:15 Total Visit Minutes 45 Visit Information Visit Number 09/14 Plan of Care Dates 11/30/20 - 03/02/21 Insurance Information Medicare Setting Treatment Setting Outpatient Care Visit Type Note Type Treatment Note Next Note Type Next Note Type Treatment Note General Information General Information The pt is a 75-yr-old female recently diagnosed with Parkinson's disease. She is familiar to this GREENSKEEPER LABORER from previous therapy. The pt has a history of very frequent falls, often several in a week. On 11/24/20 she was seen at [facility] ED after a fall at home that resulted in scalp laceration and right C1 transverse process fracture. No hospitalization, surgery or neck brace was required. Pt was d/c'd home with instructions to take Tylenol for the pain. The pt denies changes in cognitive status from this and all other falls. Subjective Others Present Student Observations/Patient Presentation The pt arrived on time. Her son and his kids visited over the weekend. The pt said that she had good talks with them and her about being patient with Aydee and about her cognitive status. She reported her being more patient and her son identifying her confusion over left and right as baseline behavior for years. Pt reported often does not hear her when she says yes, which contributes to confusion in conversations. Chief Complaint(s) Speech,Language,Swallowing, Cognitive Patient Knowledge/Awareness of GREENSKEEPER LABORER Role Good in Treatment Objective Short Term Goals 1. The pt will produce yes/no and left/right responses with 80% acc in structured tasks to improve accuracy and dependability of expressive language. 2. With collaboration from GREENSKEEPER LABORER , the pt will establish external memory tools in her functional environment to increase awareness and recall of date and daily tasks. 3. Given short stories presented orally or visually ( i.e., film), the pt will answer questions related to plot with 80% accuracy to improve general comprehension and resume hobby for improved QOL. 4. The pt will perform oral motor exercises to improve saliva management and reduce drooling. 5. Caregiver/spouse education and training to be provided as needed. Additional goals may be added upon further assessment of expressive and receptive language skills. Residential Goals 1. With use of environmental tools as needed, the pt will recall date and upcoming daily tasks/appts in 80% of opportunities, as measured by therapeutic trials, pt/spouse report, and clinician judgment . 2. Given short stories presented orally or visually ( i.e., film), the pt will retell main ideas of plot with 80% accuracy to improve general comprehension and resume hobby for improved QOL. 3. The pt will demonstrate 90% reliability in yes/no and right/left expression to improve expressive language and reduce confusion in functional conversations. Additional goals may be added upon further assessment of expressive and receptive language skills. Treatment Activities Education provided RE phonemic characteristics in relation to high frequency hearing loss that may impact the pt's 's ability to hear her yes/no responses. Initiated training in yes/no response accuracy and compensatory strategies. Strategies to include pt's use of head gesture in addition to speech to improve 's understanding of her responses ; replacing yes/no questions with open-ended questions to both improve communication and also assist the pt in rehearsal of safety precautions (e.g., instead of asking, Did you use your hands when you sat down? ask How did you sit down?); and both pt and spouse allowing extra time for the pt to respond to questions to increase response accuracy. Strategies were provided in writing for CG training and home practice. Given general Yes/No questions , the pt answered both orally and with head gesture with 100 % accuracy. GREENSKEEPER LABORER encouraged exaggerated head movements as well as loud voice. Pt was responsive to this but needed frequent prompts. Assessment Patient Response to Treatment Fair Rehab Potential Good Impairments Identified Attention,Cognitive-Linguistic Skills,Dysarthria,Expressive Language,Oral Motor,Parkinson' s Disease,Reading Comprehension,Speech Intelligibility,Vocal Quality, Other Additional Impairments Identified Saliva management Progress Towards Goals Slow Progress Assessment of Overall Progress Improving Assessment of Improvement The pt was collaborative in developing strategies to improve communication with yes /no questions. In structured task, she answered accurately with both speech and gesture, demonstrating understanding of compensatory strategy. Reviewed with Patient Goals,Progress Being Made,Home Exercise Program Patient/Caregiver Understanding Good Plan Amount of Therapy Recommended 4 Months Frequency of Treatment Once a Week Length of Session 45 Minutes Treatment Emphasis Next Session F/U with calendar; Cont left/ right; Initiate yes/no Therapeutic Contents Client Education,Cognitive- Linguistic Training,Expressive Language Training,Home Exercise Program,Information Processing,Oral Motor Training Provided Patient/Caregiver Instruction Home Exercise Program,Plan of Care,Questions/Concerns Therapy Recommendations Continue with Current Program Suggested Referral Other Other Referrals Couples counseling for pt and her
--- NOTE | 2021-01-04 15:49 | ST.OPTN ---
Visit Care Team Role Provider Type Helen Burroughs MD Family Provider Physician Primary Care Provider Address: [address] [place] [address], [id number] Attending Provider Referring Provider Address: Phone: Fax: TRUCK DISPATCHER Treatment Note TRUCK DISPATCHER Clinical Instructor Line Start: 01/03/21 16:53 Freq: Status: Active Protocol: Document 01/04/21 15:35 BUCK (Rec: 01/04/21 15:35 [email or web address]) Clinical Instructor Signature Clinical Instructor Clinical Instructor Yes TRUCK DISPATCHER Treatment Note Start: 11/30/20 16:59 Freq: Status: Active Protocol: Document 01/03/21 12:20 EB (Rec: 01/03/21 12:28 EB [email or web address]) Speech Pathology Treatment Note Session Time Visit Start Time 09:30 Visit Stop Time 10:15 Total Visit Minutes 45 Visit Information Visit Number 10/15 Plan of Care Dates 11/30/20 - 03/02/21 Insurance Information Medicare Setting Treatment Setting Outpatient Care Visit Type Note Type Treatment Note Next Note Type Next Note Type Treatment Note General Information General Information The pt is a 75-yr-old female recently diagnosed with Parkinson's disease. She is familiar to this TRUCK DISPATCHER from previous therapy. The pt has a history of very frequent falls, often several in a week. On 11/24/20 she was seen at [facility] ED after a fall at home that resulted in scalp laceration and right C1 transverse process fracture. No hospitalization, surgery or neck brace was required. Pt was d/c'd home with instructions to take Tylenol for the pain. The pt denies changes in cognitive status from this and all other falls. Subjective Others Present Student Observations/Patient Presentation The pt arrived on time. The pt reported improvement in responding to yes/no questions with her and that using yes/no gestures (nodding and shaking head) has been helpful. Session conducted and note written by student TRUCK DISPATCHER Marilyn Curry. Chief Complaint(s) Speech,Language,Swallowing, Cognitive Patient Knowledge/Awareness of TRUCK DISPATCHER Role Good in Treatment Objective Short Term Goals 1. The pt will produce yes/no and left/right responses with 80% acc in structured tasks to improve accuracy and dependability of expressive language. 2. With collaboration from TRUCK DISPATCHER , the pt will establish external memory tools in her functional environment to increase awareness and recall of date and daily tasks. 3. Given short stories presented orally or visually ( i.e., film), the pt will answer questions related to plot with 80% accuracy to improve general comprehension and resume hobby for improved QOL. 4. The pt will perform oral motor exercises to improve saliva management and reduce drooling. 5. Caregiver/spouse education and training to be provided as needed. Additional goals may be added upon further assessment of expressive and receptive language skills. Fpc Goals 1. With use of environmental tools as needed, the pt will recall date and upcoming daily tasks/appts in 80% of opportunities, as measured by therapeutic trials, pt/spouse report, and clinician judgment . 2. Given short stories presented orally or visually ( i.e., film), the pt will retell main ideas of plot with 80% accuracy to improve general comprehension and resume hobby for improved QOL. 3. The pt will demonstrate 90% reliability in yes/no and right/left expression to improve expressive language and reduce confusion in functional conversations. Additional goals may be added upon further assessment of expressive and receptive language skills. Treatment Activities Pt independently recalled strategies to aid left/right discrimination, use of L formed with the left hand ( index finger and thumb) and not crossing over the center point of reference. The pt gave directions to get to various markers on maps with 40% acc of left/right. The pt commented that one map is more confusing? and appeared to fatigue with the task. Skilled feedback was provided and training will continue with added support to continue to reduce confusion. Given general Yes/No questions , the pt answered both orally and with head gesture with 85% accuracy. Pt self-corrected 3 out of 4 errors. Pt required occasional prompts to consider the question then respond with loud voice and big gestures. Pt was encouraged to answer questions in full sentences to aid both her and her communication partner in ensuring she correctly heard the question. Provided education regarding communication related to safely sitting and standing to reinforce memory of safety strategies. When asked about current saliva management, the pt responded that she may be swallowing too much as she feels like her mouth is too dry. TRUCK DISPATCHER encouraged pt to increase water-intake and provided education about dry- mouth potentially being a side effect to medication. Assessment Patient Response to Treatment Fair Rehab Potential Good Impairments Identified Attention,Cognitive-Linguistic Skills,Dysarthria,Expressive Language,Oral Motor,Parkinson' s Disease,Reading Comprehension,Speech Intelligibility,Vocal Quality, Other Additional Impairments Identified Saliva management Progress Towards Goals Slow Progress Assessment of Overall Progress Improving Assessment of Improvement The pt appeared enthusiastic about using strategies to improve communication with left/right discrimination and yes/no questions. In structured tasks, she answered yes/no questions accurately with both speech and gesture, demonstrating understanding of compensatory strategy. In unstructured conversation, she was noted as appropriately using nodding/shaking of head when saying yes/no. Reviewed with Patient Goals,Progress Being Made,Home Exercise Program Patient/Caregiver Understanding Good Plan Amount of Therapy Recommended 4 Months Frequency of Treatment Once a Week Length of Session 45 Minutes Treatment Emphasis Next Session F/U with calendar; Cont left/ right; Initiate yes/no Therapeutic Contents Client Education,Cognitive- Linguistic Training,Expressive Language Training,Home Exercise Program,Information Processing,Oral Motor Training Provided Patient/Caregiver Instruction Home Exercise Program,Plan of Care,Questions/Concerns Therapy Recommendations Continue with Current Program Suggested Referral Other Other Referrals Couples counseling for pt and her
--- NOTE | 2021-01-17 17:52 | ST.OPTN ---
Visit Care Team Role Provider Type Helen Burroughs MD Family Provider Physician Primary Care Provider Address: [address] [place] [address], [id number] Attending Provider Referring Provider Address: Phone: Fax: RN ANTE PARTUM Treatment Note RN ANTE PARTUM Clinical Instructor Line Start: 01/03/21 16:53 Freq: Status: Active Protocol: Document 01/17/21 11:51 BUCK (Rec: 01/17/21 11:51 [id number] [email or web address]) Clinical Instructor Signature Clinical Instructor Clinical Instructor Yes RN ANTE PARTUM Treatment Note Start: 11/30/20 16:59 Freq: Status: Active Protocol: Document 01/17/21 10:36 EB (Rec: 01/17/21 10:43 EB [email or web address]) Speech Pathology Treatment Note Session Time Visit Start Time 09:30 Visit Stop Time 10:15 Total Visit Minutes 45 Visit Information Visit Number 11/14 Plan of Care Dates 11/30/20 - 03/02/21 Insurance Information Medicare Setting Treatment Setting Outpatient Care Visit Type Note Type Treatment Note Next Note Type Next Note Type Treatment Note General Information General Information The pt is a 75-yr-old female recently diagnosed with Parkinson's disease. She is familiar to this RN ANTE PARTUM from previous therapy. The pt has a history of very frequent falls, often several in a week. On 11/24/20 she was seen at [facility] ED after a fall at home that resulted in scalp laceration and right C1 transverse process fracture. No hospitalization, surgery or neck brace was required. Pt was d/c'd home with instructions to take Tylenol for the pain. The pt denies changes in cognitive status from this and all other falls. Subjective Others Present Student Observations/Patient Presentation The pt arrived on time. Pt reported that she has had several falls since last session, at least three of those falls occurring while making the bed. Pt has a neurologist appointment next month and stated that she plans on asking about her Parkinson's progression as pt says she feels she is progressing rapidly. Chief Complaint(s) Speech,Language,Swallowing, Cognitive Patient Knowledge/Awareness of RN ANTE PARTUM Role Good in Treatment Objective Short Term Goals 1. The pt will produce yes/no and left/right responses with 80% acc in structured tasks to improve accuracy and dependability of expressive language. 2. With collaboration from RN ANTE PARTUM , the pt will establish external memory tools in her functional environment to increase awareness and recall of date and daily tasks. 3. Given short stories presented orally or visually ( i.e., film), the pt will answer questions related to plot with 80% accuracy to improve general comprehension and resume hobby for improved QOL. 4. The pt will perform oral motor exercises to improve saliva management and reduce drooling. 5. Caregiver/spouse education and training to be provided as needed. Additional goals may be added upon further assessment of expressive and receptive language skills. Meat Puller Goals 1. With use of environmental tools as needed, the pt will recall date and upcoming daily tasks/appts in 80% of opportunities, as measured by therapeutic trials, pt/spouse report, and clinician judgment . 2. Given short stories presented orally or visually ( i.e., film), the pt will retell main ideas of plot with 80% accuracy to improve general comprehension and resume hobby for improved QOL. 3. The pt will demonstrate 90% reliability in yes/no and right/left expression to improve expressive language and reduce confusion in functional conversations. Additional goals may be added upon further assessment of expressive and receptive language skills. Treatment Activities Consulted client RE current status of Parkinson's symptoms. Education provided RE saliva management while sleeping by raising the head of the bed and sleeping on pt' s side instead of her back. Pt demonstrated understanding of these strategies and was given paperwork for her spouse so he can also be aware and aid in follow-through of strategies. During conversation, pt independently utilized gestures to aid yes/no responses with 88% accuracy. Provided skilled feedback RE bigger movements to make pt's gestures more clear to her communication partner. Pt was agreeable to feedback and stated that she will continue to be mindful of her use of gestures. Pt stated that she continues to have difficulty with discriminating left/right particularly while walking as well as remembering safety strategies. It was noted that during the session, the pt correctly identified what side of the bed she sleeps on ( while facing it and while laying on it) but incorrectly stated that the left side of her clavicle is hurt when it is in fact her right side that is injured. Collaborated with pt RE possible external memory strategies for left/ right as well as her safety strategies to prevent falling. Pt expressed verbal understanding and identified the strategy of clenching her right fist and creating a L with her left hand to further contrast the two sides and aid her discrimination of the two . Assessment Patient Response to Treatment Fair Rehab Potential Good Impairments Identified Attention,Cognitive-Linguistic Skills,Dysarthria,Expressive Language,Oral Motor,Parkinson' s Disease,Reading Comprehension,Speech Intelligibility,Vocal Quality, Other Additional Impairments Identified Saliva management Progress Towards Goals Slow Progress Assessment of Overall Progress Improving Assessment of Improvement The pt stated that utilizing yes/no gestures has been helpful in reducing communication breakdowns at home and was noted as utilizing gestures throughout session, even with open ended phrases. For example, the pt regularly shook her head when saying I don't and nodded when saying I do, demonstrating good carryover of skills. Pt showed good awareness in nature of her disease and was open to receiving information regarding community resources for care-giving and future planning for disease progression. Will continue to target left/right discrimination as well as external memory tools to reinforce safety strategies. Reviewed with Patient Goals,Progress Being Made,Home Exercise Program Patient/Caregiver Understanding Good Plan Amount of Therapy Recommended 4 Months Frequency of Treatment Once a Week Length of Session 45 Minutes Treatment Emphasis Next Session F/U with calendar; Cont left/ right; Initiate yes/no Therapeutic Contents Client Education,Cognitive- Linguistic Training,Expressive Language Training,Home Exercise Program,Information Processing,Oral Motor Training Provided Patient/Caregiver Instruction Home Exercise Program,Plan of Care,Questions/Concerns Therapy Recommendations Continue with Current Program Suggested Referral Other Other Referrals Couples counseling for pt and her
--- NOTE | 2021-01-31 17:55 | ST.OPTN ---
Visit Care Team Role Provider Type Helen Burroughs MD Family Provider Physician Primary Care Provider Address: [address] [place] [address], [id number] Attending Provider Referring Provider Address: Phone: Fax: JBOSS DEVELOPER Treatment Note JBOSS DEVELOPER Clinical Instructor Line Start: 01/03/21 16:53 Freq: Status: Active Protocol: Document 01/17/21 11:51 BUCK (Rec: 01/17/21 11:51 [email or web address] [email or web address]) Clinical Instructor Signature Clinical Instructor Clinical Instructor Yes JBOSS DEVELOPER Treatment Note Start: 11/30/20 16:59 Freq: Status: Active Protocol: Document 01/31/21 17:02 BUCK (Rec: 01/31/21 17:25 BUCK [email or web address]) Speech Pathology Treatment Note Session Time Visit Start Time 14:30 Visit Stop Time 15:40 Total Visit Minutes 70 Visit Information Visit Number 12/15 Plan of Care Dates 11/30/20 - 03/02/21 Insurance Information Medicare Setting Treatment Setting Outpatient Care Visit Type Note Type Treatment Note Next Note Type Next Note Type Treatment Note General Information General Information The pt is a 75-yr-old female recently diagnosed with Parkinson's disease. She is familiar to this JBOSS DEVELOPER from previous therapy. The pt has a history of very frequent falls, often several in a week. On 11/24/20 she was seen at [facility] ED after a fall at home that resulted in scalp laceration and right C1 transverse process fracture. No hospitalization, surgery or neck brace was required. Pt was d/c'd home with instructions to take Tylenol for the pain. The pt denies changes in cognitive status from this and all other falls. Subjective Others Present Student Observations/Patient Presentation The pt arrived on time. She was seen yesterday by her Neurologist who diagnosed Progressive Supranuclear Palsy vs Parkinson's disease. Pt informed she and spouse are working with Neurologist to find [facility] housing for the pt, as well as a wheelchair to reduce risk of falling. During conversations related to this diagnosis, the pt stated she felt her antidepressant is not effective and informed JBOSS DEVELOPER of suicidal ideation and planning in the form of swallowing poison or cutting her wrists. Chief Complaint(s) Speech,Language,Swallowing, Cognitive Patient Knowledge/Awareness of JBOSS DEVELOPER Role Good in Treatment Objective Short Term Goals 1. The pt will produce yes/no and left/right responses with 80% acc in structured tasks to improve accuracy and dependability of expressive language. 2. With collaboration from JBOSS DEVELOPER , the pt will establish external memory tools in her functional environment to increase awareness and recall of date and daily tasks. 3. Given short stories presented orally or visually ( i.e., film), the pt will answer questions related to plot with 80% accuracy to improve general comprehension and resume hobby for improved QOL. 4. The pt will perform oral motor exercises to improve saliva management and reduce drooling. 5. Caregiver/spouse education and training to be provided as needed. Additional goals may be added upon further assessment of expressive and receptive language skills. Machine Clothing Replacer Goals 1. With use of environmental tools as needed, the pt will recall date and upcoming daily tasks/appts in 80% of opportunities, as measured by therapeutic trials, pt/spouse report, and clinician judgment . 2. Given short stories presented orally or visually ( i.e., film), the pt will retell main ideas of plot with 80% accuracy to improve general comprehension and resume hobby for improved QOL. 3. The pt will demonstrate 90% reliability in yes/no and right/left expression to improve expressive language and reduce confusion in functional conversations. Additional goals may be added upon further assessment of expressive and receptive language skills. Treatment Activities Today's session focused on counseling and pt care coordination with hospital PREPARING BOX TENDER and pt's spouse related to her statements of suicidal ideation. In conversation with this JBOSS DEVELOPER, the pt made statements such as, I think it's time to end this. I don't want to be a burden to my . There is no medication that can stop this [PSP condition]). The pt made several references to poisons taken in WWII movies that made dying appear simple and painless, as well as references to cutting her wrists. This JBOSS DEVELOPER discussed realities of pain with swallowing poison and wrist cutting, as well as potential unintended impacts on the pt's family. JBOSS DEVELOPER recommended discussing antidepressant medication with PCP. The pt gave verbal permission for this JBOSS DEVELOPER to discuss the conversation with Dr. Helen Burroughs, pt's PCP, and also stated her intent to call Dr. Burroughs as soon as she got home. Pt recognized the urgency of the situation and promised JBOSS DEVELOPER that she would not do harm to herself. She stated, I told you about this because I thought you might have some suggestions and solutions, indicated a request for help vs imminent suicidal intentions. This JBOSS DEVELOPER provided the pt with the Suicide Hotline phone number and asked pt to promise she would call the number before harming herself in any way. The pt promised this. While the pt waited in the treatment room, JBOSS DEVELOPER discussed the situation with the pt's PT , Maribel Fernández, and with Terrell Cifuentes, Director of Rehab. Terrell contacted the hospital Emergency Dept and found that KINGA Carrington was available to talk with the pt. The pt was agreeable to this and to her joining the conversation. This JBOSS DEVELOPER met the pt's , Wilber, in the parking lot and explained the situation. He agreed to join the conversation and was brought to a private treatment room where the pt and PREPARING BOX TENDER were talking. This JBOSS DEVELOPER was informed later that the PT (Maribel) called Dr. Burroughs's office and informed them of the situation . Informed by Director of Rehab that PREPARING BOX TENDER made referrals to PCP and Psychologist/ Psychiatrist for further evaluation and treatment. Assessment Patient Response to Treatment Fair Rehab Potential Fair Impairments Identified Attention,Cognitive-Linguistic Skills,Dysarthria,Expressive Language,Oral Motor,Parkinson' s Disease,Reading Comprehension,Speech Intelligibility,Vocal Quality, Other Additional Impairments Identified Saliva management; Progressive Supranuclear Palsy Progress Towards Goals Slow Progress Assessment of Improvement The pt verbalized increased depression with suicidal ideation and potential planning associated with new diagnosis of Progressive Supranuclear Palsy. She indicated desire for help in identifying other solutions and was agreeable to talking, and did talk, with PREPARING BOX TENDER and spouse about her feelings. She promised this JBOSS DEVELOPER that she would not harm herself, and that if she strongly felt the urge to do so that she would first call the Suicide Hotline . Reviewed with Patient Goals,Progress Being Made,Home Exercise Program Patient/Caregiver Understanding Good Plan Amount of Therapy Recommended 4 Months Frequency of Treatment Once a Week Length of Session 45 Minutes Treatment Emphasis Next Session F/U on today's conversation. Discuss POC in light of new diagnosis. Therapeutic Contents Client Education,Cognitive- Linguistic Training,Expressive Language Training,Home Exercise Program,Information Processing,Oral Motor Training Provided Patient/Caregiver Instruction Home Exercise Program,Plan of Care,Questions/Concerns Therapy Recommendations Continue with Current Program Suggested Referral Primary Care Physician,Other Other Referrals Psychiatric care
--- NOTE | 2021-02-01 14:06 | CM.SWNOTE ---
GLASS GRINDER Assessment Note GLASS GRINDER is referred by drum printer Services Nichole Cifuentes to meet with patient in therapies office after disclosure of SI in PT and DISPENSER OPERATOR appt on 01/31/21. GLASS GRINDER receives consult from PCP Dr. Helen Burroughs's office on this date. Patient is 75 y/o female who is present at rehabilitation services for DISPENSER OPERATOR and PT appt. GLASS GRINDER enters room to meet with patient. Patient endorses SI and hx of depression. Patient endorses ending life as a solution to recent news of PSP dx. Patient endorses thinking about SI occasionally as thoughts come and go, patient denies having plan for SI. Patient endorses feeling like a burden to and patient is losing ADL independence. With patient's permission, patient's Wilber enters with room. GLASS GRINDER provides with what patient disclosed to GLASS GRINDER. endorses that he understands the last few days in patient getting the recent PSP dx that he can see her perspective. endorses that patient will have neurologist evaluation to assess if PT and OT is needed and if patient meets criteria for a wheelchair. It is reported that patient is on antidepressants but patient is interested in looking into dosage increase and would like to discuss this with PCP Dr. Burroughs. endorses that he is looking into seeking a caregiver for patient in home. endorses he does the cooking, cleaning, and driving patient and patient is never alone at home. GLASS GRINDER provides patient and with MH resources and crisis response contact information as well as a senior resource guide. It is the opinion of this GLASS GRINDER that patient is safe to leave with . GLASS GRINDER receives consent for GLASS GRINDER to contact PCP to schedule f/u appt and share GLASS GRINDER's encounter with PCP. GLASS GRINDER schedules PCP f/u appt for patient with Dr. Burroughs for 02/01/21 at 2:20 pm. GLASS GRINDER calls and leaves VM with this information regarding scheduled PCP appt. Plan: patient to f/u with PCP and to f/u with higher level of care. KINGA Wiggins
--- NOTE | 2021-02-08 16:11 | ST.OPTN ---
Visit Care Team Role Provider Type Helen Burroughs MD Family Provider Physician Primary Care Provider Address: [address] [place] [address], [id number] Attending Provider Referring Provider Address: Phone: Fax: MOLD UNLOADER Treatment Note MOLD UNLOADER Clinical Instructor Line Start: 01/03/21 16:53 Freq: Status: Active Protocol: Document 01/17/21 11:51 BUCK (Rec: 01/17/21 11:51 [email or web address] [email or web address]) Clinical Instructor Signature Clinical Instructor Clinical Instructor Yes MOLD UNLOADER Treatment Note Start: 11/30/20 16:59 Freq: Status: Active Protocol: Document 02/08/21 15:48 BUCK (Rec: 02/08/21 16:11 BUCK [email or web address]) Speech Pathology Treatment Note Session Time Visit Start Time 10:30 Visit Stop Time 11:15 Total Visit Minutes 45 Visit Information Visit Number 01/14 Plan of Care Dates 11/30/20 - 03/02/21 Insurance Information Medicare Setting Treatment Setting Outpatient Care Visit Type Note Type Treatment Note Next Note Type Next Note Type Treatment Note General Information General Information The pt is a 75-yr-old female recently diagnosed with Parkinson's disease. She is familiar to this MOLD UNLOADER from previous therapy. The pt has a history of very frequent falls, often several in a week. On 11/24/20 she was seen at [facility] ED after a fall at home that resulted in scalp laceration and right C1 transverse process fracture. No hospitalization, surgery or neck brace was required. Pt was d/c'd home with instructions to take Tylenol for the pain. The pt denies changes in cognitive status from this and all other falls. Subjective Others Present Student Observations/Patient Presentation The pt arrived on time. She reported increased stiffness and exhibited difficulty standing from chair in lobby. She stated her conversation with the Wash Box Operator after our previous session was helpful, although she did not receive information to receive mental health counseling, which she expressed desire for . She also stated that she and her spoke about the pt's comments about suicidal ideation at last session, and stated this was a good conversation for them. Her expressed the desire that the pt not take her life. The pt stated to MOLD UNLOADER, I'm doing okay. She did request assistance from MOLD UNLOADER for community resources for in- home assistance, assisted living options, and mental health counseling. Chief Complaint(s) Speech,Language,Swallowing, Cognitive Patient Knowledge/Awareness of MOLD UNLOADER Role Good in Treatment Objective Short Term Goals 1. The pt will produce yes/no and left/right responses with 80% acc in structured tasks to improve accuracy and dependability of expressive language. 2. With collaboration from MOLD UNLOADER , the pt will establish external memory tools in her functional environment to increase awareness and recall of date and daily tasks. 3. Given short stories presented orally or visually ( i.e., film), the pt will answer questions related to plot with 80% accuracy to improve general comprehension and resume hobby for improved QOL. 4. The pt will perform oral motor exercises to improve saliva management and reduce drooling. 5. Caregiver/spouse education and training to be provided as needed. Additional goals may be added upon further assessment of expressive and receptive language skills. Bookkeeping Manager Goals 1. With use of environmental tools as needed, the pt will recall date and upcoming daily tasks/appts in 80% of opportunities, as measured by therapeutic trials, pt/spouse report, and clinician judgment . 2. Given short stories presented orally or visually ( i.e., film), the pt will retell main ideas of plot with 80% accuracy to improve general comprehension and resume hobby for improved QOL. 3. The pt will demonstrate 90% reliability in yes/no and right/left expression to improve expressive language and reduce confusion in functional conversations. Additional goals may be added upon further assessment of expressive and receptive language skills. Treatment Activities Counseling and care management /coordination was provided to pt. MOLD UNLOADER provided the pt with a Senior Resources booklet for [facility], including resources requested by pt. Also provided a list of local mental health counselors, which was obtained from the [employer] website. One counselor whose credentials appeared to be a good fit for the pt was identified, including contact information. This MOLD UNLOADER also agreed to reach out to the [facility] for potential referral/assistance. The pt reported continued frequent falling at home, sometimes unable to get herself up or get help from others. Discussed options for communicating to her that she has fallen, and agreed that an Apple Watch ( smart watch) may be a good option both because it can be voice activated to call her , and because it has an automatic fall notification built in that would alert her that she has fallen. Pt agreed to discuss with her ; will f/u at next session. Assessment Patient Response to Treatment Fair Rehab Potential Fair Impairments Identified Attention,Cognitive-Linguistic Skills,Dysarthria,Expressive Language,Oral Motor,Parkinson' s Disease,Reading Comprehension,Speech Intelligibility,Vocal Quality, Other Additional Impairments Identified Saliva management; Progressive Supranuclear Palsy Progress Towards Goals Slow Progress Assessment of Improvement The pt was openly communicative about her need and desire for mental health counseling and receptive to coordinated care efforts. She was also collaborative in problem solving ways to communicate for safety when she has fallen and agreeable to use of a smart watch. Reviewed with Patient Goals,Progress Being Made,Home Exercise Program Patient/Caregiver Understanding Good Plan Amount of Therapy Recommended 4 Months Frequency of Treatment Once a Week Length of Session 45 Minutes Treatment Emphasis Next Session F/U on today's conversation. Discuss POC in light of new diagnosis. Therapeutic Contents Client Education,Cognitive- Linguistic Training,Expressive Language Training,Home Exercise Program,Information Processing,Oral Motor Training Provided Patient/Caregiver Instruction Home Exercise Program,Plan of Care,Questions/Concerns Therapy Recommendations Continue with Current Program Suggested Referral Primary Care Physician,Other Other Referrals Psychiatric care
--- NOTE | 2021-02-15 17:53 | ST.OPIE ---
Visit Care Team Role Provider Type Helen Burroughs MD Family Provider Physician Primary Care Provider Specialty: Internal Medicine Address: [address] [place] [address], [id number] Email: [email or web address] Attending Provider Referring Provider Specialty: Address: Phone: Fax: Email: Speech-Language Pathology Initial Evaluation AUDITOR Clinical Swallow Evaluation Start: 03/01/21 17:41 Freq: Status: Active Protocol: Document 02/15/21 17:42 BUCK (Rec: 03/01/21 17:53 BUCK [email or web address]) Clinical Swallow Evaluation Session Time Visit Start Time 10:30 Visit Stop Time 11:15 Total Visit Minutes 45 Setting Assessment Location Outpatient Care Visit Type Note Type Initial evaluation Next Note Type Next Note Type Treatment Note Patient Information History Pt is a 75-yr-old female receiving outpatient therapy for expressive, receptive and cognitive communication skills . 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 Clinical swallow evaluation was administered today to determine baseline swallow function and to address pt's expressed c/o frequent coughing with oral intake. Subjective Observations The pt arrived on time. Reported frequent coughing and throat clearing while eating and drinking. She stated her says this occurs more frequently than the pt notices . Pt also c/o consistent drooling while sleeping. Denies drooling while awake. Reported by Patient Other Symptoms Coughing Objective Assessment Mental Status Alert,Responsive,Cooperative Oral Integrity WFL Dentition Within normal limits Lip Function Within normal limits Observation of Lips at Rest Symmetrical Pucker Within normal limits Lip Retraction Within normal limits Alternating Pucker/Lip Retraction Within normal limits Tongue Function Mild impairment Observations of Tongue at Rest Within normal limits Tongue Protrusion Reduced strength Tongue Lateralization Reduced strength Jaw Function Within normal limits Observations of Jaw at Rest Within normal limits Jaw Opening Within normal limits Jaw Closing Within normal limits Jaw Lateralization Within normal limits Hard/Soft Palate Function Within normal limits Observations of Hard/Soft Palate Within normal limits Nasality Within normal limits Phonation Within normal limits Respiratory Sufficiency Within normal limits Food and Liquid Trials Position During Assessment Upright (90 degrees) Liquids Trialed Thin Solids Trialed Puree,Dysphagia Mechanical, Mechanical Soft Administration Type Cup single sip,Self-feeding Oral Impairment Within functional limits Oral Phase Comments Mildly slowed oral prep phase observed. Swallow trigger appears to be timely. No abnormal oral residue observed . Pharyngeal Impairment Mildly impaired Pharyngeal Phase Comments Frequent delayed throat clearing was observed with most trials of both liquid and solids. Mild immediate cough noted after thin liquid swallow x1. Fatigue/Endurance Endurance WNL Findings Swallowing Function Oropharyngeal phase dysphagia Severity of Swallow Impairment Mildly impaired Contributing Factors to Swallow Reduced oral strength/ Impairment coordination/sensation Prognosis Good Based on Cognitive status,Family support Comment Prognosis is good at this time ; however, PSP is known to progress quickly, which worsens prognosis. Impact on Safety and Functioning Risk for aspiration Recommendations Instrumental Assessment No Swallowing Treatment Yes Frequency To be integrated into current weekly Speech Therapy Recommended Solids Regular Recommended Liquids Thin Safety Precautions/Swallowing Reduce distractions,Remain Recommendations upright (90 degrees) during all oral intake,Upright position at least 30 minutes after meals,Small bites and sips when eating,Slow rate; swallow between bites Medication Recommendations As Tolerated Discharge Recommendations Outpatient therapy Education Patient/Caregiver Education Described results of evaluation,Patient expressed understanding of evaluation, Patient expressed agreement with goals & treatment plans, Patient expressed understanding of safety precautions,Patient expressed understanding of feeding recommendations Goals Short-term Goals Pt will follow safe swallow strategies to reduce risk of aspiration. Pt will perform exercises to improve strength and coordination of swallow musculature and reduce risk of aspiration. Long-term Goals The pt will tolerate least restrictive diet to meet her nutrition and hydration needs.
--- NOTE | 2021-02-20 15:24 | ST.OPTN ---
Visit Care Team Role Provider Type Helen Burroughs MD Family Provider Physician Primary Care Provider Address: [address] [place] [address], [phone] Attending Provider Referring Provider Address: Phone: Fax: SUPERVISOR WATERWORKS Treatment Note SUPERVISOR WATERWORKS Clinical Instructor Line Start: 01/03/21 16:53 Freq: Status: Active Protocol: Document 01/17/21 11:51 BUCK (Rec: 01/17/21 11:51 BUCK [email or web address]) Clinical Instructor Signature Clinical Instructor Clinical Instructor Yes SUPERVISOR WATERWORKS Treatment Note Start: 11/30/20 16:59 Freq: Status: Active Protocol: Document 02/20/21 14:33 BUCK (Rec: 02/20/21 14:34 BUCK [email or web address]) Speech Pathology Treatment Note Session Time Visit Start Time 13:35 Visit Stop Time 14:20 Total Visit Minutes 45 Visit Information Visit Number 02/14 Plan of Care Dates 11/30/20 - 03/02/21 Insurance Information Medicare Setting Treatment Setting Outpatient Care Visit Type Note Type Treatment Note Next Note Type Next Note Type Progress Note General Information General Information The pt is a 75-yr-old female recently diagnosed with Parkinson's disease. She is familiar to this SUPERVISOR WATERWORKS from previous therapy. The pt has a history of very frequent falls, often several in a week. On 11/24/20 she was seen at [facility] ED after a fall at home that resulted in scalp laceration and right C1 transverse process fracture. No hospitalization, surgery or neck brace was required. Pt was d/c'd home with instructions to take Tylenol for the pain. The pt denies changes in cognitive status from this and all other falls. Subjective Others Present Student Observations/Patient Presentation Pt arrived 5 min late. Left walker at home so was transported into clinic by via wheelchair. Pt continues to have falls at home. No new complaints. Pt has ordered The Breather RMST device and is awaiting its delivery. Chief Complaint(s) Speech,Language,Swallowing, Cognitive Patient Knowledge/Awareness of SUPERVISOR WATERWORKS Role Good in Treatment Parent/Caretake Knowledge/Awareness of Good SUPERVISOR WATERWORKS Role in Treatment Objective Short Term Goals 1. The pt will produce yes/no and left/right responses with 80% acc in structured tasks to improve accuracy and dependability of expressive language. 2. With collaboration from SUPERVISOR WATERWORKS , the pt will establish external memory tools in her functional environment to increase awareness and recall of date and daily tasks. 3. Given short stories presented orally or visually ( i.e., film), the pt will answer questions related to plot with 80% accuracy to improve general comprehension and resume hobby for improved QOL. 4. The pt will perform oral motor exercises to improve saliva management and reduce drooling. 5. Caregiver/spouse education and training to be provided as needed. Additional goals may be added upon further assessment of expressive and receptive language skills. Cigar Tobacco Processing Supervisor Goals 1. With use of environmental tools as needed, the pt will recall date and upcoming daily tasks/appts in 80% of opportunities, as measured by therapeutic trials, pt/spouse report, and clinician judgment . 2. Given short stories presented orally or visually ( i.e., film), the pt will retell main ideas of plot with 80% accuracy to improve general comprehension and resume hobby for improved QOL. 3. The pt will demonstrate 90% reliability in yes/no and right/left expression to improve expressive language and reduce confusion in functional conversations. Additional goals may be added upon further assessment of expressive and receptive language skills. Treatment Activities Trained pt in swallow exercises including laryngeal elevation via blowing/sucking in/out of straw (minimal elevation observed via palpation), effortful swallow, base of tongue exercises. Voice and swallow targeted with sustained phonation (MPT= 9 sec) and singing. Pt performed all exercises. Unable to produce Mary Kate. Assessment Patient Response to Treatment Fair Rehab Potential Fair Impairments Identified Attention,Cognitive-Linguistic Skills,Dysarthria,Expressive Language,Oral Motor,Parkinson' s Disease,Reading Comprehension,Speech Intelligibility,Vocal Quality, Other Additional Impairments Identified Saliva management; Progressive Supranuclear Palsy Progress Towards Goals Slow Progress Assessment of Overall Progress Improving Assessment of Improvement Pt able to perform most swallow exercises attempted with exception of Mary Kate. Exercises modified to pt's ability. Will f/u at next visit. Reviewed with Patient Goals,Progress Being Made,Home Exercise Program Patient/Caregiver Understanding Good Plan Amount of Therapy Recommended 4 Months Frequency of Treatment Once a Week Length of Session 45 Minutes Therapeutic Contents Client Education,Cognitive- Linguistic Training,Expressive Language Training,Home Exercise Program,Information Processing,Oral Motor Training Provided Patient/Caregiver Instruction Home Exercise Program,Plan of Care,Questions/Concerns Therapy Recommendations Continue with Current Program Suggested Referral Primary Care Physician,Other Other Referrals Psychiatric care
--- NOTE | 2021-03-01 18:21 | ST.OPTN ---
Visit Care Team Role Provider Type Helen Burroughs MD Family Provider Physician Primary Care Provider Address: [address] [place] [address], [id number] Attending Provider Referring Provider Address: Phone: Fax: DATA DELIVERABLES MANAGER Treatment Note DATA DELIVERABLES MANAGER Clinical Instructor Line Start: 01/03/21 16:53 Freq: Status: Active Protocol: Document 01/17/21 11:51 BUCK (Rec: 01/17/21 11:51 BUCK [email or web address]) Clinical Instructor Signature Clinical Instructor Clinical Instructor Yes DATA DELIVERABLES MANAGER Treatment Note Start: 11/30/20 16:59 Freq: Status: Active Protocol: Document 03/01/21 17:55 BUCK (Rec: 03/01/21 18:21 BUCK [email or web address]) Speech Pathology Treatment Note Session Time Visit Start Time 13:30 Visit Stop Time 14:20 Total Visit Minutes 50 Visit Information Visit Number 04/16 Plan of Care Dates 02/26/21 - 06/01/21 Insurance Information Medicare Setting Treatment Setting Outpatient Care Visit Type Note Type Progress Note Next Note Type Next Note Type Treatment Note General Information General Information The pt is a 75-yr-old female recently diagnosed with Parkinson's disease. She is familiar to this DATA DELIVERABLES MANAGER from previous therapy. The pt has a history of very frequent falls, often several in a week. On 11/24/20 she was seen at [facility] ED after a fall at home that resulted in scalp laceration and right C1 transverse process fracture. No hospitalization, surgery or neck brace was required. Pt was d/c'd home with instructions to take Tylenol for the pain. The pt denies changes in cognitive status from this and all other falls. Subjective Observations/Patient Presentation Pt arrived on time. Reported having received The Breather respiratory resistance training device and completed 4 sets of 10 reps each (total 40 reps) each of the last 2 days. The also c/o a hoarse voice and was noted to clear her throat continually throughout the session. Chief Complaint(s) Speech,Language,Swallowing, Cognitive Patient Knowledge/Awareness of DATA DELIVERABLES MANAGER Role Good in Treatment Parent/Caretake Knowledge/Awareness of Good DATA DELIVERABLES MANAGER Role in Treatment Objective Short Term Goals 1. The pt will produce yes/no and left/right responses with 80% acc in structured tasks to improve accuracy and dependability of expressive language. 2. With collaboration from DATA DELIVERABLES MANAGER , the pt will establish external memory tools in her functional environment to increase awareness and recall of date and daily tasks. 3. Given short stories presented orally or visually ( i.e., film), the pt will answer questions related to plot with 80% accuracy to improve general comprehension and resume hobby for improved QOL. 4. The pt will perform oral motor exercises to improve saliva management and reduce drooling. 5. Caregiver/spouse education and training to be provided as needed. 6. The pt will follow safe swallow strategies to reduce risk of aspiration. 7. The pt will perform exercises to increase strength and coordination of swallow musculature to reduce risk of aspiration. 8. The pt will perform respiratory muscle strength training (RMST) exercises to improve breath support for voice and airway protection. Penitentiary Goals 1. With use of environmental tools as needed, the pt will recall date and upcoming daily tasks/appts in 80% of opportunities, as measured by therapeutic trials, pt/spouse report, and clinician judgment . 2. Given short stories presented orally or visually ( i.e., film), the pt will retell main ideas of plot with 80% accuracy to improve general comprehension and resume hobby for improved QOL. 3. The pt will demonstrate 80% reliability in yes/no and right/left expression to improve expressive language and reduce confusion in functional conversations. 4. The pt will tolerate least restrictive diet to meet her nutrition and hydration needs. 5. The pt will demonstrate breath support sufficient to make herself heard by others in communication and to produce protective cough response as needed. Treatment Activities Education provided RE potential causes and effects of frequent throat clearing, including possible penetration of saliva as cause and hoarse voice as consequence. The pt' s voice was not perceived by this DATA DELIVERABLES MANAGER to be hoarse. Trained pt in hard swallow as alternative to throat clearing . The pt performed x3 during the session when she felt the need to clear her throat. She stated she felt relieved of throat irritation after swallowing but did continue with throat clearing shortly after. Needs reinforcement for carryover. The pt consumed 2 oz of thin liquid without immediate overt s/sx of aspiration but with delayed throat clearing consistent with clearing that was noted without oral intake. Difficult to determine if throat clearing is related to swallow of liquid, penetration of saliva, or habitual behavior. The latter was suggested by the pt, who felt this might be the situation; however, this DATA DELIVERABLES MANAGER has not observed frequent throat clearing in previous sessions. Educated and trained pt in VF adduction exercises both to maintain/improve vocal quality and protect the airway. Pt performed with hand presses while producing staccato vowels. Exercise was added to the pt's HEP. Assessment Patient Response to Treatment Fair Rehab Potential Fair Impairments Identified Attention,Cognitive-Linguistic Skills,Dysarthria,Expressive Language,Oral Motor,Parkinson' s Disease,Reading Comprehension,Speech Intelligibility,Vocal Quality, Other Additional Impairments Identified Saliva management; Progressive Supranuclear Palsy Progress Towards Goals Slow Progress Assessment of Overall Progress Improving Assessment of Improvement The pt exhibited new throat clearing throughout the session today. Difficult to determine the cause but suspect penetration of saliva d/t reduced swallow trigger and/or airway closure. Pt was receptive to education and able to perform VF adduction exercises to increase airway protection. The pt c/o a hoarse voice, which was not perceived by this DATA DELIVERABLES MANAGER. Nevertheless, the same new exercise will also target improved quality of voice. Over the course of treatment, the pt has made slow progress toward goals. She continues with mild-moderate cognitive communication deficits in areas of information processing, executive functions, and reasoning skills. Mild expressive language deficits are present impacted by slowed processing skills and occasional confusion with yes/no and right/left. Receptive language skills are also mildly impacted by slowed processing skills. The pt exhibits mild oropharyngeal dysphagia secondary to general reduced strength of musculature and resulting in occasional to frequent coughing d/t suspected incomplete airway closure with swallow. Given the diagnosis of PSP, continued skilled intervention is medically necessary for this patient to maintain highest level of function and independence in areas of expressive, receptive and cognitive communication and swallow safety. Reviewed with Patient Goals,Progress Being Made,Home Exercise Program Patient/Caregiver Understanding Good Plan Amount of Therapy Recommended 4 Months Frequency of Treatment Once a Week Length of Session 45 Minutes Therapeutic Contents Client Education,Cognitive- Linguistic Training,Expressive Language Training,Home Exercise Program,Information Processing,Oral Motor Training Provided Patient/Caregiver Instruction Home Exercise Program,Plan of Care,Questions/Concerns Therapy Recommendations Continue with Current Program Suggested Referral Primary Care Physician,Other Other Referrals Psychiatric care
--- NOTE | 2021-03-08 18:13 | ST.OPTN ---
Visit Care Team Role Provider Type Helen Burroughs MD Family Provider Physician Primary Care Provider Address: [address] [place] [address], [id number] Attending Provider Referring Provider Address: Phone: Fax: UNDERWRITING INTERN Treatment Note UNDERWRITING INTERN Clinical Instructor Line Start: 01/03/21 16:53 Freq: Status: Active Protocol: Document 01/17/21 11:51 BUCK (Rec: 01/17/21 11:51 BUCK [email or web address]) Clinical Instructor Signature Clinical Instructor Clinical Instructor Yes UNDERWRITING INTERN Treatment Note Start: 11/30/20 16:59 Freq: Status: Active Protocol: Document 03/08/21 17:53 BUCK (Rec: 03/08/21 18:08 BUCK [email or web address]) Speech Pathology Treatment Note Session Time Visit Start Time 13:30 Visit Stop Time 14:30 Total Visit Minutes 60 Visit Information Visit Number 07/17 Plan of Care Dates 02/26/21 - 06/01/21 Insurance Information Medicare Setting Treatment Setting Outpatient Care Visit Type Note Type Progress Note Next Note Type Next Note Type Treatment Note General Information General Information The pt is a 75-yr-old female recently diagnosed with Progressive Supranuclear Palsy . She is familiar to this UNDERWRITING INTERN from previous therapy. The pt has a history of very frequent falls, often several in a week. On 11/24/20 she was seen at [facility] ED after a fall at home that resulted in scalp laceration and right C1 transverse process fracture. No hospitalization, surgery or neck brace was required. Pt was d/c'd home with instructions to take Tylenol for the pain. The pt denies changes in cognitive status from this and all other falls. Over course of treatment, the pt and her have expressed concern of increased coughing with oral intake. Clinical bedside swallow evaluation indicated mild oropharyngeal dysphagia secondary to decreased muscular strength and coordination related to PSP diagnosis. Subjective Observations/Patient Presentation Pt arrived on time after PT appt. UNDERWRITING INTERN was informed by pt's PT that the pt had had a choking episode since last appt when she consumed 3 bites of meat at one time, requiring Heimlich maneuever attempted by her . Pt had reported that her was unsure of how to perform the maneuver, but that the pt did expel the meat. This was confirmed by the pt at the start of the session and by her , who attended at the end of the session. Chief Complaint(s) Speech,Language,Swallowing, Cognitive Patient Knowledge/Awareness of UNDERWRITING INTERN Role Good in Treatment Parent/Caretake Knowledge/Awareness of Good UNDERWRITING INTERN Role in Treatment Objective Short Term Goals 1. The pt will produce yes/no and left/right responses with 80% acc in structured tasks to improve accuracy and dependability of expressive language. 2. With collaboration from UNDERWRITING INTERN , the pt will establish external memory tools in her functional environment to increase awareness and recall of date and daily tasks. 3. Given short stories presented orally or visually ( i.e., film), the pt will answer questions related to plot with 80% accuracy to improve general comprehension and resume hobby for improved QOL. 4. The pt will perform oral motor exercises to improve saliva management and reduce drooling. 5. Caregiver/spouse education and training to be provided as needed. 6. The pt will follow safe swallow strategies to reduce risk of aspiration. 7. The pt will perform exercises to increase strength and coordination of swallow musculature to reduce risk of aspiration. 8. The pt will perform respiratory muscle strength training (RMST) exercises to improve breath support for voice and airway protection. Porcelain Finish Sprayer Goals 1. With use of environmental tools as needed, the pt will recall date and upcoming daily tasks/appts in 80% of opportunities, as measured by therapeutic trials, pt/spouse report, and clinician judgment . 2. Given short stories presented orally or visually ( i.e., film), the pt will retell main ideas of plot with 80% accuracy to improve general comprehension and resume hobby for improved QOL. 3. The pt will demonstrate 80% reliability in yes/no and right/left expression to improve expressive language and reduce confusion in functional conversations. 4. The pt will tolerate least restrictive diet to meet her nutrition and hydration needs. 5. The pt will demonstrate breath support sufficient to make herself heard by others in communication and to produce protective cough response as needed. Treatment Activities Educated pt (and at end of session) in Heimlich maneuver orally, with demonstration and in writing. Also educated pt in self- administration of Heimlich using a table or back of chair . Expressed pt should use closest object possible to avoid falling while attempting to reach on object. Pt verbalized understanding. General aspiration precautions were also recommended with oral and written instructions, including small bites; releasing utensil between bites; chewing very well; no talking while eating; and resuming next bite only when previous bolus is swallowed completely. These recommendations/steps were provided in large print writing. The pt read them aloud, and pt/spouse were instructed to tape written instructions next to the pt's seat at the table as visual reminder, with oral reminders as needed. Pt/spouse verbalized understanding and agreement. Trialed these strategies with the patient with trials of dysphagia mechanical texture and thin liquid. The pt exhibited coughing x1 when she attempted to talk prior to completion of swallow. Skilled feedback was provided. Occasional mild throat clearing was also observed during and prior to oral trials, improved as compared to last week. Discussed with pt/spouse recommendation for Modified Barium Swallow Study to further evaluate the pt's swallow function and safety to guide POC. Pt/spouse were in agreement. UNDERWRITING INTERN to fax request to MD. Assessment Patient Response to Treatment Fair Rehab Potential Fair Impairments Identified Attention,Cognitive-Linguistic Skills,Dysarthria,Expressive Language,Oral Motor,Parkinson' s Disease,Reading Comprehension,Speech Intelligibility,Vocal Quality, Other Additional Impairments Identified Saliva management; Progressive Supranuclear Palsy Progress Towards Goals Slow Progress Assessment of Overall Progress Improving Assessment of Improvement Pt experienced significant choking episode at home secondary to seemingly impulsive behavior and decreased awareness and/or reasoning skills in consuming three bites of meat at one time. She was responsive to education and recommendations today and independently followed safe swallow recommendations during clinical trials with exception of talking x1 prior to completion of swallow, which resulted in moderate coughing. Concern for decline in swallow safety warrants administration of Modified Barium Swallow Study (MBSS) for further evaluation of current function/safety to guide POC and planning in presence of a progressive disease. Reviewed with Patient Goals,Progress Being Made,Home Exercise Program Patient/Caregiver Understanding Good Plan Amount of Therapy Recommended 4 Months Frequency of Treatment Once a Week Length of Session 45 Minutes Treatment Emphasis Next Session Swallow safety; MBSS when ordered Therapeutic Contents Client Education,Cognitive- Linguistic Training,Expressive Language Training,Home Exercise Program,Information Processing,Oral Motor Training Provided Patient/Caregiver Instruction Home Exercise Program,Plan of Care,Questions/Concerns Therapy Recommendations Continue with Current Program Suggested Referral Primary Care Physician,Other Other Referrals Psychiatric care
--- NOTE | 2021-03-14 13:54 | ST.OPTN ---
Addendum entered and electronically signed by Giovanny Pool 03/14/21 14:04: [employer] spoke with Nieves Dykes OT, who has been working with the pt in her home. Pt/spouse reported at last week's session they were unsure if Ms. Dykes was going to continue working with them. In phone conversation today, Ms. Dykes indicated she has seen no measurable progress with the pt in their work together and stated she would call the couple and schedule another visit. Original Note: Visit Care Team Role Provider Type Helen Burroughs MD Family Provider Physician Primary Care Provider Address: [address] [place] [address], [id number] Attending Provider Referring Provider Address: Phone: Fax: [employer] Treatment Note [employer] Clinical Instructor Line Start: 01/03/21 16:53 Freq: Status: Active Protocol: Document 01/17/21 11:51 BUKC (Rec: 01/17/21 11:51 [email or web address] [email or web address]) Clinical Instructor Signature Clinical Instructor Clinical Instructor Yes [employer] Treatment Note Start: 11/30/20 16:59 Freq: Status: Active Protocol: Document 03/14/21 13:30 BUCK (Rec: 03/14/21 13:54 BUCK [email or web address]) Speech Pathology Treatment Note Session Time Visit Start Time 12:30 Visit Stop Time 13:20 Total Visit Minutes 50 Visit Information Visit Number [id number] Plan of Care Dates 02/26/21 - 06/01/21 Insurance Information Medicare Setting Treatment Setting Outpatient Care Visit Type Note Type Progress Note Next Note Type Next Note Type Treatment Note General Information General Information The pt is a 75-yr-old female recently diagnosed with Progressive Supranuclear Palsy . She is familiar to this [employer] from previous therapy. The pt has a history of very frequent falls, often several in a week. On 11/24/20 she was seen at [facility] ED after a fall at home that resulted in scalp laceration and right C1 transverse process fracture. No hospitalization, surgery or neck brace was required. Pt was d/c'd home with instructions to take Tylenol for the pain. The pt denies changes in cognitive status from this and all other falls. Over course of treatment, the pt and her have expressed concern of increased coughing with oral intake. Clinical bedside swallow evaluation indicated mild oropharyngeal dysphagia secondary to decreased muscular strength and coordination related to PSP diagnosis. Subjective Observations/Patient Presentation Pt arrived on time accompanied by her who was not present during the session. He reported that the pt had fallen on 03/09/21 and lost consciousness for ~4 min. He took her to the ED, where NIHSS was [address] scan showed (1) No acute intracranial process.? Right frontal scalp hematoma; (2) Moderate atrophy and chronic microvascular ischemic changes. Today the pt had a visible bruise around the bottom of her right eye and at right cheekbone. The pt/spouse also reported no obvious dysphagia symptoms since last visit. Both stated that the visual aid placed at the pt's seat at the table is helping her to eat slowly and mindfully. RMST: The pt reported completing 30-60 reps at a time x2-3/day, performed every other day. ? Chief Complaint(s) Speech,Language,Swallowing, Cognitive Patient Knowledge/Awareness of [employer] Role Good in Treatment Parent/Caretake Knowledge/Awareness of Good [employer] Role in Treatment Objective Short Term Goals 1. The pt will produce yes/no and left/right responses with 80% acc in structured tasks to improve accuracy and dependability of expressive language. 2. With collaboration from [employer] , the pt will establish external memory tools in her functional environment to increase awareness and recall of date and daily tasks. 3. Given short stories presented orally or visually ( i.e., film), the pt will answer questions related to plot with 80% accuracy to improve general comprehension and resume hobby for improved QOL. 4. The pt will perform oral motor exercises to improve saliva management and reduce drooling. 5. Caregiver/spouse education and training to be provided as needed. 6. The pt will follow safe swallow strategies to reduce risk of aspiration. 7. The pt will perform exercises to increase strength and coordination of swallow musculature to reduce risk of aspiration. 8. The pt will perform respiratory muscle strength training (RMST) exercises to improve breath support for voice and airway protection. Halfway Goals 1. With use of environmental tools as needed, the pt will recall date and upcoming daily tasks/appts in 80% of opportunities, as measured by therapeutic trials, pt/spouse report, and clinician judgment . 2. Given short stories presented orally or visually ( i.e., film), the pt will retell main ideas of plot with 80% accuracy to improve general comprehension and resume hobby for improved QOL. 3. The pt will demonstrate 80% reliability in yes/no and right/left expression to improve expressive language and reduce confusion in functional conversations. 4. The pt will tolerate least restrictive diet to meet her nutrition and hydration needs. 5. The pt will demonstrate breath support sufficient to make herself heard by others in communication and to produce protective cough response as needed. Treatment Activities Consulted with pt/spouse RE the pt's recent fall and ED visit. No resulting congitive or speech/language impairments were noted. Reviewed tx goals with pt. The pt reported ongoing occasional confusion between yes and no, which she stated frustrates her . Re- educated pt on strategies of using head gestures and verbal responses in complete sentences; gestures to ensure the pt's [place] spouse understands her responses, and complete sentences to increase pt's awareness of her responses and their validity. Given picture scenarios and yes/no questions, the pt made one error in her responses, but self-corrected immediately prior to producing a complete sentence. All other responses were accurate; the pt used appropriate head gestures with all yes/no responses; and all but one response was made in complete sentences. Regarding comprehension of left and right, the pt stated she practices following right/ left directions with her PT frequently and feels this has helped to reduce confusion. Strategies for safe swallow and for yes/no responses were provided in large print writing for carryover in home practice. Assessed pt's use of The B[employer]her RMST device. Pt felt setting for inhalation could be advanced from level 1 to 2. This was done and the pt completed 15 reps with conisistent effort and complete in/exhalations. Level 2 setting for both inhalation and exhalation are appropriate for home practice. Assessment Patient Response to Treatment Fair Rehab Potential Fair Impairments Identified Attention,Cognitive-Linguistic Skills,Dysarthria,Expressive Language,Oral Motor,Parkinson' s Disease,Reading Comprehension,Speech Intelligibility,Vocal Quality, Other Additional Impairments Identified Saliva management; Progressive Supranuclear Palsy Progress Towards Goals Slow Progress Assessment of Overall Progress Improving Assessment of Improvement Pt's swallow safety is improved with visual prompts at place-setting and with 's review of strategies prior to meals. She is performing RMST exercises appropriately, and reporting excellent compliance at home. The pt continues with occasion confusion RE yes and no. She did well responding to questions in session using head gestures and complete sentences. Upon one errored response, the pt immediately self-corrected, possibly from locating the visual target while answering or from benefit of using a complete sentence response, which is aimed at increasing the pt's awareness and processing of information. No changes in speech, language or cognitive communication skills were observed today secondary to the pt's recent fall and LOC. Reviewed with Patient Goals,Progress Being Made,Home Exercise Program Patient/Caregiver Understanding Good Plan Amount of Therapy Recommended 4 Months Frequency of Treatment Once a Week Length of Session 45 Minutes Treatment Emphasis Next Session MBSS when ordered; expression of right/left Therapeutic Contents Client Education,Cognitive- Linguistic Training,Expressive Language Training,Home Exercise Program,Information Processing,Oral Motor Training Provided Patient/Caregiver Instruction Home Exercise Program,Plan of Care,Questions/Concerns Therapy Recommendations Continue with Current Program Suggested Referral Primary Care Physician,Other Other Referrals Psychiatric care
--- NOTE | 2021-04-05 13:30 | ST.OPTN ---
Visit Care Team Role Provider Type Helen Burroughs MD Family Provider Physician Primary Care Provider Address: [address] [place] [address], [id number] Attending Provider Referring Provider Address: Phone: Fax: COMMUNITY LEADER Treatment Note COMMUNITY LEADER Clinical Instructor Line Start: 01/03/21 16:53 Freq: Status: Active Protocol: Document 01/17/21 11:51 BUCK (Rec: 01/17/21 11:51 [email or web address] [email or web address]) Clinical Instructor Signature Clinical Instructor Clinical Instructor Yes COMMUNITY LEADER Treatment Note Start: 11/30/20 16:59 Freq: Status: Active Protocol: Document 04/05/21 17:37 BUCK (Rec: 04/05/21 17:37 [email or web address] [email or web address]) Speech Pathology Treatment Note Session Time Visit Start Time 12:35 Visit Stop Time 13:20 Total Visit Minutes 45 Visit Information Visit Number 10/15 Plan of Care Dates 02/26/21 - 06/01/21 Insurance Information Medicare Setting Treatment Setting Outpatient Care Visit Type Note Type Progress Note Next Note Type Next Note Type Treatment Note General Information General Information The pt is a 75-yr-old female recently diagnosed with Progressive Supranuclear Palsy . She is familiar to this COMMUNITY LEADER from previous therapy. The pt has a history of very frequent falls, often several in a week. On 11/24/20 she was seen at [facility] ED after a fall at home that resulted in scalp laceration and right C1 transverse process fracture. No hospitalization, surgery or neck brace was required. Pt was d/c'd home with instructions to take Tylenol for the pain. The pt denies changes in cognitive status from this and all other falls. Over course of treatment, the pt and her have expressed concern of increased coughing with oral intake. Clinical bedside swallow evaluation indicated mild oropharyngeal dysphagia secondary to decreased muscular strength and coordination related to PSP diagnosis. Subjective Observations/Patient Presentation Pt arrived on time accompanied by her who was not present during the session. No new complaints. The pt has not fallen since last session, demonstrating benefit from use of the walker. She also stated that she has not increased participation with household activities and still would like to. She spends much of her days listening to audio books but expressed a desire to be able to read along with books while she listens to them but is unable to do so for lack of that kind of service. Chief Complaint(s) Speech,Language,Swallowing, Cognitive Patient Knowledge/Awareness of COMMUNITY LEADER Role Good in Treatment Parent/Caretake Knowledge/Awareness of Good COMMUNITY LEADER Role in Treatment Objective Short Term Goals 1. The pt will produce yes/no and left/right responses with 80% acc in structured tasks to improve accuracy and dependability of expressive language. 2. With collaboration from COMMUNITY LEADER , the pt will establish external memory tools in her functional environment to increase awareness and recall of date and daily tasks. 3. Given short stories presented orally or visually ( i.e., film), the pt will answer questions related to plot with 80% accuracy to improve general comprehension and resume hobby for improved QOL. 4. The pt will perform oral motor exercises to improve saliva management and reduce drooling. 5. Caregiver/spouse education and training to be provided as needed. 6. The pt will follow safe swallow strategies to reduce risk of aspiration. 7. The pt will perform exercises to increase strength and coordination of swallow musculature to reduce risk of aspiration. 8. The pt will perform respiratory muscle strength training (RMST) exercises to improve breath support for voice and airway protection. Fpc Goals 1. With use of environmental tools as needed, the pt will recall date and upcoming daily tasks/appts in 80% of opportunities, as measured by therapeutic trials, pt/spouse report, and clinician judgment . 2. Given short stories presented orally or visually ( i.e., film), the pt will retell main ideas of plot with 80% accuracy to improve general comprehension and resume hobby for improved QOL. 3. The pt will demonstrate 80% reliability in yes/no and right/left expression to improve expressive language and reduce confusion in functional conversations. 4. The pt will tolerate least restrictive diet to meet her nutrition and hydration needs. 5. The pt will demonstrate breath support sufficient to make herself heard by others in communication and to produce protective cough response as needed. Treatment Activities Introduced pt to [employer] iza, which provides audio reading of written texts , including books from a vast online library, while highlighting the words as they are read by the simulated voice. The pt expressed strong interest in using this technology to enable her to continue with her reading skills is a way that meets her visual and cognitive impairment needs. Initiated training of the iza with built -in tutorial. Assessed and adjusted rate of speech and font size to meet the pt's needs and comfort levels. After adjustments, the pt was able to follow along visually with the text while also listening to it. She expressed appreciation and excitement about using the iza. Instructions for downloading the iza were provided to the pt for home use. Will f/u as needed at next session. Assessment Patient Response to Treatment Fair Rehab Potential Fair Impairments Identified Attention,Cognitive-Linguistic Skills,Dysarthria,Expressive Language,Oral Motor,Parkinson' s Disease,Reading Comprehension,Speech Intelligibility,Vocal Quality, Other Additional Impairments Identified Saliva management; Progressive Supranuclear Palsy Progress Towards Goals Slow Progress Assessment of Overall Progress Improving Assessment of Improvement The pt was enthusiastic and stimulable for use of [employer] iza to increase her ability to read books and participate in meaningful and cognitively stimulating hobby. She benefited from enlarged font size, reduced rate of computerized speech, and isolation of text to 3 lines at a time vs an entire page. Reviewed with Patient Goals,Progress Being Made,Home Exercise Program Patient/Caregiver Understanding Good Plan Amount of Therapy Recommended 4 Months Frequency of Treatment Once a Week Length of Session 45 Minutes Treatment Emphasis Next Session Continue training of [employer] Therapeutic Contents Client Education,Cognitive- Linguistic Training,Expressive Language Training,Home Exercise Program,Information Processing,Oral Motor Training Provided Patient/Caregiver Instruction Home Exercise Program,Plan of Care,Questions/Concerns Therapy Recommendations Continue with Current Program Suggested Referral Primary Care Physician,Other Other Referrals Psychiatric care
--- NOTE | 2021-04-12 16:16 | ST.OPTN ---
Visit Care Team Role Provider Type Helen Burroughs MD Family Provider Physician Primary Care Provider Address: [address] [place] [address], [id number] Attending Provider Referring Provider Address: Phone: Fax: BIOSTATISTICS TEACHER Treatment Note BIOSTATISTICS TEACHER Clinical Instructor Line Start: 01/03/21 16:53 Freq: Status: Active Protocol: Document 01/17/21 11:51 BUCK (Rec: 01/17/21 11:51 [email or web address] [email or web address]) Clinical Instructor Signature Clinical Instructor Clinical Instructor Yes BIOSTATISTICS TEACHER Treatment Note Start: 11/30/20 16:59 Freq: Status: Active Protocol: Document 04/12/21 15:28 BUCK (Rec: 04/12/21 16:16 [email or web address] [email or web address]) Speech Pathology Treatment Note Session Time Visit Start Time 13:30 Visit Stop Time 14:15 Total Visit Minutes 45 Visit Information Visit Number 11/14 Plan of Care Dates 02/26/21 - 06/01/21 Insurance Information Medicare Setting Treatment Setting Outpatient Care Visit Type Note Type Progress Note Next Note Type Next Note Type Treatment Note General Information General Information The pt is a 75-yr-old female recently diagnosed with Progressive Supranuclear Palsy . She is familiar to this BIOSTATISTICS TEACHER from previous therapy. The pt has a history of very frequent falls, often several in a week. On 11/24/20 she was seen at [facility] ED after a fall at home that resulted in scalp laceration and right C1 transverse process fracture. No hospitalization, surgery or neck brace was required. Pt was d/c'd home with instructions to take Tylenol for the pain. The pt denies changes in cognitive status from this and all other falls. Over course of treatment, the pt and her have expressed concern of increased coughing with oral intake. Clinical bedside swallow evaluation indicated mild oropharyngeal dysphagia secondary to decreased muscular strength and coordination related to PSP diagnosis. Subjective Observations/Patient Presentation Pt arrived on time accompanied by her who reported on several topics: 1. Yesterday the pt fell backward over her wheelchair when attempting to sit in it after brushing her teeth in the bathroom. She cut the back of her head but no other injury was found from medical staff at both the ED and at her neurologist's office (Dr. Damon at [facility]) when evaluated the same day of the fall. Neurology performed a cognitive screening without significant findings, as well. 2. The pt will likely transfer neurologic care from [facility] to [facility] because it is more accessible logistically and the pt/spouse are equally happy with the care received at both. 3. The pt will participate in a sleep study in the coming weeks to evaluate for sleep apnea and/or if a CPAP might be beneficial in reducing coughing and difficulty breathing at night. 4. The pt is having difficulty manipulating food with utensils seemingly d/t poor vision. As a result, she often gets no food on utensils or gets too much food on utensils and spills it or consumes bite sizes that are too large for safety. She uses weighted silverware and plates with raised edges, but these are not helpful. 5. The pt is having difficulty drinking from cups. She raises a cup/glass to her mouth but hesitates to drink. When she does, she takes very small amounts at a time or does not adequately tip the cup upward to access the liquid. Her is concerned that she is not getting adequate hydration. Chief Complaint(s) Speech,Language,Swallowing, Cognitive Patient Knowledge/Awareness of BIOSTATISTICS TEACHER Role Good in Treatment Parent/Caretake Knowledge/Awareness of Good BIOSTATISTICS TEACHER Role in Treatment Objective Short Term Goals 1. The pt will produce yes/no and left/right responses with 80% acc in structured tasks to improve accuracy and dependability of expressive language. 2. With collaboration from BIOSTATISTICS TEACHER , the pt will establish external memory tools in her functional environment to increase awareness and recall of date and daily tasks. 3. Given short stories presented orally or visually ( i.e., film), the pt will answer questions related to plot with 80% accuracy to improve general comprehension and resume hobby for improved QOL. 4. The pt will perform oral motor exercises to improve saliva management and reduce drooling. 5. Caregiver/spouse education and training to be provided as needed. 6. The pt will follow safe swallow strategies to reduce risk of aspiration. 7. The pt will perform exercises to increase strength and coordination of swallow musculature to reduce risk of aspiration. 8. The pt will perform respiratory muscle strength training (RMST) exercises to improve breath support for voice and airway protection. Jail Goals 1. With use of environmental tools as needed, the pt will recall date and upcoming daily tasks/appts in 80% of opportunities, as measured by therapeutic trials, pt/spouse report, and clinician judgment . 2. Given short stories presented orally or visually ( i.e., film), the pt will retell main ideas of plot with 80% accuracy to improve general comprehension and resume hobby for improved QOL. 3. The pt will demonstrate 80% reliability in yes/no and right/left expression to improve expressive language and reduce confusion in functional conversations. 4. The pt will tolerate least restrictive diet to meet her nutrition and hydration needs. 5. The pt will demonstrate breath support sufficient to make herself heard by others in communication and to produce protective cough response as needed. Treatment Activities Consulted with pt/spouse regarding the issues stated above with the following responses/agreement/ recommendations: 1 & 2. Following the treatment session, this BIOSTATISTICS TEACHER informed the pt's PT, Lynne Fernández, about the fall so wheelchair safety could be further addressed and about the pt's likely decision to transfer neurologic care. No changes in expressive, receptive or cognitive communication were noted in the pt by the BIOSTATISTICS TEACHER during the session. 3. This BIOSTATISTICS TEACHER is in support of a sleep study for assessment of sleep behaviors/patterns that may impact breathing and saliva management. Also again recommended a Modified Barium Swallow Study to assess swallow function/safety. No orders have been received from previous request. BIOSTATISTICS TEACHER will s/ u with another request. Will fax to new request to Dr. Damon. 4. BIOSTATISTICS TEACHER agreed to discuss plate and utensil needs with OT and report back to pt/spouse with any recommendations. 5. Recommended evaluating pt's swallow safety with straws. The pt's stated the pt does not like drinking from straws, but the pt was agreeable to trying. Evaluated pt's ability and safety in drinking from typical size and wide straws as well as Nosey cup with thin liquids and NTLs. The pt consumed adequate amounts of liquid via both straws, and expressed a preference for the typically sized straw. She exhibited immediate throat clearing after the first sip from the smaller of the two straws; however, this sip was noted to be rather large. Second sip from same straw was better controlled and smaller and resulted in milder delayed throat clearing. Pt demonstrated same response with both larger straw and with thin liquid from Nosey cup. When drinking from the Nosey cup, the pt was, in fact , quite slow to consume liquid once she brought the cup to her lips and consumed small sips at a time. Again delayed mild throat clearing was observed, and the pt expressed a dislike of the Nosey cup. Her stated preference was the smaller of the two straws. Trialed pt with NTL via straw. Pt exhibited reduced yet still present delayed mild throat clearing and reported feeling it was easier to swallow NT vs thin liquid. BIOSTATISTICS TEACHER instructed the pt to cough hard. The pt produced a very weak, breathy cough and then was unable to volitionally produce any cough at all. This is concerning for swallow safety, which was expressed to the pt. BIOSTATISTICS TEACHER emphasized importance of regular RMST exercise with The Breather. The pt stated she is exercising daily. BIOSTATISTICS TEACHER requested she bring the training device with her to each therapy session. Pt agreed. Education and training was provided RE purpose and process of thickening liquids for swallow safety. Sample packets of thickening gel were provided along with written instructions and website for ordering online. Assessment Patient Response to Treatment Fair Rehab Potential Fair Impairments Identified Attention,Cognitive-Linguistic Skills,Dysarthria,Expressive Language,Oral Motor,Parkinson' s Disease,Reading Comprehension,Speech Intelligibility,Vocal Quality, Other Additional Impairments Identified Saliva management; Progressive Supranuclear Palsy Progress Towards Goals Slow Progress Assessment of Overall Progress Improving Assessment of Improvement Pt/Spouse report multiple areas of concern. The pt was agreeable to drinking from straw, which allowed her better access to liquids that regular or Nosey cups. She was able to self-regulate and control sip size. She did exhibit frequent throat clearing with both thin and nectar-thick liquids, greater with thin. NTLs are recommended if the pt is exhibiting frequent coughing or throat clearing with thin liquid intake, such as at times when she is feeling fatigued. MBSS is strongly recommended, and orders will be pursued through Dr. Damon , Neurologist. Pt and spouse are in agreement with this. No changes in expressive, receptive or cognitive communication were observed since the pt's fall yesterday. Reviewed with Patient Goals,Progress Being Made,Home Exercise Program Patient/Caregiver Understanding Good Plan Amount of Therapy Recommended 4 Months Frequency of Treatment Once a Week Length of Session 45 Minutes Treatment Emphasis Next Session Continue training of Voice [facility] [place] Therapeutic Contents Client Education,Cognitive- Linguistic Training,Expressive Language Training,Home Exercise Program,Information Processing,Oral Motor Training Provided Patient/Caregiver Instruction Home Exercise Program,Plan of Care,Questions/Concerns Therapy Recommendations Continue with Current Program Suggested Referral Primary Care Physician,Other Other Referrals Psychiatric care
--- NOTE | 2021-05-03 15:25 | ST.OPTN ---
Visit Care Team Role Provider Type Helen Burroughs MD Family Provider Physician Primary Care Provider Address: [address] [place] [address], [id number] Attending Provider Referring Provider Address: Phone: Fax: INSULATION MECHANIC Treatment Note INSULATION MECHANIC Clinical Instructor Line Start: 01/03/21 16:53 Freq: Status: Active Protocol: Document 01/17/21 11:51 BUCK (Rec: 01/17/21 11:51 BUCK [email or web address]) Clinical Instructor Signature Clinical Instructor Clinical Instructor Yes INSULATION MECHANIC Treatment Note Start: 11/30/20 16:59 Freq: Status: Active Protocol: Document 05/03/21 18:00 BUCK (Rec: 05/03/21 18:04 BUCK [email or web address]) Speech Pathology Treatment Note Session Time Visit Start Time 12:30 Visit Stop Time 13:20 Total Visit Minutes 50 Visit Information Visit Number 12/15 Plan of Care Dates 02/26/21 - 06/01/21 Insurance Information Medicare Setting Treatment Setting Outpatient Care Visit Type Note Type Progress Note Next Note Type Next Note Type Treatment Note General Information General Information The pt is a 75-yr-old female recently diagnosed with Progressive Supranuclear Palsy . She is familiar to this INSULATION MECHANIC from previous therapy. The pt has a history of very frequent falls, often several in a week. On 11/24/20 she was seen at [facility] ED after a fall at home that resulted in scalp laceration and right C1 transverse process fracture. No hospitalization, surgery or neck brace was required. Pt was d/c'd home with instructions to take Tylenol for the pain. The pt denies changes in cognitive status from this and all other falls. Over course of treatment, the pt and her have expressed concern of increased coughing with oral intake. Clinical bedside swallow evaluation indicated mild oropharyngeal dysphagia secondary to decreased muscular strength and coordination related to PSP diagnosis. Subjective Observations/Patient Presentation Pt arrived on time unaccompanied. Reports continued difficulty eating, primarily getting food onto utensil and from plate to mouth, largely d/t visual deficits. Pt stated she has double vision which it sometimes minimall improved by removing her glasses. Chief Complaint(s) Speech,Language,Swallowing, Cognitive Patient Knowledge/Awareness of INSULATION MECHANIC Role Good in Treatment Parent/Caretake Knowledge/Awareness of Good INSULATION MECHANIC Role in Treatment Objective Short Term Goals 1. The pt will produce yes/no and left/right responses with 80% acc in structured tasks to improve accuracy and dependability of expressive language. 2. With collaboration from INSULATION MECHANIC , the pt will establish external memory tools in her functional environment to increase awareness and recall of date and daily tasks. 3. Given short stories presented orally or visually ( i.e., film), the pt will answer questions related to plot with 80% accuracy to improve general comprehension and resume hobby for improved QOL. 4. The pt will perform oral motor exercises to improve saliva management and reduce drooling. 5. Caregiver/spouse education and training to be provided as needed. 6. The pt will follow safe swallow strategies to reduce risk of aspiration. 7. The pt will perform exercises to increase strength and coordination of swallow musculature to reduce risk of aspiration. 8. The pt will perform respiratory muscle strength training (RMST) exercises to improve breath support for voice and airway protection. Care Home Goals 1. With use of environmental tools as needed, the pt will recall date and upcoming daily tasks/appts in 80% of opportunities, as measured by therapeutic trials, pt/spouse report, and clinician judgment . 2. Given short stories presented orally or visually ( i.e., film), the pt will retell main ideas of plot with 80% accuracy to improve general comprehension and resume hobby for improved QOL. 3. The pt will demonstrate 80% reliability in yes/no and right/left expression to improve expressive language and reduce confusion in functional conversations. 4. The pt will tolerate least restrictive diet to meet her nutrition and hydration needs. 5. The pt will demonstrate breath support sufficient to make herself heard by others in communication and to produce protective cough response as needed. Treatment Activities Prior to the session, this INSULATION MECHANIC consulted with OT, Rebecca Villagran, who is familiar with the pt. Ms Villagran provided recommendations for plate and utensils choices that may assist in feeding, as well as environmental and communication strategies to promote visual access to foods . These recommendations were provided to the pt orally and in writing, as well as resources for purchasing plates and utensils. The pt verbalized understanding and identified plates that she thought might be helpful. Continue training in use of [employer] iza to increase the pt's ability to listen to and read (by following along with printed text) books. Training was initiated via the written instruction manual. The pt followed highlighted text visually as it was read aloud. Font size and rate of speech were adjusted to meet the pt's needs. Attempted to load a book of the pt's choosing; however, attempts were unsuccessful as were troubleshooting attempts. INSULATION MECHANIC to troubleshoot again before next session and reattempt. Assessment Patient Response to Treatment Fair Rehab Potential Fair Impairments Identified Attention,Cognitive-Linguistic Skills,Dysarthria,Expressive Language,Oral Motor,Parkinson' s Disease,Reading Comprehension,Speech Intelligibility,Vocal Quality, Other Additional Impairments Identified Saliva management; Progressive Supranuclear Palsy Progress Towards Goals Slow Progress Assessment of Overall Progress Improving Assessment of Improvement The pt was agreeable to recommendations to assist with feeding and visualization of foods during meals, which is complicated by the pt's visual impairments. The pt continues to express strong desire to visually follow along with texts while listening to audiobooks to increase comprehension and maintain a hobby that brings her pleasure and increases quality of life in the midst of limitations to participate in other activities. Progress was made in training with the [employer] iza but silted d/ t technical difficulties. Will continue at next session. Reviewed with Patient Goals,Progress Being Made,Home Exercise Program Patient/Caregiver Understanding Good Plan Amount of Therapy Recommended 4 Months Frequency of Treatment Once a Week Length of Session 45 Minutes Treatment Emphasis Next Session Continue training of [employer] Therapeutic Contents Client Education,Cognitive- Linguistic Training,Expressive Language Training,Home Exercise Program,Information Processing,Oral Motor Training Provided Patient/Caregiver Instruction Home Exercise Program,Plan of Care,Questions/Concerns Therapy Recommendations Continue with Current Program Suggested Referral Primary Care Physician,Other
--- NOTE | 2021-05-10 14:30 | ST.OPTN ---
Visit Care Team Role Provider Type Helen Burroughs MD Family Provider Physician Primary Care Provider Address: [address] [place] [address], [id number] Attending Provider Referring Provider Address: Phone: Fax: DIE MOUNTER Treatment Note DIE MOUNTER Clinical Instructor Line Start: 01/03/21 16:53 Freq: Status: Active Protocol: Document 01/17/21 11:51 BUCK (Rec: 01/17/21 11:51 BUCK [email or web address]) Clinical Instructor Signature Clinical Instructor Clinical Instructor Yes DIE MOUNTER Treatment Note Start: 11/30/20 16:59 Freq: Status: Active Protocol: Document 05/10/21 17:37 BUCK (Rec: 05/10/21 17:38 BUCK [email or web address]) Speech Pathology Treatment Note Session Time Visit Start Time 12:30 Visit Stop Time 13:20 Total Visit Minutes 50 Visit Information Visit Number 01/14 Plan of Care Dates 02/26/21 - 06/01/21 Insurance Information Medicare Setting Treatment Setting Outpatient Care Visit Type Note Type Progress Note Next Note Type Next Note Type Treatment Note General Information General Information The pt is a 75-yr-old female recently diagnosed with Progressive Supranuclear Palsy . She is familiar to this DIE MOUNTER from previous therapy. The pt has a history of very frequent falls, often several in a week. On 11/24/20 she was seen at [facility] ED after a fall at home that resulted in scalp laceration and right C1 transverse process fracture. No hospitalization, surgery or neck brace was required. Pt was d/c'd home with instructions to take Tylenol for the pain. The pt denies changes in cognitive status from this and all other falls. Over course of treatment, the pt and her have expressed concern of increased coughing with oral intake. Clinical bedside swallow evaluation indicated mild oropharyngeal dysphagia secondary to decreased muscular strength and coordination related to PSP diagnosis. Subjective Observations/Patient Presentation Pt arrived on time unaccompanied. Reported having discussed with her the plate and setting options addressed at last session and choosing options that she feels will better serve her needs. She also reported her 's continued difficulty hearing her speech. The pt has continued with RMST exercises but feels she is no longer benefiting from it or noting impoved strength. She did not bring her device with her to today's session. Chief Complaint(s) Speech,Language,Swallowing, Cognitive Patient Knowledge/Awareness of DIE MOUNTER Role Good in Treatment Parent/Caretake Knowledge/Awareness of Good DIE MOUNTER Role in Treatment Objective Short Term Goals 1. The pt will produce yes/no and left/right responses with 80% acc in structured tasks to improve accuracy and dependability of expressive language. 2. With collaboration from DIE MOUNTER , the pt will establish external memory tools in her functional environment to increase awareness and recall of date and daily tasks. 3. Given short stories presented orally or visually ( i.e., film), the pt will answer questions related to plot with 80% accuracy to improve general comprehension and resume hobby for improved QOL. 4. The pt will perform oral motor exercises to improve saliva management and reduce drooling. 5. Caregiver/spouse education and training to be provided as needed. 6. The pt will follow safe swallow strategies to reduce risk of aspiration. 7. The pt will perform exercises to increase strength and coordination of swallow musculature to reduce risk of aspiration. 8. The pt will perform respiratory muscle strength training (RMST) exercises to improve breath support for voice and airway protection. Junk Removal Specialist Goals 1. With use of environmental tools as needed, the pt will recall date and upcoming daily tasks/appts in 80% of opportunities, as measured by therapeutic trials, pt/spouse report, and clinician judgment . 2. Given short stories presented orally or visually ( i.e., film), the pt will retell main ideas of plot with 80% accuracy to improve general comprehension and resume hobby for improved QOL. 3. The pt will demonstrate 80% reliability in yes/no and right/left expression to improve expressive language and reduce confusion in functional conversations. 4. The pt will tolerate least restrictive diet to meet her nutrition and hydration needs. 5. The pt will demonstrate breath support sufficient to make herself heard by others in communication and to produce protective cough response as needed. Treatment Activities Education was provided to the pt RE the nature of PSP, as indicated by research, that physical exercise appears to have limited benefit (NINDS NIH PSP Fact Sheet #3281_3, 2020). Therefore, discussion was had RE amplification devices that may assist in compensating for both the pt's reduced vocal loudness and her 's hearing impairment. Two amplification devices were compared: portable voice amplifiers (e.g ., [employer]) and Speech[employer]ive prosthetic device which triggers the Jung reflex, causing the wearer to naturally speak louder and more clearly. Video demonstration of the latter was shown to the pt. She stated a preference for the portible amplifier, and a variety of device options, including prices and purchase sources, were provided to her in writing for consideration and discussion with her . Assessment Patient Response to Treatment Fair Rehab Potential Fair Impairments Identified Attention,Cognitive-Linguistic Skills,Dysarthria,Expressive Language,Oral Motor,Parkinson' s Disease,Reading Comprehension,Speech Intelligibility,Vocal Quality, Other Additional Impairments Identified Saliva management; Progressive Supranuclear Palsy Progress Towards Goals Slow Progress Assessment of Overall Progress Improving Assessment of Improvement Given the progressive nature of PSP and time since onset for this patient, suspect exercise may no longer be a productive treatment approach to increase or possible even maintain respiratory muscle strength necessary for producing adequat vocal loudness and cough response to meet the pt's functional needs. She was accepting of such information and agreeable to use of compensatory tools to amplify her voice to improve communication between her and her. Speech therapy may need to be reconsidered. Plan to discuss this more with the pt and spouse. DIE MOUNTER will participate in training the pt/spouse in use of voice amplifier as needed. Reviewed with Patient Goals,Progress Being Made,Home Exercise Program Patient/Caregiver Understanding Good Plan Amount of Therapy Recommended 4 Months Frequency of Treatment Once a Week Length of Session 45 Minutes Treatment Emphasis Next Session Discuss POC and future planning related to progressing PSP Therapeutic Contents Client Education,Cognitive- Linguistic Training,Expressive Language Training,Home Exercise Program,Information Processing,Oral Motor Training Provided Patient/Caregiver Instruction Home Exercise Program,Plan of Care,Questions/Concerns Therapy Recommendations Continue with Current Program
--- NOTE | 2021-05-31 16:32 | ST.OPTN ---
Visit Care Team Role Provider Type Helen Burroughs MD Family Provider Physician Primary Care Provider Address: [address] [place] [address], [id number] Attending Provider Referring Provider Address: Phone: Fax: [employer] Treatment Note [employer] Clinical Instructor Line Start: 01/03/21 16:53 Freq: Status: Active Protocol: Document 01/17/21 11:51 BUCK (Rec: 01/17/21 11:51 [email or web address] [email or web address]) Clinical Instructor Signature Clinical Instructor Clinical Instructor Yes [employer] Treatment Note Start: 11/30/20 16:59 Freq: Status: Active Protocol: Document 05/31/21 16:07 BUCK (Rec: 05/31/21 16:32 [email or web address] [email or web address]) Speech Pathology Treatment Note Session Time Visit Start Time 13:30 Visit Stop Time 14:15 Total Visit Minutes 45 Visit Information Visit Number 07/17 Plan of Care Dates 05/31/21 - 08/31/20 Insurance Information Medicare Setting Treatment Setting Outpatient Care Visit Type Note Type Progress Note Next Note Type Next Note Type Treatment Note General Information General Information The pt is a 75-yr-old female recently diagnosed with Progressive Supranuclear Palsy . She is familiar to this [employer] from previous therapy. The pt has a history of very frequent falls, often several in a week. On 11/24/20 she was seen at [facility] ED after a fall at home that resulted in scalp laceration and right C1 transverse process fracture. No hospitalization, surgery or neck brace was required. Pt was d/c'd home with instructions to take Tylenol for the pain. The pt denies changes in cognitive status from this and all other falls. Over course of treatment, the pt and her have expressed concern of increased coughing with oral intake. Clinical bedside swallow evaluation indicated mild oropharyngeal dysphagia secondary to decreased muscular strength and coordination related to PSP diagnosis. Subjective Observations/Patient Presentation Pt arrived on time accompanied by her who did not attend the session. He did report that the pt's voice continues to get quieter and that he is sure she will eventually lose her ability to communicate orally. He felt voice amplification device would be too difficulty for her to use, as she currently had difficulty using her cell phone and using headphones to listen to audio books. He expressed interest in AAC device and voice banking, having learned about it from members of the PD support group. He also stated she continues to have difficulty with self-feeding secondary to vision impairments and continues to cough on her saliva when sleeping, typically starting in the early hours of the morning. Chief Complaint(s) Speech,Language,Swallowing, Cognitive Patient Knowledge/Awareness of [employer] Role Good in Treatment Parent/Caretake Knowledge/Awareness of Good [employer] Role in Treatment Objective Short Term Goals 1. The pt will produce yes/no and left/right responses with 80% acc in structured tasks to improve accuracy and dependability of expressive language. 2. With collaboration from [employer] , the pt will establish external memory tools in her functional environment to increase awareness and recall of date and daily tasks. 3. Given short stories presented orally or visually ( i.e., film), the pt will answer questions related to plot with 80% accuracy to improve general comprehension and resume hobby for improved QOL. 4. The pt will perform oral motor exercises to improve saliva management and reduce drooling. 5. Caregiver/spouse education and training to be provided as needed. 6. The pt will follow safe swallow strategies to reduce risk of aspiration. 7. The pt will perform exercises to increase strength and coordination of swallow musculature to reduce risk of aspiration. 8. The pt will perform respiratory muscle strength training (RMST) exercises to improve breath support for voice and airway protection. Chcf Goals 1. With use of environmental tools as needed, the pt will recall date and upcoming daily tasks/appts in 80% of opportunities, as measured by therapeutic trials, pt/spouse report, and clinician judgment . 2. Given short stories presented orally or visually ( i.e., film), the pt will retell main ideas of plot with 80% accuracy to improve general comprehension and resume hobby for improved QOL. 3. The pt will demonstrate 80% reliability in yes/no and right/left expression to improve expressive language and reduce confusion in functional conversations. 4. The pt will tolerate least restrictive diet to meet her nutrition and hydration needs. 5. The pt will demonstrate breath support sufficient to make herself heard by others in communication and to produce protective cough response as needed. Treatment Activities Consulted with the pt RE her 's expressed concerns. She stated that the OT who works with her in her home does not address feeding issues. The pt was in agreement that an AAC device would be helpful and was interested in knowing more about it and about voice banking. Education about AAC and voice banking was provided orally and with demonstration ( [employer] Touch[employer] AAC device) and in writing (voice banking) for the pt to discuss with her . Voice banking information included a comparison of 5 banking programs recommended by the [employer], and the pt was informed of the likely process of completing an AAC device assessment to determine the most appropriate form of AAC, as well as general processes involved with voice banking, should the pt and spouse decide to pursue this. Regarding swallow safety, the pt reported she sleeps on a wedge pillow, most often on her side. She stated she has attempted to sleep in more of an upright position but is unable to. Assessment Patient Response to Treatment Fair Rehab Potential Fair Impairments Identified Attention,Cognitive-Linguistic Skills,Dysarthria,Expressive Language,Oral Motor,Parkinson' s Disease,Reading Comprehension,Speech Intelligibility,Vocal Quality, Other Additional Impairments Identified Saliva management; Progressive Supranuclear Palsy Progress Towards Goals Slow Progress Assessment of Overall Progress Improving Assessment of Improvement The pt and her appear to be in agreement regarding interest in initiating the process of setting up voice banking for AAC device use to assist the pt in communicating with others, both now and in the future over the progression of disease. The pt verbalized understanding of information provided today. She had a few basic questions that were answered and requires further education as well as assessment to determine what type of AAC device would be most appropriate for her. Regarding swallow safety during sleep, this situation is concerning and increases her risk of aspiration. Given the nature of PSP, exercise of swallow musculature to improve swallow function is not an effective treatment approach; therefore, management of symptoms via postural positioning is recommended. Will consult with the pt's PT and will appreciate any input from PCP and/or Neurologist for guidance in safety management. Reviewed with Patient Goals,Progress Being Made,Home Exercise Program Patient/Caregiver Understanding Good Plan Amount of Therapy Recommended 4 Months Frequency of Treatment Once a Week Length of Session 45 Minutes Treatment Emphasis Next Session Discuss POC and future planning related to progressing PSP; AAC Assessment Therapeutic Contents Client Education,Cognitive- Linguistic Training,Expressive Language Training,Home Exercise Program,Information Processing,Oral Motor Training Provided Patient/Caregiver Instruction Home Exercise Program,Plan of Care,Questions/Concerns Therapy Recommendations Continue with Current Program
--- NOTE | 2021-06-07 16:51 | ST.OPTN ---
Visit Care Team Role Provider Type Helen Burroughs MD Family Provider Physician Primary Care Provider Address: [address] [place] [address], [id number] Attending Provider Referring Provider Address: Phone: Fax: MUTUAL FUND SALES AGENT Treatment Note MUTUAL FUND SALES AGENT Clinical Instructor Line Start: 01/03/21 16:53 Freq: Status: Active Protocol: Document 01/17/21 11:51 BUCK (Rec: 01/17/21 11:51 BUCK [email or web address]) Clinical Instructor Signature Clinical Instructor Clinical Instructor Yes MUTUAL FUND SALES AGENT Treatment Note Start: 11/30/20 16:59 Freq: Status: Active Protocol: Document 06/07/21 16:01 BUCK (Rec: 06/07/21 16:51 BUCK [email or web address]) Speech Pathology Treatment Note Session Time Visit Start Time 13:30 Visit Stop Time 14:15 Total Visit Minutes 45 Visit Information Visit Number 08/17 Plan of Care Dates 05/31/21 - 08/31/20 Insurance Information Medicare Setting Treatment Setting Outpatient Care Visit Type Note Type Progress Note Next Note Type Next Note Type Treatment Note General Information General Information The pt is a 75-yr-old female recently diagnosed with Progressive Supranuclear Palsy . She is familiar to this MUTUAL FUND SALES AGENT from previous therapy. The pt has a history of very frequent falls, often several in a week. On 11/24/20 she was seen at [facility] ED after a fall at home that resulted in scalp laceration and right C1 transverse process fracture. No hospitalization, surgery or neck brace was required. Pt was d/c'd home with instructions to take Tylenol for the pain. The pt denies changes in cognitive status from this and all other falls. Over course of treatment, the pt and her have expressed concern of increased coughing with oral intake. Clinical bedside swallow evaluation indicated mild oropharyngeal dysphagia secondary to decreased muscular strength and coordination related to PSP diagnosis. Subjective Observations/Patient Presentation Pt arrived on time accompanied by her who did not attend the session. He reported the pt continues with coughing and choking on saliva at night when sleeping with upper body elevated with pillows, but also when sitting upright on the couch while watching TV. The couple has a bed that allows each side to elevate and change positions, but this feature is unavailable at the time d/t guard rails present as fall precaution. He stated the pt slides down both the bed and the cough, which prevents consistent positioning. Spouse also reported pt continues to have difficulty self-feeding and stated that home-based OT is working with her on this. He expressed concern that she is losing weight and stated intention to supplement nutrition with liquids such as Ensure. Chief Complaint(s) Speech,Language,Swallowing, Cognitive Patient Knowledge/Awareness of MUTUAL FUND SALES AGENT Role Good in Treatment Parent/Caretake Knowledge/Awareness of Good MUTUAL FUND SALES AGENT Role in Treatment Objective Short Term Goals 1. The pt will produce yes/no and left/right responses with 80% acc in structured tasks to improve accuracy and dependability of expressive language. 2. With collaboration from MUTUAL FUND SALES AGENT , the pt will establish external memory tools in her functional environment to increase awareness and recall of date and daily tasks. 3. Given short stories presented orally or visually ( i.e., film), the pt will answer questions related to plot with 80% accuracy to improve general comprehension and resume hobby for improved QOL. 4. The pt will perform oral motor exercises to improve saliva management and reduce drooling. 5. Caregiver/spouse education and training to be provided as needed. 6. The pt will follow safe swallow strategies to reduce risk of aspiration. 7. The pt will perform exercises to increase strength and coordination of swallow musculature to reduce risk of aspiration. 8. The pt will perform respiratory muscle strength training (RMST) exercises to improve breath support for voice and airway protection. Adult Education Professional Goals 1. With use of environmental tools as needed, the pt will recall date and upcoming daily tasks/appts in 80% of opportunities, as measured by therapeutic trials, pt/spouse report, and clinician judgment . 2. Given short stories presented orally or visually ( i.e., film), the pt will retell main ideas of plot with 80% accuracy to improve general comprehension and resume hobby for improved QOL. 3. The pt will demonstrate 80% reliability in yes/no and right/left expression to improve expressive language and reduce confusion in functional conversations. 4. The pt will tolerate least restrictive diet to meet her nutrition and hydration needs. 5. The pt will demonstrate breath support sufficient to make herself heard by others in communication and to produce protective cough response as needed. Treatment Activities Consulted briefly with both the pt and spouse at start of session RE spouse's concerns. Recommended home-based OT assess the pt's bed and sleeping arrangement to see if propping the pt with wedges or pillows might assist in maintaining an elevated torso to decrease choking on saliva. MUTUAL FUND SALES AGENT inquired about a recliner that may serve as the pt's bed, which did not appear to be a viable option at this time. MUTUAL FUND SALES AGENT reported that benefit of muscle strengthening exercises is limited in PSP, thereby limiting MUTUAL FUND SALES AGENT treatment options to postural changes and safe swallow strategies. They both verbalized understanding. Advised that if self-feeding is impacting the pt's nutrition, 1:1 feeding assistance may be needed. The pt's verbally acknowledged this without stating intention to start this practice. Assessed pt's swallow safety with trials of thin and nectar -thick liquids, pudding with cracker, and diced peaches. Assessed with and without use of chin tuck. The pt produced delayed mild throat clearing with most trials, least of all with NTL and with use of chin tuck. Instructed pt to swallow after every cough and throat clear. She did this when instructed but not independently. Trained pt in chin tuck, which she did with better independence but will need further training for carryover. She stated chin tuck and NTLs both were better than without and preferred drinking from straw than from cup. The pt tends to be very agreeable to MUTUAL FUND SALES AGENT recommendations; will continue to assess for true and ongoing benefit. MUTUAL FUND SALES AGENT fed the pt 2 trials, which she accepted without difficulty. The pt then self- fed, holding a small bowl of food in one hand and managed utensil in the other. With this setup, the pt accurately put spoon into bowl without overt difficulty. Scooping food onto spoon from bowl was more difficult and resulted in small spillage of food to the pt's lap. Recommended the pt work with home-based OT to assess if such setup would improve pt's ability to self- feed, particularly with edges on bowls that prevent spillage . All recommendations were put in writing to be communicated to the pt's and home- based OT. The pt was in agreement with all. Assessment Patient Response to Treatment Fair Rehab Potential Fair Impairments Identified Attention,Cognitive-Linguistic Skills,Dysarthria,Expressive Language,Oral Motor,Parkinson' s Disease,Reading Comprehension,Speech Intelligibility,Vocal Quality, Other Additional Impairments Identified Saliva management; Progressive Supranuclear Palsy Progress Towards Goals Slow Progress Assessment of Overall Progress Improving Assessment of Improvement The pt exhibited minimal delayed throat clearing with most trials, reduced with use of chin tuck and NTLs, both of which are recommended for safety. Information was provided in writing for collaboration with spouse and home-based OT. The pt continues to present with mild oropharyngeal dysphagia secondary to reduced muscular strength. Due to nature of PSP , swallow exercises are not recommended and dysphagia treatment will continue to target safety via posture, compensatory strategies, and texture modifications as needed. Reviewed with Patient Goals,Progress Being Made,Home Exercise Program Patient/Caregiver Understanding Good Plan Amount of Therapy Recommended 4 Months Frequency of Treatment Once a Week Length of Session 45 Minutes Treatment Emphasis Next Session Discuss POC and future planning related to progressing PSP; AAC Assessment Therapeutic Contents Client Education,Cognitive- Linguistic Training,Expressive Language Training,Home Exercise Program,Information Processing,Oral Motor Training Provided Patient/Caregiver Instruction Home Exercise Program,Plan of Care,Questions/Concerns Therapy Recommendations Continue with Current Program
--- NOTE | 2021-06-14 16:45 | ST.OPTN ---
Visit Care Team Role Provider Type Helen Burroughs MD Family Provider Physician Primary Care Provider Address: [address] [place] [address], [id number] Attending Provider Referring Provider Address: Phone: Fax: EXPLOSIVE ORDNANCE DISPOSAL MANAGER Treatment Note EXPLOSIVE ORDNANCE DISPOSAL MANAGER Clinical Instructor Line Start: 01/03/21 16:53 Freq: Status: Active Protocol: Document 01/17/21 11:51 BUCK (Rec: 01/17/21 11:51 BUCK [email or web address]) Clinical Instructor Signature Clinical Instructor Clinical Instructor Yes EXPLOSIVE ORDNANCE DISPOSAL MANAGER Treatment Note Start: 11/30/20 16:59 Freq: Status: Active Protocol: Document 06/14/21 18:19 BUCK (Rec: 06/14/21 18:22 BUCK [email or web address]) Speech Pathology Treatment Note Session Time Visit Start Time 09:30 Visit Stop Time 10:20 Total Visit Minutes 50 Visit Information Visit Number 09/14 Plan of Care Dates 05/31/21 - 08/31/20 Insurance Information Medicare Setting Treatment Setting Outpatient Care Visit Type Note Type Progress Note Next Note Type Next Note Type Treatment Note General Information General Information The pt is a 75-yr-old female recently diagnosed with Progressive Supranuclear Palsy . She is familiar to this EXPLOSIVE ORDNANCE DISPOSAL MANAGER from previous therapy. The pt has a history of very frequent falls, often several in a week. On 11/24/20 she was seen at [facility] ED after a fall at home that resulted in scalp laceration and right C1 transverse process fracture. No hospitalization, surgery or neck brace was required. Pt was d/c'd home with instructions to take Tylenol for the pain. The pt denies changes in cognitive status from this and all other falls. Over course of treatment, the pt and her have expressed concern of increased coughing with oral intake. Clinical bedside swallow evaluation indicated mild oropharyngeal dysphagia secondary to decreased muscular strength and coordination related to PSP diagnosis. Subjective Observations/Patient Presentation Pt arrived on time accompanied by her who did not attend the session. He reported the pt fell on Saturday when attempting to stand out of her wheelchair. She sustained no serious injuries. Chief Complaint(s) Speech,Language,Swallowing, Cognitive Patient Knowledge/Awareness of EXPLOSIVE ORDNANCE DISPOSAL MANAGER Role Good in Treatment Parent/Caretake Knowledge/Awareness of Good EXPLOSIVE ORDNANCE DISPOSAL MANAGER Role in Treatment Objective Short Term Goals 1. The pt will produce yes/no and left/right responses with 80% acc in structured tasks to improve accuracy and dependability of expressive language. 2. With collaboration from EXPLOSIVE ORDNANCE DISPOSAL MANAGER , the pt will establish external memory tools in her functional environment to increase awareness and recall of date and daily tasks. 3. Given short stories presented orally or visually ( i.e., film), the pt will answer questions related to plot with 80% accuracy to improve general comprehension and resume hobby for improved QOL. 4. The pt will perform oral motor exercises to improve saliva management and reduce drooling. 5. Caregiver/spouse education and training to be provided as needed. 6. The pt will follow safe swallow strategies to reduce risk of aspiration. 7. The pt will perform exercises to increase strength and coordination of swallow musculature to reduce risk of aspiration. 8. The pt will perform respiratory muscle strength training (RMST) exercises to improve breath support for voice and airway protection. Penitentiary Goals 1. With use of environmental tools as needed, the pt will recall date and upcoming daily tasks/appts in 80% of opportunities, as measured by therapeutic trials, pt/spouse report, and clinician judgment . 2. Given short stories presented orally or visually ( i.e., film), the pt will retell main ideas of plot with 80% accuracy to improve general comprehension and resume hobby for improved QOL. 3. The pt will demonstrate 80% reliability in yes/no and right/left expression to improve expressive language and reduce confusion in functional conversations. 4. The pt will tolerate least restrictive diet to meet her nutrition and hydration needs. 5. The pt will demonstrate breath support sufficient to make herself heard by others in communication and to produce protective cough response as needed. Treatment Activities Administered limited assessment of AAC via [employer] assessment tool for iPads. Pt demonstrated adequate ability to see images of different sizes and to tap appropriate icons. Delayed accuracy in choosing items that belong with others. Appeared to be d/t misunderstanding directions. When directions were clarified , accuracy improved. Consulted with the pt RE when she felt an AAC device would be helpful, and she stated, Now in order to improve communication with her . This EXPLOSIVE ORDNANCE DISPOSAL MANAGER agreed to contact [employer] technical support representative for guidance on AAC choice and voice banking. Will develop low-tech communication boards for use in the meantime to improve communication with pt and spouse. The pt identified statements she frequently says to her for use on communication board. Given examples of low-tech devices, the pt chose 5x9 cards organized by color and topic and attached with single ring binding. Will initiate development with pt's ongoing input. Assessment Patient Response to Treatment Fair Rehab Potential Fair Impairments Identified Attention,Cognitive-Linguistic Skills,Dysarthria,Expressive Language,Oral Motor,Parkinson' s Disease,Reading Comprehension,Speech Intelligibility,Vocal Quality, Other Additional Impairments Identified Saliva management; Progressive Supranuclear Palsy Progress Towards Goals Delayed Progress Assessment of Overall Progress Declining Assessment of Improvement The pt's overall condition continues to decline. Spouse is having increased difficulty hearing her speech, which complicates their relationship . It is appropriate to develop AAC low-tech device to assist at this time and to initiate arrangements for voice banking and electronic AAC device. Will appreciate assistance from [employer] for this assistance and guidance. Reviewed with Patient Goals,Progress Being Made,Home Exercise Program Patient/Caregiver Understanding Good Plan Amount of Therapy Recommended 4 Months Frequency of Treatment Once a Week Length of Session 45 Minutes Treatment Emphasis Next Session Discuss POC and future planning related to progressing PSP; AAC Assessment Therapeutic Contents Client Education,Cognitive- Linguistic Training,Expressive Language Training,Home Exercise Program,Information Processing,Oral Motor Training Provided Patient/Caregiver Instruction Home Exercise Program,Plan of Care,Questions/Concerns Therapy Recommendations Continue with Current Program
--- NOTE | 2021-06-27 13:11 | ST.OPTN ---
Visit Care Team Role Provider Type Helen Burroughs MD Family Provider Physician Primary Care Provider Address: [address] [place] [address], [id number] Attending Provider Referring Provider Address: Phone: Fax: PIPE LINE INSPECTOR Treatment Note PIPE LINE INSPECTOR Clinical Instructor Line Start: 01/03/21 16:53 Freq: Status: Active Protocol: Document 01/17/21 11:51 BUCK (Rec: 01/17/21 11:51 [email or web address] [email or web address]) Clinical Instructor Signature Clinical Instructor Clinical Instructor Yes PIPE LINE INSPECTOR Treatment Note Start: 11/30/20 16:59 Freq: Status: Active Protocol: Document 06/27/21 12:54 BUCK (Rec: 06/27/21 13:10 BUCK [email or web address]) Speech Pathology Treatment Note Session Time Visit Start Time 09:30 Visit Stop Time 10:20 Total Visit Minutes 50 Visit Information Visit Number 10/15 Plan of Care Dates 05/31/21 - 08/31/20 Insurance Information Medicare Setting Treatment Setting Outpatient Care Visit Type Note Type Progress Note Next Note Type Next Note Type Treatment Note General Information General Information The pt is a 75-yr-old female recently diagnosed with Progressive Supranuclear Palsy . She is familiar to this PIPE LINE INSPECTOR from previous therapy. The pt has a history of very frequent falls, often several in a week. On 11/24/20 she was seen at [facility] ED after a fall at home that resulted in scalp laceration and right C1 transverse process fracture. No hospitalization, surgery or neck brace was required. Pt was d/c'd home with instructions to take Tylenol for the pain. The pt denies changes in cognitive status from this and all other falls. Over course of treatment, the pt and her have expressed concern of increased coughing with oral intake. Clinical bedside swallow evaluation indicated mild oropharyngeal dysphagia secondary to decreased muscular strength and coordination related to PSP diagnosis. Subjective Others Present Family Observations/Patient Presentation Pt arrived on time accompanied by her who was present for discussion of POC for the first ~10 min of the session. He informed the pt is being assisted by [facility] ~4 hrs/day several days /wk. In discussion about AAC assistance, he noted that he often cannot hear the pt state his name, and both he and the pt were agreeable to use of a joaquin or other noisemaker to get his attention. He was also agreeable to use of low-tech AAC and consultation with a RE speech generating devices, acknowledging that AAC may become more necessary with progression of the disease. Observed the pt's vision remaining upward as her wheeled her to the treatment room, which is new for her. Throughout the session, the pt exhibited increased difficulty adjusting eyes to target objects, and reading accuracy was decreased . Chief Complaint(s) Speech,Language,Swallowing, Cognitive Patient Knowledge/Awareness of PIPE LINE INSPECTOR Role Good in Treatment Parent/Caretake Knowledge/Awareness of Good PIPE LINE INSPECTOR Role in Treatment Objective Short Term Goals 1. The pt will produce yes/no and left/right responses with 80% acc in structured tasks to improve accuracy and dependability of expressive language. 2. With collaboration from PIPE LINE INSPECTOR , the pt will establish external memory tools in her functional environment to increase awareness and recall of date and daily tasks. 3. Given short stories presented orally or visually ( i.e., film), the pt will answer questions related to plot with 80% accuracy to improve general comprehension and resume hobby for improved QOL. 4. The pt will perform oral motor exercises to improve saliva management and reduce drooling. 5. Caregiver/spouse education and training to be provided as needed. 6. The pt will follow safe swallow strategies to reduce risk of aspiration. 7. The pt will perform exercises to increase strength and coordination of swallow musculature to reduce risk of aspiration. 8. The pt will perform respiratory muscle strength training (RMST) exercises to improve breath support for voice and airway protection. Longterm Goals 1. With use of environmental tools as needed, the pt will recall date and upcoming daily tasks/appts in 80% of opportunities, as measured by therapeutic trials, pt/spouse report, and clinician judgment . 2. Given short stories presented orally or visually ( i.e., film), the pt will retell main ideas of plot with 80% accuracy to improve general comprehension and resume hobby for improved QOL. 3. The pt will demonstrate 80% reliability in yes/no and right/left expression to improve expressive language and reduce confusion in functional conversations. 4. The pt will tolerate least restrictive diet to meet her nutrition and hydration needs. 5. The pt will demonstrate breath support sufficient to make herself heard by others in communication and to produce protective cough response as needed. Treatment Activities Consulted with pt/spouse RE AAC as described above. Both were agreeable to continue assessment and development of these tools. Collaborated with the pt RE content to include on low-tech AAC cards. Sample cards were shown to her and modifications noted per her input. The pt exhibited increased slowing of eye movements, with need to raise paper to eye level vs eyes to paper level. She also made greater number of reading errors. Will increase font and minimize verbiage on communication cards to accommodate what appears to be diminishing vision. PIPE LINE INSPECTOR will revise cards and further develop them. Intend to have them ready for use by next session to begin training. Assessment Patient Response to Treatment Fair Rehab Potential Fair Impairments Identified Attention,Cognitive-Linguistic Skills,Dysarthria,Expressive Language,Oral Motor,Parkinson' s Disease,Reading Comprehension,Speech Intelligibility,Vocal Quality, Other Additional Impairments Identified Saliva management; Progressive Supranuclear Palsy Progress Towards Goals Delayed Progress Assessment of Overall Progress Declining Assessment of Improvement The pt's overall condition continues to decline. Her vision and occular movement appears to be worsening, and her speech and thought processing is decreasing in speed as well. All language was appropriate to the contexts of conversation but with greater delays between them. Comprehension appears to be WFL when additional processing is allowed and when the speaker communicates in moderately simple sentences at a slower than normal rate of speech. Pragmatics continue to be WNL and the pt continues to be very pleasant and agreeable, inquiring about others when given the opportunity. She commented that she enjoys being with Opal from [facility], and that she likes and trusts her. Reviewed with Patient Goals,Progress Being Made,Home Exercise Program Patient/Caregiver Understanding Good Plan Amount of Therapy Recommended 4 Months Frequency of Treatment Once a Week Length of Session 45 Minutes Treatment Emphasis Next Session Cont development & initiate training of low-tech AAC Therapeutic Contents Client Education,Cognitive- Linguistic Training,Expressive Language Training,Home Exercise Program,Information Processing,Oral Motor Training Provided Patient/Caregiver Instruction Home Exercise Program,Plan of Care,Questions/Concerns Therapy Recommendations Continue with Current Program
--- NOTE | 2021-07-12 15:51 | ST.OPTN ---
Visit Care Team Role Provider Type Helen Burroughs MD Family Provider Physician Primary Care Provider Address: [address] [place] [address], [id number] Attending Provider Referring Provider Address: Phone: Fax: ER NURSE Treatment Note ER NURSE Clinical Instructor Line Start: 01/03/21 16:53 Freq: Status: Active Protocol: Document 01/17/21 11:51 BUCK (Rec: 01/17/21 11:51 [email or web address] [email or web address]) Clinical Instructor Signature Clinical Instructor Clinical Instructor Yes ER NURSE Treatment Note Start: 11/30/20 16:59 Freq: Status: Active Protocol: Document 07/12/21 15:30 BUCK (Rec: 07/12/21 15:50 BUCK [email or web address]) Speech Pathology Treatment Note Session Time Visit Start Time 12:30 Visit Stop Time 13:20 Total Visit Minutes 50 Visit Information Visit Number 11/14 Plan of Care Dates 05/31/21 - 08/31/20 Insurance Information Medicare Setting Treatment Setting Outpatient Care Visit Type Note Type Progress Note Next Note Type Next Note Type Treatment Note General Information General Information The pt is a 75-yr-old female recently diagnosed with Progressive Supranuclear Palsy . She is familiar to this ER NURSE from previous therapy. The pt has a history of very frequent falls, often several in a week. On 11/24/[address] [facility] ED after a fall at home that resulted in scalp laceration and right C1 transverse process fracture. No hospitalization, surgery or neck brace was required. Pt was d/c'd home with instructions to take Tylenol for the pain. The pt denies changes in cognitive status from this and all other falls. Over course of treatment, the pt and her have expressed concern of increased coughing with oral intake. Clinical bedside swallow evaluation indicated mild oropharyngeal dysphagia secondary to decreased muscular strength and coordination related to PSP diagnosis. Subjective Others Present Family Observations/Patient Presentation Pt arrived on time accompanied by her who was present for the session and who reported increased concern over the pt's swallow safety, stating the now frequent need for use of Heimlich maneuver. He stated the pt was not responsive to Heimlich but did eventually produce strong enough cough to dislodge a piece of bratworst that was choking her during one incident. Spouse is now largely feeding the pt but, when the spouse stepped away momentarily, the pt had self- fed this particular piece that was not cut up, per spouse report, which was not disputed by the pt. He has continually reported the pt's impulsivity , and this was another example . The pt expressed concern that her was not performing Heimlich correctly. Chief Complaint(s) Speech,Language,Swallowing, Cognitive Patient Knowledge/Awareness of ER NURSE Role Good in Treatment Parent/Caretake Knowledge/Awareness of Good ER NURSE Role in Treatment Objective Short Term Goals 1. The pt will produce yes/no and left/right responses with 80% acc in structured tasks to improve accuracy and dependability of expressive language. 2. With collaboration from ER NURSE , the pt will establish external memory tools in her functional environment to increase awareness and recall of date and daily tasks. 3. Given short stories presented orally or visually ( i.e., film), the pt will answer questions related to plot with 80% accuracy to improve general comprehension and resume hobby for improved QOL. 4. The pt will perform oral motor exercises to improve saliva management and reduce drooling. 5. Caregiver/spouse education and training to be provided as needed. 6. The pt will follow safe swallow strategies to reduce risk of aspiration. 7. The pt will perform exercises to increase strength and coordination of swallow musculature to reduce risk of aspiration. 8. The pt will perform respiratory muscle strength training (RMST) exercises to improve breath support for voice and airway protection. Correction Goals 1. With use of environmental tools as needed, the pt will recall date and upcoming daily tasks/appts in 80% of opportunities, as measured by therapeutic trials, pt/spouse report, and clinician judgment . 2. Given short stories presented orally or visually ( i.e., film), the pt will retell main ideas of plot with 80% accuracy to improve general comprehension and resume hobby for improved QOL. 3. The pt will demonstrate 80% reliability in yes/no and right/left expression to improve expressive language and reduce confusion in functional conversations. 4. The pt will tolerate least restrictive diet to meet her nutrition and hydration needs. 5. The pt will demonstrate breath support sufficient to make herself heard by others in communication and to produce protective cough response as needed. Treatment Activities Dysphagia: Consulted with pt/ spouse RE concerns stated above. Retrained spouse in Heimlich maneuver to the best of this ER NURSE's ability, emphasizing the inward and upward thrust at the abdomen. Pt stated he had thrusted inward only at the level of the pt's gait belt. Recommended he receive further training from licensed trainers in the community. He acknowledged the recommendation without committing to doing so. Educated pt/spouse on risks of aspiration and choking, diet and liquid modifications, and assessment via MBSS, which is strongly recommended. Also recommended dysphagia mechanical diet texture ( description and guidelines provided in writing) and continued NTLs. Pt/spouse verbalized agreement and understanding. Speech/Language: ER NURSE provided the pt with laminated communication cards on topics discussed in previous sessions . Pt/spouse were educated on recommended use. Pt was able to read cards, confirming font was appropriate. Also informed this ER NURSE has telephone appt tmw with an AAC product support sales representative to discuss the pt's case for guidance on AAC development and training for future use, including voice banking, should the pt/spouse desire to move in that direction. They were in agreement with this and with the use of low-tech cards provided today. Requested the pt bring cards with her to next session for further assessment and training, modifications as needed. She agreed. Assessment Patient Response to Treatment Fair Rehab Potential Fair Impairments Identified Attention,Cognitive-Linguistic Skills,Dysarthria,Expressive Language,Oral Motor,Parkinson' s Disease,Reading Comprehension,Speech Intelligibility,Vocal Quality, Other Additional Impairments Identified Saliva management; Progressive Supranuclear Palsy Progress Towards Goals Delayed Progress Assessment of Overall Progress Declining Assessment of Improvement The pt's swallow safety is declining, with more frequent choking episodes and need for Heimlich maneuver. It appears the pt's spouse was not performing Heimlich exactly as recommended. He was receptive to clarification of technique , which will hopefully serve the pt better, should the need arise again. It is recommended he receive training from a licensed process trainer to ensure best confidence and safety for the pt. MBSS is also warranted at this time for further evaluation of the pt's swallow function and safety. Downgrade in diet is also recommended, as is close supervision and feeding assistance during meals to reduce negative outcomes from the pt's tendency toward impulsive behavior. Both pt/ spouse were agreeable to this. Orders for MBSS will be requested from pt's doctor. Reviewed with Patient Goals,Progress Being Made,Home Exercise Program Patient/Caregiver Understanding Good Plan Amount of Therapy Recommended 4 Months Frequency of Treatment Once a Week Length of Session 45 Minutes Treatment Emphasis Next Session Cont dev & training of low- tech AAC; MBSS when orders received; F/U RE diet Therapeutic Contents Client Education,Cognitive- Linguistic Training,Expressive Language Training,Home Exercise Program,Information Processing,Oral Motor Training Provided Patient/Caregiver Instruction Home Exercise Program,Plan of Care,Questions/Concerns Therapy Recommendations Continue with Current Program Other Referrals REQUEST ORDERS FOR MODIFIED BARIUM SWALLOW STUDY
--- NOTE | 2021-07-19 17:40 | ST.OPTN ---
Visit Care Team Role Provider Type Helen Burroughs MD Family Provider Physician Primary Care Provider Address: [address] [place] [address], [id number] Attending Provider Referring Provider Address: Phone: Fax: JACKSCREW MAN Treatment Note JACKSCREW MAN Clinical Instructor Line Start: 01/03/21 16:53 Freq: Status: Active Protocol: Document 01/17/21 11:51 BUCK (Rec: 01/17/21 11:51 BUCK [email or web address]) Clinical Instructor Signature Clinical Instructor Clinical Instructor Yes JACKSCREW MAN Treatment Note Start: 11/30/20 16:59 Freq: Status: Active Protocol: Document 07/19/21 17:32 BUCK (Rec: 07/19/21 17:55 BUCK [email or web address]) Speech Pathology Treatment Note Session Time Visit Start Time 15:30 Visit Stop Time 16:20 Total Visit Minutes 50 Visit Information Visit Number 12/15 Plan of Care Dates 05/31/21 - 08/31/20 Insurance Information Medicare Setting Treatment Setting Outpatient Care Visit Type Note Type Progress Note Next Note Type Next Note Type Treatment Note General Information General Information The pt is a 75-yr-old female recently diagnosed with Progressive Supranuclear Palsy . She is familiar to this JACKSCREW MAN from previous therapy. The pt has a history of very frequent falls, often several in a week. On 11/24/20 she was seen at [facility] ED after a fall at home that resulted in scalp laceration and right C1 transverse process fracture. No hospitalization, surgery or neck brace was required. Pt was d/c'd home with instructions to take Tylenol for the pain. The pt denies changes in cognitive status from this and all other falls. Over course of treatment, the pt and her have expressed concern of increased coughing with oral intake. Clinical bedside swallow evaluation indicated mild oropharyngeal dysphagia secondary to decreased muscular strength and coordination related to PSP diagnosis. Subjective Others Present Family Observations/Patient Presentation Pt arrived on time accompanied by her who was not present for the session. Pt/ spouse reported no falls and no significant choking episodes since last session. Chief Complaint(s) Speech,Language,Swallowing, Cognitive Patient Knowledge/Awareness of JACKSCREW MAN Role Good in Treatment Parent/Caretake Knowledge/Awareness of Good JACKSCREW MAN Role in Treatment Objective Short Term Goals 1. The pt will produce yes/no and left/right responses with 80% acc in structured tasks to improve accuracy and dependability of expressive language. 2. With collaboration from JACKSCREW MAN , the pt will establish external memory tools in her functional environment to increase awareness and recall of date and daily tasks. 3. Given short stories presented orally or visually ( i.e., film), the pt will answer questions related to plot with 80% accuracy to improve general comprehension and resume hobby for improved QOL. 4. The pt will perform oral motor exercises to improve saliva management and reduce drooling. 5. Caregiver/spouse education and training to be provided as needed. 6. The pt will follow safe swallow strategies to reduce risk of aspiration. 7. The pt will perform exercises to increase strength and coordination of swallow musculature to reduce risk of aspiration. 8. The pt will perform respiratory muscle strength training (RMST) exercises to improve breath support for voice and airway protection. Eligibility Clerk Goals 1. With use of environmental tools as needed, the pt will recall date and upcoming daily tasks/appts in 80% of opportunities, as measured by therapeutic trials, pt/spouse report, and clinician judgment . 2. Given short stories presented orally or visually ( i.e., film), the pt will retell main ideas of plot with 80% accuracy to improve general comprehension and resume hobby for improved QOL. 3. The pt will demonstrate 80% reliability in yes/no and right/left expression to improve expressive language and reduce confusion in functional conversations. 4. The pt will tolerate least restrictive diet to meet her nutrition and hydration needs. 5. The pt will demonstrate breath support sufficient to make herself heard by others in communication and to produce protective cough response as needed. Treatment Activities Continued training of low-tech AAC cards with ongoing assessment. Given communication cards that include written functional statements, the pt read statements on cards with 80% acc and pointed to statements presented orally by the JACKSCREW MAN with 73% acc. Reading errors appeared related more to attention and visual scanning errors than reading ability. For example, when asked to read a sentence the JACKSCREW MAN was pointing to, the pt sometimes read the statement above or below it (visual deficit). Other times, she changed the sentence to something related rather than the words on the page (attention). Assessment Patient Response to Treatment Fair Rehab Potential Fair Impairments Identified Attention,Cognitive-Linguistic Skills,Dysarthria,Expressive Language,Oral Motor,Parkinson' s Disease,Reading Comprehension,Speech Intelligibility,Vocal Quality, Other Additional Impairments Identified Saliva management; Progressive Supranuclear Palsy Progress Towards Goals Delayed Progress Assessment of Overall Progress Declining Assessment of Improvement Pt was stimulable to initial training of low-tech communication cards. Moderate errors were made in both reading and pointing to items on cards. Difficult to determine if this results from visual or attention deficits. Improvement was made with practice. Requires further training and ongoing assessment. Reviewed with Patient Goals,Progress Being Made,Home Exercise Program Patient/Caregiver Understanding Good Plan Amount of Therapy Recommended 4 Months Frequency of Treatment Once a Week Length of Session 45 Minutes Treatment Emphasis Next Session Cont dev & training of low- tech AAC; MBSS when orders received; F/U RE diet Therapeutic Contents Client Education,Cognitive- Linguistic Training,Expressive Language Training,Home Exercise Program,Information Processing,Oral Motor Training Provided Patient/Caregiver Instruction Home Exercise Program,Plan of Care,Questions/Concerns Therapy Recommendations Continue with Current Program Other Referrals REQUEST ORDERS FOR MODIFIED BARIUM SWALLOW STUDY
--- NOTE | 2021-07-24 14:22 | ST.OPTN ---
Visit Care Team Role Provider Type Helen Burroughs MD Family Provider Physician Primary Care Provider Address: [address] [place] [address], [id number] Attending Provider Referring Provider Address: Phone: Fax: EDGE TRIMMER Treatment Note EDGE TRIMMER Clinical Instructor Line Start: 01/03/21 16:53 Freq: Status: Active Protocol: Document 01/17/21 11:51 BUCK (Rec: 01/17/21 11:51 BUCK [email or web address]) Clinical Instructor Signature Clinical Instructor Clinical Instructor Yes EDGE TRIMMER Treatment Note Start: 11/30/20 16:59 Freq: Status: Active Protocol: Document 07/24/21 14:11 BUCK (Rec: 07/24/21 14:21 BUCK [email or web address]) Speech Pathology Treatment Note Session Time Visit Start Time 12:30 Visit Stop Time 13:15 Total Visit Minutes 45 Visit Information Visit Number 01/14 Plan of Care Dates 05/31/21 - 08/31/20 Insurance Information Medicare Setting Treatment Setting Outpatient Care Visit Type Note Type Progress Note Next Note Type Next Note Type Treatment Note General Information General Information The pt is a 75-yr-old female recently diagnosed with Progressive Supranuclear Palsy . She is familiar to this EDGE TRIMMER from previous therapy. The pt has a history of very frequent falls, often several in a week. On 11/24/20 she was seen at [facility] ED after a fall at home that resulted in scalp laceration and right C1 transverse process fracture. No hospitalization, surgery or neck brace was required. Pt was d/c'd home with instructions to take Tylenol for the pain. The pt denies changes in cognitive status from this and all other falls. Over course of treatment, the pt and her have expressed concern of increased coughing with oral intake. Clinical bedside swallow evaluation indicated mild oropharyngeal dysphagia secondary to decreased muscular strength and coordination related to PSP diagnosis. Subjective Others Present Family Observations/Patient Presentation Pt arrived on time accompanied by her who was not present for the session. Pt/ spouse reported no falls and no significant choking episodes since last session. Pt reported no need for use of communication cards this week . Expressed desire to continue training in use of cards in order to be prepared, should she need to use them. MBSS orders not yet received. Request was faxed again to PCP after the session. Chief Complaint(s) Speech,Language,Swallowing, Cognitive Patient Knowledge/Awareness of EDGE TRIMMER Role Good in Treatment Parent/Caretake Knowledge/Awareness of Good EDGE TRIMMER Role in Treatment Objective Short Term Goals 1. The pt will produce yes/no and left/right responses with 80% acc in structured tasks to improve accuracy and dependability of expressive language. 2. With collaboration from EDGE TRIMMER , the pt will establish external memory tools in her functional environment to increase awareness and recall of date and daily tasks. 3. Given short stories presented orally or visually ( i.e., film), the pt will answer questions related to plot with 80% accuracy to improve general comprehension and resume hobby for improved QOL. 4. The pt will perform oral motor exercises to improve saliva management and reduce drooling. 5. Caregiver/spouse education and training to be provided as needed. 6. The pt will follow safe swallow strategies to reduce risk of aspiration. 7. The pt will perform exercises to increase strength and coordination of swallow musculature to reduce risk of aspiration. 8. The pt will perform respiratory muscle strength training (RMST) exercises to improve breath support for voice and airway protection. Glass Cutter Goals 1. With use of environmental tools as needed, the pt will recall date and upcoming daily tasks/appts in 80% of opportunities, as measured by therapeutic trials, pt/spouse report, and clinician judgment . 2. Given short stories presented orally or visually ( i.e., film), the pt will retell main ideas of plot with 80% accuracy to improve general comprehension and resume hobby for improved QOL. 3. The pt will demonstrate 80% reliability in yes/no and right/left expression to improve expressive language and reduce confusion in functional conversations. 4. The pt will tolerate least restrictive diet to meet her nutrition and hydration needs. 5. The pt will demonstrate breath support sufficient to make herself heard by others in communication and to produce protective cough response as needed. Treatment Activities Continued training of low-tech AAC cards with ongoing assessment. Given communication cards that include written functional statements, the pt read statements on cards with 70% acc and pointed to statements presented orally by the EDGE TRIMMER with 80% acc. Again, reading errors appeared related more to attention and visual scanning errors than reading ability. For example, when asked to read a sentence the EDGE TRIMMER was pointing to, the pt sometimes read the statement above or below it (visual deficit). Other times, she changed the sentence to something related rather than the words on the page ( attention). Modified cards by highlighting rodriguez words in written phrases to improve pt's ability to quickly and accurately scan the pages. with words highlighted, reading improved to 93% acc and pointing remained at 80% but with increased speed, which may result also in part from repetition and practice. Assessment Patient Response to Treatment Fair Rehab Potential Fair Impairments Identified Attention,Cognitive-Linguistic Skills,Dysarthria,Expressive Language,Oral Motor,Parkinson' s Disease,Reading Comprehension,Speech Intelligibility,Vocal Quality, Other Additional Impairments Identified Saliva management; Progressive Supranuclear Palsy Progress Towards Goals Delayed Progress Assessment of Overall Progress Declining Assessment of Improvement Pt is demonstrating improvement in accuracy and speed of reading/finding text on communication cards, benefiting from practice and rodriguez words being highlighted. Reviewed with Patient Goals,Progress Being Made,Home Exercise Program Patient/Caregiver Understanding Good Plan Amount of Therapy Recommended 4 Months Frequency of Treatment Once a Week Length of Session 45 Minutes Treatment Emphasis Next Session Cont dev & training of low- tech AAC; MBSS when orders received; F/U RE diet Therapeutic Contents Client Education,Cognitive- Linguistic Training,Expressive Language Training,Home Exercise Program,Information Processing,Oral Motor Training Provided Patient/Caregiver Instruction Home Exercise Program,Plan of Care,Questions/Concerns Therapy Recommendations Continue with Current Program Other Referrals REQUEST ORDERS FOR MODIFIED BARIUM SWALLOW STUDY
--- NOTE | 2021-08-02 17:16 | ST.OPTN ---
Visit Care Team Role Provider Type Helen Burroughs MD Family Provider Physician Primary Care Provider Address: [address] [place] [address], [id number] Attending Provider Referring Provider Address: Phone: Fax: CUT OFF MACHINE HELPER Treatment Note CUT OFF MACHINE HELPER Clinical Instructor Line Start: 01/03/21 16:53 Freq: Status: Active Protocol: Document 01/17/21 11:51 BUCK (Rec: 01/17/21 11:51 [email or web address] [email or web address]) Clinical Instructor Signature Clinical Instructor Clinical Instructor Yes CUT OFF MACHINE HELPER Treatment Note Start: 11/30/20 16:59 Freq: Status: Active Protocol: Document 08/02/21 17:00 BUCK (Rec: 08/02/21 17:16 [email or web address] [email or web address]) Speech Pathology Treatment Note Session Time Visit Start Time 12:30 Visit Stop Time 13:15 Total Visit Minutes 45 Visit Information Visit Number 8 Plan of Care Dates 05/31/21 - 08/31/20 Insurance Information Medicare Setting Treatment Setting Outpatient Care Visit Type Note Type Progress Note Next Note Type Next Note Type Treatment Note General Information General Information The pt is a 75-yr-old female recently diagnosed with Progressive Supranuclear Palsy . She is familiar to this CUT OFF MACHINE HELPER from previous therapy. The pt has a history of very frequent falls, often several in a week. On 11/24/20 she was seen at [facility] ED after a fall at home that resulted in scalp laceration and right C1 transverse process fracture. No hospitalization, surgery or neck brace was required. Pt was d/c'd home with instructions to take Tylenol for the pain. The pt denies changes in cognitive status from this and all other falls. Over course of treatment, the pt and her have expressed concern of increased coughing with oral intake. Clinical bedside swallow evaluation indicated mild oropharyngeal dysphagia secondary to decreased muscular strength and coordination related to PSP diagnosis. Subjective Others Present Family Observations/Patient Presentation Pt arrived on time accompanied by her who was not present for the session. Pt/ spouse reported no falls and no choking episodes since last session. MBSS orders received; scheduled for Aug 13. Chief Complaint(s) Speech,Language,Swallowing, Cognitive Patient Knowledge/Awareness of CUT OFF MACHINE HELPER Role Good in Treatment Parent/Caretake Knowledge/Awareness of Good CUT OFF MACHINE HELPER Role in Treatment Objective Short Term Goals 1. The pt will produce yes/no and left/right responses with 80% acc in structured tasks to improve accuracy and dependability of expressive language. 2. With collaboration from CUT OFF MACHINE HELPER , the pt will establish external memory tools in her functional environment to increase awareness and recall of date and daily tasks. 3. Given short stories presented orally or visually ( i.e., film), the pt will answer questions related to plot with 80% accuracy to improve general comprehension and resume hobby for improved QOL. 4. The pt will perform oral motor exercises to improve saliva management and reduce drooling. 5. Caregiver/spouse education and training to be provided as needed. 6. The pt will follow safe swallow strategies to reduce risk of aspiration. 7. The pt will perform exercises to increase strength and coordination of swallow musculature to reduce risk of aspiration. 8. The pt will perform respiratory muscle strength training (RMST) exercises to improve breath support for voice and airway protection. Custodial Goals 1. With use of environmental tools as needed, the pt will recall date and upcoming daily tasks/appts in 80% of opportunities, as measured by therapeutic trials, pt/spouse report, and clinician judgment . 2. Given short stories presented orally or visually ( i.e., film), the pt will retell main ideas of plot with 80% accuracy to improve general comprehension and resume hobby for improved QOL. 3. The pt will demonstrate 80% reliability in yes/no and right/left expression to improve expressive language and reduce confusion in functional conversations. 4. The pt will tolerate least restrictive diet to meet her nutrition and hydration needs. 5. The pt will demonstrate breath support sufficient to make herself heard by others in communication and to produce protective cough response as needed. Treatment Activities CUT OFF MACHINE HELPER informed pt/spouse of consultation with a [employer] AAC device printing supplies sales representative. Pt/ spouse agreeable to CUT OFF MACHINE HELPER requesting a demo device for assessment with [employer] rep present to demonstrate and assist with assessment. CUT OFF MACHINE HELPER will begin this process. Continued assessment of pt's visual and reading skills necessary for AAC device, whether high- or low-tech, via large print text with left/ right margins highlighted. This was in response to the pt 's report of difficulty identifying margins and tracking written text. 26-pt font was used and margins colored. A line tracker (wide green book jonel) was used to isolate target lines, managed by CUT OFF MACHINE HELPER. The pt read text with 63% accuracy, often seemingly (and reportedly) guessing at text vs reading. When CUT OFF MACHINE HELPER isolated words, the pt was able to read them accurately, indicating a likely combination of visual, reading , and attention deficits. Assessment Patient Response to Treatment Fair Rehab Potential Fair Impairments Identified Attention,Cognitive-Linguistic Skills,Dysarthria,Expressive Language,Oral Motor,Parkinson' s Disease,Reading Comprehension,Speech Intelligibility,Vocal Quality, Other Additional Impairments Identified Saliva management; Progressive Supranuclear Palsy Progress Towards Goals Delayed Progress Assessment of Overall Progress Declining Assessment of Improvement The pt is safely tolerating dysphagia mechanical diet and thin liquids, per pt/spouse report, with improved accuracy of texture preparation and setup and feeding assistance as needed. The pt's ability to read written text is declining and appears to be increasingly impacted by attention and visual deficits. This will need to be taken into consideration in development of AAC devices. Reviewed with Patient Goals,Progress Being Made,Home Exercise Program Patient/Caregiver Understanding Good Plan Amount of Therapy Recommended 4 Months Frequency of Treatment Once a Week Length of Session 45 Minutes Treatment Emphasis Next Session Cont dev & training of low/ high-tech AAC; MBS on 08/13/21 Therapeutic Contents Client Education,Cognitive- Linguistic Training,Expressive Language Training,Home Exercise Program,Information Processing,Oral Motor Training Provided Patient/Caregiver Instruction Home Exercise Program,Plan of Care,Questions/Concerns Therapy Recommendations Continue with Current Program
--- NOTE | 2021-08-09 18:06 | ST.IPDYTX ---
Visit Care Team Role Provider Type Helen Burroughs MD Family Provider Physician Primary Care Provider Specialty: Internal Medicine Address: [address] [place] [address], [id number] Email: [email or web address] Attending Provider Referring Provider Specialty: Address: Phone: Fax: Email: [employer] Dysphagia Treatment [employer] Clinical Instructor Line Start: 01/03/21 16:53 Freq: Status: Active Protocol: Document 01/17/21 11:51 BUCK (Rec: 01/17/21 11:51 BUCK [email or web address]) Clinical Instructor Signature Clinical Instructor Clinical Instructor Yes [employer] Dysphagia Treatment Start: 03/01/21 17:41 Freq: Status: Active Protocol: Document 08/09/21 17:52 BUCK (Rec: 08/09/21 18:03 BUCK [email or web address]) Dysphagia Treatment Session Time Visit Start Time 12:30 Visit Stop Time 13:15 Total Visit Minutes 45 Visit Information Visit Number 9 Plan of Care Dates 05/31/21 - 08/31/20 Insurance Information Medicare Setting Assessment Location Outpatient Care Visit Type Note Type Treatment Note Next Note Type Next Note Type Progress Note Patient Information Subjective Observations The pt arrived on time accompanied by who was not present during session. Pt/spouse reported no new concerns. This [employer] has applied for a speech generating device on loan for pt evaluation with product introduction manager's help. Both pt and spouse were agreeable to this plan. Anticipating arrival of device within the next 2 wks. Treatment Liquids Trialed Thin Solids Trialed Puree,Dysphagia Mechanical, Mechanical Soft Administration Type Tea Spoon,Straw,Dependent Feeding Oral Strategies Upright at 90 degrees,Double Swallow,Controlled Bite/Sip Size Pharyngeal Strategies Sitting Upright (90 deg),Turn Head Left,Turn Head Right,Chin Tuck,Double Swallow,Effortful Swallow,Small Bites and Sips Treatment Activities Frequent throat clearing was noted prior to oral intake trials. The pt reported feeling that water or something is in my throat which may reflect buildup and/ or penetration of saliva. Assessed swallow with oral trials including pureed texture and thin liquids. The pt reported consistent feelings of pharyngeal residue , minimized somewhat with postural head changes, no one change better than the others. No reduction in throat clearing was noted; pt cleared throat after all trials. No coughing noted. Change in vocal resonance was noted x1; no wet vocal quality observed. Recommended pt perform double swallow with all sips/bites. Prompt was provided in writing for home carryover and spouse education. Pt was educated on procedure of next week's scheduled MBS which will include evaluation of impact of postural changes. The pt verbalized understanding and all questions were answered. Assessment Patient Response to Treatment Fair Rehab Potential Fair Assessment of Improvement The pt continues with s/sx of dysphagia, primarily pharyngeal and impacting saliva management, characterized by consistent throat clearing with and without oral trials. The pt has not exhibited clinical signs of aspiration (e.g., aspiration pna). She reported occasional increased ease of swallow with changes in head posture and double swallow, though these did not reduce throat clearing. Will appreciate MBS next week. Diet Recommendations Recommendations Continue Current Diet Liquids Order [place] Diet Order Dysphagia Mechanical Medication Recommendations As Tolerated Additional Dietary Needs Chopped Food,1:1 Supervision,1 :1 Assistance,Encourage to Self-Feed,Reminders to Use Strategies Aspiration Precautions Recommended Precautions Upright at 90 Degrees,Small Bites/Sips,Effortful Swallow, Double Swallow Treatment Plan Placement Recommendation after Discharge Home,Outpatient Therapy Therapy Recommendations 1. With caregiver assistance, the pt will follow safe swallow strategies to reduce risk of aspiration. 2. The pt will participate in Modified Barium Swallow Study to further assess swallow function/safety and guide POC. Dysphagia Goals 1. The pt will tolerate least restrictive diet to meet her nutrition and hydration needs.
--- NOTE | 2021-08-23 18:07 | ST.IPDYTX ---
Visit Care Team Role Provider Type Helen Burroughs MD Family Provider Physician Primary Care Provider Specialty: Internal Medicine Address: [address] [place] [address], [id number] Email: [email or web address] Attending Provider Referring Provider Specialty: Address: Phone: Fax: Email: BAKERY CHEF Dysphagia Treatment BAKERY CHEF Clinical Instructor Line Start: 01/03/21 16:53 Freq: Status: Active Protocol: Document 01/17/21 11:51 BUCK (Rec: 01/17/21 11:51 [email or web address] [email or web address]) Clinical Instructor Signature Clinical Instructor Clinical Instructor Yes BAKERY CHEF Dysphagia Treatment Start: 03/01/21 17:41 Freq: Status: Active Protocol: Document 08/23/21 17:05 BUCK (Rec: 08/23/21 17:18 BUCK [email or web address]) Dysphagia Treatment Session Time Visit Start Time 14:30 Visit Stop Time 15:20 Total Visit Minutes 50 Visit Information Visit Number 07/17 Plan of Care Dates 08/23/21 - 11/20/21 Insurance Information Medicare Setting Assessment Location Outpatient Care Visit Type Note Type Progress Note Next Note Type Next Note Type Treatment Note Patient Information Subjective Observations The pt arrived on time. She reported a significant coughing episode yesterday on a bite of pizza. She was able to self-resolve without assistance or Heimlich from . She reported no other new complaints. Pt completed MBS last week with findings of mild oropharyngeal dysphagia secondary to slow oromotor skills and premature bolus escape to pharynx during oral prep phase. Flash penetration x1 was observed. No tracheal aspiration. This BAKERY CHEF received a trial speech-generating device and training in it. Informed pt and spouse of its arrival and requested that spouse attend the next session for demonstration and decision making. He agreed. Treatment Liquids Trialed Thin Solids Trialed Puree,Dysphagia Mechanical Administration Type Tea Spoon,Straw,Self-Feeding Oral Strategies Upright at 90 degrees, Controlled Bite/Sip Size Pharyngeal Strategies Sitting Upright (90 deg),Chin Tuck,Small Bites and Sips Treatment Activities Educated pt on MBS findings orally and with video review with recommendation of chin tuck during oral phase to improve oral containment prior to swallow. Trained pt in use of this strategy with trials of thin liquids from straw, applesauce and soft cookie. With verbal prompts, the pt performed chin tuck. Frequent mild throat clearing was noted throughout the session, both before and during oral trials. Strong and extensive cough occurred x1 when liquid in the cup was minimal and a mixture of air and water was consumed through straw. The pt's spontaneous cough was much stronger than her volitional cough and was effective in at least partial clearance of the airway, although the potential that trace aspiration occurred is high. The pt recovered without further incident. BAKERY CHEF created visual aids to be placed where she eats at home to remind her to tuck her chin . Written instructions for caregivers was also provided to assist with verbal reminders as needed. Recommend pt continue with dysphagia mech soft texture. Thin liquids with chin tuck okay; NTLs also okay if preferred by pt. Communicated these recommendations to pt's spouse and requested he inform any additional caregivers of chin tuck strategy. He agreed. Assessment Patient Response to Treatment Fair Rehab Potential Fair Assessment of Improvement MBS findings indicated mild oropharyngeal dysphagia. Consistent premature spillage of bolus to vallecula prior to swallow increases the pt's risk of aspiration. She was responsive to training in use of chin tuck but will need reminders to use strategy. The pt did have a possible mild aspiration event on minimal thin liquid during today's session when air was present with liquid in straw. She recovered without further incident. The pt does present with frequent throat clearing with and without oral intake. This could be indicative of laryngeal penetration of saliva or could be a now habitual behavior. She did exhibit good airway closure during MBS, which significantly reduces risk of aspiration. Given the progressive nature of her disease, will continue to monitor and train in safe swallow strategies. Over the course of treatment, the pt has otherwise demonstrated gradual decline in cognition and visual ability. She is increasingly slow in her movements and speech, though continues to produce appropriate language and memory WFL. Occasional confusion is noted, often self -corrected. The pt's vocal loudness is mildly diminished, making oral communication difficult in noisy environments and even in quiet environments with her , who is hard of hearing. A speech-generating device has been obtained for a trial and assessment to determine if this would improve the pt's ability to express her wants, needs, and ideas, both now and with consideration of future decline in expressive speech and language abilities. If beneficial, training as soon as possible will be beneficial while the pt's cognitive status is at its highest possible level. Will introduce the device to the pt and her at next session for consideration. Diet Recommendations Recommendations Upgrade Liquid Order Liquids Order Thin Diet Order Dysphagia Mechanical Medication Recommendations Whole in Carrier,Crushed in Carrier Comments Continue NTLs if preferred by pt Additional Dietary Needs 1:1 Assistance,Encourage to Self-Feed Aspiration Precautions Recommended Precautions Upright at 90 Degrees,Small Bites/Sips,Chin Tuck Additional Precautions Setup and feeding assistance as needed. Treatment Plan Placement Recommendation after Discharge Home,Outpatient Therapy Appropriate for Continued Therapy Yes Therapy Recommendations 1. With caregiver assistance, the pt will follow safe swallow strategies to reduce risk of aspiration. 2. The pt will participate in Modified Barium Swallow Study to further assess swallow function/safety and guide POC. GOAL MET NEW GOAL: The pt will participate in assessment of speech-generating device(s) to improve ability to express her wants/needs/ideas and guide POC. Dysphagia Goals 1. The pt will tolerate least restrictive diet to meet her nutrition and hydration needs. 2. Using AAC devices as needed , the pt will demonstrate expressive, receptive and cognitive communication skills sufficient to express her wants/needs/ideas and participate in decisions related to her medical care and quality of life.
--- NOTE | 2021-09-06 17:17 | ST.OPTN ---
Visit Care Team Role Provider Type Helen Burroughs MD Family Provider Physician Primary Care Provider Address: [address] [place] [address], [id number] Attending Provider Referring Provider Address: Phone: Fax: FISHERMAN HELPER Treatment Note FISHERMAN HELPER Clinical Instructor Line Start: 01/03/21 16:53 Freq: Status: Active Protocol: Document 01/17/21 11:51 BUCK (Rec: 01/17/21 11:51 [email or web address] [email or web address]) Clinical Instructor Signature Clinical Instructor Clinical Instructor Yes FISHERMAN HELPER Treatment Note Start: 11/30/20 16:59 Freq: Status: Active Protocol: Document 09/06/21 16:25 BUCK (Rec: 09/06/21 17:17 BUCK [email or web address]) Speech Pathology Treatment Note Session Time Visit Start Time 14:30 Visit Stop Time 15:20 Total Visit Minutes 50 Visit Information Visit Number 08/17 Plan of Care Dates 08/23/21 - 11/20/21 Setting Treatment Setting Outpatient Care Visit Type Note Type Progress Note Next Note Type Next Note Type Treatment Note General Information General Information The pt is a 75-yr-old female recently diagnosed with Progressive Supranuclear Palsy . She is familiar to this FISHERMAN HELPER from previous therapy. The pt has a history of very frequent falls, often several in a week. On 11/24/20 she was seen at [facility] ED after a fall at home that resulted in scalp laceration and right C1 transverse process fracture. No hospitalization, surgery or neck brace was required. Pt was d/c'd home with instructions to take Tylenol for the pain. The pt denies changes in cognitive status from this and all other falls. Over course of treatment, the pt and her have expressed concern of increased coughing with oral intake. Clinical bedside swallow evaluation indicated mild oropharyngeal dysphagia secondary to decreased muscular strength and coordination related to PSP diagnosis. Subjective Others Present Family Observations/Patient Presentation The pt arrived on time from physical therapy. Her PT relayed a message from the pt' s that he would not be attending our session today, as requested, because he was up all night attending to the pt who frequently got out of bed unassisted and eventually fell into some electronic equipment. She was not injured but he was feeling tired and overwhelmed and not able to participate. This FISHERMAN HELPER spoke with him briefly at the end of the session when he picked up the pt. Chief Complaint(s) Speech,Language,Swallowing, Cognitive Patient Knowledge/Awareness of FISHERMAN HELPER Role Good in Treatment Parent/Caretake Knowledge/Awareness of Good FISHERMAN HELPER Role in Treatment Objective Short Term Goals 1. The pt will produce yes/no and left/right responses with 80% acc in structured tasks to improve accuracy and dependability of expressive language. 2. With collaboration from FISHERMAN HELPER , the pt will establish external memory tools in her functional environment to increase awareness and recall of date and daily tasks. 3. Given short stories presented orally or visually ( i.e., film), the pt will answer questions related to plot with 80% accuracy to improve general comprehension and resume hobby for improved QOL. 4. The pt will perform oral motor exercises to improve saliva management and reduce drooling. 5. Caregiver/spouse education and training to be provided as needed. 6. The pt will follow safe swallow strategies to reduce risk of aspiration. 7. The pt will perform exercises to increase strength and coordination of swallow musculature to reduce risk of aspiration. 8. The pt will perform respiratory muscle strength training (RMST) exercises to improve breath support for voice and airway protection. Longterm Goals 1. With use of environmental tools as needed, the pt will recall date and upcoming daily tasks/appts in 80% of opportunities, as measured by therapeutic trials, pt/spouse report, and clinician judgment . 2. Given short stories presented orally or visually ( i.e., film), the pt will retell main ideas of plot with 80% accuracy to improve general comprehension and resume hobby for improved QOL. 3. The pt will demonstrate 80% reliability in yes/no and right/left expression to improve expressive language and reduce confusion in functional conversations. 4. The pt will tolerate least restrictive diet to meet her nutrition and hydration needs. 5. The pt will demonstrate breath support sufficient to make herself heard by others in communication and to produce protective cough response as needed. Treatment Activities FISHERMAN HELPER obtained a large bear ( jingle) joaquin per pt's request to use as a signal to call for assistance because her is unable to hear her when she calls for him. Attempted to secure this to the pt's wheelchair but was unsuccessful. Instead, was able to attach it to her wrist , making her able to ring it by shaking her arm. The joaquin also rings when the pt moves her arm for other reasons; however, she established a louder and longer ringing to indicate she needs assistance. Introduced the pt to [employer] speech-generating device. After initial instruction and demonstration, the pt was able to read buttons (containing words and symbols) with 82% acc and touch target buttons with 60% acc. She navigated within and between pages with 57% acc, improving with practice and requiring v/v prompts but demonstrating distinct stimulability. Pages and buttons were modified to be simpler and larger, better enabling the pt to locate targets and reduce confusion. Demonstrated both joaquin and speech-generating device to the pt's at the end of the session. He expressed reluctance toward both but a willingness to trial the joaquin and learn more about the AAC device. In response to AAC device demonstration, he stated, I know when she needs to go to the bathroom and The Visiting [employer] person seems to hear her ok when she' s very close to her. I can't always hear her. Emphasized to spouse the role of this FISHERMAN HELPER to ensure the pt is able to communicate her wants and needs to a variety communication partners and the benefit of a speech- generating device and an alert system (e.g., joaquin) to assist her in overcoming the added challenge of his hearing loss. He expressed understanding the FISHERMAN HELPER's role and appreciation for assistance. FISHERMAN HELPER will coordinate with the device's lending company ( [employer]) to arrange further trial/ assessment. The pt/spouse are planning to travel by car to [place] for 2 wks, and FISHERMAN HELPER will be gone for one week at the end of September, which will delay further trials and training. Assessment Rehab Potential Fair Assessment of Improvement The pt was agreeable to both the joaquin to alert need for assistance and the speech- generating device. She effectively used the joaquin and was able to establish a distinct pattern of ringing to differentiate between meaningful and non-meaningful ringing of the joaquin. Her was able to hear the joaquin in an outside setting. The pt was stimulable to using the AAC device, which is adequately adaptable to meet her visual and cognitive needs . A concern is that the speaker is not very loud, and this may be a problem considering her 's hearing loss. Will continue to work with the providing company for further assessment and training as appropriate. As mentioned, the pt's spouse expressed reluctance toward both use of both objects but a willingess to explore each further. He verbalized understanding of FISHERMAN HELPER's role and the pt's need and right to express herself and communicate effectively with others despite impairments from her disease. Reviewed with Patient Goals,Progress Being Made,Home Exercise Program Patient/Caregiver Understanding Good Plan Amount of Therapy Recommended 4 Months Frequency of Treatment Once a Week Length of Session 45 Minutes Treatment Emphasis Next Session Cont dev & training of low/ high-tech AAC Therapeutic Contents Client Education,Cognitive- Linguistic Training,Expressive Language Training,Home Exercise Program,Information Processing,Oral Motor Training Provided Patient/Caregiver Instruction Home Exercise Program,Plan of Care,Questions/Concerns Therapy Recommendations Continue with Current Program
--- NOTE | 2021-09-27 13:43 | ST-OP ANOTE ---
Physical, Occupational & Speech Therapy At [facility] Speech Therapy Note Pt did not show for appt. Called and was immediately sent to . Left msg informing him of the pt's 1:30 Speech Therapy appt and 2:30 Physical Therapy appt. Requested call back to discuss situation with possibility of waving no-show fee, if appropriate.
--- NOTE | 2021-10-09 18:00 | ST.OPTN ---
Visit Care Team Role Provider Type Helen Burroughs MD Family Provider Physician Primary Care Provider Address: [address] [place] [address], [id number] Attending Provider Referring Provider Address: Phone: Fax: GUILLOTINE TRIMMER Treatment Note GUILLOTINE TRIMMER Clinical Instructor Line Start: 01/03/21 16:53 Freq: Status: Active Protocol: Document 01/17/21 11:51 BUCK (Rec: 01/17/21 11:51 BUCK [email or web address]) Clinical Instructor Signature Clinical Instructor Clinical Instructor Yes GUILLOTINE TRIMMER Treatment Note Start: 11/30/20 16:59 Freq: Status: Active Protocol: Document 10/09/21 17:25 BUCK (Rec: 10/09/21 17:59 BUCK [email or web address]) Speech Pathology Treatment Note Session Time Visit Start Time 14:30 Visit Stop Time 15:30 Total Visit Minutes 60 Visit Information Visit Number 09/14 Plan of Care Dates 08/23/21 - 11/20/21 Setting Treatment Setting Outpatient Care Visit Type Note Type Progress Note Next Note Type Next Note Type Treatment Note General Information Patient History Pt was seen for a Modified Barium Swallow Study as per her physician, Dr. Burroughs. Pt has been seen for dysphagia treatment by TAMMY Clay at [facility] with a clinical dysphagia evaluation completed on 08/09/21. The results of that evaluation noted that the pt frequently cleared her throat, even prior to oral intake trials. The pt reported feeling there is a sense of something...in my throat. She described the feeling as a fluid/water build up. Swallowing was assessed via oral trials including pureed texture and thin liquids. The pt reported consistent feelings of pharyngeal residue, minimized somewhat with postural head changes, no one change better than the others. No reduction in throat clearing was noted; pt cleared throat after all trials. No coughing or wet vocal quality were noted. MBSS was recommended. Subjective Others Present Family Observations/Patient Presentation The pt arrived on time accompanied by her who was present throughout the session and provided input RE communication challenges at home and speech generating device. The pt and spouse reported a successful trip to [place]. The pt socialized with friends, including being in the community shopping and eating meals out without significant problems. She did fall early this morning when she got out of bed around 3:00 AM apparently thinking she needed to get ready for her therapy appts. She bruised her forehead but the couple reported no changes in cognition or other indications of brain injury. A customer loyalty representative from [employer] was present as well, demonstrating and assisting with assessment of an iPad-based speech generating device. Chief Complaint(s) Speech,Language,Swallowing, Cognitive Patient Knowledge/Awareness of GUILLOTINE TRIMMER Role Good in Treatment Parent/Caretake Knowledge/Awareness of Good GUILLOTINE TRIMMER Role in Treatment Objective Short Term Goals 1. The pt will produce yes/no and left/right responses with 80% acc in structured tasks to improve accuracy and dependability of expressive language. 2. With collaboration from GUILLOTINE TRIMMER , the pt will establish external memory tools in her functional environment to increase awareness and recall of date and daily tasks. 3. Given short stories presented orally or visually ( i.e., film), the pt will answer questions related to plot with 80% accuracy to improve general comprehension and resume hobby for improved QOL. 4. The pt will perform oral motor exercises to improve saliva management and reduce drooling. 5. Caregiver/spouse education and training to be provided as needed. 6. The pt will follow safe swallow strategies to reduce risk of aspiration. 7. The pt will perform exercises to increase strength and coordination of swallow musculature to reduce risk of aspiration. 8. The pt will perform respiratory muscle strength training (RMST) exercises to improve breath support for voice and airway protection. Flask Maker Goals 1. With use of environmental tools as needed, the pt will recall date and upcoming daily tasks/appts in 80% of opportunities, as measured by therapeutic trials, pt/spouse report, and clinician judgment . 2. Given short stories presented orally or visually ( i.e., film), the pt will retell main ideas of plot with 80% accuracy to improve general comprehension and resume hobby for improved QOL. 3. The pt will demonstrate 80% reliability in yes/no and right/left expression to improve expressive language and reduce confusion in functional conversations. 4. The pt will tolerate least restrictive diet to meet her nutrition and hydration needs. 5. The pt will demonstrate breath support sufficient to make herself heard by others in communication and to produce protective cough response as needed. Treatment Activities Assessed pt's ability to visually identify and tap keys on AAC device. Pt read items with 75% acc, improved to 88% acc with modifications to reduce length/complexity of text. Pt tapped targeted buttons with 81% acc and demonstrated independent recall of an item x1 during the training/assessment process, indicating stimulability for learning. The pt exhibited difficulty seeing buttons on the lower row when the device was placed on the table. The device was elevated, and the pt was then able to see and access all buttons with finger tapping. Discussed mounting options, which will be needed to accommodate both the pt's physical space at home and ensure security of the device so it is not dropped, making it inaccessible to her. Discussed options for getting spouse's attention when he is in the other room, as well as ways to distinguish when the pt is talking to her vs the dog. Creation of a button saying spouse's name with increased volume was deemed appropriate by both the pt and . The couple both agreed that such a device may be effective in assisting their communication. As the pt is still able to speak effectively when spouse is close by and given the progressive nature of her disease, it was strongly recommended that the device be obtained as soon as possible for training while the pt is cognitively able to learn to increase familiarity and decrease demands later in her life. Pt and spouse agreed. GUILLOTINE TRIMMER and [employer] rep discussed further details involved in obtaining device and will proceed. Assessment Patient Response to Treatment Good Rehab Potential Fair Impairments Identified Cognitive-Linguistic Skills, Dysphagia,Speech Intelligibility Progress Towards Goals Slow Progress Assessment of Improvement The pt demonstrated good stimulability to learning and using AAC/speech-generating device. She was able to adequately read text, visually recognize images, and finger tap buttons. Her spouse expressed surprise at her ability and supported obtaining the device, which will be pursued. While the pt is still able to be understood by her when he is in very close proximity, AAC/speech generating device is strongly recommended to assist the pt's ability to get his attention and communicate her wants and needs, particularly those that are urgent, such as using the bathroom or if she is in pain or has a problem. Reviewed with Patient Goals,Progress Being Made,Home Exercise Program Patient/Caregiver Understanding Good Plan Amount of Therapy Recommended 4 Months Frequency of Treatment Once a Week Length of Session 45 Minutes Treatment Emphasis Next Session Cont dev & training of low/ high-tech AAC Therapeutic Contents Client Education,Cognitive- Linguistic Training,Expressive Language Training,Home Exercise Program,Information Processing,Oral Motor Training Provided Patient/Caregiver Instruction Home Exercise Program,Plan of Care,Questions/Concerns Therapy Recommendations Continue with Current Program
--- NOTE | 2021-10-18 17:08 | ST.OPTN ---
Visit Care Team Role Provider Type Helen Burroughs MD Family Provider Physician Primary Care Provider Address: [address] [place] [address], [id number] Attending Provider Referring Provider Address: Phone: Fax: EEG TECHNOLOGIST Treatment Note EEG TECHNOLOGIST Clinical Instructor Line Start: 01/03/21 16:53 Freq: Status: Active Protocol: Document 01/17/21 11:51 BUCK (Rec: 01/17/21 11:51 BUCK [email or web address]) Clinical Instructor Signature Clinical Instructor Clinical Instructor Yes EEG TECHNOLOGIST Treatment Note Start: 11/30/20 16:59 Freq: Status: Active Protocol: Document 10/18/21 17:54 BUCK (Rec: 10/18/21 17:57 BUCK [id number]) Speech Pathology Treatment Note Session Time Visit Start Time 14:30 Visit Stop Time 15:20 Total Visit Minutes 50 Visit Information Visit Number 09/14 Plan of Care Dates 08/23/21 - 11/20/21 Insurance Information Medicare Setting Treatment Setting Outpatient Care Visit Type Note Type Progress Note Next Note Type Next Note Type Re-Evaluation General Information Patient History The pt is a 75-yr-old female originally diagnosed with Parkinson's disease, 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 The pt has a history of very frequent falls, often several in a week. She and her deny changes in cognitive status from falls. She is now wheelchair bound to prevent further falls.The pt lives at home with her , who is hard of hearing and has difficulty communicating with the pt unless he is at her side. Over course of treatment, the pt and her have expressed concern of increased coughing with oral intake. MBS was administered on with findings of mild oral dysphagia and minimal to mild pharyngeal dysphagia, both secondary to reduced strength and coordination of musculature. The pt consumes a dysphagia mechanical diet with thin or nectar-thick liquids. Due to significant visual impairment, as well as PSP symptoms of weakness and slow movements, the pt requires feeding assistance. Subjective Others Present Family Observations/Patient Presentation Pt's informed that the pt was assessed by Hospice and qualifies for services. The couple are seeking more information before making a decision, including whether or not AAC device and in-home training will be covered by benefits. Chief Complaint(s) Speech,Language,Swallowing, Cognitive Patient Knowledge/Awareness of EEG TECHNOLOGIST Role Good in Treatment Parent/Caretake Knowledge/Awareness of Good EEG TECHNOLOGIST Role in Treatment Objective Short Term Goals 1. The pt will follow safe swallow strategies with prompting as needed to reduce risk of aspiration and meet nutrition and hydration needs. 2. The pt will demonstrate ability to use SGD with 75% accuracy in therapeutic trials to improve her ability to communicate her wants, needs, and ideas to functional communication partners. Penitentiary Goals 1. The pt will tolerate least restrictive diet to meet her nutrition and hydration needs. 2. The pt will demonstrate independent ability to gain her 's/CG's attention via an SGD to increase safety and improve quality of life. 3. With caregiver assistance as needed, the pt will demonstrate ability to communicate her wants, needs and ideas via an SGD. Treatment Activities Assessed pt's current oral motor speech and voice and screened cognitive communication skills for determination of pt's need for and ability to use a speech-generating device(SGD). Oral peripheral exam: Moderate weakness and reduced ROM. Slow movements and coordination. Pt has full dental implants in excellent condition. Soft palate elevated upon phonation, though phonation was weak. Unable to determine by visual inspection if palatopharyngeal contact was made. Diadochokinetic Tasks (Norms [ reps per sec]: 6.3, 5.9, 5.6, and 5.9 respectively): /p/: 2.3/sec /t/: 3.7/sec /k/: 3/sec /p-t-k/: 0.67/sec Speech rate in conversation: 90 WPM (Normal conversational rate:120-150 wpm according to [employer]) Vocal quality and breath support for voice: MPT: 6 sec at 68 dB loudness. Range = 3-6 sec Conversational loudness: 62.7 dB, increased to 69 dB with prompting. CAPE-V perceptual evaluation of voice: Overall Severity: 58%, Moderate-Severe Roughness: 7%, Mild Breathiness: 43%, Moderate Strain: 5%, Mild Pitch: 58%, Moderate Severe (monotone, limited range) Loudness: 62%, Moderate-Severe Cognitive Communication skills screened via SLUMS assessment: Total Score: 11/40 (20 or less is indicative of Dementia). Visual deficits clearly impacted visuospatial skills. In her clock drawing, the pt included numbers 1-12 in an unclosed circular formation with inconsistent spacing. She included 2 hands of differing lengths pointing in correct directions but originating next to the 10 and spaced 1cm apart from each other. She verbalized ability to see 3 shapes lined in a sequence, and when asked to place an X in the triangle, she placed an X 7cm above and 3cm to the left of the triangle. When shown 3 shapes and asked to point to the largest, she stated, The rectangle and pointed 3cm below the rectangle. Assessment Patient Response to Treatment Good Rehab Potential Fair Impairments Identified Cognitive-Linguistic Skills, Dysphagia,Speech Intelligibility Additional Impairments Identified Processing speeds; Vision Progress Towards Goals Delayed Progress Assessment of Overall Progress Declining Assessment of Improvement Over the course of treatment, the pt has exhibited decline in areas of vocal loudness, breath support for speech and airway protection, cognitive communication, and vision, and she is no longer responsive to muscular exercise. She frequently exhibits s/sx of oropharyngeal dysphagia, although MBS from 09/04/21 revealed mild oral dysphagia and minimal to mild pharyngeal dysphagia, both secondary to reduced strength and coordination of musculature. The pt has benefited from a dysphagia mechanical diet and NTLs. Reduced breath support further increases aspiration risk, as the pt is unable to elicit a strong cough for airway protection. Cognitive communication impairments are significantly impacted by visual deficits and slowed processing speeds. The latter also impact expressive and receptive communication skills. This slowed language processing and reduced vocal loudness secondary to impaired breath support have resulted in communication difficulties between the pt and her , who is hard of hearing. Most significantly, the pt is unable to get her 's attention if he is not at her side, which increases safety risks as well as caregiver burden. Ongoing swallow assessment is strongly recommended over the course of disease progression in order to determine the least restrictive diet the pt can safely tolerate and to guide her and her caregivers in diet texture and safe swallow strategy recommendations. Additionally, use of a Speech Generating Device (SGD) is highly recommended to assist the pt in communicating with her and other caregivers. A viable SGD, which includes alternatives for visual impairment, has been identified and pt/spouse training in its use has been initiated as part of the assessment of its potential effectiveness. At this time, the pt is able to adequately see and operate its basic functions. Due to the progressive nature of PSP, it is critical that training continue and use of the device be implemented as soon as possible so that the pt becomes familiar with it in order to decrease cognitive load later and to promote best outcomes (i.e., the pt's ability to continue to communicate with others) as her condition declines. Should the pt transfer to Hospice care, ongoing access to Speech Therapy in her home is critical to swallow safety, to the pt's ability to communicate over the course of disease progression, and to her quality of life. Reviewed with Patient Goals,Progress Being Made,Home Exercise Program Patient/Caregiver Understanding Good Plan Amount of Therapy Recommended 4 Months Frequency of Treatment Once a Week Length of Session 45 Minutes Treatment Emphasis Next Session Cont training of SGD Therapeutic Contents AAC,Client Education, Swallowing/Feeding Provided Patient/Caregiver Instruction Home Exercise Program,Plan of Care,Questions/Concerns Therapy Recommendations Continue with Current Program
--- NOTE | 2021-10-23 17:27 | ST.OPTN ---
Visit Care Team Role Provider Type Helen Burroughs MD Family Provider Physician Primary Care Provider Address: [address] [place] [address], [id number] Attending Provider Referring Provider Address: Phone: Fax: ELECTROLYSIS INVESTIGATOR Treatment Note ELECTROLYSIS INVESTIGATOR Clinical Instructor Line Start: 01/03/21 16:53 Freq: Status: Active Protocol: Document 01/17/21 11:51 BUCK (Rec: 01/17/21 11:51 BUCK [email or web address]) Clinical Instructor Signature Clinical Instructor Clinical Instructor Yes ELECTROLYSIS INVESTIGATOR Treatment Note Start: 11/30/20 16:59 Freq: Status: Active Protocol: Document 10/23/21 17:17 BUCK (Rec: 10/25/21 17:18 BUCK [id number]) Speech Pathology Treatment Note Session Time Visit Start Time 13:30 Visit Stop Time 13:45 Total Visit Minutes 15 Visit Information Visit Number 4 Plan of Care Dates 08/23/21 - 11/20/21 Insurance Information Medicare Setting Treatment Setting Outpatient Care Visit Type Note Type Progress Note Next Note Type Next Note Type Re-Evaluation General Information Patient History The pt is a 75-yr-old female originally diagnosed with Parkinson's disease, 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 The pt has a history of very frequent falls, often several in a week. She and her deny. changes in cognitive status from falls. She is now wheelchair bound to prevent further falls.The pt lives at home with her , who is hard of hearing and has difficulty communicating with the pt unless he is at her side. Over course of treatment, the pt and her have expressed concern of increased coughing with oral intake. MBS was administered on with findings of mild oral dysphagia and minimal to mild pharyngeal dysphagia, both secondary to reduced strength and coordination of musculature. The pt consumes a dysphagia mechanical diet with thin or nectar-thick liquids. Due to significant visual impairment, as well as PSP symptoms of weakness and slow movements, the pt requires feeding assistance. Subjective Others Present Family Observations/Patient Presentation The pt arrived on time accompanied by her who expressed concern that [facility] stated they would not cover expenses of the pt's custom fitted wheelchair, Speech Generating Device (SGD) , and Speech Therapy services needed for development of the SGD and training of its use with the pt/spouse/caregivers. The couple would also like to have access to Speech Therapy for swallow assessment and safety guidance as needed as the pt's disease progresses. Chief Complaint(s) Speech,Language,Swallowing, Cognitive Patient Knowledge/Awareness of ELECTROLYSIS INVESTIGATOR Role Good in Treatment Parent/Caretake Knowledge/Awareness of Good ELECTROLYSIS INVESTIGATOR Role in Treatment Objective Short Term Goals 1. The pt will follow safe swallow strategies with prompting as needed to reduce risk of aspiration and meet nutrition and hydration needs. 2. The pt will demonstrate ability to use SGD with 75% accuracy in therapeutic trials to improve her ability to communicate her wants, needs, and ideas to functional communication partners. Chcf Goals 1. The pt will tolerate least restrictive diet to meet her nutrition and hydration needs. 2. The pt will demonstrate independent ability to gain her 's/CG's attention via a SGD to increase safety and improve quality of life. 3. With caregiver assistance as needed, the pt will demonstrate ability to communicate her wants, needs and ideas via a SGD. Treatment Activities Consulted with the pt/spouse RE their concerns as stated above. ELECTROLYSIS INVESTIGATOR called Hospice and spoke with Madeleine about the couple's concerns and inquired if [facility] has resources for funding these equipment and services. Madeleine stated she would leave a message for her merchandise planning manager and request she call this ELECTROLYSIS INVESTIGATOR back. Communicated with Arnol Terrazas of [employer] and obtained recommended mounting system(s) for SGD and helm quote. Continued writing SGD application report for Medicare funding. Assessment Patient Response to Treatment Good Rehab Potential Fair Impairments Identified Cognitive-Linguistic Skills, Dysphagia,Speech Intelligibility Additional Impairments Identified Processing speeds; Vision Progress Towards Goals Delayed Progress Assessment of Overall Progress Declining Assessment of Improvement The pt continues to be in need of SGD and ongoing Speech Therapy services for development and training of the device. Also anticipate ongoing ST services PRN for swallow assessment/safety over progression of disease. The pt/spouse were very clear in their concerns related to Hospice care and supportive of ELECTROLYSIS INVESTIGATOR's continued efforts to research funding options. Reviewed with Patient Goals,Progress Being Made,Home Exercise Program Patient/Caregiver Understanding Good Plan Amount of Therapy Recommended 4 Months Frequency of Treatment Once a Week Length of Session 45 Minutes Treatment Emphasis Next Session Cont training of SGD Therapeutic Contents AAC,Client Education, Swallowing/Feeding Provided Patient/Caregiver Instruction Home Exercise Program,Plan of Care,Questions/Concerns Therapy Recommendations Continue with Current Program
--- NOTE | 2021-10-31 17:41 | ST.OPTN ---
Visit Care Team Role Provider Type Helen Burruoghs MD Family Provider Physician Primary Care Provider Address: [address] [place] [address], [id number] Attending Provider Referring Provider Address: Phone: Fax: CATERING CHEF Treatment Note CATERING CHEF Clinical Instructor Line Start: 01/03/21 16:53 Freq: Status: Active Protocol: Document 01/17/21 11:51 BUCK (Rec: 01/17/21 11:51 BUCK [email or web address]) Clinical Instructor Signature Clinical Instructor Clinical Instructor Yes CATERING CHEF Treatment Note Start: 11/30/20 16:59 Freq: Status: Active Protocol: Document 10/31/21 17:28 BUCK (Rec: 10/31/21 17:41 BUCK [id number]) Speech Pathology Treatment Note Session Time Visit Start Time 15:30 Visit Stop Time 16:10 Total Visit Minutes 40 Visit Information Visit Number 11/14 Plan of Care Dates 08/23/21 - 11/20/21 Insurance Information Medicare Setting Treatment Setting Outpatient Care Visit Type Note Type Progress Note Next Note Type Next Note Type Re-Evaluation General Information Patient History The pt is a 75-yr-old female originally diagnosed with Parkinson's disease, 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 The pt has a history of very frequent falls, often several in a week. She and her deny. changes in cognitive status from falls. She is now wheelchair bound to prevent further falls.The pt lives at home with her , who is hard of hearing and has difficulty communicating with the pt unless he is at her side. Over the course of treatment, the pt and her have expressed concern of increased coughing with oral intake. MBS was administered on with findings of mild oral dysphagia and minimal to mild pharyngeal dysphagia, both secondary to reduced strength and coordination of musculature. The pt consumes a dysphagia mechanical diet with thin or nectar-thick liquids. Due to significant visual impairment, as well as PSP symptoms of weakness and slow movements, the pt requires feeding assistance. The pt's voice is becoming increasingly quieter and speech and language processing is progressively slower. The pt and her have consulted with [facility] and may be transferring to their care, if the pt's wheelchair and Speech Therapy needs, including ongoing swallow evaluation as needed and funding of and training on a Speech Generating Device (SGD) , will be covered. Subjective Others Present Family Observations/Patient Presentation The pt arrived on time, accompanied by her , immediately following PT appt. The pt was observed to list to the right side of her wheelchair. This CATERING CHEF consulted with the pt's PT, Maribel Fernández, who expressed concern of the pt's positioning when eating meals. Since last visit, this CATERING CHEF received a message from Tari at [facility] stating that the company had obtained the cost of the pt's wheelchair, and she requested the cost of the SGD and an estimate of Speech Therapy costs for SGD development and pt/spouse training. This CATERING CHEF also reached out to [email or web address] and was informed by Zoey by that the organization does not have funding for SGDs, only the [facility] Quality [facility] Life fund that supports respite care. Finally, since last visit, [employer] loaned this CATERING CHEF and the pt an SGD that can be used to continue development and training while funding is sought. Chief Complaint(s) Speech,Language,Swallowing, Cognitive Patient Knowledge/Awareness of CATERING CHEF Role Good in Treatment Parent/Caretake Knowledge/Awareness of Good CATERING CHEF Role in Treatment Objective Short Term Goals 1. The pt will follow safe swallow strategies with prompting as needed to reduce risk of aspiration and meet nutrition and hydration needs. 2. The pt will demonstrate ability to use SGD with 75% accuracy in therapeutic trials to improve her ability to communicate her wants, needs, and ideas to functional communication partners. Jail Goals 1. The pt will tolerate least restrictive diet to meet her nutrition and hydration needs. 2. The pt will demonstrate independent ability to gain her 's/CG's attention via a SGD to increase safety and improve quality of life. 3. With caregiver assistance as needed, the pt will demonstrate ability to communicate her wants, needs and ideas via a SGD. Treatment Activities Consulted with the pt/spouse regarding the the pt's positioning at meals. Spouse informed the pt sits in her wheelchair at the table for 2 meals and in an office-type chair that does not have arm rests at an elevated counter for 1 meal, though he indicated they will likely abandon that placement and have all meals at the table d/ t the pt's decreased ability to sit upright unassisted. This CATERING CHEF was in agreement and conveyed this information to Ms Fernández via email. CATERING CHEF informed the couple of information received from [facility] and [facility] regarding potential funding and on recommended mounting devices from [employer]. The couple identified the floor mount they preferred. Agreed that this CATERING CHEF will continue to communicate with [facility] regarding funding. Finally, the loaned SmartBox SGD was shown to the couple, including buttons that were added to alert the pt's from a distance, including both a button that calls his name and an alert button that projects a loud alarm. Will continue to develop device and train pt/ spouse. Assessment Patient Response to Treatment Good Rehab Potential Fair Impairments Identified Cognitive communication, Swallow,Voice Progress Towards Goals Delayed Progress Assessment of Overall Progress Declining Assessment of Improvement The pt continues to be in need of SGD and ongoing Speech Therapy services for development and training of the device. [facility] has expressed a willingness to consider wheelchair, SGD, and PRN Speech Therapy services. This CATERING CHEF will continue to work with them to this end. The pt /spouse expressed a desire to transfer to [facility]osp[facility] if these funding needs can be met. Reviewed with Patient Goals,Progress Being Made,Home Exercise Program Patient/Caregiver Understanding Good Plan Amount of Therapy Recommended 4 Months Frequency of Treatment Once a Week Length of Session 45 Minutes Treatment Emphasis Next Session Cont training of SGD and seeking funding Therapeutic Contents AAC,Client Education, Swallowing/Feeding Provided Patient/Caregiver Instruction Home Exercise Program,Plan of Care,Questions/Concerns Therapy Recommendations Continue with Current Program
--- NOTE | 2021-11-07 17:27 | ST.OPTN ---
Visit Care Team Role Provider Type Helen Burroughs MD Family Provider Physician Primary Care Provider Address: [address] [place] [address], [id number] Attending Provider Referring Provider Address: Phone: Fax: AGRIBUSINESS PROFESSOR Treatment Note AGRIBUSINESS PROFESSOR Clinical Instructor Line Start: 01/03/21 16:53 Freq: Status: Active Protocol: Document 01/17/21 11:51 BUCK (Rec: 01/17/21 11:51 BUCK [email or web address]) Clinical Instructor Signature Clinical Instructor Clinical Instructor Yes AGRIBUSINESS PROFESSOR Treatment Note Start: 11/30/20 16:59 Freq: Status: Active Protocol: Document 11/07/21 17:23 BUCK (Rec: 11/07/21 17:27 BUCK [id number]) Speech Pathology Treatment Note Session Time Visit Start Time 14:30 Visit Stop Time 15:25 Total Visit Minutes 55 Visit Information Visit Number 12/15 Plan of Care Dates 08/23/21 - 11/20/21 Insurance Information Medicare Setting Treatment Setting Outpatient Care Visit Type Note Type Progress Note Next Note Type Next Note Type Re-Evaluation General Information Patient History The pt is a 75-yr-old female originally diagnosed with Parkinson's disease, 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 The pt has a history of very frequent falls, often several in a week. She and her deny. changes in cognitive status from falls. She is now wheelchair bound to prevent further falls.The pt lives at home with her , who is hard of hearing and has difficulty communicating with the pt unless he is at her side. Over the course of treatment, the pt and her have expressed concern of increased coughing with oral intake. MBS was administered on with findings of mild oral dysphagia and minimal to mild pharyngeal dysphagia, both secondary to reduced strength and coordination of musculature. The pt consumes a dysphagia mechanical diet with thin or nectar-thick liquids. Due to significant visual impairment, as well as PSP symptoms of weakness and slow movements, the pt requires feeding assistance. The pt's voice is becoming increasingly quieter and speech and language processing is progressively slower. The pt and her have consulted with [facility] and may be transferring to their care, if the pt's wheelchair and Speech Therapy needs, including ongoing swallow evaluation as needed and funding of and training on a Speech Generating Device (SGD) , will be covered. Subjective Others Present Family Observations/Patient Presentation The pt arrived on time, accompanied by her , who reported that they are changing caregiver agencies with hopes of increasing care from 3 to 5 days/wk. No new complaints. Chief Complaint(s) Speech,Language,Swallowing, Cognitive Patient Knowledge/Awareness of AGRIBUSINESS PROFESSOR Role Good in Treatment Parent/Caretake Knowledge/Awareness of Good AGRIBUSINESS PROFESSOR Role in Treatment Objective Short Term Goals 1. The pt will follow safe swallow strategies with prompting as needed to reduce risk of aspiration and meet nutrition and hydration needs. 2. The pt will demonstrate ability to use SGD with 75% accuracy in therapeutic trials to improve her ability to communicate her wants, needs, and ideas to functional communication partners. Concrete Craftsman Goals 1. The pt will tolerate least restrictive diet to meet her nutrition and hydration needs. 2. The pt will demonstrate independent ability to gain her 's/CG's attention via a SGD to increase safety and improve quality of life. 3. With caregiver assistance as needed, the pt will demonstrate ability to communicate her wants, needs and ideas via a SGD. Treatment Activities Continued development of AAC and training pt to its use. Assessment Patient Response to Treatment Good Rehab Potential Fair Impairments Identified Cognitive communication, Swallow,Voice Progress Towards Goals Delayed Progress Assessment of Overall Progress Declining Assessment of Improvement The pt was participatory in identifying content for AAC development and verbalized understanding of AAC page navigation. Training in its use was limited to turning the device on and accessing the home page, which the pt did with verbal prompts following demonstration. Ehup-nepa-daru assistance was needed for the pt to find and feel the on switch. Reviewed with Patient Goals,Progress Being Made,Home Exercise Program Patient/Caregiver Understanding Good Plan Amount of Therapy Recommended 4 Months Frequency of Treatment Once a Week Length of Session 45 Minutes Treatment Emphasis Next Session Cont training of SGD and seeking funding Therapeutic Contents AAC,Client Education, Swallowing/Feeding Provided Patient/Caregiver Instruction Home Exercise Program,Plan of Care,Questions/Concerns Therapy Recommendations Continue with Current Program
--- NOTE | 2021-11-14 18:02 | ST.OPTN ---
Visit Care Team Role Provider Type Helen Burroughs MD Family Provider Physician Primary Care Provider Address: [address] [place] [address], [id number] Attending Provider Referring Provider Address: Phone: Fax: INFANTRY OPERATIONS SPECIALIST Treatment Note INFANTRY OPERATIONS SPECIALIST Clinical Instructor Line Start: 01/03/21 16:53 Freq: Status: Active Protocol: Document 01/17/21 11:51 BUCK (Rec: 01/17/21 11:51 BUCK [id number]) Clinical Instructor Signature Clinical Instructor Clinical Instructor Yes INFANTRY OPERATIONS SPECIALIST Treatment Note Start: 11/30/20 16:59 Freq: Status: Active Protocol: Document 11/14/21 17:47 BUCK (Rec: 11/14/21 18:02 BUCK [id number]) Speech Pathology Treatment Note Session Time Visit Start Time 14:30 Visit Stop Time 15:20 Total Visit Minutes 50 Visit Information Visit Number 01/14 Plan of Care Dates 08/23/21 - 11/20/21 Insurance Information Medicare Setting Treatment Setting Outpatient Care Visit Type Note Type Progress Note Next Note Type Next Note Type Re-Evaluation General Information Patient History The pt is a 75-yr-old female originally diagnosed with Parkinson's disease, 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 The pt has a history of very frequent falls, often several in a week. She and her deny. changes in cognitive status from falls. She is now wheelchair bound to prevent further falls.The pt lives at home with her , who is hard of hearing and has difficulty communicating with the pt unless he is at her side. Over the course of treatment, the pt and her have expressed concern of increased coughing with oral intake. MBS was administered on with findings of mild oral dysphagia and minimal to mild pharyngeal dysphagia, both secondary to reduced strength and coordination of musculature. The pt consumes a dysphagia mechanical diet with thin or nectar-thick liquids. Due to significant visual impairment, as well as PSP symptoms of weakness and slow movements, the pt requires feeding assistance. The pt's voice is becoming increasingly quieter and speech and language processing is progressively slower. The pt and her have consulted with [facility] and may be transferring to their care, if the pt's wheelchair and Speech Therapy needs, including ongoing swallow evaluation as needed and funding of and training on a Speech Generating Device (SGD) , will be covered. Subjective Others Present Family Observations/Patient Presentation The pt arrived on time, accompanied by her , who was present for part of the session. Since last session, this INFANTRY OPERATIONS SPECIALIST spoke with Tari from [facility] and provided the cost of the SmartBox SGD and abisai, as well as estimates of Speech Therapy sessions anticipated for training. Tari did not think [facility] would pay the total amount, but agreed to present it to the Board and get back to INFANTRY OPERATIONS SPECIALIST and the pt/ spouse with their response. Chief Complaint(s) Speech,Language,Swallowing, Cognitive Patient Knowledge/Awareness of INFANTRY OPERATIONS SPECIALIST Role Good in Treatment Parent/Caretake Knowledge/Awareness of Good INFANTRY OPERATIONS SPECIALIST Role in Treatment Objective Short Term Goals 1. The pt will follow safe swallow strategies with prompting as needed to reduce risk of aspiration and meet nutrition and hydration needs. 2. The pt will demonstrate ability to use SGD with 75% accuracy in therapeutic trials to improve her ability to communicate her wants, needs, and ideas to functional communication partners. Halfway Goals 1. The pt will tolerate least restrictive diet to meet her nutrition and hydration needs. 2. The pt will demonstrate independent ability to gain her 's/CG's attention via a SGD to increase safety and improve quality of life. 3. With caregiver assistance as needed, the pt will demonstrate ability to communicate her wants, needs and ideas via a SGD. Treatment Activities Infomed pt/spouse of conversation with Tari from [facility]. The couple agreed that they would like to pursue seeking insurance funding for device, as they did not anticipate funding from [facility] and are unable to pay the cost themselves. INFANTRY OPERATIONS SPECIALIST agreed to complete the application and continue outpatient services. Continued development of AAC and training pt to its use. The pt awoke the device and opened the iza with 75% and 54 % acc, respectively, with mod verbal prompts. She demonstrated good understanding of what to do but did not always apply necessary pressure to meet the device's sensitivity. She read button titles on the home page with 83% acc as the INFANTRY OPERATIONS SPECIALIST pointed to the words. In response to Tell me that you want... prompts, she tapped target buttons with 80% acc on the So Something page. On the home page, she tapped the Wilber and Alarm buttons with 84% accuracy, also turning the alarm off with 95% acc. Frequently, the pt dragged her finger down the screen after tapping a button, which prompted other SGD responses and/or led the pt to a different page. She was responsive to prompts to tap the center of buttons and remove her finger completely, as well as following directions to navigate back to previous pages. This needs further training. Assessment Patient Response to Treatment Good Rehab Potential Fair Impairments Identified Cognitive communication, Swallow,Voice Progress Towards Goals Delayed Progress Assessment of Overall Progress Declining Assessment of Improvement The pt demonstrated good stimulability to learning the home and activities pages of the device. Picture icons were helpful in locating target buttons, as written text is smaller and the pt's reading accuracy was poorer. The greatest number of errors resulted from unintentional tapping of the screen; however , the pt was responsive to prompts to lift her finger completely after tapping, though this requires further practice for independent management. Reviewed with Patient Goals,Progress Being Made,Home Exercise Program Patient/Caregiver Understanding Good Plan Amount of Therapy Recommended 4 Months Frequency of Treatment Once a Week Length of Session 45 Minutes Treatment Emphasis Next Session Cont training of SGD and seeking funding Therapeutic Contents AAC,Client Education, Swallowing/Feeding Provided Patient/Caregiver Instruction Home Exercise Program,Plan of Care,Questions/Concerns Therapy Recommendations Continue with Current Program
--- NOTE | 2021-11-21 16:40 | ST.OPTN ---
Visit Care Team Role Provider Type Helen Burroughs MD Family Provider Physician Primary Care Provider Address: [address] [place] [address], [phone] Attending Provider Referring Provider Address: Phone: Fax: GLOVE CUFFER Treatment Note GLOVE CUFFER Clinical Instructor Line Start: 01/03/21 16:53 Freq: Status: Active Protocol: Document 01/17/21 11:51 BUCK (Rec: 01/17/21 11:51 BUCK [email or web address]) Clinical Instructor Signature Clinical Instructor Clinical Instructor Yes GLOVE CUFFER Treatment Note Start: 11/30/20 16:59 Freq: Status: Active Protocol: Document 11/21/21 18:22 BUCK (Rec: 11/21/21 18:24 BUCK [id number]) Speech Pathology Treatment Note Session Time Visit Start Time 15:30 Visit Stop Time 16:15 Total Visit Minutes 45 Visit Information Visit Number 07/17 Plan of Care Dates 08/23/21 - 11/20/21 Insurance Information Medicare Setting Treatment Setting Outpatient Care Visit Type Note Type Treatment Note Next Note Type Next Note Type Treatment Note General Information Patient History The pt is a 75-yr-old female originally diagnosed with Parkinson's disease, 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 The pt has a history of very frequent falls, often several in a week. She and her deny. changes in cognitive status from falls. She is now wheelchair bound to prevent further falls.The pt lives at home with her , who is hard of hearing and has difficulty communicating with the pt unless he is at her side. Over the course of treatment, the pt and her have expressed concern of increased coughing with oral intake. MBS was administered on with findings of mild oral dysphagia and minimal to mild pharyngeal dysphagia, both secondary to reduced strength and coordination of musculature. The pt consumes a dysphagia mechanical diet with thin or nectar-thick liquids. Due to significant visual impairment, as well as PSP symptoms of weakness and slow movements, the pt requires feeding assistance. The pt's voice is becoming increasingly quieter and speech and language processing is progressively slower. The pt and her have consulted with [facility] and may be transferring to their care, if the pt's wheelchair and Speech Therapy needs, including ongoing swallow evaluation as needed and funding of and training on a Speech Generating Device (SGD) , will be covered. Subjective Others Present Family,Additional Therapist Observations/Patient Presentation The pt arrived on time Chief Complaint(s) Speech,Language,Swallowing, Cognitive Patient Knowledge/Awareness of GLOVE CUFFER Role Good in Treatment Parent/Caretake Knowledge/Awareness of Good GLOVE CUFFER Role in Treatment Objective Short Term Goals 1. The pt will follow safe swallow strategies with prompting as needed to reduce risk of aspiration and meet nutrition and hydration needs. 2. The pt will demonstrate ability to use SGD with 75% accuracy in therapeutic trials to improve her ability to communicate her wants, needs, and ideas to functional communication partners. Intermediate Goals 1. The pt will tolerate least restrictive diet to meet her nutrition and hydration needs. 2. The pt will demonstrate independent ability to gain her 's/CG's attention via a SGD to increase safety and improve quality of life. 3. With caregiver assistance as needed, the pt will demonstrate ability to communicate her wants, needs and ideas via a SGD. Treatment Activities GLOVE CUFFER showed the pt modifications that had been made to the device. Additional modifications were made based on the pt's feedback. The pt' s voice was recorded and attached to a buttong aimed to gain her 's attention. The pt produced loud voice adequate for recording and able to be increased in loudness by the device's volume. Continued training of SGD. Device Navigation: Without instruction, the pt independently tapped the device to awaken it and scrolled upward to the iza. After initial instruction, the pt navigated back to previous pages via the Back and Home buttons with 85% acc. Reading Buttons: With the device resting on the table in from of the pt, she initially exhibited difficulty reading buttons at the bottom of the screen. When the device was elevated, she was able to see the entire screen and read buttons on various pages with 86% acc as GLOVE CUFFER pointed to buttons. When errors were identified by GLOVE CUFFER, the pt corrected them. Tapping target buttons: With verbal prompts such as How would you tell me you wanted _ _?, the pt tapped appropriate buttons with 91% acc. Reduced dragging of her finger on the screen was seen today, resulting in increased accuracy of communication. Assessment Patient Response to Treatment Good Rehab Potential Fair Impairments Identified Cognitive communication, Swallow,Voice Progress Towards Goals Delayed Progress Assessment of Overall Progress Declining Assessment of Improvement The pt is making good progress in becoming familiar with and using SGD in structured tasks . She has demonstrated recall of basic functions and is improving her ability to tap a button without unintended tapping of non-target items. Reviewed with Patient Goals,Progress Being Made,Home Exercise Program Patient/Caregiver Understanding Good Plan Amount of Therapy Recommended 4 Months Frequency of Treatment Once a Week Length of Session 45 Minutes Treatment Emphasis Next Session Cont training of SGD and seeking funding Therapeutic Contents AAC,Client Education, Swallowing/Feeding Provided Patient/Caregiver Instruction Home Exercise Program,Plan of Care,Questions/Concerns Therapy Recommendations Continue with Current Program
--- NOTE | 2021-11-28 17:11 | ST.OPTN ---
Addendum entered and electronically signed by Marilyn Curry 11/28/21 17:18: Visit number 2 out of 10 authorized visits. Original Note: Visit Care Team Role Provider Type Helen Burroughs MD Family Provider Physician Primary Care Provider Address: [address] [place] [address], [id number] Attending Provider Referring Provider Address: Phone: Fax: PILLAR WORKER Treatment Note PILLAR WORKER Clinical Instructor Line Start: 01/03/21 16:53 Freq: Status: Active Protocol: Document 11/28/21 17:08 BUCK (Rec: 11/28/21 17:09 BUCK [id number]) Clinical Instructor Signature Clinical Instructor Clinical Instructor Yes PILLAR WORKER Treatment Note Start: 11/30/20 16:59 Freq: Status: Active Protocol: Document 11/28/21 13:36 EK (Rec: 11/28/21 13:44 EK [id number]) Speech Pathology Treatment Note Session Time Visit Start Time 12:30 Visit Stop Time 13:15 Total Visit Minutes 45 Visit Information Plan of Care Dates 11/21/21 - 02/16/22 Insurance Information Medicare Setting Treatment Setting Outpatient Care Visit Type Note Type Treatment Note Next Note Type Next Note Type Treatment Note General Information Patient History The pt is a 75-yr-old female originally diagnosed with Parkinson's disease, 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 The pt has a history of very frequent falls, often several in a week. She and her deny. changes in cognitive status from falls. She is now wheelchair bound to prevent further falls.The pt lives at home with her , who is hard of hearing and has difficulty communicating with the pt unless he is at her side. Over the course of treatment, the pt and her have expressed concern of increased coughing with oral intake. MBS was administered on with findings of mild oral dysphagia and minimal to mild pharyngeal dysphagia, both secondary to reduced strength and coordination of musculature. The pt consumes a dysphagia mechanical diet with thin or nectar-thick liquids. Due to significant visual impairment, as well as PSP symptoms of weakness and slow movements, the pt requires feeding assistance. The pt's voice is becoming increasingly quieter and speech and language processing is progressively slower. The pt and her have consulted with [facility] and may be transferring to their care, if the pt's wheelchair and Speech Therapy needs, including ongoing swallow evaluation as needed and funding of and training on a Speech Generating Device (SGD) , will be covered. Subjective Others Present Additional Therapist Observations/Patient Presentation The pt arrived on time. Pt appeared to be more fatigued than compared to previous session. This was evidenced by slower than usual response time, dropping eyelids, and listing to the right. Session conducted and note written by student PILLAR WORKER Marilyn Curry. Chief Complaint(s) Speech,Language,Swallowing, Cognitive Patient Knowledge/Awareness of PILLAR WORKER Role Good in Treatment Parent/Caretake Knowledge/Awareness of Good PILLAR WORKER Role in Treatment Objective Short Term Goals 1. The pt will follow safe swallow strategies with prompting as needed to reduce risk of aspiration and meet nutrition and hydration needs. 2. The pt will demonstrate ability to use SGD with 75% accuracy in therapeutic trials to improve her ability to communicate her wants, needs, and ideas to functional communication partners. Square Cutter Goals 1. The pt will tolerate least restrictive diet to meet her nutrition and hydration needs. 2. The pt will demonstrate independent ability to gain her 's/CG's attention via a SGD to increase safety and improve quality of life. 3. With caregiver assistance as needed, the pt will demonstrate ability to communicate her wants, needs and ideas via a SGD. Treatment Activities Student PILLAR WORKER demonstrated to the pt all modifications made to the device since last session; pt agreed with all changes. Targeted navigating through the various folders of the device. Pt expressed interest in practicing all aspects of the device and stated that she is looking forward to taking the device home. Device Navigation: Pt independently woke the device after the screen turned dark. Pt navigated between home screen and back button with an average of 90% accuracy. Reading buttons: At the beginning of the session, pt required mod visual cueing in order to attend to buttons on the far left side of the screen. As the session progressed, cues were faded to min verbal cueing. Pt is most successful when the device is elevated. Tapping target buttons: Pt's accuracy tapping buttons was primarily targeted with the personal care folder which has the most buttons of all the folders on the device. After initial instruction and with verbal prompts, the pt tapped appropriate buttons with 100% acc. Assessment Patient Response to Treatment Good Rehab Potential Fair Impairments Identified Cognitive communication, Swallow,Voice Progress Towards Goals Delayed Progress Assessment of Overall Progress Declining Assessment of Improvement The pt demonstrated good carryover today by independently awakening the device and by correctly utilizing the alarm button and the button used to call her 's name. Pt is becoming more familiar with the device and improving her overall accuracy with her button selection. She appears to be very interested and motivated to use device stating that she feels confident and good about using it. Pt dragged her finger on the screen today but this was decreased with min cueing. Reviewed with Patient Goals,Progress Being Made,Home Exercise Program Patient/Caregiver Understanding Good Plan Amount of Therapy Recommended 4 Months Frequency of Treatment Once a Week Length of Session 45 Minutes Treatment Emphasis Next Session Train pt and pt's of SGD and seeking funding. Therapeutic Contents AAC,Client Education, Swallowing/Feeding Provided Patient/Caregiver Instruction Home Exercise Program,Plan of Care,Questions/Concerns Therapy Recommendations Continue with Current Program
--- NOTE | 2021-12-06 11:43 | ST.OPTN ---
Visit Care Team Role Provider Type Helen Burroughs MD Family Provider Physician Primary Care Provider Address: [address] [place] [address], [id number] Attending Provider Referring Provider Address: Phone: Fax: SUPERINTENDENT LAUNDRY Treatment Note SUPERINTENDENT LAUNDRY Clinical Instructor Line Start: 01/03/21 16:53 Freq: Status: Active Protocol: Document 12/06/21 10:02 BUCK (Rec: 12/06/21 10:02 BUCK [id number]) Clinical Instructor Signature Clinical Instructor Clinical Instructor Yes SUPERINTENDENT LAUNDRY Treatment Note Start: 11/30/20 16:59 Freq: Status: Active Protocol: Document 12/05/21 16:30 EK (Rec: 12/05/21 16:59 EK [id number]) Speech Pathology Treatment Note Session Time Visit Start Time 15:30 Visit Stop Time 16:15 Total Visit Minutes 45 Visit Information Visit Number 09/14 Plan of Care Dates 11/21/21 - 02/16/22 Insurance Information Medicare Setting Treatment Setting Outpatient Care Visit Type Note Type Treatment Note Next Note Type Next Note Type Treatment Note General Information Patient History The pt is a 75-yr-old female originally diagnosed with Parkinson's disease, 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 The pt has a history of very frequent falls, often several in a week. She and her deny. changes in cognitive status from falls. She is now wheelchair bound to prevent further falls.The pt lives at home with her , who is hard of hearing and has difficulty communicating with the pt unless he is at her side. Over the course of treatment, the pt and her have expressed concern of increased coughing with oral intake. MBS was administered on with findings of mild oral dysphagia and minimal to mild pharyngeal dysphagia, both secondary to reduced strength and coordination of musculature. The pt consumes a dysphagia mechanical diet with thin or nectar-thick liquids. Due to significant visual impairment, as well as PSP symptoms of weakness and slow movements, the pt requires feeding assistance. The pt's voice is becoming increasingly quieter and speech and language processing is progressively slower. The pt and her have consulted with [facility] and may be transferring to their care, if the pt's wheelchair and Speech Therapy needs, including ongoing swallow evaluation as needed and funding of and training on a Speech Generating Device (SGD) , will be covered. Subjective Others Present Additional Therapist Observations/Patient Presentation The pt arrived on time. Pt was appeared very fatigued, likely due to PT session taking place right before speech session. This was evidenced by slower than usual response time, decreased accuracy, and listing to the right. Pt also verbally stated that she was worn out. Session conducted and note written by student SUPERINTENDENT LAUNDRY Marilyn Curry. Chief Complaint(s) Speech,Language,Swallowing, Cognitive Patient Knowledge/Awareness of SUPERINTENDENT LAUNDRY Role Good in Treatment Parent/Caretake Knowledge/Awareness of Good SUPERINTENDENT LAUNDRY Role in Treatment Objective Short Term Goals 1. The pt will follow safe swallow strategies with prompting as needed to reduce risk of aspiration and meet nutrition and hydration needs. 2. The pt will demonstrate ability to use SGD with 75% accuracy in therapeutic trials to improve her ability to communicate her wants, needs, and ideas to functional communication partners. Alf Goals 1. The pt will tolerate least restrictive diet to meet her nutrition and hydration needs. 2. The pt will demonstrate independent ability to gain her 's/CG's attention via a SGD to increase safety and improve quality of life. 3. With caregiver assistance as needed, the pt will demonstrate ability to communicate her wants, needs and ideas via a SGD. Treatment Activities Targeted navigating two folders deep into the device. Pt's overall accuracy appeared to be impacted by her level of fatigue. This was evidenced by the pt dragging her finger more than compared to last session and grunting when lifting her finger to a farther away button. When given a demonstration and 1 visual prompt, pt navigated two layers into the device in 4/5 trials. Accuracy decreased when pt attempted to navigate 3 pages into the device. When pt was asked was that what you meant? after hitting an incorrect/correct button, pt answered correctly 100% of the time. Trialed using a stylus pen, pt's accuracy decreased with the stylus. At the end of the session, provided caregiver education RE device usage and navigation to trial at home over this next week. Assessment Patient Response to Treatment Good Rehab Potential Fair Impairments Identified Cognitive communication, Swallow,Voice Progress Towards Goals Delayed Progress Assessment of Overall Progress Declining Assessment of Improvement Pt continues to demonstrate good carryover of independent awakening the device as well as turning the alarm button on and off, and calling her spouse's name. Pt demonstrated good receptive, expressive, and cognitive language skills by demonstrating reliable yes/ no answers. This will be useful in repairing communication breakdowns if/ when pt accidentally hits an incorrect button. using Reviewed with Patient Goals,Progress Being Made,Home Exercise Program Patient/Caregiver Understanding Good Plan Amount of Therapy Recommended 4 Months Frequency of Treatment Once a Week Treatment Emphasis Next Session Train pt and pt's of SGD and seeking funding. Therapeutic Contents AAC,Client Education, Swallowing/Feeding Provided Patient/Caregiver Instruction Home Exercise Program,Plan of Care,Questions/Concerns Therapy Recommendations Continue with Current Program
--- NOTE | 2021-12-20 17:57 | ST.OPTN ---
Visit Care Team Role Provider Type Helen Burroughs MD Family Provider Physician Primary Care Provider Address: [address] [place] [address], [id number] Attending Provider Referring Provider Address: Phone: Fax: GAME ADVISOR Treatment Note GAME ADVISOR Clinical Instructor Line Start: 01/03/21 16:53 Freq: Status: Active Protocol: Document 12/05/21 10:02 BUCK (Rec: 12/06/21 10:02 BUCK [id number]) Clinical Instructor Signature Clinical Instructor Clinical Instructor Yes GAME ADVISOR Treatment Note Start: 11/30/20 16:59 Freq: Status: Active Protocol: Document 12/20/21 16:27 BUCK (Rec: 12/20/21 16:43 BUCK [id number]) Speech Pathology Treatment Note Session Time Visit Start Time 14:30 Visit Stop Time 15:30 Total Visit Minutes 60 Visit Information Visit Number 10/15 Plan of Care Dates 11/21/21 - 02/16/22 Insurance Information Medicare Setting Treatment Setting Outpatient Care Visit Type Note Type Treatment Note Next Note Type Next Note Type Treatment Note General Information Patient History The pt is a now 76-yr-old female originally diagnosed with Parkinson's disease, 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 The pt has a history of very frequent falls, often several in a week. She and her deny. changes in cognitive status from falls. She is now wheelchair bound to prevent further falls.The pt lives at home with her , who is hard of hearing and has difficulty communicating with the pt unless he is at her side. Over the course of treatment, the pt and her have expressed concern of increased coughing with oral intake. MBS was administered on with findings of mild oral dysphagia and minimal to mild pharyngeal dysphagia, both secondary to reduced strength and coordination of musculature. The pt consumes a dysphagia mechanical diet with thin or nectar-thick liquids. Due to significant visual impairment, as well as PSP symptoms of weakness and slow movements, the pt requires feeding assistance. The pt's voice is becoming increasingly quieter and speech and language processing is progressively slower. The pt and her have consulted with [facility] and may be transferring to their care, if the pt's wheelchair and Speech Therapy needs, including ongoing swallow evaluation as needed will be covered. Subjective Others Present Student Observations/Patient Presentation The pt arrived on time accompanied by her . The couple brought SGD with them and spouse reported the pt was able to show him and her CG how the device works but exhibited difficulty pointing to distinct items without several errors d/t finger dragging along the screen. He informed that the pt is never left alone, so there is limited need for the device features that get others' attention. He expressed concern that the pt' s cognitive skills, strength and vision will prohibit her from being able to use the device in the future. He further expressed ongoing consideration of Hospice care, which would not cover the expenses of the device. Additionally, he reported the pt is having increased dysphagia symptoms that have resulted in near choking events. He attempted to use a cough-assist device unsuccessfully, although the pt eventually was able to clear her airway independently . This is happening with greater frequency despite foods being cut into very small pieces and the pt consuming NTLs. He also had questions RE safety with straw use. Chief Complaint(s) Speech,Language,Swallowing, Cognitive Patient Knowledge/Awareness of GAME ADVISOR Role Good in Treatment Parent/Caretake Knowledge/Awareness of Good GAME ADVISOR Role in Treatment Objective Short Term Goals 1. The pt will follow safe swallow strategies with prompting as needed to reduce risk of aspiration and meet nutrition and hydration needs. 2. The pt will demonstrate ability to use SGD with 75% accuracy in therapeutic trials to improve her ability to communicate her wants, needs, and ideas to functional communication partners. DISCONTINUE GOAL PER PT/SPOUSE REQUEST Snf Goals 1. The pt will tolerate least restrictive diet to meet her nutrition and hydration needs. 2. The pt will demonstrate independent ability to gain her 's/CG's attention via assistive devices as needed to increase safety and improve quality of life. 3. With caregiver assistance as needed, the pt will demonstrate ability to communicate her wants, needs and ideas via a SGD. DISCONTINUE GOAL PER PT/SPOUSE REQUEST Treatment Activities Consulted with the pt and her RE the above concerns. Skilled education and feedback was provided RE the SGD and alternative communication options over disease progression. It was agreed that funding and use of this device will be discontinued given limited current need and the absence of funding from [facility]osp[facility] . This GAME ADVISOR agreed to contact Tari at [facility] to discuss options for limited ongoing in-home GAME ADVISOR services targeting assessment and CG training in areas of communication and swallow safety as the pt's needs mold changer disease progression should the pt transition to Hospice care. Educated pt/spouse RE potential benefits and detriments of straw use, depending on individual patients' abilities and needs, in answer to spouse's questions. Training provided in bolus control via CG pinching of straw. Spouse verbalized understanding. Assessed the pt's swallow safety with pureed solids, NTLs, and HTLs, liquids via straw. The pt was unable to self-feed but able to participate in feeding with [id number] assistance, which was encouraged. She followed direction for small sips from straw without need for GAME ADVISOR bolus control. Swallow trigger with initial trial was delayed ~6 sec. Swallow trigger with all other trials was timely with organized bolus control. No overt s/sx of aspiration were observed with pureed and HTLs; voice remained clear, and no oral residue was observed. The pt exhibited delayed mild throat clearing and mildly wet vocal quality with trials of NTL, indicating laryngeal penetration either during or after the swallow. Vocal quality cleared with throat clearing + swallow. Skilled feedback and education was provided to pt/spouse. Recommend pureed texture. Continue NTLs for now, decreased to HTLs if pt is demonstrating significant throat clearing or coughing with NTLs. This GAME ADVISOR agreed to provide diet guidelines and resources to pt/spouse via email, which was done following the session. Assessment Patient Response to Treatment Good Rehab Potential Fair Impairments Identified Cognitive communication, Swallow,Voice Assessment of Overall Progress Declining Assessment of Improvement Training and pursuit of SGD funding will be discontinued per pt/spouse request. Will continue to provide communication support as needed and able to ensure the pt is able to express her wants/needs over the course of disease progression. The pt safely tolerated pureed texture and HTLs; signs of mild laryngeal penetration were observed with NTLs. The pt's safety with dysphagia mechanical textures appears to be worsening, per spouse report, although trials were not administered for assessment during today's session. The pt is able to participate in self-feeding with [id number] assistance , although this significantly slows the eating process. She exhibited safety with straw use when straw was placed at vs beyond the lips and with instructions for small swallows. Swallow safety may be compromised if straw placement in further in the mouth, as this may speed bolus presentation beyond the her ability to control. Her verbalized understanding. Given the progressive nature of the disease, it is highly recommended that the pt receive ongoing Speech Therapy services while under Hospice care, should she choose that level of care. The need for skilled services is anticipated for periodic assessment of communication and swallow safety skills and pt/CG education in order to maintain the pt's ability to communicate wants/needs and participate in decisions related to her care, to provide safest options to meet the pt's nutrition and hydration needs, and to provide highest quality of life over disease progression. This GAME ADVISOR will collaborate with [facility] to discuss such options in order to assist the pt and her spouse with medical decision making. Reviewed with Patient Goals Patient/Caregiver Understanding Good Plan Amount of Therapy Recommended 4 Months Frequency of Treatment Once a Week Treatment Emphasis Next Session Continue swallow safety assessment; assist w/ resources, collaborative care Therapeutic Contents AAC,Client Education, Swallowing/Feeding Additional Areas of Treatment Caregiver education/training Provided Patient/Caregiver Instruction Home Exercise Program,Plan of Care,Questions/Concerns Therapy Recommendations Continue with Current Program
--- NOTE | 2021-12-27 18:01 | ST.OPTN ---
Visit Care Team Role Provider Type Helen Burroughs MD Family Provider Physician Primary Care Provider Address: [address] [place] [address], [id number] Attending Provider Referring Provider Address: Phone: Fax: ARM REST BUILDER Treatment Note ARM REST BUILDER Clinical Instructor Line Start: 01/03/21 16:53 Freq: Status: Active Protocol: Document 12/05/21 10:02 BUCK (Rec: 12/06/21 10:02 BUCK [id number]) Clinical Instructor Signature Clinical Instructor Clinical Instructor Yes ARM REST BUILDER Treatment Note Start: 11/30/20 16:59 Freq: Status: Active Protocol: Document 12/27/21 17:51 BUCK (Rec: 12/27/21 18:01 BUCK [id number]) Speech Pathology Treatment Note Session Time Visit Start Time 14:30 Visit Stop Time 15:00 Total Visit Minutes 30 Visit Information Visit Number 11/14 Plan of Care Dates 11/21/21 - 02/16/22 Insurance Information Medicare Setting Treatment Setting Outpatient Care Visit Type Note Type Treatment Note Next Note Type Next Note Type Treatment Note General Information Patient History The pt is a now 76-yr-old female originally diagnosed with Parkinson's disease, 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 The pt has a history of very frequent falls, often several in a week. She and her deny. changes in cognitive status from falls. She is now wheelchair bound to prevent further falls.The pt lives at home with her , who is hard of hearing and has difficulty communicating with the pt unless he is at her side. Over the course of treatment, the pt and her have expressed concern of increased coughing with oral intake. MBS was administered on with findings of mild oral dysphagia and minimal to mild pharyngeal dysphagia, both secondary to reduced strength and coordination of musculature. The pt consumes a dysphagia mechanical diet with thin or nectar-thick liquids. Due to significant visual impairment, as well as PSP symptoms of weakness and slow movements, the pt requires feeding assistance. The pt's voice is becoming increasingly quieter and speech and language processing is progressively slower. The pt and her have consulted with [facility] and may be transferring to their care, if the pt's wheelchair and Speech Therapy needs, including ongoing swallow evaluation as needed will be covered. Subjective Others Present Student Observations/Patient Presentation The pt arrived on time accompanied by her , who informed that the company that funding for the pt's wheelchair had been met. Yesterday, this ARM REST BUILDER spoke with [facility] who informed that [facility] would not provide funding for an AAC but would consider providing for ARM REST BUILDER services on a limited as-needed basis to address comfort, safety and QOL concerns. Pt/spouse were educated of this information by email yesterday by this ARM REST BUILDER . They verbalized receiving the message. The pt stated to this ARM REST BUILDER, I' m slowing down and spouse reported eating breakfast this morning had taken the pt 4 hrs with CG support. Chief Complaint(s) Speech,Language,Swallowing, Cognitive Patient Knowledge/Awareness of ARM REST BUILDER Role Good in Treatment Parent/Caretake Knowledge/Awareness of Good ARM REST BUILDER Role in Treatment Objective Short Term Goals 1. The pt will follow safe swallow strategies with prompting as needed to reduce risk of aspiration and meet nutrition and hydration needs. 2. The pt will demonstrate ability to use SGD with 75% accuracy in therapeutic trials to improve her ability to communicate her wants, needs, and ideas to functional communication partners. DISCONTINUE GOAL PER PT/SPOUSE REQUEST Marketing Operations Consultant Goals 1. The pt will tolerate least restrictive diet to meet her nutrition and hydration needs. 2. The pt will demonstrate independent ability to gain her 's/CG's attention via assistive devices as needed to increase safety and improve quality of life. 3. With caregiver assistance as needed, the pt will demonstrate ability to communicate her wants, needs and ideas via a SGD. DISCONTINUE GOAL PER PT/SPOUSE REQUEST Treatment Activities Consulted with the pt and her RE the above information. Agreed to target low-tech communication options and continue ongoing assessment of swallow safety in outpatient therapy, in preparation of likely discharge soon to hospice. Resources and recipes for pureed meal preparation was provided to the couple with recommendations for maintaining highest level of nutrition given the small amount of intake the pt is showing, with weight loss associated with this. They were agreeable to all information and POC. Assessment Patient Response to Treatment Good Rehab Potential Fair Impairments Identified Cognitive communication, Swallow,Voice Assessment of Overall Progress Declining Assessment of Improvement The pt continues to appear to be declining in strength with extended time required for minimal oral intake. Transition to hospice is anticipated. Will target development of low-tech communication aid and ongoing swallow assessment to promote ease of transition and highest level of safety and QOL for the pt. Reviewed with Patient Goals Patient/Caregiver Understanding Good Plan Amount of Therapy Recommended 1-2 Months Frequency of Treatment Once a Week Length of Session 45 Minutes Treatment Emphasis Next Session Communication board/book; assist w/ resources, collaborative care Therapeutic Contents AAC,Client Education, Swallowing/Feeding Additional Areas of Treatment Caregiver education/training Provided Patient/Caregiver Instruction Home Exercise Program,Plan of Care,Questions/Concerns Therapy Recommendations Continue with Current Program
--- NOTE | 2022-01-15 15:21 | ST.OPDS ---
Visit Care Team Role Provider Type Helen Burroughs MD Family Provider Physician Primary Care Provider Address: [address] [place] [address], [id number] Attending Provider Referring Provider Address: Phone: Fax: SURGICAL INSTRUMENTS INSPECTOR Treatment Note SURGICAL INSTRUMENTS INSPECTOR Clinical Instructor Line Start: 01/03/21 16:53 Freq: Status: Active Protocol: Document 12/05/21 10:02 BUCK (Rec: 12/06/21 10:02 BUCK [id number]) Clinical Instructor Signature Clinical Instructor Clinical Instructor Yes SURGICAL INSTRUMENTS INSPECTOR Treatment Note Start: 11/30/20 16:59 Freq: Status: Active Protocol: Document 01/15/22 15:20 BUCK (Rec: 01/15/22 15:21 BUCK [id number]) Speech Pathology Treatment Note Visit Information Plan of Care Dates 11/21/21 - 02/16/22 Insurance Information Medicare Setting Treatment Setting Outpatient Care Visit Type Note Type Discharge Summary General Information Patient History The pt is a now 76-yr-old female originally diagnosed with Parkinson's disease, 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 The pt has a history of very frequent falls, often several in a week. She and her deny. changes in cognitive status from falls. She is now wheelchair bound to prevent further falls.The pt lives at home with her , who is hard of hearing and has difficulty communicating with the pt unless he is at her side. Over the course of treatment, the pt and her have expressed concern of increased coughing with oral intake. MBS was administered on with findings of mild oral dysphagia and minimal to mild pharyngeal dysphagia, both secondary to reduced strength and coordination of musculature. The pt consumes a dysphagia mechanical diet with thin or nectar-thick liquids. Due to significant visual impairment, as well as PSP symptoms of weakness and slow movements, the pt requires feeding assistance. The pt's voice is becoming increasingly quieter and speech and language processing is progressively slower. The pt and her have consulted with [facility] and may be transferring to their care, if the pt's wheelchair and Speech Therapy needs, including ongoing swallow evaluation as needed will be covered. Subjective Observations/Patient Presentation The patient has transferred to Hospice care and is discharged from outpatient services. Chief Complaint(s) Speech,Language,Swallowing, Cognitive Additional Areas of Concern Saliva management Objective Short Term Goals 1. The pt will follow safe swallow strategies with prompting as needed to reduce risk of aspiration and meet nutrition and hydration needs. 2. The pt will demonstrate ability to use SGD with 75% accuracy in therapeutic trials to improve her ability to communicate her wants, needs, and ideas to functional communication partners. DISCONTINUE GOAL PER PT/SPOUSE REQUEST Nursing Home Goals 1. The pt will tolerate least restrictive diet to meet her nutrition and hydration needs. 2. The pt will demonstrate independent ability to gain her 's/CG's attention via assistive devices as needed to increase safety and improve quality of life. 3. With caregiver assistance as needed, the pt will demonstrate ability to communicate her wants, needs and ideas via a SGD. DISCONTINUE GOAL PER PT/SPOUSE REQUEST Plan Therapy Recommendations Discharge from Speech Therapy Reason for Discharge Transfer to Hospice
== END 2022-01-17 12:29 ==
LOC: SP 14:30
PROVIDERS: Family Provider Internal Medicine; PCP Internal Medicine
DX: G20 Parkinson's disease (principal); R13.10 Dysphagia, unspecified
CPT/HCPCS: 92507; 92523; 92526; 92607; 92609; 92610; 97129; 97130